=== PATIENT | female | born 1950 | race Caucasian/White ===

== ENCOUNTER 2021-11-06 11:48 | Outpatient (REF) | payer MEDICARE, MEDICAID, SELFPAY ==
[2021-11-06 13:41] LABS: MANUAL DIFF FLAG NO
[2021-11-06 13:53] LABS: Basophils Absolute Auto 0.1 X10*3/uL (0.0-0.2); Eosinophils Absolute Auto 0.3 X10*3/uL (0.0-0.4); Eosinophils Percent Auto 5.1 % (0-4); Hematocrit 31.1 % (37.0-47.0); Hemoglobin 8.6 g/dl (12.0-16.0); Imm Gran Abs Auto 0.02 X10*3/uL (0.00-0.03); Imm Gran Pct Auto 0.3 % (0.0-0.4); Lymphocytes Absolute Auto 1.3 X10*3/uL (1.2-4.9); Lymphocytes Percent Auto 22.7 % (20-40); Mean Corpuscular HGB Conc 27.7 g/dl (31.0-35.0); Mean Corpuscular Hemoglobin 20.9 pg (27.0-33.0); Mean Corpuscular Volume 75.5 fL (80.0-98.0); Mean Platelet Volume 9.8 fL (9.4-12.3); Monocytes Absolute Auto 0.4 X10*3/uL (0.1-1.2); Monocytes Percent Auto 6.8 % (2-11); Neutrophils Absolute Auto 3.7 x10*3/uL (2.0-8.3); Neutrophils Percent Auto 64.1 % (45-73); Platelet Count 238 X10*3/uL (160-400); Red Blood Count 4.12 X10*6/uL (4.20-5.50); Red Cell Distribution Width 21.4 % (11.0-16.0); White Blood Count 5.7 X10*3/uL (4.8-10.8)
[2021-11-06 14:14] LABS: Alanine Aminotransferase 10 U/L (0-31); Albumin Level 4.2 g/dL (3.5-5.0); Alkaline Phosphatase 81 U/L (39-117); Anion Gap 12 (12-20); Aspartate Amino Transferase 13 U/L (5-31); Bilirubin Total 0.3 mg/dL (0.0-1.0); Blood Urea Nitrogen 12 mg/dL (9-16); Carbon Dioxide 24 mmol/L (22-29); Chloride 103 mmol/L (96-108); Cholesterol 94 mg/dL; Estimated Glomerular Filt Rate 59; Glucose Fasting 103 mg/dL (60-99); HDL Cholesterol 43 mg/dL; LDL Cholesterol Calculated 35 mg/dl; Potassium 4.9 mmol/L (3.3-5.1); Sodium 134 mmol/L (135-145); Total Protein 6.6 g/dL (6.5-8.0); Triglycerides 84 mg/dL
[2021-11-06 14:23] LABS: Ferritin 30 ng/mL (10-250)
[2021-11-06 14:41] LABS: Vitamin B12 824 pg/mL (200-900)
[2021-11-12 13:02] LABS: Vitamin D 25-OH, D2 7 ng/mL; Vitamin D 25-OH, D3 64 ng/mL; Vitamin D 25-OH, Total 71 ng/mL (30-100)
== END 2021-11-06 11:49 | disposition home or self-care (01) ==
LOC: HO.HMGCLDS 11:48
PROVIDERS: Visit Provider Internal Medicine
DX: I10 Essential (primary) hypertension (principal); D50.9 Iron deficiency anemia, unspecified; J45.40 Moderate persistent asthma, uncomplicated; M81.0 Age-related osteoporosis without current pathological fracture; Z76.89 Persons encountering health services in other specified circumstances; Z79.01 Long term (current) use of anticoagulants; Z95.2 Presence of prosthetic heart valve
CPT/HCPCS: 36415; 80053; 80061; 82306; 82607; 82728; 85025

== ENCOUNTER → 2021-11-14 12:25 | Outpatient (BNV) | payer MEDICARE, MEDICAID, SELFPAY | PROVIDERS: PCP Internal Medicine; Referring Provider Internal Medicine; Visit Provider Internal Medicine | DX: D50.9 Iron deficiency anemia, unspecified (principal) | CPT/HCPCS: 99204; 99213; 99214 ==

== ENCOUNTER 2021-12-04 08:11 | Outpatient (REF) | payer MEDICARE, MEDICAID, SELFPAY | END 2021-12-04 08:12 | disposition home or self-care (01) | LOC: HO.MDS 08:11 | PROVIDERS: Visit Provider Internal Medicine | DX: D50.9 Iron deficiency anemia, unspecified (principal) | CPT/HCPCS: 96365; J1756 ==

== ENCOUNTER 2021-12-10 14:30 | Outpatient (REF) | payer MEDICARE, MEDICAID, SELFPAY | END 2021-12-10 14:31 | disposition home or self-care (01) | LOC: HO.MDS 14:30 | PROVIDERS: Visit Provider Internal Medicine | DX: D50.9 Iron deficiency anemia, unspecified (principal) | CPT/HCPCS: 96365; J1756 ==

== ENCOUNTER 2021-12-17 15:10 | Outpatient (REF) | payer MEDICARE, MEDICAID, SELFPAY | END 2021-12-17 15:11 | disposition home or self-care (01) | LOC: HO.MDS 15:10 | PROVIDERS: PCP Internal Medicine; Visit Provider Internal Medicine | DX: D50.9 Iron deficiency anemia, unspecified (principal) | CPT/HCPCS: 96365; J1756 ==

== ENCOUNTER 2022-01-15 12:55 | Outpatient (REF) | payer MEDICARE, MEDICAID, SELFPAY | END 2022-01-15 12:56 | disposition home or self-care (01) | LOC: HO.LAB 12:55 | PROVIDERS: PCP Internal Medicine; Visit Provider Internal Medicine Cardiovascular Disease | DX: Z13.89 Encounter for screening for other disorder (principal) ==

== ENCOUNTER 2022-03-17 13:31 | Inpatient (IN) | payer MEDICARE, MEDICAID, SELFPAY ==
--- NOTE | ~2022-03-17 | US_ITS ---
EXAMINATION: US VENOUS ULTRASOUND WITH DOPPLER LOWER EXTREMITY, BILATERAL CLINICAL INFORMATION: Lower extremity swelling, rule out DVT. COMPARISON: None TECHNIQUE: Ultrasound of the deep veins is performed from the hip to the calf with compression sonography and color and pulse Doppler assessment. Spectral analysis with color-flow imaging is performed. FINDINGS: RIGHT: There is normal venous compression and respiratory variation and augmented flow. The visualized common femoral vein, superficial femoral vein, profunda femoral vein, popliteal vein, and the trifurcation region shows no evidence of deep venous thrombosis. No right popliteal cyst. The subcutaneous soft tissues are unremarkable. LEFT: There is normal venous compression and respiratory variation and augmented flow. The visualized common femoral vein, superficial femoral vein, profunda femoral vein, popliteal vein, and the trifurcation region shows no evidence of deep venous thrombosis. No left popliteal cyst. The subcutaneous soft tissues are unremarkable. If the patient's symptoms persist, followup ultrasound in 5 days 7 days might be of value to exclude proximal propagation from a non-visualized calf vein. US/US venous duplex LE BI IMPRESSION: No evidence for deep venous thrombosis in the visualized veins of the bilateral lower extremities.
--- NOTE | ~2022-03-17 | XR_ITS ---
EXAMINATION: XR CHEST CLINICAL INFORMATION: Shortness of breath COMPARISON: 02/11/2020 TECHNIQUE: Frontal view of the chest was obtained. FINDINGS: Again seen are changes of median sternotomy. Heart size within normal limits. No CHF. Small right effusion/pleural thickening is present. Suture anchor present in the right humeral head. XR/XR chest 1V IMPRESSION: No acute intrathoracic disease.
[2022-03-17 14:20] VITALS: BP 146/52; PULSE 55; RESP 22; TEMP 36.9; O2SAT 93; BMI 40.0
--- NOTE | 2022-03-17 14:31 | ECG_ITS ---
Test Reason : LE EDEMA Blood Pressure : / mmHG Vent. Rate : 053 BPM Atrial Rate : 053 BPM P-R Int : 164 ms QRS Dur : 112 ms QT Int : 490 ms P-R-T Axes : 050 081 000 degrees QTc Int : [address] & T wave abnormality, consider anterior ischemia RSR' or QR pattern in V1 suggests right ventricular conduction delay Abnormal ECG When compared with ECG of 13-NOV-2017 13:41, Vent. rate has decreased BY 36 BPM Questionable change in QRS duration Referred By: Generic ED Physician Electronically Signed By:VICKY CANTU MD
[2022-03-17 15:25] LABS: MANUAL DIFF FLAG NO
[2022-03-17 15:28] LABS: Basophils Absolute Auto 0.1 X10*3/uL (0.0-0.2); Basophils Percent Auto 0.8 % (0-2); Eosinophils Absolute Auto 0.3 X10*3/uL (0.0-0.4); Eosinophils Percent Auto 3.4 % (0-4); Hematocrit 35.5 % (37.0-47.0); Hemoglobin 10.9 g/dl (12.0-16.0); Imm Gran Abs Auto 0.07 X10*3/uL (0.00-0.03); Imm Gran Pct Auto 0.7 % (0.0-0.4); Lymphocytes Absolute Auto 1.3 X10*3/uL (1.2-4.9); Lymphocytes Percent Auto 13.1 % (20-40); Mean Corpuscular HGB Conc 30.7 g/dl (31.0-35.0); Mean Corpuscular Hemoglobin 23.9 pg (27.0-33.0); Mean Corpuscular Volume 77.7 fL (80.0-98.0); Monocytes Absolute Auto 0.7 X10*3/uL (0.1-1.2); Neutrophils Absolute Auto 7.5 x10*3/uL (2.0-8.3); Platelet Count 249 X10*3/uL (160-400); Red Blood Count 4.57 X10*6/uL (4.20-5.50); Red Cell Distribution Width 23.3 % (11.0-16.0)
[2022-03-17 15:42] LABS: Anion Gap 13 (12-20); Blood Urea Nitrogen 15 mg/dL (9-16); Calcium 8.9 mg/dL (8.4-10.2); Carbon Dioxide 30 mmol/L (22-29); Chloride 93 mmol/L (96-108); Creatinine Clr Calc Pharmacy 57.9; Estimated Glomerular Filt Rate > 60; Glucose Random 94 mg/dL (60-115); Potassium 5.3 mmol/L (3.3-5.1); Sodium 131 mmol/L (135-145)
[2022-03-17 15:47] LABS: COVID-19 Test Negative (Negative); IDNOW Serial# 55D5AD1C
[2022-03-17 15:49] LABS: B Type Natriuretic Peptide 526 pg/mL (<100)
--- NOTE | 2022-03-17 16:34 | ED_ITS ---
HPI - SOB/Dyspnea General Chief Complaint: Weakness Stated Complaint: both legs swelling quest of clots Time Seen by Provider: 03/17/22 16:10 Source: patient and family Mode of arrival: ambulatory History of Present Illness HPI Narrative: 71-year-old female who is currently on anticoagulation and is under the care of Dr. Arriaga for persistent anemia that is suspected to be secondary to GI bleed due to anticoagulation. Patient is also on diuretics but states that she had a urinary tract infection last week with urinary frequency so she stopped taking her Lasix. Patient and the son at bedside states that she had 2 blood transfusions last week when on Thursday and the 2nd on Thursday and received Lasix at that time as well. Patient states that despite increasing her oral Lasix she states that her bilateral lower extremities have continue to stay edematous she has noted increased dyspnea on exertion with orthopnea. She also describes significant cramping within her bilateral lower extremities. Related Data Home Medications Medication Instructions Recorded Confirmed baclofen 10 mg tablet 10 mg PO DAILY 10/30/21 03/10/22 cephalexin 500 mg capsule 500 mg PO QID 10/30/21 03/10/22 escitalopram oxalate 20 mg tablet 20 mg PO DAILY 10/30/21 03/10/22 (Lexapro) furosemide 40 mg tablet (Lasix) 40 mg PO DAILY 10/30/21 03/10/22 gabapentin 100 mg capsule 200 mg PO TID 10/30/21 03/10/22 (Neurontin) losartan 25 mg tablet (Cozaar) 25 mg PO DAILY 10/30/21 03/10/22 metoprolol tartrate 100 mg tablet 100 mg PO BID 10/30/21 03/10/22 (Lopressor) potassium chloride 10 mEq 10 meq PO DAILY 10/30/21 03/10/22 tablet,extended release (K-Tab) tramadol 50 mg tablet (Ultram) 50 mg PO Q6H PRN Pain, Moderate 10/30/21 03/10/22 warfarin 1 mg tablet (Jantoven) 1 - 9 mg PO BEDTIME 10/30/21 03/10/22 zolpidem 10 mg tablet (Ambien) 10 mg PO BEDTIME PRN Insomnia 10/30/21 03/10/22 Acidophilus 5 mg PO DAILY 11/14/21 03/10/22 Vitamin D3 1,000 units PO DAILY 11/14/21 03/10/22 albuterol sulfate 90 mcg/actuation 2 puff PO Q6H 11/14/21 03/10/22 aerosol inhaler (Ventolin HFA) aspirin 325 mg PO DAILY 11/14/21 03/10/22 biotin 5,000 units PO DAILY 11/14/21 03/10/22 doxepin 25 mg capsule 1 cap PO BEDTIME 11/14/21 03/10/22 lorazepam 1 mg tablet 1 tab PO BID 11/14/21 03/10/22 magnesium 320 mg PO DAILY 11/14/21 03/10/22 vitamin B complex 1.3 mg PO DAILY 11/14/21 03/10/22 Previous Rx's Medication Instructions Recorded fluticasone furoate 100 1 ea inhalation DAILY 30 days #60 11/27/21 mcg-vilanterol 25 mcg/dose ea inhalation powder (Breo Ellipta) simvastatin 40 mg tablet (Zocor) 40 mg PO DAILY 90 days #90 tabs 01/09/22 ferrous sulfate 325 mg (65 mg 325 mg PO BID #60 tabs 03/10/22 iron) tablet (Feosol) ciprofloxacin HCl 250 mg tablet 250 mg PO BID #14 tabs 03/12/22 (Cipro) Allergies Allergy/AdvReac Type Severity Reaction Status Date / Time adhesive [ADHESIVE] Allergy Unknown LOCAL Verified 11/27/21 12:17 REACTION ENVIRONMENTAL Allergy Unknown UNK Uncoded 02/09/20 14:48 Review of Systems Review of Systems: Pertinent positives and negatives as stated in HPI 10 point review of systems otherwise negative. FOR[facility], [facility] Past Medical History Source: nursing notes reviewed Medical History Anemia Family History Family History Daughter Mental health disorder Substance use disorder Father Emphysema lung Mother Heart disease Stroke Pacemaker Arthritis Family/Other Colon cancer Sister Crohn's disease Social History Social History Household Members: Children Housing: Apartment Are you a primary career guidance counselor to a significant other at home: No Do you presently have visiting nurse or other home services: No Patient Tobacco Use Status: Never used Tobacco e-Cigarette/Vaping Use: Never Used Advance Directives: Yes Advance Directives Information Provided: No Advance Directives on File: No Advance Directives Date on File: 03/17/22 service: No Current occupational status: retired Cognitive needs: No Hearing needs: No Vision needs: Yes Physical Exam Vital Signs: Vital Signs: Last Vital Signs Temp 97.9 F 03/17/22 16:57 Pulse 60 03/17/22 16:57 Resp 20 03/17/22 16:57 BP 174/70 H 03/17/22 16:57 Pulse Ox 91 L 03/17/22 16:57 O2 Del Method 03/17/22 16:57 BMI result Body Mass Index 40.0 VITAL SIGNS: Reviewed. GENERAL: Well developed, well nourished, in no acute distress. HEAD: Normocephalic/atraumatic EYES: PERRLA, EOMI EARS: Ext canals without abnormality NOSE: Nares patent bilateral OROPHARYNX: no oral lesions noted, posterior pharynx clear LUNGS: Good inspiratory effort with bibasilar rales. No adventitious sounds or accessory muscle use. SpO2<93> CARDIOVASCULAR: Regular rate and rhythm without noted murmurs, no JVD but 2 to 3+ pitting edema to bilateral lower extremities ABDOMEN: Soft, non-tender, non-distended with bowel sounds. SHAD: Melena noted, good rectal tone MUSCULOSKELETAL: No tenderness, deformities, or effusions noted on gross inspection. EXTREMITIES: No cyanosis, clubbing or edema. SKIN: Inspection of the skin reveals no rashes NEUROLOGIC: Alert and oriented x 4. Strength and sensation to light touch were grossly intact x 4. Course Course Course Narrative: 71-year-old female with history and clinical presentation consistent with likely CHF exacerbation secondary to a combination of anemia as well as lapse in the use of her diuretics. On review of all investigations she is noted to have a hyperkalemia that may explain the reason for her current leg cramping. Will provide patient with D50/insulin/calcium gluconate for hyperkalemia. 1710: Will treat hyperkalemia with a combination of calcium gluconate, insulin, D50. Nursing reports that patient has had increased shortness of breath with SpO2 of 91% and was placed on supplemental oxygen. I discussed case with inpatient hospitalist who accepts admission. MDM - SOB/Dyspnea Lab Data Result diagrams: 03/17/22 15:18 03/17/22 15:18 Labs: Lab Results 03/17/22 03/17/22 03/17/22 Range/Units 15:18 15:18 15:18 WBC 10.0 (4.8-10.8) X10*3/uL RBC 4.57 D (4.20-5.50) X10*6/uL Hgb 10.9 L D (12.0-16.0) g/dl Hct 35.5 L D (37.0-47.0) % MCV 77.7 L (80.0-98.0) fL MCH 23.9 L (27.0-33.0) pg MCHC 30.7 L (31.0-35.0) g/dl RDW 23.3 H (11.0-16.0) % Plt Count 249 (160-400) X10*3/uL MPV 9.0 L (9.4-12.3) fL Immature Gran % (Auto) 0.7 H (0.0-0.4) % Neut % (Auto) 75.0 H (45-73) % Lymph % (Auto) 13.1 L (20-40) % [place] % (Auto) 7.0 (2-11) % Eos % (Auto) 3.4 (0-4) % Baso % (Auto) 0.8 (0-2) % Lymph # (Auto) 1.3 (1.2-4.9) X10*3/uL [place] # (Auto) 0.7 (0.1-1.2) X10*3/uL Eos # (Auto) 0.3 (0.0-0.4) X10*3/uL Baso # (Auto) 0.1 (0.0-0.2) X10*3/uL Abs Immat Gran (auto) 0.07 H (0.00-0.03) X10*3/uL Absolute Neuts (auto) 7.5 (2.0-8.3) x10*3/uL Absolute Nucleated RBC 0.000 (0.0-0.012) X10*3/uL Nucleated RBC % (auto) 0.0 (0.0-0.2) /100WBC PT (10.0-13.1) SEC INR (0.9-1.1) Sodium 131 L (135-145) mmol/L Potassium 5.3 H D (3.3-5.1) mmol/L Chloride 93 L (96-108) mmol/L Carbon Dioxide 30 H (22-29) mmol/L Anion Gap 13 (12-20) BUN 15 (9-16) mg/dL Creatinine 0.88 (0.5-1.4) mg/dL Estim Creat Clear Calc 57.9 Estimated GFR > 60 Random Glucose 94 (60-115) mg/dL Calcium 8.9 (8.4-10.2) mg/dL Magnesium 2.6 (1.6-2.6) mg/dL Total Bilirubin 0.4 (0.0-1.0) mg/dL Direct Bilirubin 0.2 (0.0-0.5) mg/dL AST 18 (5-31) U/L ALT 15 (0-31) U/L Alkaline Phosphatase 73 (39-117) U/L Troponin I High Sens 4.0 (<3.5-17.0) ng/L B-Natriuretic Peptide 526 H (<100) pg/mL Total Protein 6.0 L (6.5-8.0) g/dL Albumin 3.7 (3.5-5.0) g/dL Stool Occult Blood (NEGATIVE) COVID-19 ([facility]) (Negative) COVID-19 Clin Com 03/17/22 03/17/22 03/17/22 Range/Units 15:19 17:08 17:56 WBC (4.8-10.8) X10*3/uL RBC (4.20-5.50) X10*6/uL Hgb (12.0-16.0) g/dl Hct (37.0-47.0) % MCV (80.0-98.0) fL MCH (27.0-33.0) pg MCHC (31.0-35.0) g/dl RDW (11.0-16.0) % Plt Count (160-400) X10*3/uL MPV (9.4-12.3) fL Immature Gran % (Auto) (0.0-0.4) % Neut % (Auto) (45-73) % Lymph % (Auto) (20-40) % [place] % (Auto) (2-11) % Eos % (Auto) (0-4) % Baso % (Auto) (0-2) % Lymph # (Auto) (1.2-4.9) X10*3/uL [place] # (Auto) (0.1-1.2) X10*3/uL Eos # (Auto) (0.0-0.4) X10*3/uL Baso # (Auto) (0.0-0.2) X10*3/uL Abs Immat Gran (auto) (0.00-0.03) X10*3/uL Absolute Neuts (auto) (2.0-8.3) x10*3/uL Absolute Nucleated RBC (0.0-0.012) X10*3/uL Nucleated RBC % (auto) (0.0-0.2) /100WBC PT 28.9 H (10.0-13.1) SEC INR 2.4 H (0.9-1.1) Sodium (135-145) mmol/L Potassium (3.3-5.1) mmol/L Chloride (96-108) mmol/L Carbon Dioxide (22-29) mmol/L Anion Gap (12-20) BUN (9-16) mg/dL Creatinine (0.5-1.4) mg/dL Estim Creat Clear Calc Estimated GFR Random Glucose (60-115) mg/dL Calcium (8.4-10.2) mg/dL Magnesium (1.6-2.6) mg/dL Total Bilirubin (0.0-1.0) mg/dL Direct Bilirubin (0.0-0.5) mg/dL AST (5-31) U/L ALT (0-31) U/L Alkaline Phosphatase (39-117) U/L Troponin I High Sens (<3.5-17.0) ng/L B-Natriuretic Peptide (<100) pg/mL Total Protein (6.5-8.0) g/dL Albumin (3.5-5.0) g/dL Stool Occult Blood POSITIVE (NEGATIVE) COVID-19 ([facility]) Negative (Negative) COVID-19 Clin Com See Note Critical Care Time Critical Care Time Critical Care Time: Yes Total Critical Care Time: 30 Attestation: I personally attest to this time spent taking care of the patient. Discharge Plan Discharge Clinical Impression: CHF exacerbation, Chronic anticoagulation, Hypoxia, GI bleed, Hyperkalemia Patient Disposition: Admitted As Inpatient
[2022-03-17 16:57] VITALS: BP 174/70; PULSE 60; RESP 20; TEMP 36.6; O2SAT 91
[2022-03-17 17:17] LABS: OBS Int Ctl Valid YES; OBS1 POSITIVE (NEGATIVE)
[2022-03-17 17:18] LABS: Alanine Aminotransferase 15 U/L (0-31); Albumin Level 3.7 g/dL (3.5-5.0); Alkaline Phosphatase 73 U/L (39-117); Aspartate Amino Transferase 18 U/L (5-31); Bilirubin Direct 0.2 mg/dL (0.0-0.5); Bilirubin Total 0.4 mg/dL (0.0-1.0); Magnesium 2.6 mg/dL (1.6-2.6)
[2022-03-17] MEDS: Insulin Regular, Human 100 UNIT/ML 3 ML VIAL IVPUSH (18:05)
[2022-03-17 18:07] LABS: INTERNATIONAL NORM RATIO 2.4 (0.9-1.1); Prothrombin Time 28.9 SEC (10.0-13.1)
[2022-03-17] MEDS: Furosemide 100 MG/10 ML VIAL 60 MG IVPUSH (18:07)
[2022-03-17] MEDS: Dextrose 50 % 25 GM/50 ML SYRINGE IVPUSH (18:12)
[2022-03-17] MEDS: Calcium Gluconate/NaCl,Iso-Osm 2 GM/100 ML PLAST..BAG IV (18:27)
--- NOTE | 2022-03-17 18:33 | PM.IMHP ---
History of Present Illness Date of Service: 03/17/22 Chief Complaint: Dyspnea, LE edema A 71 years old lady with PMH of CHF, id a, asthma, PAF, showed ulcerative colitis, depression, post aortic and mitral valve replacement who presents to the hospital complaining of shortness of breath and increased lower extremity edema. The patient reports that she has been feeling more short of breath and tired for the last few days. Ten days ago she received blood transfusion for persistent anemia that she follow with Dr. Arriaga about believed to be secondary to chronic GI loss from being on warfarin but no bleeding noticed this time or even black stool by the patient. Reported that she is having crease lower extremities pain and edema with dyspnea on exertion. Denies any chest pain, palpitation, lightheadedness, nausea, vomiting, change in bowel habit or urinary symptoms. She states that despite of increasing her Lasix dosage she did not notice much improvement and decided to come to the hospital for further evaluation as she started to have cramps in her legs. In the emergency noted to have hyperkalemia, hyponatremia, elevated BNP with positive occult blood. Admitted for further evaluation and treatment. Review of Systems Review of Systems: No fever, chills but has generalized weakness No chest pain, palpitation , increased edema Dyspnea on exertion or coughing No abdominal pain, nausea or vomiting No urinary symptoms No any rash or wounds PMFSH Medical History Age related osteoporosis Anemia Anemia Anticoagulant long-term use Asthma, moderate persistent Chronic GERD Diastolic congestive heart failure Establishing care with new doctor, encounter for Generalized anxiety disorder with panic attacks History of ulcerative colitis Hypertension, essential Insomnia Interstitial cystitis Iron deficiency anemia Lipid disorder Major depression, recurrent Osteoarthritis, hip, bilateral Paroxysmal atrial fibrillation Post cardiotomy syndrome PTSD (post-traumatic stress disorder) Right carpal tunnel syndrome Urinary incontinence Wheezing Family History Daughter Mental health disorder Substance use disorder Father Emphysema lung Mother Heart disease Stroke Pacemaker Arthritis Family/Other Colon cancer Sister Crohn's disease Surgical History History of artificial heart valve History of kyphoplasty Status post aortic valve replacement Status post mitral valve replacement Social History Household Members: Children Housing: Apartment Are you a primary home visit field care manager to a significant other at home: No Do you presently have visiting nurse or other home services: No Patient Tobacco Use Status: Never used Tobacco e-Cigarette/Vaping Use: Never Used Advance Directives: Yes Advance Directives Information Provided: No Advance Directives on File: No Advance Directives Date on File: 03/17/22 service: No Current occupational status: retired Cognitive needs: No Hearing needs: No Vision needs: Yes Meds Allergies Allergy/AdvReac Type Severity Reaction Status Date / Time adhesive [ADHESIVE] Allergy Unknown LOCAL Verified 11/27/21 12:17 REACTION ENVIRONMENTAL Allergy Unknown UNK Uncoded 02/09/20 14:48 Active Medications: Current Medications Calcium Gluconate (Calcium Gluconate) 2 gm in 100 mls @ 50 mls/hr IV ONCE ONE Stop: 03/17/22 18:59 Last Admin: 03/17/22 18:27 Dose: 50 mls/hr Home Medications Medication Instructions Recorded Confirmed Last Taken Type baclofen 10 mg tablet 10 mg PO DAILY 10/30/21 03/10/22 Unknown History cephalexin 500 mg capsule 500 mg PO QID 10/30/21 03/10/22 Unknown History escitalopram oxalate 20 mg tablet 20 mg PO DAILY 10/30/21 03/10/22 Unknown History (Lexapro) furosemide 40 mg tablet (Lasix) 40 mg PO DAILY 10/30/21 03/10/22 Unknown History gabapentin 100 mg capsule 200 mg PO TID 10/30/21 03/10/22 Unknown History (Neurontin) losartan 25 mg tablet (Cozaar) 25 mg PO DAILY 10/30/21 03/10/22 Unknown History metoprolol tartrate 100 mg tablet 100 mg PO BID 10/30/21 03/10/22 Unknown History (Lopressor) potassium chloride 10 mEq 10 meq PO DAILY 10/30/21 03/10/22 Unknown History tablet,extended release (K-Tab) tramadol 50 mg tablet (Ultram) 50 mg PO Q6H PRN Pain, Moderate 10/30/21 03/10/22 Unknown History warfarin 1 mg tablet (Jantoven) 1 - 9 mg PO BEDTIME 10/30/21 03/10/22 Unknown History zolpidem 10 mg tablet (Ambien) 10 mg PO BEDTIME PRN Insomnia 10/30/21 03/10/22 Unknown History Acidophilus 5 mg PO DAILY 11/14/21 03/10/22 Unknown History Vitamin D3 1,000 units PO DAILY 11/14/21 03/10/22 Unknown History albuterol sulfate 90 mcg/actuation 2 puff PO Q6H 11/14/21 03/10/22 Unknown History aerosol inhaler (Ventolin HFA) aspirin 325 mg PO DAILY 11/14/21 03/10/22 Unknown History biotin 5,000 units PO DAILY 11/14/21 03/10/22 Unknown History doxepin 25 mg capsule 1 cap PO BEDTIME 11/14/21 03/10/22 Unknown History lorazepam 1 mg tablet 1 tab PO BID 11/14/21 03/10/22 Unknown History magnesium 320 mg PO DAILY 11/14/21 03/10/22 Unknown History vitamin B complex 1.3 mg PO DAILY 11/14/21 03/10/22 Unknown History Physical Exam Vital Signs and Narrative: Vital Signs: Last Vital Signs Temp 97.9 F 03/17/22 16:57 Pulse 60 03/17/22 16:57 Resp 20 03/17/22 16:57 BP 174/70 H 03/17/22 16:57 Pulse Ox 91 L 03/17/22 16:57 O2 Del Method 03/17/22 16:57 BMI result Body Mass Index 40.0 Const: Other: Constitutional : Alert, oriented, not in distress Neck : Normal inspection, Supple Cardiovascular : RRR, no JVP, systolic murmur, +1 bilateral lower extremity edema Respiratory : fair bilateral air entry, no crackles, wheezes or rhonchi Gastrointestinal: soft, lax, Normal bowel sounds, Non tender Skin : Warm, Dry, no rash or erythema noted in lower extremities Neurological : Alert & oriented x3, No focal deficit , CN 2-12 within normal, good sensation lower extremities Results Labs CBC and Chem 7: 03/17/22 15:18 03/17/22 15:18 Labs: Laboratory Results - last 24 hr 03/17/22 03/17/22 03/17/22 15:18 15:18 15:18 MCV 77.7 L MCH 23.9 L MCHC 30.7 L RDW 23.3 H Plt Count 249 MPV 9.0 L Immature Gran % (Auto) 0.7 H Neut % (Auto) 75.0 H Lymph % (Auto) 13.1 L [place] % (Auto) 7.0 Eos % (Auto) 3.4 Baso % (Auto) 0.8 Lymph # (Auto) 1.3 [place] # (Auto) 0.7 Eos # (Auto) 0.3 Baso # (Auto) 0.1 Abs Immat Gran (auto) 0.07 H Absolute Neuts (auto) 7.5 Absolute Nucleated RBC 0.000 Nucleated RBC % (auto) 0.0 PT INR Anion Gap 13 Estim Creat Clear Calc 57.9 Estimated GFR > 60 Random Glucose 94 Calcium 8.9 Magnesium 2.6 Total Bilirubin 0.4 Direct Bilirubin 0.2 AST 18 ALT 15 Alkaline Phosphatase 73 Troponin I High Sens 4.0 B-Natriuretic Peptide 526 H Total Protein 6.0 L Albumin 3.7 Stool Occult Blood COVID-19 ([facility]) [facility] 03/17/22 03/17/22 03/17/22 15:19 17:08 17:56 MCV MCH MCHC RDW Plt Count MPV Immature Gran % (Auto) Neut % (Auto) Lymph % (Auto) [place] % (Auto) Eos % (Auto) Baso % (Auto) Lymph # (Auto) [place] # (Auto) Eos # (Auto) Baso # (Auto) Abs Immat Gran (auto) Absolute Neuts (auto) Absolute Nucleated RBC Nucleated RBC % (auto) PT 28.9 H INR 2.4 H Anion Gap Estim Creat Clear Calc Estimated GFR Random Glucose Calcium Magnesium Total Bilirubin Direct Bilirubin AST ALT Alkaline Phosphatase Troponin I High Sens B-Natriuretic Peptide Total Protein Albumin Stool Occult Blood POSITIVE COVID-19 ([facility]) Negative COVID-19 [facility] See Note Imaging Radiologist's Impressions: Impressions Chest X-Ray 03/17/22 16:45 IMPRESSION: No acute intrathoracic disease. Assessment and Plan (1) CHF exacerbation: Status: Acute (2) Chronic anticoagulation: Status: Acute (3) Hyperkalemia: Status: Acute (4) Positive occult stool blood test: Status: Acute Plan A 71 years old lady with PMH of CHF, id a, asthma, PAF, showed ulcerative colitis, depression, post aortic and mitral valve replacement who presents to the hospital complaining of shortness of breath and increased lower extremity edema. Acute on chronic diastolic CHF exacerbation Elevated BNP and increased edema lower extremities Does not seem to be extreme, dyspnea could be explained by physical deconditioning Start IV diuresis with Lasix If no improvement in swelling will try [place] wrap Follow intake and output Hyperkalemia Received insulin, D5 and calcium for symptomatic hyperkalemia: cramps in the emergency Follow BMP Positive occult blood Hemoglobin higher than baseline, recent transfusion No overt bleeding Monitor H and H PAF Continue metoprolol and warfarin Post AVR, MVR Warfarin INR goal 2.5-3.5 Pending med reconciliation to start home medications DVT PPX Warfarin The patient will likely need 2. Overnight hospital stay for evaluation treatment of heart failure exacerbation to prevent possible decompensation into hypoxic respiratory failure Quality Stroke Does the patient have a stroke diagnosis?: No VTE Prior VTE?: No VTE Risk Level:: Medical - moderate - high VTE Device Contraindication: Treatment Not Indicated VTE Drug Contraindication: N/A - Med Ordered
[2022-03-17 19:11] VITALS: BP 162/69; PULSE 57; RESP 12; TEMP 36.6; O2SAT 92
--- NOTE | 2022-03-17 21:23 | MHC.CM.PN ---
IMM 03/17. CM met with admitted patient with bed assignment pending. HCP reviewed, completed, and signed. Copies given. Uploaded into [employer] and [facility] [employer]. HCP/son Mich Rodriguez ([phone]). Covid vax/boosted x1/[employer]. [facility]. 20 [employer] hours/wk. Son is [employer]. No DME. Pt furniture walks . PT is pending. Pt does not think she needs PT, but is willing to have assessment. Pt desires d/c home. No referrals made at this time. Son will transport home. CM to follow for d/c planning.
--- NOTE | 2022-03-17 22:12 | PHA.MEDREC ---
Pharmacy Consult ? Medication Reconciliation Pharmacy has completed the medication reconciliation. PT HAD A LIST AND ALSO SPOKE WITH PT
[2022-03-17] MEDS: LORazepam 1 MG TABLET PO (22:22)
[2022-03-17] MEDS: Acetaminophen 325 MG TABLET 650 MG PO (22:22)
[2022-03-17] MEDS: Ferrous Sulfate 324 MG TABLET.DR PO (22:22)
[2022-03-17] MEDS: Gabapentin 100 MG CAPSULE 200 MG PO (22:22)
[2022-03-17] MEDS: Atorvastatin Calcium 20 MG TABLET PO (22:22)
[2022-03-17] MEDS: Metoprolol Tartrate 100 MG TABLET PO (22:23)
[2022-03-17] MEDS: Warfarin Sodium 2 MG TABLET 4 MG PO (22:23)
[2022-03-17] MEDS: traMADoL HCL 50 MG TABLET PO (22:23)
[2022-03-17 23:01] VITALS: BP 130/50; PULSE 55; RESP 13; TEMP 36.6; O2SAT 95
[2022-03-18] VITALS (10 sets, daily range): BP systolic 113–155; BP diastolic 38–93; PULSE 54–83; RESP 11–20; TEMP 35.8–37.2; O2SAT 93–99
[2022-03-18] MEDS: 0.9 % Sodium Chloride Flush 3 ML SYRINGE IVFLUSH ×3 (00:28→17:52)
--- NOTE | 2022-03-18 00:31 | PC.NURSE ---
Staff came to perform ultrasound, but pt. pain too high. Pt. didn't feel as if she could tolerate the movement and squeezing of the ultrasound . Pt c/o cramping in her calves. Ultrasound will try and repeat tomorrow.
[2022-03-18] MEDS: levoFLOXacin 750 MG TABLET PO (01:14)
[2022-03-18] MEDS: Doxepin HCl 25 MG CAPSULE PO (01:14)
[2022-03-18 04:47] LABS: Hematocrit 35.7 % (37.0-47.0); Hemoglobin 11.2 g/dl (12.0-16.0); Mean Corpuscular HGB Conc 31.4 g/dl (31.0-35.0); Mean Corpuscular Hemoglobin 24.9 pg (27.0-33.0); Mean Corpuscular Volume 79.3 fL (80.0-98.0); Mean Platelet Volume 9.4 fL (9.4-12.3); Platelet Count 218 X10*3/uL (160-400); Red Cell Distribution Width 23.5 % (11.0-16.0); White Blood Count 8.4 X10*3/uL (4.8-10.8)
[2022-03-18 04:53] LABS: INTERNATIONAL NORM RATIO 2.4 (0.9-1.1); Prothrombin Time 28.4 SEC (10.0-13.1)
[2022-03-18 05:03] LABS: Anion Gap 16 (12-20); Blood Urea Nitrogen 16 mg/dL (9-16); Calcium 9.3 mg/dL (8.4-10.2); Carbon Dioxide 34 mmol/L (22-29); Chloride 88 mmol/L (96-108); Creatinine Clr Calc Pharmacy 53.1; Estimated Glomerular Filt Rate 57; Glucose Random 93 mg/dL (60-115); Potassium 4.6 mmol/L (3.3-5.1); Sodium 133 mmol/L (135-145)
[2022-03-18 05:09] LABS: B Type Natriuretic Peptide 349 pg/mL (<100)
--- NOTE | 2022-03-18 08:00 | PC.NURSE ---
pt is a/0 x 4 no sob/devin noted. lungs - diminshed. . heart souds - regular (rolando, 55). abd obese, soft and non-tender, bs + x 4quads. l lower ext 2+ pitting edema, r lower leg 1+ pitting edema. pt to have ultrasound of leg(s) today. denies any pain disc. pt aware of plan of care.
[2022-03-18] MEDS: Fluticasone/Vilanterol 100/25 BLST.W.DEV 1 PUFF INHALE (08:30)
[2022-03-18 09:38] LABS: INTERNATIONAL NORM RATIO 2.5 (0.9-1.1); Prothrombin Time 29.4 SEC (10.0-13.1)
[2022-03-18] MEDS: Omeprazole 40 MG CAPSULE.DR PO (09:44)
[2022-03-18] MEDS: Aspirin 81 MG TAB.CHEW PO (09:44)
[2022-03-18] MEDS: Escitalopram Oxalate 20 MG TABLET PO (09:44)
[2022-03-18] MEDS: Losartan Potassium 25 MG TABLET PO (09:44)
[2022-03-18] MEDS: Multivitamin TABLET 1 TAB PO (09:44)
[2022-03-18] MEDS: Magnesium Oxide 400 MG TABLET PO (09:45)
[2022-03-18] MEDS: Escitalopram Oxalate 5 MG TABLET PO (09:45)
[2022-03-18] MEDS: Furosemide 100 MG/10 ML VIAL 60 MG IVPUSH (09:45)
--- NOTE | 2022-03-18 10:04 | HO.PM.IMPN ---
Subjective Subjective Date of Service: 03/18/22 Interval History: Seen and evaluated this morning Reports that swelling has decreased in lower extremities Denies any shortness of breath Reports cramping in both canals No other overnight events Review of Systems No fever, chills but has generalized weakness No chest pain, palpitation , increased edema Dyspnea on exertion or coughing No abdominal pain, nausea or vomiting No urinary symptoms No any rash or wounds Physical Exam Vital Signs: Vital Signs: Last Vital Signs Temp 97.6 F 03/18/22 07:26 Pulse 55 03/18/22 09:40 Resp 12 03/18/22 09:40 BP 137/38 L 03/18/22 09:40 Pulse Ox 94 03/18/22 09:40 O2 Del Method 03/18/22 09:40 O2 Flow Rate 2 03/18/22 07:26 BMI result Body Mass Index 40.0 Const: Other: Constitutional : Alert, oriented, not in distress Neck : Normal inspection, Supple Cardiovascular : RRR, no JVP, systolic murmur, +1 bilateral lower extremity edema Respiratory : fair bilateral air entry, no crackles, wheezes or rhonchi Gastrointestinal: soft, lax, Normal bowel sounds, Non tender Skin : Warm, Dry, no rash or erythema noted in lower extremities Neurological : Alert & oriented x3, No focal deficit , CN 2-12 within normal, good sensation lower extremities Objective Data Active Medications Acetaminophen (Acetaminophen 325 Mg Tablet) 650 mg PO Q6H PRN PRN Reason: Pain, Mild (Pain Scale 1-3) Last Admin: 03/17/22 22:22 Dose: 650 mg Documented By: DOUG Albuterol Sulfate (Albuterol Sulfate (0.083%) 2.5 Mg/3 Ml Vial.Neb) 2.5 mg INHALE Q4H PRN PRN Reason: wheezing Aspirin (Aspirin 81 Mg Tab.Chew) 81 mg PO DAILY [facility] Last Admin: 03/18/22 09:44 Dose: 81 mg Documented By: MARIBELL Atorvastatin Calcium (Atorvastatin Calcium 20 Mg Tablet) 20 mg PO DAILY [facility] Last Admin: 03/17/22 22:22 Dose: 20 mg Documented By: DOUG Doxepin HCl (Doxepin Hcl 25 Mg Capsule) 25 mg PO BEDTIME [facility] Last Admin: 03/18/22 01:14 Dose: 25 mg Documented By: MAGI Ergocalciferol (Ergocalciferol (Vitamin D2) 1,250 Mcg Capsule) 1,250 mcg PO We@0900 [facility] Escitalopram Oxalate (Escitalopram Oxalate 5 Mg Tablet) 5 mg PO DAILY [facility] Last Admin: 03/18/22 09:45 Dose: 5 mg Documented By: MARIBELL Escitalopram Oxalate (Escitalopram Oxalate 20 Mg Tablet) 20 mg PO DAILY [facility] Last Admin: 03/18/22 09:44 Dose: 20 mg Documented By: MARIBELL Ferrous Sulfate (Ferrous Sulfate 324 Mg Tablet.Dr) 324 mg PO BID@0900,1700 [facility] Last Admin: 03/17/22 22:22 Dose: 324 mg Documented By: DOUG Fluticasone/Vilanterol (Fluticasone/Vilanterol 100/25 Blst.W.Dev) 1 puff INHALE RDAILY [facility] Last Admin: 03/18/22 08:30 Dose: 1 puff Documented By: LUIS CARLOS Furosemide (Furosemide 100 Mg/10 Ml Vial) 60 mg IVPUSH DAILY [facility]; Protocol Last Admin: 03/18/22 09:45 Dose: 60 mg Documented By: MARIBELL Gabapentin (Gabapentin 100 Mg Capsule) 200 mg PO TID [facility] Last Admin: 03/17/22 22:22 Dose: 200 mg Documented By: DOUG Lorazepam (Lorazepam 0.5 Mg Tablet) 0.5 mg PO DAILY PRN PRN Reason: Anxiety Lorazepam (Lorazepam 1 Mg Tablet) 1 mg PO BEDTIME PRN PRN Reason: Anxiety Last Admin: 03/17/22 22:22 Dose: 1 mg Documented By: DOUG Losartan Potassium (Losartan Potassium 25 Mg Tablet) 25 mg PO DAILY [facility]; Protocol Last Admin: 03/18/22 09:44 Dose: 25 mg Documented By: MARIBELL Magnesium Oxide (Magnesium Oxide 400 Mg Tablet) 400 mg PO DAILY [facility] Last Admin: 03/18/22 09:45 Dose: 400 mg Documented By: MARIBELL Metoprolol Tartrate (Metoprolol Tartrate 100 Mg Tablet) 100 mg PO BID [facility]; Protocol Last Admin: 03/17/22 22:23 Dose: 100 mg Documented By: DOUG Multivitamins/Vitamin C (Multivitamin Tablet) 1 tab PO DAILY [facility] Last Admin: 03/18/22 09:44 Dose: 1 tab Documented By: MARIBELL Non-Formulary Medication (Solifenacin) 1 tab PO DAILY [facility] Non-Formulary Medication (Ciprofloxacin) 250 mg PO BID [facility] Omeprazole (Omeprazole 40 Mg Capsule.Dr) 40 mg PO DAILY@0630 [facility] Last Admin: 03/18/22 09:44 Dose: 40 mg Documented By: MARIBELL Ondansetron HCl (Ondansetron Hcl 4 Mg/2 Ml Vial) 4 mg IVPUSH Q8H PRN PRN Reason: Nausea and Vomiting Pharmacy Consult (Consult Rx Perform Med Rec) 1 each MISCELLANE ONCE PRN PRN Reason: Consult order Sodium Chloride (0.9 % Sodium Chloride Flush 3 Ml Syringe) 3 ml IVFLUSH QSHIFT [facility] Last Admin: 03/18/22 09:46 Dose: 3 ml Documented By: MARIBELL Tramadol HCl (Tramadol Hcl 50 Mg Tablet) 50 mg PO Q6H PRN PRN Reason: Pain, Moderate (Pain Scale 4-6 Last Admin: 03/17/22 22:23 Dose: 50 mg Documented By: DOUG Warfarin Sodium (Warfarin Sodium 2 Mg Tablet) 4 mg PO DAILY@1800 [facility] Last Admin: 03/17/22 22:23 Dose: 4 mg Documented By: DOUG Labs CBC & Chem 7: 03/18/22 04:21 03/18/22 04:21 Labs: Laboratory Results - last 24 hr 03/17/22 03/17/22 03/17/22 15:18 15:18 15:18 MCV 77.7 L MCH 23.9 L MCHC 30.7 L RDW 23.3 H Plt Count 249 MPV 9.0 L Immature Gran % (Auto) 0.7 H Neut % (Auto) 75.0 H Lymph % (Auto) 13.1 L [place] % (Auto) 7.0 Eos % (Auto) 3.4 Baso % (Auto) 0.8 Lymph # (Auto) 1.3 [place] # (Auto) 0.7 Eos # (Auto) 0.3 Baso # (Auto) 0.1 Abs Immat Gran (auto) 0.07 H Absolute Neuts (auto) 7.5 Absolute Nucleated RBC 0.000 Nucleated RBC % (auto) 0.0 PT INR Anion Gap 13 Estim Creat Clear Calc 57.9 Estimated GFR > 60 Random Glucose 94 Calcium 8.9 Magnesium 2.6 Total Bilirubin 0.4 Direct Bilirubin 0.2 AST 18 ALT 15 Alkaline Phosphatase 73 Troponin I High Sens 4.0 B-Natriuretic Peptide 526 H Total Protein 6.0 L Albumin 3.7 Stool Occult Blood COVID-19 ([facility]ZEL) COVID-19 Clin Com 03/17/22 03/17/22 03/17/22 15:19 17:08 17:56 MCV MCH MCHC RDW Plt Count MPV Immature Gran % (Auto) Neut % (Auto) Lymph % (Auto) [place] % (Auto) Eos % (Auto) Baso % (Auto) Lymph # (Auto) [place] # (Auto) Eos # (Auto) Baso # (Auto) Abs Immat Gran (auto) Absolute Neuts (auto) Absolute Nucleated RBC Nucleated RBC % (auto) PT 28.9 H INR 2.4 H Anion Gap Estim Creat Clear Calc Estimated GFR Random Glucose Calcium Magnesium Total Bilirubin Direct Bilirubin AST ALT Alkaline Phosphatase Troponin I High Sens B-Natriuretic Peptide Total Protein Albumin Stool Occult Blood POSITIVE COVID-19 (HAZEL) Negative COVID-19 Clin Com See Note 03/18/22 03/18/22 03/18/22 04:21 04:21 04:21 MCV 79.3 L MCH 24.9 L MCHC 31.4 RDW 23.5 H Plt Count 218 MPV 9.4 Immature Gran % (Auto) Neut % (Auto) Lymph % (Auto) [place] % (Auto) Eos % (Auto) Baso % (Auto) Lymph # (Auto) [place] # (Auto) Eos # (Auto) Baso # (Auto) Abs Immat Gran (auto) Absolute Neuts (auto) Absolute Nucleated RBC 0.000 Nucleated RBC % (auto) 0.0 PT INR Anion Gap 16 Estim Creat Clear Calc 53.1 Estimated GFR 57 Random Glucose 93 Calcium 9.3 Magnesium Total Bilirubin Direct Bilirubin AST ALT Alkaline Phosphatase Troponin I High Sens B-Natriuretic Peptide 349 H Total Protein Albumin Stool Occult Blood COVID-19 (HAZEL) COVID-19 Clin Com 03/18/22 03/18/22 04:21 09:26 MCV MCH MCHC RDW Plt Count MPV Immature Gran % (Auto) Neut % (Auto) Lymph % (Auto) [place] % (Auto) Eos % (Auto) Baso % (Auto) Lymph # (Auto) [place] # (Auto) Eos # (Auto) Baso # (Auto) Abs Immat Gran (auto) Absolute Neuts (auto) Absolute Nucleated RBC Nucleated RBC % (auto) PT 28.4 H 29.4 H INR 2.4 H 2.5 H Anion Gap Estim Creat Clear Calc Estimated GFR Random Glucose Calcium Magnesium Total Bilirubin Direct Bilirubin AST ALT Alkaline Phosphatase Troponin I High Sens B-Natriuretic Peptide Total Protein Albumin Stool Occult Blood COVID-19 (HAZEL) COVID-19 Clin Com Assessment and Plan (1) CHF exacerbation: Status: Acute (2) Positive occult stool blood test: Status: Acute (3) Hyperkalemia: Status: Acute Plan A 71 years old lady with PMH of CHF, id a, asthma, PAF, showed ulcerative colitis, depression, post aortic and mitral valve replacement who presents to the hospital complaining of shortness of breath and increased lower extremity edema. Acute on chronic diastolic CHF exacerbation Elevated BNP and increased edema lower extremities Improving Does not seem to be extreme, dyspnea likely worse with physical deconditioning and decreased physical activity Continue IV diuresis with Lasix If no improvement in swelling will try [place] wrap Follow intake and output Leg cramps Pending Doppler ultrasound to rule out DVT, less likely while on warfarin Potassium corrected Could be related to mineral, vitamin deficiency To do physical therapy Pending vitamin-D, mg, B12, folate Hyperkalemia Resolved Follow BMP Positive occult blood Hemoglobin higher than baseline, recent transfusion No overt bleeding Monitor H and H PAF Continue metoprolol and warfarin Post AVR, MVR Warfarin INR goal 2.5-3.5 DVT PPX Warfarin The patient will likely need Overnight hospital stay for evaluation treatment of heart failure exacerbation to prevent possible decompensation into hypoxic respiratory failure Quality Stroke Does the patient have a stroke diagnosis?: No VTE Prior VTE?: No VTE Risk Level:: Medical - moderate - high VTE Device Contraindication: Treatment Not Indicated VTE Drug Contraindication: N/A - Med Ordered
--- NOTE | 2022-03-18 10:52 | PC.NURSE ---
pt's son leonel mcknight ([phone]) [place] [facility] [place] status.
[2022-03-18 11:01] LABS: Vitamin D 25-OH Total 70.4 ng/mL (>30)
[2022-03-18 11:19] LABS: Folate 18.2 ng/mL (> or = 4.0); Vitamin B12 507 pg/mL (200-900)
[2022-03-18] MEDS: levoFLOXacin 250 MG TABLET PO (12:56)
[2022-03-18] MEDS: Tolterodine Tartrate LA 4 MG CAP.ER.24H PO (12:57)
[2022-03-18] MEDS: Tolterodine Tartrate LA 4 MG CAP.ER.24H 1 MG PO (13:13)
[2022-03-18] MEDS: Ferrous Sulfate 324 MG TABLET.DR PO (17:51)
[2022-03-18] MEDS: Gabapentin 100 MG CAPSULE 200 MG PO ×2 (17:51→20:16)
[2022-03-18] MEDS: Warfarin Sodium 2 MG TABLET 4 MG PO (17:53)
[2022-03-18] MEDS: LORazepam 1 MG TABLET PO (17:54)
[2022-03-18] MEDS: traMADoL HCL 50 MG TABLET PO (20:15)
[2022-03-18] MEDS: Metoprolol Tartrate 100 MG TABLET PO (20:16)
[2022-03-19] MEDS: 0.9 % Sodium Chloride Flush 3 ML SYRINGE IVFLUSH ×4 (01:53→22:54)
[2022-03-19 03:16] VITALS: BP 121/60; PULSE 83; RESP 18; TEMP 36.3; O2SAT 99
[2022-03-19] MEDS: Omeprazole 40 MG CAPSULE.DR PO (05:52)
[2022-03-19 07:39] VITALS: BP 153/72; PULSE 60; RESP 17; TEMP 36.4; O2SAT 97
[2022-03-19 08:38] LABS: Anion Gap 16 (12-20); Blood Urea Nitrogen 17 mg/dL (9-16); Calcium 9.2 mg/dL (8.4-10.2); Carbon Dioxide 32 mmol/L (22-29); Chloride 88 mmol/L (96-108); Creatinine Clr Calc Pharmacy 54.2; Estimated Glomerular Filt Rate 58; Glucose Random 95 mg/dL (60-115); Potassium 4.7 mmol/L (3.3-5.1); Sodium 131 mmol/L (135-145)
[2022-03-19] MEDS: Fluticasone/Vilanterol 100/25 BLST.W.DEV 1 PUFF INHALE (10:25)
[2022-03-19] MEDS: Gabapentin 100 MG CAPSULE 200 MG PO ×3 (10:50→22:54)
[2022-03-19] MEDS: Magnesium Oxide 400 MG TABLET PO (10:50)
[2022-03-19] MEDS: Metoprolol Tartrate 100 MG TABLET PO ×2 (10:50→22:54)
[2022-03-19] MEDS: Atorvastatin Calcium 20 MG TABLET PO (10:50)
[2022-03-19] MEDS: Tolterodine Tartrate LA 4 MG CAP.ER.24H PO (10:50)
[2022-03-19] MEDS: Ferrous Sulfate 324 MG TABLET.DR PO ×2 (10:51→17:49)
[2022-03-19] MEDS: Escitalopram Oxalate 20 MG TABLET PO (10:51)
[2022-03-19] MEDS: Furosemide 100 MG/10 ML VIAL 60 MG IVPUSH (10:51)
[2022-03-19] MEDS: Losartan Potassium 25 MG TABLET PO (10:51)
[2022-03-19] MEDS: Escitalopram Oxalate 5 MG TABLET PO (10:52)
[2022-03-19] MEDS: Ergocalciferol (Vitamin D2) 1,250 MCG CAPSULE 1250 MCG PO (10:59)
[2022-03-19] MEDS: Multivitamin TABLET 1 TAB PO (11:02)
[2022-03-19 11:25] VITALS: BP 133/62; PULSE 65; RESP 18; TEMP 36.9; O2SAT 93
[2022-03-19] MEDS: levoFLOXacin 250 MG TABLET PO (12:45)
[2022-03-19 14:12] LABS: INTERNATIONAL NORM RATIO 2.5 (0.9-1.1)
--- NOTE | 2022-03-19 14:31 | P.PNIM_ITS ---
Subjective Subjective Date of Service: 03/19/22 Interval History: cc: LE edema interval history: Cardiovascular Cardiovascular: Reports no additional cardiovascular complaints Respiratory Respiratory: Reports no additional respiratory complaints Physical Exam Vital Signs: Vital Signs: Last Vital Signs Temp 98.4 F 03/19/22 11:25 Pulse 65 03/19/22 11:25 Resp 18 03/19/22 11:25 BP 133/62 03/19/22 11:25 Pulse Ox 93 03/19/22 11:25 O2 Del Method 03/19/22 11:25 O2 Flow Rate 2 03/19/22 07:39 BMI result Body Mass Index 40.0 General: AO X 3, no acute distress Resp: CTA bilateral, no accessory muscles used CVS: S1,S2,RRR GI: soft, non tender, non distended Neuro: motor grossly intact, alert Psych: appropriate affect, appropriate insight Objective Data Active Medications Acetaminophen (Acetaminophen 325 Mg Tablet) 650 mg PO Q6H PRN PRN Reason: Pain, Mild (Pain Scale 1-3) Last Admin: 03/17/22 22:22 Dose: 650 mg Documented By: DOUG Albuterol Sulfate (Albuterol Sulfate (0.083%) 2.5 Mg/3 Ml Vial.Neb) 2.5 mg INHALE Q4H PRN PRN Reason: wheezing Atorvastatin Calcium (Atorvastatin Calcium 20 Mg Tablet) 20 mg PO DAILY [facility] Last Admin: 03/19/22 10:50 Dose: 20 mg Documented By: DON Doxepin HCl (Doxepin Hcl 25 Mg Capsule) 25 mg PO BEDTIME [facility] Last Admin: 03/18/22 01:14 Dose: 25 mg Documented By: MAGI Ergocalciferol (Ergocalciferol (Vitamin D2) 1,250 Mcg Capsule) 1,250 mcg PO We@0900 [facility] Last Admin: 03/19/22 10:59 Dose: 1,250 mcg Documented By: DON Escitalopram Oxalate (Escitalopram Oxalate 5 Mg Tablet) 5 mg PO DAILY [facility] Last Admin: 03/19/22 10:52 Dose: 5 mg Documented By: DON Escitalopram Oxalate (Escitalopram Oxalate 20 Mg Tablet) 20 mg PO DAILY [facility] Last Admin: 03/19/22 10:51 Dose: 20 mg Documented By: DON Ferrous Sulfate (Ferrous Sulfate 324 Mg Tablet.) 324 mg PO BID@0900,1700 [facility] Last Admin: 03/19/22 10:51 Dose: 324 mg Documented By: DON Fluticasone/Vilanterol (Fluticasone/Vilanterol 100/25 Blst.W.Dev) 1 puff INHALE RDAILY [facility] Last Admin: 03/19/22 10:25 Dose: 1 puff Documented By: BHAVIK Furosemide (Furosemide 100 Mg/10 Ml Vial) 60 mg IVPUSH DAILY [facility]; Protocol Last Admin: 03/19/22 10:51 Dose: 60 mg Documented By: DON Gabapentin (Gabapentin 100 Mg Capsule) 200 mg PO TID [facility] Last Admin: 03/19/22 10:50 Dose: 200 mg Documented By: DON Levofloxacin (Levofloxacin 250 Mg Tablet) 250 mg PO Q24H [facility] Last Admin: 03/19/22 12:45 Dose: 250 mg Documented By: DON Lorazepam (Lorazepam 0.5 Mg Tablet) 0.5 mg PO DAILY PRN PRN Reason: Anxiety Lorazepam (Lorazepam 1 Mg Tablet) 1 mg PO BEDTIME PRN PRN Reason: Anxiety Last Admin: 03/18/22 17:54 Dose: 1 mg Documented By: HALEIGH Losartan Potassium (Losartan Potassium 25 Mg Tablet) 25 mg PO DAILY [facility]; Protocol Last Admin: 03/19/22 10:51 Dose: 25 mg Documented By: DON Magnesium Oxide (Magnesium Oxide 400 Mg Tablet) 400 mg PO DAILY [facility] Last Admin: 03/19/22 10:50 Dose: 400 mg Documented By: DON Metoprolol Tartrate (Metoprolol Tartrate 100 Mg Tablet) 100 mg PO BID [facility]; Protocol Last Admin: 03/19/22 10:50 Dose: 100 mg Documented By: DON Multivitamins/Vitamin C (Multivitamin Tablet) 1 tab PO DAILY [facility] Last Admin: 03/19/22 11:02 Dose: 1 tab Documented By: DON Omeprazole (Omeprazole 40 Mg Capsule.) 40 mg PO DAILY@0630 [facility] Last Admin: 03/19/22 05:52 Dose: 40 mg Documented By: SCOTTJ Ondansetron HCl (Ondansetron Hcl 4 Mg/2 Ml Vial) 4 mg IVPUSH Q8H PRN PRN Reason: Nausea and Vomiting Pharmacy Consult (Consult Rx Perform Med Rec) 1 each MISCELLANE ONCE PRN PRN Reason: Consult order Sodium Chloride (0.9 % Sodium Chloride Flush 3 Ml Syringe) 3 ml IVFLUSH QSHIFT [facility] Last Admin: 03/19/22 10:52 Dose: 3 ml Documented By: DON Tolterodine Tartrate (Tolterodine Tartrate [place] 4 Mg Cap.Er.24h) 4 mg PO DAILY [facility] Last Admin: 03/19/22 10:50 Dose: 4 mg Documented By: DON Tramadol HCl (Tramadol Hcl 50 Mg Tablet) 50 mg PO Q6H PRN PRN Reason: Pain, Moderate (Pain Scale 4-6 Last Admin: 03/18/22 20:15 Dose: 50 mg Documented By: AMIANH Warfarin Sodium (Warfarin Sodium 2 Mg Tablet) 4 mg PO DAILY@1800 [facility] Last Admin: 03/18/22 17:53 Dose: 4 mg Documented By: HALEIGH Labs CBC & Chem 7: 03/18/22 04:21 03/19/22 07:25 Labs: Laboratory Results - last 24 hr 03/19/22 03/19/22 07:25 13:57 PT 30.0 H INR 2.5 H Anion Gap 16 Estim Creat Clear Calc 54.2 Estimated GFR 58 Random Glucose 95 Calcium 9.2 Assessment and Plan (1) CHF exacerbation: Status: Acute (2) Positive occult stool blood test: Status: Acute (3) Hyperkalemia: Status: Acute Plan A 71 years old lady with PMH of CHF, id a, asthma, PAF, showed ulcerative colitis, depression, post aortic and mitral valve replacement who presents to the hospital complaining of shortness of breath and increased lower extremity edema. Acute on chronic diastolic CHF exacerbation Elevated BNP and increased edema lower extremities Improving Does not seem to be extreme, dyspnea likely worse with physical deconditioning and decreased physical activity Continue IV diuresis with Lasix Follow intake and output has recent echo outpatient Leg cramps Doppler ultrasound negative for DVT To do physical therapy Hyperkalemia Resolved Follow BMP chronic iron defeciency anemia dc asa has EGD and colonoscopy scheduled for outpatient in 2 weeks PAF Continue metoprolol and warfarin inr goal 2-3 Post AVR, MVR appears to be bioprosthetic DVT PPX Warfarin reason for continued hospitalization:need for ongoing iv diuresis Quality Stroke Does the patient have a stroke diagnosis?: No VTE Prior VTE?: No VTE Risk Level:: Medical - moderate - high VTE Device Contraindication: Treatment Not Indicated VTE Drug Contraindication: N/A - Med Ordered
[2022-03-19] MEDS: traMADoL HCL 50 MG TABLET PO (14:49)
[2022-03-19 15:16] VITALS: BP 117/50; PULSE 69; RESP 16; TEMP 37.5; O2SAT 96
--- NOTE | 2022-03-19 15:42 | MHC.CM.PN ---
per rounds pt may be ready for dc thurs plan remains home no servceis
[2022-03-19] MEDS: Warfarin Sodium 2 MG TABLET 4 MG PO (17:49)
[2022-03-19 18:58] VITALS: BP 120/58; PULSE 68; RESP 16; TEMP 37.2; O2SAT 96
[2022-03-19] MEDS: LORazepam 1 MG TABLET PO (22:54)
[2022-03-19] MEDS: Doxepin HCl 25 MG CAPSULE PO (22:54)
[2022-03-20] VITALS: BP 119/59; PULSE 63; RESP 18; TEMP 36.3; O2SAT 91
[2022-03-20 04:00] VITALS: BP 140/76; PULSE 57; RESP 18; TEMP 36.1; O2SAT 98
[2022-03-20 06:49] LABS: Hematocrit 37.6 % (37.0-47.0); Hemoglobin 11.6 g/dl (12.0-16.0); Mean Corpuscular HGB Conc 30.9 g/dl (31.0-35.0); Mean Corpuscular Hemoglobin 23.8 pg (27.0-33.0); Mean Corpuscular Volume 77.2 fL (80.0-98.0); Mean Platelet Volume 9.2 fL (9.4-12.3); Platelet Count 216 X10*3/uL (160-400); Red Blood Count 4.87 X10*6/uL (4.20-5.50)
[2022-03-20 06:52] LABS: INTERNATIONAL NORM RATIO 2.7 (0.9-1.1); Prothrombin Time 32.9 SEC (10.0-13.1)
[2022-03-20 07:16] LABS: Anion Gap 12 (12-20); Blood Urea Nitrogen 19 mg/dL (9-16); Calcium 8.8 mg/dL (8.4-10.2); Carbon Dioxide 36 mmol/L (22-29); Chloride 84 mmol/L (96-108); Creatinine Clr Calc Pharmacy 54.2; Estimated Glomerular Filt Rate 58; Glucose Fasting 91 mg/dL (60-99); Magnesium 2.2 mg/dL (1.6-2.6); Potassium 4.3 mmol/L (3.3-5.1); Sodium 128 mmol/L (135-145)
[2022-03-20 07:41] VITALS: BP 145/68; PULSE 60; RESP 18; TEMP 36.4; O2SAT 98
[2022-03-20] MEDS: Fluticasone/Vilanterol 100/25 BLST.W.DEV 1 PUFF INHALE (07:42)
[2022-03-20 07:45] VITALS: PULSE 60; RESP 18; O2SAT 99
--- NOTE | 2022-03-20 10:25 | PM.DS ---
DS: Providers Provider Date of Service: 03/20/22 Date of admission: 03/17/22 18:29 Primary care physician: Negrita Bains MD DS: Diagnosis Discharge Diagnosis (1) CHF exacerbation: Status: Acute (2) Positive occult stool blood test: Status: Acute (3) Hyperkalemia: Status: Acute DS: Summary Hospital Course Hospital Course: from initial hpi: Chief Complaint: Dyspnea, LE edema A 71 years old lady with PMH of CHF, id a, asthma, PAF, showed ulcerative colitis, depression, post aortic and mitral valve replacement who presents to the hospital complaining of shortness of breath and increased lower extremity edema.? The patient reports that she has been feeling more short of breath and tired for the last few days.? Ten days ago she received blood transfusion for persistent anemia that she follow with Dr. Arriaga about believed to be secondary to chronic GI loss from being on warfarin but no bleeding noticed this time or even black stool by the patient.? Reported that she is having crease lower extremities pain and edema with dyspnea on exertion.? Denies any chest pain, palpitation, lightheadedness, nausea, vomiting, change in bowel habit or urinary symptoms.? She states that despite of increasing her Lasix dosage she did not notice much improvement and decided to come to the hospital for further evaluation as she started to have cramps in her legs.? In the emergency noted to have hyperkalemia, hyponatremia, elevated BNP with positive occult blood.? Admitted for further evaluation and treatment. hospital course: Patient was admitted for acute on chronic diastolic CHF. She was treated with IV Lasix and lower extremity edema and dyspnea improved. She was also treated for hyperkalemia with insulin and potassium improved. Patient has known chronic iron deficiency anemia and is scheduled to have EGD and colonoscopy as outpatient. For her paroxysmal atrial fibrillation she will continue on metoprolol and Coumadin. her aspirin has been discontinued. Patient is noted to be post AVR and MVR, these appear to be bioprosthetic. For her KAMI and morbid obesity, weight loss and CPAP compliance is recommended. patient is feeling better will be discharged home. Time Spent with Patient Time attestation: Total time spent providing and/or coordinating discharge services: Discharge coordination time: Greater than 30 minutes Quality: Safe Use of Opioids Does Pt have an Active Cancer Diagnosis on the Problem List?: No Quality: Stroke Does the patient have a stroke diagnosis?: No Physical Exam Vital Signs: Vital Signs: Last Vital Signs Temp 97.5 F 03/20/22 07:41 Pulse 60 03/20/22 07:45 Resp 18 03/20/22 07:45 BP 145/68 H 03/20/22 07:41 Pulse Ox 98 03/20/22 07:41 O2 Del Method 03/20/22 07:41 O2 Flow Rate 2 03/20/22 07:41 BMI result Body Mass Index 40.0 General: AO X 3, no acute distress Resp: CTA bilateral, no accessory muscles used CVS: S1,S2,RRR GI: soft, non tender, non distended Neuro: motor grossly intact, alert Psych: appropriate affect, appropriate insight DS: Data Data Completed and Pending Labs on day of discharge: Laboratory Results - last 24 hr 03/19/22 03/20/22 03/20/22 13:57 06:22 06:22 WBC 9.0 RBC 4.87 Hgb 11.6 L Hct 37.6 MCV 77.2 L MCH 23.8 L MCHC 30.9 L RDW 23.0 H Plt Count 216 MPV 9.2 L Absolute Nucleated RBC 0.000 Nucleated RBC % (auto) 0.0 PT 30.0 H 32.9 H INR 2.5 H 2.7 H Sodium Potassium Chloride Carbon Dioxide Anion Gap BUN Creatinine Estim Creat Clear Calc Estimated GFR Fasting Glucose Calcium Magnesium 03/20/22 06:22 WBC RBC Hgb Hct MCV MCH MCHC RDW Plt Count MPV Absolute Nucleated RBC Nucleated RBC % (auto) PT INR Sodium 128 L Potassium 4.3 Chloride 84 L Carbon Dioxide 36 H Anion Gap 12 BUN 19 H Creatinine 0.94 Estim Creat Clear Calc 54.2 Estimated GFR 58 Fasting Glucose 91 Calcium 8.8 Magnesium 2.2 Discharge Plan Discharge Anticipated Discharge Date/Time: 03/20/22 10:15 Patient Disposition: Home Health Service Discharge Diagnosis: chf Referrals: Negrita Bains MD [Primary Care Provider] - 1 Week Discharge Medications: Continued simvastatin [Zocor] 40 mg tablet 40 mg PO DAILY 90 Days Qty: 90 0RF Acidophilus 5 mg PO DAILY doxepin 25 mg capsule 1 cap PO BEDTIME lorazepam 1 mg tablet 1 mg PO BEDTIME PRN (Reason: Anxiety) ferrous sulfate [Feosol] 325 mg (65 mg iron) Tablet 325 mg PO BID Qty: 60 3RF warfarin [Jantoven] 2 mg tablet 4 mg PO DAILY metoprolol tartrate 50 mg tablet 1 tab PO BID lorazepam 1 mg tablet 0.5 mg PO DAILY PRN (Reason: Anxiety) escitalopram oxalate 5 mg tablet 1 tab PO DAILY solifenacin 10 mg tablet 1 tab PO DAILY dexlansoprazole 60 mg capsule,biphase delayed releas 1 cap PO DAILY albuterol sulfate 2.5 mg /3 mL (0.083 %) solution for nebulization 1 vial inhalation Q4H PRN (Reason: wheezing) vitamin B complex Tablet 1 tab PO DAILY magnesium 250 mg Tablet 250 mg PO DAILY ergocalciferol (vitamin D2) 1,250 mcg (50,000 unit) Capsule 1,250 mcg PO QWEEK Label Comments: thursday biotin 2,500 mcg Capsule 2,500 mcg PO DAILY fluticasone furoate-vilanterol [Breo Ellipta] 100-25 mcg/dose blister with device 1 ea inhalation DAILY 30 Days Qty: 60 0RF losartan [Cozaar] 25 mg tablet 25 mg PO DAILY metoprolol tartrate [Lopressor] 100 mg tablet 100 mg PO BID gabapentin [Neurontin] 100 mg capsule 200 mg PO TID furosemide [Lasix] 40 mg tablet 40 mg PO DAILY escitalopram oxalate [Lexapro] 20 mg tablet 20 mg PO DAILY potassium chloride [K-Tab] 10 mEq tablet extended release 10 meq PO DAILY Discontinued ciprofloxacin HCl [Cipro] 250 mg Tablet 250 mg PO BID Qty: 14 0RF aspirin 81 mg Tablet,Chewable 81 mg PO DAILY Discharge Orders: Discharge Order (Routine); Ordered 03/20/22 Ordered By: Rosales Nino Diet: Advance to usual diet Activity on Discharge: As tolerated Stand Alone Forms: Patient Portal Discharge page Care Plan Goals: work up iron defeciency Health Concerns: chf, shayla Plan of Treatment: follow up with gi, cardio Assessment: see above
[2022-03-20] MEDS: Tolterodine Tartrate LA 4 MG CAP.ER.24H PO (10:35)
[2022-03-20] MEDS: Magnesium Oxide 400 MG TABLET PO (10:35)
[2022-03-20] MEDS: Escitalopram Oxalate 5 MG TABLET PO (10:35)
[2022-03-20] MEDS: Escitalopram Oxalate 20 MG TABLET PO (10:35)
[2022-03-20] MEDS: Losartan Potassium 25 MG TABLET PO (10:35)
[2022-03-20] MEDS: Metoprolol Tartrate 100 MG TABLET PO (10:35)
[2022-03-20] MEDS: Multivitamin TABLET 1 TAB PO (10:35)
[2022-03-20] MEDS: 0.9 % Sodium Chloride Flush 3 ML SYRINGE IVFLUSH (10:36)
[2022-03-20] MEDS: Gabapentin 100 MG CAPSULE 200 MG PO (10:36)
[2022-03-20] MEDS: Atorvastatin Calcium 20 MG TABLET PO (10:36)
[2022-03-20] MEDS: Ferrous Sulfate 324 MG TABLET.DR PO (10:36)
--- NOTE | 2022-03-20 11:14 | MHC.CM.PN ---
Patient has been medically cleared for dc to home today, with services, A referral was made to [facility]IRAN[facility], who has been made aware of today's dc. IMM addressed with Patient at bedside and original has been given to her and a copy has been placed on the chart.
--- NOTE | 2022-03-20 11:18 | W.MHC.F2F ---
Service Date Service Date: 03/20/22 Encounter Date of encounter: 03/20/22 Reasons for Services Signs and symptoms assessed: weakness Reason for group home: medication management, medication treatment and teach disease management Homebound: Leaving the home is medically contraindicated at this time without the asist of a device and/or another person due th the listed conditions above and below. Reason homebound: unsteady gait / fall risk and leg weakness Certification: Based on the above findings, I certify that this patient is confined to the home and needs intermittent group home care, physical therapy and/or speech therapy, or continues to need occupational therapy. The patient is under my care, and I have initiated the establishment of the plan of care. The patient will be followed by a physician who will periodically review the plan of care.
== END 2022-03-20 12:57 | disposition home health service (06) | DRG 291 ==
LOC: HO.ED 17:50 → HO.EDOVER 18:43 → HO.IMC 03-18 13:59
PROVIDERS: Student in an Organized Health Care Education/Training Program; Admitting Provider Student in an Organized Health Care Education/Training Program; Emergency Provider Student in an Organized Health Care Education/Training Program; PCP Internal Medicine; Visit Provider Internal Medicine
DX: I11.0 Hypertensive heart disease with heart failure (principal); I50.33 Acute on chronic diastolic (congestive) heart failure; Z68.41 Body mass index [BMI] 40.0-44.9, adult; I48.0 Paroxysmal atrial fibrillation; R19.5 Other fecal abnormalities; T50.1X6A Underdosing of loop [high-ceiling] diuretics, initial encounter; E66.01 Morbid (severe) obesity due to excess calories; G47.33 Obstructive sleep apnea (adult) (pediatric); R25.2 Cramp and spasm; F43.10 Post-traumatic stress disorder, unspecified; Z20.822 Contact with and (suspected) exposure to COVID-19; Z95.2 Presence of prosthetic heart valve; Z79.01 Long term (current) use of anticoagulants; Z79.51 Long term (current) use of inhaled steroids; Z79.899 Other long term (current) drug therapy
CPT/HCPCS: 36415; 71045; 80048; 80076; 82272; 82306; 82607; 82746; 83735; 83880; 84484; 85025; 85027; 85610; 87635; 93005; 93970; 94640; 97162; 99285; J0610; J1940

== ENCOUNTER 2022-04-02 06:46 | Inpatient (IN) | payer MEDICARE, MEDICAID, SELFPAY ==
--- NOTE | ~2022-04-02 | CT_ITS ---
EXAMINATION: CT angio head neck CLINICAL INFORMATION: Question carotid dissection. COMPARISON: CT head 02/11/2020. TECHNIQUE: Highballer images were obtained. A CT angiogram of the head and neck was performed in the arterial phase after the intravenous administration of 70 mL Omnipaque 350. Pre and delayed postcontrast images of the head were also obtained. MIP reconstructions were generated in multiple orientations at the acquisition workstation. Multiple three-dimensional surface rendered images and maximum intensity projection images were generated on a dedicated 3-D lab workstation. Arterial stenoses are measured in accordance with NASCET criteria or similar method if applicable. This CT examination was performed using dose optimization techniques as appropriate, including one or more of the following: Automated exposure control, iterative reconstruction, and adjustment of technique factors (mA and/or kVp) according to patient size (this includes techniques or standardized protocols for targeted exams where dose is matched to indication/reason for exam). Fleischner Society criteria for the followup of incidental pulmonary nodules was implemented if appropriate. Total exam dose-length product 3300 mGy-cm FINDINGS: Head: Postcontrast images reveal no abnormal intracranial mass or enhancement. There is no intracranial mass effect or midline shift. Lateral and third ventricles are normal. No hydrocephalus. There is a small chronic cortical infarct involving the left cerebellar hemisphere and a few scattered nonspecific foci of hypoattenuation within the periventricular white matter that most likely represent a chronic manifestation of small vessel ischemia. There chronic changes of a left canal wall down mastoidectomy. The calvarium and skull base are otherwise intact. No active paranasal sinus disease. CT angiogram neck: Scattered atheromatous caliber indication involve the aortic arch apex. Origins of major aortic branches are widely patent. Common carotid arteries are patent. Small amount of partially calcified atheromatous plaque involves both carotid bifurcations. No stenosis of the extracranial internal carotid arteries. There is however a subtle beaded contour of both extracranial internal carotid arteries that indicates the possibility of underlying fibromuscular dysplasia, best depicted on axial image 449 of 1099 series 12. The cervical segments of the vertebral arteries as well as their origins are patent. CT angiogram head: There are multiple intracranial aneurysms. The dominant aneurysm is an anteriorly projecting aneurysm of the right internal carotid artery at the origin of the posterior communicating artery measuring 10 mm from base to apex best depicted on MIP image 100 of 203 series 17. There are also much smaller saccular aneurysms involving both middle cerebral artery bifurcations. For instance there is a small inferiorly projecting saccular aneurysm at the right middle cerebral artery bifurcation measuring approximately 1.2 mm from base apex. There is also a shallow anteriorly projecting aneurysm involving the left middle cerebral artery bifurcation best visualized on axial image 282 of the same series measuring approximately 1.1 mm from base apex. The A1 segment of the left anterior cerebral artery is absent or hypoplastic and there is a leftward projecting contour abnormality that may represent a small aneurysm of the anterior communicating artery or a vascular infundibulum measuring 1.2 mm from base apex. There is also junctional prominence and possible aneurysm at the tip of the basilar artery. Other: Soft tissues of the neck including the thyroid gland are normal. Visualized lung apices are clear. No acute osseous finding. Specific no worrisome lytic or blastic osseous lesion. Grossly no pathologically enlarged cervical lymph nodes. CT/CT angio head neck IMPRESSION: There is no stenosis of the cervical carotid or vertebral arteries. No intracranial large vessel occlusion. There are however multiple intracranial aneurysms, the largest which is an inferiorly projecting saccular aneurysm of the right internal carotid artery at the origin of the posterior communicating artery measuring 10 mm from base to apex. There are also smaller aneurysms involving both middle cerebral artery bifurcation, the anterior communicating artery, and basilar tip. Possible fibromuscular dysplasia of the extracranial internal carotid arteries. Grossly no evidence of acute territorial infarct or hemorrhage. No abnormal intracranial mass or enhancement. Small chronic left cerebellar infarct and scattered chronic small vessel ischemic changes within the periventricular white matter.
--- NOTE | ~2022-04-02 | CT_ITS ---
EXAMINATION: CT ABDOMEN AND PELVIS WITH CONTRAST CLINICAL INFORMATION: Post colonoscopy. Rectal bleeding. Rule out perforation. COMPARISON: Previous CT of the abdomen and pelvis October 2017 TECHNIQUE: Multidetector volumetric images were obtained from the superior aspect of the liver through the pubic symphysis following administration 70 mL of Omnipaque 350 intravenous contrast. Sagittal and coronal reformatted images were obtained on the technologist's workstation. Oral contrast: Yes This CT examination was performed using dose optimization techniques as appropriate, variously including the following: *Automated exposure control *Adjustment of mA and/or kV according to patient size (this includes techniques or standardized protocols for targeted exams where dose is matched to indication/reason for exam; i.e. extremities or head) *Use of iterative reconstruction technique DLP: 958 mGy-cm FINDINGS: LUNG BASES: Linear scarring or subsegmental atelectasis at the right lung base. There is a 5 mm right lower lobe nodule axial image 7 series 19. This may be increased from 3 mm on October 2017 exam. There is question of a 7 mm lingular nodule axial image 1 series 19. Prosthetic aortic heart valve. LIVER, GALLBLADDER, AND BILIARY TREE: The liver is normal in size, shape, and attenuation. There is a 1 cm low-attenuation lesion in the left lobe of the liver that is stable and probably represents a cyst. No other focal hepatic lesion or biliary ductal dilatation is present. The gallbladder is unremarkable with no evidence of radiopaque gallstones, gallbladder wall thickening, or obvious pericholecystic inflammatory changes. PANCREAS: Unremarkable. SPLEEN: Unremarkable. ADRENAL GLANDS: Unremarkable. KIDNEYS AND URETERS: The kidneys are normal in size, shape, and attenuation. No hydronephrosis, hydroureter, or calculi seen. No perinephric stranding. BLADDER: Unremarkable. GASTROINTESTINAL TRACT: There is diverticulosis of the colon. No evidence of diverticulitis or colitis. No wall thickening, ascites or free air. The appendix is unremarkable. ABDOMINAL WALL: Small umbilical hernia containing fat. LYMPH NODES: Normal. VASCULAR: Atherosclerotic disease. No aneurysm. PELVIC VISCERA: Uterus appears to have been removed. No pelvic mass. OSSEOUS STRUCTURES: Severe osteopenia. L1-L5 compression fractures and post vertebroplasty change. Severe T11 vertebral body compression fracture. These findings are unchanged from 2018. Moderate T9 vertebral body compression fracture that is new in the interval from 2018.. Median sternotomy wires. Degenerative changes at the hip joints. CT/CT abdomen pelvis w IV con IMPRESSION: Diverticulosis of the colon. No evidence of diverticulitis. No perforation. Multiple compression fractures as detailed above. Bilateral pulmonary nodules. Right lower lobe nodule may be increased from previous abdominal pelvic CT October 2017 and follow-up elective chest CT should be considered. Fleischner guidelines were followed.
[2022-04-02 06:49] VITALS: BP 173/69; BP 190/70; PULSE 58; PULSE 60; RESP 16; TEMP 36.7; O2SAT 93; O2SAT 94; BMI 40.0
--- NOTE | 2022-04-02 08:58 | ED.GENADULT ---
HPI - General Adult General Chief complaint: GI Bleed Stated complaint: rectal bleed Time Seen by Provider: 04/02/22 08:17 Source: patient Mode of arrival: ambulatory Limitations: no limitations History of Present Illness HPI narrative: [age]-year-old female history of severe chronic anemia, multiple transfusion, CHF, multiple polyps presents to ED for status post rectal bleeding after having colonoscopy and endoscopic yesterday at [facility]. Patient states this morning she woke up to her pull up being wet and when she went to the bathrrom it was full of blood. patient states than she was on the toilet with just rectal bleeding profusely. patient having rectal bleeding in her pullups presently in the ED. patient's son states they removed 2 polyps yesterday each about 15 cm. Patient states also right anterior large bruise she states occurred from the procedure. Patient states he did not have bruised before the procedure when she woke up from the seizure herself on the son noticed a bruise on the right side of neck. Patient denies any neck pain. Patient denies any shortness of breath, drooling, or chest pain shortness of breath. Patient denies any pleurisy. Patient does not want to be transferred back to [facility] Related Data Home Medications Medication Instructions Recorded Confirmed escitalopram oxalate 20 mg tablet 20 mg PO DAILY 10/30/21 03/26/22 (Lexapro) furosemide 40 mg tablet (Lasix) 40 mg PO DAILY 10/30/21 03/26/22 gabapentin 100 mg capsule 200 mg PO TID 10/30/21 03/26/22 (Neurontin) losartan 25 mg tablet (Cozaar) 25 mg PO DAILY 10/30/21 03/26/22 metoprolol tartrate 100 mg tablet 100 mg PO BID 10/30/21 03/26/22 (Lopressor) potassium chloride 10 mEq 10 meq PO DAILY 10/30/21 03/26/22 tablet,extended release (K-Tab) Acidophilus 5 mg PO DAILY 11/14/21 03/26/22 doxepin 25 mg capsule 1 cap PO BEDTIME 11/14/21 03/26/22 lorazepam 1 mg tablet 1 mg PO BEDTIME PRN Anxiety 11/14/21 03/26/22 albuterol sulfate 2.5 mg/3 mL 1 vial inhalation Q4H PRN wheezing 03/17/22 03/26/22 (0.083 %) solution for nebulization biotin 2,500 mcg capsule 2,500 mcg PO DAILY 03/17/22 03/26/22 dexlansoprazole 60 mg 1 cap PO DAILY 03/17/22 03/26/22 capsule,biphase delayed release ergocalciferol (vitamin D2) 1,250 1,250 mcg PO QWEEK 03/17/22 03/26/22 mcg (50,000 unit) capsule escitalopram oxalate 5 mg tablet 1 tab PO DAILY 03/17/22 03/26/22 lorazepam 1 mg tablet 0.5 mg PO DAILY PRN Anxiety 03/17/22 03/26/22 magnesium 250 mg tablet 250 mg PO DAILY 03/17/22 03/26/22 metoprolol tartrate 50 mg tablet 1 tab PO BID 03/17/22 03/26/22 solifenacin 10 mg tablet 1 tab PO DAILY 03/17/22 03/26/22 vitamin B complex 1 tab PO DAILY 03/17/22 03/26/22 warfarin 2 mg tablet (Jantoven) 4 mg PO DAILY 03/17/22 03/26/22 Previous Rx's Medication Instructions Recorded fluticasone furoate 100 1 ea inhalation DAILY 30 days #60 11/27/21 mcg-vilanterol 25 mcg/dose ea inhalation powder (Breo Ellipta) simvastatin 40 mg tablet (Zocor) 40 mg PO DAILY 90 days #90 tabs 01/09/22 ferrous sulfate 325 mg (65 mg 325 mg PO BID #60 tabs 03/10/22 iron) tablet (Feosol) Allergies Allergy/AdvReac Type Severity Reaction Status Date / Time adhesive [ADHESIVE] Allergy Unknown LOCAL Verified 03/26/22 11:32 REACTION Review of Systems Review of Systems: painlessl rectal bleeding. [facility] Past Medical History Medical History Age related osteoporosis Anemia Anemia Anticoagulant long-term use Asthma, moderate persistent Chronic GERD Diastolic congestive heart failure Establishing care with new doctor, encounter for Generalized anxiety disorder with panic attacks History of ulcerative colitis Hypertension, essential Insomnia Interstitial cystitis Iron deficiency anemia Lipid disorder Major depression, recurrent Osteoarthritis, hip, bilateral Paroxysmal atrial fibrillation Post cardiotomy syndrome PTSD (post-traumatic stress disorder) Right carpal tunnel syndrome Urinary incontinence Wheezing Surgical History History of artificial heart valve History of kyphoplasty Status post aortic valve replacement Status post mitral valve replacement Family History Family History Daughter Mental health disorder Substance use disorder Father Emphysema lung Mother Heart disease Stroke Pacemaker Arthritis Family/Other Colon cancer Sister Crohn's disease Social History Social History Household Members: Children Housing: Apartment Are you a primary nursing care partner to a significant other at home: No Do you presently have visiting nurse or other home services: No Alcohol intake: never Patient Tobacco Use Status: Never used Tobacco Smoked in Last 30 Days: No e-Cigarette/Vaping Use: Never Used Use of substances other than those prescribed or required for medical reasons: No Substance Use Type: Marijuana Advance Directives: Yes Advance Directives on File: Yes Advance Directives Date on File: 03/17/22 service: No Current occupational status: retired Cognitive needs: No Hearing needs: No Vision needs: Yes Physical Exam ED Vital Signs: Vital Signs - 24 hr 04/02/22 06:49 04/02/22 09:20 04/02/22 11:53 Temperature 98.0 F 97.0 F Pulse Rate 60 65 71 Respiratory Rate 16 15 10 L Blood Pressure 173/69 H 178/60 H 178/76 H Pulse Oximetry 93 96 94 Oxygen Delivery Method Room Air Room Air Room Air 04/02/22 13:44 04/02/22 16:31 Temperature 96.8 F 98.2 F Pulse Rate 71 69 Respiratory Rate 18 17 Blood Pressure 187/85 H 195/71 H Pulse Oximetry 94 94 Oxygen Delivery Method Room Air Room Air BMI result Body Mass Index 40.0 Const General: cooperative, healthy appearing, comfortable, no acute distress, well developed, alert, awake and Physically active Orientation/consciousness: oriented to time and patient oriented x3 HENMT Head: Yes normal to inspection, Yes No palpable skull fracture present, Yes normocephalic, Yes atraumatic and No abrasion Head images: 1. Ecchymosis and tender on palpation Eyes General: appearance normal, both eyes and all related structures Neck Neck: Yes normal visual inspection, Yes full ROM, Yes no lymphadenopathy, Yes no meningeal signs, Yes trachea midline, Yes supple, No anterior neck swelling and No tender Chest Chest palpation & inspection: normal inspection of the chest and normal palpation of entire chest wall Resp Effort & Inspection: normal respiratory effort and able to speak in complete sentences Auscultation: clear to auscultation bilaterally Cardio Jugular venous distension: no JVD Heart sounds: S1 normal heart sound present and S2 normal heart sound present GI Other: REctal exam positive for dark red blood. Negative for black stool or melena. Negative for profuse hemorrhaging from rectum Inspection: Yes normal to inspection and No abdominal wall ecchymosis Palpation (GI): Soft to palpation, not firm, Tenderness to palpation present (GI) in the LLQ and in the RLQ, no guarding and not rigid General: No CVA tenderness and Yes no CVA tenderness Back/Spine/Pelvis Back: no CVA tenderness, No CVA tenderness and No back tenderness Skin General skin exam: no rashes or lesions noted and elasticity normal Neuro General: oriented to time, patient oriented x3, gait normal, no meningeal signs and CN's II-XI intact bilaterally Cranial nerves: Yes CN's II-XII intact bilaterally Extrem General: Yes normal to inspection and Yes full ROM Psych Appearance: grossly normal, well kempt and not disheveled Course Course Course Narrative: 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 Labs ordered. Fluids and Protonix ordered. Type and screen ordered. Likely patient may need imaging of abdomen probably neck also. Reevaluation(s) Reevaluation #1: UA shows UTI. Patient going for CT angio of the neck for head trauma to rule out any carotid dissection also be sent for abdominal CT scan. Plan is to call Gastroenterology after results. Patient vital signs so far stable Time: 10:54 Reevaluation #2: I spoke with Dr. Cortez of [facility] who performed the endoscopy and colonscpy yersterday. He was informed the patient's history, physical exam, and diagnostics. States 2 polyps 15 cm removed from the cecum and ascending colon. He states patient could be observed and admitted at [facility]. Patient refused to be transferred back to [facility] and he was made aware this. Case discussed with Dr. Cunningham of [facility] he recommends patient be admitted overnight and received bowel prep in case he has to take patient back to the operating room for colonoscopy. Patient repeat CBC improved. And CTA negative for signs of trauma to the neck. Shows Intracranial anuerysms that are stable and can be followed as outpatient. Patient denies any headache or visual changes. Aneurysms seems chronic. CT scan of abdomen negative for any perforation or bleeding Time: 16:48 Medications Administered Discontinued Medications Generic Name Dose Route Start Last Admin Trade Name Freq PRN Reason Stop Dose Admin Sodium Chloride 1,000 mls @ 999 mls/hr 04/02/22 08:22 04/02/22 10:31 Ns IV 04/02/22 09:22 Infused .Q1H1M STA Infusion Iohexol 100 ml 04/02/22 12:03 04/02/22 12:04 Iohexol 350 Mg/Ml 100 Ml Infus..Btl IV 04/02/22 12:04 70 ml ONCE ONE Administration Lorazepam 1 mg 04/02/22 12:14 04/02/22 12:33 Lorazepam 1 Mg Tablet PO 04/02/22 12:15 1 mg ONCE ONE Administration Pantoprazole Sodium 80 mg 04/02/22 08:42 04/02/22 09:08 Pantoprazole Sodium 40 Mg/10 Ml Vial IVPUSH 04/02/22 08:43 80 mg ONCE ONE Administration Medical Decision Making MDM Narrative Medical decision making narrative: Rectal bleeding after colonoscopy. Rule out GI bleed Lab Data Result diagrams: 04/02/22 15:31 04/02/22 09:00 Labs: Lab Results 04/02/22 04/02/22 04/02/22 Range/Units 09:00 09:00 09:00 WBC 6.2 (4.8-10.8) X10*3/uL RBC 3.95 L (4.20-5.50) X10*6/uL Hgb 9.8 L (12.0-16.0) g/dl Hct 31.5 L (37.0-47.0) % MCV 79.7 L (80.0-98.0) fL MCH 24.8 L (27.0-33.0) pg MCHC 31.1 (31.0-35.0) g/dl RDW 23.0 H (11.0-16.0) % Plt Count 260 (160-400) X10*3/uL MPV 9.0 L (9.4-12.3) fL Immature Gran % (Auto) 0.3 (0.0-0.4) % Neut % (Auto) 73.9 H (45-73) % Lymph % (Auto) 15.1 L (20-40) % [place] % (Auto) 6.7 (2-11) % Eos % (Auto) 3.4 (0-4) % Baso % (Auto) 0.6 (0-2) % Lymph # (Auto) 0.9 L (1.2-4.9) X10*3/uL [place] # (Auto) 0.4 (0.1-1.2) X10*3/uL Eos # (Auto) 0.2 (0.0-0.4) X10*3/uL Baso # (Auto) 0.0 (0.0-0.2) X10*3/uL Abs Immat Gran (auto) 0.02 (0.00-0.03) X10*3/uL Absolute Neuts (auto) 4.6 (2.0-8.3) x10*3/uL Absolute Nucleated RBC 0.000 (0.0-0.012) X10*3/uL Nucleated RBC % (auto) 0.0 (0.0-0.2) /100WBC PT 12.6 (10.0-13.1) SEC INR 1.1 (0.9-1.1) APTT 31.5 (26.0-36.4) SEC Sodium 135 (135-145) mmol/L Potassium 5.1 (3.3-5.1) mmol/L Chloride 100 (96-108) mmol/L Carbon Dioxide 23 (22-29) mmol/L Anion Gap 17 (12-20) BUN 11 (9-16) mg/dL Creatinine 0.77 (0.5-1.4) mg/dL Estim Creat Clear Calc 66.2 Estimated GFR > 60 Random Glucose 82 (60-115) mg/dL Calcium 8.9 (8.4-10.2) mg/dL Total Bilirubin 0.4 (0.0-1.0) mg/dL AST 34 H D (5-31) U/L ALT 17 (0-31) U/L Alkaline Phosphatase 59 (39-117) U/L B-Natriuretic Peptide (<100) pg/mL Total Protein 5.7 L (6.5-8.0) g/dL Albumin 3.4 L (3.5-5.0) g/dL Urine Color Urine Appearance Urine pH (5.0-9.0) Ur Specific [place] (1.005-1.025) Urine Protein (Neg-Trace) mg/dL Urine Glucose (UA) (Negative) mg/dL Urine Ketones (Negative) mg/dL Urine Blood (Negative) Urine Nitrite (Negative) Ur Leukocyte Esterase (Negative) Urine RBC (0-2) /HPF Urine WBC (0-5) /HPF Ur Squamous Epith Cells (0-2) /HPF Urine Bacteria (None Seen) Hyaline Casts (0-2) /LPF Stool Occult Blood (NEGATIVE) COVID-19 ([facility]) (Negative) COVID-19 Clin Com Blood Type Antibody Screen 04/02/22 04/02/22 04/02/22 Range/Units 09:00 09:00 09:17 WBC (4.8-10.8) X10*3/uL RBC (4.20-5.50) X10*6/uL Hgb (12.0-16.0) g/dl Hct (37.0-47.0) % MCV (80.0-98.0) fL MCH (27.0-33.0) pg MCHC (31.0-35.0) g/dl RDW (11.0-16.0) % Plt Count (160-400) X10*3/uL MPV (9.4-12.3) fL Immature Gran % (Auto) (0.0-0.4) % Neut % (Auto) (45-73) % Lymph % (Auto) (20-40) % [place] % (Auto) (2-11) % Eos % (Auto) (0-4) % Baso % (Auto) (0-2) % Lymph # (Auto) (1.2-4.9) X10*3/uL [place] # (Auto) (0.1-1.2) X10*3/uL Eos # (Auto) (0.0-0.4) X10*3/uL Baso # (Auto) (0.0-0.2) X10*3/uL Abs Immat Gran (auto) (0.00-0.03) X10*3/uL Absolute Neuts (auto) (2.0-8.3) x10*3/uL Absolute Nucleated RBC (0.0-0.012) X10*3/uL Nucleated RBC % (auto) (0.0-0.2) /100WBC PT (10.0-13.1) SEC INR (0.9-1.1) APTT (26.0-36.4) SEC Sodium (135-145) mmol/L Potassium (3.3-5.1) mmol/L Chloride (96-108) mmol/L Carbon Dioxide (22-29) mmol/L Anion Gap (12-20) BUN (9-16) mg/dL Creatinine (0.5-1.4) mg/dL Estim Creat Clear Calc Estimated GFR Random Glucose (60-115) mg/dL Calcium (8.4-10.2) mg/dL Total Bilirubin (0.0-1.0) mg/dL AST (5-31) U/L ALT (0-31) U/L Alkaline Phosphatase (39-117) U/L B-Natriuretic Peptide 508 H (<100) pg/mL Total Protein (6.5-8.0) g/dL Albumin (3.5-5.0) g/dL Urine Color Urine Appearance Urine pH (5.0-9.0) Ur Specific [place] (1.005-1.025) Urine Protein (Neg-Trace) mg/dL Urine Glucose (UA) (Negative) mg/dL Urine Ketones (Negative) mg/dL Urine Blood (Negative) Urine Nitrite (Negative) Ur Leukocyte Esterase (Negative) Urine RBC (0-2) /HPF Urine WBC (0-5) /HPF Ur Squamous Epith Cells (0-2) /HPF Urine Bacteria (None Seen) Hyaline Casts (0-2) /LPF Stool Occult Blood POSITIVE (NEGATIVE) COVID-19 ([facility]) (Negative) COVID-19 Clin Com Blood Type O Positive Antibody Screen NEGATIVE 04/02/22 04/02/22 04/02/22 Range/Units 09:29 15:31 16:13 WBC 6.1 (4.8-10.8) X10*3/uL RBC 3.94 L (4.20-5.50) X10*6/uL Hgb 10.0 L (12.0-16.0) g/dl Hct 31.6 L (37.0-47.0) % MCV 80.2 (80.0-98.0) fL MCH 25.4 L (27.0-33.0) pg MCHC 31.6 (31.0-35.0) g/dl RDW 23.4 H (11.0-16.0) % Plt Count 249 (160-400) X10*3/uL MPV 9.7 (9.4-12.3) fL Immature Gran % (Auto) 0.3 (0.0-0.4) % Neut % (Auto) 74.4 H (45-73) % Lymph % (Auto) 14.9 L (20-40) % [place] % (Auto) 6.6 (2-11) % Eos % (Auto) 3.0 (0-4) % Baso % (Auto) 0.8 (0-2) % Lymph # (Auto) 0.9 L (1.2-4.9) X10*3/uL [place] # (Auto) 0.4 (0.1-1.2) X10*3/uL Eos # (Auto) 0.2 (0.0-0.4) X10*3/uL Baso # (Auto) 0.1 (0.0-0.2) X10*3/uL Abs Immat Gran (auto) 0.02 (0.00-0.03) X10*3/uL Absolute Neuts (auto) 4.5 (2.0-8.3) x10*3/uL Absolute Nucleated RBC 0.000 (0.0-0.012) X10*3/uL Nucleated RBC % (auto) 0.0 (0.0-0.2) /100WBC PT (10.0-13.1) SEC INR (0.9-1.1) APTT (26.0-36.4) SEC Sodium (135-145) mmol/L Potassium (3.3-5.1) mmol/L Chloride (96-108) mmol/L Carbon Dioxide (22-29) mmol/L Anion Gap (12-20) BUN (9-16) mg/dL Creatinine (0.5-1.4) mg/dL Estim Creat Clear Calc Estimated GFR Random Glucose (60-115) mg/dL Calcium (8.4-10.2) mg/dL Total Bilirubin (0.0-1.0) mg/dL AST (5-31) U/L ALT (0-31) U/L Alkaline Phosphatase (39-117) U/L B-Natriuretic Peptide (<100) pg/mL Total Protein (6.5-8.0) g/dL Albumin (3.5-5.0) g/dL Urine Color Dark Yellow Urine Appearance Clear Urine pH 7.5 (5.0-9.0) Ur Specific [place] <= 1.005 (1.005-1.025) Urine Protein Negative (Neg-Trace) mg/dL Urine Glucose (UA) Negative (Negative) mg/dL Urine Ketones Negative (Negative) mg/dL Urine Blood Small (1+) H (Negative) Urine Nitrite Positive H (Negative) Ur Leukocyte Esterase Trace H (Negative) Urine RBC 0-2 (0-2) /HPF Urine WBC 0-5 (0-5) /HPF Ur Squamous Epith Cells 0-2 (0-2) /HPF Urine Bacteria None Seen (None Seen) Hyaline Casts 0-2 (0-2) /LPF Stool Occult Blood (NEGATIVE) COVID-19 ([facility]) Negative (Negative) COVID-19 Clin Com See Note Blood Type Antibody Screen Discharge Plan Discharge Clinical Impression: Rectal bleeding Patient Disposition: Admitted As Inpatient
[2022-04-02] MEDS: 0.9 % Sodium Chloride 1,000 ML 999 ML IV (09:01)
[2022-04-02 09:04] LABS: MANUAL DIFF FLAG NO
[2022-04-02 09:07] LABS: Basophils Percent Auto 0.6 % (0-2); Eosinophils Absolute Auto 0.2 X10*3/uL (0.0-0.4); Eosinophils Percent Auto 3.4 % (0-4); Hematocrit 31.5 % (37.0-47.0); Hemoglobin 9.8 g/dl (12.0-16.0); Imm Gran Abs Auto 0.02 X10*3/uL (0.00-0.03); Imm Gran Pct Auto 0.3 % (0.0-0.4); Lymphocytes Absolute Auto 0.9 X10*3/uL (1.2-4.9); Lymphocytes Percent Auto 15.1 % (20-40); Mean Corpuscular HGB Conc 31.1 g/dl (31.0-35.0); Mean Corpuscular Hemoglobin 24.8 pg (27.0-33.0); Mean Corpuscular Volume 79.7 fL (80.0-98.0); Monocytes Absolute Auto 0.4 X10*3/uL (0.1-1.2); Monocytes Percent Auto 6.7 % (2-11); Neutrophils Absolute Auto 4.6 x10*3/uL (2.0-8.3); Neutrophils Percent Auto 73.9 % (45-73); Platelet Count 260 X10*3/uL (160-400); Red Blood Count 3.95 X10*6/uL (4.20-5.50); White Blood Count 6.2 X10*3/uL (4.8-10.8)
[2022-04-02] MEDS: Pantoprazole Sodium 40 MG/10 ML VIAL 80 MG IVPUSH (09:08)
[2022-04-02 09:16] LABS: INTERNATIONAL NORM RATIO 1.1 (0.9-1.1); Prothrombin Time 12.6 SEC (10.0-13.1)
[2022-04-02 09:19] LABS: Partial Thromboplastin Time 31.5 SEC (26.0-36.4)
[2022-04-02 09:20] VITALS: BP 178/60; PULSE 65; RESP 15; O2SAT 96
[2022-04-02 09:27] LABS: Alanine Aminotransferase 17 U/L (0-31); Albumin Level 3.4 g/dL (3.5-5.0); Alkaline Phosphatase 59 U/L (39-117); Anion Gap 17 (12-20); Aspartate Amino Transferase 34 U/L (5-31); Bilirubin Total 0.4 mg/dL (0.0-1.0); Blood Urea Nitrogen 11 mg/dL (9-16); Calcium 8.9 mg/dL (8.4-10.2); Carbon Dioxide 23 mmol/L (22-29); Chloride 100 mmol/L (96-108); Creatinine Clr Calc Pharmacy 66.2; Estimated Glomerular Filt Rate > 60; Glucose Random 82 mg/dL (60-115); Potassium 5.1 mmol/L (3.3-5.1); Sodium 135 mmol/L (135-145); Total Protein 5.7 g/dL (6.5-8.0)
[2022-04-02 09:30] LABS: OBS Int Ctl Valid YES; OBS1 POSITIVE (NEGATIVE)
[2022-04-02 09:44] LABS: B Type Natriuretic Peptide 508 pg/mL (<100)
[2022-04-02 09:45] LABS: Appearance Urine Clear; Color Urine Dark Yellow; Glucose Urine UA Negative (Negative); Leukocyte Esterase Urine Trace (Negative); Nitrite Urine Positive (Negative); PH 7.5 (5.0-9.0); Specific Gravity - Urine <= 1.005 (1.005-1.025); UMIC TRIGGER UACC YES; Urine Blood Small (1+) (Negative); Urine Ketones Negative (Negative); Urine Protein Negative (Neg-Trace)
[2022-04-02 09:56] LABS: Bacteria Urine None Seen (None Seen); Hyaline Casts Urine 0-2 /LPF (0-2); RBC Urine 0-2 /HPF (0-2); Squamous Epithelial Cell Urine 0-2 /HPF (0-2); UACC Culture Trigger YES; WBC Urine 0-5 /HPF (0-5)
[2022-04-02 11:53] VITALS: BP 178/76; PULSE 71; RESP 10; TEMP 36.1; O2SAT 94
[2022-04-02] MEDS: iohexoL 350 MG/ML 100 ML INFUS..BTL IV (12:04)
[2022-04-02] MEDS: LORazepam 1 MG TABLET PO (12:33)
[2022-04-02 13:44] VITALS: BP 187/85; PULSE 71; RESP 18; TEMP 36; O2SAT 94
[2022-04-02 15:38] LABS: MANUAL DIFF FLAG NO
[2022-04-02 15:39] LABS: Basophils Absolute Auto 0.1 X10*3/uL (0.0-0.2); Basophils Percent Auto 0.8 % (0-2); Eosinophils Absolute Auto 0.2 X10*3/uL (0.0-0.4); Hematocrit 31.6 % (37.0-47.0); Imm Gran Abs Auto 0.02 X10*3/uL (0.00-0.03); Imm Gran Pct Auto 0.3 % (0.0-0.4); Lymphocytes Absolute Auto 0.9 X10*3/uL (1.2-4.9); Lymphocytes Percent Auto 14.9 % (20-40); Mean Corpuscular HGB Conc 31.6 g/dl (31.0-35.0); Mean Corpuscular Hemoglobin 25.4 pg (27.0-33.0); Mean Corpuscular Volume 80.2 fL (80.0-98.0); Mean Platelet Volume 9.7 fL (9.4-12.3); Monocytes Absolute Auto 0.4 X10*3/uL (0.1-1.2); Monocytes Percent Auto 6.6 % (2-11); Neutrophils Absolute Auto 4.5 x10*3/uL (2.0-8.3); Neutrophils Percent Auto 74.4 % (45-73); Platelet Count 249 X10*3/uL (160-400); Red Blood Count 3.94 X10*6/uL (4.20-5.50); Red Cell Distribution Width 23.4 % (11.0-16.0); White Blood Count 6.1 X10*3/uL (4.8-10.8)
[2022-04-02 16:31] VITALS: BP 195/71; PULSE 69; RESP 17; TEMP 36.8; O2SAT 94
[2022-04-02 16:35] LABS: COVID-19 Test Negative (Negative)
--- NOTE | 2022-04-02 17:07 | PM.EVENT ---
Event Note Date of Service: 04/02/22 Event Note: GI consult dictated Presentation is c/w post polypectomy bleeding. Rec: Keep npo golytely tonight in case colonoscopy needed (should bleeding continue) follow hct Discussed with patient and son
--- NOTE | 2022-04-02 17:22 | P.HPHOSP_ITS ---
History of Present Illness Date of Service: 04/02/22 Chief Complaint: brbpr 71 years old lady with PMH of diastolic CHF, shayla, asthma, PAF, ulcerative colitis, depression, bioprosthetic aortic and mitral valve replacement?presented with BRBPR. patient underwent elective EGD/colonoscopy as outpatient on day prior to presentation for work up for iron defeciency anemia. EGD was reported to be unremarkable. colonoscopy showed multiple polyps which were snared. no obvious source of bleed. patient's warfarin was held and she was receiving therapeutic lovenox. early AM next day (day of presentation) patient passed s everal clots in stool followed by large volumed bright red blood. came to ED, in ED had no further bleeding, hgb stable. she was reporting ongoing dysuria without fever or chills, ua with nitrite. Review of Systems Review of Systems: Constitutional: Denies fever, denies Chills Eyes: denies blurry vision ENT: denies sore throat CVS: denies chest pain Respiratory: Denies dyspnea GI: no abdominal pain : denies dysuria MSK: denies neck pain Skin: denies rash Neuro: denies specific motor weakness Psych: denies suicidal ideation Endocrine: denies heat/cold intolerance Hematologic: easy bruising Allergy: denies hives [facility] Medical History Age related osteoporosis Anemia Anemia Anticoagulant long-term use Asthma, moderate persistent Chronic GERD Diastolic congestive heart failure Establishing care with new doctor, encounter for Generalized anxiety disorder with panic attacks History of ulcerative colitis Hypertension, essential Insomnia Interstitial cystitis Iron deficiency anemia Lipid disorder Major depression, recurrent Osteoarthritis, hip, bilateral Paroxysmal atrial fibrillation Post cardiotomy syndrome PTSD (post-traumatic stress disorder) Right carpal tunnel syndrome Urinary incontinence Wheezing Family History Daughter Mental health disorder Substance use disorder Father Emphysema lung Mother Heart disease Stroke Pacemaker Arthritis Family/Other Colon cancer Sister Crohn's disease Surgical History History of artificial heart valve History of kyphoplasty Status post aortic valve replacement Status post mitral valve replacement Social History Household Members: Children Housing: Apartment Are you a primary menagerie caretaker to a significant other at home: No Do you presently have visiting nurse or other home services: No Alcohol intake: never Patient Tobacco Use Status: Never used Tobacco Smoked in Last 30 Days: No e-Cigarette/Vaping Use: Never Used Use of substances other than those prescribed or required for medical reasons: No Substance Use Type: Marijuana Advance Directives: Yes Advance Directives on File: Yes Advance Directives Date on File: 03/17/22 service: No Current occupational status: retired Cognitive needs: No Hearing needs: No Vision needs: Yes Meds Allergies Allergy/AdvReac Type Severity Reaction Status Date / Time adhesive [ADHESIVE] Allergy Unknown LOCAL Verified 03/26/22 11:32 REACTION Active Medications: Current Medications Ceftriaxone Sodium 1 gm/ (Sodium Chloride) 50 mls @ 100 mls/hr IV Q24H [facility] Pharmacy Consult (Consult Rx Perform Med Rec) 1 each MISCELLANE ONCE PRN PRN Reason: Consult order Sodium Chloride (0.9 % Sodium Chloride Flush 3 Ml Syringe) 3 ml IVFLUSH QSHIFT [facility] Home Medications Medication Instructions Recorded Confirmed Last Taken Type escitalopram oxalate 20 mg tablet 20 mg PO DAILY 10/30/21 03/26/22 Unknown History (Lexapro) furosemide 40 mg tablet (Lasix) 40 mg PO DAILY 10/30/21 03/26/22 Unknown History gabapentin 100 mg capsule 200 mg PO TID 10/30/21 03/26/22 Unknown History (Neurontin) losartan 25 mg tablet (Cozaar) 25 mg PO DAILY 10/30/21 03/26/22 Unknown History metoprolol tartrate 100 mg tablet 100 mg PO BID 10/30/21 03/26/22 Unknown History (Lopressor) potassium chloride 10 mEq 10 meq PO DAILY 10/30/21 03/26/22 Unknown History tablet,extended release (K-Tab) Acidophilus 5 mg PO DAILY 11/14/21 03/26/22 Unknown History doxepin 25 mg capsule 1 cap PO BEDTIME 11/14/21 03/26/22 Unknown History lorazepam 1 mg tablet 1 mg PO BEDTIME PRN Anxiety 11/14/21 03/26/22 Unknown History albuterol sulfate 2.5 mg/3 mL 1 vial inhalation Q4H PRN wheezing 03/17/22 03/26/22 Unknown History (0.083 %) solution for nebulization biotin 2,500 mcg capsule 2,500 mcg PO DAILY 03/17/22 03/26/22 Unknown History dexlansoprazole 60 mg 1 cap PO DAILY 03/17/22 03/26/22 Unknown History capsule,biphase delayed release ergocalciferol (vitamin D2) 1,250 1,250 mcg PO QWEEK 03/17/22 03/26/22 Unknown History mcg (50,000 unit) capsule escitalopram oxalate 5 mg tablet 1 tab PO DAILY 03/17/22 03/26/22 Unknown History lorazepam 1 mg tablet 0.5 mg PO DAILY PRN Anxiety 03/17/22 03/26/22 Unknown Hi story magnesium 250 mg tablet 250 mg PO DAILY 03/17/22 03/26/22 Unknown History metoprolol tartrate 50 mg tablet 1 tab PO BID 03/17/22 03/26/22 Unknown History solifenacin 10 mg tablet 1 tab PO DAILY 03/17/22 03/26/22 Unknown History vitamin B complex 1 tab PO DAILY 03/17/22 03/26/22 Unknown History warfarin 2 mg tablet (Jantoven) 4 mg PO DAILY 03/17/22 03/26/22 Unknown History Physical Exam Vital Signs and Narrative: Vital Signs: Last Vital Signs Temp 98.2 F 04/02/22 16:31 Pulse 69 04/02/22 16:31 Resp 17 04/02/22 16:31 BP 195/71 H 04/02/22 16:31 Pulse Ox 94 04/02/22 16:31 O2 Del Method 04/02/22 16:31 BMI result Body Mass Index 40.0 General: no acute distress HEENT: atraumatic, bruising over right side of neck Neck: normal to visual inspection CVS: S1, S2, RRR Resp: CTA bilateral Chest: non tender GI: soft, non tender, non distended : no CVA tenderness Skin: no rashes Extremities: edema Neuro: Oriented X3, grossly intact Psych: cooperative Results Labs CBC and Chem 7: 04/02/22 15:31 04/02/22 09:00 Labs: Laboratory Results - last 24 hr 04/02/22 04/02/22 04/02/22 09:00 09:00 09:00 MCV 79.7 L MCH 24.8 L MCHC 31.1 RDW 23.0 H Plt Count 260 MPV 9.0 L Immature Gran % (Auto) 0.3 Neut % (Auto) 73.9 H Lymph % (Auto) 15.1 L [place] % (Auto) 6.7 Eos % (Auto) 3.4 Baso % (Auto) 0.6 Lymph # (Auto) 0.9 L [place] # (Auto) 0.4 Eos # (Auto) 0.2 Baso # (Auto) 0.0 Abs Immat Gran (auto) 0.02 Absolute Neuts (auto) 4.6 Absolute Nucleated RBC 0.000 Nucleated RBC % (auto) 0.0 PT 12.6 INR 1.1 APTT 31.5 Anion Gap 17 Estim Creat Clear Calc 66.2 Estimated GFR > 60 Random Glucose 82 Calcium 8.9 Total Bilirubin 0.4 AST 34 H D ALT 17 Alkaline Phosphatase 59 B-Natriuretic Peptide Total Protein 5.7 L Albumin 3.4 L Urine Color Urine Appearance Urine pH Ur Specific Nathalie Urine Protein Urine Glucose (UA) Urine Ketones Urine Blood Urine Nitrite Ur Leukocyte Esterase Urine RBC Urine WBC Ur Squamous Epith Cells Urine Bacteria Hyaline Casts Stool Occult Blood COVID-19 (HAZEL) COVID-19 [employer] Com Blood Type Antibody Screen 04/02/22 04/02/22 04/02/22 09:00 09:00 09:17 MCV MCH MCHC RDW Plt Count MPV Immature Gran % (Auto) Neut % (Auto) Lymph % (Auto) [place] % (Auto) Eos % (Auto) Baso % (Auto) Lymph # (Auto) [place] # (Auto) Eos # (Auto) Baso # (Auto) Abs Immat Gran (auto) Absolute Neuts (auto) Absolute Nucleated RBC Nucleated RBC % (auto) PT INR APTT Anion Gap Estim Creat Clear Calc Estimated GFR Random Glucose Calcium Total Bilirubin AST ALT Alkaline Phosphatase B-Natriuretic Peptide 508 H Total Protein Albumin Urine Color Urine Appearance Urine pH Ur Specific Nathalie Urine Protein Urine Glucose (UA) Urine Ketones Urine Blood Urine Nitrite Ur Leukocyte Esterase Urine RBC Urine WBC Ur Squamous Epith Cells Urine Bacteria Hyaline Casts Stool Occult Blood POSITIVE COVID-19 (HAZEL) COVID-19 [employer] Com Blood Type O Positive Antibody Screen NEGATIVE 04/02/22 04/02/22 04/02/22 09:29 15:31 16:13 MCV 80.2 MCH 25.4 L MCHC 31.6 RDW 23.4 H Plt Count 249 MPV 9.7 Immature Gran % (Auto) 0.3 Neut % (Auto) 74.4 H Lymph % (Auto) 14.9 L [place] % (Auto) 6.6 Eos % (Auto) 3.0 Baso % (Auto) 0.8 Lymph # (Auto) 0.9 L [place] # (Auto) 0.4 Eos # (Auto) 0.2 Baso # (Auto) 0.1 Abs Immat Gran (auto) 0.02 Absolute Neuts (auto) 4.5 Absolute Nucleated RBC 0.000 Nucleated RBC % (auto) 0.0 PT INR APTT Anion Gap Estim Creat Clear Calc Estimated GFR Random Glucose Calcium Total Bilirubin AST ALT Alkaline Phosphatase B-Natriuretic Peptide Total Protein Albumin Urine Color Dark Yellow Urine Appearance Clear Urine pH 7.5 Ur Specific Nathalie <= 1.005 Urine Protein Negative Urine Glucose (UA) Negative Urine Ketones Negative Urine Blood Small (1+) H Urine Nitrite Positive H Ur Leukocyte Esterase Trace H Urine RBC 0-2 Urine WBC 0-5 Ur Squamous Epith Cells 0-2 Urine Bacteria None Seen Hyaline Casts 0-2 Stool Occult Blood COVID-19 (HAZEL) Negative COVID-19 Clin Com See Note Blood Type Antibody Screen Imaging Radiologist's Impressions: Impressions Abdomen/Pelvis CT 04/02/22 12:01 IMPRESSION: Diverticulosis of the colon. No evidence of diverticulitis. No perforation. Multiple compression fractures as detailed above. Bilateral pulmonary nodules. Right lower lobe nodule may be increased from previous abdominal pelvic CT October 2017 and follow-up elective chest CT should be considered. Fleischner guidelines were followed. Head/Neck CTA 04/02/22 12:01 IMPRESSION: There is no stenosis of the cervical carotid or vertebral arteries. No intracranial large vessel occlusion. There are however multiple intracranial aneurysms, the largest which is an inferiorly projecting saccular aneurysm of the right internal carotid artery at the origin of the posterior communicating artery measuring 10 mm from base to apex. There are also smaller aneurysms involving both middle cerebral artery bifurcation, the anterior communicating artery, and basilar tip. Possible fibromuscular dysplasia of the extracranial internal carotid arteries. Grossly no evidence of acute territorial infarct or hemorrhage. No abnormal intracranial mass or enhancement. Small chronic left cerebellar infarct and scattered chronic small vessel ischemic changes within the periventricular white matter. Assessment and Plan (1) Rectal bleeding: Status: Acute Plan 71 years old lady with PMH of diastolic CHF, shayla, asthma, PAF, ulcerative colitis, depression, bioprosthetic aortic and mitral valve replacement?presented with BRBPR BRBPR due to postpolypectomy bleed npo, golkendrally incase scope needed, monitor h and h, continue to hold AC dysuria possibel UTI empiric rocephin follow up urine culture chornic diastolic chf euvolemic, monitor morbid obesity weight loss htn metorpolol paroxysmal afib metoprolol, holding AC dvt prophlayxis -mechanical due to gi bleed full code patient with significant bleeding, high risk due to obesity, chf, afib, therefore, expected to require atleast 2 midnights inpatient in the hospital. Quality Stroke Does the patient have a stroke diagnosis?: No VTE Prior VTE?: No VTE Risk Level:: Medical - moderate - high VTE Device Contraindication: N/A - Device Ordered VTE Drug Contraindication: Treatment Not Tolerated
[2022-04-02] MEDS: cefTRIAXone sodium 1 GM in 0.9 % Sodium Chloride 50 ML IV (17:53)
--- NOTE | 2022-04-02 18:40 | PHA.MEDREC ---
Pharmacy Consult ? Medication Reconciliation Pharmacy has completed the medication reconciliation. Spoke to patient son about medication list
[2022-04-02 18:58] VITALS: BP 183/72; PULSE 72; RESP 16; O2SAT 93
[2022-04-02] MEDS: PEG 3350/Na Sulf,Bicarb,Cl/KCL 4,000 ML SOLN.RECON 4000 ML PO (18:59)
[2022-04-02 20:23] LABS: Hematocrit 35.1 % (37.0-47.0); Hemoglobin 11.2 g/dl (12.0-16.0)
[2022-04-02] MEDS: Gabapentin 100 MG CAPSULE 200 MG PO (22:11)
[2022-04-02] MEDS: Ergocalciferol (Vitamin D2) 1,250 MCG CAPSULE 1250 MCG PO (22:11)
[2022-04-02] MEDS: Metoprolol Tartrate 100 MG TABLET PO (22:12)
--- NOTE | 2022-04-02 22:16 | PC.NURSE ---
Patient receiving Golytely prep for colonoscopy tomorrow. Patient used bedside commode with large amount of dark brown/red BM noted in bedside commode. Dr. Boyle notified.
--- NOTE | 2022-04-02 22:30 | PC.NURSE ---
Nurse to nurse report given to overflow RN, patient to be transferred to overflow bed 8.
[2022-04-02 22:54] LABS: Hematocrit 37.1 % (37.0-47.0); Hemoglobin 11.6 g/dl (12.0-16.0)
[2022-04-02] MEDS: 0.9 % Sodium Chloride Flush 3 ML SYRINGE IVFLUSH (23:59)
[2022-04-03] VITALS (14 sets, daily range): BP systolic 123–192; BP diastolic 60–83; PULSE 62–74; RESP 16–20; TEMP 36.1–36.9; O2SAT 92–99
--- NOTE | 2022-04-03 00:11 | PC.NURSE ---
pt rang the call estevez it was answered from the desk , i could not understand the pt so i said ill be right there, i went to the room, the pt was yelling, anxious stating that she needs more drink poured into her cup because she has to drink, she stated dont you know whats going on , i said no i just got here, she then said where is pato, she knows me her shift is over i said, , you dont know about me, i said no, she said well then get me someone else since you dont know your job, she said you were here this morning you took care of me i said no i didnt , i wasnt here, she then said well yall all look alike so go get me someone else, i poured her drink and walk outa the room and told my nurse what was said, i didnt go back into the room
[2022-04-03] MEDS: LORazepam 1 MG TABLET PO (01:23)
--- NOTE | 2022-04-03 04:55 | CONS_ITS ---
DATE OF SERVICE: 04/02/2022 REFERRING PHYSICIAN: LAUREL Snyder REASON FOR CONSULTATION: Gastrointestinal bleeding. HISTORY OF PRESENT ILLNESS: Patient is a pleasant 71-year-old woman who was admitted to the hospital after presenting to the emergency room with bleeding after recent colonoscopy. She underwent upper endoscopy and colonoscopy for iron deficiency anemia yesterday. She had biopsies taken from the duodenum and multiple 2-3 mm colonic polyps, which were biopsied. She had 2 larger polyps, which were resected with a cold snare, one at the cecum measuring 15 mm and one in the transverse colon measuring 20 mm. This morning, she started having bright red blood per rectum and had approximately 3 episodes of significant bleeding at home by her report with a third one showing some clotted blood. There was no associated pain. She does have a history of atrial fibrillation and a heart valve replacement and is on Coumadin. She had been prescribed Lovenox over the weekend, which she took on Thursday and Thursday. Her last dose of warfarin was Thursday and she has not taken any since. Her INR on admission was normal and her hematocrit initially was 31.5 and on repeat approximately 6 hours later was 31.6. She has had no further bleeding since arrival in the emergency department. PAST MEDICAL HISTORY: 1. Ulcerative colitis, which she states is currently in remission and is not being treated with medications. 2. Anemia with history of iron infusions and transfusions, followed by Dr. Castillo. 3. Congestive heart failure. 4. Colon polyps and colonoscopy as above. 5. Osteoporosis. 6. Gastroesophageal reflux disease. 7. Congestive heart failure. 8. Hypertension. 9. Intestinal cystitis. 10. Depression. 11. Osteoarthritis. 12. Atrial fibrillation. 13. PTSD. CURRENT MEDICATIONS: Her current medication list is reviewed in the chart. ALLERGIES: THERE ARE NO REPORTED DRUG ALLERGIES. SHE DOES HAVE AN ALLERGY TO ADHESIVE. FAMILY HISTORY: This is reviewed with the patient and is noncontributory. SOCIAL HISTORY: There is no current tobacco, alcohol, or substance abuse. REVIEW OF SYSTEMS: SKIN: No pruritus. HEENT: Negative. CARDIOPULMONARY: No shortness of breath or chest pain. GASTROINTESTINAL: As above. GENITOURINARY: Negative. NEUROPSYCHIATRIC: Negative. PHYSICAL EXAMINATION: GENERAL: Shows a pleasant female, lying comfortably in bed. VITAL SIGNS: Reviewed in electronic medical record and are stable. SKIN: Anicteric. There is ecchymosis around her neck, which she believes is related to a strap used to secure a bite block during her endoscopy. HEENT: Otherwise unremarkable. NECK: Without lymphadenopathy. LUNGS: Clear. ABDOMEN: Soft and nontender. Bowel sounds are present. No organomegaly is noted. EXTREMITIES: Without edema. LABORATORY DATA: Including CT scanning of the abdomen and pelvis is reviewed. IMPRESSION: Rectal bleeding. This appears consistent with a post polypectomy bleed likely from one of the larger polyps that was removed at the time of colonoscopy. At this time, I would recommend holding anticoagulation and monitoring her hematocrit. She will undergo a GoLYTELY bowel prep in the event that she needs to have repeat colonoscopy with possible endoscopic therapy, which could include cauterization or clipping as well as epinephrine injection for recurrent bleeding. If her hematocrit remained stable, I would hold off on colonoscopy and hold off on anticoagulation for a week if possible from a cardiac standpoint. This was discussed with the patient and her son. Thank you for asking me to see her. I will follow her in the hospital with you. MD DANG Levy/ROBERTO / [id number]
[2022-04-03 06:02] LABS: Hematocrit 31.2 % (37.0-47.0); Mean Corpuscular HGB Conc 32.1 g/dl (31.0-35.0); Mean Corpuscular Hemoglobin 25.4 pg (27.0-33.0); Mean Corpuscular Volume 79.4 fL (80.0-98.0); Mean Platelet Volume 9.5 fL (9.4-12.3); Platelet Count 251 X10*3/uL (160-400); Red Blood Count 3.93 X10*6/uL (4.20-5.50); White Blood Count 7.4 X10*3/uL (4.8-10.8)
[2022-04-03 06:20] LABS: Anion Gap 15 (12-20); Blood Urea Nitrogen 8 mg/dL (9-16); Calcium 8.8 mg/dL (8.4-10.2); Carbon Dioxide 25 mmol/L (22-29); Chloride 104 mmol/L (96-108); Creatinine Clr Calc Pharmacy 64.5; Estimated Glomerular Filt Rate > 60; Glucose Fasting 78 mg/dL (60-99); Potassium 4.5 mmol/L (3.3-5.1); Sodium 139 mmol/L (135-145)
--- NOTE | 2022-04-03 07:56 | PM.EVENT ---
Event Note Date of Service: 04/03/22 Event Note: GI pt reports bloody diarrhea with bowel prep hct fluctuating, she hasn't required blood transfusion. colonoscopy planned for later today to reassess polypectomy sites as she will need to restart coumadin at some point. she is aware of risks and benefits and agrees to proceed.
--- NOTE | 2022-04-03 08:03 | MHC.SHP ---
Pre-Procedural Eval Section A Date of Service: 04/03/22 The patient is an INPATIENT: Yes Changes since office visit: No Cold of Flu in the past 2 weeks, No New Medical Problems, No Changes in Medication and No Patient answered all questions The History & Physical has been completed within 30 days and I have reviewed it.: Yes Section B Chief Complaint: GI Bleed Allergies: Allergies Allergy/AdvReac Type Severity Reaction Status Date / Time adhesive [ADHESIVE] Allergy Unknown LOCAL Verified 03/26/22 11:32 REACTION Plan I have reviewed the history and physical and performed a pertinent physical examination on my patient. No changes have occurred unless specified.
--- NOTE | 2022-04-03 08:50 | MHC.CM.PN ---
PT REPORTS SHE LIVES AT HOME WITH HER SON AND REQUIRES SOME ASSISTANCE WITH CARE SHE REPORTS SHE HAS 20 HOURS OF ADVISOR [employer] PER WEEK THROUGH [facility] SHE HAS A CANE AND A WALKER BUT FURNITURE WALKS AT HOME SHE HAS A HCP ON FILE PCP: MARYANNE VALENTIN + KILEY ESPINAL W/ ONE BOOSTER IMM DELIVERED, COPY SENT TO [facility] CURRENT DC PLAN IS HOME WITH RESUMPTION OF [employer] SON TO TRANSPORT
[2022-04-03] MEDS: Escitalopram Oxalate 20 MG TABLET PO (09:39)
[2022-04-03] MEDS: Losartan Potassium 25 MG TABLET PO (09:39)
[2022-04-03] MEDS: Escitalopram Oxalate 5 MG TABLET PO (09:40)
[2022-04-03] MEDS: Omeprazole 40 MG CAPSULE.DR PO (09:40)
[2022-04-03] MEDS: Gabapentin 100 MG CAPSULE 200 MG PO ×2 (09:40→20:43)
[2022-04-03] MEDS: 0.9 % Sodium Chloride Flush 3 ML SYRINGE IVFLUSH ×2 (09:47→20:47)
[2022-04-03] MEDS: Metoprolol Tartrate 100 MG TABLET PO ×2 (10:32→20:42)
--- NOTE | 2022-04-03 11:24 | PC.NURSE ---
Patient alert and oriented x3. VSS. Patient NPO since midnight in preparation for colonoscopy today. Per patient stool clear brown, liquid. Lung sounds clear, positive bowel sounds. Denies pain, SOB, chest pain. All needs met at this time.
--- NOTE | 2022-04-03 11:26 | P.PNIM_ITS ---
Subjective Subjective Date of Service: 04/03/22 Interval History: cc: brbpr interval history:had blood with prep Cardiovascular Cardiovascular: Reports no additional cardiovascular complaints Respiratory Respiratory: Reports no additional respiratory complaints Physical Exam Vital Signs: Vital Signs: Last Vital Signs Temp 98.5 F 04/03/22 08:36 Pulse 74 04/03/22 08:36 Resp 20 04/03/22 08:36 BP 172/63 H 04/03/22 08:36 Pulse Ox 94 04/03/22 08:36 O2 Del Method 04/03/22 08:36 BMI result Body Mass Index 40.0 General: AO X 3, no acute distress Resp: CTA bilateral, no accessory muscles used CVS: S1,S2,RRR GI: soft, non tender, non distended Neuro: motor grossly intact, alert Psych: appropriate affect, appropriate insight Objective Data Active Medications Atorvastatin Calcium (Atorvastatin Calcium 20 Mg Tablet) 20 mg PO DAILY [facility] Last Admin: 04/03/22 10:32 Dose: Not Given Documented By: CHANELLE Non-Admin Reason: Med Not Available Doxepin HCl (Doxepin Hcl 25 Mg Capsule) 25 mg PO BEDTIME [facility] Last Admin: 04/02/22 22:13 Dose: Not Given Documented By: LOGAN Non-Admin Reason: Med Not Available Ergocalciferol (Ergocalciferol (Vitamin D2) 1,250 Mcg Capsule) 1,250 mcg PO WE [facility] Last Admin: 04/02/22 22:11 Dose: 1,250 mcg Documented By: LOGAN Escitalopram Oxalate (Escitalopram Oxalate 5 Mg Tablet) 5 mg PO DAILY [facility] Last Admin: 04/03/22 09:40 Dose: 5 mg Documented By: CHANELLE Escitalopram Oxalate (Escitalopram Oxalate 20 Mg Tablet) 20 mg PO DAILY [facility] Last Admin: 04/03/22 09:39 Dose: 20 mg Documented By: CHANELLE Gabapentin (Gabapentin 100 Mg Capsule) 200 mg PO TID [facility] Last Admin: 04/03/22 09:40 Dose: 200 mg Documented By: CHANELLE Ceftriaxone Sodium 1 gm/ (Sodium Chloride) 50 mls @ 100 mls/hr IV Q24H [facility] Lorazepam (Lorazepam 1 Mg Tablet) 1 mg PO BID PRN PRN Reason: Anxiety Last Admin: 04/03/22 01:23 Dose: 1 mg Documented By: DIRK Losartan Potassium (Losartan Potassium 25 Mg Tablet) 25 mg PO DAILY [facility]; Protocol Last Admin: 04/03/22 09:39 Dose: 25 mg Documented By: CHANELLE Metoprolol Tartrate (Metoprolol Tartrate 100 Mg Tablet) 100 mg PO BID [facility]; Protocol Last Admin: 04/03/22 10:32 Dose: 100 mg Documented By: CHANELLE Omeprazole (Omeprazole 40 Mg Capsule.Dr) 40 mg PO DAILY@0630 [facility] Last Admin: 04/03/22 09:40 Dose: 40 mg Documented By: CHANELLE Pharmacy Consult (Consult Rx Perform Med Rec) 1 each MISCELLANE ONCE PRN PRN Reason: Consult order Sodium Chloride (0.9 % Sodium Chloride Flush 3 Ml Syringe) 3 ml IVFLUSH QSHIFT [facility] Last Admin: 04/03/22 09:47 Dose: 3 ml Documented By: CHANELLE Labs CBC & Chem 7: 04/03/22 05:40 04/03/22 05:40 Labs: Laboratory Results - last 24 hr 04/02/22 04/02/22 04/03/22 15:31 16:13 05:40 MCV 80.2 79.4 L MCH 25.4 L 25.4 L MCHC 31.6 32.1 RDW 23.4 H TNP Plt Count 249 251 MPV 9.7 9.5 Immature Gran % (Auto) 0.3 Neut % (Auto) 74.4 H Lymph % (Auto) 14.9 L [place] % (Auto) 6.6 Eos % (Auto) 3.0 Baso % (Auto) 0.8 Lymph # (Auto) 0.9 L [place] # (Auto) 0.4 Eos # (Auto) 0.2 Baso # (Auto) 0.1 Abs Immat Gran (auto) 0.02 Absolute Neuts (auto) 4.5 Absolute Nucleated RBC 0.000 0.000 Nucleated RBC % (auto) 0.0 0.0 Anion Gap Estim Creat Clear Calc Estimated GFR Fasting Glucose Calcium COVID-19 (HAZEL) Negative COVID-19 Clin Com See Note 04/03/22 05:40 MCV MCH MCHC RDW Plt Count MPV Immature Gran % (Auto) Neut % (Auto) Lymph % (Auto) [place] % (Auto) Eos % (Auto) Baso % (Auto) Lymph # (Auto) [place] # (Auto) Eos # (Auto) Baso # (Auto) Abs Immat Gran (auto) Absolute Neuts (auto) Absolute Nucleated RBC Nucleated RBC % (auto) Anion Gap 15 Estim Creat Clear Calc 64.5 Estimated GFR > 60 Fasting Glucose 78 Calcium 8.8 COVID-19 (HAZEL) COVID-19 Clin Com Assessment and Plan (1) Rectal bleeding: Status: Acute Plan 71 years old lady with PMH of diastolic CHF, shayla, asthma, PAF, ulcerative colitis, depression, bioprosthetic aortic and mitral valve replacement?presented with BRBPR BRBPR due to postpolypectomy bleed plan for colonoscopy today monitor h and h dysuria possible UTI empiric rocephin follow up urine culture chornic diastolic chf euvolemic, monitor morbid obesity weight loss htn metorpolol paroxysmal afib metoprolol, holding AC dvt prophlayxis -mechanical due to gi bleed full code reason for continued hospitalization:plan for scope today Quality Stroke Does the patient have a stroke diagnosis?: No VTE Prior VTE?: No VTE Risk Level:: Medical - moderate - high VTE Device Contraindication: N/A - Device Ordered VTE Drug Contraindication: Treatment Not Tolerated
--- NOTE | 2022-04-03 11:52 | HO.ANESPROP2 ---
HPI - Anesthesia Eval Consult details Narrative: 71 yo female patient for colonoscopy. S/p EGD, Colonoscopy 04/01/22 at [facility]. With rectal bleeding next day- large amounts. To ER yesterday. Reportedly woke up with large bruise anterior neck right PMFSH Active Problems Active Problems: All Active Problems (Updated 04/03/22 @ 11:48 by Mehreen Rees, RN) CHF exacerbation (Acute) Chronic anticoagulation (Acute) Hypoxia (Acute) GI bleed (Acute) Hyperkalemia (Acute) Positive occult stool blood test (Acute) Hospital discharge follow-up (Acute) Chronic hyponatremia (Acute) Nephropathy (Acute) Cardiomyopathy (Acute) Paroxysmal atrial fibrillation (Acute) Morbid obesity due to excess calories (Acute) Aortic valve replaced (Acute) History of mitral valve replacement (Acute) Rectal bleeding (Acute) Sleep study ? mild KAMI. No CPAP recommended. O2 at night recommended but not using because cannot tolerate device Past Medical History Medical History (Updated 04/03/22 @ 11:48 by Mehreen Rees RN) Age related osteoporosis Anemia Anticoagulant long-term use Asthma, moderate persistent Chronic GERD Diastolic congestive heart failure Establishing care with new doctor, encounter for Generalized anxiety disorder with panic attacks History of ulcerative colitis Hypertension, essential Insomnia Interstitial cystitis Iron deficiency anemia Lipid disorder Major depression, recurrent Osteoarthritis, hip, bilateral Paroxysmal atrial fibrillation Post cardiotomy syndrome PTSD (post-traumatic stress disorder) Right carpal tunnel syndrome Urinary incontinence Wheezing Family History Family History Daughter Mental health disorder Substance use disorder Father Emphysema lung Mother Heart disease Stroke Pacemaker Arthritis Family/Other Colon cancer Sister Crohn's disease Family history of problems with anesthesia: No Surgical History Surgical History (Updated 04/03/22 @ 11:48 by Mehreen Rees RN) History of arthroplasty of both knees History of artificial heart valve History of kyphoplasty Hx of hysterectomy Hx of rotator cuff surgery Status post aortic valve replacement Status post mitral valve replacement History of Problems with Anesthesia: Yes (Anesthesia 'blew out her artery' during knee replacement surgey- whole arm and side bruised for months) Social History Social History Household Members: Children Housing: Apartment Are you a primary primary care coordinator to a significant other at home: No Do you presently have visiting nurse or other home services: No Alcohol intake: never Patient Tobacco Use Status: Former Tobacco user Quit Date: 28 yrs ago Smoked in Last 30 Days: No e-Cigarette/Vaping Use: Never Used Use of substances other than those prescribed or required for medical reasons: Yes Substance Use Type: Marijuana Substance Use Frequency: Occasionally Are you DNR?: No Advance Directives: Yes Advance Directives on File: Yes Advance Directives Date on File: 03/17/22 service: No Current occupational status: retired Cognitive needs: No Hearing needs: No Vision needs: Yes Meds Allergies Allergy/AdvReac Type Severity Reaction Status Date / Time adhesive [ADHESIVE] Allergy Unknown LOCAL Verified 03/26/22 11:32 REACTION Active Medications: Current Medications Atorvastatin Calcium (Atorvastatin Calcium 20 Mg Tablet) 20 mg PO DAILY [facility] Last Admin: 04/03/22 10:32 Dose: Not Given Doxepin HCl (Doxepin Hcl 25 Mg Capsule) 25 mg PO BEDTIME [facility] Last Admin: 04/02/22 22:13 Dose: Not Given Ergocalciferol (Ergocalciferol (Vitamin D2) 1,250 Mcg Capsule) 1,250 mcg PO WE [facility] Last Admin: 04/02/22 22:11 Dose: 1,250 mcg Escitalopram Oxalate (Escitalopram Oxalate 5 Mg Tablet) 5 mg PO DAILY [facility] Last Admin: 04/03/22 09:40 Dose: 5 mg Escitalopram Oxalate (Escitalopram Oxalate 20 Mg Tablet) 20 mg PO DAILY [facility] Last Admin: 04/03/22 09:39 Dose: 20 mg Gabapentin (Gabapentin 100 Mg Capsule) 200 mg PO TID [facility] Last Admin: 04/03/22 09:40 Dose: 200 mg Ceftriaxone Sodium 1 gm/ (Sodium Chloride) 50 mls @ 100 mls/hr IV Q24H [facility] Lorazepam (Lorazepam 1 Mg Tablet) 1 mg PO BID PRN PRN Reason: Anxiety Last Admin: 04/03/22 01:23 Dose: 1 mg Losartan Potassium (Losartan Potassium 25 Mg Tablet) 25 mg PO DAILY [facility]; Protocol Last Admin: 04/03/22 09:39 Dose: 25 mg Metoprolol Tartrate (Metoprolol Tartrate 100 Mg Tablet) 100 mg PO BID [facility]; Protocol Last Admin: 04/03/22 10:32 Dose: 100 mg Omeprazole (Omeprazole 40 Mg Capsule.Dr) 40 mg PO DAILY@0630 [facility] Last Admin: 04/03/22 09:40 Dose: 40 mg Pharmacy Consult (Consult Rx Perform Med Rec) 1 each MISCELLANE ONCE PRN PRN Reason: Consult order Sodium Chloride (0.9 % Sodium Chloride Flush 3 Ml [facility]ringe) [facility] Admin: 04/03/22 09:47 Dose: 3 ml Home Medications Medication Instructions Recorded Confirmed Last Taken Type escitalopram oxalate 20 mg tablet 20 mg PO DAILY 10/30/21 04/02/22 Unknown History (Lexapro) furosemide 40 mg tablet (Lasix) 40 mg PO DAILY 10/30/21 04/02/22 Unknown History gabapentin 100 mg capsule 200 mg PO TID 10/30/21 04/02/22 Unknown History (Neurontin) losartan 25 mg tablet (Cozaar) 25 mg PO DAILY 10/30/21 04/02/22 Unknown History metoprolol tartrate 100 mg tablet 100 mg PO BID 10/30/21 04/02/22 Unknown History (Lopressor) potassium chloride 10 mEq 10 meq PO DAILY 10/30/21 04/02/22 Unknown History tablet,extended release (K-Tab) doxepin 25 mg capsule 1 cap PO BEDTIME 11/14/21 04/02/22 04/01/22 History lorazepam 1 mg tablet 1 mg PO BID PRN Anxiety 11/14/21 04/02/22 Unknown History albuterol sulfate 2.5 mg/3 mL 1 vial inhalation Q4H PRN wheezing 03/17/22 04/02/22 Unknown History (0.083 %) solution for nebulization biotin 2,500 mcg capsule 2,500 mcg PO DAILY 03/17/22 04/02/22 Unknown History dexlansoprazole 60 mg 1 cap PO DAILY 03/17/22 04/02/22 Unknown History capsule,biphase delayed release ergocalciferol (vitamin D2) 1,250 1,250 mcg PO WE 03/17/22 04/02/22 03/26/22 History mcg (50,000 unit) capsule escitalopram oxalate 5 mg tablet 1 tab PO DAILY 03/17/22 04/02/22 Unknown History magnesium 250 mg tablet 250 mg PO DAILY 03/17/22 04/02/22 Unknown History vitamin B complex 1 tab PO DAILY 03/17/22 04/02/22 Unknown History warfarin 2 mg tablet (Jantoven) 4 mg PO DAILY 03/17/22 04/02/22 03/30/22 History aspirin 81 mg tablet,delayed 81 mg PO DAILY 04/02/22 04/02/22 Unknown History release Exam Exam Date and Time: April 03, 2022 1152 Height,Weight and Vital Signs: Height 5 ft Weight 92.986 kg Last Vital Signs Temp 98.5 F 04/03/22 08:36 Pulse 74 04/03/22 08:36 Resp 20 04/03/22 08:36 BP 172/63 H 04/03/22 08:36 Pulse Ox 94 04/03/22 08:36 O2 Del Method 04/03/22 08:36 Pertinent Lab Results Pertinent Lab Results: Laboratory Tests 04/02/22 04/02/22 04/02/22 09:00 09:00 09:00 WBC 6.2 RBC 3.95 L Hgb 9.8 L Hct 31.5 L MCV 79.7 L MCH 24.8 L MCHC 31.1 RDW 23.0 H Plt Count 260 MPV 9.0 L Immature Gran % (Auto) 0.3 Neut % (Auto) 73.9 H Lymph % (Auto) 15.1 L [place] % (Auto) 6.7 Eos % (Auto) 3.4 Baso % (Auto) 0.6 Lymph # (Auto) 0.9 L [place] # (Auto) 0.4 Eos # (Auto) 0.2 Baso # (Auto) 0.0 Abs Immat Gran (auto) 0.02 Absolute Neuts (auto) 4.6 Absolute Nucleated RBC 0.000 Nucleated RBC % (auto) 0.0 PT 12.6 INR 1.1 APTT 31.5 Sodium 135 Potassium 5.1 Chloride 100 Carbon Dioxide 23 Anion Gap 17 BUN 11 Creatinine 0.77 Estim Creat Clear Calc 66.2 Estimated GFR > 60 Random Glucose 82 Fasting Glucose Calcium 8.9 Total Bilirubin 0.4 AST 34 H D ALT 17 Alkaline Phosphatase 59 B-Natriuretic Peptide Total Protein 5.7 L Albumin 3.4 L Urine Color Urine Appearance Urine pH Ur Specific [place] Urine Protein Urine Glucose (UA) Urine Ketones Urine Blood Urine Nitrite Ur Leukocyte Esterase Urine RBC Urine WBC Ur Squamous Epith Cells Urine Bacteria Hyaline Casts Stool Occult Blood COVID-19 (HAZEL) COVID-19 Clin Com Blood Type Antibody Screen 04/02/22 04/02/22 04/02/22 09:00 09:00 09:17 WBC RBC Hgb Hct MCV MCH MCHC RDW Plt Count MPV Immature Gran % (Auto) Neut % (Auto) Lymph % (Auto) [place] % (Auto) Eos % (Auto) Baso % (Auto) Lymph # (Auto) [place] # (Auto) Eos # (Auto) Baso # (Auto) Abs Immat Gran (auto) Absolute Neuts (auto) Absolute Nucleated RBC Nucleated RBC % (auto) PT INR APTT Sodium Potassium Chloride Carbon Dioxide Anion Gap BUN Creatinine Estim Creat Clear Calc Estimated GFR Random Glucose Fasting Glucose Calcium Total Bilirubin AST ALT Alkaline Phosphatase B-Natriuretic Peptide 508 H Total Protein Albumin Urine Color Urine Appearance Urine pH Ur Specific [place] Urine Protein Urine Glucose (UA) Urine Ketones Urine Blood Urine Nitrite Ur Leukocyte Esterase Urine RBC Urine WBC Ur Squamous Epith Cells Urine Bacteria Hyaline Casts Stool Occult Blood POSITIVE COVID-19 (HAZEL) COVID-19 Clin Com Blood Type O Positive Antibody Screen NEGATIVE 04/02/22 04/02/22 04/02/22 09:29 15:31 16:13 WBC 6.1 RBC 3.94 L Hgb 10.0 L Hct 31.6 L MCV 80.2 MCH 25.4 L MCHC 31.6 RDW 23.4 H Plt Count 249 MPV 9.7 Immature Gran % (Auto) 0.3 Neut % (Auto) 74.4 H Lymph % (Auto) 14.9 L [place] % (Auto) 6.6 Eos % (Auto) 3.0 Baso % (Auto) 0.8 Lymph # (Auto) 0.9 L [place] # (Auto) 0.4 Eos # (Auto) 0.2 Baso # (Auto) 0.1 Abs Immat Gran (auto) 0.02 Absolute Neuts (auto) 4.5 Absolute Nucleated RBC 0.000 Nucleated RBC % (auto) 0.0 PT INR APTT Sodium Potassium Chloride Carbon Dioxide Anion Gap BUN Creatinine Estim Creat Clear Calc Estimated GFR Random Glucose Fasting Glucose Calcium Total Bilirubin AST ALT Alkaline Phosphatase B-Natriuretic Peptide Total Protein Albumin Urine Color Dark Yellow Urine Appearance Clear Urine pH 7.5 Ur Specific [place] <= 1.005 Urine Protein Negative Urine Glucose (UA) Negative Urine Ketones Negative Urine Blood Small (1+) H Urine Nitrite Positive H Ur Leukocyte Esterase Trace H Urine RBC 0-2 Urine WBC 0-5 Ur Squamous Epith Cells 0-2 Urine Bacteria None Seen Hyaline Casts 0-2 Stool Occult Blood COVID-19 (HAZEL) Negative COVID-19 Clin Com See Note Blood Type Antibody Screen 04/02/22 04/02/22 04/03/22 20:09 22:46 05:40 WBC 7.4 RBC 3.93 L Hgb 11.2 L 11.6 L 10.0 L Hct 35.1 L 37.1 31.2 L MCV 79.4 L MCH 25.4 L MCHC 32.1 RDW TNP Plt Count 251 MPV 9.5 Immature Gran % (Auto) Neut % (Auto) Lymph % (Auto) [place] % (Auto) Eos % (Auto) Baso % (Auto) Lymph # (Auto) [place] # (Auto) Eos # (Auto) Baso # (Auto) Abs Immat Gran (auto) Absolute Neuts (auto) Absolute Nucleated RBC 0.000 Nucleated RBC % (auto) 0.0 PT INR APTT Sodium Potassium Chloride Carbon Dioxide Anion Gap BUN Creatinine Estim Creat Clear Calc Estimated GFR Random Glucose Fasting Glucose Calcium Total Bilirubin AST ALT Alkaline Phosphatase B-Natriuretic Peptide Total Protein Albumin Urine Color Urine Appearance Urine pH Ur Specific [place] Urine Protein Urine Glucose (UA) Urine Ketones Urine Blood Urine Nitrite Ur Leukocyte Esterase Urine RBC Urine WBC Ur Squamous Epith Cells Urine Bacteria Hyaline Casts Stool Occult Blood COVID-19 (HAZEL) COVID-19 Clin Com Blood Type Antibody Screen 04/03/22 05:40 WBC RBC Hgb Hct MCV MCH MCHC RDW Plt Count MPV Immature Gran % (Auto) Neut % (Auto) Lymph % (Auto) [place] % (Auto) Eos % (Auto) Baso % (Auto) Lymph # (Auto) [place] # (Auto) Eos # (Auto) Baso # (Auto) Abs Immat Gran (auto) Absolute Neuts (auto) Absolute Nucleated RBC Nucleated RBC % (auto) PT INR APTT Sodium 139 Potassium 4.5 Chloride 104 Carbon Dioxide 25 Anion Gap 15 BUN 8 L Creatinine 0.79 Estim Creat Clear Calc 64.5 Estimated GFR > 60 Random Glucose Fasting Glucose 78 Calcium 8.8 Total Bilirubin AST ALT Alkaline Phosphatase B-Natriuretic Peptide Total Protein Albumin Urine Color Urine Appearance Urine pH Ur Specific [place] Urine Protein Urine Glucose (UA) Urine Ketones Urine Blood Urine Nitrite Ur Leukocyte Esterase Urine RBC Urine WBC Ur Squamous Epith Cells Urine Bacteria Hyaline Casts Stool Occult Blood COVID-19 (HAZEL) COVID-19 Clin Com Blood Type Antibody Screen Narrative Narrative: Bruised all over Airway Mallampati Class: III (Small mouth opening) TM Dist: >3cm (No neck, bruise right neck anterior) Neck ROM: Full Partial: Upper Loose/Missing/Broken Teeth: Yes (Caps intact. Denies broken or loose teeth) Heart: RRR + systolic murmur Lungs: CTAB Assessment and Plan Assessment Anesthesia Assessment: Anesthesia Plan Discussed and Chart Reviewed Final Anesthetic Review Family History of Problems with Anesthesia: No History of Problems with Anesthesia: Yes (Anesthesia 'blew out her artery' during knee replacement surgey- whole arm and side bruised for months) NPO: Yes ASA Class: III and Emergency Final Preanesthetic Review: No Changes in Pt Med Stat, Meds/Allgs Chart Reviewed, Consent Obtained/Reviewed and Anes Risks/Benef Reviewed Patient Risk: High Procedure Risk: Low Assessment/Block/Sedation in SS: Assess/Block/Sedation-SS Anesthetic Plan Anesthetic Plan: GA Disposition: Standard PACU
--- NOTE | 2022-04-03 13:20 | P.BOP_ITS ---
Brief Operative Note Date of Service: 04/03/22 Pre-op diagnosis: gi bleed Post-op diagnosis: same Procedure: colonoscopy Surgeon: Ramses Cunningham Anesthesia: GLMA Was an Extension Service Supervisor used for this Procedure?: No Estimated blood loss (mL): 0 Pathology: none sent Condition: stable Disposition: PACU
--- NOTE | 2022-04-03 13:21 | PM.EVENT ---
Event Note Date of Service: 04/03/22 Event Note: GI cecal polypectomy site identified as source of bleeding treated with hemostatic therapy advance diet observe today no coumadin for 1 week.
--- NOTE | 2022-04-03 15:29 | PC.NURSE ---
bp 189/79, patient just arrived from PACU. Dr Nino made aware.
--- NOTE | 2022-04-03 16:23 | PC.NURSE ---
received a message via [employer] from coat hanger shaper machine operatorCRISTOPHER Rivera stating patients son took all patients belongings. She only has glasses left with her.
[2022-04-03] MEDS: cefTRIAXone sodium 1 GM in 0.9 % Sodium Chloride 50 ML IV (18:12)
[2022-04-03] MEDS: Doxepin HCl 25 MG CAPSULE PO (20:43)
[2022-04-04] VITALS: BP 142/78; PULSE 68; RESP 18; TEMP 36.2; O2SAT 96
--- NOTE | 2022-04-04 02:52 | OP_ITS ---
SURGEON: Ramses Cunningham MD INDICATIONS: GI bleeding. General via laryngeal mask airway. PREOPERATIVE DIAGNOSIS: POSTOPERATIVE DIAGNOSIS: PROCEDURE PERFORMED: Colonoscopy to the cecum with control of hemorrhage. ESTIMATED BLOOD LOSS: COMPLICATIONS: ANESTHESIA: ASSISTANTS: SPECIMENS: DESCRIPTION OF PROCEDURE: The procedure was performed on 04/03/2022. History and physical performed. The risks and benefits of the procedure were explained to the patient. Informed consent was obtained. The patient was placed in the left lateral decubitus position. A digital rectal exam was performed and was found to be normal. The Olympus pediatric video colonoscope was introduced into the rectum and advanced to the cecum without difficulty. The cecum was identified by transillumination, palpation, and identification of the ileocecal valve. Examination was performed. The scope was removed. She tolerated the procedure well and was taken to recovery room in stable condition. FINDINGS: The terminal ileum was not examined. There was no active bleeding. There was a polypectomy site in the cecum with adherent clot in 2 separate positions. This appeared to be the source for her bleeding. There was no active bleeding, but because of the recent bleeding and the patient's need to resume Coumadin, the site was treated. A total of 3 cc of epinephrine was injected in the vicinity of the polypectomy site with good mucosal blanching. Next, the gold probe was used to cauterize the area where the adherent clot was. Following this, 2 endoscopic clips were applied at the clot sites with good deployment. Hemostasis was excellent at the termination of the procedure. Multiple other polypectomy sites were seen most of which were small and less than 5 mm. In the mid transverse colon, was a larger polypectomy site consistent with the 20 mm polyp, which was snared. According to the previous operative note, this appeared to have a fairly clean base and no therapy was performed. There were multiple small less than 5 mm polyps seen in the colon, which had not been removed and were not removed during this procedure because of the patient's recent hemorrhage. The sigmoid was quite redundant. There was extensive sigmoid diverticulosis. Retroflexed examination showed some large internal hemorrhoids. IMPRESSION: 1. Gastrointestinal bleeding secondary to cecal polypectomy site. 2. Colon polyps. 3. Diverticulosis. RECOMMENDATION: 1. The patient's diet will be advanced. 2. I would recommend monitoring of her hematocrit for the next 24 hours. 3. I would recommend Coumadin not be restarted for 1 week. MD DANG Levy/ROBERTO / [id number] MTDD
[2022-04-04 04:27] VITALS: BP 144/64; PULSE 63; RESP 17; TEMP 36.1; O2SAT 95
--- NOTE | 2022-04-04 04:48 | PC.NURSE ---
PT refusing to be woken up in am for Omeprazole, MD Boyle notified.
[2022-04-04 06:13] LABS: Hematocrit 31.7 % (37.0-47.0); Hemoglobin 9.8 g/dl (12.0-16.0); Mean Corpuscular HGB Conc 30.9 g/dl (31.0-35.0); Mean Corpuscular Hemoglobin 25.3 pg (27.0-33.0); Mean Corpuscular Volume 81.7 fL (80.0-98.0); Mean Platelet Volume 9.8 fL (9.4-12.3); Platelet Count 265 X10*3/uL (160-400); Red Blood Count 3.88 X10*6/uL (4.20-5.50); White Blood Count 6.9 X10*3/uL (4.8-10.8)
[2022-04-04 06:29] LABS: Anion Gap 14 (12-20); Blood Urea Nitrogen 9 mg/dL (9-16); Calcium 8.9 mg/dL (8.4-10.2); Carbon Dioxide 26 mmol/L (22-29); Chloride 100 mmol/L (96-108); Creatinine Clr Calc Pharmacy 60.7; Estimated Glomerular Filt Rate > 60; Glucose Fasting 83 mg/dL (60-99); Potassium 4.2 mmol/L (3.3-5.1); Sodium 136 mmol/L (135-145)
[2022-04-04 07:33] VITALS: BP 134/60; PULSE 64; RESP 18; TEMP 36.1; O2SAT 97
[2022-04-04] MEDS: 0.9 % Sodium Chloride Flush 3 ML SYRINGE IVFLUSH (09:04)
[2022-04-04] MEDS: Metoprolol Tartrate 100 MG TABLET PO (09:04)
[2022-04-04] MEDS: Losartan Potassium 25 MG TABLET PO (09:04)
[2022-04-04] MEDS: Escitalopram Oxalate 5 MG TABLET PO (09:04)
[2022-04-04] MEDS: Atorvastatin Calcium 20 MG TABLET PO (09:04)
[2022-04-04] MEDS: Escitalopram Oxalate 20 MG TABLET PO (09:04)
[2022-04-04] MEDS: Gabapentin 100 MG CAPSULE 200 MG PO (09:04)
--- NOTE | 2022-04-04 09:07 | PM.DS ---
DS: Providers Provider Date of Service: 04/04/22 Date of admission: 04/02/22 17:18 Primary care physician: Negrita Bains MD Consults: 04/02/22 15:22 Consult to Gastroenterology Stat Consulting Provider: Ramses Cunningham Reason for consultation: patient states large amount of rectal bleeding after Colonscopy. Has provider been notified: Yes DS: Diagnosis Discharge Diagnosis (1) Rectal bleeding: Status: Acute DS: Summary Hospital Course Hospital Course: from initial hpi: Chief Complaint: brbpr 71 years old lady with PMH of diastolic CHF, shayla, asthma, PAF, ulcerative colitis, depression, bioprosthetic aortic and mitral valve replacement?presented with BRBPR. patient underwent elective EGD/colonoscopy as outpatient on day prior to presentation for work up for iron defeciency anemia. EGD was reported to be unremarkable. colonoscopy showed multiple polyps which were snared. no obvious source of bleed. patient's warfarin was held and she was receiving therapeutic lovenox. early AM next day (day of presentation) patient passed several clots in stool followed by large volumed bright red blood. came to ED, in ED had no further bleeding, hgb stable. she was reporting ongoing dysuria without fever or chills, ua with nitrite. hospital course: Patient was admitted for bright red blood per rectum due to post polypectomy bleed. Her hemoglobin remained stable around 10. , on colonoscopy she had signs of bleeding at this cecal polypectomy site. Epinephrine was injected and site was cauterized. Patient no further bleeding. Recommendations are to rechallenge with Coumadin in 1 week. patient also being complaining about dysuria and had positive UA, likely acute cystitis, improved with ceftriaxone and will be discharged on 3 more days of cefuroxime. For morbid obesity weight loss recommended. For chronic diastolic CHF she remained stable. For hypertension she was continued on metoprolol. For paroxysmal atrial fibrillation she was continue metoprolol and will restart Coumadin in 1 week. Patient is feeling better will be discharged home. Time Spent with Patient Time attestation: Total time spent providing and/or coordinating discharge services: Discharge coordination time: Greater than 30 minutes Quality: Safe Use of Opioids Does Pt have an Active Cancer Diagnosis on the Problem List?: No Quality: Stroke Does the patient have a stroke diagnosis?: No Physical Exam Vital Signs: Vital Signs: Last Vital Signs Temp 96.9 F 04/04/22 07:33 Pulse 64 04/04/22 07:33 Resp 18 04/04/22 07:33 BP 134/60 04/04/22 07:33 Pulse Ox 97 04/04/22 07:33 O2 Del Method 04/04/22 07:33 O2 Flow Rate 2.0 04/04/22 00:00 BMI result Body Mass Index 40.0 General: AO X 3, no acute distress Resp: CTA bilateral, no accessory muscles used CVS: S1,S2,RRR GI: soft, non tender, non distended Neuro: motor grossly intact, alert Psych: appropriate affect, appropriate insight DS: Data Data Completed and Pending Labs on day of discharge: Laboratory Results - last 24 hr 04/04/22 04/04/22 05:14 05:14 WBC 6.9 RBC 3.88 L Hgb 9.8 L Hct 31.7 L MCV 81.7 MCH 25.3 L MCHC 30.9 L RDW TNP Plt Count 265 MPV 9.8 Absolute Nucleated RBC 0.000 Nucleated RBC % (auto) 0.0 Sodium 136 Potassium 4.2 Chloride 100 Carbon Dioxide 26 Anion Gap 14 BUN 9 Creatinine 0.84 Estim Creat Clear Calc 60.7 Estimated GFR > 60 Fasting Glucose 83 Calcium 8.9 Preliminary micro results at discharge 04/02/22 Unknown Urine Culture - Preliminary Urine clean catch - Urine hodges top Enterococcus faecalis Discharge Plan Discharge Anticipated Discharge Date/Time: 04/04/22 09:01 Patient Disposition: Home, Self-Care Discharge Diagnosis: postpolypectomy bleed, cystitis Referrals: Negrita Bains MD [Primary Care Provider] - 1 Week Discharge Medications: New cefuroxime axetil 500 mg tablet 500 mg PO BID Qty: 6 0RF Continued simvastatin [Zocor] 40 mg tablet 40 mg PO DAILY 90 Days Qty: 90 0RF doxepin 25 mg capsule 1 cap PO BEDTIME lorazepam 1 mg tablet 1 mg PO BID PRN (Reason: Anxiety) ferrous sulfate [Feosol] 325 mg (65 mg iron) Tablet 325 mg PO BID Qty: 60 3RF escitalopram oxalate 5 mg tablet 1 tab PO DAILY dexlansoprazole 60 mg capsule,biphase delayed releas 1 cap PO DAILY albuterol sulfate 2.5 mg /3 mL (0.083 %) solution for nebulization 1 vial inhalation Q4H PRN (Reason: wheezing) vitamin B complex Tablet 1 tab PO DAILY magnesium 250 mg Tablet 250 mg PO DAILY ergocalciferol (vitamin D2) 1,250 mcg (50,000 unit) Capsule 1,250 mcg PO WE Label Comments: thursday biotin 2,500 mcg Capsule 2,500 mcg PO DAILY fluticasone furoate-vilanterol [Breo Ellipta] 100-25 mcg/dose blister with device 1 ea inhalation DAILY 30 Days Qty: 60 0RF losartan [Cozaar] 25 mg tablet 25 mg PO DAILY metoprolol tartrate [Lopressor] 100 mg tablet 100 mg PO BID gabapentin [Neurontin] 100 mg capsule 200 mg PO TID furosemide [Lasix] 40 mg tablet 40 mg PO DAILY escitalopram oxalate [Lexapro] 20 mg tablet 20 mg PO DAILY potassium chloride [K-Tab] 10 mEq tablet extended release 10 meq PO DAILY Held warfarin [Jantoven] 2 mg tablet 4 mg PO DAILY Hold Instructions: Resume on 04/10/22. Discontinued aspirin 81 mg Tablet,Delayed Release (Dr/Ec) 81 mg PO DAILY Discharge Orders: Discharge Order (Routine); Ordered 04/04/22 Ordered By: Rosales Nino Activity on Discharge: As tolerated Stand Alone Forms: Patient Portal Discharge page Care Plan Goals: recovery Health Concerns: postpolypectomy bleed, cystitis, iron defeciency anemia Plan of Treatment: 3 more days ceftin, restart coumadin in one week, follow up gi for further work up Assessment: see above Patient Instructions: Rectal Bleeding (ED)
--- NOTE | 2022-04-04 10:06 | MHC.CM.PN ---
PT MEDICALLY CLEARED FOR D/C HOME AND RESUMPTION OF FAMILY SUPPORT AND ARTIST AND [employer]NA[employer] HRS, FAMILY FOR TRANSPORT
[2022-04-04] MEDS: Acetaminophen 325 MG TABLET 650 MG PO (10:52)
--- NOTE | 2022-04-04 12:24 | HO.POSTANES ---
Post Anesthesia Evaluation Post Anesthesia Evaluation Vital Signs: Vital Signs Temp Pulse Resp BP Pulse Ox O2 Del Method 04/04/22 07:33 96.9 F 64 18 134/60 97 Room Air 04/04/22 04:27 96.9 F 63 17 144/64 H 95 Room Air Anesthesia: General Mental Status: Awake Pain Control: Satisfactory Nausea/Vomiting: None Hydration: Adequate Anesthesia-Related Issues: No Anes. Related Issues
== END 2022-04-04 13:01 | disposition home or self-care (01) | DRG 920 ==
LOC: HO.ED 16:50 → HO.EDOVER 17:32 → HO.S3 04-03 12:42
PROVIDERS: Internal Medicine Gastroenterology; Physician Assistant; Student in an Organized Health Care Education/Training Program; Admitting Provider Internal Medicine; Emergency Provider Emergency Medicine; PCP Internal Medicine; Visit Provider Internal Medicine
PROC: 0DJD8ZZ Inspection of Lower Intestinal Tract, Via Natural or Artificial Opening Endoscopic (ICD-10-PCS; CPT 45378; principal; 2022-04-03 12:10)
DX: K91.840 Postprocedural hemorrhage of a digestive system organ or structure following a digestive system procedure (principal); F33.9 Major depressive disorder, recurrent, unspecified; I50.32 Chronic diastolic (congestive) heart failure; Z68.41 Body mass index [BMI] 40.0-44.9, adult; N30.00 Acute cystitis without hematuria; Y84.8 Other medical procedures as the cause of abnormal reaction of the patient, or of later complication, without mention of misadventure at the time of the procedure; I48.0 Paroxysmal atrial fibrillation; E66.01 Morbid (severe) obesity due to excess calories; I11.0 Hypertensive heart disease with heart failure; F43.10 Post-traumatic stress disorder, unspecified; K57.30 Diverticulosis of large intestine without perforation or abscess without bleeding; K21.9 Gastro-esophageal reflux disease without esophagitis; Z95.2 Presence of prosthetic heart valve; Z86.010 Personal history of colon polyps; Z20.822 Contact with and (suspected) exposure to COVID-19; Z79.51 Long term (current) use of inhaled steroids; Z79.01 Long term (current) use of anticoagulants; Z79.899 Other long term (current) drug therapy
CPT/HCPCS: 36415; 70496; 70498; 74177; 80048; 80053; 81001; 82272; 83880; 85014; 85018; 85025; 85027; 85610; 85730; 86850; 86900; 86901; 87086; 87088; 87186; 87635; 99284; J0171; J0696; J2405; Q9967

== ENCOUNTER 2022-06-25 15:06 | Outpatient (REF) | payer MEDICARE, MEDICAID, SELFPAY ==
[2022-06-25 16:43] LABS: MANUAL DIFF FLAG NO
[2022-06-25 16:47] LABS: Basophils Percent Auto 0.5 % (0-2); Eosinophils Absolute Auto 0.2 X10*3/uL (0.0-0.4); Eosinophils Percent Auto 2.5 % (0-4); Hematocrit 37.7 % (37.0-47.0); Hemoglobin 12.1 g/dl (12.0-16.0); Imm Gran Abs Auto 0.02 X10*3/uL (0.00-0.03); Imm Gran Pct Auto 0.3 % (0.0-0.4); Lymphocytes Absolute Auto 1.2 X10*3/uL (1.2-4.9); Lymphocytes Percent Auto 19.2 % (20-40); Mean Corpuscular HGB Conc 32.1 g/dl (31.0-35.0); Mean Corpuscular Hemoglobin 28.2 pg (27.0-33.0); Mean Corpuscular Volume 87.9 fL (80.0-98.0); Mean Platelet Volume 10.2 fL (9.4-12.3); Monocytes Absolute Auto 0.5 X10*3/uL (0.1-1.2); Monocytes Percent Auto 7.9 % (2-11); Neutrophils Absolute Auto 4.2 x10*3/uL (2.0-8.3); Neutrophils Percent Auto 69.6 % (45-73); Platelet Count 242 X10*3/uL (160-400); Red Blood Count 4.29 X10*6/uL (4.20-5.50); Red Cell Distribution Width 12.7 % (11.0-16.0)
[2022-06-25 16:51] LABS: Appearance Urine Cloudy; Glucose Urine UA 250 mg/dL (Negative); Leukocyte Esterase Urine Large (3+) (Negative); Nitrite Urine Positive (Negative); PH 6.5 (5.0-9.0); Specific Gravity - Urine <= 1.005 (1.005-1.025); UMIC TRIGGER UACC YES; Urine Blood Moderate (2+) (Negative); Urine Ketones Trace mg/dL (Negative); Urine Protein 100 (2+) mg/dL (Neg-Trace)
[2022-06-25 17:07] LABS: Color Urine ORANGE
[2022-06-25 17:20] LABS: Anion Gap 13 (12-20); Blood Urea Nitrogen 13 mg/dL (9-16); Calcium 8.8 mg/dL (8.4-10.2); Carbon Dioxide 30 mmol/L (22-29); Chloride 92 mmol/L (96-108); Estimated Glomerular Filt Rate > 60; Glucose Random 125 mg/dL (60-115); Magnesium 1.8 mg/dL (1.6-2.6); Potassium 4.7 mmol/L (3.3-5.1); Sodium 130 mmol/L (135-145)
[2022-06-25 17:28] LABS: Bacteria Urine 2+ (None Seen); Hyaline Casts Urine 0-2 /LPF (0-2); Squamous Epithelial Cell Urine 0-2 /HPF (0-2); UACC Culture Trigger YES; WBC Urine >50 /HPF (0-5)
== END 2022-06-25 15:07 | disposition home or self-care (01) ==
LOC: HO.HMGCLDS 15:06
PROVIDERS: Absent Provider Nurse Practitioner Family; PCP Internal Medicine; Visit Provider Internal Medicine
DX: N39.0 Urinary tract infection, site not specified (principal); D64.9 Anemia, unspecified; I50.33 Acute on chronic diastolic (congestive) heart failure
CPT/HCPCS: 36415; 80048; 81001; 81003; 83735; 85025; 87086; 87088; 87186

== ENCOUNTER 2022-07-11 14:34 | Outpatient (REF) | payer MEDICARE, MEDICAID, SELFPAY ==
[2022-07-11 17:13] LABS: Anion Gap 13 (12-20); Blood Urea Nitrogen 11 mg/dL (9-16); Carbon Dioxide 31 mmol/L (22-29); Chloride 93 mmol/L (96-108); Estimated Glomerular Filt Rate > 60; Glucose Random 80 mg/dL (60-115); Potassium 4.8 mmol/L (3.3-5.1); Sodium 132 mmol/L (135-145)
== END 2022-07-11 14:35 | disposition home or self-care (01) ==
LOC: HO.HMGCLDS 14:34
PROVIDERS: PCP Internal Medicine; Visit Provider Nurse Practitioner Family
DX: I50.30 Unspecified diastolic (congestive) heart failure (principal)
CPT/HCPCS: 36415; 80048; 83735

== ENCOUNTER 2022-08-14 13:00 | Outpatient (REF) | payer MEDICARE, MEDICAID, SELFPAY | END 2022-08-14 13:01 | disposition home or self-care (01) | LOC: HO.LAB 13:00 | PROVIDERS: PCP Internal Medicine; Visit Provider Nurse Practitioner Family | DX: R32 Unspecified urinary incontinence (principal); N30.10 Interstitial cystitis (chronic) without hematuria | CPT/HCPCS: 51798; 87086; 87088; 87186; 99202 ==

== ENCOUNTER 2022-09-02 13:00 | Outpatient (REF) | payer MEDICARE, MEDICAID, SELFPAY ==
--- NOTE | ~2022-09-02 | US_ITS ---
EXAMINATION: US RETROPERITONEAL COMPLETE (RENAL) CLINICAL INFORMATION: Urinary tract infection, site not specified. COMPARISON: CT abdomen and pelvis with contrast 04/02/2022. TECHNIQUE: Real-time imaging of the kidneys and bladder. Technically suboptimal study secondary to body habitus. FINDINGS: RIGHT KIDNEY: 10.0 x 4.8 x 5.2 cm (SAG x AP x TRV). The kidney is normal in size, contour, and echogenicity. Renal cortical thickness is normal. No calculi or focal parenchymal lesions. No hydronephrosis. LEFT KIDNEY: 10.5 x 4.9 x 5.3 cm (SAG x AP x TRV). The kidney is normal in size, contour, and echogenicity. Renal cortical thickness is normal. No calculi or focal parenchymal lesions. No hydronephrosis. BLADDER: Partially distended. Bilateral ureteral jets are demonstrated. Prevoid bladder volume is 76.3 mL. There is no postvoid residual. US/US retroperitoneal comp IMPRESSION: No nephrolithiasis or hydronephrosis.
== END 2022-09-02 13:01 | disposition home or self-care (01) ==
LOC: HO.HMGCX 13:00
PROVIDERS: PCP Internal Medicine; Visit Provider Nurse Practitioner Family
DX: N39.0 Urinary tract infection, site not specified (principal); R32 Unspecified urinary incontinence
CPT/HCPCS: 76770

== ENCOUNTER → 2022-10-16 13:16 | Outpatient (BNVA) | payer MEDICARE, MEDICAID, SELFPAY | PROVIDERS: PCP Internal Medicine; Visit Provider Nurse Practitioner Family | DX: N30.10 Interstitial cystitis (chronic) without hematuria (principal); N39.0 Urinary tract infection, site not specified; R32 Unspecified urinary incontinence | CPT/HCPCS: 51798; 99212 ==

== ENCOUNTER 2022-12-24 13:45 | Emergency (ER) | payer MEDICARE, MEDICAID, SELFPAY ==
--- NOTE | ~2022-12-24 | XR_ITS ---
EXAMINATION: XR CHEST CLINICAL INFORMATION: Shortness of breath COMPARISON: 03/17/2022 TECHNIQUE: 2 views of the chest were obtained. FINDINGS: Lungs grossly clear. Slightly elevated right hemidiaphragm stable. Heart size borderline with normal caliber pulmonary vessels. Sternal wires present. Postsurgical change right shoulder. Post vertebroplasty changes again observed in the lumbar spine. XR/XR chest 2V IMPRESSION: Chronic changes noted. No active disease.
[2022-12-24 13:48] VITALS: BP 131/50; PULSE 45; RESP 20; TEMP 35.8; O2SAT 94; BMI 40.2
--- NOTE | 2022-12-24 13:50 | ED_ITS ---
HPI - General Adult General Chief complaint: General Medical Stated complaint: blood in urine, chronic diharea, anemic Time Seen by Provider: 12/24/22 18:25 Source: patient Mode of arrival: ambulatory Limitations: no limitations History of Present Illness HPI narrative: Patient with aortic and mitral valve replaced AFib ulcerative colitis CHF interstitial cystitis on Coumadin comes here for last 3 weeks of watery diarrhea and for last 2- 3 days of gross hematuria with cramping lower abdomen patient is on Coumadin last INR was 2.0 no fever no chills no history of C diff infection no recent antibiotic Related Data Home Medications Medication Instructions Recorded Confirmed escitalopram oxalate 20 mg tablet 20 mg PO DAILY 10/30/21 07/28/22 (Lexapro) furosemide 40 mg tablet (Lasix) 40 mg PO DAILY 10/30/21 07/28/22 gabapentin 100 mg capsule 200 mg PO TID 10/30/21 07/28/22 (Neurontin) losartan 25 mg tablet (Cozaar) 25 mg PO DAILY 10/30/21 07/28/22 metoprolol tartrate 100 mg tablet 100 mg PO BID 10/30/21 07/28/22 (Lopressor) potassium chloride 10 mEq 10 meq PO DAILY 10/30/21 07/28/22 tablet,extended release (K-Tab) doxepin 25 mg capsule 1 cap PO BEDTIME 11/14/21 07/28/22 lorazepam 1 mg tablet 1 mg PO BID PRN Anxiety 11/14/21 07/28/22 albuterol sulfate 2.5 mg/3 mL 1 vial inhalation Q4H PRN wheezing 03/17/22 07/28/22 (0.083 %) solution for nebulization biotin 2,500 mcg capsule 2,500 mcg PO DAILY 03/17/22 07/28/22 dexlansoprazole 60 mg 1 cap PO DAILY 03/17/22 07/28/22 capsule,biphase delayed release ergocalciferol (vitamin D2) 1,250 1,250 mcg PO WE 03/17/22 07/28/22 mcg (50,000 unit) capsule escitalopram oxalate 5 mg tablet 1 tab PO DAILY 03/17/22 07/28/22 magnesium 250 mg tablet 250 mg PO DAILY 03/17/22 07/28/22 vitamin B complex 1 tab PO DAILY 03/17/22 07/28/22 warfarin 2 mg tablet (Jantoven) 4 mg PO DAILY 03/17/22 07/28/22 torsemide 20 mg tablet 1 tab PO DAILY 07/28/22 07/28/22 albuterol sulfate 90 mcg/actuation 2 puff inhalation Q4H PRN wheezing 10/16/22 aerosol inhaler (Ventolin HFA) Previous Rx's Medication Instructions Recorded ferrous sulfate 325 mg (65 mg 325 mg PO BID #60 tabs 09/12/22 iron) tablet (Feosol) solifenacin 10 mg tablet (Vesicare) 10 mg PO DAILY 90 days #90 tabs 10/16/22 simvastatin 40 mg tablet (Zocor) 40 mg PO DAILY 90 days #90 tabs 10/29/22 fluticasone furoate 100 1 ea inhalation DAILY 30 days #60 11/04/22 mcg-vilanterol 25 mcg/dose ea inhalation powder (Breo Ellipta) dicyclomine 20 mg tablet 20 mg PO Q8-10H PRN abdominal 12/24/22 pain #20 tabs nitrofurantoin 100 mg PO BID #20 caps 12/24/22 monohydrate/macrocrystals 100 mg capsule (Macrobid) Allergies Allergy/AdvReac Type Severity Reaction Status Date / Time adhesive [ADHESIVE] Allergy Unknown LOCAL Verified 10/16/22 21:22 REACTION Review of Systems Review of Systems: Yes all other systems are reviewed and are negative [facility] Past Medical History Medical History Abnormal colonoscopy (~04/03/22) Age related osteoporosis Anemia Anticoagulant long-term use Asthma, moderate persistent Chronic GERD Diastolic congestive heart failure Establishing care with new doctor, encounter for Generalized anxiety disorder with panic attacks History of ulcerative colitis Hypertension, essential Insomnia Interstitial cystitis Iron deficiency anemia Lipid disorder Major depression, recurrent Osteoarthritis, hip, bilateral Paroxysmal atrial fibrillation Post cardiotomy syndrome PTSD (post-traumatic stress disorder) Right carpal tunnel syndrome Urinary incontinence Wheezing Surgical History History of arthroplasty of both knees History of artificial heart valve History of kyphoplasty Hx of hysterectomy Hx of rotator cuff surgery Status post aortic valve replacement Status post mitral valve replacement Family History Family History Daughter Mental health disorder Substance use disorder Father Emphysema lung Mother Heart disease Stroke Pacemaker Arthritis Family/Other Colon cancer Sister Crohn's disease Social History Social History Household Members: Other Household Members Other:: son Housing: Apartment Are you a primary day care attendant to a significant other at home: No Do you presently have visiting nurse or other home services: No (son is SOFTWARE PACKAGING ENGINEER) Alcohol intake: never Patient Tobacco Use Status: Former Tobacco user Quit Date: 28 yrs ago e-Cigarette/Vaping Use: Never Used Substance Use Type: Marijuana Advance Directives: Yes Advance Directives on File: Yes Advance Directives Date on File: 03/17/22 service: No Current occupational status: retired Cognitive needs: No Hearing needs: No Vision needs: Yes Physical Exam ED Vital Signs: Vital Signs - 24 hr 12/24/22 13:48 12/24/22 18:28 12/24/22 21:03 Temperature 96.5 F L 97.9 F 97.9 F Pulse Rate 45 L 59 60 Respiratory Rate 20 18 17 Blood Pressure 131/50 L 156/62 H 197/87 H Pulse Oximetry 94 95 95 Oxygen Delivery Method Room Air Room Air Room Air BMI result Body Mass Index 40.2 Appearance: Alert. Oriented X3. No acute distress. Eyes: PERRLA, No Nystagmus ENT: Pharynx normal. Oral Mucosa moist Neck: Normal inspection. Neck supple. CVS: Normal heart rate and rhythm. Pulses normal. Respiratory: No respiratory distress. Equal air entry bilateral, no wheezing/rales/rhonchi Abdomen: Soft and nontender. Bowel sounds are present, no mass palpable, no CVA tenderness mild suprapubic discomfort Skin: Skin warm and dry. Normal skin color. Normal skin turgor. Extremities: No lower extremity edema. No calf tenderness Neuro: Oriented X 3. No motor deficit. No sensory deficit.No cerebellar signs , cranial nerves II-XII intact Course Course Course Narrative: This is an RME: Additional HPI, ROS, PE not included below will be deferred to primary provider. This is a 71-year-old female, with a history of severe chronic anemia, multiple transfusion, CHF, recently diagnosed with A. Fib on warfarin, HTN, UC, asthma, interstitial cystitis, diverticulosis, thyroid nodules, ulcerative colitis, multiple polyps presents to ED with complaints of hematuria, shortness of breath, weakness, back pain since yesterday. Son describing as hemorrhaging . Endorsing some suprapubic pain and cramping. Also endorsing diarrhea x 2 weeks. Pt appears pale.VSS Plan:Labs, UA, CXR Medications Administered Discontinued Medications Generic Name Dose Route Start Last Admin Trade Name Freq PRN Reason Stop Dose Admin Sodium Chloride 1,000 mls @ 999 mls/hr 12/24/22 18:48 12/24/22 19:55 Ns IV 12/24/22 19:48 999 mls/hr .Q1H1M ONE Administration Loperamide HCl 2 mg 12/24/22 18:54 12/24/22 19:53 Loperamide Hcl 2 Mg Capsule PO 12/24/22 18:55 2 mg ONCE ONE Administration Nitrofurantoin Macrocrystals 100 mg 12/24/22 18:55 12/24/22 19:53 Nitrofurantoin Monohyd/M-Cryst 100 Mg Capsule PO 12/24/22 18:56 100 mg ONCE ONE Administration Medical Decision Making Medical Decision Making [facility] Narrative: Patient with chronic interstitial cystitis not been followed by urologist as she wants cystoscopy under sedation labs are stable whilst start patient on Macrobid and bentyl advised to follow-up with urology Lab Data MDM Lab Attestation statement: I reviewed the patient's lab results. 12/24/22 14:18 12/24/22 14:18 Labs: Lab Results 12/24/22 12/24/22 12/24/22 Range/Units 14:18 14:18 14:18 WBC 9.2 (4.8-10.8) X10*3/uL RBC 4.48 (4.20-5.50) X10*6/uL Hgb 12.9 (12.0-16.0) g/dl Hct 40.0 (37.0-47.0) % MCV 89.3 (80.0-98.0) fL MCH 28.8 (27.0-33.0) pg MCHC 32.3 (31.0-35.0) g/dl RDW 12.4 (11.0-16.0) % Plt Count 258 (160-400) X10*3/uL MPV 10.2 (9.4-12.3) fL Immature Gran % (Auto) 0.3 (0.0-0.4) % Neut % (Auto) 73.5 H (45-73) % Lymph % (Auto) 16.5 L (20-40) % [place] % (Auto) 6.7 (2-11) % Eos % (Auto) 2.5 (0-4) % Baso % (Auto) 0.5 (0-2) % Lymph # (Auto) 1.5 (1.2-4.9) X10*3/uL [place] # (Auto) 0.6 (0.1-1.2) X10*3/uL Eos # (Auto) 0.2 (0.0-0.4) X10*3/uL Baso # (Auto) 0.1 (0.0-0.2) X10*3/uL Abs Immat Gran (auto) 0.03 (0.00-0.03) X10*3/uL Absolute Neuts (auto) 6.8 (2.0-8.3) x10*3/uL Absolute Nucleated RBC 0.000 (0.0-0.012) X10*3/uL Nucleated RBC % (auto) 0.0 (0.0-0.2) /100WBC PT (11.1-13.3) SEC INR (0.9-1.1) APTT (26.0-36.4) SEC Sodium 133 L (135-145) mmol/L Potassium 4.5 (3.3-5.1) mmol/L Chloride 101 (96-108) mmol/L Carbon Dioxide 21 L (22-29) mmol/L Anion Gap 16 (12-20) BUN 10 (9-16) mg/dL Creatinine 0.83 (0.5-1.4) mg/dL Estim Creat Clear Calc 60.6 Estimated GFR > 60 Random Glucose 119 H (60-115) mg/dL Calcium 9.2 (8.4-10.2) mg/dL Magnesium 2.0 (1.6-2.6) mg/dL Iron 57 (30-160) mcg/dL TIBC 289 (228-428) mcg/dL % Saturation 20 (15-50) % Unsat Iron Binding 232 ug/dL Ferritin 48 (10-250) ng/mL Total Bilirubin 0.3 (0.0-1.0) mg/dL Direct Bilirubin 0.1 (0.0-0.5) mg/dL AST 14 (5-31) U/L ALT 13 (0-31) U/L Alkaline Phosphatase 83 (39-117) U/L Total Protein 6.5 (6.5-8.0) g/dL Albumin 3.9 (3.5-5.0) g/dL Urine Color DK YELLOW Urine Appearance Turbid Urine pH 6.5 (5.0-9.0) Ur Specific [place] 1.015 (1.005-1.025) Urine Protein 100 (2+) H (Neg-Trace) mg/dL Urine Glucose (UA) Negative (Negative) mg/dL Urine Ketones Negative (Negative) mg/dL Urine Blood Large (3+) H (Negative) Urine Nitrite Positive H (Negative) Ur Leukocyte Esterase Moderate (2+) H (Negative) Urine RBC >20 H (0-2) /HPF Urine WBC 11-20 (0-5) /HPF Ur Squamous Epith Cells 0-2 (0-2) /HPF Urine Bacteria 1+ (None Seen) Hyaline Casts 0-2 (0-2) /LPF Blood Type Antibody Screen 12/24/22 12/24/22 Range/Units 14:18 20:20 WBC (4.8-10.8) X10*3/uL RBC (4.20-5.50) X10*6/uL Hgb (12.0-16.0) g/dl Hct (37.0-47.0) % MCV (80.0-98.0) fL MCH (27.0-33.0) pg MCHC (31.0-35.0) g/dl RDW (11.0-16.0) % Plt Count (160-400) X10*3/uL MPV (9.4-12.3) fL Immature Gran % (Auto) (0.0-0.4) % Neut % (Auto) (45-73) % Lymph % (Auto) (20-40) % [place] % (Auto) (2-11) % Eos % (Auto) (0-4) % Baso % (Auto) (0-2) % Lymph # (Auto) (1.2-4.9) X10*3/uL [place] # (Auto) (0.1-1.2) X10*3/uL Eos # (Auto) (0.0-0.4) X10*3/uL Baso # (Auto) (0.0-0.2) X10*3/uL Abs Immat Gran (auto) (0.00-0.03) X10*3/uL Absolute Neuts (auto) (2.0-8.3) x10*3/uL Absolute Nucleated RBC (0.0-0.012) X10*3/uL Nucleated RBC % (auto) (0.0-0.2) /100WBC PT 36.9 H (11.1-13.3) SEC INR 3.0 H (0.9-1.1) APTT 48.3 H D (26.0-36.4) SEC Sodium (135-145) mmol/L Potassium (3.3-5.1) mmol/L Chloride (96-108) mmol/L Carbon Dioxide (22-29) mmol/L Anion Gap (12-20) BUN (9-16) mg/dL Creatinine (0.5-1.4) mg/dL Estim Creat Clear Calc Estimated GFR Random Glucose (60-115) mg/dL Calcium (8.4-10.2) mg/dL Magnesium (1.6-2.6) mg/dL Iron (30-160) mcg/dL TIBC (228-428) mcg/dL % Saturation (15-50) % Unsat Iron Binding ug/dL Ferritin (10-250) ng/mL Total Bilirubin (0.0-1.0) mg/dL Direct Bilirubin (0.0-0.5) mg/dL AST (5-31) U/L ALT (0-31) U/L Alkaline Phosphatase (39-117) U/L Total Protein (6.5-8.0) g/dL Albumin (3.5-5.0) g/dL Urine Color Urine Appearance Urine pH (5.0-9.0) Ur Specific [place] (1.005-1.025) Urine Protein (Neg-Trace) mg/dL Urine Glucose (UA) (Negative) mg/dL Urine Ketones (Negative) mg/dL Urine Blood (Negative) Urine Nitrite (Negative) Ur Leukocyte Esterase (Negative) Urine RBC (0-2) /HPF Urine WBC (0-5) /HPF Ur Squamous Epith Cells (0-2) /HPF Urine Bacteria (None Seen) Hyaline Casts (0-2) /LPF Blood Type O Positive Antibody Screen NEGATIVE Discharge Plan Discharge Clinical Impression: Interstitial cystitis, Chronic anticoagulation, Recurrent UTI Patient Disposition: Home, Self-Care Instructions: Blood Thinners (ED), Interstitial Cystitis (ED), Urinary Tract Infection in Older Adults (ED) Additional Instructions: Continue your medications and antibiotics for UTI Drink plenty of fluids Take Bentyl 1 tablet every 8 hours as needed for abdominal spasm/diarrhea Follow-up with urologist for further management Prescriptions: New dicyclomine 20 mg tablet 20 mg PO Q8-10H PRN (Reason: abdominal pain) Qty: 20 0RF nitrofurantoin monohyd/m-cryst [Macrobid] 100 mg capsule 100 mg PO BID Qty: 20 0RF Rx Instructions: must administer with a meal/food No Action simvastatin [Zocor] 40 mg tablet 40 mg PO DAILY 90 Days Qty: 90 0RF fluticasone furoate-vilanterol [Breo Ellipta] 100-25 mcg/dose blister with device 1 ea inhalation DAILY 30 Days Qty: 60 0RF doxepin 25 mg capsule 1 cap PO BEDTIME lorazepam 1 mg tablet 1 mg PO BID PRN (Reason: Anxiety) torsemide 20 mg tablet 1 tab PO DAILY ferrous sulfate [Feosol] 325 mg (65 mg iron) Tablet 325 mg PO BID Qty: 60 3RF warfarin [Jantoven] 2 mg tablet 4 mg PO DAILY Hold Instructions: Resume on 04/10/22. escitalopram oxalate 5 mg tablet 1 tab PO DAILY dexlansoprazole 60 mg capsule,biphase delayed releas 1 cap PO DAILY albuterol sulfate 2.5 mg /3 mL (0.083 %) solution for nebulization 1 vial inhalation Q4H PRN (Reason: wheezing) vitamin B complex Tablet 1 tab PO DAILY magnesium 250 mg Tablet 250 mg PO DAILY ergocalciferol (vitamin D2) 1,250 mcg (50,000 unit) Capsule 1,250 mcg PO WE Patient Comments: thursday biotin 2,500 mcg Capsule 2,500 mcg PO DAILY losartan [Cozaar] 25 mg tablet 25 mg PO DAILY metoprolol tartrate [Lopressor] 100 mg tablet 100 mg PO BID gabapentin [Neurontin] 100 mg capsule 200 mg PO TID furosemide [Lasix] 40 mg tablet 40 mg PO DAILY escitalopram oxalate [Lexapro] 20 mg tablet 20 mg PO DAILY potassium chloride [K-Tab] 10 mEq tablet extended release 10 meq PO DAILY albuterol sulfate [Ventolin HFA] 90 mcg/actuation HFA aerosol inhaler 2 puff inhalation Q4H PRN (Reason: wheezing) solifenacin [Vesicare] 10 mg tablet 10 mg PO DAILY 90 Days Qty: 90 4RF
[2022-12-24 14:22] LABS: MANUAL DIFF FLAG NO
[2022-12-24 14:26] LABS: Basophils Absolute Auto 0.1 X10*3/uL (0.0-0.2); Basophils Percent Auto 0.5 % (0-2); Eosinophils Absolute Auto 0.2 X10*3/uL (0.0-0.4); Eosinophils Percent Auto 2.5 % (0-4); Hemoglobin 12.9 g/dl (12.0-16.0); Imm Gran Abs Auto 0.03 X10*3/uL (0.00-0.03); Imm Gran Pct Auto 0.3 % (0.0-0.4); Lymphocytes Absolute Auto 1.5 X10*3/uL (1.2-4.9); Lymphocytes Percent Auto 16.5 % (20-40); Mean Corpuscular HGB Conc 32.3 g/dl (31.0-35.0); Mean Corpuscular Hemoglobin 28.8 pg (27.0-33.0); Mean Corpuscular Volume 89.3 fL (80.0-98.0); Mean Platelet Volume 10.2 fL (9.4-12.3); Monocytes Absolute Auto 0.6 X10*3/uL (0.1-1.2); Monocytes Percent Auto 6.7 % (2-11); Neutrophils Absolute Auto 6.8 x10*3/uL (2.0-8.3); Neutrophils Percent Auto 73.5 % (45-73); Platelet Count 258 X10*3/uL (160-400); Red Blood Count 4.48 X10*6/uL (4.20-5.50); Red Cell Distribution Width 12.4 % (11.0-16.0); White Blood Count 9.2 X10*3/uL (4.8-10.8)
[2022-12-24 14:35] LABS: Appearance Urine Turbid; Color Urine DK YELLOW; Glucose Urine UA Negative (Negative); Leukocyte Esterase Urine Moderate (2+) (Negative); Nitrite Urine Positive (Negative); PH 6.5 (5.0-9.0); UMIC TRIGGER UACC YES; Urine Blood Large (3+) (Negative); Urine Ketones Negative (Negative); Urine Protein 100 (2+) mg/dL (Neg-Trace)
[2022-12-24 14:36] LABS: Specific Gravity - Urine 1.015 (1.005-1.025)
[2022-12-24 14:47] LABS: Alanine Aminotransferase 13 U/L (0-31); Albumin Level 3.9 g/dL (3.5-5.0); Alkaline Phosphatase 83 U/L (39-117); Anion Gap 16 (12-20); Aspartate Amino Transferase 14 U/L (5-31); Bilirubin Direct 0.1 mg/dL (0.0-0.5); Bilirubin Total 0.3 mg/dL (0.0-1.0); Blood Urea Nitrogen 10 mg/dL (9-16); Calcium 9.2 mg/dL (8.4-10.2); Carbon Dioxide 21 mmol/L (22-29); Chloride 101 mmol/L (96-108); Creatinine Clr Calc Pharmacy 60.6; Estimated Glomerular Filt Rate > 60; Glucose Random 119 mg/dL (60-115); Iron 57 mcg/dL (30-160); Percent Iron Saturation 20 % (15-50); Potassium 4.5 mmol/L (3.3-5.1); Sodium 133 mmol/L (135-145); Total Iron Binding Capacity 289 mcg/dL (228-428); Total Protein 6.5 g/dL (6.5-8.0); Unsaturated Iron Binding 232 ug/dL
[2022-12-24 14:57] LABS: UACC Culture Trigger YES
[2022-12-24 14:58] LABS: Bacteria Urine 1+ (None Seen); Hyaline Casts Urine 0-2 /LPF (0-2); RBC Urine >20 /HPF (0-2); Squamous Epithelial Cell Urine 0-2 /HPF (0-2)
[2022-12-24 15:01] LABS: Ferritin 48 ng/mL (10-250)
[2022-12-24 18:28] VITALS: BP 156/62; PULSE 59; RESP 18; TEMP 36.6; O2SAT 95
--- NOTE | 2022-12-24 19:12 | MHC.EDTECH ---
LABS ARE DELAYED
[2022-12-24] MEDS: Loperamide HCl 2 MG CAPSULE PO (19:53)
[2022-12-24] MEDS: Nitrofurantoin Monohyd/M-Cryst 100 MG CAPSULE PO (19:53)
[2022-12-24] MEDS: 0.9 % Sodium Chloride 1,000 ML 999 ML IV (19:55)
[2022-12-24 20:47] LABS: Prothrombin Time 36.9 SEC (11.1-13.3)
[2022-12-24 20:50] LABS: Partial Thromboplastin Time 48.3 SEC (26.0-36.4)
[2022-12-24 21:03] VITALS: BP 197/87; PULSE 60; RESP 17; TEMP 36.6; O2SAT 95
== END 2022-12-24 22:26 | disposition home or self-care (01) ==
PROVIDERS: Physician Assistant Medical; Emergency Provider Internal Medicine; PCP Internal Medicine
DX: N30.11 Interstitial cystitis (chronic) with hematuria (principal); K51.90 Ulcerative colitis, unspecified, without complications; D68.318 Other hemorrhagic disorder due to intrinsic circulating anticoagulants, antibodies, or inhibitors; R10.2 Pelvic and perineal pain; Z87.891 Personal history of nicotine dependence; Z79.899 Other long term (current) drug therapy
CPT/HCPCS: 36415; 71046; 80048; 80076; 81001; 82728; 83540; 83735; 85025; 85610; 85730; 86850; 86900; 86901; 87086; 87088; 87186; 96360; 96361; 99283; 99284

== ENCOUNTER 2022-12-31 12:57 | Outpatient (AMB) | payer MEDICARE, MEDICAID, SELFPAY ==
[2022-12-31 13:00] VITALS: BP 122/80; PULSE 52; O2SAT 95; BMI 40.2
--- NOTE | 2022-12-31 13:00 | MHC.PC.OV ---
Vital Signs 12/31/22 13:00 Height 5 ft Weight 206 lb BMI 40.2 BP 122/80 Blood Pressure Location Lt brachial Position Sitting Pulse 52 Pulse Source Pulse Oximeter Pulse Oximetry (%) 95 Oxygen Delivery Method Room Air Intake Visit Reasons: 6 month follow up Intake Note: Pt is here today for 6 months follow up visit. Pt states that she went to [facility] on 12/24/22. Allergies adhesive [ADHESIVE] Allergy (Unknown, Verified 12/31/22 13:03) LOCAL REACTION Medication List - Last Reconciled 12/31/22 by Negrita Bains MD albuterol sulfate 1 vial inhalation Q4H PRN albuterol sulfate 90 mcg/actuation (Ventolin HFA) 2 puffs inhalation Q4H PRN biotin 2,500 mcg PO DAILY dexlansoprazole 1 cap PO DAILY dicyclomine 20 mg PO Q8-10H PRN doxepin 1 cap PO BEDTIME ergocalciferol (vitamin D2) 1,250 mcg PO WE escitalopram oxalate 1 tab PO DAILY escitalopram oxalate (Lexapro) 20 mg PO DAILY ferrous sulfate (Feosol) 325 mg PO BID fluticasone furoate-vilanterol 100-25 mcg/dose (Breo Ellipta) 1 ea inhalation DAILY 30 days furosemide (Lasix) 40 mg PO DAILY gabapentin (Neurontin) 200 mg PO TID lorazepam 1 mg PO BID PRN losartan (Cozaar) 25 mg PO DAILY magnesium 250 mg PO DAILY metoprolol tartrate (Lopressor) 100 mg PO BID nitrofurantoin monohyd/m-cryst 100 mg (Macrobid) 100 mg PO BID potassium chloride ER (K-Tab) 10 mEq PO DAILY simvastatin (Zocor) 40 mg PO DAILY 90 days solifenacin (Vesicare) 10 mg PO DAILY 90 days torsemide 1 tab PO DAILY vitamin B complex 1 tab PO DAILY warfarin (Jantoven) 4 mg PO DAILY Tobacco use date assessed: 12/31/22 Dental Screening Dental Screen Date: 12/31/22 Did you have a dental visit in the last 12 months?: Yes Did you have a dental problem in the last 6 months where you did not have access to dental care?: No Was dental information given to patient?: Patient has dentist HPI 6 month follow up HPI Details Patient is 72-year-old female came in today after emergency room visit Patient was found to have a urinary tract infection, she was treated with antibiotic and she is feeling better. Other providers patient is seeing are Dr. Mercado Cardiology, Patient have mitral valve and aortic valve replaced, atrial fibrillation and is on warfarin Dr. Arriaga [facility], recent H&H is within normal limit patient is on iron supplement once a day Urology [facility] patient have appointment coming for follow-up Dr. Ulices maldonado gastroenterology for ulcerative colitis Dr. Garcia posting specialist Dr. Queen neurosurgery, for chronic back problems [facility] Medical History Abnormal colonoscopy (~04/03/22) Age related osteoporosis Anemia Anticoagulant long-term use Asthma, moderate persistent Chronic GERD Diastolic congestive heart failure Establishing care with new doctor, encounter for Generalized anxiety disorder with panic attacks History of ulcerative colitis Hypertension, essential Insomnia Interstitial cystitis Iron deficiency anemia Lipid disorder Major depression, recurrent Osteoarthritis, hip, bilateral Paroxysmal atrial fibrillation Post cardiotomy syndrome PTSD (post-traumatic stress disorder) Right carpal tunnel syndrome Urinary incontinence Wheezing Surgical History History of arthroplasty of both knees History of artificial heart valve History of kyphoplasty Hx of hysterectomy Hx of rotator cuff surgery Status post aortic valve replacement Status post mitral valve replacement Family History Daughter Mental health disorder Substance use disorder Father Emphysema lung Mother Heart disease Stroke Pacemaker Arthritis Family/Other Colon cancer Sister Crohn's disease Social History Household Members: Other Household Members Other:: son Housing: Apartment Are you a primary day care provider to a significant other at home: No Do you presently have visiting nurse or other home services: No (son is MANAGER [employer]) Alcohol intake: never Patient Tobacco Use Status: Former Tobacco user Quit Date: 28 yrs ago e-Cigarette/Vaping Use: Never Used Substance Use Type: Marijuana Advance Directives Date on File: 03/17/22 service: No Current occupational status: retired Cognitive needs: No Hearing needs: No Vision needs: Yes Questionnaire Thrive Questionnaire Date Thrive assessed: 10/30/21 GUANACO-7 AMB Questionnaire GUANACO-7 Date GUANACO - 7 assessed: 10/30/21 Source: Developed by Drs. Marco Antonio Diaz, Janeth Streeter, Alec Gayle and colleagues, with an educational lizett from [employer]. Review of Systems Const All systems reviewed & are unremarkable except as noted in HPI and below Physical exam (Primary Care) Vital Signs: Last Vital Signs Pulse 52 12/31/22 13:00 BP 122/80 12/31/22 13:00 Pulse Ox 95 12/31/22 13:00 Oxygen Delivery Method Room Air 12/31/22 13:00 BMI result Body Mass Index 40.2 Tobacco/Smoking Status: Tobacco use Status Tobacco use date assessed 12/31/22 12/31/22 13:07 Patient Tobacco Use Status Former Tobacco user 12/31/22 13:07 e-Cigarette/Vaping Use Never Used 12/31/22 13:07 Thrive Assessment: Date of Thrive Assessment Date Thrive assessed 10/30/21 12/31/22 13:07 Const General: no acute distress Orientation/consciousness: patient oriented x3 Eyes General: appearance normal, both eyes and all related structures Resp Effort & Inspection: normal respiratory effort and able to speak in complete sentences Auscultation: clear to auscultation bilaterally Neuro Other: Patient is sitting in wheelchair comfortably General: patient oriented x3 Extrem Other: 1+ pitting edema both ankles Psych Mental Status: mental status grossly normal Assessment and Plan Assessment & Plan (1) Recurrent urinary tract infection: Code(s): N39.0 - Urinary tract infection, site not specified (2) Interstitial cystitis: Code(s): N30.10 - Interstitial cystitis (chronic) without hematuria (3) Ulcerative colitis: Code(s): K51.90 - Ulcerative colitis, unspecified, without complications (4) Chronic anticoagulation: Code(s): Z79.01 - skilled nursing (current) use of anticoagulants (5) Cardiomyopathy: Code(s): I42.9 - Cardiomyopathy, unspecified (6) Paroxysmal atrial fibrillation: Code(s): I48.0 - Paroxysmal atrial fibrillation (7) Aortic valve replaced: Code(s): Z95.2 - Presence of prosthetic heart valve (8) History of mitral valve replacement: Code(s): Z95.2 - Presence of prosthetic heart valve Plan Patient is 72-year-old female came in today after emergency room visit Patient was found to have a urinary tract infection, she was treated with antibiotic and she is feeling better. Other providers patient is seeing are Dr. Mercado Cardiology, Patient have mitral valve and aortic valve replaced, atrial fibrillation and is on warfarin Dr. Arriaga [facility], recent H&H is within normal limit patient is on iron supplement once a day U[facility] patient have appointment coming for follow-up Dr. Elena that gastroenterology for ulcerative colitis Dr. Garcia posting specialist Dr. Queen neurosurgery, for chronic back problems Medications: Changed From dicyclomine 20 mg PO Q8-10H PRN 20 tabs 0RF abdominal pain To dicyclomine 20 mg PO Q8-10H PRN Coding Level of Care Code Est Pt Level 3 (31513) Diagnoses Recurrent urinary tract infection N39.0 Interstitial cystitis N30.10 Ulcerative colitis K51.90 Chronic anticoagulation Z79.01 Cardiomyopathy I42.9 Paroxysmal atrial fibrillation I48.0 Aortic valve replaced Z95.2 History of mitral valve replacement Z95.2
== END 2022-12-31 14:09 | disposition home or self-care (01) ==
PROVIDERS: PCP Internal Medicine; Visit Provider Internal Medicine
DX: N30.10 Interstitial cystitis (chronic) without hematuria (principal); K51.90 Ulcerative colitis, unspecified, without complications; Z79.01 Long term (current) use of anticoagulants; I42.9 Cardiomyopathy, unspecified; I48.0 Paroxysmal atrial fibrillation; Z95.2 Presence of prosthetic heart valve
CPT/HCPCS: 99213

== ENCOUNTER 2023-01-22 14:52 | Outpatient (REF) | payer MEDICARE, MEDICAID, SELFPAY | END 2023-01-22 14:53 | disposition home or self-care (01) | LOC: HO.LNP 14:52 | PROVIDERS: Visit Provider Nurse Practitioner Family | DX: N39.0 Urinary tract infection, site not specified (principal); R32 Unspecified urinary incontinence | CPT/HCPCS: 51798; 81003; 87086; 99212 ==

== ENCOUNTER 2023-01-22 14:52 | Outpatient (AMB) | payer MEDICARE, MEDICAID, SELFPAY ==
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
== END 2023-01-22 16:00 | disposition home or self-care (01) ==
PROVIDERS: PCP Internal Medicine; Visit Provider Nurse Practitioner Family
DX: N30.10 Interstitial cystitis (chronic) without hematuria (principal); R32 Unspecified urinary incontinence
CPT/HCPCS: 99214

== ENCOUNTER 2023-02-22 02:46 | Inpatient (IN) | payer MEDICARE, MEDICAID, SELFPAY ==
[2023-02-22] VITALS (11 sets, daily range): BP systolic 140–199; BP diastolic 66–116; PULSE 50–75; RESP 12–18; TEMP 36.1–36.6; O2SAT 88–100; BMI 42.5
--- NOTE | ~2023-02-22 | CT_ITS ---
EXAMINATION: CT ABDOMEN AND PELVIS WITHOUT CONTRAST CLINICAL INFORMATION: Pain COMPARISON: 04/02/2022 TECHNIQUE: Multidetector volumetric imaging was performed from the superior aspect of the liver through the pubic symphysis. Sagittal and coronal reformatted images were obtained on the technologist's workstation. This CT examination was performed using dose optimization techniques as appropriate, variously including the following: *Automated exposure control *Adjustment of mA and/or kV according to patient size (this includes techniques or standardized protocols for targeted exams where dose is matched to indication/reason for exam; i.e. extremities or head) *Use of iterative reconstruction technique DLP: 913 mGy-cm FINDINGS: LUNG BASES: Suboptimally assessed due to motion artifact. Subsegmental atelectasis versus scarring in the right lower lobe. Coronary artery calcifications are present. LIVER, GALLBLADDER, AND BILIARY TREE: The liver is normal in size, shape, and attenuation. There is a redemonstrated approximately 1 cm hypodensity in the inferior left lobe, favoring a cyst. No biliary ductal dilatation is present. There is suggestion of cholelithiasis. No gallbladder wall thickening or surrounding inflammation. PANCREAS: Unremarkable. SPLEEN: Unremarkable. ADRENAL GLANDS: Unremarkable. KIDNEYS AND URETERS: No hydronephrosis or obstructing calculus bilaterally. BLADDER: Distended without wall thickening. Tiny focus of gas is present anteriorly. GASTROINTESTINAL TRACT: Colonic diverticulosis is noted. The small and large bowel are otherwise unremarkable without evidence of obstruction or pericolonic inflammatory change. The appendix is unremarkable. No free fluid or free air is seen. ABDOMINAL WALL: No significant hernia is appreciated. LYMPH NODES: Unremarkable VASCULAR: Moderately extensive atherosclerotic calcification. PELVIC VISCERA: Patient is status post hysterectomy. OSSEOUS STRUCTURES: Vertebral body cement is present throughout the lumbar spine. Severe compression deformity of T11 and moderate compression deformity of T9 are similar to prior. L1 vertebral body height is maintained. Partial compression deformities of L2, L3, and L5 appear similar to prior. Mild loss of height in L4 is also similar to prior. There is diffuse facet arthropathy of the lumbar spine. No new acute fracture is seen. CT/CT abdomen pelvis wo IV con IMPRESSION: 1. No new acute findings identified in the abdomen/pelvis. 2. Tiny focus of gas in the urinary bladder, which could be due to recent catheterization or potentially cystitis in the proper clinical setting. 3. Suggestion of cholelithiasis. If there is clinical concern for cholecystitis, this would be better assessed with ultrasound. 4. No acute fracture identified. Redemonstrated chronic changes including compression deformities of the thoracolumbar spine as described above.
--- NOTE | ~2023-02-22 | XR_ITS ---
EXAMINATION: XR CHEST CLINICAL INFORMATION: Reason for Exam r/o pulm edema COMPARISON: Chest radiograph 12/24/2022 TECHNIQUE: One view of the chest FINDINGS: Lines and tubes: EKG leads overlie the patient. Surgical anchor in the right humeral head. Median sternotomy wires. Cardiac valve prosthesis. Kyphoplasty material in the upper lumbar spine. Clear lungs. No pleural effusion. No pneumothorax. Unchanged cardiomediastinal silhouette. XR/XR chest 1V IMPRESSION: * Clear lungs.
--- NOTE | ~2023-02-22 | US_ITS ---
EXAMINATION: US VENOUS ULTRASOUND WITH DOPPLER LOWER EXTREMITY, LEFT CLINICAL INFORMATION: Pain COMPARISON: None available. TECHNIQUE: Ultrasound of the deep veins is performed from the hip to the calf with compression sonography and color and pulse Doppler assessment. Spectral analysis with color-flow imaging is performed. FINDINGS: There is normal venous compression and respiratory variation and augmented flow. The visualized common femoral vein, superficial femoral vein, profunda femoral vein, popliteal vein, and the trifurcation region shows no evidence of deep venous thrombosis. There is no significant popliteal fossa cyst. If the patient's symptoms persist, followup ultrasound in 5 days 7 days might be of value to exclude proximal propagation from a non-visualized calf vein. US/US venous duplex LE LT IMPRESSION: No DVT demonstrated in the left lower extremity.
--- NOTE | ~2023-02-22 | CT_ITS ---
EXAMINATION: NONCONTRAST HEAD CT NONCONTRAST CERVICAL SPINE CT INDICATION INFORMATION: Fall on blood thinners COMPARISON: 04/02/2022 TECHNIQUE: Separate noncontrast CT examinations of the head and cervical spine were performed. Coronal head CT images and coronal and sagittal cervical spine images were created at the technologist workstation. DLP: 128 mGy-cm DOSE LOWERING TECHNIQUES: This CT examination was performed using dose optimization techniques as appropriate, variously including the following: - Automated exposure control - Adjustment of mA and/or kV according to patient size (this includes techniques or standardized protocols for targeted exams were dose is matched to indication/reason for exam; i.e. extremities or head) - Use of iterative reconstruction technique FINDINGS: Head: There is no evidence of acute intracranial hemorrhage or territorial infarction. No abnormal mass-effect or midline shift is seen. Ravi to white matter differentiation is well preserved. No extra-axial fluid collections are identified. The ventricles are normal in size. There is mild periventricular white matter hypoattenuation consistent with chronic small vessel ischemic disease. Mild to moderate volume loss is noted. The osseous structures and soft tissues are normal. The mastoid air cells are well-aerated. Status post left mastoidectomy. Cervical spine: There is anatomic alignment of the vertebral bodies and posterior elements. Vertebral body heights are maintained. Moderate multilevel facet arthropathy. There is disc space narrowing and endplate osteophyte formation in the lower cervical spine. No evidence of acute fracture. No prevertebral soft tissue swelling. Visualized portions of the lung apices not well assessed due to motion artifact. The thyroid gland is grossly unremarkable. CT/CT cervical spine wo IV con IMPRESSION: HEAD: No acute intracranial findings. CERVICAL SPINE: No acute findings identified. Degenerative changes as noted above.
--- NOTE | 2023-02-22 02:51 | ECG_ITS ---
Test Reason : FALL Blood Pressure : / mmHG Vent. Rate : 051 BPM Atrial Rate : 051 BPM P-R Int : 192 ms QRS Dur : 154 ms QT Int : 544 ms P-R-T Axes : 043 -50 -14 degrees QTc Int : 501 ms Sinus bradycardia Right bundle branch block Left anterior fascicular block Bifascicular block Abnormal ECG When compared with ECG of 17-MAR-2022 15:07, (RBBB and left anterior fascicular block) is now Present Referred By: Chastity Kirby Electronically Signed By:SUZANNE CARRASCO
[2023-02-22 03:34] LABS: INTERNATIONAL NORM RATIO 2.5 (0.9-1.1); Prothrombin Time 30.2 SEC (11.1-13.3)
--- NOTE | 2023-02-22 03:59 | ED.FALL ---
HPI - Fall General Chief Complaint: Fall Stated Complaint: fall lower back pain Time Seen by Provider: 02/22/23 03:07 Source: patient Mode of arrival: EMS History of Present Illness HPI Narrative: 72-year-old female arrives via EMS after sustaining a mechanical fall and walks with a walker or cane at baseline. Patient states she was up getting a glass of water tripped and fell backwards onto her buttocks, she denies any loss of consciousness but is on blood thinners for proximal atrial fibrillation and has complaints of pain in the back of her head but denies any visual changes. Patient denies any urinary symptoms. Related Data Home Medications Medication Instructions Recorded Confirmed escitalopram oxalate 20 mg tablet 20 mg PO DAILY 10/30/21 02/03/23 (Lexapro) furosemide 40 mg tablet (Lasix) 40 mg PO DAILY 10/30/21 02/03/23 gabapentin 100 mg capsule 200 mg PO TID 10/30/21 02/03/23 (Neurontin) losartan 25 mg tablet (Cozaar) 25 mg PO DAILY 10/30/21 02/03/23 metoprolol tartrate 100 mg tablet 100 mg PO BID 10/30/21 02/03/23 (Lopressor) potassium chloride 10 mEq 10 meq PO DAILY 10/30/21 02/03/23 tablet,extended release (K-Tab) doxepin 25 mg capsule 1 cap PO BEDTIME 11/14/21 02/03/23 lorazepam 1 mg tablet 1 mg PO BID PRN Anxiety 11/14/21 02/03/23 albuterol sulfate 2.5 mg/3 mL 1 vial inhalation Q4H PRN wheezing 03/17/22 02/03/23 (0.083 %) solution for nebulization biotin 2,500 mcg capsule 2,500 mcg PO DAILY 03/17/22 02/03/23 dexlansoprazole 60 mg 1 cap PO DAILY 03/17/22 02/03/23 capsule,biphase delayed release ergocalciferol (vitamin D2) 1,250 1,250 mcg PO WE 03/17/22 02/03/23 mcg (50,000 unit) capsule escitalopram oxalate 5 mg tablet 1 tab PO DAILY 03/17/22 02/03/23 magnesium 250 mg tablet 250 mg PO DAILY 03/17/22 02/03/23 vitamin B complex 1 tab PO DAILY 03/17/22 02/03/23 warfarin 2 mg tablet (Jantoven) 4 mg PO DAILY 03/17/22 02/03/23 torsemide 20 mg tablet 1 tab PO DAILY 07/28/22 02/03/23 albuterol sulfate 90 mcg/actuation 2 puff inhalation Q4H PRN wheezing 10/16/22 02/03/23 aerosol inhaler (Ventolin HFA) dicyclomine 20 mg tablet 20 mg PO Q8-10H PRN abdominal pain 12/31/22 02/03/23 Previous Rx's Medication Instructions Recorded ferrous sulfate 325 mg (65 mg 325 mg PO BID #60 tabs 09/12/22 iron) tablet (Feosol) solifenacin 10 mg tablet (Vesicare) 10 mg PO DAILY 90 days #90 tabs 10/16/22 fluticasone furoate 100 1 ea inhalation DAILY 30 days #60 11/04/22 mcg-vilanterol 25 mcg/dose ea inhalation powder (Breo Ellipta) ascorbic acid (vitamin C) 1,000 mg 1 g PO DAILY 90 days #90 tabs 01/22/23 tablet methenamine hippurate 1 gram tablet 1 g PO DAILY #90 tabs 01/22/23 nitrofurantoin macrocrystal 100 mg 100 mg PO BID 14 days #28 caps 01/22/23 capsule simvastatin 40 mg tablet (Zocor) 40 mg PO DAILY 90 days #90 tabs 01/22/23 Allergies Allergy/AdvReac Type Severity Reaction Status Date / Time adhesive [ADHESIVE] Allergy Unknown LOCAL Verified 01/22/23 20:35 REACTION Review of Systems Review of Systems: Pertinent positives and negatives as stated in HPI [facility] Past Medical History Source: nursing notes reviewed Medical History Abnormal colonoscopy (~04/03/22) Wheezing Anemia Urinary incontinence Right carpal tunnel syndrome Post cardiotomy syndrome PTSD (post-traumatic stress disorder) Osteoarthritis, hip, bilateral Interstitial cystitis Lipid disorder Insomnia Generalized anxiety disorder with panic attacks Major depression, recurrent History of ulcerative colitis Chronic GERD Diastolic congestive heart failure Paroxysmal atrial fibrillation Age related osteoporosis Asthma, moderate persistent Anticoagulant long-term use Iron deficiency anemia Establishing care with new doctor, encounter for Hypertension, essential Surgical History Hx of rotator cuff surgery History of arthroplasty of both knees Hx of hysterectomy Status post mitral valve replacement Status post aortic valve replacement History of kyphoplasty History of artificial heart valve Family History Family History Daughter Mental health disorder Substance use disorder Father Emphysema lung Mother Heart disease Stroke Pacemaker Arthritis Family/Other Colon cancer Sister Crohn's disease Social History Social History Household Members: Other Household Members Other:: son Housing: Apartment Are you a primary primary care physician to a significant other at home: No Do you presently have visiting nurse or other home services: No (son is ASSISTANT SECR[employer]ARY) Alcohol intake: never Patient Tobacco Use Status: Former Tobacco user Quit Date: 28 yrs ago Smoked in Last 30 Days: No e-Cigarette/Vaping Use: Never Used Use of substances other than those prescribed or required for medical reasons: No Substance Use Type: Marijuana Advance Directives: Yes Advance Directives on File: Yes Advance Directives Date on File: 03/17/22 service: No Current occupational status: retired Cognitive needs: No Hearing needs: No Vision needs: Yes Physical Exam Vital Signs: Vital Signs: Last Vital Signs Temp 97.6 F 02/22/23 02:54 Pulse 52 02/22/23 02:54 Resp 16 02/22/23 02:54 BP 170/116 H 02/22/23 02:54 Pulse Ox 89 L 02/22/23 05:09 O2 Del Method Room Air 02/22/23 05:09 BMI result Body Mass Index 42.5 VITAL SIGNS: Reviewed. GENERAL: Well developed, well nourished, in no acute distress. HEAD: Normocephalic/atraumatic EYES: PERRLA, EOMI EARS: Ext canals without abnormality NOSE: Nares patent bilateral OROPHARYNX: no oral lesions noted, posterior pharynx clear, dry mucosa NECK: c-collar in place, no adenopathy LUNGS: Normal breath sounds. No adventitious sounds or accessory muscle use. SpO2<92> CARDIOVASCULAR: Regular rate and rhythm without noted murmurs, no JVD but b/l lower extremity edema L>R ABDOMEN: Soft, non-tender, non-distended with bowel sounds. No rigidity. No guarding. No palpable masses or hernias noted MUSCULOSKELETAL: No tenderness, deformities, or effusions noted on gross inspection. EXTREMITIES: No cyanosis, clubbing or edema. LLE: mild erythema and warmth noted to lower leg b/l feet warm with palable pulses SKIN: Inspection of the skin reveals no rashes NEUROLOGIC: Alert and oriented x 4. Strength and sensation to light touch were grossly intact x 4. Medications Administered Discontinued Medications Generic Name Dose Route Start Last Admin Trade Name Freq PRN Reason Stop Dose Admin Oxycodone HCl 5 mg 02/22/23 04:12 02/22/23 04:25 Oxycodone Hcl Immed Release 5 Mg Tablet PO 02/22/23 04:13 5 mg ONCE ONE Administration Medical Decision Making Medical Decision Making [facility] Narrative: 72F with history and clinical presentation, DDX: Mechanical fall and will rule out infection/anemia/electrolyte abnormality/arrhythmia. I reviewed all investigations and hematologic indices are negative for leukocytosis, there is of mild left shift unclear significance but otherwise no anemia or thrombocytopenia. Coagulation studies demonstrate a therapeutic INR of 2.5. Chemistry studies are negative for MEHDI or electrolyte/liver enzyme abnormalities. Urinalysis appears to be a contaminated specimen but otherwise patient has no urinary complaints. CT of the head negative for intracranial hemorrhage and cervical spine negative for fracture subluxation. On review of CT the abdomen pelvis there are no acute findings, no identify pelvic fractures and lumbar spine appears to be at baseline with chronic compression fractures but no apparent acute fractures. Patient has received 5 mg of oxycodone for pain, C-collar was cleared and she will be otherwise discharged home in stable condition. Patient is declining to ambulate citing pain and inability. Physical therapy and case management consultations were placed she is otherwise cleared for further evaluation. Patient placed in physician observation because the patient needed more time for evaluation by physical therapy and case management. At the time observation was started the patient's vital signs were stable, patient is alert and oriented, neuro: Nonfocal, CV RRR, lungs clear Differential Diagnosis Differential Diagnoses: The differential diagnosis associated with the presentation includes Please see the discussion above Admission/Observation Consideration of admission/observation: Escalation of care including admission/observation considered Please see the discussion above Lab Data [facility] Lab Attestation statement: I reviewed the patient's lab results. Please see the discussion above 02/22/23 04:44 02/22/23 04:44 Labs: Lab Results 02/22/23 02/22/23 Range/Units 03:24 04:44 WBC 9.8 (4.8-10.8) X10*3/uL RBC 4.20 (4.20-5.50) X10*6/uL Hgb 12.1 (12.0-16.0) g/dl Hct 36.9 L (37.0-47.0) % MCV 87.9 (80.0-98.0) fL MCH 28.8 (27.0-33.0) pg MCHC 32.8 (31.0-35.0) g/dl RDW 13.9 (11.0-16.0) % Plt Count 232 (160-400) X10*3/uL MPV 9.7 (9.4-12.3) fL Immature Gran % (Auto) 0.4 (0.0-0.4) % Neut % (Auto) 76.8 H (45-73) % Lymph % (Auto) 12.8 L (20-40) % [place] % (Auto) 7.4 (2-11) % Eos % (Auto) 2.1 (0-4) % Baso % (Auto) 0.5 (0-2) % Lymph # (Auto) 1.3 (1.2-4.9) X10*3/uL [place] # (Auto) 0.7 (0.1-1.2) X10*3/uL Eos # (Auto) 0.2 (0.0-0.4) X10*3/uL Baso # (Auto) 0.1 (0.0-0.2) X10*3/uL Abs Immat Gran (auto) 0.04 H (0.00-0.03) X10*3/uL Absolute Neuts (auto) 7.5 (2.0-8.3) x10*3/uL Absolute Nucleated RBC 0.000 (0.0-0.012) X10*3/uL Nucleated RBC % (auto) 0.0 (0.0-0.2) /100WBC PT 30.2 H (11.1-13.3) SEC INR 2.5 H (0.9-1.1) Sodium 133 L (135-145) mmol/L Potassium 4.8 (3.3-5.1) mmol/L Chloride 96 (96-108) mmol/L Carbon Dioxide 27 (22-29) mmol/L Anion Gap 15 (12-20) BUN 9 (9-16) mg/dL Creatinine 0.93 (0.5-1.4) mg/dL Estim Creat Clear Calc 62.8 Estimated GFR 59 Random Glucose 108 (60-115) mg/dL Calcium 9.4 (8.4-10.2) mg/dL Total Bilirubin 0.4 (0.0-1.0) mg/dL AST 14 (5-31) U/L ALT 10 (0-31) U/L Alkaline Phosphatase 91 (39-117) U/L Total Protein 6.9 (6.5-8.0) g/dL Albumin 4.3 (3.5-5.0) g/dL Urine Color Yellow Urine Appearance Clear Urine pH 7.0 (5.0-9.0) Ur Specific [place] 1.010 (1.005-1.025) Urine Protein Trace (Neg-Trace) mg/dL Urine Glucose (UA) Negative (Negative) mg/dL Urine Ketones Negative (Negative) mg/dL Urine Blood Moderate (2+) H (Negative) Urine Nitrite Negative (Negative) Ur Leukocyte Esterase Moderate (2+) H (Negative) Urine RBC 3-5 H (0-2) /HPF Urine WBC 11-20 H (0-5) /HPF Ur Squamous Epith Cells 6-10 (0-2) /HPF Urine Bacteria Trace (None Seen) Hyaline Casts 0-2 (0-2) /LPF Independent Interpretation I performed an independent interpretation of an: EKG Interpretation: SB, HR-51, no STEMI, RBBB at baseline, MS wnl, QRS-154, QTc-501 Radiology Impression Discussion of test interpretation with radiology: I have reviewed the radiologist's reading. Radiologist Impression: Please see the discussion above External Record Review External record reviewed: Outpatient record, Prior outpatient labs and Prior outpatient radiology Chronic Conditions Patient?s care impacted by: Hypertension and Other CAD Critical Care Time Critical Care Time Critical Care Time: Yes Total Critical Care Time: 30 Attestation: I personally attest to this time spent taking care of the patient. Discharge Plan Discharge Clinical Impression: Accident due to mechanical fall without injury, Chronic anticoagulation Patient Disposition: Still a Patient Prescriptions: No Action fluticasone furoate-vilanterol [Breo Ellipta] 100-25 mcg/dose blister with device 1 ea inhalation DAILY 30 Days Qty: 60 0RF simvastatin [Zocor] 40 mg tablet 40 mg PO DAILY 90 Days Qty: 90 0RF doxepin 25 mg capsule 1 cap PO BEDTIME lorazepam 1 mg tablet 1 mg PO BID PRN (Reason: Anxiety) torsemide 20 mg tablet 1 tab PO DAILY ferrous sulfate [Feosol] 325 mg (65 mg iron) Tablet 325 mg PO BID Qty: 60 3RF warfarin [Jantoven] 2 mg tablet 4 mg PO DAILY Hold Instructions: Resume on 04/10/22. escitalopram oxalate 5 mg tablet 1 tab PO DAILY dexlansoprazole 60 mg capsule,biphase delayed releas 1 cap PO DAILY albuterol sulfate 2.5 mg /3 mL (0.083 %) solution for nebulization 1 vial inhalation Q4H PRN (Reason: wheezing) vitamin B complex Tablet 1 tab PO DAILY magnesium 250 mg Tablet 250 mg PO DAILY ergocalciferol (vitamin D2) 1,250 mcg (50,000 unit) Capsule 1,250 mcg PO WE Patient Comments: thursday biotin 2,500 mcg Capsule 2,500 mcg PO DAILY dicyclomine 20 mg tablet 20 mg PO Q8-10H PRN (Reason: abdominal pain) losartan [Cozaar] 25 mg tablet 25 mg PO DAILY metoprolol tartrate [Lopressor] 100 mg tablet 100 mg PO BID gabapentin [Neurontin] 100 mg capsule 200 mg PO TID furosemide [Lasix] 40 mg tablet 40 mg PO DAILY escitalopram oxalate [Lexapro] 20 mg tablet 20 mg PO DAILY potassium chloride [K-Tab] 10 mEq tablet extended release 10 meq PO DAILY albuterol sulfate [Ventolin HFA] 90 mcg/actuation HFA aerosol inhaler 2 puff inhalation Q4H PRN (Reason: wheezing) solifenacin [Vesicare] 10 mg tablet 10 mg PO DAILY 90 Days Qty: 90 4RF methenamine hippurate 1 gram tablet 1 g PO DAILY Qty: 90 1RF ascorbic acid (vitamin C) 1,000 mg tablet 1 g PO DAILY 90 Days Qty: 90 1RF nitrofurantoin macrocrystal 100 mg capsule 100 mg PO BID 14 Days Qty: 28 0RF Rx Instructions: must administer with a meal/food
[2023-02-22] MEDS: oxyCODONE HCl Immed Release 5 MG TABLET PO ×3 (04:25→19:57)
--- NOTE | 2023-02-22 04:30 | PC.NURSE ---
pt medicated with oxycodone po for severe lower back pain
--- NOTE | 2023-02-22 04:49 | PC.NURSE ---
cervical collar removed per Dr. Kirby
[2023-02-22 04:51] LABS: Basophils Absolute Auto 0.1 X10*3/uL (0.0-0.2); Basophils Percent Auto 0.5 % (0-2); Eosinophils Absolute Auto 0.2 X10*3/uL (0.0-0.4); Eosinophils Percent Auto 2.1 % (0-4); Hematocrit 36.9 % (37.0-47.0); Hemoglobin 12.1 g/dl (12.0-16.0); Imm Gran Abs Auto 0.04 X10*3/uL (0.00-0.03); Imm Gran Pct Auto 0.4 % (0.0-0.4); Lymphocytes Absolute Auto 1.3 X10*3/uL (1.2-4.9); Lymphocytes Percent Auto 12.8 % (20-40); MANUAL DIFF FLAG NO; Mean Corpuscular HGB Conc 32.8 g/dl (31.0-35.0); Mean Corpuscular Hemoglobin 28.8 pg (27.0-33.0); Mean Corpuscular Volume 87.9 fL (80.0-98.0); Mean Platelet Volume 9.7 fL (9.4-12.3); Monocytes Absolute Auto 0.7 X10*3/uL (0.1-1.2); Monocytes Percent Auto 7.4 % (2-11); Neutrophils Absolute Auto 7.5 x10*3/uL (2.0-8.3); Neutrophils Percent Auto 76.8 % (45-73); Platelet Count 232 X10*3/uL (160-400); Red Cell Distribution Width 13.9 % (11.0-16.0); White Blood Count 9.8 X10*3/uL (4.8-10.8)
[2023-02-22 04:52] LABS: Appearance Urine Clear; Color Urine Yellow; Glucose Urine UA Negative (Negative); Leukocyte Esterase Urine Moderate (2+) (Negative); Nitrite Urine Negative (Negative); UMIC TRIGGER UACC YES; Urine Blood Moderate (2+) (Negative); Urine Ketones Negative (Negative); Urine Protein Trace mg/dL (Neg-Trace)
[2023-02-22 05:06] LABS: Alanine Aminotransferase 10 U/L (0-31); Albumin Level 4.3 g/dL (3.5-5.0); Alkaline Phosphatase 91 U/L (39-117); Anion Gap 15 (12-20); Aspartate Amino Transferase 14 U/L (5-31); Bilirubin Total 0.4 mg/dL (0.0-1.0); Blood Urea Nitrogen 9 mg/dL (9-16); Calcium 9.4 mg/dL (8.4-10.2); Carbon Dioxide 27 mmol/L (22-29); Chloride 96 mmol/L (96-108); Creatinine Clr Calc Pharmacy 62.8; Estimated Glomerular Filt Rate 59; Glucose Random 108 mg/dL (60-115); Potassium 4.8 mmol/L (3.3-5.1); Sodium 133 mmol/L (135-145); Total Protein 6.9 g/dL (6.5-8.0)
[2023-02-22 05:10] LABS: Bacteria Urine Trace (None Seen); Hyaline Casts Urine 0-2 /LPF (0-2); UACC Culture Trigger YES
--- NOTE | 2023-02-22 05:10 | PC.NURSE ---
pt 88-89 % on room air, HOB elevated on placed on 2 liters of oxygen NC
[2023-02-22 05:48] LABS: B Type Natriuretic Peptide 1077 pg/mL (<100)
--- NOTE | 2023-02-22 05:49 | PC.NURSE ---
pt reported she was unable to get oob aware
[2023-02-22] MEDS: Furosemide 100 MG/10 ML VIAL 60 MG IVPUSH (06:22)
--- NOTE | 2023-02-22 07:27 | PHA.MEDREC ---
Pharmacy Consult ? Medication Reconciliation Pharmacy has reviewed the medication reconciliation done by the RN.
--- NOTE | 2023-02-22 09:06 | MHC.EDTECH ---
Upon arrival to shift at 0700 purewick output 900ml in canister. Emptied canister with total of urine output at 1250ml at 0900.
--- NOTE | 2023-02-22 09:34 | PC.NURSE ---
pt severely lethargic, unable to stay awake. reporting pain but unable to say where her pain is located. cannot safely administer medications at this time. Sanaz BARRAGAN made aware of pt ? change in presentation, sanaz BARRAGAN assessing pt at bedside. BP elevated. PERRL. able to state that she is at [facility]. unable to answer when her birthday is d/t falling back asleep.
--- NOTE | 2023-02-22 09:49 | PC.NURSE ---
Addendum entered by Olesya Kasper RN 02/22/23 12:56: call placed to son to inform him of plan of care niko Original Note: spoke with pts son, [place] [phone] pt has fallen 3 times in three weeks. son prefers [facility] in [place]. Son is only family member who is a support for mom. Son currently in [place] for work, uses walker when out of home.
[2023-02-22] MEDS: Torsemide 20 MG TABLET PO (12:24)
[2023-02-22] MEDS: Metoprolol Tartrate 100 MG TABLET PO ×2 (12:25→20:01)
[2023-02-22] MEDS: Atorvastatin Calcium 20 MG TABLET PO (12:25)
[2023-02-22] MEDS: Losartan Potassium 25 MG TABLET PO (12:25)
[2023-02-22] MEDS: Escitalopram Oxalate 5 MG TABLET PO (12:25)
[2023-02-22] MEDS: Gabapentin 100 MG CAPSULE 200 MG PO ×2 (12:25→20:00)
[2023-02-22] MEDS: Furosemide 40 MG TABLET PO (12:25)
[2023-02-22] MEDS: Escitalopram Oxalate 20 MG TABLET PO (12:26)
--- NOTE | 2023-02-22 12:56 | PC.NURSE ---
pt more awake and alert, assist with bed change, incont large amount of urine. pt coughing. pt reports it is a dry cough, lungs sounds were wheezy in upper lobes, lower lowers slightly diminished. ambulation trail done, pt able to stand at bedside, O2 dropped to 88% on RA. assist btb. LAUREL Yo at bedside for trial, plans to admit pt. meds given per JUL, now that pt it awake/alert and able to answer questions.
--- NOTE | 2023-02-22 12:57 | P.HPHOSP_ITS ---
History of Present Illness Date of Service: 02/22/23 <LAUREL Joyner - Last Filed: 02/22/23 14:41> Attending physician on admission: Gavino Buchanan <LAUREL Joyner - Last Filed: 02/22/23 14:41> Chief Complaint: Fall at home, SOB <LAUREL Joyner - Last Filed: 02/22/23 14:41> Pt is a 72-year-old female with a PMH significant for?HFpEF, paroxysmal AFib on warfarin, moderate persistent asthma, ulcerative colitis, HLD, HTN, bioprosthetic aortic and mitral valve replacement, and chronic back pain w/ 5 kyphoplasties who presents to the ED for evaluation of mechanical fall at home. Patient lives by herself and ambulates with a cane and walker at baseline. Patient reports getting up to go to the kitchen to get a drink when she tripped and fell, landing on her backside. Patient denies LOC or head strike, but is on Coumadin for AFib. Imaging in ED of CXR, and CT of head, cervical spine, and abdomen and pelvis negative for acute fracture. Patient was initially placed in physician observation for further evaluation by Physical therapy and Case Management. While in observation pt was noted to be more lethargic, appearing SOB, tachypneic, had an elevated BNP, and found to be desatting into the low 80s on RA with minimal exertion. Pt was then referred for inpatient admission. Patient reports and she has been falling at home ?a lot?, at least 6 times. In the past 2 years and twice in the past month. States these are ?trip? falls and I due to imbalance or lightheadedness or dizziness. Patient continues to endorse sacral and lower back pain. Patient also has been experiencing increased shortness of breath and difficulty breathing the past week or so. Has also noticed increased lower leg edema. Patient admits she has not been taking her diuretics at home for at least the past 2 weeks said she has been in a lot of pain and has not wanted to get up and down from sitting in order to urinate. Patient also states she has been experiencing bladder pain for at least the past month and has had history of recurrent UTIs. Has established care with a new urologist and has scheduled an upcoming cystoscopy. In the ED patient was afebrile is, but hypertensive up to 199/111, satting as low at 88% on RA.. Labs were significant for BNP 1077 (above baseline), otherwise largely unremarkable. Stable H&H of 12.1/36.9. Electrolytes largely WNL. Renal, hepatic function WNL. CXR showed clear lungs without pleural effusions or pneumothorax. CT?of head showed no acute intracranial findings. CT of cervical spine found no acute findings though with some degenerative changes. CT of abdomen and pelvis found no new acute findings. Did find tiny focus of gas in the urinary bladder of could be due to recent catheterization or possible cystitis, suggestion of cholelithiasis, and no acute fracture. EKG demonstrated sinus bradycardia of 51 with right bundle branch block and nonspecific T-wave inversions similar to previous. Pt was treated with oxycodone, IV Lasix, and home meds. Pt will be admitted to the hospital for treatment further evaluation of acute hypoxic respiratory failure in the setting of HFpEF exacerbation likely secondary to medication noncompliance. <LAUREL Joyner - Last Filed: 02/22/23 14:41> Pt is a 72-year-old female with a PMH significant for?HFpEF, paroxysmal AFib on warfarin, moderate persistent asthma, ulcerative colitis, HLD, HTN, bioprosthetic aortic and mitral valve replacement, and chronic back pain w/ 5 kyphoplasties who presents to the ED for evaluation of mechanical fall at home. Patient lives by herself and ambulates with a cane and walker at baseline. Patient reports getting up to go to the kitchen to get a drink when she tripped and fell, landing on her backside. Patient denies LOC or head strike, but is on Coumadin for AFib. Imaging in ED of CXR, and CT of head, cervical spine, and abdomen and pelvis negative for acute fracture. Patient was initially placed in physician observation for further evaluation by Physical therapy and Case Management. While in observation pt was noted to be more lethargic, appearing SOB, tachypneic, had an elevated BNP, and found to be desatting into the low 80s on RA with minimal exertion. Pt was then referred for inpatient admission. Patient reports and she has been falling at home ?a lot?, at least 6 times. In the past 2 years and twice in the past month. States these are ?trip? falls and I due to imbalance or lightheadedness or dizziness. Patient continues to endorse sacral and lower back pain. Patient also has been experiencing increased shortness of breath and difficulty breathing the past week or so. Has also noticed increased lower leg edema. Patient admits she has not been taking her diuretics at home for at least the past 2 weeks said she has been in a lot of pain and has not wanted to get up and down from sitting in order to urinate. Patient also states she has been experiencing bladder pain for at least the past month and has had history of recurrent UTIs. Has established care with a new urologist and has scheduled an upcoming cystoscopy. In the ED patient was afebrile is, but hypertensive up to 199/111, satting as low at 88% on RA.. Labs were significant for BNP 1077 (above baseline), otherwise largely unremarkable. Stable H&H of 12.1/36.9. Electrolytes largely WNL. Renal, hepatic function WNL. CXR showed clear lungs without pleural effusions or pneumothorax. CT?of head showed no acute intracranial findings. CT of cervical spine found no acute findings though with some degenerative changes. CT of abdomen and pelvis found no new acute findings. Did find tiny focus of gas in the urinary bladder of could be due to recent catheterization or possible cystitis, suggestion of cholelithiasis, and no acute fracture. EKG demonstrated sinus bradycardia of 51 with right bundle branch block and nonspecific T-wave inversions similar to previous. Pt was treated with oxycodone, IV Lasix, and home meds. Pt will be admitted to the hospital for treatment further evaluation of acute hypoxic respiratory failure in the setting of HFpEF exacerbation likely secondary to medication noncompliance. <Gavino Buchanan MD - Last Filed: 02/23/23 11:27> Review of Systems 2 Review of Systems: Mechanical fall at home Sacral and lower back pain Increased shortness of breath, CHANDRA Increased lower leg edema Denies chest pain/pressure, palpitations No fever, chills, N/V, abdominal pain <LAUREL Joyner - Last Filed: 02/22/23 14:41> [facility] Medical History: Medical History Abnormal colonoscopy (~04/03/22) Wheezing Anemia Urinary incontinence Right carpal tunnel syndrome Post cardiotomy syndrome PTSD (post-traumatic stress disorder) Osteoarthritis, hip, bilateral Interstitial cystitis Lipid disorder Insomnia Generalized anxiety disorder with panic attacks Major depression, recurrent History of ulcerative colitis Chronic GERD Diastolic congestive heart failure Paroxysmal atrial fibrillation Age related osteoporosis Asthma, moderate persistent Anticoagulant long-term use Iron deficiency anemia Establishing care with new doctor, encounter for Hypertension, essential <LAUREL Joyner - Last Filed: 02/22/23 14:41> Family History: Family History Daughter Mental health disorder Substance use disorder Father Emphysema lung Mother Heart disease Stroke Pacemaker Arthritis Family/Other Colon cancer Sister Crohn's disease <LAUREL Joyner - Last Filed: 02/22/23 14:41> Surgical History: Surgical History Hx of rotator cuff surgery History of arthroplasty of both knees Hx of hysterectomy Status post mitral valve replacement Status post aortic valve replacement History of kyphoplasty History of artificial heart valve <LAUREL Joyner - Last Filed: 02/22/23 14:41> Social History: Social History Household Members: Children Household Members Other:: son Housing: Apartment Are you a primary wound care nurse to a significant other at home: No Do you presently have visiting nurse or other home services: No Alcohol intake: never Patient Tobacco Use Status: Former Tobacco user Quit Date: 28 yrs ago Smoked in Last 30 Days: No e-Cigarette/Vaping Use: Never Used Use of substances other than those prescribed or required for medical reasons: No Substance Use Type: Marijuana Currently Displaying Signs/Symptoms of Drug Intoxication Withdrawal: No Have you been hit, kicked, punched, or otherwise hurt by someone within the past year? If so, by whom?: No Do you feel safe in your current relationship?: No Is there a partner from a previous relationship who is making you feel unsafe now?: No Are you made to feel afraid or neglected: No Advance Directives: Yes Advance Directives on File: Yes Advance Directives Date on File: 03/17/22 Do you have thoughts of harming others: None Do you have a plan to hurt others: No Plan Recently lost weight without trying: No Nutrition Risks: No Nutritional Risk Patient : No : No service: No Current occupational status: retired Cognitive needs: No Hearing needs: No Vision needs: Yes <LAUREL Joyner - Last Filed: 02/22/23 14:41> Meds Allergies/Adverse reactions: Allergies Allergy/AdvReac Type Severity Reaction Status Date / Time adhesive [ADHESIVE] Allergy Unknown LOCAL Verified 01/22/23 20:35 REACTION <LAUREL Joyner - Last Filed: 02/22/23 14:41> Active Medications: Current Medications Albuterol Sulfate (Albuterol Sulfate (0.083%) 2.5 Mg/3 Ml Vial.Neb) 2.5 mg INHALE RQ4H PRN PRN Reason: wheezing Albuterol Sulfate (Albuterol Sulfate 90 Mcg 8 Gm Inhaler) 2 puff INHALE RQ4H PRN PRN Reason: wheezing Ascorbic Acid (Ascorbic Acid 500 Mg Tablet) 1,000 mg PO DAILY [facility] Last Admin: 02/22/23 09:36 Dose: Not Given Atorvastatin Calcium (Atorvastatin Calcium 20 Mg Tablet) 20 mg PO DAILY [facility] Last Admin: 02/22/23 12:25 Dose: 20 mg Cefuroxime Axetil (Cefuroxime Axetil 250 Mg Tablet) 250 mg PO Q12H JENNIFER Stop: 03/01/23 09:29 Last Admin: 02/22/23 12:25 Dose: 250 mg Dicyclomine HCl (Dicyclomine Hcl 10 Mg Capsule) 20 mg PO Q8H PRN PRN Reason: abdominal pain Doxepin HCl (Doxepin Hcl 25 Mg Capsule) 25 mg PO BEDTIME [facility] Ergocalciferol (Ergocalciferol (Vitamin D2) 1,250 Mcg Capsule) 1,250 mcg PO [facility] Escitalopram Oxalate (Escitalopram Oxalate 5 Mg Tablet) 5 mg PO DAILY [facility] Last Admin: 02/22/23 12:25 Dose: 5 mg Escitalopram Oxalate (Escitalopram Oxalate 20 Mg Tablet) 20 mg PO DAILY [facility] Last Admin: 02/22/23 12:26 Dose: 20 mg Ferrous Sulfate (Ferrous Sulfate 324 Mg Tablet.Dr) 324 mg PO BID [facility] Last Admin: 02/22/23 09:36 Dose: Not Given Fluticasone/Vilanterol (Fluticasone/Vilanterol 100/25 Blst.W.Dev) 1 puff INHALE DAILY [facility] Last Admin: 02/22/23 10:59 Dose: Not Given Furosemide (Furosemide 40 Mg Tablet) 40 mg PO DAILY [facility]; Protocol Last Admin: 02/22/23 12:25 Dose: 40 mg Gabapentin (Gabapentin 100 Mg Capsule) 200 mg PO TID [facility] Last Admin: 02/22/23 12:25 Dose: 200 mg Lorazepam (Lorazepam 1 Mg Tablet) 1 mg PO BID PRN PRN Reason: Anxiety Losartan Potassium (Losartan Potassium 25 Mg Tablet) 25 mg PO DAILY [facility]; Protocol Last Admin: 02/22/23 12:25 Dose: 25 mg Magnesium Oxide (Magnesium Oxide 400 Mg Tablet) 200 mg PO DAILY [facility] Last Admin: 02/22/23 09:36 Dose: Not Given Methenamine Hippurate (Methenamine Hippurate 1 Gm Tablet) 1 gm PO DAILY [facility] Last Admin: 02/22/23 09:37 Dose: Not Given Metoprolol Tartrate (Metoprolol Tartrate 100 Mg Tablet) 100 mg PO BID [facility]; Protocol Last Admin: 02/22/23 12:25 Dose: 100 mg Multivitamins/Vitamin C (Multivitamin Tablet) 1 tab PO DAILY [facility] Last Admin: 02/22/23 09:37 Dose: Not Given Omeprazole (Omeprazole 40 Mg Capsule.Dr) 40 mg PO DAILY@0630 [facility] Last Admin: 02/22/23 09:37 Dose: Not Given Potassium Chloride (Potassium Chloride Er 10 Meq Tablet.Er) 10 meq PO DAILY [facility] Last Admin: 02/22/23 09:37 Dose: Not Given Tolterodine Tartrate (Tolterodine Tartrate La 4 Mg Cap.Er.24h) 4 mg PO DAILY [facility] Last Admin: 02/22/23 09:37 Dose: Not Given Torsemide (Torsemide 20 Mg Tablet) 20 mg PO DAILY [facility]; Protocol Last Admin: 02/22/23 12:24 Dose: 20 mg Warfarin Sodium (Warfarin Sodium 4 Mg Tablet) 4 mg PO DAILY@1800 [facility] <LAUREL Joyner - Last Filed: 02/22/23 14:41> Home medications: Home Medications Medication Instructions Recorded Confirmed Last Taken Type escitalopram oxalate 20 mg tablet 20 mg PO DAILY 10/30/21 02/22/23 02/21/23 08:00 History (Lexapro) furosemide 40 mg tablet (Lasix) 40 mg PO DAILY 10/30/21 02/22/23 02/21/23 08:00 History gabapentin 100 mg capsule 200 mg PO TID 10/30/21 02/22/23 02/21/23 08:00 History (Neurontin) losartan 25 mg tablet (Cozaar) 25 mg PO DAILY 10/30/21 02/22/23 02/21/23 08:00 History metoprolol tartrate 100 mg tablet 100 mg PO BID 10/30/21 02/22/23 02/21/23 08:00 History (Lopressor) potassium chloride 10 mEq 10 meq PO DAILY 10/30/21 02/22/23 02/21/23 08:00 History tablet,extended release (K-Tab) doxepin 25 mg capsule 1 cap PO BEDTIME 11/14/21 02/22/23 02/21/23 22:00 History lorazepam 1 mg tablet 1 mg PO BID PRN Anxiety 11/14/21 02/22/23 Unknown History albuterol sulfate 2.5 mg/3 mL 1 vial inhalation Q4H PRN wheezing 03/17/22 02/22/23 02/21/23 08:00 History (0.083 %) solution for nebulization biotin 2,500 mcg capsule 2,500 mcg PO DAILY 03/17/22 02/22/23 02/21/23 08:00 History dexlansoprazole 60 mg 1 cap PO DAILY 03/17/22 02/22/23 02/21/23 08:00 History capsule,biphase delayed release ergocalciferol (vitamin D2) 1,250 1,250 mcg PO WE 03/17/22 02/22/23 02/21/23 08:00 History mcg (50,000 unit) capsule escitalopram oxalate 5 mg tablet 1 tab PO DAILY 03/17/22 02/22/23 02/21/23 08:00 History magnesium 250 mg tablet 250 mg PO DAILY 03/17/22 02/22/23 02/21/23 08:00 History vitamin B complex 1 tab PO DAILY 03/17/22 02/22/23 02/21/23 08:00 History warfarin 2 mg tablet (Jantoven) 4 mg PO DAILY 03/17/22 02/22/23 02/21/23 08:00 History torsemide 20 mg tablet 1 tab PO DAILY 07/28/22 02/22/23 02/21/23 08:00 History albuterol sulfate 90 mcg/actuation 2 puff inhalation Q4H PRN wheezing 10/16/22 02/22/23 02/21/23 08:00 History aerosol inhaler (Ventolin HFA) <LAUREL Joyner - Last Filed: 02/22/23 14:41> Physical Exam 2 Vital Signs and Narrative: Vital Signs: Last Vital Signs Temp 98 F 02/22/23 10:19 Pulse 54 02/22/23 10:19 Resp 17 02/22/23 10:19 BP 190/107 H 02/22/23 10:19 Pulse Ox 88 L 02/22/23 12:23 O2 Del Method Room Air 02/22/23 12:23 O2 Flow Rate 2 02/22/23 06:24 BMI result Body Mass Index 42.5 <LAUREL Joyner - Last Filed: 02/22/23 14:41> Constitutional: Alert, in no acute distress. Mental Status: Oriented to person, place and time. Eyes: Pupils are equal, round, and reactive to light. Ear, Nose, and Throat: Oropharynx clear, mucous membranes moist. Ears and nose without deformities. Trachea midline. Respiratory: Clear to auscultation bilaterally. No wheezing, rales, or rhonchi. Cardiovascular: S1, S2 regular. No murmurs, rubs, or gallops. Gastrointestinal: Abdomen soft, non-tender, non-distended. Normal bowel sounds. Neurologic: Cranial nerves II-XII are grossly intact bilaterally. No focal neurological deficits. Moves all extremities spontaneously. Global weakness though more noticeable in legs. Skin: No rashes or lesions noted. Musculoskeletal: No cyanosis or clubbing. Extremities: 1+ bilateral pitting edema. Psychiatric: Normal mood and affect. <LAUREL Joyner - Last Filed: 02/22/23 14:41> Results Labs CBC and Chem 7: 02/23/23 06:06 02/23/23 06:06 <LAUREL Joyner - Last Filed: 02/22/23 14:41> Labs: Laboratory Results - last 24 hr 02/22/23 02/22/23 03:24 04:44 MCV 87.9 MCH 28.8 MCHC 32.8 RDW 13.9 Plt Count 232 MPV 9.7 Immature Gran % (Auto) 0.4 Neut % (Auto) 76.8 H Lymph % (Auto) 12.8 L [place] % (Auto) 7.4 Eos % (Auto) 2.1 Baso % (Auto) 0.5 Lymph # (Auto) 1.3 [place] # (Auto) 0.7 Eos # (Auto) 0.2 Baso # (Auto) 0.1 Abs Immat Gran (auto) 0.04 H Absolute Neuts (auto) 7.5 Absolute Nucleated RBC 0.000 Nucleated RBC % (auto) 0.0 PT 30.2 H INR 2.5 H Anion Gap 15 Estim Creat Clear Calc 62.8 Estimated GFR 59 Random Glucose 108 Calcium 9.4 Total Bilirubin 0.4 AST 14 ALT 10 Alkaline Phosphatase 91 B-Natriuretic Peptide 1077 H Total Protein 6.9 Albumin 4.3 Urine Color Yellow Urine Appearance Clear Urine pH 7.0 Ur Specific [place] 1.010 Urine Protein Trace Urine Glucose (UA) Negative Urine Ketones Negative Urine Blood Moderate (2+) H Urine Nitrite Negative Ur Leukocyte Esterase Moderate (2+) H Urine RBC 3-5 H Urine WBC 11-20 H Ur Squamous Epith Cells 6-10 Urine Bacteria Trace Hyaline Casts 0-2 <LAUREL Joyner - Last Filed: 02/22/23 14:41> Imaging Radiologist's Impressions: Impressions Abdomen/Pelvis CT 02/22/23 04:00 IMPRESSION: 1. No new acute findings identified in the abdomen/pelvis. 2. Tiny focus of gas in the urinary bladder, which could be due to recent catheterization or potentially cystitis in the proper clinical setting. 3. Suggestion of cholelithiasis. If there is clinical concern for cholecystitis, this would be better assessed with ultrasound. 4. No acute fracture identified. Redemonstrated chronic changes including compression deformities of the thoracolumbar spine as described above. Cervical Spine CT 02/22/23 04:00 IMPRESSION: HEAD: No acute intracranial findings. CERVICAL SPINE: No acute findings identified. Degenerative changes as noted above. Head CT 02/22/23 04:00 IMPRESSION: HEAD: No acute intracranial findings. CERVICAL SPINE: No acute findings identified. Degenerative changes as noted above. Chest X-Ray 02/22/23 12:28 IMPRESSION: * Clear lungs. <LAUREL Joyner - Last Filed: 02/22/23 14:41> Assessment and Plan (1) Acute heart failure with preserved ejection fraction (HFpEF): Status: Acute <LAUREL Joyner - Last Filed: 02/22/23 14:41> Pt is a 72-year-old female with a PMH significant for?HFpEF, paroxysmal AFib on warfarin, moderate persistent asthma, ulcerative colitis, HLD, HTN, bioprosthetic aortic and mitral valve replacement, and chronic back pain w/ 5 kyphoplasties who presents to the ED for evaluation of mechanical fall at home. Pt will be admitted to the hospital for treatment further evaluation of acute hypoxic respiratory failure in the setting of HFpEF exacerbation likely secondary to medication noncompliance. Acute hypoxic respiratory failure in the setting of acute HFpEF exacerbation Likely secondary to medication noncompliance; patient states she has not been taking her diuretics for the past few weeks Pt desatting as low as 80% with minimal exertion Pt with elevated BNP, increased SOB, CHANDRA, pitting lower leg edema Furosemide 40 mg IV b.i.d. Follow lytes, MG, I/O Daily weights, low-salt diet Titrate supplemental O2>92, wean as tolerated Monitor on telemetry Hx of recent falls Pt reports multiple mechanical falls at home in past two years, two in past month Walks with cane and walker at baseline Imaging in ED negative for acute fracture or subluxation PT/OT evaluation Oxycodone 5 mg Q 4 p.r.n. Question of UTI UA questionable for UTI Started on cefuroxime in the ED, continue with end date of 03/01/2023 Follow cultures Bladder pain Pt established with urology, scheduled for outpatient cystoscopy F/U outpatient with urology Paroxysmal AFib Continue metoprolol, warfarin HLD Continue statin Moderate persistent asthma Not in acute exacerbation Continue home inhalers Obesity class III Weight loss encouraged DNR/DNI Attending:?Dr. Buchanan DVT Prophylaxis: On warfarin Pt will require a hospitalization of at least two nights for treatment of?acute hypoxic respiratory failure in the setting of HFpEF requiring IV diuretics, PT evaluation, and close monitoring. <LAUREL Joyner Last Filed: 02/22/23 14:41> Time Spent With Patient Time: Total time managing care of this patient today ____ minutes. <LAUREL Joyner Last Filed: 02/22/23 14:41> Quality Stroke Does the patient have a stroke diagnosis?: No <LAUREL Joyner Last Filed: 02/22/23 14:41> VTE Prior VTE?: No <LAUREL Joyner - Last Filed: 02/22/23 14:41> VTE Risk Level:: Medical - moderate - high <LAUREL Joyner - Last Filed: 02/22/23 14:41> VTE Device Contraindication: Treatment Not Indicated <LAUREL Joyner - Last Filed: 02/22/23 14:41> VTE Drug Contraindication: N/A - Med Ordered <LAUREL Joyner - Last Filed: 02/22/23 14:41>
[2023-02-22 13:12] LABS: VBG Base Excess 8.4 mmol/L; VBG HCO3 29 mmol/L (22-26); VBG pCO2 29 mmHg; VBG pO2 221 mmHg
[2023-02-22 13:13] LABS: Venous Blood Gas Refer to POC result
[2023-02-22 13:14] LABS: VBG pH 7.61 (7.32-7.43)
--- NOTE | 2023-02-22 15:06 | MHC.CM.PN ---
Met w/pt in ED to discuss d/c needs: initially pt was an ED consult, however, she is being admitted for HF exacerbation. Pt resides alone but has daily care provided by her son/HCP [place]. He assists w/transportation (although pt continues to drive) and any other need pt may have. He is currently out of state for work with an unknown return date. Pt has no services at present and has a walker but doesn't use it regularly. Pt may need STR and would benefit from a PT eval once medically stable and HF managed. Pt declines STR and VNA at this time but will likely require some post acute care. HCP on file: IMM completed: CM to follow.
[2023-02-22] MEDS: 0.9 % Sodium Chloride Flush 3 ML SYRINGE IVFLUSH ×2 (17:32→19:58)
--- NOTE | 2023-02-22 18:07 | PC.NURSE ---
pt remains lethargic this afternoon, starts to answer questions the falls asleep.
[2023-02-22] MEDS: Furosemide 40 MG/4 ML VIAL IVPUSH (19:37)
[2023-02-22] MEDS: Warfarin Sodium 4 MG TABLET PO (19:38)
[2023-02-22] MEDS: LORazepam 1 MG TABLET PO (19:57)
[2023-02-22] MEDS: Doxepin HCl 25 MG CAPSULE PO (20:00)
[2023-02-22] MEDS: Ferrous Sulfate 324 MG TABLET.DR PO (20:00)
[2023-02-23 03:23] VITALS: BP 144/67; PULSE 56; RESP 18; TEMP 36.1; O2SAT 95
[2023-02-23] MEDS: Omeprazole 40 MG CAPSULE.DR PO (06:01)
[2023-02-23 06:34] LABS: MANUAL DIFF FLAG NO
[2023-02-23 06:36] LABS: Basophils Absolute Auto 0.1 X10*3/uL (0.0-0.2); Basophils Percent Auto 0.5 % (0-2); Eosinophils Absolute Auto 0.3 X10*3/uL (0.0-0.4); Eosinophils Percent Auto 3.4 % (0-4); Hematocrit 37.9 % (37.0-47.0); Imm Gran Abs Auto 0.05 X10*3/uL (0.00-0.03); Imm Gran Pct Auto 0.5 % (0.0-0.4); Lymphocytes Absolute Auto 1.5 X10*3/uL (1.2-4.9); Lymphocytes Percent Auto 15.5 % (20-40); Mean Corpuscular HGB Conc 31.7 g/dl (31.0-35.0); Mean Corpuscular Hemoglobin 28.2 pg (27.0-33.0); Mean Corpuscular Volume 89.2 fL (80.0-98.0); Mean Platelet Volume 9.7 fL (9.4-12.3); Monocytes Absolute Auto 0.8 X10*3/uL (0.1-1.2); Monocytes Percent Auto 8.4 % (2-11); Neutrophils Absolute Auto 6.9 x10*3/uL (2.0-8.3); Neutrophils Percent Auto 71.7 % (45-73); Platelet Count 239 X10*3/uL (160-400); Red Blood Count 4.25 X10*6/uL (4.20-5.50); Red Cell Distribution Width 13.7 % (11.0-16.0); White Blood Count 9.6 X10*3/uL (4.8-10.8)
[2023-02-23 06:51] VITALS: BP 150/72; PULSE 55; RESP 19; TEMP 36.6; O2SAT 95
[2023-02-23 06:53] LABS: Anion Gap 15 (12-20); Blood Urea Nitrogen 12 mg/dL (9-16); Calcium 9.4 mg/dL (8.4-10.2); Carbon Dioxide 32 mmol/L (22-29); Chloride 92 mmol/L (96-108); Creatinine Clr Calc Pharmacy 44.5; Estimated Glomerular Filt Rate 40; Glucose Random 106 mg/dL (60-115); Sodium 135 mmol/L (135-145)
[2023-02-23] MEDS: Atorvastatin Calcium 20 MG TABLET PO (09:02)
[2023-02-23] MEDS: Gabapentin 100 MG CAPSULE 200 MG PO ×3 (09:02→20:33)
[2023-02-23] MEDS: Escitalopram Oxalate 20 MG TABLET PO (09:02)
[2023-02-23] MEDS: Escitalopram Oxalate 5 MG TABLET PO (09:02)
[2023-02-23] MEDS: Magnesium Oxide 400 MG TABLET 200 MG PO (09:02)
[2023-02-23] MEDS: Losartan Potassium 25 MG TABLET PO (09:02)
[2023-02-23] MEDS: Ascorbic Acid 500 MG TABLET 1000 MG PO (09:03)
[2023-02-23] MEDS: Ferrous Sulfate 324 MG TABLET.DR PO ×2 (09:03→20:33)
[2023-02-23] MEDS: Potassium Chloride ER 10 MEQ TABLET.ER PO (09:03)
[2023-02-23] MEDS: Tolterodine Tartrate LA 4 MG CAP.ER.24H PO (09:03)
[2023-02-23] MEDS: Metoprolol Tartrate 100 MG TABLET PO (09:03)
[2023-02-23] MEDS: Methenamine Hippurate 1 GM TABLET PO (09:03)
[2023-02-23] MEDS: Multivitamin TABLET 1 TAB PO (09:03)
[2023-02-23] MEDS: 0.9 % Sodium Chloride Flush 3 ML SYRINGE IVFLUSH ×3 (09:04→20:34)
[2023-02-23] MEDS: oxyCODONE HCl Immed Release 5 MG TABLET PO ×2 (09:10→17:16)
[2023-02-23 10:12] LABS: INTERNATIONAL NORM RATIO 2.8 (0.9-1.1); Prothrombin Time 33.6 SEC (11.1-13.3)
--- NOTE | 2023-02-23 11:27 | HO.PM.IMPN ---
Subjective Subjective Date of Service: 02/23/23 Interval History: f/u on fall, heart failure interval history: Feels better, concern about Cr rising Physical Exam Vital Signs: Vital Signs: Last Vital Signs Temp 98 F 02/23/23 06:51 Pulse 55 02/23/23 06:51 Resp 19 02/23/23 06:51 BP 150/72 H 02/23/23 06:51 Pulse Ox 95 02/23/23 06:51 O2 Del Method Nasal Cannula 02/23/23 06:51 O2 Flow Rate 1 02/23/23 06:51 BMI result Body Mass Index 42.5 Objective Data Active Medications Acetaminophen (Acetaminophen 325 Mg Tablet) 650 mg PO Q6H PRN PRN Reason: Pain, Mild (Pain Scale 1-3) Albuterol Sulfate (Albuterol Sulfate (0.083%) 2.5 Mg/3 Ml Vial.Neb) 2.5 mg INHALE RQ4H PRN PRN Reason: wheezing Albuterol Sulfate (Albuterol Sulfate 90 Mcg 8 Gm Inhaler) 2 puff INHALE RQ4H PRN PRN Reason: wheezing Ascorbic Acid (Ascorbic Acid 500 Mg Tablet) 1,000 mg PO DAILY [facility] Last Admin: 02/23/23 09:03 Dose: 1,000 mg Documented By: CHANELLE Atorvastatin Calcium (Atorvastatin Calcium 20 Mg Tablet) 20 mg PO DAILY [facility] Last Admin: 02/23/23 09:02 Dose: 20 mg Documented By: CHANELLE Cefuroxime Axetil (Cefuroxime Axetil 250 Mg Tablet) 250 mg PO Q12H [facility] Stop: 03/01/23 09:29 Last Admin: 02/23/23 09:02 Dose: 250 mg Documented By: CHANELLE Dicyclomine HCl (Dicyclomine Hcl 10 Mg Capsule) 20 mg PO Q8H PRN PRN Reason: abdominal pain Docusate Sodium (Docusate Sodium 100 Mg Capsule) 100 mg PO DAILY PRN PRN Reason: Constipation Doxepin HCl (Doxepin Hcl 25 Mg Capsule) 25 mg PO BEDTIME [facility] Last Admin: 02/22/23 20:00 Dose: 25 mg Documented By: BILL Ergocalciferol (Ergocalciferol (Vitamin D2) 1,250 Mcg Capsule) 1,250 mcg PO [facility] Escitalopram Oxalate (Escitalopram Oxalate 5 Mg Tablet) 5 mg PO DAILY [facility] Last Admin: 02/23/23 09:02 Dose: 5 mg Documented By: CHANELLE Escitalopram Oxalate (Escitalopram Oxalate 20 Mg Tablet) 20 mg PO DAILY [facility] Last Admin: 02/23/23 09:02 Dose: 20 mg Documented By: CHANELLE Ferrous Sulfate (Ferrous Sulfate 324 Mg Tablet.) 324 mg PO BID [facility] Last Admin: 02/23/23 09:03 Dose: 324 mg Documented By: CHANELLE Fluticasone/Vilanterol (Fluticasone/Vilanterol 100/25 Blst.W.Dev) 1 puff INHALE DAILY [facility] Last Admin: 02/23/23 07:48 Dose: Not Given Documented By: HOSEA Non-Admin Reason: Med Not Available Gabapentin (Gabapentin 100 Mg Capsule) 200 mg PO TID [facility] Last Admin: 02/23/23 09:02 Dose: 200 mg Documented By: CHANELLE Lorazepam (Lorazepam 1 Mg Tablet) 1 mg PO BID PRN PRN Reason: Anxiety Last Admin: 02/22/23 19:57 Dose: 1 mg Documented By: BILL Losartan Potassium (Losartan Potassium 25 Mg Tablet) 25 mg PO DAILY [facility]; Protocol Last Admin: 02/23/23 09:02 Dose: 25 mg Documented By: CHANELLE Magnesium Oxide (Magnesium Oxide 400 Mg Tablet) 200 mg PO DAILY [facility] Last Admin: 02/23/23 09:02 Dose: 200 mg Documented By: CHANELLE Methenamine Hippurate (Methenamine Hippurate 1 Gm Tablet) 1 gm PO DAILY [facility] Last Admin: 02/23/23 09:03 Dose: 1 gm Documented By: CHANELLE Metoprolol Tartrate (Metoprolol Tartrate 100 Mg Tablet) 100 mg PO BID [facility]; Protocol Last Admin: 02/23/23 09:03 Dose: 100 mg Documented By: CHANELLE Multivitamins/Vitamin C (Multivitamin Tablet) 1 tab PO DAILY [facility] Last Admin: 02/23/23 09:03 Dose: 1 tab Documented By: CHANELLE Omeprazole (Omeprazole 40 Mg Capsule.) 40 mg PO DAILY@0630 [facility] Last Admin: 02/23/23 06:01 Dose: 40 mg Documented By: PADMAJA Ondansetron HCl (Ondansetron Hcl 4 Mg/2 Ml Vial) 4 mg IVPUSH Q8H PRN PRN Reason: Nausea and Vomiting Oxycodone HCl (Oxycodone Hcl Immed Release 5 Mg Tablet) 5 mg PO Q4H PRN PRN Reason: Pain, Severe (Pain Scale 7-10) Last Admin: 02/23/23 09:10 Dose: 5 mg Documented By: CHANELLE Potassium Chloride (Potassium Chloride Er 10 Meq Tablet.Er) 10 meq PO DAILY [facility] Last Admin: 02/23/23 09:03 Dose: 10 meq Documented By: CHANELLE Sodium Chloride (0.9 % Sodium Chloride Flush 3 Ml Syringe) 3 ml IVFLUSH QSHIFT [facility] Last Admin: 02/23/23 09:04 Dose: 3 ml Documented By: CHANELLE Tolterodine Tartrate (Tolterodine Tartrate La 4 Mg Cap.Er.24h) 4 mg PO DAILY [facility] Last Admin: 02/23/23 09:03 Dose: 4 mg Documented By: CHANELLE Warfarin Sodium (Warfarin Sodium 4 Mg Tablet) 4 mg PO DAILY@1800 [facility] Last Admin: 02/22/23 19:38 Dose: 4 mg Documented By: BILL Labs 02/23/23 06:06 02/23/23 06:06 Labs: Laboratory Results - last 24 hr 02/22/23 02/23/23 02/23/23 13:03 06:06 09:11 MCV 89.2 MCH 28.2 MCHC 31.7 RDW 13.7 Plt Count 239 MPV 9.7 Immature Gran % (Auto) 0.5 H Neut % (Auto) 71.7 Lymph % (Auto) 15.5 L [place] % (Auto) 8.4 Eos % (Auto) 3.4 Baso % (Auto) 0.5 Lymph # (Auto) 1.5 [place] # (Auto) 0.8 Eos # (Auto) 0.3 Baso # (Auto) 0.1 Abs Immat Gran (auto) 0.05 H Absolute Neuts (auto) 6.9 Absolute Nucleated RBC 0.000 Nucleated RBC % (auto) 0.0 Hold Purple Top SEE NOTE PT 33.6 H INR 2.8 H VBG pH 7.61 H* VBG pCO2 29 VBG pO2 221 VBG HCO3 29 H VBG O2 Saturation 99.0 VBG Base Excess 8.4 Anion Gap 15 Estim Creat Clear Calc 44.5 Estimated GFR 40 Random Glucose 106 Calcium 9.4 Magnesium 2.0 Hold Green Top See Note Hold Yellow Top See Note Assessment and Plan (1) Acute heart failure with preserved ejection fraction (HFpEF): Status: Acute Plan Pt is a 72-year-old female with a PMH significant for?HFpEF, paroxysmal AFib on warfarin, moderate persistent asthma, ulcerative colitis, HLD, HTN, bioprosthetic aortic and mitral valve replacement, and chronic back pain w/ 5 kyphoplasties who presents to the ED for evaluation of mechanical fall at home. Pt will be admitted to the hospital for treatment further evaluation of acute hypoxic respiratory failure in the setting of HFpEF exacerbation likely secondary to medication noncompliance. Acute hypoxic respiratory failure in the setting of acute HFpEF exacerbation, hypoxia resolved. wean off O2 HFpEF exacerbatation, treated with IV Lasix but Cr going up so stop Lasix. , follow i/o, weight, low salt, and follow weight Hx of recent falls Pt reports multiple mechanical falls at home in past two years, two in past month Walks with cane and walker at baseline Imaging in ED negative for acute fracture or subluxation PT/OT evaluation Oxycodone 5 mg Q 4 p.r.n. for Grimaldo Question of UTI UA questionable for UTI Started on cefuroxime in the ED, continue with end date of 03/01/2023 Follow cultures Bladder pain Pt established with urology, scheduled for outpatient cystoscopy F/U outpatient with urology Paroxysmal AFib Continue metoprolol, warfarin, check INR daily HLD Continue statin Moderate persistent asthma Not in acute exacerbation Continue home inhalers Obesity class III Weight loss encouraged DNR/DNI DVT Prophylaxis: On warfarin Need for inpt: IV diuretics for HF and monitoring BMP Time Spent With Patient Time: Total time managing care of this patient today ____ minutes. Quality Stroke Does the patient have a stroke diagnosis?: No VTE Prior VTE?: No VTE Risk Level:: Medical - moderate - high VTE Device Contraindication: Treatment Not Indicated VTE Drug Contraindication: N/A - Med Ordered
[2023-02-23 12:00] VITALS: BP 146/63; PULSE 55; RESP 18; TEMP 36.7; O2SAT 94
--- NOTE | 2023-02-23 13:41 | MHC.CM.PN ---
PT is recommending STR; CM will follow.
[2023-02-23 15:11] VITALS: BP 119/59; PULSE 54; RESP 20; TEMP 35.9; O2SAT 95
[2023-02-23] MEDS: Warfarin Sodium 4 MG TABLET PO (17:16)
[2023-02-23 20:00] VITALS: BP 138/86; PULSE 56; RESP 18; TEMP 36.4; O2SAT 1
[2023-02-23] MEDS: Acetaminophen 325 MG TABLET 650 MG PO (20:33)
[2023-02-23] MEDS: Doxepin HCl 25 MG CAPSULE PO (20:34)
[2023-02-24] VITALS (9 sets, daily range): BP systolic 106–161; BP diastolic 53–82; PULSE 54–81; RESP 16–20; TEMP 36–36.6; O2SAT 92–97
[2023-02-24] MEDS: Omeprazole 40 MG CAPSULE.DR PO (05:53)
[2023-02-24 07:13] LABS: Basophils Percent Auto 0.6 % (0-2); Eosinophils Absolute Auto 0.4 X10*3/uL (0.0-0.4); Eosinophils Percent Auto 5.1 % (0-4); Hematocrit 39.7 % (37.0-47.0); Hemoglobin 12.4 g/dl (12.0-16.0); Imm Gran Abs Auto 0.03 X10*3/uL (0.00-0.03); Imm Gran Pct Auto 0.4 % (0.0-0.4); Lymphocytes Absolute Auto 1.5 X10*3/uL (1.2-4.9); Lymphocytes Percent Auto 22.4 % (20-40); MANUAL DIFF FLAG NO; Mean Corpuscular HGB Conc 31.2 g/dl (31.0-35.0); Mean Corpuscular Hemoglobin 28.1 pg (27.0-33.0); Mean Corpuscular Volume 89.8 fL (80.0-98.0); Mean Platelet Volume 9.8 fL (9.4-12.3); Monocytes Absolute Auto 0.6 X10*3/uL (0.1-1.2); Monocytes Percent Auto 8.7 % (2-11); Neutrophils Absolute Auto 4.3 x10*3/uL (2.0-8.3); Neutrophils Percent Auto 62.8 % (45-73); Platelet Count 265 X10*3/uL (160-400); Red Blood Count 4.42 X10*6/uL (4.20-5.50); Red Cell Distribution Width 13.3 % (11.0-16.0); White Blood Count 6.8 X10*3/uL (4.8-10.8)
[2023-02-24 07:27] LABS: INTERNATIONAL NORM RATIO 3.3 (0.9-1.1); Prothrombin Time 40.4 SEC (11.1-13.3)
[2023-02-24 07:30] LABS: Anion Gap 12 (12-20); Blood Urea Nitrogen 14 mg/dL (9-16); Calcium 9.6 mg/dL (8.4-10.2); Carbon Dioxide 34 mmol/L (22-29); Chloride 89 mmol/L (96-108); Creatinine Clr Calc Pharmacy 48.2; Estimated Glomerular Filt Rate 43; Glucose Random 96 mg/dL (60-115); Magnesium 2.3 mg/dL (1.6-2.6); Sodium 131 mmol/L (135-145)
[2023-02-24] MEDS: Fluticasone/Vilanterol 100/25 BLST.W.DEV 1 PUFF INHALE (08:19)
[2023-02-24] MEDS: Potassium Chloride ER 10 MEQ TABLET.ER PO (08:39)
[2023-02-24] MEDS: Gabapentin 100 MG CAPSULE 200 MG PO ×3 (08:39→20:00)
[2023-02-24] MEDS: 0.9 % Sodium Chloride Flush 3 ML SYRINGE IVFLUSH ×2 (08:39→20:01)
[2023-02-24] MEDS: Atorvastatin Calcium 20 MG TABLET PO (08:39)
[2023-02-24] MEDS: Metoprolol Tartrate 100 MG TABLET PO ×2 (08:40→20:00)
[2023-02-24] MEDS: Ascorbic Acid 500 MG TABLET 1000 MG PO (08:40)
[2023-02-24] MEDS: Methenamine Hippurate 1 GM TABLET PO (08:40)
[2023-02-24] MEDS: Ferrous Sulfate 324 MG TABLET.DR PO ×2 (08:40→20:00)
[2023-02-24] MEDS: Magnesium Oxide 400 MG TABLET 200 MG PO (08:41)
[2023-02-24] MEDS: Multivitamin TABLET 1 TAB PO (08:41)
[2023-02-24] MEDS: Escitalopram Oxalate 20 MG TABLET PO (08:41)
[2023-02-24] MEDS: Escitalopram Oxalate 5 MG TABLET PO (08:41)
[2023-02-24] MEDS: polyethylene glycoL 3350 17 GM POWD.PACK PO ×3 (10:18→20:01)
[2023-02-24] MEDS: Docusate Sodium 100 MG CAPSULE 200 MG PO (10:18)
[2023-02-24] MEDS: Tolterodine Tartrate LA 4 MG CAP.ER.24H PO (10:18)
--- NOTE | 2023-02-24 10:25 | MHC.CM.PN ---
CM met with Patient at bedside to discuss PT's recommendation for STR and SNF bed offers. Patient has 4 SNF bed offers but per her request, a referral has been made to [facility]. Patient has given CM permission to speak with her Son/[place] @ [phone]. CM will follow.
--- NOTE | 2023-02-24 13:04 | MHC.CM.PN ---
[facility] is able to accept Patient. CM met with Patient at bedside and spoke with Son/HCP/[place] @ [phone]; both are agreeable to [facility], who will have a bed for Patient tomorrow. RN is waiting for Patient to have a BM and RN & MD are aware of anticipated dc date to [facility] tomorrow. CM will follow.
[2023-02-24] MEDS: Milk of Magnesia 30 ML ORAL.SUSP PO (14:34)
--- NOTE | 2023-02-24 15:03 | P.PNIM_ITS ---
Subjective Subjective Date of Service: 02/24/23 Interval History: constipation Review of Systems no bm's for week as per patient no abd pain ,passing gases. Physical Exam 2 Vital Signs: Vital Signs: Last Vital Signs Temp 97.5 F 02/24/23 11:52 Pulse 54 02/24/23 11:52 Resp 18 02/24/23 11:52 BP 161/68 H 02/24/23 11:52 Pulse Ox 97 02/24/23 11:52 O2 Del Method Nasal Cannula 02/24/23 11:52 O2 Flow Rate 1 02/24/23 11:52 BMI result Body Mass Index 42.5 Appearance: Alert.? Oriented X3.? not in distress.? cvs: rrr, [id number] , no murmur res: clear to auscultation ,no rhonchii or wheezing abd: no rebound or guarding ,nt, bs present. ext pulses present , no cyanosis. neuro: axo3 , nonfocal. Objective Data Active Medications Acetaminophen (Acetaminophen 325 Mg Tablet) 650 mg PO Q6H PRN PRN Reason: Pain, Mild (Pain Scale 1-3) Last Admin: 02/23/23 20:33 Dose: 650 mg Documented By: JOSSELYN Albuterol Sulfate (Albuterol Sulfate (0.083%) 2.5 Mg/3 Ml Vial.Neb) 2.5 mg INHALE RQ4H PRN PRN Reason: wheezing Albuterol Sulfate (Albuterol Sulfate 90 Mcg 8 Gm Inhaler) 2 puff INHALE RQ4H PRN PRN Reason: wheezing Ascorbic Acid (Ascorbic Acid 500 Mg Tablet) 1,000 mg PO DAILY [facility] Last Admin: 02/24/23 08:40 Dose: 1,000 mg Documented By: JOVI Atorvastatin Calcium (Atorvastatin Calcium 20 Mg Tablet) 20 mg PO DAILY [facility] Last Admin: 02/24/23 08:39 Dose: 20 mg Documented By: JOVI Cefuroxime Axetil (Cefuroxime Axetil 250 Mg Tablet) 250 mg PO Q12H [facility] Stop: 03/01/23 09:29 Last Admin: 02/24/23 08:39 Dose: 250 mg Documented By: JOVI Dicyclomine HCl (Dicyclomine Hcl 10 Mg Capsule) 20 mg PO Q8H PRN PRN Reason: abdominal pain Docusate Sodium (Docusate Sodium 100 Mg Capsule) 100 mg PO DAILY PRN PRN Reason: Constipation Doxepin HCl (Doxepin Hcl 25 Mg Capsule) 25 mg PO BEDTIME [facility] Last Admin: 02/23/23 20:34 Dose: 25 mg Documented By: GISSELLORALJackson Ergocalciferol (Ergocalciferol (Vitamin D2) 1,250 Mcg Capsule) 1,250 mcg PO [facility] Escitalopram Oxalate (Escitalopram Oxalate 5 Mg Tablet) 5 mg PO DAILY [facility] Last Admin: 02/24/23 08:41 Dose: 5 mg Documented By: JOVI Escitalopram Oxalate (Escitalopram Oxalate 20 Mg Tablet) 20 mg PO DAILY [facility] Last Admin: 02/24/23 08:41 Dose: 20 mg Documented By: JOVI Ferrous Sulfate (Ferrous Sulfate 324 Mg Tablet.Dr) 324 mg PO BID [facility] Last Admin: 02/24/23 08:40 Dose: 324 mg Documented By: JOVI Fluticasone/Vilanterol (Fluticasone/Vilanterol 100/25 Blst.W.Dev) 1 puff INHALE DAILY [facility] Last Admin: 02/24/23 08:19 Dose: 1 puff Documented By: KRYSTLE Gabapentin (Gabapentin 100 Mg Capsule) 200 mg PO TID [facility] Last Admin: 02/24/23 14:34 Dose: 200 mg Documented By: JOVI Lorazepam (Lorazepam 1 Mg Tablet) 1 mg PO BID PRN PRN Reason: Anxiety Last Admin: 02/22/23 19:57 Dose: 1 mg Documented By: BILL Losartan Potassium (Losartan Potassium 25 Mg Tablet) 25 mg PO DAILY [facility]; Protocol Last Admin: 02/23/23 09:02 Dose: 25 mg Documented By: CHANELLE Magnesium Oxide (Magnesium Oxide 400 Mg Tablet) 200 mg PO DAILY [facility] Last Admin: 02/24/23 08:41 Dose: 200 mg Documented By: JOVI Methenamine Hippurate (Methenamine Hippurate 1 Gm Tablet) 1 gm PO DAILY [facility] Last Admin: 02/24/23 08:40 Dose: 1 gm Documented By: JOVI Metoprolol Tartrate (Metoprolol Tartrate 100 Mg Tablet) 100 mg PO BID [facility]; Protocol Last Admin: 02/24/23 08:40 Dose: 100 mg Documented By: JOVI Multivitamins/Vitamin C (Multivitamin Tablet) 1 tab PO DAILY [facility] Last Admin: 02/24/23 08:41 Dose: 1 tab Documented By: JOVI Omeprazole (Omeprazole 40 Mg Capsule.Dr) 40 mg PO DAILY@0630 [facility] Last Admin: 02/24/23 05:53 Dose: 40 mg Documented By: OZORALB Ondansetron HCl (Ondansetron Hcl 4 Mg/2 Ml Vial) 4 mg IVPUSH Q8H PRN PRN Reason: Nausea and Vomiting Oxycodone HCl (Oxycodone Hcl Immed Release 5 Mg Tablet) 5 mg PO Q4H PRN PRN Reason: Pain, Severe (Pain Scale 7-10) Last Admin: 02/23/23 17:16 Dose: 5 mg Documented By: ANGEL Polyethylene Glycol (Polyethylene Glycol 3350 17 Gm Powd.Pack) 17 gm PO DAILY [facility] Last Admin: 02/24/23 10:18 Dose: 17 gm Documented By: JOVI Potassium Chloride (Potassium Chloride Er 10 Meq Tablet.Er) 10 meq PO DAILY [facility] Last Admin: 02/24/23 08:39 Dose: 10 meq Documented By: JOVI Sodium Chloride (0.9 % Sodium Chloride Flush 3 Ml Syringe) 3 ml IVFLUSH QSHIFT [facility] Last Admin: 02/24/23 08:39 Dose: 3 ml Documented By: JOVI Tolterodine Tartrate (Tolterodine Tartrate La 4 Mg Cap.Er.24h) 4 mg PO DAILY [facility] Last Admin: 02/24/23 10:18 Dose: 4 mg Documented By: JOVI Warfarin Sodium (Warfarin Sodium 4 Mg Tablet) 4 mg PO DAILY@1800 [facility] Last Admin: 02/23/23 17:16 Dose: 4 mg Documented By: ANGEL Labs 02/24/23 06:07 02/24/23 06:07 Labs: Laboratory Results - last 24 hr 02/24/23 06:07 MCV 89.8 MCH 28.1 MCHC 31.2 RDW 13.3 Plt Count 265 MPV 9.8 Immature Gran % (Auto) 0.4 Neut % (Auto) 62.8 Lymph % (Auto) 22.4 [place] % (Auto) 8.7 Eos % (Auto) 5.1 H Baso % (Auto) 0.6 Lymph # (Auto) 1.5 [place] # (Auto) 0.6 Eos # (Auto) 0.4 Baso # (Auto) 0.0 Abs Immat Gran (auto) 0.03 Absolute Neuts (auto) 4.3 Absolute Nucleated RBC 0.000 Nucleated RBC % (auto) 0.0 PT 40.4 H D INR 3.3 H Anion Gap 12 Estim Creat Clear Calc 48.2 Estimated GFR 43 Random Glucose 96 Calcium 9.6 Magnesium 2.3 Microbiology Microbiology Results: Microbiology 02/22/23 Unknown Urine Culture - Final Urine clean catch - Urine hodges top Assessment and Plan (1) Acute heart failure with preserved ejection fraction (HFpEF): Status: Acute (2) Chronic anticoagulation: Status: Acute (3) Hyponatremia: Status: Acute Plan 72-year-old female with a PMH significant for?HFpEF, paroxysmal AFib on warfarin, moderate persistent asthma, ulcerative colitis, HLD, HTN, bioprosthetic aortic and mitral valve replacement, and chronic back pain w/ 5 kyphoplasties who presents to the ED for evaluation of mechanical fall at home. Pt will be admitted to the hospital for treatment further evaluation of acute hypoxic respiratory failure in the setting of HFpEF exacerbation likely secondary to medication noncompliance. Acute hypoxic respiratory failure in the setting of acute HFpEF exacerbation, hypoxia resolved. wean off O2 HFpEF exacerbatation, treated with IV Lasix but Cr going up so stop Lasix. , follow i/o, weight, low salt, and follow weight renal function seems slightly improving 1.2 hyponatremia :sodium 131 -possible related to diurtics use. off diuretics ,moniter renal function and electrolytes. Hx of recent falls Pt reports multiple mechanical falls at home in past two years, two in past month Walks with cane and walker at baseline Imaging in ED negative for acute fracture or subluxation PT/OT evaluation Oxycodone 5 mg Q 4 p.r.n. for Grimaldo Question of UTI UA questionable for UTI Started on cefuroxime in the ED, continue with end date of 03/01/2023 Follow cultures Bladder pain Pt established with urology, scheduled for outpatient cystoscopy F/U outpatient with urology Paroxysmal AFib Continue metoprolol, check INR 3.3,hold warfarin for today. HLD Continue statin Moderate persistent asthma Not in acute exacerbation Continue home inhalers Obesity class III Weight loss encouraged constipation: added colace,miralex,milk of magx1 dose. DNR/DNI DVT Prophylaxis: On warfarin Need for inpt: IV diuretics for HF and monitoring BMP,moniter inr.,moniter renal function and electrolytes,possible rehab placement in am. Time Spent With Patient Time: Total time managing care of this patient today ____ minutes. Quality Stroke Does the patient have a stroke diagnosis?: No VTE Prior VTE?: No VTE Risk Level:: Medical - moderate - high VTE Device Contraindication: Treatment Not Indicated VTE Drug Contraindication: N/A - Med Ordered
--- NOTE | 2023-02-24 17:01 | PC.NURSE ---
Pt IV access infiltrated. Dr. Ham said we can hold on IV access for now as plan for discharge tomorrow.
[2023-02-24] MEDS: LORazepam 1 MG TABLET PO (17:27)
[2023-02-24] MEDS: Doxepin HCl 25 MG CAPSULE PO (22:42)
[2023-02-25 03:39] VITALS: BP 169/65; PULSE 61; RESP 20; TEMP 36.2; O2SAT 94
[2023-02-25] MEDS: Ergocalciferol (Vitamin D2) 1,250 MCG CAPSULE 1250 MCG PO (06:09)
[2023-02-25] MEDS: Omeprazole 40 MG CAPSULE.DR PO (06:10)
[2023-02-25 06:18] LABS: MANUAL DIFF FLAG NO
[2023-02-25 06:36] LABS: INTERNATIONAL NORM RATIO 3.3 (0.9-1.1); Prothrombin Time 40.5 SEC (11.1-13.3)
[2023-02-25 06:40] LABS: Anion Gap 12 (12-20); Blood Urea Nitrogen 12 mg/dL (9-16); Calcium 9.3 mg/dL (8.4-10.2); Carbon Dioxide 32 mmol/L (22-29); Chloride 93 mmol/L (96-108); Creatinine Clr Calc Pharmacy 78.9; Estimated Glomerular Filt Rate > 60; Glucose Random 100 mg/dL (60-115); Magnesium 2.3 mg/dL (1.6-2.6); Potassium 4.2 mmol/L (3.3-5.1); Sodium 133 mmol/L (135-145)
[2023-02-25 06:56] LABS: Basophils Percent Auto 0.6 % (0-2); Eosinophils Absolute Auto 0.2 X10*3/uL (0.0-0.4); Eosinophils Percent Auto 3.8 % (0-4); Hematocrit 35.5 % (37.0-47.0); Hemoglobin 11.5 g/dl (12.0-16.0); Imm Gran Abs Auto 0.03 X10*3/uL (0.00-0.03); Imm Gran Pct Auto 0.5 % (0.0-0.4); Lymphocytes Absolute Auto 1.1 X10*3/uL (1.2-4.9); Lymphocytes Percent Auto 16.7 % (20-40); Mean Corpuscular HGB Conc 32.4 g/dl (31.0-35.0); Mean Corpuscular Hemoglobin 28.6 pg (27.0-33.0); Mean Corpuscular Volume 88.3 fL (80.0-98.0); Monocytes Absolute Auto 0.6 X10*3/uL (0.1-1.2); Monocytes Percent Auto 9.9 % (2-11); Neutrophils Absolute Auto 4.4 x10*3/uL (2.0-8.3); Neutrophils Percent Auto 68.5 % (45-73); Platelet Count 240 X10*3/uL (160-400); Red Blood Count 4.02 X10*6/uL (4.20-5.50); Red Cell Distribution Width 13.2 % (11.0-16.0); White Blood Count 6.4 X10*3/uL (4.8-10.8)
[2023-02-25] MEDS: Fluticasone/Vilanterol 100/25 BLST.W.DEV 1 PUFF INHALE (07:24)
[2023-02-25 07:25] VITALS: PULSE 78; RESP 18; O2SAT 94
[2023-02-25 07:37] VITALS: BP 144/70; PULSE 61; RESP 20; TEMP 36.4; O2SAT 97
[2023-02-25] MEDS: Gabapentin 100 MG CAPSULE 200 MG PO (08:46)
[2023-02-25] MEDS: Metoprolol Tartrate 100 MG TABLET PO (08:47)
[2023-02-25] MEDS: Escitalopram Oxalate 20 MG TABLET PO (08:47)
[2023-02-25] MEDS: Multivitamin TABLET 1 TAB PO (08:47)
[2023-02-25] MEDS: Tolterodine Tartrate LA 4 MG CAP.ER.24H PO (08:47)
[2023-02-25] MEDS: Potassium Chloride ER 10 MEQ TABLET.ER PO (08:47)
[2023-02-25] MEDS: Atorvastatin Calcium 20 MG TABLET PO (08:47)
[2023-02-25] MEDS: Escitalopram Oxalate 5 MG TABLET PO (08:47)
[2023-02-25] MEDS: Methenamine Hippurate 1 GM TABLET PO (08:47)
[2023-02-25] MEDS: Magnesium Oxide 400 MG TABLET 200 MG PO (08:47)
[2023-02-25] MEDS: Ascorbic Acid 500 MG TABLET 1000 MG PO (08:47)
[2023-02-25] MEDS: Ferrous Sulfate 324 MG TABLET.DR PO (08:47)
--- NOTE | 2023-02-25 10:48 | MHC.CM.PN ---
Patient has been medically cleared for dc to STR/SNF today. Patient will dc to [facility] today at 2 PM, via [facility]. Patient and her Son/[place] @ [phone] are aware of and in agreement with the dc plan. CM met with Patient at bedside and addressed IMM with her, providing Patient with the original and placing a copy on the chart.
--- NOTE | 2023-02-25 10:55 | PM.DS ---
DS: Providers Provider Date of Service: 02/25/23 Date of admission: 02/22/23 13:45 Date of discharge: 02/25/23 Primary care physician: Negrita Bains MD Attending physician on discharge: Luigi Ham Discharging clinician: Luigi Ham DS: Diagnosis Discharge Diagnosis (1) Acute heart failure with preserved ejection fraction (HFpEF): Status: Acute (2) Chronic anticoagulation: Status: Acute (3) Hyponatremia: Status: Acute DS: Summary Hospital Course Hospital Course: 72-year-old female with a PMH significant for?HFpEF, paroxysmal AFib on warfarin, moderate persistent asthma, ulcerative colitis, HLD, HTN, bioprosthetic aortic and mitral valve replacement, and chronic back pain w/ 5 kyphoplasties who presents to the ED for evaluation of mechanical fall at home. Pt will be admitted to the hospital for treatment further evaluation of acute hypoxic respiratory failure in the setting of HFpEF exacerbation likely secondary to medication noncompliance. Hospital course: Patient was admitted for acute hypoxemic respiratory failure secondary to CHF exacerbation -started on IV Lasix, diuresed-seems to be improved . Denies any shortness of breath currently. Patient creatinine was slightly bumping arm which is improving also now after holding Lasix for day. Facial start back to p.o. Lasix upon discharge monitor weight if gain weight 2 lbs or more . moniter renal function /electrolytes closely . mild uti -complete ceftin course until 03/01/23.hold methenamine until on ceftin. Bladder pain: improved . Pt established with urology, scheduled for outpatient cystoscopy F/U outpatient with urology afib : rate seems fine ,inr 3.3 ,hold warfarin today ,repeat inr in am and start warfarin accordingly. Constipation: Added laxatives, passing bowels. falls :Imaging in ED negative for acute fracture or subluxation seen by pt-recommended SNF . Patient with benefit from less than 30 days rehab stay. Plan: Start diuretics, the monitor renal function closely complete ceftin course until 03/01/23.hold methenamine until on ceftin. Assessment plan discussed the patient detail she understand and in agreement with above plan, time spent 50 minute. Time Spent with Patient Time attestation: Total time managing care of this patient today ____ minutes. Discharge coordination time: Greater than 30 minutes Quality: Safe Use of Opioids Does Pt have an Active Cancer Diagnosis on the Problem List?: No Quality: Stroke Does the patient have a stroke diagnosis?: No Physical Exam Vital Signs: Vital Signs: Last Vital Signs Temp 97.6 F 02/25/23 07:37 Pulse 61 02/25/23 07:37 Resp 20 02/25/23 07:37 BP 144/70 H 02/25/23 07:37 Pulse Ox 97 02/25/23 07:37 O2 Del Method Room Air 02/25/23 07:37 O2 Flow Rate 1 02/24/23 15:18 BMI result Body Mass Index 42.5 Appearance: Alert.? Oriented X3.? not in distress.? cvs: rrr, [id number] , no murmur res: clear to auscultation ,no rhonchii or wheezing abd: no rebound or guarding ,nt, bs present. ext pulses present , no cyanosis. neuro: axo3 , nonfocal. DS: Data Data Completed and Pending Completed studies during hospitalization [Text1]: Procedures Control Bleeding in Gastrointestinal Tract, Via Natural or Artificial Opening Endoscopic (04/02/22) Destruction of Cecum, Via Natural or Artificial Opening Endoscopic (04/02/22) Introduction of Other Therapeutic Substance into Lower GI, Via Natural or Artificial Opening Endoscopic (04/02/22) Labs on day of discharge: Laboratory Results - last 24 hr 02/25/23 06:05 WBC 6.4 RBC 4.02 L Hgb 11.5 L Hct 35.5 L MCV 88.3 MCH 28.6 MCHC 32.4 RDW 13.2 Plt Count 240 MPV 10.0 Immature Gran % (Auto) 0.5 H Neut % (Auto) 68.5 Lymph % (Auto) 16.7 L [place] % (Auto) 9.9 Eos % (Auto) 3.8 Baso % (Auto) 0.6 Lymph # (Auto) 1.1 L [place] # (Auto) 0.6 Eos # (Auto) 0.2 Baso # (Auto) 0.0 Abs Immat Gran (auto) 0.03 Absolute Neuts (auto) 4.4 Absolute Nucleated RBC 0.000 Nucleated RBC % (auto) 0.0 PT 40.5 H INR 3.3 H Sodium 133 L Potassium 4.2 Chloride 93 L Carbon Dioxide 32 H Anion Gap 12 BUN 12 Creatinine 0.74 Estim Creat Clear Calc 78.9 Estimated GFR > 60 Random Glucose 100 Calcium 9.3 Magnesium 2.3 Imaging Chest x-ray: Radiologist's impression: ITS Impressions Abdomen/Pelvis CT 02/22/23 04:00 IMPRESSION: 1. No new acute findings identified in the abdomen/pelvis. 2. Tiny focus of gas in the urinary bladder, which could be due to recent catheterization or potentially cystitis in the proper clinical setting. 3. Suggestion of cholelithiasis. If there is clinical concern for cholecystitis, this would be better assessed with ultrasound. 4. No acute fracture identified. Redemonstrated chronic changes including compression deformities of the thoracolumbar spine as described above. Cervical Spine CT 02/22/23 04:00 IMPRESSION: HEAD: No acute intracranial findings. CERVICAL SPINE: No acute findings identified. Degenerative changes as noted above. Head CT 02/22/23 04:00 IMPRESSION: HEAD: No acute intracranial findings. CERVICAL SPINE: No acute findings identified. Degenerative changes as noted above. Venous Duplex 02/22/23 09:20 IMPRESSION: No DVT demonstrated in the left lower extremity. Chest X-Ray 02/22/23 12:28 IMPRESSION: * Clear lungs. Discharge Plan Discharge Anticipated Discharge Date/Time: 02/25/23 10:23 Patient Disposition: Xfer SNF Discharge Diagnosis: HFpEF,falls ,uti,constipation Referrals: Naomi Baca [Outside] - 1 Week Negrita Bains MD [Primary Care Provider] - 1 Week Discharge Medications: New cefuroxime axetil 250 mg Tablet 250 mg PO Q12H Qty: 8 0RF polyethylene glycol 3350 17 gram Powder In Packet 17 g PO BID Qty: 14 0RF Continued fluticasone furoate-vilanterol [Breo Ellipta] 100-25 mcg/dose blister with device 1 ea inhalation DAILY 30 Days Qty: 60 0RF simvastatin [Zocor] 40 mg tablet 40 mg PO DAILY 90 Days Qty: 90 0RF doxepin 25 mg capsule 1 cap PO BEDTIME lorazepam 1 mg tablet 1 mg PO BID PRN (Reason: Anxiety) torsemide 20 mg tablet 1 tab PO DAILY ferrous sulfate [Feosol] 325 mg (65 mg iron) Tablet 325 mg PO BID Qty: 60 3RF escitalopram oxalate 5 mg tablet 1 tab PO DAILY dexlansoprazole 60 mg capsule,biphase delayed releas 1 cap PO DAILY albuterol sulfate 2.5 mg /3 mL (0.083 %) solution for nebulization 1 vial inhalation Q4H PRN (Reason: wheezing) vitamin B complex Tablet 1 tab PO DAILY magnesium 250 mg Tablet 250 mg PO DAILY ergocalciferol (vitamin D2) 1,250 mcg (50,000 unit) Capsule 1,250 mcg PO WE Patient Comments: thursday biotin 2,500 mcg Capsule 2,500 mcg PO DAILY losartan [Cozaar] 25 mg tablet 25 mg PO DAILY metoprolol tartrate [Lopressor] 100 mg tablet 100 mg PO BID gabapentin [Neurontin] 100 mg capsule 200 mg PO TID furosemide [Lasix] 40 mg tablet 40 mg PO DAILY escitalopram oxalate [Lexapro] 20 mg tablet 20 mg PO DAILY potassium chloride [K-Tab] 10 mEq tablet extended release 10 meq PO DAILY albuterol sulfate [Ventolin HFA] 90 mcg/actuation HFA aerosol inhaler 2 puff inhalation Q4H PRN (Reason: wheezing) solifenacin [Vesicare] 10 mg tablet 10 mg PO DAILY 90 Days Qty: 90 4RF ascorbic acid (vitamin C) 1,000 mg tablet 1 g PO DAILY 90 Days Qty: 90 1RF Held warfarin [Jantoven] 2 mg tablet 4 mg PO DAILY Hold Instructions: Resume on 02/26/23. methenamine hippurate 1 gram tablet 1 g PO DAILY Qty: 90 1RF Hold Instructions: Resume on 03/02/23. Discharge Orders: Discharge Order (Routine); Ordered 02/25/23 Ordered By: Luigi Ham Diet: Advance to usual diet Activity on Discharge: As tolerated Stand Alone Forms: Patient Portal Discharge page Care Plan Goals: Patient was admitted for acute hypoxemic respiratory failure secondary to CHF exacerbation -started on IV Lasix, diuresed-seems to be improved . Denies any shortness of breath currently. Patient creatinine was slightly bumping arm which is improving also now after holding Lasix for day. Facial start back to p.o. Lasix upon discharge monitor weight if gain weight 2 lbs or more . moniter renal function /electrolytes closely . mild uti -complete ceftin course until 03/01/23.hold methenamine until on ceftin. afib : rate seems fine ,inr 3.3 ,hold warfarin today ,repeat inr in am and start warfarin accordingly. Health Concerns: as above. Plan of Treatment: as above. Assessment: as above.
[2023-02-25 11:14] VITALS: BP 144/72; PULSE 63; RESP 20; TEMP 36.4; O2SAT 96
== END 2023-02-25 15:14 | disposition skilled nursing facility (03) | DRG 291 ==
LOC: HO.ED 05:16 → HO.EDOVER 13:56 → HO.IMC 17:36
PROVIDERS: Emergency Medicine; Internal Medicine; Admitting Provider Student in an Organized Health Care Education/Training Program; Emergency Provider Student in an Organized Health Care Education/Training Program; PCP Internal Medicine; Visit Provider Internal Medicine
DX: I11.0 Hypertensive heart disease with heart failure (principal); I50.33 Acute on chronic diastolic (congestive) heart failure; N39.0 Urinary tract infection, site not specified; Z68.41 Body mass index [BMI] 40.0-44.9, adult; E87.1 Hypo-osmolality and hyponatremia; J45.40 Moderate persistent asthma, uncomplicated; I48.0 Paroxysmal atrial fibrillation; Z66 Do not resuscitate; E66.01 Morbid (severe) obesity due to excess calories; Z79.01 Long term (current) use of anticoagulants; Z79.51 Long term (current) use of inhaled steroids; Z79.899 Other long term (current) drug therapy
CPT/HCPCS: 36415; 70450; 71045; 72125; 74176; 80048; 80053; 81001; 82803; 83735; 83880; 85025; 85610; 87086; 93005; 93971; 94640; 97162; 97530; 99285; J1940

== ENCOUNTER → 2023-02-22 13:45 | Outpatient (BNV) | payer MEDICARE, MEDICAID, SELFPAY | PROVIDERS: Admitting Provider Student in an Organized Health Care Education/Training Program; Emergency Provider Student in an Organized Health Care Education/Training Program; PCP Internal Medicine; Visit Provider Student in an Organized Health Care Education/Training Program | DX: I50.31 Acute diastolic (congestive) heart failure (principal); Z79.01 Long term (current) use of anticoagulants; E87.1 Hypo-osmolality and hyponatremia | CPT/HCPCS: 99223; 99231; 99232; 99239 ==

== ENCOUNTER 2023-03-09 15:34 | Outpatient (AMB) | payer MEDICARE, MEDICAID, SELFPAY ==
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
== END 2023-03-09 16:35 | disposition home or self-care (01) ==
PROVIDERS: PCP Internal Medicine; Visit Provider Nurse Practitioner Family
DX: N30.10 Interstitial cystitis (chronic) without hematuria (principal); N39.0 Urinary tract infection, site not specified; R31.0 Gross hematuria
CPT/HCPCS: 99214

== ENCOUNTER → 2023-03-09 15:34 | Outpatient (BNVA) | payer MEDICARE, MEDICAID, SELFPAY | PROVIDERS: PCP Internal Medicine; Visit Provider Nurse Practitioner Family | DX: N30.10 Interstitial cystitis (chronic) without hematuria (principal); N39.0 Urinary tract infection, site not specified; R31.0 Gross hematuria | CPT/HCPCS: 51798; 99212 ==

== ENCOUNTER → 2023-03-17 23:59 | Outpatient (BNV) | payer MEDICARE, MEDICAID, SELFPAY | PROVIDERS: PCP Internal Medicine; Visit Provider Internal Medicine | DX: I11.0 Hypertensive heart disease with heart failure (principal); I50.33 Acute on chronic diastolic (congestive) heart failure; I48.0 Paroxysmal atrial fibrillation; N39.0 Urinary tract infection, site not specified | CPT/HCPCS: G0180 ==

== ENCOUNTER 2023-04-13 13:00 | Day surgery (SDC) | payer MEDICARE, MEDICAID, SELFPAY ==
--- NOTE | 2023-03-27 09:17 | P.CONAN_ITS ---
HPI - Anesthesia Eval Consult details Narrative: Pt cx'd self d/t new onset URI 72yo F for Cystoscopy Conditionally cleared by cardiology if pt consistent with taking albuterol and diuretics as rx'd and breathing improved, but no preop cardiac testing required. Unable to reach patient by phone in regards to volume/respiratory status. s/p AVR and MVR 01/2018 Coumadin for afib. No lovenox bridge needed per cardiology [facility] Active Problems Active Problems: All Active Problems (Updated 03/09/23 @ 21:53 by ADAMARIS Pedroza) Gross hematuria (Acute) Hyponatremia (Acute) Acute heart failure with preserved ejection fraction (HFpEF) (Acute) Chronic anticoagulation (Acute) Accident due to mechanical fall without injury (Acute) Recurrent urinary tract infection (Acute) Interstitial cystitis (Acute) Anemia (Acute) Recurrent UTI (Acute) Ulcerative colitis (Acute) Urine incontinence (Acute) CHF exacerbation (Acute) Chronic anticoagulation (Acute) Hypoxia (Acute) GI bleed (Acute) Hyperkalemia (Acute) Positive occult stool blood test (Acute) Hospital discharge follow-up (Acute) Chronic hyponatremia (Acute) Nephropathy (Acute) Cardiomyopathy (Acute) Paroxysmal atrial fibrillation (Acute) Morbid obesity due to excess calories (Acute) Aortic valve replaced (Acute) History of mitral valve replacement (Acute) Rectal bleeding (Acute) Past Medical History Medical History Abnormal colonoscopy (~04/03/22) Wheezing Anemia Urinary incontinence Right carpal tunnel syndrome Post cardiotomy syndrome PTSD (post-traumatic stress disorder) Osteoarthritis, hip, bilateral Interstitial cystitis Lipid disorder Insomnia Generalized anxiety disorder with panic attacks Major depression, recurrent History of ulcerative colitis Chronic GERD Diastolic congestive heart failure Paroxysmal atrial fibrillation Age related osteoporosis Asthma, moderate persistent Anticoagulant long-term use Iron deficiency anemia Establishing care with new doctor, encounter for Hypertension, essential Family History Family History Daughter Mental health disorder Substance use disorder Father Emphysema lung Mother Heart disease Stroke Pacemaker Arthritis Family/Other Colon cancer Sister Crohn's disease Family history of problems with anesthesia: No Surgical History Surgical History Hx of rotator cuff surgery History of arthroplasty of both knees Hx of hysterectomy Status post mitral valve replacement Status post aortic valve replacement History of kyphoplasty History of artificial heart valve History of Problems with Anesthesia: Yes (Anesthesia 'blew out her artery' during knee replacement surgey- whole arm and side bruised for months) Social History Social History Household Members: Children Household Members Other:: son Housing: Apartment Are you a primary lawn caretaker to a significant other at home: No Do you presently have visiting nurse or other home services: No Alcohol intake: never Patient Tobacco Use Status: Former Tobacco user Quit Date: 28 yrs ago e-Cigarette/Vaping Use: Never Used Substance Use Type: Marijuana Advance Directives Date on File: 03/17/22 service: No Current occupational status: retired Cognitive needs: No Hearing needs: No Vision needs: Yes Meds Allergies Allergy/AdvReac Type Severity Reaction Status Date / Time adhesive [ADHESIVE] Allergy Unknown LOCAL Verified 03/09/23 21:12 REACTION Home Medications Medication Instructions Recorded Confirmed Last Taken Type escitalopram oxalate 20 mg tablet 20 mg PO DAILY 10/30/21 02/22/23 02/21/23 08:00 History (Lexapro) furosemide 40 mg tablet (Lasix) 40 mg PO DAILY 10/30/21 02/22/23 02/21/23 08:00 History gabapentin 100 mg capsule 200 mg PO TID 10/30/21 02/22/23 02/21/23 08:00 History (Neurontin) losartan 25 mg tablet (Cozaar) 25 mg PO DAILY 10/30/21 02/22/23 02/21/23 08:00 History metoprolol tartrate 100 mg tablet 100 mg PO BID 10/30/21 02/22/23 02/21/23 08:00 History (Lopressor) potassium chloride 10 mEq 10 meq PO DAILY 10/30/21 02/22/23 02/21/23 08:00 History tablet,extended release (K-Tab) doxepin 25 mg capsule 1 cap PO BEDTIME 11/14/21 02/22/23 02/21/23 22:00 History lorazepam 1 mg tablet 1 mg PO BID PRN Anxiety 11/14/21 02/22/23 Unknown History albuterol sulfate 2.5 mg/3 mL 1 vial inhalation Q4H PRN wheezing 03/17/22 02/22/23 02/21/23 08:00 History (0.083 %) solution for nebulization biotin 2,500 mcg capsule 2,500 mcg PO DAILY 03/17/22 02/22/23 02/21/23 08:00 History dexlansoprazole 60 mg 1 cap PO DAILY 03/17/22 02/22/23 02/21/23 08:00 History capsule,biphase delayed release ergocalciferol (vitamin D2) 1,250 1,250 mcg PO WE 03/17/22 02/22/23 02/21/23 08:00 History mcg (50,000 unit) capsule escitalopram oxalate 5 mg tablet 1 tab PO DAILY 03/17/22 02/22/23 02/21/23 08:00 History magnesium 250 mg tablet 250 mg PO DAILY 03/17/22 02/22/23 02/21/23 08:00 History vitamin B complex 1 tab PO DAILY 03/17/22 02/22/23 02/21/23 08:00 History warfarin 2 mg tablet (Jantoven) 4 mg PO DAILY 03/17/22 02/22/23 02/21/23 08:00 History torsemide 20 mg tablet 1 tab PO DAILY 07/28/22 02/22/23 02/21/23 08:00 History albuterol sulfate 90 mcg/actuation 2 puff inhalation Q4H PRN wheezing 10/16/22 02/22/23 02/21/23 08:00 History aerosol inhaler (Ventolin HFA) Exam Exam Date and Time: March 27, 2023 0917 Pertinent Lab Results Pertinent Lab Results: Laboratory Tests 02/25/23 06:05 WBC 6.4 Hgb 11.5 L Hct 35.5 L Plt Count 240 Sodium 133 L Potassium 4.2 Chloride 93 L Carbon Dioxide 32 H BUN 12 Creatinine 0.74 Narrative Narrative: EKG 02/2023 Vent. Rate : 051 BPM Atrial Rate : 051 BPM P-R Int : 192 ms QRS Dur : 154 ms QT Int : 544 ms P-R-T Axes : 043 -50 -14 degrees QTc Int : 501 ms Sinus bradycardia Right bundle branch block Left anterior fascicular block Bifascicular block Abnormal ECG When compared with ECG of 17-MAR-2022 15:07, (RBBB and left anterior fascicular block) is now Present EKG done at cardiology office 03/16/23 is same [place] [facility] [place] Mod dilated LA Mild to moderate conc LVH Nml LVEF 60-65% Indeterminate diastolic function 2/2 mitral valve replacement Poorly visualized RV Bioprosthetic aortic valve well seated and functioning nmly with mild stenosis of prosthesis Bioprosthetic mitral valve well seated and functioning nmly with a mean gradient of 5 to 6mmHg Trace tricuspid regurg with moderate to severe pulm with PASP of 64mmHg Mildly dilated ascending aorta of 4.1cm Assessment and Plan Assessment Anesthesia Assessment: Chart Reviewed Final Anesthetic Review Family History of Problems with Anesthesia: No History of Problems with Anesthesia: Yes (Anesthesia 'blew out her artery' during knee replacement surgey- whole arm and side bruised for months)
--- NOTE | 2023-04-10 11:36 | HO.ANESPROP2 ---
Documented by User: Francie Grey NP 04/10/23 14:23 HPI - Anesthesia Eval Consult details Narrative: 72yo F for Cystoscopy Conditionally cleared by cardiology if pt consistent with taking albuterol and diuretics as rx'd and breathing improved, but no preop cardiac testing required. Unable to reach patient by phone in regards to volume/respiratory status. s/p AVR and MVR 01/2018 Coumadin for afib. No lovenox bridge needed per cardiology Preop call by RN to son 04/10/23, son states pt still with URI symptoms and wheezing. This provider spoke to patient. Denies SOB or wheezing. Rare cough. Taking Lasix 40mg and albuterol as rx'd. OK for eval DOS. [facility] Active Problems Active Problems: All Active Problems (Updated 03/09/23 @ 21:53 by NELI Pedroza-DANG) Gross hematuria (Acute) Hyponatremia (Acute) Acute heart failure with preserved ejection fraction (HFpEF) (Acute) Chronic anticoagulation (Acute) Accident due to mechanical fall without injury (Acute) Recurrent urinary tract infection (Acute) Interstitial cystitis (Acute) Anemia (Acute) Recurrent UTI (Acute) Ulcerative colitis (Acute) Urine incontinence (Acute) CHF exacerbation (Acute) Chronic anticoagulation (Acute) Hypoxia (Acute) GI bleed (Acute) Hyperkalemia (Acute) Positive occult stool blood test (Acute) Hospital discharge follow-up (Acute) Chronic hyponatremia (Acute) Nephropathy (Acute) Cardiomyopathy (Acute) Paroxysmal atrial fibrillation (Acute) Morbid obesity due to excess calories (Acute) Aortic valve replaced (Acute) History of mitral valve replacement (Acute) Rectal bleeding (Acute) Past Medical History Medical History Abnormal colonoscopy (~04/03/22) Wheezing Anemia Urinary incontinence Right carpal tunnel syndrome Post cardiotomy syndrome PTSD (post-traumatic stress disorder) Osteoarthritis, hip, bilateral Interstitial cystitis Lipid disorder Insomnia Generalized anxiety disorder with panic attacks Major depression, recurrent History of ulcerative colitis Chronic GERD Diastolic congestive heart failure Paroxysmal atrial fibrillation Age related osteoporosis Asthma, moderate persistent Anticoagulant long-term use Iron deficiency anemia Establishing care with new doctor, encounter for Hypertension, essential Family History Family History Daughter Mental health disorder Substance use disorder Father Emphysema lung Mother Heart disease Stroke Pacemaker Arthritis Family/Other Colon cancer Sister Crohn's disease Family history of problems with anesthesia: No Surgical History Surgical History Hx of rotator cuff surgery History of arthroplasty of both knees Hx of hysterectomy Status post mitral valve replacement Status post aortic valve replacement History of kyphoplasty History of artificial heart valve History of Problems with Anesthesia: Yes (Anesthesia 'blew out her artery' during knee replacement surgey- whole arm and side bruised for months) Social History Social History Household Members: Children Household Members Other:: son Housing: Apartment Are you a primary hospice care transitions coordinator to a significant other at home: No Do you presently have visiting nurse or other home services: No Alcohol intake: never Patient Tobacco Use Status: Former Tobacco user Quit Date: 28 yrs ago e-Cigarette/Vaping Use: Never Used Substance Use Type: Marijuana Substance Use Frequency: Occasionally Are you DNR?: No Advance Directives: No Advance Directives Information Provided: Yes Advance Directives Date on File: 03/17/22 Nutrition Risks: No Nutritional Risk service: No Current occupational status: retired Cognitive needs: No Hearing needs: No Vision needs: Yes Meds Allergies Allergy/AdvReac Type Severity Reaction Status Date / Time adhesive [ADHESIVE] Allergy Unknown LOCAL Verified 04/13/23 13:55 REACTION Home Medications Medication Instructions Recorded Confirmed Last Taken Type escitalopram oxalate 20 mg tablet 20 mg PO DAILY 10/30/21 02/22/23 02/21/23 08:00 History (Lexapro) furosemide 40 mg tablet (Lasix) 40 mg PO DAILY 10/30/21 02/22/23 02/21/23 08:00 History gabapentin 100 mg capsule 200 mg PO TID 10/30/21 02/22/23 02/21/23 08:00 History (Neurontin) losartan 25 mg tablet (Cozaar) 25 mg PO DAILY 10/30/21 02/22/23 02/21/23 08:00 History metoprolol tartrate 100 mg tablet 100 mg PO BID 10/30/21 02/22/23 02/21/23 08:00 History (Lopressor) potassium chloride 10 mEq 10 meq PO DAILY 10/30/21 02/22/23 02/21/23 08:00 History tablet,extended release (K-Tab) doxepin 25 mg capsule 1 cap PO BEDTIME 11/14/21 02/22/23 02/21/23 22:00 History lorazepam 1 mg tablet 1 mg PO BID PRN Anxiety 11/14/21 02/22/23 Unknown History albuterol sulfate 2.5 mg/3 mL 1 vial inhalation Q4H PRN wheezing 03/17/22 02/22/23 02/21/23 08:00 History (0.083 %) solution for nebulization biotin 2,500 mcg capsule 2,500 mcg PO DAILY 03/17/22 02/22/23 02/21/23 08:00 History dexlansoprazole 60 mg 1 cap PO DAILY 03/17/22 02/22/23 02/21/23 08:00 History capsule,biphase delayed release ergocalciferol (vitamin D2) 1,250 1,250 mcg PO WE 03/17/22 02/22/23 02/21/23 08:00 History mcg (50,000 unit) capsule escitalopram oxalate 5 mg tablet 1 tab PO DAILY 03/17/22 02/22/23 02/21/23 08:00 History magnesium 250 mg tablet 250 mg PO DAILY 03/17/22 02/22/23 02/21/23 08:00 History vitamin B complex 1 tab PO DAILY 03/17/22 02/22/23 02/21/23 08:00 History warfarin 2 mg tablet (Jantoven) 4 mg PO DAILY 03/17/22 04/13/23 04/07/23 History torsemide 20 mg tablet 1 tab PO DAILY 07/28/22 02/22/23 02/21/23 08:00 History albuterol sulfate 90 mcg/actuation 2 puff inhalation Q4H PRN wheezing 10/16/22 02/22/23 02/21/23 08:00 History aerosol inhaler (Ventolin HFA) Exam Exam Date and Time: March 27, 2023916 Pertinent Lab Results Pertinent Lab Results: Laboratory Tests 02/25/23 06:05 WBC 6.4 Hgb 11.5 L Hct 35.5 L Plt Count 240 Sodium 133 L Potassium 4.2 Chloride 93 L Carbon Dioxide 32 H BUN 12 Creatinine 0.74 Narrative Narrative: EKG 02/2023 Vent. Rate : 051 BPM Atrial Rate : 051 BPM P-R Int : 192 ms QRS Dur : 154 ms QT Int : 544 ms P-R-T Axes : 043 -50 -14 degrees QTc Int : 501 ms Sinus bradycardia Right bundle branch block Left anterior fascicular block Bifascicular block Abnormal ECG When compared with ECG of 17-MAR-2022 15:07, (RBBB and left anterior fascicular block) is now Present EKG done at cardiology office 03/16/23 [place] [facility] [place] Mod dilated LA Mild to moderate conc LVH Nml LVEF 60-65% Indeterminate diastolic function 2/2 mitral valve replacement Poorly visualized RV Bioprosthetic aortic valve well seated and functioning nmly with mild stenosis of prosthesis Bioprosthetic mitral valve well seated and functioning nmly with a mean gradient of 5 to 6mmHg Trace tricuspid regurg with moderate to severe pulm with PASP of 64mmHg Mildly dilated ascending aorta of 4.1cm Assessment and Plan Assessment Anesthesia Assessment: Chart Reviewed Final Anesthetic Review Family History of Problems with Anesthesia: No History of Problems with Anesthesia: Yes (Anesthesia 'blew out her artery' during knee replacement surgey- whole arm and side bruised for months) Documented by User: Zackary Metzger MD 04/13/23 16:21 [facility] Past Medical History Medical History Abnormal colonoscopy (~04/03/22) Wheezing Anemia Urinary incontinence Right carpal tunnel syndrome Post cardiotomy syndrome PTSD (post-traumatic stress disorder) Osteoarthritis, hip, bilateral Interstitial cystitis Lipid disorder Insomnia Generalized anxiety disorder with panic attacks Major depression, recurrent History of ulcerative colitis Chronic GERD Diastolic congestive heart failure Paroxysmal atrial fibrillation Age related osteoporosis Asthma, moderate persistent Anticoagulant long-term use Iron deficiency anemia Establishing care with new doctor, encounter for Hypertension, essential Family History Family History Daughter Mental health disorder Substance use disorder Father Emphysema lung Mother Heart disease Stroke Pacemaker Arthritis Family/Other Colon cancer Sister Crohn's disease Surgical History Surgical History Hx of rotator cuff surgery History of arthroplasty of both knees Hx of hysterectomy Status post mitral valve replacement Status post aortic valve replacement History of kyphoplasty History of artificial heart valve Social History Social History Household Members: Children Household Members Other:: son Housing: Apartment Are you a primary hospice care transitions coordinator to a significant other at home: No Do you presently have visiting nurse or other home services: No Alcohol intake: never Patient Tobacco Use Status: Former Tobacco user Quit Date: 28 yrs ago e-Cigarette/Vaping Use: Never Used Substance Use Type: Marijuana Substance Use Frequency: Occasionally Are you DNR?: No Advance Directives: No Advance Directives Information Provided: Yes Advance Directives Date on File: 03/17/22 Nutrition Risks: No Nutritional Risk service: No Current occupational status: retired Cognitive needs: No Hearing needs: No Vision needs: Yes Meds Allergies Allergy/AdvReac Type Severity Reaction Status Date / Time adhesive [ADHESIVE] Allergy Unknown LOCAL Verified 04/13/23 13:55 REACTION Home Medications Medication Instructions Recorded Confirmed Last Taken Type escitalopram oxalate 20 mg tablet 20 mg PO DAILY 10/30/21 02/22/23 02/21/23 08:00 History (Lexapro) furosemide 40 mg tablet (Lasix) 40 mg PO DAILY 10/30/21 02/22/23 02/21/23 08:00 History gabapentin 100 mg capsule 200 mg PO TID 10/30/21 02/22/23 02/21/23 08:00 History (Neurontin) losartan 25 mg tablet (Cozaar) 25 mg PO DAILY 10/30/21 02/22/23 02/21/23 08:00 History metoprolol tartrate 100 mg tablet 100 mg PO BID 10/30/21 02/22/23 02/21/23 08:00 History (Lopressor) potassium chloride 10 mEq 10 meq PO DAILY 10/30/21 02/22/23 02/21/23 08:00 History tablet,extended release (K-Tab) doxepin 25 mg capsule 1 cap PO BEDTIME 11/14/21 02/22/23 02/21/23 22:00 History lorazepam 1 mg tablet 1 mg PO BID PRN Anxiety 11/14/21 02/22/23 Unknown History albuterol sulfate 2.5 mg/3 mL 1 vial inhalation Q4H PRN wheezing 03/17/22 02/22/23 02/21/23 08:00 History (0.083 %) solution for nebulization biotin 2,500 mcg capsule 2,500 mcg PO DAILY 03/17/22 02/22/23 02/21/23 08:00 History dexlansoprazole 60 mg 1 cap PO DAILY 03/17/22 02/22/23 02/21/23 08:00 History capsule,biphase delayed release ergocalciferol (vitamin D2) 1,250 1,250 mcg PO WE 03/17/22 02/22/23 02/21/23 08:00 History mcg (50,000 unit) capsule escitalopram oxalate 5 mg tablet 1 tab PO DAILY 03/17/22 02/22/23 02/21/23 08:00 History magnesium 250 mg tablet 250 mg PO DAILY 03/17/22 02/22/23 02/21/23 08:00 History vitamin B complex 1 tab PO DAILY 03/17/22 02/22/23 02/21/23 08:00 History warfarin 2 mg tablet (Jantoven) 4 mg PO DAILY 03/17/22 04/13/23 04/07/23 History torsemide 20 mg tablet 1 tab PO DAILY 07/28/22 02/22/23 02/21/23 08:00 History albuterol sulfate 90 mcg/actuation 2 puff inhalation Q4H PRN wheezing 10/16/22 02/22/23 02/21/23 08:00 History aerosol inhaler (Ventolin HFA) Exam Airway Mallampati Class: II TM Dist: >3cm Neck ROM: Full Heart: RRR Lungs: CTA Assessment and Plan Assessment Anesthesia Assessment: Anesthesia Plan Discussed and Chart Reviewed Final Anesthetic Review NPO: Yes ASA Class: III Final Preanesthetic Review: No Changes in Pt Med Stat, Meds/Allgs Chart Reviewed, Consent Obtained/Reviewed and Anes Risks/Benef Reviewed Patient Risk: High Procedure Risk: Low Anesthetic Plan Anesthetic Plan: MAC: Disposition: Standard PACU
[2023-04-13] MEDS: Lactated Ringers 1,000 ML 50 ML IVCONT (14:13)
[2023-04-13 14:24] VITALS: BMI 38.4
[2023-04-13 14:25] VITALS: BP 137/60; PULSE 56; RESP 18; TEMP 36.6; O2SAT 95
--- NOTE | 2023-04-13 14:54 | PC.NURSE ---
report given to rama vargas rn at this time.
--- NOTE | 2023-04-13 16:20 | MHC.SHP ---
Pre-Procedural Eval Section A Date of Service: 04/13/23 The patient is an INPATIENT: No Changes since office visit: No Cold of Flu in the past 2 weeks, No New Medical Problems, No Changes in Medication and No Patient answered all questions The History & Physical has been completed within 30 days and I have reviewed it.: Yes Section B Chief Complaint: Interstitial cystitis (chronic) without hematuria Allergies: Allergies Allergy/AdvReac Type Severity Reaction Status Date / Time adhesive [ADHESIVE] Allergy Unknown LOCAL Verified 04/13/23 13:55 REACTION Plan Diagnosis/Plan: Unchanged (gross hematuria - cystoscopy) I have reviewed the history and physical and performed a pertinent physical examination on my patient. No changes have occurred unless specified. Time Spent With Patient Time: Total time managing care of this patient today ____ minutes.
--- NOTE | 2023-04-13 16:21 | HO.ANESPROP2 ---
[facility] Active Problems All Active Problems Gross hematuria (Acute) Hyponatremia (Acute) Acute heart failure with preserved ejection fraction (HFpEF) (Acute) Chronic anticoagulation (Acute) Accident due to mechanical fall without injury (Acute) Recurrent urinary tract infection (Acute) Interstitial cystitis (Acute) Anemia (Acute) Recurrent UTI (Acute) Ulcerative colitis (Acute) Urine incontinence (Acute) CHF exacerbation (Acute) Chronic anticoagulation (Acute) Hypoxia (Acute) GI bleed (Acute) Hyperkalemia (Acute) Positive occult stool blood test (Acute) Hospital discharge follow-up (Acute) Chronic hyponatremia (Acute) Nephropathy (Acute) Cardiomyopathy (Acute) Paroxysmal atrial fibrillation (Acute) Morbid obesity due to excess calories (Acute) Aortic valve replaced (Acute) History of mitral valve replacement (Acute) Rectal bleeding (Acute) Past Medical History Medical History Abnormal colonoscopy (~04/03/22) Wheezing Anemia Urinary incontinence Right carpal tunnel syndrome Post cardiotomy syndrome PTSD (post-traumatic stress disorder) Osteoarthritis, hip, bilateral Interstitial cystitis Lipid disorder Insomnia Generalized anxiety disorder with panic attacks Major depression, recurrent History of ulcerative colitis Chronic GERD Diastolic congestive heart failure Paroxysmal atrial fibrillation Age related osteoporosis Asthma, moderate persistent Anticoagulant long-term use Iron deficiency anemia Establishing care with new doctor, encounter for Hypertension, essential Family History Family History Daughter Mental health disorder Substance use disorder Father Emphysema lung Mother Heart disease Stroke Pacemaker Arthritis Family/Other Colon cancer Sister Crohn's disease Family history of problems with anesthesia: No Surgical History Surgical History Hx of rotator cuff surgery History of arthroplasty of both knees Hx of hysterectomy Status post mitral valve replacement Status post aortic valve replacement History of kyphoplasty History of artificial heart valve History of Problems with Anesthesia: Yes (Anesthesia 'blew out her artery' during knee replacement surgey- whole arm and side bruised for months) Social History Social History Household Members: Children Household Members Other:: son Housing: Apartment Are you a primary care coordination manager to a significant other at home: No Do you presently have visiting nurse or other home services: No Alcohol intake: never Patient Tobacco Use Status: Former Tobacco user Quit Date: 28 yrs ago e-Cigarette/Vaping Use: Never Used Substance Use Type: Marijuana Substance Use Frequency: Occasionally Are you DNR?: No Advance Directives: No Advance Directives Information Provided: Yes Advance Directives Date on File: 03/17/22 Nutrition Risks: No Nutritional Risk service: No Current occupational status: retired Cognitive needs: No Hearing needs: No Vision needs: Yes Meds Allergies Allergy/AdvReac Type Severity Reaction Status Date / Time adhesive [ADHESIVE] Allergy Unknown LOCAL Verified 04/13/23 13:55 REACTION Active Medications: Current Medications Lactated Ringer's (Lr) 1,000 mls @ 50 mls/hr IVCONT .Q20H JENNIFER Last Admin: 04/13/23 14:13 Dose: 50 mls/hr Levofloxacin (Levofloxacin 500 Mg Tablet) 500 mg PO ONCE ONE Stop: 04/13/23 16:20 Home Medications Medication Instructions Recorded Confirmed Last Taken Type escitalopram oxalate 20 mg tablet 20 mg PO DAILY 10/30/21 02/22/23 02/21/23 08:00 History (Lexapro) furosemide 40 mg tablet (Lasix) 40 mg PO DAILY 10/30/21 02/22/23 02/21/23 08:00 History gabapentin 100 mg capsule 200 mg PO TID 10/30/21 02/22/23 02/21/23 08:00 History (Neurontin) losartan 25 mg tablet (Cozaar) 25 mg PO DAILY 10/30/21 02/22/23 02/21/23 08:00 History metoprolol tartrate 100 mg tablet 100 mg PO BID 10/30/21 02/22/23 02/21/23 08:00 History (Lopressor) potassium chloride 10 mEq 10 meq PO DAILY 10/30/21 02/22/23 02/21/23 08:00 History tablet,extended release (K-Tab) doxepin 25 mg capsule 1 cap PO BEDTIME 11/14/21 02/22/23 02/21/23 22:00 History lorazepam 1 mg tablet 1 mg PO BID PRN Anxiety 11/14/21 02/22/23 Unknown History albuterol sulfate 2.5 mg/3 mL 1 vial inhalation Q4H PRN wheezing 03/17/22 02/22/23 02/21/23 08:00 History (0.083 %) solution for nebulization biotin 2,500 mcg capsule 2,500 mcg PO DAILY 03/17/22 02/22/23 02/21/23 08:00 History dexlansoprazole 60 mg 1 cap PO DAILY 03/17/22 02/22/23 02/21/23 08:00 History capsule,biphase delayed release ergocalciferol (vitamin D2) 1,250 1,250 mcg PO WE 03/17/22 02/22/23 02/21/23 08:00 History mcg (50,000 unit) capsule escitalopram oxalate 5 mg tablet 1 tab PO DAILY 03/17/22 02/22/23 02/21/23 08:00 History magnesium 250 mg tablet 250 mg PO DAILY 03/17/22 02/22/23 02/21/23 08:00 History vitamin B complex 1 tab PO DAILY 03/17/22 02/22/23 02/21/23 08:00 History warfarin 2 mg tablet (Jantoven) 4 mg PO DAILY 03/17/22 04/13/23 04/07/23 History torsemide 20 mg tablet 1 tab PO DAILY 07/28/22 02/22/23 02/21/23 08:00 History albuterol sulfate 90 mcg/actuation 2 puff inhalation Q4H PRN wheezing 10/16/22 02/22/23 02/21/23 08:00 History aerosol inhaler (Ventolin HFA) Exam Height,Weight and Vital Signs: Height 5 ft Weight 89.176 kg Last Vital Signs Temp 97.8 F 04/13/23 14:25 Pulse 56 04/13/23 14:25 Resp 18 04/13/23 14:25 BP 137/60 04/13/23 14:25 Pulse Ox 95 04/13/23 14:25 O2 Del Method Room Air 04/13/23 14:25 Pertinent Lab Results Pertinent Lab Results: Laboratory Tests 04/13/23 14:28 PT 12.0 D INR 1.0 D Airway Mallampati Class: II TM Dist: >3cm Neck ROM: Full Loose/Missing/Broken Teeth: No Heart: rrr Lungs: cta Assessment and Plan Assessment Anesthesia Assessment: Anesthesia Plan Discussed and Chart Reviewed Final Anesthetic Review Family History of Problems with Anesthesia: No History of Problems with Anesthesia: Yes (Anesthesia 'blew out her artery' during knee replacement surgey- whole arm and side bruised for months) NPO: Yes ASA Class: III Final Preanesthetic Review: No Changes in Pt Med Stat, Meds/Allgs Chart Reviewed, Consent Obtained/Reviewed and Anes Risks/Benef Reviewed Patient Risk: High Procedure Risk: Low Anesthetic Plan Anesthetic Plan: MAC: Disposition: Standard PACU
--- NOTE | 2023-04-13 17:11 | W.PM.OPN ---
Operative Note Operative Note Date of Service: 04/13/23 Narrative: PreOperative Diagnosis: Gross hematuria Post Operative Diagnosis: Chronic cystitis Procedure: Cystoscopy Surgeon: Dr Zackary Arreguin Anesthesia: Sedation Indications for procedure: Gross hematuria with recurrent UTIs Procedure: After informed consent was verified the patient was brought to the operating room and placed in a supine position. Anesthesia was administered per protocol. The patient was prepped and draped in a sterile fashion. Safety pause time-out was performed. Antibiotics being given. Meatus normal position Urethra normal Bladder examination with retroflexion of cystoscope Bladder Orifices normal shape and position Trigone inflamed Bladder Capacity medium Trabeculations grade 1 Cellule Formation yes Diverticulum Formation - Mucosal Erythema diffuse mucosal erythema consistent with chronic cystitis Bladder Tumor - Pathology: Drains: Plan for trimethoprim 90 days, estradiol Vagifem tablet 2 times per week
[2023-04-13 17:20] VITALS: BP 184/72; PULSE 99; RESP 10; TEMP 36.8; O2SAT 98
[2023-04-13 17:35] VITALS: BP 161/84; PULSE 77; RESP 16; O2SAT 95
[2023-04-13] MEDS: Acetaminophen 325 MG TABLET 975 MG PO (17:39)
[2023-04-13 17:50] VITALS: BP 158/85; PULSE 71; RESP 18; TEMP 37.4; O2SAT 95
== END 2023-04-13 18:07 | disposition home or self-care (01) ==
PROVIDERS: Nurse Practitioner; PCP Internal Medicine; Visit Provider Urology
PROC: 0TJB8ZZ Inspection of Bladder, Via Natural or Artificial Opening Endoscopic (ICD-10-PCS; CPT 52000; principal; 2023-04-13 14:50)
DX: N30.10 Interstitial cystitis (chronic) without hematuria (principal); R31.0 Gross hematuria; R32 Unspecified urinary incontinence; I11.0 Hypertensive heart disease with heart failure; I50.31 Acute diastolic (congestive) heart failure; I48.0 Paroxysmal atrial fibrillation; D50.9 Iron deficiency anemia, unspecified; E78.5 Hyperlipidemia, unspecified; J45.40 Moderate persistent asthma, uncomplicated; F43.10 Post-traumatic stress disorder, unspecified; Z87.440 Personal history of urinary (tract) infections; Z95.2 Presence of prosthetic heart valve; Z79.899 Other long term (current) drug therapy; Z79.01 Long term (current) use of anticoagulants
CPT/HCPCS: 52000; 36415; 85610; J1956; J2310; J2704; J3010

== ENCOUNTER → 2023-04-13 13:00 | Outpatient (BNV) | payer MEDICARE, MEDICAID, SELFPAY | PROVIDERS: PCP Internal Medicine; Visit Provider Urology | DX: N30.10 Interstitial cystitis (chronic) without hematuria (principal); R31.0 Gross hematuria | CPT/HCPCS: 52000 ==

== ENCOUNTER 2023-05-27 13:35 | Outpatient (REF) | payer MEDICARE, MEDICAID, SELFPAY | END 2023-05-27 13:36 | disposition home or self-care (01) | LOC: HO.HMGCLDS 13:35 | PROVIDERS: PCP Internal Medicine; Visit Provider Nurse Practitioner Family | DX: Z13.89 Encounter for screening for other disorder (principal) ==

== ENCOUNTER 2023-05-28 06:30 | Outpatient (REF) | payer MEDICARE, MEDICAID, SELFPAY | END 2023-05-28 06:31 | disposition home or self-care (01) | LOC: HO.HMGCLNP 06:30 | PROVIDERS: Visit Provider Nurse Practitioner Family | DX: N39.0 Urinary tract infection, site not specified (principal) | CPT/HCPCS: 81001; 87086 ==

== ENCOUNTER 2023-05-29 13:29 | Outpatient (AMB) | payer MEDICARE, MEDICAID, SELFPAY ==
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
== END 2023-05-29 14:37 | disposition home or self-care (01) ==
PROVIDERS: PCP Internal Medicine; Visit Provider Nurse Practitioner Family
DX: N30.10 Interstitial cystitis (chronic) without hematuria (principal); N39.0 Urinary tract infection, site not specified; R31.0 Gross hematuria
CPT/HCPCS: 99214

== ENCOUNTER → 2023-05-29 13:29 | Outpatient (BNVA) | payer MEDICARE, MEDICAID, SELFPAY | PROVIDERS: PCP Internal Medicine; Visit Provider Nurse Practitioner Family | DX: N30.10 Interstitial cystitis (chronic) without hematuria (principal); N39.0 Urinary tract infection, site not specified; R31.0 Gross hematuria | CPT/HCPCS: 51798; 99212 ==

== ENCOUNTER 2023-06-02 11:44 | Outpatient (AMB) | payer MEDICARE, MEDICAID, SELFPAY ==
[2023-06-02 11:50] VITALS: BP 148/74; PULSE 50; O2SAT 94; BMI 40.4
--- NOTE | 2023-06-02 11:50 | A.OFFPC_ITS ---
Vital Signs 06/02/23 11:50 Height 5 ft Weight 207 lb 2 oz BMI 40.4 BP 148/74 H Blood Pressure Location Rt brachial Position Sitting Pulse 50 Pulse Source Pulse Oximeter Pulse Oximetry (%) 94 Oxygen Delivery Method Room Air Intake Visit Reasons: checkup Allergies adhesive [ADHESIVE] Allergy (Unknown, Verified 06/02/23 11:51) LOCAL REACTION Medication List - Last Reconciled 06/02/23 by Negrita Bains MD albuterol sulfate 1 vial inhalation Q4H PRN albuterol sulfate 90 mcg/actuation (Ventolin HFA) 2 puffs inhalation Q4H PRN ascorbic acid (vitamin C) 1 g PO DAILY 90 days biotin 2,500 mcg PO DAILY dexlansoprazole 1 cap PO DAILY dexlansoprazole 30 mg PO DAILY doxepin 1 cap PO BEDTIME ergocalciferol (vitamin D2) 1,250 mcg PO WE escitalopram oxalate 1 tab PO DAILY escitalopram oxalate (Lexapro) 20 mg PO DAILY estradiol (Yuvafem) 10 mcg vaginal 2XW 28 days ferrous sulfate (Feosol) 325 mg PO BID fluticasone furoate-vilanterol 100-25 mcg/dose (Breo Ellipta) 1 ea inhalation DAILY 30 days furosemide (Lasix) 40 mg PO DAILY gabapentin (Neurontin) 200 mg PO TID gabapentin 300 mg PO TID lorazepam 1 mg PO BID PRN losartan (Cozaar) 25 mg PO DAILY magnesium 250 mg PO DAILY methenamine hippurate 1 g PO DAILY metoprolol tartrate (Lopressor) 100 mg PO BID mirabegron ER (Myrbetriq) 25 mg PO DAILY 90 days nitrofurantoin macrocrystal 100 mg PO BID 14 days polyethylene glycol 3350 17 grams PO BID potassium chloride ER (K-Tab) 10 mEq PO DAILY simvastatin (Zocor) 40 mg PO DAILY 90 days solifenacin (Vesicare) 10 mg PO DAILY 90 days torsemide 1 tab PO DAILY trimethoprim 100 mg PO BEDTIME 90 days vitamin B complex 1 tab PO DAILY warfarin (Jantoven) 4 mg PO DAILY Tobacco use date assessed: 06/02/23 Fall risk assessment: 2 + Falls in past year (3) Last assessed Fall Risk: 06/02/23 Dental Screening Dental Screen Date: 06/02/23 Did you have a dental visit in the last 12 months?: No Did you have a dental problem in the last 6 months where you did not have access to dental care?: No Was dental information given to patient?: No HPI checkup HPI Details Patient is a 72-year-old morbidly obese female came in today to be evaluated for gross hematuria. Also complaining of frequency of urination, patient is seeing Urology [facility] Her last visit was last week on Thursday, patient has cystoscopy done which showed erythema around the bladder lining consistent with interstitial cystitis. Ultrasound of kidney did not show any hydronephrosis or stones. Currently she is on antibiotic prescribed by the Urology. Patient has developed tremor and son is concerned that she is having difficulty with memory. Patient would like to see a neurologist however son will call me with the name of neurologist patient would like to see and then I can place a referral for her. Her tremor is resting as well as when she is actively using hands Patient have a history of hyponatremia, mitral valve replacement, aortic valve replacement , chronic edema, paroxysmal atrial fibrillation, cardiomyopathy, on chronic anticoagulation, ulcerative colitis, Other providers patient is seeing are Dr. Mercado Cardiology, Patient have mitral valve and aortic valve replaced, atrial fibrillation and is on warfarin, her son tells me Dr. Mercado has retired so she is in a process of getting established with a new vacuum cleaner repair person Dr. Arriaga Hematology [facility], recent H&H is within normal limit patient is on iron supplement once a day Urology [facility] patient have appointment coming for follow-up Dr. Cunningham that gastroenterology for ulcerative colitis Dr. Garcia instructional technology specialist Dr. Queen neurosurgery, for chronic back problems [facility] Medical History Abnormal colonoscopy (~04/03/22) Wheezing Anemia Urinary incontinence Right carpal tunnel syndrome Post cardiotomy syndrome PTSD (post-traumatic stress disorder) Osteoarthritis, hip, bilateral Interstitial cystitis Lipid disorder Insomnia Generalized anxiety disorder with panic attacks Major depression, recurrent History of ulcerative colitis Chronic GERD Diastolic congestive heart failure Paroxysmal atrial fibrillation Age related osteoporosis Asthma, moderate persistent Anticoagulant long-term use Iron deficiency anemia Establishing care with new doctor, encounter for Hypertension, essential Surgical History Hx of rotator cuff surgery History of arthroplasty of both knees Hx of hysterectomy Status post mitral valve replacement Status post aortic valve replacement History of kyphoplasty History of artificial heart valve Family History Daughter Mental health disorder Substance use disorder Father Emphysema lung Mother Heart disease Stroke Pacemaker Arthritis Family/Other Colon cancer Sister Crohn's disease Social History Household Members: Children Household Members Other:: son Housing: Apartment Are you a primary veterinarian laboratory animal care to a significant other at home: No Do you presently have visiting nurse or other home services: No Alcohol intake: never Patient Tobacco Use Status: Former Tobacco user Quit Date: 28 yrs ago e-Cigarette/Vaping Use: Never Used Substance Use Type: Marijuana Advance Directives Date on File: 03/17/22 service: No Current occupational status: retired Cognitive needs: No Hearing needs: No Vision needs: Yes Questionnaire Thrive Questionnaire Date Thrive assessed: 02/22/23 GUANACO-7 AMB Questionnaire GUANACO-7 Date GUANACO - 7 assessed: 10/30/21 Source: Developed by Drs. Marco Antonio Diaz, Janeth Streeter, Alec Gayle and colleagues, with an educational lizett from [employer]. Review of Systems Const Denies chills and Denies fever(s) ENT Denies epistaxis and Denies nasal discharge Card Denies chest pain Resp Denies chest congestion, Denies cough and Denies hemoptysis GI Denies diarrhea and Denies nausea Skin/Breast Denies rash Neuro Reports no additional complaints Psych Reports no additional complaints Endo Reports no additional complaints Physical exam (Primary Care) Vital Signs: Last Vital Signs Pulse 50 06/02/23 11:50 BP 148/74 H 06/02/23 11:50 Pulse Ox 94 06/02/23 11:50 Oxygen Delivery Method Room Air 06/02/23 11:50 BMI result Body Mass Index 40.4 Tobacco/Smoking Status: Tobacco use Status Tobacco use date assessed 06/02/23 06/02/23 11:54 Patient Tobacco Use Status Former Tobacco user 06/02/23 11:54 e-Cigarette/Vaping Use Never Used 06/02/23 11:54 Thrive Assessment: Date of Thrive Assessment Date Thrive assessed 02/22/23 06/02/23 11:54 Const General: cooperative, comfortable and no acute distress Orientation/consciousness: patient oriented x3 HENMT Head: Yes normocephalic Eyes General: appearance normal, both eyes and all related structures Neck Neck: Yes supple Resp Effort & Inspection: normal respiratory effort, no cough and no stridor Cardio Heart sounds: S1 normal heart sound present and S2 normal heart sound present Skin General skin exam: turgor normal Neuro General: patient oriented x3, tone normal and moves all extremities Assessment and Plan Assessment & Plan (1) Gross hematuria: Code(s): R31.0 - Gross hematuria (2) Recurrent urinary tract infection: Code(s): N39.0 - Urinary tract infection, site not specified (3) Interstitial cystitis: Code(s): N30.10 - Interstitial cystitis (chronic) without hematuria (4) Frequency of urination: Code(s): R35.0 - Frequency of micturition (5) Ulcerative colitis: Code(s): K51.90 - Ulcerative colitis, unspecified, without complications Qualifiers: Ulcerative colitis location: unspecified ulcerative colitis location Digestive disease complication type: unspecified complication Qualified Code(s): K51.919 - Ulcerative colitis, unspecified with unspecified complications (6) Chronic anticoagulation: Code(s): Z79.01 - MCC (current) use of anticoagulants (7) Cardiomyopathy: Code(s): I42.9 - Cardiomyopathy, unspecified Qualifiers: Cardiomyopathy type: unspecified Qualified Code(s): I42.9 - Cardiomyopathy, unspecified (8) Paroxysmal atrial fibrillation: Code(s): I48.0 - Paroxysmal atrial fibrillation (9) Aortic valve replaced: Code(s): Z95.2 - Presence of prosthetic heart valve (10) History of mitral valve replacement: Code(s): Z95.2 - Presence of prosthetic heart valve (11) Hyponatremia: Code(s): E87.1 - Hypo-osmolality and hyponatremia Plan Patient is a 72-year-old morbidly obese female came in today to be evaluated for gross hematuria. Also complaining of frequency of urination, patient is seeing Urology [facility] Her last visit was last week on Thursday, patient has cystoscopy done which showed erythema around the bladder lining consistent with interstitial cystitis. Ultrasound of kidney did not show any hydronephrosis or stones. Currently she is on antibiotic prescribed by the Urology. Patient has developed tremor and son is concerned that she is having difficulty with memory. Patient would like to see a neurologist however son will call me with the name of neurologist patient would like to see and then I can place a referral for her. Her tremor is resting as well as when she is actively using hands Patient have a history of hyponatremia, mitral valve replacement, aortic valve replacement , chronic edema, paroxysmal atrial fibrillation, cardiomyopathy, on chronic anticoagulation, ulcerative colitis, Other providers patient is seeing are Dr. Mercado Cardiology, Patient have mitral valve and aortic valve replaced, atrial fibrillation and is on warfarin, her son tells me Dr. Mercado has retired so she is in a process of getting established with a new vacuum cleaner repair person Dr. Arriaga Hematology [facility], recent H&H is within normal limit patient is on iron supplement once a day Urology [facility] patient have appointment coming for follow-up Dr. Cunningham that gastroenterology for ulcerative colitis Dr. Garcia instructional technology specialist Dr. Queen neurosurgery, for chronic back problems Orders: Orders Complete Blood Count Auto Diff Today E87.1 - Hypo-osmolality and hyponatremia, R31.0 - Gross hematuria Comprehensive Met. Panel Today E87.1 - Hypo-osmolality and hyponatremia, R31.0 - Gross hematuria Ferritin Today E87.1 - Hypo-osmolality and hyponatremia, R31.0 - Gross hematuria Hemoglobin A1c Today R35.0 - Frequency of micturition Coding Level of Care Code Est Pt Level 4 (16038) Diagnoses Gross hematuria R31.0 Recurrent urinary tract infection N39.0 Interstitial cystitis N30.10 Frequency of urination R35.0 Ulcerative colitis with complication, unspecified location K51.919 Ulcerative colitis location: unspecified ulcerative colitis location Digestive disease complication type: unspecified complication Chronic anticoagulation Z79.01 Cardiomyopathy, unspecified type I42.9 Cardiomyopathy type: unspecified Paroxysmal atrial fibrillation I48.0 Aortic valve replaced Z95.2 History of mitral valve replacement Z95.2 Hyponatremia E87.1
== END 2023-06-02 12:57 | disposition home or self-care (01) ==
PROVIDERS: PCP Internal Medicine; Visit Provider Internal Medicine
DX: R31.0 Gross hematuria (principal); K51.919 Ulcerative colitis, unspecified with unspecified complications; I42.9 Cardiomyopathy, unspecified; I48.0 Paroxysmal atrial fibrillation; N39.0 Urinary tract infection, site not specified; N30.10 Interstitial cystitis (chronic) without hematuria; R35.0 Frequency of micturition; Z79.01 Long term (current) use of anticoagulants; Z95.2 Presence of prosthetic heart valve; E87.1 Hypo-osmolality and hyponatremia
CPT/HCPCS: 99214

== ENCOUNTER 2023-06-02 12:18 | Outpatient (REF) | payer MEDICARE, MEDICAID, SELFPAY ==
[2023-06-02 16:44] LABS: MANUAL DIFF FLAG NO
[2023-06-02 17:27] LABS: Basophils Absolute Auto 0.1 X10*3/uL (0.0-0.2); Basophils Percent Auto 0.6 % (0-2); Eosinophils Absolute Auto 0.2 X10*3/uL (0.0-0.4); Eosinophils Percent Auto 2.7 % (0-4); Hematocrit 36.2 % (37.0-47.0); Hemoglobin 11.6 g/dl (12.0-16.0); Imm Gran Abs Auto 0.03 X10*3/uL (0.00-0.03); Imm Gran Pct Auto 0.4 % (0.0-0.4); Lymphocytes Absolute Auto 1.4 X10*3/uL (1.2-4.9); Mean Corpuscular Hemoglobin 28.7 pg (27.0-33.0); Mean Corpuscular Volume 89.6 fL (80.0-98.0); Mean Platelet Volume 10.6 fL (9.4-12.3); Monocytes Absolute Auto 0.5 X10*3/uL (0.1-1.2); Monocytes Percent Auto 6.6 % (2-11); Neutrophils Absolute Auto 5.9 x10*3/uL (2.0-8.3); Neutrophils Percent Auto 72.7 % (45-73); Platelet Count 283 X10*3/uL (160-400); Red Blood Count 4.04 X10*6/uL (4.20-5.50); White Blood Count 8.1 X10*3/uL (4.8-10.8)
[2023-06-02 17:39] LABS: Estimated Average Glucose 97 mg/dL
[2023-06-02 17:44] LABS: Alanine Aminotransferase 11 U/L (0-31); Albumin Level 4.1 g/dL (3.5-5.0); Alkaline Phosphatase 86 U/L (39-117); Anion Gap 18 (12-20); Aspartate Amino Transferase 18 U/L (5-31); Bilirubin Total 0.3 mg/dL (0.0-1.0); Blood Urea Nitrogen 22 mg/dL (9-16); Calcium 9.3 mg/dL (8.4-10.2); Carbon Dioxide 25 mmol/L (22-29); Chloride 92 mmol/L (96-108); Estimated Glomerular Filt Rate 45; Glucose Random 110 mg/dL (60-115); Potassium 4.8 mmol/L (3.3-5.1); Sodium 130 mmol/L (135-145); Total Protein 6.9 g/dL (6.5-8.0)
[2023-06-02 17:53] LABS: Ferritin 61 ng/mL (10-250)
== END 2023-06-02 12:19 | disposition home or self-care (01) ==
LOC: HO.HMGCLDS 12:18
PROVIDERS: PCP Internal Medicine; Visit Provider Internal Medicine
DX: R35.0 Frequency of micturition (principal); R31.0 Gross hematuria; E87.1 Hypo-osmolality and hyponatremia
CPT/HCPCS: 36415; 80053; 82728; 83036; 85025

== ENCOUNTER → 2023-07-21 11:27 | Outpatient (BNVA) | payer MEDICARE, MEDICAID, SELFPAY | PROVIDERS: PCP Internal Medicine; Visit Provider Nurse Practitioner Family ==

== ENCOUNTER → 2023-07-30 13:03 | Outpatient (BNVA) | payer MEDICARE, MEDICAID, SELFPAY | PROVIDERS: PCP Internal Medicine; Visit Provider Nurse Practitioner Family ==

== ENCOUNTER 2023-08-25 11:36 | Outpatient (AMB) | payer MEDICARE, MEDICAID, SELFPAY ==
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
== END 2023-08-25 12:43 | disposition home or self-care (01) ==
PROVIDERS: PCP Internal Medicine; Visit Provider Nurse Practitioner Family
DX: N39.0 Urinary tract infection, site not specified (principal); R35.0 Frequency of micturition; R31.0 Gross hematuria; N30.10 Interstitial cystitis (chronic) without hematuria; R32 Unspecified urinary incontinence
CPT/HCPCS: 99214

== ENCOUNTER 2023-08-25 13:11 | Inpatient (IN) | payer MEDICARE, OTHER, SELFPAY ==
--- NOTE | ~2023-08-25 | CT_ITS ---
EXAMINATION: CT HEAD WITHOUT CONTRAST CLINICAL INFORMATION: Diffuse COMPARISON: CT head from 02/22/2023 TECHNIQUE: Contiguous axial imaging was performed from the skull base to vertex without intravenous administration of contrast. This CT examination was performed using dose optimization techniques as appropriate, variously including the following: *Automated exposure control *Adjustment of mA and/or kV according to patient size (this includes techniques or standardized protocols for targeted exams where dose is matched to indication/reason for exam; i.e. extremities or head) *Use of iterative reconstruction technique DLP: 561 mGy-cm FINDINGS: There is no evidence of acute intracranial hemorrhage or territorial infarction. Chronic white matter small vessel ischemic changes. Cerebral atrophy. Chronic lacunar infarcts of the left basal ganglia. No abnormal mass effect or midline shift is seen. Ravi to white matter differentiation is well preserved. No extra-axial fluid collections are identified. The ventricles are normal in size. There is no abnormal attenuation within the brain parenchyma. The osseous structures and soft tissues are normal. Status post left mastoidectomy. The right mastoid air cells and visualized portions of the paranasal sinuses are well aerated. CT/CT head/brain wo IV con IMPRESSION: 1. No acute intracranial pathology. 2. Chronic white matter small vessel ischemic changes.
--- NOTE | ~2023-08-25 | US_ITS ---
EXAMINATION: US VENOUS ULTRASOUND WITH DOPPLER LOWER EXTREMITY, LEFT CLINICAL INFORMATION: Left lower calf pain COMPARISON: None available. TECHNIQUE: Ultrasound of the deep veins is performed from the hip to the calf with compression sonography and color and pulse Doppler assessment. Spectral analysis with color-flow imaging is performed. FINDINGS: There is normal venous compression and respiratory variation. The visualized common femoral vein, superficial femoral vein, profunda femoral vein, popliteal vein, and the posterior tibial and peroneal veins show no evidence of deep venous thrombosis. The contralateral common femoral vein demonstrates normal respiratory variation and vascular flow. US/US venous duplex LE LT IMPRESSION: No DVT demonstrated in the left lower extremity.
--- NOTE | ~2023-08-25 | XR_ITS ---
EXAMINATION: XR CHEST CLINICAL INFORMATION: Shortness of breath COMPARISON: Previous chest x-ray February 2023 TECHNIQUE: Frontal view of the chest was obtained. FINDINGS: The cardiac silhouette is slightly enlarged but stable. Prosthetic heart valve and median sternotomy wires. Lung volumes are low. There is question of pulmonary venous redistribution The lungs are otherwise clear. No significant pleural effusion. No pneumothorax. Degenerative changes of the spine and right shoulder. The right shoulder. XR/XR chest 1V IMPRESSION: Stable enlargement of the cardiac silhouette and question pulmonary venous redistribution.
[2023-08-25 13:45] VITALS: BP 152/54; PULSE 50; RESP 16; TEMP 37.1; O2SAT 93; BMI 40.4
--- NOTE | 2023-08-25 13:47 | ECG_ITS ---
Test Reason : weakness Blood Pressure : / mmHG Vent. Rate : 056 BPM Atrial Rate : 000 BPM P-R Int : 000 ms QRS Dur : 172 ms QT Int : 538 ms P-R-T Axes : 000 -78 -23 degrees QTc Int : 519 ms Normal sinus rhythm with Premature atrial complexes Right bundle branch block Left anterior fascicular block Bifascicular block Abnormal ECG When compared with ECG of 22-FEB-2023 03:01, Premature atrial complexes are now Present Referred By: Mya Duran Electronically Signed By:CHANELLE KABA MD
--- NOTE | 2023-08-25 13:48 | ED.GENADULT ---
HPI - General Adult General Chief complaint: Altered Mental Status Stated complaint: Delirium Blood in Urine Time Seen by Provider: 08/25/23 16:01 Related Data Home Medications Medication Instructions Recorded Confirmed escitalopram oxalate 20 mg tablet 20 mg PO DAILY 10/30/21 08/25/23 (Lexapro) losartan 25 mg tablet (Cozaar) 25 mg PO DAILY 10/30/21 08/25/23 metoprolol tartrate 100 mg tablet 100 mg PO BID 10/30/21 08/25/23 (Lopressor) potassium chloride 10 mEq 10 meq PO DAILY 10/30/21 08/25/23 tablet,extended release (K-Tab) doxepin 25 mg capsule 1 cap PO BEDTIME 11/14/21 08/25/23 lorazepam 1 mg tablet 1 mg PO DAILY@1800 Anxiety 11/14/21 08/25/23 albuterol sulfate 2.5 mg/3 mL 1 vial inhalation Q4H PRN wheezing 03/17/22 08/25/23 (0.083 %) solution for nebulization biotin 2,500 mcg capsule 2,500 mcg PO DAILY 03/17/22 08/25/23 ergocalciferol (vitamin D2) 1,250 1,250 mcg PO WE 03/17/22 08/25/23 mcg (50,000 unit) capsule escitalopram oxalate 5 mg tablet 1 tab PO DAILY 03/17/22 08/25/23 magnesium 250 mg tablet 250 mg PO DAILY 03/17/22 08/25/23 vitamin B complex 1 tab PO DAILY 03/17/22 08/25/23 warfarin 2 mg tablet (Jantoven) 2 - 4 mg PO DAILY@1800 03/17/22 08/25/23 torsemide 20 mg tablet 2 tab PO DAILY 07/28/22 08/25/23 albuterol sulfate 90 mcg/actuation 2 puff inhalation Q4H PRN wheezing 10/16/22 08/25/23 aerosol inhaler (Ventolin HFA) dexlansoprazole 30 mg 30 mg PO DAILY@1900 05/29/23 08/25/23 capsule,biphase delayed release gabapentin 300 mg capsule 300 mg PO BID 05/29/23 08/25/23 Lactobacillus acidophilus 1 cap PO BID 08/25/23 08/25/23 (Acidophilus capsule) dextran 70-hypromellose (PF) 0.1 1 drp ophthalmic (eye) Q4H PRN Dry 08/25/23 08/25/23 %-0.3 % eye drops in a dropperette Eye(S) (Artificial Tears (PF)) ferrous sulfate 325 mg (65 mg 325 mg PO BEDTIME 08/25/23 08/25/23 iron) tablet (Feosol) fluticasone furoate 100 1 ea inhalation DAILY PRN Wheezing 08/25/23 08/25/23 mcg-vilanterol 25 mcg/dose inhalation powder (Breo Ellipta) polyethylene glycol 3350 17 gram 17 g PO BID PRN Constipation 08/25/23 08/25/23 oral powder packet simvastatin 40 mg tablet (Zocor) 40 mg PO BEDTIME 08/25/23 08/25/23 Previous Rx's Medication Instructions Recorded solifenacin 10 mg tablet (Vesicare) 10 mg PO DAILY 90 days #90 tabs 10/16/22 ascorbic acid (vitamin C) 1,000 mg 1 g PO DAILY 90 days #90 tabs 01/22/23 tablet vibegron 75 mg tablet (Gemtesa) 75 mg PO DAILY 90 days #90 tabs 07/30/23 methenamine hippurate 1 gram tablet 1 g PO DAILY #90 tabs 08/24/23 estradiol 10 mcg vaginal tablet 10 mcg vaginal 2XW 28 days #8 tabs 08/25/23 (Yuvafem) Allergies Allergy/AdvReac Type Severity Reaction Status Date / Time adhesive [ADHESIVE] Allergy Unknown LOCAL Verified 08/25/23 20:32 REACTION melatonin Allergy PYSCHOSIS Verified 08/25/23 20:45 blue dye AdvReac Diarrhea Verified 08/25/23 20:46 [facility] Past Medical History Medical History Abnormal colonoscopy (~04/03/22) Wheezing Anemia Urinary incontinence Right carpal tunnel syndrome Post cardiotomy syndrome PTSD (post-traumatic stress disorder) Osteoarthritis, hip, bilateral Interstitial cystitis Lipid disorder Insomnia Generalized anxiety disorder with panic attacks Major depression, recurrent History of ulcerative colitis Chronic GERD Diastolic congestive heart failure Paroxysmal atrial fibrillation Age related osteoporosis Asthma, moderate persistent Anticoagulant long-term use Iron deficiency anemia Establishing care with new doctor, encounter for Hypertension, essential Surgical History Hx of rotator cuff surgery History of arthroplasty of both knees Hx of hysterectomy Status post mitral valve replacement Status post aortic valve replacement History of kyphoplasty History of artificial heart valve Family History Family History Daughter Mental health disorder Substance use disorder Father Emphysema lung Mother Heart disease Stroke Pacemaker Arthritis Family/Other Colon cancer Sister Crohn's disease Social History Social History Household Members: Children Household Members Other:: son Housing: Apartment Are you a primary cardiac care unit nurse to a significant other at home: No Do you presently have visiting nurse or other home services: No Alcohol intake: never Patient Tobacco Use Status: Former Tobacco user Quit Date: 28 yrs ago Smoked in Last 30 Days: No e-Cigarette/Vaping Use: Never Used Use of substances other than those prescribed or required for medical reasons: No Substance Use Type: Marijuana Advance Directives: Yes Advance Directives on File: Yes Advance Directives Date on File: 03/17/22 Nutrition Risks: No Nutritional Risk service: No Current occupational status: retired Cognitive needs: No Hearing needs: No Vision needs: Yes Physical Exam ED Vital Signs: Vital Signs - 24 hr 08/25/23 13:45 08/25/23 15:43 08/25/23 19:10 Temperature 98.7 F 97.4 F Pulse Rate 50 64 54 Respiratory Rate 16 16 16 Blood Pressure 152/54 H 151/53 H 157/60 H Pulse Oximetry 93 97 94 Oxygen Delivery Method Room Air Room Air Room Air BMI result Body Mass Index 40.4 Course Course Course Narrative: This is a Rapid Medical Examination (RME) in triage, full HPI, ROS, assessment and plan per primary provider in the Main ED. 72 yo female with multiple medical problems including HFpEF, MV/AV replacement on Coumadin, afib, anemia requiring transfusion in the past, neuropathy, who presents to the ER from her Urology office for evaluation of weakness, confusion and longstanding blood in her urine. Son is concerned about worsening anemia. She has been incontinent and having episodes of eyes rolling back. INR was almost 5 last week, was off of it for a few days and now 1.8. She has pitting LE edema now, not taking the water pill due to weakness. Plan: needs to be brought to treatment room - labs, CT head, EKG, UA. Medications Administered Generic Name Dose Route Start Last Admin Trade Name Freq PRN Reason Stop Dose Admin Acetaminophen 650 mg 08/25/23 20:53 08/25/23 21:43 Acetaminophen 325 Mg Tablet PO 650 mg Q6H PRN Administration Pain, Mild (Pain Scale 1-3) Atorvastatin Calcium 20 mg 08/25/23 21:15 08/25/23 21:42 Atorvastatin Calcium 20 Mg Tablet PO 20 mg BEDTIME JENNIFER Administration Doxepin HCl 25 mg 08/25/23 21:15 08/25/23 21:42 Doxepin Hcl 25 Mg Capsule PO 25 mg BEDTIME JENNIFER Administration Piperacillin Sod/Tazobactam 50 mls @ 100 mls/hr 08/25/23 21:00 08/25/23 22:13 Sod 3.375 gm/ Sodium Chloride IV Infused Q6H JENNIFER Infusion Lactated Ringer's 1,000 mls @ 80 mls/hr 08/25/23 21:00 08/25/23 21:05 Lr IVCONT 80 mls/hr .[id number] JENNIFER Administration Discontinued Medications Generic Name Dose Route Start Last Admin Trade Name Freq PRN Reason Stop Dose Admin Furosemide 40 mg 08/25/23 19:18 08/25/23 20:05 Furosemide 40 Mg/4 Ml Vial IVPUSH 08/25/23 19:19 40 mg ONCE ONE Administration Protocol Ceftriaxone Sodium 1 gm/ 50 mls @ 100 mls/hr 08/25/23 16:34 08/25/23 19:11 Sodium Chloride IV 08/25/23 17:03 Infused ONCE ONE Infusion Lorazepam 1 mg 08/25/23 20:52 08/25/23 21:04 Lorazepam 1 Mg Tablet PO 08/25/23 20:53 1 mg ONCE ONE Administration Pantoprazole Sodium 40 mg 08/25/23 19:47 08/25/23 20:02 Pantoprazole Sodium 40 Mg/10 Ml Vial IVPUSH 08/25/23 19:48 40 mg ONCE ONE Administration Medical Decision Making Lab Data 08/25/23 20:02 08/25/23 14:10 Labs: Lab Results 08/25/23 08/25/23 08/25/23 Range/Units 14:10 15:27 17:18 WBC 6.0 (4.8-10.8) X10*3/uL RBC 3.65 L (4.20-5.50) X10*6/uL Hgb 10.2 L (12.0-16.0) g/dl Hct 32.1 L (37.0-47.0) % MCV 87.9 (80.0-98.0) fL MCH 27.9 (27.0-33.0) pg MCHC 31.8 (31.0-35.0) g/dl RDW 12.9 (11.0-16.0) % Plt Count 231 (160-400) X10*3/uL MPV 9.7 (9.4-12.3) fL Immature Gran % (Auto) 0.5 H (0.0-0.4) % Neut % (Auto) 71.6 (45-73) % Lymph % (Auto) 17.1 L (20-40) % [place] % (Auto) 8.5 (2-11) % Eos % (Auto) 1.8 (0-4) % Baso % (Auto) 0.5 (0-2) % Lymph # (Auto) 1.0 L (1.2-4.9) X10*3/uL [place] # (Auto) 0.5 (0.1-1.2) X10*3/uL Eos # (Auto) 0.1 (0.0-0.4) X10*3/uL Baso # (Auto) 0.0 (0.0-0.2) X10*3/uL Abs Immat Gran (auto) 0.03 (0.00-0.03) X10*3/uL Absolute Neuts (auto) 4.3 (2.0-8.3) x10*3/uL Absolute Nucleated RBC 0.000 (0.0-0.012) X10*3/uL Nucleated RBC % (auto) 0.0 (0.0-0.2) /100WBC Hold Purple Top PT 22.8 H D (11.1-13.3) SEC INR 1.9 H (0.9-1.1) APTT 41.6 H (26.0-36.8) SEC Sodium 134 L (135-145) mmol/L Potassium 5.2 H (3.3-5.1) mmol/L Chloride 102 (96-108) mmol/L Carbon Dioxide 28 (22-29) mmol/L Anion Gap 9 L (12-20) BUN 9 (9-16) mg/dL Creatinine 0.91 (0.5-1.4) mg/dL Estim Creat Clear Calc 53.2 Estimated GFR > 60 Random Glucose 91 (60-115) mg/dL Lactic Acid 0.6 (0.5-2.0) mmol/L Calcium 8.9 (8.4-10.2) mg/dL Magnesium 2.1 (1.6-2.6) mg/dL Total Bilirubin 0.2 (0.0-1.0) mg/dL Direct Bilirubin < 0.2 (0.0-0.5) mg/dL AST 15 (5-31) U/L ALT 10 (0-31) U/L Alkaline Phosphatase 79 (39-117) U/L Troponin I High Sens < 2.7 (<3.5-17.0) ng/L B-Natriuretic Peptide 1214 H (<100) pg/mL Total Protein 6.1 L (6.5-8.0) g/dL Albumin 3.6 (3.5-5.0) g/dL TSH 1.02 (0.32-4.0) uIU/mL Urine Color Dark Yellow Urine Appearance Turbid Urine pH 7.0 (5.0-9.0) Ur Specific [place] 1.010 (1.005-1.025) Urine Protein Negative (Neg-Trace) mg/dL Urine Glucose (UA) Negative (Negative) mg/dL Urine Ketones Negative (Negative) mg/dL Urine Blood Small (1+) H (Negative) Urine Nitrite Positive H (Negative) Ur Leukocyte Esterase Large (3+) H (Negative) Urine RBC 0-2 (0-2) /HPF Urine WBC >50 H (0-5) /HPF Ur Squamous Epith Cells 0-2 (0-2) /HPF Urine Bacteria 4+ (None Seen) Hyaline Casts 0-2 (0-2) /LPF Stool Occult Blood (NEGATIVE) Urine Opiates Screen Not Detected (Not Detect) Urine Fentanyl Screen Not Detected (Not Detect) Ur Barbiturates Screen Not Detected (Not Detect) Ur Phencyclidine Scrn Not Detected (Not Detect) Ur Amphetamines Screen Not Detected (Not Detect) U Benzodiazepines Scrn Not Detected (Not Detect) Urine Cocaine Screen Not Detected (Not Detect) U Marijuana (THC) Screen Not Detected (Not Detect) Blood Type Antibody Screen 08/25/23 08/25/23 08/25/23 Range/Units 19:46 20:02 20:30 WBC 5.6 (4.8-10.8) X10*3/uL RBC 3.78 L (4.20-5.50) X10*6/uL Hgb 10.6 L (12.0-16.0) g/dl Hct 36.1 L (37.0-47.0) % MCV 95.5 D (80.0-98.0) fL MCH 28.0 (27.0-33.0) pg MCHC 29.4 L (31.0-35.0) g/dl RDW 13.0 (11.0-16.0) % Plt Count 169 D (160-400) X10*3/uL MPV 10.5 (9.4-12.3) fL Immature Gran % (Auto) 0.4 (0.0-0.4) % Neut % (Auto) 67.7 (45-73) % Lymph % (Auto) 21.5 (20-40) % [place] % (Auto) 7.9 (2-11) % Eos % (Auto) 2.0 (0-4) % Baso % (Auto) 0.5 (0-2) % Lymph # (Auto) 1.2 (1.2-4.9) X10*3/uL [place] # (Auto) 0.4 (0.1-1.2) X10*3/uL Eos # (Auto) 0.1 (0.0-0.4) X10*3/uL Baso # (Auto) 0.0 (0.0-0.2) X10*3/uL Abs Immat Gran (auto) 0.02 (0.00-0.03) X10*3/uL Absolute Neuts (auto) 3.8 (2.0-8.3) x10*3/uL Absolute Nucleated RBC 0.000 (0.0-0.012) X10*3/uL Nucleated RBC % (auto) 0.0 (0.0-0.2) /100WBC Hold Purple Top SEE NOTE PT (11.1-13.3) SEC INR (0.9-1.1) APTT (26.0-36.8) SEC Sodium (135-145) mmol/L Potassium (3.3-5.1) mmol/L Chloride (96-108) mmol/L Carbon Dioxide (22-29) mmol/L Anion Gap (12-20) BUN (9-16) mg/dL Creatinine (0.5-1.4) mg/dL Estim Creat Clear Calc Estimated GFR Random Glucose (60-115) mg/dL Lactic Acid (0.5-2.0) mmol/L Calcium (8.4-10.2) mg/dL Magnesium (1.6-2.6) mg/dL Total Bilirubin (0.0-1.0) mg/dL Direct Bilirubin (0.0-0.5) mg/dL AST (5-31) U/L ALT (0-31) U/L Alkaline Phosphatase (39-117) U/L Troponin I High Sens (<3.5-17.0) ng/L B-Natriuretic Peptide (<100) pg/mL Total Protein (6.5-8.0) g/dL Albumin (3.5-5.0) g/dL TSH (0.32-4.0) uIU/mL Urine Color Urine Appearance Urine pH (5.0-9.0) Ur Specific [place] (1.005-1.025) Urine Protein (Neg-Trace) mg/dL Urine Glucose (UA) (Negative) mg/dL Urine Ketones (Negative) mg/dL Urine Blood (Negative) Urine Nitrite (Negative) Ur Leukocyte Esterase (Negative) Urine RBC (0-2) /HPF Urine WBC (0-5) /HPF Ur Squamous Epith Cells (0-2) /HPF Urine Bacteria (None Seen) Hyaline Casts (0-2) /LPF Stool Occult Blood POSITIVE (NEGATIVE) Urine Opiates Screen (Not Detect) Urine Fentanyl Screen (Not Detect) Ur Barbiturates Screen (Not Detect) Ur Phencyclidine Scrn (Not Detect) Ur Amphetamines Screen (Not Detect) U Benzodiazepines Scrn (Not Detect) Urine Cocaine Screen (Not Detect) U Marijuana (THC) Screen (Not Detect) Blood Type O Positive Antibody Screen NEGATIVE Discharge Plan Discharge Clinical Impression: Interstitial cystitis, CHF exacerbation, Anemia Patient Disposition: Admitted As Inpatient
[2023-08-25 14:15] LABS: MANUAL DIFF FLAG NO
[2023-08-25 14:19] LABS: Basophils Percent Auto 0.5 % (0-2); Eosinophils Absolute Auto 0.1 X10*3/uL (0.0-0.4); Eosinophils Percent Auto 1.8 % (0-4); Hematocrit 32.1 % (37.0-47.0); Hemoglobin 10.2 g/dl (12.0-16.0); Imm Gran Abs Auto 0.03 X10*3/uL (0.00-0.03); Imm Gran Pct Auto 0.5 % (0.0-0.4); Lymphocytes Percent Auto 17.1 % (20-40); Mean Corpuscular HGB Conc 31.8 g/dl (31.0-35.0); Mean Corpuscular Hemoglobin 27.9 pg (27.0-33.0); Mean Corpuscular Volume 87.9 fL (80.0-98.0); Mean Platelet Volume 9.7 fL (9.4-12.3); Monocytes Absolute Auto 0.5 X10*3/uL (0.1-1.2); Monocytes Percent Auto 8.5 % (2-11); Neutrophils Absolute Auto 4.3 x10*3/uL (2.0-8.3); Neutrophils Percent Auto 71.6 % (45-73); Platelet Count 231 X10*3/uL (160-400); Red Blood Count 3.65 X10*6/uL (4.20-5.50); Red Cell Distribution Width 12.9 % (11.0-16.0)
[2023-08-25 14:40] LABS: Alanine Aminotransferase 10 U/L (0-31); Albumin Level 3.6 g/dL (3.5-5.0); Alkaline Phosphatase 79 U/L (39-117); Anion Gap 9 (12-20); Aspartate Amino Transferase 15 U/L (5-31); B Type Natriuretic Peptide 1214 pg/mL (<100); Bilirubin Direct < 0.2 mg/dL (0.0-0.5); Bilirubin Total 0.2 mg/dL (0.0-1.0); Blood Urea Nitrogen 9 mg/dL (9-16); Calcium 8.9 mg/dL (8.4-10.2); Carbon Dioxide 28 mmol/L (22-29); Chloride 102 mmol/L (96-108); Creatinine Clr Calc Pharmacy 53.2; Estimated Glomerular Filt Rate > 60; Glucose Random 91 mg/dL (60-115); Magnesium 2.1 mg/dL (1.6-2.6); Potassium 5.2 mmol/L (3.3-5.1); Sodium 134 mmol/L (135-145); Total Protein 6.1 g/dL (6.5-8.0)
[2023-08-25 14:41] LABS: INTERNATIONAL NORM RATIO 1.9 (0.9-1.1); Prothrombin Time 22.8 SEC (11.1-13.3)
[2023-08-25 14:44] LABS: Partial Thromboplastin Time 41.6 SEC (26.0-36.8)
[2023-08-25 14:47] LABS: Troponin-I High Sensitivity < 2.7 ng/L (<3.5-17.0)
[2023-08-25 14:55] LABS: TSH reflex Free T4 1.02 uIU/mL (0.32-4.0)
--- NOTE | 2023-08-25 15:13 | PC.NURSE ---
Addendum entered by Mehreen Roman RN 08/25/23 15:18: symptoms include: hematuria, weakness, swollen ankles, bloody stools, all symptoms have persisted x 1 year, bloody stools worsening in the last few weeks per son at bedside. Original Note: Spoke to patient and son extensively about patient's current and past symptoms, asked patient to change into hospital gown, informed that we are awaiting test results at this time. Resting comfortably in wheelchair at this time
[2023-08-25 15:39] LABS: Appearance Urine Turbid; Color Urine Dark Yellow; Glucose Urine UA Negative (Negative); Leukocyte Esterase Urine Large (3+) (Negative); Nitrite Urine Positive (Negative); UMIC TRIGGER UACC YES; Urine Blood Small (1+) (Negative); Urine Ketones Negative (Negative); Urine Protein Negative (Neg-Trace)
[2023-08-25 15:43] VITALS: BP 151/53; PULSE 64; RESP 16; TEMP 36.3; O2SAT 97
[2023-08-25 15:45] LABS: Amphetamine Screen Urine Not Detected (Not Detect); Barbiturates, Urine Not Detected (Not Detect); Benzodiazepines Screen Urine Not Detected (Not Detect); Cannabinoid Screen Urine Not Detected (Not Detect); Cocaine Screen Urine Not Detected (Not Detect); Fentanyl, urine Not Detected (Not Detect); Opiate Screen Urine Not Detected (Not Detect); Phencyclidine Screen Urine Not Detected (Not Detect)
[2023-08-25 16:07] LABS: Bacteria Urine 4+ (None Seen); Hyaline Casts Urine 0-2 /LPF (0-2); RBC Urine 0-2 /HPF (0-2); Squamous Epithelial Cell Urine 0-2 /HPF (0-2); UACC Culture Trigger YES; WBC Urine >50 /HPF (0-5)
--- NOTE | 2023-08-25 16:30 | ED_ITS ---
HPI - Altered Mental Status General Chief Complaint: Altered Mental Status Stated Complaint: Delirium Blood in Urine Time Seen by Provider: 08/25/23 16:01 History of Present Illness HPI narrative: Patient is a 72-year-old female with a history anemia in the past with multiple transfusions in the past history of atrial fibrillation currently on warfarin history of aortic valve replacement. History of interstitial cystitis. History of congestive heart failure with preserved EF. Patient claims that because she was having diarrhea she elected to stop her water pill for 3 days. Noticing increasing swelling to the ankle. Noticing generalized malaise weakness. There is no fever no chills. While patient was in triage she also had an episode of headache. Patient had an episode of question TIA on Thursday her eyes rolled back patient is started being confused. There was no coughing or congestion or upper respiratory symptoms. Positive generalized malaise. Currently not on antibiotics. Related Data Home Medications Medication Instructions Recorded Confirmed escitalopram oxalate 20 mg tablet 20 mg PO DAILY 10/30/21 06/02/23 (Lexapro) furosemide 40 mg tablet (Lasix) 40 mg PO DAILY 10/30/21 06/02/23 gabapentin 100 mg capsule 200 mg PO TID 10/30/21 06/02/23 (Neurontin) losartan 25 mg tablet (Cozaar) 25 mg PO DAILY 10/30/21 06/02/23 metoprolol tartrate 100 mg tablet 100 mg PO BID 10/30/21 06/02/23 (Lopressor) potassium chloride 10 mEq 10 meq PO DAILY 10/30/21 06/02/23 tablet,extended release (K-Tab) doxepin 25 mg capsule 1 cap PO BEDTIME 11/14/21 06/02/23 lorazepam 1 mg tablet 1 mg PO BID PRN Anxiety 11/14/21 06/02/23 albuterol sulfate 2.5 mg/3 mL 1 vial inhalation Q4H PRN wheezing 03/17/22 06/02/23 (0.083 %) solution for nebulization biotin 2,500 mcg capsule 2,500 mcg PO DAILY 03/17/22 06/02/23 dexlansoprazole 60 mg 1 cap PO DAILY 03/17/22 06/02/23 capsule,biphase delayed release ergocalciferol (vitamin D2) 1,250 1,250 mcg PO WE 03/17/22 06/02/23 mcg (50,000 unit) capsule escitalopram oxalate 5 mg tablet 1 tab PO DAILY 03/17/22 06/02/23 magnesium 250 mg tablet 250 mg PO DAILY 03/17/22 06/02/23 vitamin B complex 1 tab PO DAILY 03/17/22 06/02/23 warfarin 2 mg tablet (Jantoven) 4 mg PO DAILY 03/17/22 06/02/23 torsemide 20 mg tablet 1 tab PO DAILY 07/28/22 06/02/23 albuterol sulfate 90 mcg/actuation 2 puff inhalation Q4H PRN wheezing 10/16/22 06/02/23 aerosol inhaler (Ventolin HFA) dexlansoprazole 30 mg 30 mg PO DAILY 05/29/23 06/02/23 capsule,biphase delayed release gabapentin 300 mg capsule 300 mg PO TID 05/29/23 06/02/23 Previous Rx's Medication Instructions Recorded ferrous sulfate 325 mg (65 mg 325 mg PO BID #60 tabs 09/12/22 iron) tablet (Feosol) solifenacin 10 mg tablet (Vesicare) 10 mg PO DAILY 90 days #90 tabs 10/16/22 fluticasone furoate 100 1 ea inhalation DAILY 30 days #60 11/04/22 mcg-vilanterol 25 mcg/dose ea inhalation powder (Breo Ellipta) ascorbic acid (vitamin C) 1,000 mg 1 g PO DAILY 90 days #90 tabs 01/22/23 tablet polyethylene glycol 3350 17 gram 17 g PO BID #14 ea 02/25/23 oral powder packet estradiol 10 mcg vaginal tablet 10 mcg vaginal 2XW 28 days #8 tabs 04/13/23 (Yuvafem) trimethoprim 100 mg tablet 100 mg PO BEDTIME 90 days #90 tabs 04/13/23 nitrofurantoin macrocrystal 100 mg 100 mg PO BID 14 days #28 caps 05/31/23 capsule vibegron 75 mg tablet (Gemtesa) 75 mg PO DAILY 90 days #90 tabs 07/30/23 amoxicillin 875 mg-potassium 1 tab PO BID UTI 7 days #14 tabs 08/05/23 clavulanate 125 mg tablet fluconazole 150 mg tablet 150 mg PO Q2D yeast 2 doses #2 08/05/23 tabs methenamine hippurate 1 gram tablet 1 g PO DAILY #90 tabs 08/24/23 simvastatin 40 mg tablet (Zocor) 40 mg PO DAILY 90 days #90 tabs 08/24/23 Allergies Allergy/AdvReac Type Severity Reaction Status Date / Time adhesive [ADHESIVE] Allergy Unknown LOCAL Verified 08/25/23 12:07 REACTION Review of Systems 2 Review of Systems: Positive generalized malaise Positive leg swelling Positive headache Positive shortness of breath Positive history of urinary tract infection History of diarrhea Yes all other systems are reviewed and are negative PMFSH Past Medical History Attestation statement: The following information was validated with the patient. Medical History Abnormal colonoscopy (~04/03/22) Wheezing Anemia Urinary incontinence Right carpal tunnel syndrome Post cardiotomy syndrome PTSD (post-traumatic stress disorder) Osteoarthritis, hip, bilateral Interstitial cystitis Lipid disorder Insomnia Generalized anxiety disorder with panic attacks Major depression, recurrent History of ulcerative colitis Chronic GERD Diastolic congestive heart failure Paroxysmal atrial fibrillation Age related osteoporosis Asthma, moderate persistent Anticoagulant long-term use Iron deficiency anemia Establishing care with new doctor, encounter for Hypertension, essential Surgical History Hx of rotator cuff surgery History of arthroplasty of both knees Hx of hysterectomy Status post mitral valve replacement Status post aortic valve replacement History of kyphoplasty History of artificial heart valve Family History Family History Daughter Mental health disorder Substance use disorder Father Emphysema lung Mother Heart disease Stroke Pacemaker Arthritis Family/Other Colon cancer Sister Crohn's disease Social History Social History Household Members: Children Household Members Other:: son Housing: Apartment Are you a primary respiratory care program director to a significant other at home: No Do you presently have visiting nurse or other home services: No Alcohol intake: never Patient Tobacco Use Status: Former Tobacco user Quit Date: 28 yrs ago Smoked in Last 30 Days: No e-Cigarette/Vaping Use: Never Used Use of substances other than those prescribed or required for medical reasons: No Substance Use Type: Marijuana Advance Directives: Yes Advance Directives on File: Yes Advance Directives Date on File: 03/17/22 service: No Current occupational status: retired Cognitive needs: No Hearing needs: No Vision needs: Yes Physical Exam ED Vital Signs: Vital Signs - 24 hr 08/25/23 13:45 08/25/23 15:43 08/25/23 19:10 Temperature 98.7 F 97.4 F Pulse Rate 50 64 54 Respiratory Rate 16 16 16 Blood Pressure 152/54 H 151/53 H 157/60 H Pulse Oximetry 93 97 94 Oxygen Delivery Method Room Air Room Air Room Air BMI result Body Mass Index 40.4 Appearance: Alert. Oriented X3. No acute distress. Eyes: Pupils equal, round and reactive to light. ENT: Pharynx normal. Neck: Normal inspection. Neck supple. No lymph nodes noted. No crepitus CVS: Irregularly irregular Respiratory: Diminished breath sounds bilaterally Abdomen: Soft and nontender. No rigidity. No distention. good BS x4 Skin: Skin warm and dry. Normal skin color. Normal skin turgor. Extremities: 2+ lower extremity edema. Neurovascular intact to all extremities. No Lacerations. No Rash Neuro: Oriented X 3. No motor deficit. No sensory deficit. Moving all extermities. No slurred speech Medications Administered Discontinued Medications Generic Name Dose Route Start Last Admin Trade Name Freq PRN Reason Stop Dose Admin Ceftriaxone Sodium 1 gm/ 50 mls @ 100 mls/hr 08/25/23 16:34 08/25/23 19:11 Sodium Chloride IV 08/25/23 17:03 Infused ONCE ONE Infusion Medical Decision Making Medical Decision Making [facility] Narrative: Patient has a history of anemia. Presented today with having generalized malaise weakness. Feeling tired. Patient also had diarrhea for few days and elected not to take her water pill. Has a history of being on Coumadin. Question headache earlier. Patient's CT scan of the head was grossly negative for any acute evidence of bleeding. No evidence for fracture on the CT scan. Urine was grossly infected. Previous culture results was reviewed. Started patient on Rocephin. Patient's lactate was normal there has no evidence for severe sepsis. Patient's chest x-ray showed mild CHF patient's showed an leads not short of breath. Satting normal. BNP elevated consistent with having congestive heart failure. Patient's BNP is 1200. Patient's hemoglobin came back at approximately 10. This is about the same as baseline of 11. Her INR is 1.9 close to being therapeutic. Will admit patient for further evaluation treatment of UTI as the heart failure TSH was normal. At 07:50 were able to finally do a rectal exam on the patient. There was melanotic stool noted. Patient is on Coumadin INR is 1.95. Will start patient on Protonix. Will monitor carefully. Type and screen was sent. Differential Diagnosis Differential Diagnoses: The differential diagnosis associated with the presentation includes Congestive heart failure, anemia, Admission/Observation Consideration of admission/observation: Escalation of care including admission/observation considered Consult Healthcare Provider Management of the patient was discussed with: Hospitalist Lab Data [facility] Lab Attestation statement: I reviewed the patient's lab results. 08/25/23 14:10 08/25/23 14:10 Labs: Lab Results 08/25/23 08/25/23 08/25/23 Range/Units 14:10 15:27 17:18 WBC 6.0 (4.8-10.8) X10*3/uL RBC 3.65 L (4.20-5.50) X10*6/uL Hgb 10.2 L (12.0-16.0) g/dl Hct 32.1 L (37.0-47.0) % MCV 87.9 (80.0-98.0) fL MCH 27.9 (27.0-33.0) pg MCHC 31.8 (31.0-35.0) g/dl RDW 12.9 (11.0-16.0) % Plt Count 231 (160-400) X10*3/uL MPV 9.7 (9.4-12.3) fL Immature Gran % (Auto) 0.5 H (0.0-0.4) % Neut % (Auto) 71.6 (45-73) % Lymph % (Auto) 17.1 L (20-40) % Adams % (Auto) 8.5 (2-11) % Eos % (Auto) 1.8 (0-4) % Baso % (Auto) 0.5 (0-2) % Lymph # (Auto) 1.0 L (1.2-4.9) X10*3/uL Adams # (Auto) 0.5 (0.1-1.2) X10*3/uL Eos # (Auto) 0.1 (0.0-0.4) X10*3/uL Baso # (Auto) 0.0 (0.0-0.2) X10*3/uL Abs Immat Gran (auto) 0.03 (0.00-0.03) X10*3/uL Absolute Neuts (auto) 4.3 (2.0-8.3) x10*3/uL Absolute Nucleated RBC 0.000 (0.0-0.012) X10*3/uL Nucleated RBC % (auto) 0.0 (0.0-0.2) /100WBC PT 22.8 H D (11.1-13.3) SEC INR 1.9 H (0.9-1.1) APTT 41.6 H (26.0-36.8) SEC Sodium 134 L (135-145) mmol/L Potassium 5.2 H (3.3-5.1) mmol/L Chloride 102 (96-108) mmol/L Carbon Dioxide 28 (22-29) mmol/L Anion Gap 9 L (12-20) BUN 9 (9-16) mg/dL Creatinine 0.91 (0.5-1.4) mg/dL Estim Creat Clear Calc 53.2 Estimated GFR > 60 Random Glucose 91 (60-115) mg/dL Lactic Acid 0.6 (0.5-2.0) mmol/L Calcium 8.9 (8.4-10.2) mg/dL Magnesium 2.1 (1.6-2.6) mg/dL Total Bilirubin 0.2 (0.0-1.0) mg/dL Direct Bilirubin < 0.2 (0.0-0.5) mg/dL AST 15 (5-31) U/L ALT 10 (0-31) U/L Alkaline Phosphatase 79 (39-117) U/L Troponin I High Sens < 2.7 (<3.5-17.0) ng/L B-Natriuretic Peptide 1214 H (<100) pg/mL Total Protein 6.1 L (6.5-8.0) g/dL Albumin 3.6 (3.5-5.0) g/dL TSH 1.02 (0.32-4.0) uIU/mL Urine Color Dark Yellow Urine Appearance Turbid Urine pH 7.0 (5.0-9.0) Ur Specific [place] 1.010 (1.005-1.025) Urine Protein Negative (Neg-Trace) mg/dL Urine Glucose (UA) Negative (Negative) mg/dL Urine Ketones Negative (Negative) mg/dL Urine Blood Small (1+) H (Negative) Urine Nitrite Positive H (Negative) Ur Leukocyte Esterase Large (3+) H (Negative) Urine RBC 0-2 (0-2) /HPF Urine WBC >50 H (0-5) /HPF Ur Squamous Epith Cells 0-2 (0-2) /HPF Urine Bacteria 4+ (None Seen) Hyaline Casts 0-2 (0-2) /LPF Urine Opiates Screen Not Detected (Not Detect) Urine Fentanyl Screen Not Detected (Not Detect) Ur Barbiturates Screen Not Detected (Not Detect) Ur Phencyclidine Scrn Not Detected (Not Detect) Ur Amphetamines Screen Not Detected (Not Detect) U Benzodiazepines Scrn Not Detected (Not Detect) Urine Cocaine Screen Not Detected (Not Detect) U Marijuana (THC) Screen Not Detected (Not Detect) Independent Interpretation I performed an independent interpretation of an: EKG (Sinus with a right bundle branch block heart rate is proximally 60), Plain X-Ray and CT Scan (No evidence of intracranial bleed no fracture) Interpretation: Question mild congestion Radiology Impression Discussion of test interpretation with radiology: I have reviewed the radiologist's reading. External Record Review External record reviewed: Inpatient record Chronic Conditions Patient?s care impacted by: Hypertension History of heart valve replacement. History of being on warfarin. History of UTI. Critical Care Time Critical Care Time Critical Care Time: Yes Total Critical Care Time: 40 Attestation: I have personally provided 40 minutes of critical care time exclusive of time spent on separately billable procedures. ?Time includes review of lab data, radiology results, discussion with consultants, and monitoring for potential decompensation. ?Interventions were performed as documented above Discharge Plan Discharge Clinical Impression: Interstitial cystitis, CHF exacerbation, Anemia Patient Disposition: Admitted As Inpatient
[2023-08-25 17:45] LABS: Lactic Acid 0.6 mmol/L (0.5-2.0)
[2023-08-25] MEDS: cefTRIAXone sodium 1 GM in 0.9 % Sodium Chloride 50 ML IV (18:21)
[2023-08-25 19:10] VITALS: BP 157/60; PULSE 54; RESP 16; O2SAT 94
--- NOTE | 2023-08-25 19:18 | PC.NURSE ---
Updated patient and son about current plan of care, both with multiple questions, all questions answered, patient wants to eat, will follow up with provider regarding food.
[2023-08-25 20:02] LABS: OBS Int Ctl Valid YES; OBS1 POSITIVE (NEGATIVE)
[2023-08-25] MEDS: Pantoprazole Sodium 40 MG/10 ML VIAL IVPUSH (20:02)
[2023-08-25 20:05] LABS: MANUAL DIFF FLAG NO
[2023-08-25] MEDS: Furosemide 40 MG/4 ML VIAL IVPUSH (20:05)
--- NOTE | 2023-08-25 20:11 | MHC.EDTECH ---
TYPE AND SCREEN AND CBC DRAWN AND SENT TO LAB ,PATIENT WAS ASSISTED TO CHANGE INTO HOSPITAL GOWN ,PATIENT WAS HOOKED UP TO [facility]IST[facility] ,PURE WICK IN PLACE ,PATIENT SON IS TAKING ALL BELONGING HOME EXCEPT FOR GLASSES .
[2023-08-25 20:20] LABS: Basophils Percent Auto 0.5 % (0-2); Eosinophils Absolute Auto 0.1 X10*3/uL (0.0-0.4); Hematocrit 36.1 % (37.0-47.0); Hemoglobin 10.6 g/dl (12.0-16.0); Imm Gran Abs Auto 0.02 X10*3/uL (0.00-0.03); Imm Gran Pct Auto 0.4 % (0.0-0.4); Lymphocytes Absolute Auto 1.2 X10*3/uL (1.2-4.9); Lymphocytes Percent Auto 21.5 % (20-40); Mean Corpuscular HGB Conc 29.4 g/dl (31.0-35.0); Mean Corpuscular Volume 95.5 fL (80.0-98.0); Mean Platelet Volume 10.5 fL (9.4-12.3); Monocytes Absolute Auto 0.4 X10*3/uL (0.1-1.2); Monocytes Percent Auto 7.9 % (2-11); Neutrophils Absolute Auto 3.8 x10*3/uL (2.0-8.3); Neutrophils Percent Auto 67.7 % (45-73); Platelet Count 169 X10*3/uL (160-400); Red Blood Count 3.78 X10*6/uL (4.20-5.50); White Blood Count 5.6 X10*3/uL (4.8-10.8)
--- NOTE | 2023-08-25 20:47 | PHA.MEDREC ---
Pharmacy Consult ? Medication Reconciliation Pharmacy has completed the medication reconciliation. Patient son reported medications. Reported Ferrous sulfate was decrease to to once at bedtime, patient had a reaction to the ferrous sulfate that was blue but is fine with the red tablet. He reported patient takes Gabapentin 300 mg BID instead of TID. When asked about the warfarin, report either 1 or 2 tablets because it depnd on her INR and it changes often. Patient took 1 tablet yesterday and is suppose to take 2 tablets today. Recently had a high INR. Son reported that patient had pychosis with melatonin, therefore does not want patient to have. He also stated that he does not want patient to have ambien either. Patient has not start Yuva[employer]em therefore left unconfirmed. Coco Gutierrez, PharmD
[2023-08-25] MEDS: Piperacillin Sodium/Tazobactam 3.375 GM in 0.9 % Sodium Chloride 50 ML IV (21:04)
[2023-08-25] MEDS: LORazepam 1 MG TABLET PO (21:04)
[2023-08-25] MEDS: Lactated Ringers 1,000 ML 80 ML IVCONT (21:05)
[2023-08-25] MEDS: Doxepin HCl 25 MG CAPSULE PO (21:42)
[2023-08-25] MEDS: Atorvastatin Calcium 20 MG TABLET PO (21:42)
[2023-08-25] MEDS: Acetaminophen 325 MG TABLET 650 MG PO (21:43)
[2023-08-25 22:00] VITALS: BP 150/71; PULSE 50; RESP 15; TEMP 36.6; O2SAT 100
--- NOTE | 2023-08-26 00:03 | P.HPHOSP_ITS ---
History of Present Illness Date of Service: 08/25/23 Attending physician on admission: Dary Tyler Chief Complaint: Hematuria Yaneth Rodriguez is a 72 years old woman with past medical history significant for interstitial cystitis (recurrent UTIs), HFpEF, atrial fibrillation on warfarin, ulcerative colitis, asthma, s/p mitral and aortic valve replacement (both prosthetic and complicated with RV rupture s/p repair)morbid obesity, essential hypertension, GERD, anxiety + depression and hyperlipidemia presents to the emergency department complaining of generalized weakness and confusion. She also reports dyspnea on exertion but denied chest pain. Has occasional cough. HPI was mostly provided by patient's son who was at bedside. Son mentioned that patient has been having intermittent episodes intermittent gross hematuria, incontinence and abdominal discomfort. She is nausea but denied episodes of vomiting or diarrhea. She has not been taking her diuretics over the last couple of days and noted her legs are swollen. Some things that the patient had a TIA on Thursday because her eyes rolled back. Patient took a course of amoxicillin on August 04. She was seen today by Urology as an outpatient. There is no history of tobacco smoking, alcohol abuse or illicit drug use. Chart review: Multiple urine cultures: E coli (pansensitive), Klebsiella pneumoniae (resistant to ampicillin), Enterococcus faecalis (resistant to levofloxacin, vancomycin and tetracycline) and Raoultella planticola In the ED, she was found to have stable vital signs. There is a mild degree of bradycardia. There is no reported fever and O2 sats are normal on room air. Blood workup showed initial hemoglobin of 10.2. There is mild hyponatremia and mild hyperkalemia. There are no other electrolyte imbalances. BUN creatinine are normal. LFTs are normal. BNP is 1214. TSH is 1.02. Head CT scan showed no acute intracranial abnormality. CXR showed stable enlargement of the cardiac silhouette and question pulmonary venous redistribution. ECG showed sinus bradycardia with PACs and bifascicular block. ED tx: Ceftriaxone 1 g IV, Lasix 40 mg IV, pantoprazole 40 mg IV, Ativan 1 mg PO. Review of Systems 2 Review of Systems: All 12 systems were reviewed and normal except as noted in HPI. [facility] Medical History Abnormal colonoscopy (~04/03/22) Wheezing Anemia Urinary incontinence Right carpal tunnel syndrome Post cardiotomy syndrome PTSD (post-traumatic stress disorder) Osteoarthritis, hip, bilateral Interstitial cystitis Lipid disorder Insomnia Generalized anxiety disorder with panic attacks Major depression, recurrent History of ulcerative colitis Chronic GERD Diastolic congestive heart failure Paroxysmal atrial fibrillation Age related osteoporosis Asthma, moderate persistent Anticoagulant long-term use Iron deficiency anemia Establishing care with new doctor, encounter for Hypertension, essential Family History Daughter Mental health disorder Substance use disorder Father Emphysema lung Mother Heart disease Stroke Pacemaker Arthritis Family/Other Colon cancer Sister Crohn's disease Surgical History Hx of rotator cuff surgery History of arthroplasty of both knees Hx of hysterectomy Status post mitral valve replacement Status post aortic valve replacement History of kyphoplasty History of artificial heart valve Social History Household Members: Children Household Members Other:: son Housing: Apartment Are you a primary day care assistant to a significant other at home: No Do you presently have visiting nurse or other home services: No Alcohol intake: never Patient Tobacco Use Status: Former Tobacco user Quit Date: 28 yrs ago Smoked in Last 30 Days: No e-Cigarette/Vaping Use: Never Used Use of substances other than those prescribed or required for medical reasons: No Substance Use Type: Marijuana Advance Directives: Yes Advance Directives on File: Yes Advance Directives Date on File: 03/17/22 Nutrition Risks: No Nutritional Risk service: No Current occupational status: retired Cognitive needs: No Hearing needs: No Vision needs: Yes Meds Allergies Allergy/AdvReac Type Severity Reaction Status Date / Time adhesive [ADHESIVE] Allergy Unknown LOCAL Verified 08/25/23 20:32 REACTION melatonin Allergy PYSCHOSIS Verified 08/25/23 20:45 blue dye AdvReac Diarrhea Verified 08/25/23 20:46 Active Medications: Current Medications Acetaminophen (Acetaminophen 325 Mg Tablet) 650 mg PO Q6H PRN PRN Reason: Pain, Mild (Pain Scale 1-3) Last Admin: 08/25/23 21:43 Dose: 650 mg Albuterol Sulfate (Albuterol Sulfate (0.083%) 2.5 Mg/3 Ml Vial.Neb) 2.5 mg INHALE Q4H PRN PRN Reason: wheezing Artificial Tears (Artificial Tears 15 Ml Drops) 1 drop EYE-BOTH Q4H PRN PRN Reason: Dry Eye(S) Atorvastatin Calcium (Atorvastatin Calcium 20 Mg Tablet) 20 mg PO BEDTIME [facility] Last Admin: 08/25/23 21:42 Dose: 20 mg Doxepin HCl (Doxepin Hcl 25 Mg Capsule) 25 mg PO BEDTIME JENNIFER Last Admin: 08/25/23 21:42 Dose: 25 mg Escitalopram Oxalate (Escitalopram Oxalate 5 Mg Tablet) 5 mg PO DAILY [facility] Escitalopram Oxalate (Escitalopram Oxalate 20 Mg Tablet) 20 mg PO DAILY [facility] Fluticasone/Vilanterol (Fluticasone/Vilanterol 100/25 Blst.W.Dev) 1 puff INHALE RDAILY PRN PRN Reason: Wheezing Piperacillin Sod/Tazobactam (Sod 3.375 gm/ Sodium Chloride) 50 mls @ 100 mls/hr IV Q6H [facility] Last Infusion: 08/25/23 22:13 Dose: Infused Lactated Ringer's (Lr) 1,000 mls @ 80 mls/hr IVCONT .[id number] [facility] Last Admin: 08/25/23 21:05 Dose: 80 mls/hr Lorazepam (Lorazepam 1 Mg Tablet) 1 mg PO BEDTIME PRN PRN Reason: anxiety Losartan Potassium (Losartan Potassium 25 Mg Tablet) 25 mg PO DAILY [facility]; Protocol Magnesium Oxide (Magnesium Oxide 400 Mg Tablet) 200 mg PO DAILY [facility] Metoprolol Tartrate (Metoprolol Tartrate 100 Mg Tablet) 100 mg PO BID JENNIFER; Protocol Multivitamins/Vitamin C (Multivitamin Tablet) 1 tab PO DAILY [facility] Pantoprazole Sodium (Pantoprazole Sodium 40 Mg/10 Ml Vial) 40 mg IVPUSH Q12H [facility] Sodium Chloride (0.9 % Sodium Chloride Flush 3 Ml Syringe) 3 ml IVFLUSH QSHIFT [facility] Tolterodine Tartrate (Tolterodine Tartrate La 4 Mg Cap.Er.24h) 4 mg PO DAILY [facility] Torsemide (Torsemide 20 Mg Tablet) 40 mg PO DAILY [facility]; Protocol Home Medications Medication Instructions Recorded Confirmed Last Taken Type escitalopram oxalate 20 mg tablet 20 mg PO DAILY 10/30/21 08/25/23 08/25/23 History (Lexapro) losartan 25 mg tablet (Cozaar) 25 mg PO DAILY 10/30/21 08/25/23 08/25/23 History metoprolol tartrate 100 mg tablet 100 mg PO BID 10/30/21 08/25/23 08/25/23 History (Lopressor) potassium chloride 10 mEq 10 meq PO DAILY 10/30/21 08/25/23 08/25/23 History tablet,extended release (K-Tab) doxepin 25 mg capsule 1 cap PO BEDTIME 11/14/21 08/25/23 08/24/23 History lorazepam 1 mg tablet 1 mg PO DAILY@1800 Anxiety 11/14/21 08/25/23 08/24/23 History albuterol sulfate 2.5 mg/3 mL 1 vial inhalation Q4H PRN wheezing 03/17/22 08/25/23 02/21/23 08:00 History (0.083 %) solution for nebulization biotin 2,500 mcg capsule 2,500 mcg PO DAILY 03/17/22 08/25/23 08/25/23 History ergocalciferol (vitamin D2) 1,250 1,250 mcg PO WE 03/17/22 08/25/23 08/19/23 History mcg (50,000 unit) capsule escitalopram oxalate 5 mg tablet 1 tab PO DAILY 03/17/22 08/25/23 08/25/23 History magnesium 250 mg tablet 250 mg PO DAILY 03/17/22 08/25/23 08/25/23 History vitamin B complex 1 tab PO DAILY 03/17/22 08/25/23 08/25/23 History warfarin 2 mg tablet (Jantoven) 2 - 4 mg PO DAILY@1800 03/17/22 08/25/23 08/25/23 History torsemide 20 mg tablet 2 tab PO DAILY 07/28/22 08/25/23 08/25/23 History albuterol sulfate 90 mcg/actuation 2 puff inhalation Q4H PRN wheezing 10/16/22 08/25/23 02/21/23 08:00 History aerosol inhaler (Ventolin HFA) dexlansoprazole 30 mg 30 mg PO DAILY@1900 05/29/23 08/25/23 08/24/23 History capsule,biphase delayed release gabapentin 300 mg capsule 300 mg PO BID 05/29/23 08/25/23 08/25/23 History Lactobacillus acidophilus 1 cap PO BID 08/25/23 08/25/23 08/25/23 History (Acidophilus capsule) dextran 70-hypromellose (PF) 0.1 1 drp ophthalmic (eye) Q4H PRN Dry 08/25/23 08/25/23 Unknown History %-0.3 % eye drops in a dropperette Eye(S) (Artificial Tears (PF)) ferrous sulfate 325 mg (65 mg 325 mg PO BEDTIME 08/25/23 08/25/23 08/24/23 History iron) tablet (Feosol) fluticasone furoate 100 1 ea inhalation DAILY PRN Wheezing 08/25/23 08/25/23 Unknown History mcg-vilanterol 25 mcg/dose inhalation powder (Breo Ellipta) polyethylene glycol 3350 17 gram 17 g PO BID PRN Constipation 08/25/23 08/25/23 Unknown History oral powder packet simvastatin 40 mg tablet (Zocor) 40 mg PO BEDTIME 08/25/23 08/25/23 08/24/23 History Physical Exam 2 Vital Signs and Narrative: Vital Signs: Last Vital Signs Temp 97.8 F 08/25/23 22:00 Pulse 50 08/25/23 22:00 Resp 15 08/25/23 22:00 BP 150/71 H 08/25/23 22:00 Pulse Ox 100 08/25/23 22:00 O2 Del Method Room Air 08/25/23 22:00 BMI result Body Mass Index 40.4 Constitutional - Awake and Alert, No apparent distress. Chronically ill. Obese HEENT - Pupils equally round. Normal sclerae Dry oral mucosa. Heart - Bradycardia. Irregular. (+) murmur. Lungs- Normal lung expansion, Normal respiratory effort, No respiratory distress, decreased breath sound at bases. Abdomen - Not distended. Increased bowel sounds Generalized discomfort to palpation.. No guarding. No rebound Extremities - Lower extremity swelling. No redness. No tenderness. Musculoskeletal - Normal inspection, normal ROM Skin - Warm/Dry Neurological - Alert & oriented x3. No focal weakness grossly noted. Normal speech. Psychological - Depressed affect Results Labs 08/26/23 01:37 08/25/23 14:10 Labs: Laboratory Results - last 24 hr 08/25/23 08/25/23 08/25/23 14:10 15:27 17:18 MCV 87.9 MCH 27.9 MCHC 31.8 RDW 12.9 Plt Count 231 MPV 9.7 Immature Gran % (Auto) 0.5 H Neut % (Auto) 71.6 Lymph % (Auto) 17.1 L [place] % (Auto) 8.5 Eos % (Auto) 1.8 Baso % (Auto) 0.5 Lymph # (Auto) 1.0 L [place] # (Auto) 0.5 Eos # (Auto) 0.1 Baso # (Auto) 0.0 Abs Immat Gran (auto) 0.03 Absolute Neuts (auto) 4.3 Absolute Nucleated RBC 0.000 Nucleated RBC % (auto) 0.0 Hold Purple Top PT 22.8 H D INR 1.9 H APTT 41.6 H Anion Gap 9 L Estim Creat Clear Calc 53.2 Estimated GFR > 60 Random Glucose 91 Lactic Acid 0.6 Calcium 8.9 Magnesium 2.1 Total Bilirubin 0.2 Direct Bilirubin < 0.2 AST 15 ALT 10 Alkaline Phosphatase 79 Troponin I High Sens < 2.7 B-Natriuretic Peptide 1214 H Total Protein 6.1 L Albumin 3.6 TSH 1.02 Urine Color Dark Yellow Urine Appearance Turbid Urine pH 7.0 Ur Specific [place] 1.010 Urine Protein Negative Urine Glucose (UA) Negative Urine Ketones Negative Urine Blood Small (1+) H Urine Nitrite Positive H Ur Leukocyte Esterase Large (3+) H Urine RBC 0-2 Urine WBC >50 H Ur Squamous Epith Cells 0-2 Urine Bacteria 4+ Hyaline Casts 0-2 Stool Occult Blood Urine Opiates Screen Not Detected Urine Fentanyl Screen Not Detected Ur Barbiturates Screen Not Detected Ur Phencyclidine Scrn Not Detected Ur Amphetamines Screen Not Detected U Benzodiazepines Scrn Not Detected Urine Cocaine Screen Not Detected U Marijuana (THC) Screen Not Detected Blood Type Antibody Screen 08/25/23 08/25/23 08/25/23 19:46 20:02 20:30 MCV 95.5 D MCH 28.0 MCHC 29.4 L RDW 13.0 Plt Count 169 D MPV 10.5 Immature Gran % (Auto) 0.4 Neut % (Auto) 67.7 Lymph % (Auto) 21.5 [place] % (Auto) 7.9 Eos % (Auto) 2.0 Baso % (Auto) 0.5 Lymph # (Auto) 1.2 [place] # (Auto) 0.4 Eos # (Auto) 0.1 Baso # (Auto) 0.0 Abs Immat Gran (auto) 0.02 Absolute Neuts (auto) 3.8 Absolute Nucleated RBC 0.000 Nucleated RBC % (auto) 0.0 Hold Purple Top SEE NOTE PT INR APTT Anion Gap Estim Creat Clear Calc Estimated GFR Random Glucose Lactic Acid Calcium Magnesium Total Bilirubin Direct Bilirubin AST ALT Alkaline Phosphatase Troponin I High Sens B-Natriuretic Peptide Total Protein Albumin TSH Urine Color Urine Appearance Urine pH Ur Specific [place] Urine Protein Urine Glucose (UA) Urine Ketones Urine Blood Urine Nitrite Ur Leukocyte Esterase Urine RBC Urine WBC Ur Squamous Epith Cells Urine Bacteria Hyaline Casts Stool Occult Blood POSITIVE Urine Opiates Screen Urine Fentanyl Screen Ur Barbiturates Screen Ur Phencyclidine Scrn Ur Amphetamines Screen U Benzodiazepines Scrn Urine Cocaine Screen U Marijuana (THC) Screen Blood Type O Positive Antibody Screen NEGATIVE Imaging Radiologist's Impressions: Impressions Head CT 08/25/23 14:45 IMPRESSION: 1. No acute intracranial pathology. 2. Chronic white matter small vessel ischemic changes. Chest X-Ray 08/25/23 18:04 IMPRESSION: Stable enlargement of the cardiac silhouette and question pulmonary venous redistribution. Assessment and Plan (1) Hyponatremia: Status: Acute (2) Acute heart failure with preserved ejection fraction (HFpEF): Status: Acute (3) Gross hematuria: Status: Acute (4) Anemia: Qualifiers: Anemia type: iron deficiency Iron deficiency anemia type: unspecified iron deficiency Qualified Code(s): D50.9 - Iron deficiency anemia, unspecified Status: Acute (5) Positive occult stool blood test: Status: Acute (6) Morbid obesity due to excess calories: Status: Acute (7) Paroxysmal atrial fibrillation: Status: Acute Plan Yaneth Rodriguez is a 72 years old woman with past medical history significant for interstitial cystitis (recurrent UTIs), ulcerative colitis and s/p mitral + aortic valve replacement (both prosthetic and complicated with RV rupture s/p repair) admitted with: * Gross hematuria likely secondary to UTI. Admit to hospitalist service. Start antibiotic therapy with Zosyn and gentle IVFs. Urine culture obtained -will follow results. Hold warfarin. Urology consult. * Occult blood test positive. No overt bleeding. Continue to monitor H&H (so far stable). Check CRP. Continue Protonix 40 mg IV twice daily. Hold warfarin. NPO. GI consult. * Iron deficiency anemia. F/U by Dr. Arriaga. H&H stable. Continue to monitor. * Mild hyperkalemia likely secondary to PO KCl. Hold potassium pills. Patient received Lasix IV. Continue to monitor K levels. * HFpEF. Patient complains of dyspnea on exertion. Normal O2 sat on room air. BNP is elevated and CXR showed ?pulmonary edema. Continue torsemide. * Lower extremity edema, bilateral secondary to above. Continue torsemide. * Paroxysmal atrial fibrillation. Continue metoprolol. Warfarin on hold due to hematuria. * Depression, anxiety + PTSD. Continue doxepin, Lexapro and Ativan. * Asthma. Not in acute exacerbation. Normal oxygen saturation on room air. Albuterol as needed. * Hyperlipidemia. Continue statin. * Morbid obesity. BMI 40.4 kg/m2. Weight loss. * Urinary incontinence. Continue Tolterodine. DVT prophylaxis: SCDs Code status: Full Patient will need hospitalization for at least 2 midnights for gross hematuria treatment and evaluation. Patient will need empiric IV antibiotic therapy and frequent monitoring of vital signs and labs evaluation by subspecialty. Quality Stroke Does the patient have a stroke diagnosis?: No VTE Prior VTE?: No VTE Risk Level:: Medical - moderate - high VTE Device Contraindication: Treatment Not Indicated VTE Drug Contraindication: N/A - Med Ordered
--- NOTE | 2023-08-26 00:19 | PC.NURSE ---
Took report from off-going RN at 2300 hours. Pt is a 72 y/o female who presents for rectal bleeding and UTI. Pt is pending a bed assignment [place] [facility] Has 22G left forearm with LR running at 80 mL/hr, and a pure wick in place. Will continue to monitor for changes.
[2023-08-26 00:29] VITALS: BP 132/75; PULSE 52; RESP 15; TEMP 36.4; O2SAT 95
--- NOTE | 2023-08-26 00:31 | MHC.EDTECH ---
0000 rounding done ,vitals taken ,patient resting quietly in bed .
[2023-08-26] MEDS: 0.9 % Sodium Chloride Flush 3 ML SYRINGE IVFLUSH ×2 (01:45→22:11)
[2023-08-26 02:09] LABS: Hemoglobin 10.1 g/dl (12.0-16.0)
[2023-08-26 02:42] VITALS: BP 148/65; PULSE 50; RESP 15; TEMP 36.5; O2SAT 94
--- NOTE | 2023-08-26 02:43 | MHC.EDTECH ---
0200 ROUNDING DONE ,PT ASLEEP ,VITALS TAKEN ,PATIENT WAS REPOSITION IN BED ,CALL WOOD WITHIN PATIENT REACH .
[2023-08-26] MEDS: Piperacillin Sodium/Tazobactam 3.375 GM in 0.9 % Sodium Chloride 50 ML IV ×4 (03:42→22:10)
[2023-08-26 05:21] LABS: MANUAL DIFF FLAG NO
[2023-08-26 05:23] LABS: Basophils Absolute Auto 0.1 X10*3/uL (0.0-0.2); Eosinophils Absolute Auto 0.2 X10*3/uL (0.0-0.4); Eosinophils Percent Auto 3.2 % (0-4); Hematocrit 31.6 % (37.0-47.0); Hemoglobin 10.1 g/dl (12.0-16.0); Imm Gran Abs Auto 0.03 X10*3/uL (0.00-0.03); Imm Gran Pct Auto 0.5 % (0.0-0.4); Lymphocytes Absolute Auto 1.1 X10*3/uL (1.2-4.9); Mean Corpuscular Hemoglobin 27.9 pg (27.0-33.0); Mean Corpuscular Volume 87.3 fL (80.0-98.0); Mean Platelet Volume 9.9 fL (9.4-12.3); Monocytes Absolute Auto 0.5 X10*3/uL (0.1-1.2); Monocytes Percent Auto 7.7 % (2-11); Neutrophils Absolute Auto 4.1 x10*3/uL (2.0-8.3); Neutrophils Percent Auto 68.6 % (45-73); Platelet Count 229 X10*3/uL (160-400); Red Blood Count 3.62 X10*6/uL (4.20-5.50); Red Cell Distribution Width 12.8 % (11.0-16.0)
[2023-08-26 05:41] LABS: Alanine Aminotransferase 9 U/L (0-31); Albumin Level 3.4 g/dL (3.5-5.0); Alkaline Phosphatase 71 U/L (39-117); Anion Gap 12 (12-20); Aspartate Amino Transferase 14 U/L (5-31); Bilirubin Total 0.3 mg/dL (0.0-1.0); Blood Urea Nitrogen 9 mg/dL (9-16); C Reactive Protein 1.02 mg/dL (< or = 0.50); Calcium 8.8 mg/dL (8.4-10.2); Carbon Dioxide 28 mmol/L (22-29); Chloride 101 mmol/L (96-108); Estimated Glomerular Filt Rate 58; Glucose Random 81 mg/dL (60-115); Potassium 4.1 mmol/L (3.3-5.1); Sodium 137 mmol/L (135-145); Total Protein 5.9 g/dL (6.5-8.0)
[2023-08-26 06:25] VITALS: BP 177/83; PULSE 50; RESP 16; O2SAT 95
--- NOTE | 2023-08-26 08:58 | MHC.CM.PN ---
PT REPORTS SHE WAS LIVING ALONE BUT HER SON/[employer] SUPERVISOR IS NOW LIVING WITH HER SHE REPORTS HE DOES TAKE GOOD CARE OF HER, BUT HE IS ALSO DEALING WITH MAJOR HEALTH CONDITIONS PT REPORTS SHE HAS A TRANSFER CHAIR, TWO WALKERS, ONE BY THE BED AND ONE IN THE CAR, AND A CANE SHE HAS A HCP ON FILE PCP: MARYANNE VALENTIN IMM DELIVERED DCP: PTS GOAL IS TO RETURN HOME WITH RESUMPTION OF [employer]PER[employer] SERVICES HER SON WILL TRANSPORT
--- NOTE | 2023-08-26 09:18 | PM.GICN ---
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 Currently admitted for management of possible heart failure exacerbation and hematuria. Gastroenterology has been consulted for positive stool occult test. [facility] Past Medical History Medical History Abnormal colonoscopy (~04/03/22) Wheezing Anemia Urinary incontinence Right carpal tunnel syndrome Post cardiotomy syndrome PTSD (post-traumatic stress disorder) Osteoarthritis, hip, bilateral Interstitial cystitis Lipid disorder Insomnia Generalized anxiety disorder with panic attacks Major depression, recurrent History of ulcerative colitis Chronic GERD Diastolic congestive heart failure Paroxysmal atrial fibrillation Age related osteoporosis Asthma, moderate persistent Anticoagulant long-term use Iron deficiency anemia Establishing care with new doctor, encounter for Hypertension, essential Family History Family History Daughter Mental health disorder Substance use disorder Father Emphysema lung Mother Heart disease Stroke Pacemaker Arthritis Family/Other Colon cancer Sister Crohn's disease Surgical History Surgical History Hx of rotator cuff surgery History of arthroplasty of both knees Hx of hysterectomy Status post mitral valve replacement Status post aortic valve replacement History of kyphoplasty History of artificial heart valve Social History Social History Household Members: Children Household Members Other:: son Housing: Apartment Are you a primary lawn care worker to a significant other at home: No Do you presently have visiting nurse or other home services: No Alcohol intake: never Patient Tobacco Use Status: Former Tobacco user Quit Date: 28 yrs ago Smoked in Last 30 Days: No e-Cigarette/Vaping Use: Never Used Use of substances other than those prescribed or required for medical reasons: No Substance Use Type: Marijuana Advance Directives: Yes Advance Directives on File: Yes Advance Directives Date on File: 03/17/22 Nutrition Risks: No Nutritional Risk service: No Current occupational status: retired Cognitive needs: No Hearing needs: No Vision needs: Yes Meds Allergies Allergy/AdvReac Type Severity Reaction Status Date / Time adhesive [ADHESIVE] Allergy Unknown LOCAL Verified 08/25/23 20:32 REACTION melatonin Allergy PYSCHOSIS Verified 08/25/23 20:45 blue dye AdvReac Diarrhea Verified 08/25/23 20:46 Active Medications: Current Medications Acetaminophen (Acetaminophen 325 Mg Tablet) 650 mg PO Q6H PRN PRN Reason: Pain, Mild (Pain Scale 1-3) Last Admin: 08/25/23 21:43 Dose: 650 mg Albuterol Sulfate (Albuterol Sulfate (0.083%) 2.5 Mg/3 Ml Vial.Neb) 2.5 mg INHALE Q4H PRN PRN Reason: wheezing Artificial Tears (Artificial Tears 15 Ml Drops) 1 drop EYE-BOTH Q4H PRN PRN Reason: Dry Eye(S) Atorvastatin Calcium (Atorvastatin Calcium 20 Mg Tablet) 20 mg PO BEDTIME JENNIFER Last Admin: 08/25/23 21:42 Dose: 20 mg Doxepin HCl (Doxepin Hcl 25 Mg Capsule) 25 mg PO BEDTIME JENNIFER Last Admin: 08/25/23 21:42 Dose: 25 mg Escitalopram Oxalate (Escitalopram Oxalate 5 Mg Tablet) 5 mg PO DAILY JENNIFER Escitalopram Oxalate (Escitalopram Oxalate 20 Mg Tablet) 20 mg PO DAILY JENNIFER Fluticasone/Vilanterol (Fluticasone/Vilanterol 100/25 Blst.W.Dev) 1 puff INHALE RDAILY PRN PRN Reason: Wheezing Piperacillin Sod/Tazobactam (Sod 3.375 gm/ Sodium Chloride) 50 mls @ 100 mls/hr IV Q6H [facility] Last Infusion: 08/26/23 05:47 Dose: Infused Lorazepam (Lorazepam 1 Mg Tablet) 1 mg PO BEDTIME PRN PRN Reason: anxiety Losartan Potassium (Losartan Potassium 25 Mg Tablet) 25 mg PO DAILY JENNIFER; Protocol Magnesium Oxide (Magnesium Oxide 400 Mg Tablet) 200 mg PO DAILY JENNIFER Metoprolol Tartrate (Metoprolol Tartrate 100 Mg Tablet) 100 mg PO BID JENNIFER; Protocol Multivitamins/Vitamin C (Multivitamin Tablet) 1 tab PO DAILY JENNIFER Pantoprazole Sodium (Pantoprazole Sodium 40 Mg/10 Ml Vial) 40 mg IVPUSH Q12H [facility] Sodium Chloride (0.9 % Sodium Chloride Flush 3 Ml Syringe) 3 ml IVFLUSH QSHIFT [facility] Last Admin: 08/26/23 06:59 Dose: Not Given Tolterodine Tartrate (Tolterodine Tartrate La 4 Mg Cap.Er.24h) 4 mg PO DAILY JENNIFER Torsemide (Torsemide 20 Mg Tablet) 40 mg PO DAILY JENNIFER; Protocol Home Medications Medication Instructions Recorded Confirmed Last Taken Type escitalopram oxalate 20 mg tablet 20 mg PO DAILY 10/30/21 08/25/23 08/25/23 History (Lexapro) losartan 25 mg tablet (Cozaar) 25 mg PO DAILY 10/30/21 08/25/23 08/25/23 History metoprolol tartrate 100 mg tablet 100 mg PO BID 10/30/21 08/25/23 08/25/23 History (Lopressor) potassium chloride 10 mEq 10 meq PO DAILY 10/30/21 08/25/23 08/25/23 History tablet,extended release (K-Tab) doxepin 25 mg capsule 1 cap PO BEDTIME 11/14/21 08/25/23 08/24/23 History lorazepam 1 mg tablet 1 mg PO DAILY@1800 Anxiety 11/14/21 08/25/23 08/24/23 History albuterol sulfate 2.5 mg/3 mL 1 vial inhalation Q4H PRN wheezing 03/17/22 08/25/23 02/21/23 08:00 History (0.083 %) solution for nebulization biotin 2,500 mcg capsule 2,500 mcg PO DAILY 03/17/22 08/25/23 08/25/23 History ergocalciferol (vitamin D2) 1,250 1,250 mcg PO WE 03/17/22 08/25/23 08/19/23 History mcg (50,000 unit) capsule escitalopram oxalate 5 mg tablet 1 tab PO DAILY 03/17/22 08/25/23 08/25/23 History magnesium 250 mg tablet 250 mg PO DAILY 03/17/22 08/25/23 08/25/23 History vitamin B complex 1 tab PO DAILY 03/17/22 08/25/23 08/25/23 History warfarin 2 mg tablet (Jantoven) 2 - 4 mg PO DAILY@1800 03/17/22 08/25/23 08/25/23 History torsemide 20 mg tablet 2 tab PO DAILY 07/28/22 08/25/23 08/25/23 History albuterol sulfate 90 mcg/actuation 2 puff inhalation Q4H PRN wheezing 10/16/22 08/25/23 02/21/23 08:00 History aerosol inhaler (Ventolin HFA) dexlansoprazole 30 mg 30 mg PO DAILY@1900 05/29/23 08/25/23 08/24/23 History capsule,biphase delayed release gabapentin 300 mg capsule 300 mg PO BID 05/29/23 08/25/23 08/25/23 History Lactobacillus acidophilus 1 cap PO BID 08/25/23 08/25/23 08/25/23 History (Acidophilus capsule) dextran 70-hypromellose (PF) 0.1 1 drp ophthalmic (eye) Q4H PRN Dry 08/25/23 08/25/23 Unknown History %-0.3 % eye drops in a dropperette Eye(S) (Artificial Tears (PF)) ferrous sulfate 325 mg (65 mg 325 mg PO BEDTIME 08/25/23 08/25/23 08/24/23 History iron) tablet (Feosol) fluticasone furoate 100 1 ea inhalation DAILY PRN Wheezing 08/25/23 08/25/23 Unknown History mcg-vilanterol 25 mcg/dose inhalation powder (Breo Ellipta) polyethylene glycol 3350 17 gram 17 g PO BID PRN Constipation 08/25/23 08/25/23 Unknown History oral powder packet simvastatin 40 mg tablet (Zocor) 40 mg PO BEDTIME 08/25/23 08/25/23 08/24/23 History Physical Exam Vital Signs: Vital Signs: Last Vital Signs Temp 97.7 F 08/26/23 02:42 Pulse 50 08/26/23 06:25 Resp 16 08/26/23 06:25 BP 177/83 H 08/26/23 06:25 Pulse Ox 95 08/26/23 06:25 O2 Del Method Room Air 08/26/23 06:25 BMI result Body Mass Index 40.4 Results Labs 08/26/23 04:45 08/26/23 04:45 Labs: Short CBC 08/25/23 08/25/23 08/26/23 Range/Units 14:10 20:02 01:37 WBC 6.0 5.6 (4.8-10.8) X10*3/uL Hgb 10.2 L 10.6 L 10.1 L (12.0-16.0) g/dl Hct 32.1 L 36.1 L 31.0 L (37.0-47.0) % Plt Count 231 169 D (160-400) X10*3/uL 08/26/23 Range/Units 04:45 WBC 6.0 (4.8-10.8) X10*3/uL Hgb 10.1 L (12.0-16.0) g/dl Hct 31.6 L (37.0-47.0) % Plt Count 229 D (160-400) X10*3/uL BMP 08/25/23 08/26/23 14:10 04:45 Sodium 134 L 137 Potassium 5.2 H 4.1 D Chloride 102 101 Carbon Dioxide 28 28 BUN 9 9 Creatinine 0.91 0.95 Calcium 8.9 8.8 Cardiac Enzymes 08/26/23 Range/Units 04:45 Total Creatine Kinase 33 (26-140) U/L Liver Function 08/25/23 08/26/23 Range/Units 14:10 04:45 Total Bilirubin 0.2 0.3 (0.0-1.0) mg/dL Direct Bilirubin < 0.2 (0.0-0.5) mg/dL AST 15 14 (5-31) U/L ALT 10 9 (0-31) U/L Alkaline Phosphatase 79 71 (39-117) U/L Albumin 3.6 3.4 L (3.5-5.0) g/dL Urine 08/25/23 Range/Units 15:27 Urine Color Dark Yellow Urine Appearance Turbid Urine pH 7.0 (5.0-9.0) Ur Specific [place] 1.010 (1.005-1.025) Urine Protein Negative (Neg-Trace) mg/dL Urine Glucose (UA) Negative (Negative) mg/dL Microbiology Microbiology Results: Microbiology 08/25/23 18:02 Urine clean catch - Urine hodges top Urine Culture - Preliminary Gram negative lucila Procedures Date of Service Date of Service: 08/26/23
[2023-08-26] MEDS: Pantoprazole Sodium 40 MG/10 ML VIAL IVPUSH ×2 (09:28→22:10)
[2023-08-26] MEDS: Magnesium Oxide 400 MG TABLET 200 MG PO (10:25)
[2023-08-26] MEDS: Losartan Potassium 25 MG TABLET PO (10:25)
[2023-08-26] MEDS: Torsemide 20 MG TABLET 40 MG PO (10:26)
[2023-08-26] MEDS: Multivitamin TABLET 1 TAB PO (10:26)
[2023-08-26] MEDS: Escitalopram Oxalate 5 MG TABLET PO (10:26)
[2023-08-26] MEDS: Escitalopram Oxalate 20 MG TABLET PO (10:26)
[2023-08-26] MEDS: Acetaminophen 325 MG TABLET 975 MG PO (11:55)
[2023-08-26] MEDS: Tolterodine Tartrate LA 4 MG CAP.ER.24H PO (11:55)
--- NOTE | 2023-08-26 15:18 | P.PNIM_ITS ---
Subjective Subjective Date of Service: 08/26/23 Interval History: uti ,anemia Review of Systems Patient has dysuria Denies any chest pain or shortness of breath Physical Exam 2 Vital Signs: Vital Signs: Last Vital Signs Temp 97.7 F 08/26/23 02:42 Pulse 50 08/26/23 06:25 Resp 16 08/26/23 06:25 BP 177/83 H 08/26/23 06:25 Pulse Ox 95 08/26/23 06:25 O2 Del Method Room Air 08/26/23 06:25 BMI result Body Mass Index 40.4 Appearance: Alert.? Oriented X3.? cvs: rrr, [id number] , no murmur res: clear to auscultation ,no rhonchii or wheezing abd: no rebound or guarding ,nt, bs present. ext pulses present , no cyanosis. neuro: axo3 , nonfocal. Objective Data Active Medications Acetaminophen (Acetaminophen 325 Mg Tablet) 975 mg PO Q6H PRN PRN Reason: Pain, Mild (Pain Scale 1-3) Last Admin: 08/26/23 11:55 Dose: 975 mg Documented By: JUSTIN Albuterol Sulfate (Albuterol Sulfate (0.083%) 2.5 Mg/3 Ml Vial.Neb) 2.5 mg INHALE Q4H PRN PRN Reason: wheezing Artificial Tears (Artificial Tears 15 Ml Drops) 1 drop EYE-BOTH Q4H PRN PRN Reason: Dry Eye(S) Atorvastatin Calcium (Atorvastatin Calcium 20 Mg Tablet) 20 mg PO BEDTIME [facility] Last Admin: 08/25/23 21:42 Dose: 20 mg Documented By: RAHAT Doxepin HCl (Doxepin Hcl 25 Mg Capsule) 25 mg PO BEDTIME [facility] Last Admin: 08/25/23 21:42 Dose: 25 mg Documented By: RAHAT Escitalopram Oxalate (Escitalopram Oxalate 5 Mg Tablet) 5 mg PO DAILY [facility] Last Admin: 08/26/23 10:26 Dose: 5 mg Documented By: JUSTIN Escitalopram Oxalate (Escitalopram Oxalate 20 Mg Tablet) 20 mg PO DAILY [facility] Last Admin: 08/26/23 10:26 Dose: 20 mg Documented By: JUSTIN Fluticasone/Vilanterol (Fluticasone/Vilanterol 100/25 Blst.W.Dev) 1 puff INHALE RDAILY PRN PRN Reason: Wheezing Piperacillin Sod/Tazobactam (Sod 3.375 gm/ Sodium Chloride) 50 mls @ 100 mls/hr IV Q6H [facility] Last Infusion: 08/26/23 10:20 Dose: Infused Documented By: JUSTIN Lorazepam (Lorazepam 1 Mg Tablet) 1 mg PO BEDTIME PRN PRN Reason: anxiety Losartan Potassium (Losartan Potassium 25 Mg Tablet) 25 mg PO DAILY [facility]; Protocol Last Admin: 08/26/23 10:25 Dose: 25 mg Documented By: JUSTIN Magnesium Oxide (Magnesium Oxide 400 Mg Tablet) 200 mg PO DAILY [facility] Last Admin: 08/26/23 10:25 Dose: 200 mg Documented By: JUSTIN Metoprolol Tartrate (Metoprolol Tartrate 100 Mg Tablet) 100 mg PO BID [facility]; Protocol Last Admin: 08/26/23 10:26 Dose: Not Given Documented By: JUSTIN Non-Admin Reason: Decreased Heart Rate Multivitamins/Vitamin C (Multivitamin Tablet) 1 tab PO DAILY [facility] Last Admin: 08/26/23 10:26 Dose: 1 tab Documented By: JUSTIN Pantoprazole Sodium (Pantoprazole Sodium 40 Mg/10 Ml Vial) 40 mg IVPUSH Q12H [facility] Last Admin: 08/26/23 09:28 Dose: 40 mg Documented By: JUSTIN Sodium Chloride (0.9 % Sodium Chloride Flush 3 Ml Syringe) 3 ml IVFLUSH QSHIFT [facility] Last Admin: 08/26/23 06:59 Dose: Not Given Documented By: JUSTIN Non-Admin Reason: Med Not Available Tolterodine Tartrate (Tolterodine Tartrate La 4 Mg Cap.Er.24h) 4 mg PO DAILY [facility] Last Admin: 08/26/23 11:55 Dose: 4 mg Documented By: JUSTIN Torsemide (Torsemide 20 Mg Tablet) 40 mg PO DAILY [facility]; Protocol Last Admin: 08/26/23 10:26 Dose: 40 mg Documented By: JUSTIN Labs 08/26/23 04:45 08/26/23 04:45 Labs: Laboratory Results - last 24 hr 08/25/23 08/25/23 08/25/23 15:27 17:18 19:46 MCV MCH MCHC RDW Plt Count MPV Immature Gran % (Auto) Neut % (Auto) Lymph % (Auto) [place] % (Auto) Eos % (Auto) Baso % (Auto) Lymph # (Auto) [place] # (Auto) Eos # (Auto) Baso # (Auto) Abs Immat Gran (auto) Absolute Neuts (auto) Absolute Nucleated RBC Nucleated RBC % (auto) Hold Purple Top Anion Gap Estim Creat Clear Calc Estimated GFR Random Glucose Lactic Acid 0.6 Calcium Total Bilirubin AST ALT Alkaline Phosphatase Total Creatine Kinase C-Reactive Protein Total Protein Albumin Urine Color Dark Yellow Urine Appearance Turbid Urine pH 7.0 Ur Specific [place] 1.010 Urine Protein Negative Urine Glucose (UA) Negative Urine Ketones Negative Urine Blood Small (1+) H Urine Nitrite Positive H Ur Leukocyte Esterase Large (3+) H Urine RBC 0-2 Urine WBC >50 H Ur Squamous Epith Cells 0-2 Urine Bacteria 4+ Hyaline Casts 0-2 Stool Occult Blood POSITIVE Urine Opiates Screen Not Detected Urine Fentanyl Screen Not Detected Ur Barbiturates Screen Not Detected Ur Phencyclidine Scrn Not Detected Ur Amphetamines Screen Not Detected U Benzodiazepines Scrn Not Detected Urine Cocaine Screen Not Detected U Marijuana (THC) Screen Not Detected Blood Type Antibody Screen 08/25/23 08/25/23 08/26/23 20:02 20:30 04:45 MCV 95.5 D 87.3 D MCH 28.0 27.9 MCHC 29.4 L 32.0 RDW 13.0 12.8 Plt Count 169 D 229 D MPV 10.5 9.9 Immature Gran % (Auto) 0.4 0.5 H Neut % (Auto) 67.7 68.6 Lymph % (Auto) 21.5 19.0 L [place] % (Auto) 7.9 7.7 Eos % (Auto) 2.0 3.2 Baso % (Auto) 0.5 1.0 Lymph # (Auto) 1.2 1.1 L [place] # (Auto) 0.4 0.5 Eos # (Auto) 0.1 0.2 Baso # (Auto) 0.0 0.1 Abs Immat Gran (auto) 0.02 0.03 Absolute Neuts (auto) 3.8 4.1 Absolute Nucleated RBC 0.000 0.000 Nucleated RBC % (auto) 0.0 0.0 Hold Purple Top SEE NOTE Anion Gap 12 Estim Creat Clear Calc 51.0 Estimated GFR 58 Random Glucose 81 Lactic Acid Calcium 8.8 Total Bilirubin 0.3 AST 14 ALT 9 Alkaline Phosphatase 71 Total Creatine Kinase 33 C-Reactive Protein 1.02 H Total Protein 5.9 L Albumin 3.4 L Urine Color Urine Appearance Urine pH Ur Specific [place] Urine Protein Urine Glucose (UA) Urine Ketones Urine Blood Urine Nitrite Ur Leukocyte Esterase Urine RBC Urine WBC Ur Squamous Epith Cells Urine Bacteria Hyaline Casts Stool Occult Blood Urine Opiates Screen Urine Fentanyl Screen Ur Barbiturates Screen Ur Phencyclidine Scrn Ur Amphetamines Screen U Benzodiazepines Scrn Urine Cocaine Screen U Marijuana (THC) Screen Blood Type O Positive Antibody Screen NEGATIVE Microbiology Microbiology Results: Microbiology 08/25/23 18:02 Urine Culture - Preliminary Urine clean catch - Urine hodges top Gram negative lucila Assessment and Plan (1) Urinary tract infection: Status: Acute Assessment and Plan: 72 years old woman with past medical history significant for interstitial cystitis (recurrent UTIs), ulcerative colitis and s/p mitral + aortic valve replacement (both prosthetic and complicated with RV rupture s/p repair) admitted with: possible UTI: UA -has pyuria/bacteruria ,only 2 prbc continue antibiotic therapy with Zosyn , Urine culture -grma negative lucila, Urology consult. Anemia normocytic : Occult blood test positive. No overt bleeding. Continue to monitor H&H (so far stable) around 10.1. Continue Protonix 40 mg IV twice daily. Hold warfarin. d/w Gi- recomended for moniter h/h ,switch warfarin to lovenox until egd - possible on 08/28/23. Iron deficiency anemia. F/U by Dr. Arriaga. H&H stable. Continue to monitor. Mild hyperkalemia likely secondary to PO KCl. resolved with Hold potassium pills. HFpEF. Patient complains of dyspnea on exertion. Normal O2 sat on room air. BNP is elevated and CXR showed ?pulmonary edema. Continue torsemide. Lower extremity edema, bilateral secondary to above. Continue torsemide. Paroxysmal atrial fibrillation. Continue metoprolol. Warfarin on hold due to anemia. Depression, anxiety + PTSD. Continue doxepin, Lexapro and Ativan. Asthma. Not in acute exacerbation. Normal oxygen saturation on room air. Albuterol as needed. Hyperlipidemia. Continue statin. Morbid obesity. BMI 40.4 kg/m2. Encouraged for Weight loss and cutdown calories. Urinary incontinence. Continue Tolterodine. DVT prophylaxis: SCDs Ongoing need hospitalization for 48-72 hrs : UTI, anemia workup- Patient will need empiric IV antibiotic therapy and frequent monitoring of vital signs and labs H&H and renal function and electrolyte monitoring, evaluation by subspecialty. Quality Stroke Does the patient have a stroke diagnosis?: No VTE Prior VTE?: No VTE Risk Level:: Medical - moderate - high VTE Device Contraindication: Treatment Not Indicated VTE Drug Contraindication: N/A - Med Ordered
--- NOTE | 2023-08-26 16:08 | PM.UROCN ---
History of Present Illness Consult details Consult date: 08/26/23 <Riddhi Love MD - Last Filed: 08/26/23 16:17> Narrative: Hematuria, followed by [facility] for recurrent UTI's, interstitial cystitis, was seen by [employer] SUPERVISOR in the office yesterday on 08/25/23, unable to provide urine specimen with bladder scan PVR 0 mL at time of visit, presented to ED, being treated with Lasix for fluid overload, urine c/s gram negative rods. <Riddhi Love MD - Last Filed: 08/26/23 16:17> [facility] Past Medical History Medical History: Medical History (Updated 08/28/23 @ 10:28 by Mehreen Rees, RN) History of stroke Abnormal colonoscopy (~04/03/22) Wheezing Anemia Urinary incontinence Right carpal tunnel syndrome Post cardiotomy syndrome PTSD (post-traumatic stress disorder) Osteoarthritis, hip, bilateral Interstitial cystitis Lipid disorder Insomnia Generalized anxiety disorder with panic attacks Major depression, recurrent History of ulcerative colitis Chronic GERD Diastolic congestive heart failure Paroxysmal atrial fibrillation Age related osteoporosis Asthma, moderate persistent Anticoagulant long-term use Iron deficiency anemia Establishing care with new doctor, encounter for Hypertension, essential <Riddhi Love MD - Last Filed: 08/26/23 16:17> Family History Family History: Family History Daughter Mental health disorder Substance use disorder Father Emphysema lung Mother Heart disease Stroke Pacemaker Arthritis Family/Other Colon cancer Sister Crohn's disease <Riddhi Love MD - Last Filed: 08/26/23 16:17> Surgical History Surgical History: Surgical History (Updated 08/28/23 @ 10:29 by Mehreen Rees, RN) Hx of tonsillectomy Hx of colonoscopy Hx of rotator cuff surgery History of arthroplasty of both knees Hx of hysterectomy Status post mitral valve replacement Status post aortic valve replacement History of kyphoplasty History of artificial heart valve <Riddhi Love MD - Last Filed: 08/26/23 16:17> Social History Social History: Social History Household Members: Children Household Members Other:: son Housing: Apartment Are you a primary caregivers homecare to a significant other at home: No Do you presently have visiting nurse or other home services: No Alcohol intake: never Patient Tobacco Use Status: Former Tobacco user Quit Date: 30 yrs ago e-Cigarette/Vaping Use: Never Used Substance Use Type: Marijuana Advance Directives Date on File: 03/17/22 service: No Current occupational status: retired Cognitive needs: No Hearing needs: No Vision needs: Yes <Riddhi Love MD - Last Filed: 08/26/23 16:17> Meds Allergies/Adverse reactions: Allergies Allergy/AdvReac Type Severity Reaction Status Date / Time adhesive [ADHESIVE] Allergy Unknown LOCAL Verified 08/25/23 20:32 REACTION melatonin Allergy PYSCHOSIS Verified 08/25/23 20:45 blue dye AdvReac Diarrhea Verified 08/25/23 20:46 <Riddhi Love MD - Last Filed: 08/26/23 16:17> Active Medications: Current Medications Acetaminophen (Acetaminophen 325 Mg Tablet) 975 mg PO Q6H PRN PRN Reason: Pain, Mild (Pain Scale 1-3) Last Admin: 08/26/23 11:55 Dose: 975 mg Albuterol Sulfate (Albuterol Sulfate (0.083%) 2.5 Mg/3 Ml Vial.Neb) 2.5 mg INHALE Q4H PRN PRN Reason: wheezing Artificial Tears (Artificial Tears 15 Ml Drops) 1 drop EYE-BOTH Q4H PRN PRN Reason: Dry Eye(S) Atorvastatin Calcium (Atorvastatin Calcium 20 Mg Tablet) 20 mg PO BEDTIME COUNT INCLUDES THE [facility] Last Admin: 08/25/23 21:42 Dose: 20 mg Doxepin HCl (Doxepin Hcl 25 Mg Capsule) 25 mg PO BEDTIME COUNT INCLUDES THE [facility] Last Admin: 08/25/23 21:42 Dose: 25 mg Enoxaparin Sodium (Enoxaparin Sodium 100 Mg/Ml Syringe) 90 mg SUBCUT Q12H COUNT INCLUDES THE [facility] Escitalopram Oxalate (Escitalopram Oxalate 5 Mg Tablet) 5 mg PO DAILY COUNT INCLUDES THE [facility] Last Admin: 08/26/23 10:26 Dose: 5 mg Escitalopram Oxalate (Escitalopram Oxalate 20 Mg Tablet) 20 mg PO DAILY COUNT INCLUDES THE [facility] Last Admin: 08/26/23 10:26 Dose: 20 mg Fluticasone/Vilanterol (Fluticasone/Vilanterol 100/25 Blst.W.Dev) 1 puff INHALE RDAILY PRN PRN Reason: Wheezing Piperacillin Sod/Tazobactam (Sod 3.375 gm/ Sodium Chloride) 50 mls @ 100 mls/hr IV Q6H JENNIFER Last Infusion: 08/26/23 10:20 Dose: Infused Lorazepam (Lorazepam 1 Mg Tablet) 1 mg PO BEDTIME PRN PRN Reason: anxiety Losartan Potassium (Losartan Potassium 25 Mg Tablet) 25 mg PO DAILY COUNT INCLUDES THE [facility]; Protocol Last Admin: 08/26/23 10:25 Dose: 25 mg Magnesium Oxide (Magnesium Oxide 400 Mg Tablet) 200 mg PO DAILY JENNIFER Last Admin: 08/26/23 10:25 Dose: 200 mg Metoprolol Tartrate (Metoprolol Tartrate 100 Mg Tablet) 100 mg PO BID COUNT INCLUDES THE [facility]; Protocol Last Admin: 08/26/23 10:26 Dose: Not Given Multivitamins/Vitamin C (Multivitamin Tablet) 1 tab PO DAILY COUNT INCLUDES THE [facility] Last Admin: 08/26/23 10:26 Dose: 1 tab Pantoprazole Sodium (Pantoprazole Sodium 40 Mg/10 Ml Vial) 40 mg IVPUSH Q12H JENNIFER Last Admin: 08/26/23 09:28 Dose: 40 mg Sodium Chloride (0.9 % Sodium Chloride Flush 3 Ml Syringe) 3 ml IVFLUSH QSHIFT COUNT INCLUDES THE [facility] Last Admin: 08/26/23 15:22 Dose: Not Given Tolterodine Tartrate (Tolterodine Tartrate La 4 Mg Cap.Er.24h) 4 mg PO DAILY COUNT INCLUDES THE [facility] Last Admin: 08/26/23 11:55 Dose: 4 mg Torsemide (Torsemide 20 Mg Tablet) 40 mg PO DAILY COUNT INCLUDES THE [facility]; Protocol Last Admin: 08/26/23 10:26 Dose: 40 mg <Riddhi Love MD - Last Filed: 08/26/23 16:17> Home medications: Home Medications ?Medication ?Instructions ?Recorded ?Confirmed ?Last Taken ?Type escitalopram oxalate 20 mg tablet 20 mg PO DAILY 10/30/21 08/25/23 08/25/23 History (Lexapro) losartan 25 mg tablet (Cozaar) 25 mg PO DAILY 10/30/21 08/25/23 08/25/23 History metoprolol tartrate 100 mg tablet 100 mg PO BID 10/30/21 08/25/23 08/25/23 History (Lopressor) potassium chloride 10 mEq 10 meq PO DAILY 10/30/21 08/25/23 08/25/23 History tablet,extended release (K-Tab) doxepin 25 mg capsule 1 cap PO BEDTIME 11/14/21 08/25/23 08/24/23 History lorazepam 1 mg tablet 1 mg PO DAILY@1800 Anxiety 11/14/21 08/25/23 08/24/23 History albuterol sulfate 2.5 mg/3 mL 1 vial inhalation Q4H PRN wheezing 03/17/22 08/25/23 02/21/23 08:00 History (0.083 %) solution for nebulization biotin 2,500 mcg capsule 2,500 mcg PO DAILY 03/17/22 08/25/23 08/25/23 History ergocalciferol (vitamin D2) 1,250 1,250 mcg PO WE 03/17/22 08/25/23 08/19/23 History mcg (50,000 unit) capsule escitalopram oxalate 5 mg tablet 1 tab PO DAILY 03/17/22 08/25/23 08/25/23 History magnesium 250 mg tablet 250 mg PO DAILY 03/17/22 08/25/23 08/25/23 History vitamin B complex 1 tab PO DAILY 03/17/22 08/25/23 08/25/23 History warfarin 2 mg tablet (Jantoven) 2 - 4 mg PO DAILY@1800 03/17/22 08/25/23 08/25/23 History torsemide 20 mg tablet 2 tab PO DAILY 07/28/22 08/25/23 08/25/23 History albuterol sulfate 90 mcg/actuation 2 puff inhalation Q4H PRN wheezing 10/16/22 08/25/23 02/21/23 08:00 History aerosol inhaler (Ventolin HFA) dexlansoprazole 30 mg 30 mg PO DAILY@1900 05/29/23 08/25/23 08/24/23 History capsule,biphase delayed release gabapentin 300 mg capsule 300 mg PO BID 05/29/23 08/25/23 08/25/23 History Lactobacillus acidophilus 1 cap PO BID 08/25/23 08/25/23 08/25/23 History (Acidophilus capsule) dextran 70-hypromellose (PF) 0.1 1 drp ophthalmic (eye) Q4H PRN Dry 08/25/23 08/25/23 Unknown History %-0.3 % eye drops in a dropperette Eye(S) (Artificial Tears (PF)) ferrous sulfate 325 mg (65 mg 325 mg PO BEDTIME 08/25/23 08/25/23 08/24/23 History iron) tablet (Feosol) fluticasone furoate 100 1 ea inhalation DAILY PRN Wheezing 08/25/23 08/25/23 Unknown History mcg-vilanterol 25 mcg/dose inhalation powder (Breo Ellipta) polyethylene glycol 3350 17 gram 17 g PO BID PRN Constipation 08/25/23 08/25/23 Unknown History oral powder packet simvastatin 40 mg tablet (Zocor) 40 mg PO BEDTIME 08/25/23 08/25/23 08/24/23 History <Riddhi Love MD - Last Filed: 08/26/23 16:17> Physical Exam Vital Signs: Vital Signs: Last Vital Signs Temp 97.7 F 08/26/23 02:42 Pulse 50 08/26/23 06:25 Resp 16 08/26/23 06:25 BP 177/83 H 08/26/23 06:25 Pulse Ox 95 08/26/23 06:25 O2 Del Method Room Air 08/26/23 06:25 BMI result Body Mass Index 40.4 <Riddhi Love MD - Last Filed: 08/26/23 16:17> Results Labs Result diagrams: 08/28/23 07:12 08/26/23 04:45 <Riddhi Love MD - Last Filed: 08/26/23 16:17> Labs: Abnormal lab results 08/25/23 08/25/23 08/26/23 Range/Units 15:27 20:02 01:37 RBC 3.78 L (4.20-5.50) X10*6/uL Hgb 10.6 L 10.1 L (12.0-16.0) g/dl Hct 36.1 L 31.0 L (37.0-47.0) % MCHC 29.4 L (31.0-35.0) g/dl Immature Gran % (Auto) (0.0-0.4) % Lymph % (Auto) (20-40) % Lymph # (Auto) (1.2-4.9) X10*3/uL C-Reactive Protein (< or = 0.50) mg/dL Total Protein (6.5-8.0) g/dL Albumin (3.5-5.0) g/dL Urine Blood Small (1+) H (Negative) Urine Nitrite Positive H (Negative) Ur Leukocyte Esterase Large (3+) H (Negative) Urine WBC >50 H (0-5) /HPF 08/26/23 Range/Units 04:45 RBC 3.62 L (4.20-5.50) X10*6/uL Hgb 10.1 L (12.0-16.0) g/dl Hct 31.6 L (37.0-47.0) % MCHC (31.0-35.0) g/dl Immature Gran % (Auto) 0.5 H (0.0-0.4) % Lymph % (Auto) 19.0 L (20-40) % Lymph # (Auto) 1.1 L (1.2-4.9) X10*3/uL C-Reactive Protein 1.02 H (< or = 0.50) mg/dL Total Protein 5.9 L (6.5-8.0) g/dL Albumin 3.4 L (3.5-5.0) g/dL Urine Blood (Negative) Urine Nitrite (Negative) Ur Leukocyte Esterase (Negative) Urine WBC (0-5) /HPF Short CBC 08/25/23 08/26/23 08/26/23 Range/Units 20:02 01:37 04:45 WBC 5.6 6.0 (4.8-10.8) X10*3/uL Hgb 10.6 L 10.1 L 10.1 L (12.0-16.0) g/dl Hct 36.1 L 31.0 L 31.6 L (37.0-47.0) % Plt Count 169 D 229 D (160-400) X10*3/uL BMP 08/26/23 04:45 Sodium 137 Potassium 4.1 D Chloride 101 Carbon Dioxide 28 BUN 9 Creatinine 0.95 Calcium 8.8 Cardiac Enzymes 08/26/23 Range/Units 04:45 Total Creatine Kinase 33 (26-140) U/L Liver Function 08/26/23 Range/Units 04:45 Total Bilirubin 0.3 (0.0-1.0) mg/dL AST 14 (5-31) U/L ALT 9 (0-31) U/L Alkaline Phosphatase 71 (39-117) U/L Albumin 3.4 L (3.5-5.0) g/dL Urine 08/25/23 Range/Units 15:27 Urine Color Dark Yellow Urine Appearance Turbid Urine pH 7.0 (5.0-9.0) Ur Specific [place] 1.010 (1.005-1.025) Urine Protein Negative (Neg-Trace) mg/dL Urine Glucose (UA) Negative (Negative) mg/dL All other labs normal. <Riddhi Love MD - Last Filed: 08/26/23 16:17> Imaging Additional studies: Date of Service: 08/25/23 EXAMINATION: XR CHEST CLINICAL INFORMATION: Shortness of breath COMPARISON: Previous chest x-ray February 2023 TECHNIQUE: Frontal view of the chest was obtained. FINDINGS: The cardiac silhouette is slightly enlarged but stable. Prosthetic heart valve and median sternotomy wires. Lung volumes are low. There is question of pulmonary venous redistribution The lungs are otherwise clear. No significant pleural effusion. No pneumothorax. Degenerative changes of the spine and right shoulder. The right shoulder. IMPRESSION: Stable enlargement of the cardiac silhouette and question pulmonary venous redistribution. Date of Service: 02/22/23 CT ABDOMEN AND PELVIS WITHOUT CONTRAST CLINICAL INFORMATION: Pain COMPARISON: 04/02/2022 DLP: 913 mGy-cm FINDINGS: LUNG BASES: Suboptimally assessed due to motion artifact. Subsegmental atelectasis versus scarring in the right lower lobe. Coronary artery calcifications are present. LIVER, GALLBLADDER, AND BILIARY TREE: The liver is normal in size, shape, and attenuation. There is a redemonstrated approximately 1 cm hypodensity in the inferior left lobe, favoring a cyst. No biliary ductal dilatation is present. There is suggestion of cholelithiasis. No gallbladder wall thickening or surrounding inflammation. PANCREAS: Unremarkable. SPLEEN: Unremarkable. ADRENAL GLANDS: Unremarkable. KIDNEYS AND URETERS: No hydronephrosis or obstructing calculus bilaterally. BLADDER: Distended without wall thickening. Tiny focus of gas is present anteriorly. GASTROINTESTINAL TRACT: Colonic diverticulosis is noted. The small and large bowel are otherwise unremarkable without evidence of obstruction or pericolonic inflammatory change. The appendix is unremarkable. No free fluid or free air is seen. ABDOMINAL WALL: No significant hernia is appreciated. LYMPH NODES: Unremarkable VASCULAR: Moderately extensive atherosclerotic calcification. PELVIC VISCERA: Patient is status post hysterectomy. OSSEOUS STRUCTURES: Vertebral body cement is present throughout the lumbar spine. Severe compression deformity of T11 and moderate compression deformity of T9 are similar to prior. L1 vertebral body height is maintained. Partial compression deformities of L2, L3, and L5 appear similar to prior. Mild loss of height in L4 is also similar to prior. There is diffuse facet arthropathy of the lumbar spine. No new acute fracture is seen. IMPRESSION: 1. No new acute findings identified in the abdomen/pelvis. 2. Tiny focus of gas in the urinary bladder, which could be due to recent catheterization or potentially cystitis in the proper clinical setting. 3. Suggestion of cholelithiasis. If there is clinical concern for cholecystitis, this would be better assessed with ultrasound. 4. No acute fracture identified. Redemonstrated chronic changes including compression deformities of the thoracolumbar spine as described above. <Riddhi Love MD - Last Filed: 08/26/23 16:17> Assessment and Plan (1) Urinary tract infection: Status: Acute <Riddhi Love MD - Last Filed: 08/26/23 16:17> (2) Interstitial cystitis: Status: Acute <Riddhi Love MD - Last Filed: 08/26/23 16:17> Urine c/s gram neg rods, final sensitivities pending, on IV pipercillin No surgical intervention indicated <Riddhi Love MD - Last Filed: 08/26/23 16:17> Procedures Date of Service Date of Service: 08/26/23 <Riddhi Love MD - Last Filed: 08/26/23 16:17> 08/28/23 <Deonte Astudillo MD - Last Filed: 08/28/23 10:40>
[2023-08-26] MEDS: Enoxaparin Sodium 100 MG/ML SYRINGE 90 MG SUBCUT (16:50)
[2023-08-26 17:09] VITALS: BP 167/69; PULSE 60; RESP 16; TEMP 36.6; O2SAT 100
--- NOTE | 2023-08-26 17:52 | PC.NURSE ---
pt reporting L calf pain and is concerned for blood clot. Dr. Ham notified and aware.
[2023-08-26] MEDS: LORazepam 1 MG TABLET PO (17:57)
[2023-08-26 19:32] VITALS: BP 174/60; PULSE 64; RESP 16; TEMP 36.7; O2SAT 99
--- NOTE | 2023-08-26 19:47 | MHC.EDTECH ---
PATIENT HAD A LARGE LOOSE BOWEL MOVEMENT ,CARE GIVEN .
[2023-08-26 20:00] VITALS: BP 185/78; PULSE 63; RESP 16; TEMP 36.3; O2SAT 97
--- NOTE | 2023-08-26 21:03 | PM.EVENT ---
Event Note Date of Service: 08/26/23 Event Note: GI consult dictated EGD planned for 08/27 after diuresis and decrease in INR. Hold anticoagulation Continue ppi Clear liquid diet today, advance in am folllow hct. Discussed with pt, nursing, and Dr Ham Time Spent With Patient Time: Total time managing care of this patient today ____ minutes.
--- NOTE | 2023-08-26 21:12 | MHC.SHP ---
Pre-Procedural Eval Section A - 24 Hr Update-Section A only Date of Service: 08/26/23 The patient is an INPATIENT: Yes Changes since office visit: No Cold of Flu in the past 2 weeks, No New Medical Problems, No Changes in Medication and No Patient answered all questions The patient has been examined within 24 hours of the surgical procedure. The History & Physical has been completed within 30 days and I have reviewed it.: Yes Section B - Complete if H&P > 30 days Chief Complaint: GI Bleed, UTI Allergies: Allergies Allergy/AdvReac Type Severity Reaction Status Date / Time adhesive [ADHESIVE] Allergy Unknown LOCAL Verified 08/25/23 20:32 REACTION melatonin Allergy PYSCHOSIS Verified 08/25/23 20:45 blue dye AdvReac Diarrhea Verified 08/25/23 20:46 Plan I have reviewed the history and physical and performed a pertinent physical examination on my patient. No changes have occurred unless specified. Time Spent With Patient Time: Total time managing care of this patient today ____ minutes.
[2023-08-26] MEDS: Metoprolol Tartrate 100 MG TABLET PO (22:11)
[2023-08-26] MEDS: Atorvastatin Calcium 20 MG TABLET PO (22:11)
[2023-08-26] MEDS: Doxepin HCl 25 MG CAPSULE PO (22:11)
[2023-08-27] VITALS (8 sets, daily range): BP systolic 148–185; BP diastolic 61–83; PULSE 54–64; RESP 16–20; TEMP 36.2–36.6; O2SAT 92–94
--- NOTE | 2023-08-27 01:13 | CONS_ITS ---
DATE OF SERVICE: 08/26/2023 REFERRING PHYSICIAN: Dary Tyler MD REASON FOR CONSULTATION: Anemia and black stool. HISTORY OF PRESENT ILLNESS: The patient is a pleasant 72-year-old woman, who was admitted to the hospital after presenting to the emergency room yesterday with complaints of generalized weakness and some shortness of breath. In the emergency department she was noted to be anemic and a digital rectal exam was performed which reportedly showed melena. The patient describes her last bowel movement yesterday as formed and dark brown. She has had some dark black diarrhea at home, but is on iron. She does take chronic proton pump inhibitor therapy for upper GI symptoms and last underwent upper endoscopy approximately 2 years ago in [place]. In the emergency department, evaluation showed a hematocrit of 32.2, which has remained stable since admission. There has been no reported rectal bleeding. Colonoscopy was last done for post polypectomy bleeding and showed no mass lesions. She had a cecal polyp site that was treated. She is on chronic warfarin for atrial fibrillation. PAST MEDICAL HISTORY: 1. Heart failure with preserved ejection fraction. 2. Hematuria. 3. Anemia, iron deficiency. 4. Colon polyps. 5. Elevated body mass index. 6. Paroxysmal atrial fibrillation. 7. Mitral and aortic valve replacements with bioprosthetic valves. 8. Gastroesophageal reflux disease. 9. History of ulcerative colitis, not active at time of last colonoscopy. 10. Depression/anxiety. CURRENT MEDICATIONS: Her current medication list is reviewed in the chart. ALLERGIES: MULTIPLE MEDICATIONS AND ENVIRONMENTAL ALLERGIES ARE REVIEWED. FAMILY HISTORY: This is reviewed with the patient and is noncontributory. SOCIAL HISTORY: There is no current tobacco, alcohol, or substance abuse. REVIEW OF SYSTEMS: SKIN: No pruritus. HEENT: Negative. CARDIOPULMONARY: She denies shortness of breath or chest pain currently. GASTROINTESTINAL: As above. GENITOURINARY: Negative. NEUROPSYCHIATRIC: Negative. PHYSICAL EXAMINATION: GENERAL: Shows a pleasant female, lying comfortably in bed. VITAL SIGNS: Reviewed in the electronic medical record and are stable. SKIN: Anicteric. HEENT: Shows no scleral icterus. NECK: Without lymphadenopathy or thyromegaly. LUNGS: Clear. HEART: Shows a regular rate and rhythm. S1, S2. No murmur. ABDOMEN: Soft without focal masses or tenderness. Bowel sounds are present. No organomegaly is noted. EXTREMITIES: Without edema. LABORATORY DATA AND IMAGING STUDIES: Reviewed. IMPRESSION: Anemia with history of black stools. She does not appear to be actively GI bleeding at this time and her hematocrit has been stable. I agree with treating her with a proton pump inhibitor. I would recommend upper endoscopy when her INR has improve. Her warfarin is being held. She can have clear liquids tonight and if her hematocrit is stable, solid food tomorrow and we will plan endoscopy on 08/26. She is aware risks and benefits and agrees to proceed. Thanks for asking me to see her. I will follow her in the hospital with you. MD DANG Levy/ROBERTO / [id number]
[2023-08-27] MEDS: Piperacillin Sodium/Tazobactam 3.375 GM in 0.9 % Sodium Chloride 50 ML IV ×3 (05:00→14:30)
[2023-08-27] MEDS: Enoxaparin Sodium 100 MG/ML SYRINGE 90 MG SUBCUT (06:25)
[2023-08-27 06:59] LABS: Hematocrit 32.7 % (37.0-47.0); Hemoglobin 10.7 g/dl (12.0-16.0)
[2023-08-27 07:19] LABS: INTERNATIONAL NORM RATIO 2.3 (0.9-1.1); Prothrombin Time 27.5 SEC (11.1-13.3)
[2023-08-27] MEDS: Escitalopram Oxalate 5 MG TABLET PO (08:48)
[2023-08-27] MEDS: Gabapentin 300 MG CAPSULE PO ×2 (08:48→21:00)
[2023-08-27] MEDS: Pantoprazole Sodium 40 MG/10 ML VIAL IVPUSH ×2 (08:48→20:51)
[2023-08-27] MEDS: Multivitamin TABLET 1 TAB PO (08:49)
[2023-08-27] MEDS: Magnesium Oxide 400 MG TABLET 200 MG PO (08:49)
[2023-08-27] MEDS: 0.9 % Sodium Chloride Flush 3 ML SYRINGE IVFLUSH ×3 (08:49→20:51)
[2023-08-27] MEDS: Losartan Potassium 25 MG TABLET PO (08:49)
[2023-08-27] MEDS: Tolterodine Tartrate LA 4 MG CAP.ER.24H PO (08:49)
[2023-08-27] MEDS: Escitalopram Oxalate 20 MG TABLET PO (08:49)
[2023-08-27] MEDS: Metoprolol Tartrate 100 MG TABLET PO ×2 (08:49→20:50)
[2023-08-27] MEDS: Torsemide 20 MG TABLET 40 MG PO (08:49)
[2023-08-27] MEDS: Phytonadione (Vit K1) 10 MG in 0.9 % Sodium Chloride 50 ML 51 MG IV (13:11)
--- NOTE | 2023-08-27 15:23 | P.PNIM_ITS ---
Subjective Subjective Date of Service: 08/27/23 Interval History: uti ,anemia Review of Systems Patient has dysuria Denies any chest pain or shortness of breath Physical Exam 2 Vital Signs: Vital Signs: Last Vital Signs Temp 97.5 F 08/27/23 11:02 Pulse 58 08/27/23 13:43 Resp 18 08/27/23 11:02 BP 148/62 H 08/27/23 11:02 Pulse Ox 93 08/27/23 13:43 O2 Del Method Nasal Cannula 08/27/23 11:02 O2 Flow Rate 2 08/27/23 11:02 BMI result Body Mass Index 40.4 Appearance: Alert.? Oriented X3.? cvs: rrr, [id number] , no murmur res: clear to auscultation ,no rhonchii or wheezing abd: no rebound or guarding ,nt, bs present. ext pulses present , no cyanosis. neuro: axo3 , nonfocal. Objective Data Active Medications Acetaminophen (Acetaminophen 325 Mg Tablet) 975 mg PO Q6H PRN PRN Reason: Pain, Mild (Pain Scale 1-3) Last Admin: 08/26/23 11:55 Dose: 975 mg Documented By: JUSTIN Albuterol Sulfate (Albuterol Sulfate (0.083%) 2.5 Mg/3 Ml Vial.Neb) 2.5 mg INHALE Q4H PRN PRN Reason: wheezing Artificial Tears (Artificial Tears 15 Ml Drops) 1 drop EYE-BOTH Q4H PRN PRN Reason: Dry Eye(S) Atorvastatin Calcium (Atorvastatin Calcium 20 Mg Tablet) 20 mg PO BEDTIME [facility] Last Admin: 08/26/23 22:11 Dose: 20 mg Documented By: JORDON Doxepin HCl (Doxepin Hcl 25 Mg Capsule) 25 mg PO BEDTIME [facility] Last Admin: 08/26/23 22:11 Dose: 25 mg Documented By: JORDON Enoxaparin Sodium (Enoxaparin Sodium 100 Mg/Ml Syringe) 90 mg SUBCUT Q12H [facility] Last Admin: 08/27/23 06:25 Dose: 90 mg Documented By: JORDON Escitalopram Oxalate (Escitalopram Oxalate 5 Mg Tablet) 5 mg PO DAILY [facility] Last Admin: 08/27/23 08:48 Dose: 5 mg Documented By: JODI Escitalopram Oxalate (Escitalopram Oxalate 20 Mg Tablet) 20 mg PO DAILY [facility] Last Admin: 08/27/23 08:49 Dose: 20 mg Documented By: JODI Fluticasone/Vilanterol (Fluticasone/Vilanterol 100/25 Blst.W.Dev) 1 puff INHALE RDAILY PRN PRN Reason: Wheezing Gabapentin (Gabapentin 300 Mg Capsule) 300 mg PO BID [facility] Last Admin: 08/27/23 08:48 Dose: 300 mg Documented By: JODI Piperacillin Sod/Tazobactam (Sod 3.375 gm/ Sodium Chloride) 50 mls @ 100 mls/hr IV Q6H [facility] Last Admin: 08/27/23 14:30 Dose: 100 mls/hr Documented By: JODI Lorazepam (Lorazepam 1 Mg Tablet) 1 mg PO BEDTIME PRN PRN Reason: anxiety Last Admin: 08/26/23 17:57 Dose: 1 mg Documented By: JUSTIN Losartan Potassium (Losartan Potassium 25 Mg Tablet) 25 mg PO DAILY [facility]; Protocol Last Admin: 08/27/23 08:49 Dose: 25 mg Documented By: JODI Magnesium Oxide (Magnesium Oxide 400 Mg Tablet) 200 mg PO DAILY [facility] Last Admin: 08/27/23 08:49 Dose: 200 mg Documented By: JODI Metoprolol Tartrate (Metoprolol Tartrate 100 Mg Tablet) 100 mg PO BID [facility]; Protocol Last Admin: 08/27/23 08:49 Dose: 100 mg Documented By: JODI Multivitamins/Vitamin C (Multivitamin Tablet) 1 tab PO DAILY [facility] Last Admin: 08/27/23 08:49 Dose: 1 tab Documented By: JODI Pantoprazole Sodium (Pantoprazole Sodium 40 Mg/10 Ml Vial) 40 mg IVPUSH Q12H [facility] Last Admin: 08/27/23 08:48 Dose: 40 mg Documented By: JODI Sodium Chloride (0.9 % Sodium Chloride Flush 3 Ml Syringe) 3 ml IVFLUSH QSHIFT [facility] Last Admin: 08/27/23 14:30 Dose: 3 ml Documented By: JODI Tolterodine Tartrate (Tolterodine Tartrate La 4 Mg Cap.Er.24h) 4 mg PO DAILY [facility] Last Admin: 08/27/23 08:49 Dose: 4 mg Documented By: JODI Torsemide (Torsemide 20 Mg Tablet) 40 mg PO DAILY [facility]; Protocol Last Admin: 08/27/23 08:49 Dose: 40 mg Documented By: JODI Labs 08/27/23 06:31 08/26/23 04:45 Labs: Laboratory Results - last 24 hr 08/27/23 06:31 PT 27.5 H D INR 2.3 H Hold Yellow Top See Note Microbiology Microbiology Results: Microbiology 08/25/23 18:02 Urine Culture - Preliminary Urine clean catch - Urine hodges top Escherichia coli 08/25/23 17:18 Blood Culture - Preliminary Blood - Venous No growth after 24 hours. 08/25/23 17:20 Blood Culture - Preliminary Blood - Venous No growth after 24 hours. 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 Urology consult eval-no acute intervention,continue iv antibiotics.wait for senstivities. Anemia normocytic : Occult blood test positive. No overt bleeding. Continue to monitor H&H (so far stable) around 10.1. Continue Protonix 40 mg IV twice daily. Hold warfarin. inr today 2.3 d/w Gi- recomended for moniter h/h ,switch warfarin to lovenox until egd - possible on 08/28/23. Iron deficiency anemia. F/U by Dr. Arriaga. H&H stable. Continue to monitor. Mild hyperkalemia likely secondary to PO KCl. resolved with Hold potassium pills. Ch.HFpEF. Patient complains of dyspnea on exertion. Normal O2 sat on room air. BNP is elevated and CXR showed ?pulmonary edema. Continue torsemide. Lower extremity edema, bilateral secondary to above. Continue torsemide. Paroxysmal atrial fibrillation. Continue metoprolol. Warfarin on hold due to anemia. Depression, anxiety + PTSD. Continue doxepin, Lexapro and Ativan. Asthma. Not in acute exacerbation. Normal oxygen saturation on room air. Albuterol as needed. Hyperlipidemia. Continue statin. Morbid obesity. BMI 40.4 kg/m2. Encouraged for Weight loss and cutdown calories. Urinary incontinence. Continue Tolterodine. DVT prophylaxis: SCDs Ongoing need hospitalization for 48-72 hrs : UTI, anemia workup- Patient will need empiric IV antibiotic therapy and frequent monitoring of vital signs and labs H&H and renal function and electrolyte monitoring, evaluation by subspecialty. Quality Stroke Does the patient have a stroke diagnosis?: No VTE Prior VTE?: No VTE Risk Level:: Medical - moderate - high VTE Device Contraindication: Treatment Not Indicated VTE Drug Contraindication: N/A - Med Ordered
--- NOTE | 2023-08-27 15:47 | P.CDIM_ITS ---
PROVIDER RESPONSE TEXT: To clarify, the appropriate diagnosis supported by the clinical indicators: HFpEF: ch QUERY TEXT: PHYSICIAN'S DOCUMENTATION REQUEST Date of Query: 08/27/2023 09:47 AM EDT Patient Name: Yaneth Rodriguez Admit Date: 08/26/2023 Dear Luigi Ham, A review of the medical record indicates additional documentation may be needed. Please review below and update the documentation accordingly. Clinical Indicators: PMH: HFpEF, patient complains of CHANDRA, BNP elevated 1214 H CXR showed ? pulmonary edema. Continue Torsemide Please provide further specificity regarding the most likely acuity of CHF you are evaluating, treati ng, or monitoring. HFpEF Please specify if Acute, Chronic, or Acute on chronic, or Unable to determine Other (explain) Clinically unable to determine (explain) Thank you, Corrine Lerma, CCS, CDIS Use of terms such as suspected, likely, concern for, or probable (associated with a specific diagnosi s that is being evaluated, monitored, or treated as if it exists) are acceptable and can be coded in the inpatient se tting, when documented at the time of discharge. Please use your independent medical judgment in providing your response. THIS QUERY IS PART OF THE PERMANENT MEDICAL RECORD
[2023-08-27] MEDS: LORazepam 1 MG TABLET PO ×2 (18:07→23:49)
--- NOTE | 2023-08-27 18:22 | P.PNGI_ITS ---
Subjective Subjective Date of Service: 08/27/23 Interval History: no reported bleeding Critical Care Time (minutes): 0 Physical Exam 2 Vital Signs: Vital Signs: Last Vital Signs Temp 97.8 F 08/27/23 15:23 Pulse 60 08/27/23 15:23 Resp 18 08/27/23 15:23 BP 165/71 H 08/27/23 15:23 Pulse Ox 94 08/27/23 15:23 O2 Del Method Room Air 08/27/23 15:23 O2 Flow Rate 2 08/27/23 11:02 BMI result Body Mass Index 40.4 GI: Other: abdomen is soft and nontender Objective Data Labs 08/27/23 06:31 08/26/23 04:45 Labs: Laboratory Results - last 24 hr 08/27/23 06:31 Hgb 10.7 L Hct 32.7 L PT 27.5 H D INR 2.3 H Hold Yellow Top See Note Microbiology Microbiology Results: Microbiology 08/25/23 18:02 Urine clean catch - Urine hodges top Urine Culture - Preliminary Escherichia coli 08/25/23 17:18 Blood - Venous Blood Culture - Preliminary No growth after 24 hours. 08/25/23 17:20 Blood - Venous Blood Culture - Preliminary No growth after 24 hours. Procedures Date of Service Date of Service: 08/27/23 Progress Note: A&P Assessment and plan (1) Anemia: Status: Acute Assessment and Plan: anemia and black stools lovenox on hold and vitamin k to allow egd to be done safely 4/5 for further evaluation, and to allow restarting warfarin. discussed with patient and nursing Time Spent With Patient Time: Total time managing care of this patient today ____ minutes. Quality Stroke Does the patient have a stroke diagnosis?: No VTE Prior VTE?: No VTE Risk Level:: Medical - moderate - high VTE Device Contraindication: Treatment Not Indicated VTE Drug Contraindication: N/A - Med Ordered
[2023-08-27] MEDS: Atorvastatin Calcium 20 MG TABLET PO (20:50)
[2023-08-27] MEDS: Doxepin HCl 25 MG CAPSULE PO (20:50)
[2023-08-28] VITALS (11 sets, daily range): BP systolic 115–177; BP diastolic 48–79; PULSE 51–63; RESP 12–20; TEMP 36.1–36.9; O2SAT 92–100
[2023-08-28] MEDS: Dextrose 5 % and 0.9 % NaCl 1,000 ML 50 ML IVCONT (00:24)
[2023-08-28 07:49] LABS: Hematocrit 32.9 % (37.0-47.0); Hemoglobin 10.4 g/dl (12.0-16.0); Mean Corpuscular HGB Conc 31.6 g/dl (31.0-35.0); Mean Corpuscular Hemoglobin 27.2 pg (27.0-33.0); Mean Corpuscular Volume 86.1 fL (80.0-98.0); Mean Platelet Volume 9.4 fL (9.4-12.3); Platelet Count 222 X10*3/uL (160-400); Red Blood Count 3.82 X10*6/uL (4.20-5.50); Red Cell Distribution Width 12.8 % (11.0-16.0); White Blood Count 6.7 X10*3/uL (4.8-10.8)
[2023-08-28 07:53] LABS: INTERNATIONAL NORM RATIO 1.2 (0.9-1.1); Prothrombin Time 14.1 SEC (11.1-13.3)
[2023-08-28] MEDS: 0.9 % Sodium Chloride Flush 3 ML SYRINGE IVFLUSH ×3 (08:28→23:54)
[2023-08-28] MEDS: Pantoprazole Sodium 40 MG/10 ML VIAL IVPUSH ×2 (08:28→22:04)
[2023-08-28] MEDS: Escitalopram Oxalate 5 MG TABLET PO (08:29)
[2023-08-28] MEDS: Tolterodine Tartrate LA 4 MG CAP.ER.24H PO (08:29)
[2023-08-28] MEDS: Magnesium Oxide 400 MG TABLET 200 MG PO (08:29)
[2023-08-28] MEDS: Gabapentin 300 MG CAPSULE PO ×2 (08:29→22:03)
[2023-08-28] MEDS: Metoprolol Tartrate 100 MG TABLET PO ×2 (08:29→22:04)
[2023-08-28] MEDS: Escitalopram Oxalate 20 MG TABLET PO (08:29)
[2023-08-28] MEDS: Multivitamin TABLET 1 TAB PO (08:29)
--- NOTE | 2023-08-28 10:51 | HO.ANESPROP2 ---
PENDING SALE TO [facility] Active Problems Active Problems: All Active Problems Tremor (Acute) Incontinence (Acute) Urinary tract infection (Acute) Frequency of urination (Acute) Gross hematuria (Acute) Hyponatremia (Acute) Acute heart failure with preserved ejection fraction (HFpEF) (Acute) Chronic anticoagulation (Acute) Accident due to mechanical fall without injury (Acute) Recurrent urinary tract infection (Acute) Anemia (Acute) Recurrent UTI (Acute) Ulcerative colitis (Acute) Urine incontinence (Acute) Rectal bleeding (Acute) History of mitral valve replacement (Acute) Aortic valve replaced (Acute) Morbid obesity due to excess calories (Acute) Paroxysmal atrial fibrillation (Acute) Cardiomyopathy (Acute) Nephropathy (Acute) Chronic hyponatremia (Acute) Hospital discharge follow-up (Acute) Positive occult stool blood test (Acute) Hyperkalemia (Acute) GI bleed (Acute) Hypoxia (Acute) Chronic anticoagulation (Acute) CHF exacerbation (Acute) Interstitial cystitis (Acute) Past Medical History Medical History (Updated 08/28/23 @ 10:28 by Mehreen Rees, RN) History of stroke Abnormal colonoscopy (~04/03/22) Wheezing Anemia Urinary incontinence Right carpal tunnel syndrome Post cardiotomy syndrome PTSD (post-traumatic stress disorder) Osteoarthritis, hip, bilateral Interstitial cystitis Lipid disorder Insomnia Generalized anxiety disorder with panic attacks Major depression, recurrent History of ulcerative colitis Chronic GERD Diastolic congestive heart failure Paroxysmal atrial fibrillation Age related osteoporosis Asthma, moderate persistent Anticoagulant long-term use Iron deficiency anemia Establishing care with new doctor, encounter for Hypertension, essential Family History Family History Daughter Mental health disorder Substance use disorder Father Emphysema lung Mother Heart disease Stroke Pacemaker Arthritis Family/Other Colon cancer Sister Crohn's disease Family history of problems with anesthesia: No Surgical History Surgical History (Updated 08/28/23 @ 10:29 by Mehreen Rees, RN) Hx of tonsillectomy Hx of colonoscopy Hx of rotator cuff surgery History of arthroplasty of both knees Hx of hysterectomy Status post mitral valve replacement Status post aortic valve replacement History of kyphoplasty History of artificial heart valve History of Problems with Anesthesia: No Social History Social History Household Members: Children Household Members Other:: son Housing: Apartment Are you a primary health care facility administrator to a significant other at home: No Do you presently have visiting nurse or other home services: No Alcohol intake: never Patient Tobacco Use Status: Former Tobacco user Quit Date: 30 yrs ago e-Cigarette/Vaping Use: Never Used Substance Use Type: Marijuana Advance Directives Date on File: 03/17/22 service: No Current occupational status: retired Cognitive needs: No Hearing needs: No Vision needs: Yes Meds Allergies Allergy/AdvReac Type Severity Reaction Status Date / Time adhesive [ADHESIVE] Allergy Unknown LOCAL Verified 08/25/23 20:32 REACTION melatonin Allergy PYSCHOSIS Verified 08/25/23 20:45 blue dye AdvReac Diarrhea Verified 08/25/23 20:46 Active Medications: Current Medications Acetaminophen (Acetaminophen 325 Mg Tablet) 975 mg PO Q6H PRN PRN Reason: Pain, Mild (Pain Scale 1-3) Last Admin: 08/26/23 11:55 Dose: 975 mg Albuterol Sulfate (Albuterol Sulfate (0.083%) 2.5 Mg/3 Ml Vial.Neb) 2.5 mg INHALE Q4H PRN PRN Reason: wheezing Artificial Tears (Artificial Tears 15 Ml Drops) 1 drop EYE-BOTH Q4H PRN PRN Reason: Dry Eye(S) Atorvastatin Calcium (Atorvastatin Calcium 20 Mg Tablet) 20 mg PO BEDTIME [facility] Last Admin: 08/27/23 20:50 Dose: 20 mg Doxepin HCl (Doxepin Hcl 25 Mg Capsule) 25 mg PO BEDTIME [facility] Last Admin: 08/27/23 20:50 Dose: 25 mg Enoxaparin Sodium (Enoxaparin Sodium 100 Mg/Ml Syringe) 90 mg SUBCUT Q12H [facility] Last Admin: 08/27/23 06:25 Dose: 90 mg Escitalopram Oxalate (Escitalopram Oxalate 5 Mg Tablet) 5 mg PO DAILY [facility] Last Admin: 08/28/23 08:29 Dose: 5 mg Escitalopram Oxalate (Escitalopram Oxalate 20 Mg Tablet) 20 mg PO DAILY [facility] Last Admin: 08/28/23 08:29 Dose: 20 mg Fluticasone/Vilanterol (Fluticasone/Vilanterol 100/25 Blst.W.Dev) 1 puff INHALE RDAILY PRN PRN Reason: Wheezing Gabapentin (Gabapentin 300 Mg Capsule) 300 mg PO BID [facility] Last Admin: 08/28/23 08:29 Dose: 300 mg Meropenem 1 gm/ Sodium (Chloride) 100 mls @ 200 mls/hr IV Q8H [facility] Last Infusion: 08/28/23 08:58 Dose: Infused Dextrose/Sodium Chloride (D5ns) 1,000 mls @ 50 mls/hr IVCONT .Q20H [facility] Last Admin: 08/28/23 00:24 Dose: 50 mls/hr Lorazepam (Lorazepam 1 Mg Tablet) 1 mg PO BEDTIME PRN PRN Reason: anxiety Last Admin: 08/27/23 18:07 Dose: 1 mg Magnesium Oxide (Magnesium Oxide 400 Mg Tablet) 200 mg PO DAILY [facility] Last Admin: 08/28/23 08:29 Dose: 200 mg Metoprolol Tartrate (Metoprolol Tartrate 100 Mg Tablet) 100 mg PO BID [facility]; Protocol Last Admin: 08/28/23 08:29 Dose: 100 mg Multivitamins/Vitamin C (Multivitamin Tablet) 1 tab PO DAILY [facility] Last Admin: 08/28/23 08:29 Dose: 1 tab Pantoprazole Sodium (Pantoprazole Sodium 40 Mg/10 Ml Vial) 40 mg IVPUSH Q12H [facility] Last Admin: 08/28/23 08:28 Dose: 40 mg Sodium Chloride (0.9 % Sodium Chloride Flush 3 Ml Syringe) 3 ml IVFLUSH QSHIFT [facility] Last Admin: 08/28/23 08:28 Dose: 3 ml Tolterodine Tartrate (Tolterodine Tartrate La 4 Mg Cap.Er.24h) 4 mg PO DAILY [facility] Last Admin: 08/28/23 08:29 Dose: 4 mg Home Medications ?Medication ?Instructions ?Recorded ?Confirmed ?Last Taken ?Type escitalopram oxalate 20 mg tablet 20 mg PO DAILY 10/30/21 08/25/23 08/25/23 History (Lexapro) losartan 25 mg tablet (Cozaar) 25 mg PO DAILY 10/30/21 08/25/23 08/25/23 History metoprolol tartrate 100 mg tablet 100 mg PO BID 10/30/21 08/25/23 08/25/23 History (Lopressor) potassium chloride 10 mEq 10 meq PO DAILY 10/30/21 08/25/23 08/25/23 History tablet,extended release (K-Tab) doxepin 25 mg capsule 1 cap PO BEDTIME 11/14/21 08/25/23 08/24/23 History lorazepam 1 mg tablet 1 mg PO DAILY@1800 Anxiety 11/14/21 08/25/23 08/24/23 History albuterol sulfate 2.5 mg/3 mL 1 vial inhalation Q4H PRN wheezing 03/17/22 08/25/23 02/21/23 08:00 History (0.083 %) solution for nebulization biotin 2,500 mcg capsule 2,500 mcg PO DAILY 03/17/22 08/25/23 08/25/23 History ergocalciferol (vitamin D2) 1,250 1,250 mcg PO WE 03/17/22 08/25/23 08/19/23 History mcg (50,000 unit) capsule escitalopram oxalate 5 mg tablet 1 tab PO DAILY 03/17/22 08/25/23 08/25/23 History magnesium 250 mg tablet 250 mg PO DAILY 03/17/22 08/25/23 08/25/23 History vitamin B complex 1 tab PO DAILY 03/17/22 08/25/23 08/25/23 History warfarin 2 mg tablet (Jantoven) 2 - 4 mg PO DAILY@1800 03/17/22 08/25/23 08/25/23 History torsemide 20 mg tablet 2 tab PO DAILY 07/28/22 08/25/23 08/25/23 History albuterol sulfate 90 mcg/actuation 2 puff inhalation Q4H PRN wheezing 10/16/22 08/25/23 02/21/23 08:00 History aerosol inhaler (Ventolin HFA) dexlansoprazole 30 mg 30 mg PO DAILY@1900 05/29/23 08/25/23 08/24/23 History capsule,biphase delayed release gabapentin 300 mg capsule 300 mg PO BID 05/29/23 08/25/23 08/25/23 History Lactobacillus acidophilus 1 cap PO BID 08/25/23 08/25/23 08/25/23 History (Acidophilus capsule) dextran 70-hypromellose (PF) 0.1 1 drp ophthalmic (eye) Q4H PRN Dry 08/25/23 08/25/23 Unknown History %-0.3 % eye drops in a dropperette Eye(S) (Artificial Tears (PF)) ferrous sulfate 325 mg (65 mg 325 mg PO BEDTIME 08/25/23 08/25/23 08/24/23 History iron) tablet (Feosol) fluticasone furoate 100 1 ea inhalation DAILY PRN Wheezing 08/25/23 08/25/23 Unknown History mcg-vilanterol 25 mcg/dose inhalation powder (Breo Ellipta) polyethylene glycol 3350 17 gram 17 g PO BID PRN Constipation 08/25/23 08/25/23 Unknown History oral powder packet simvastatin 40 mg tablet (Zocor) 40 mg PO BEDTIME 08/25/23 08/25/23 08/24/23 History Exam Height,Weight and Vital Signs: Height 4 ft 11 in Weight 90.718 kg Last Vital Signs Temp 97.4 F 08/28/23 10:30 Pulse 53 08/28/23 10:30 Resp 17 08/28/23 10:30 BP 146/62 H 08/28/23 10:30 Pulse Ox 94 08/28/23 10:30 O2 Del Method Room Air 08/28/23 10:30 O2 Flow Rate 2 08/28/23 07:52 Pertinent Lab Results Pertinent Lab Results: Laboratory Tests 08/25/23 08/25/23 08/25/23 14:10 15:27 17:18 WBC 6.0 RBC 3.65 L Hgb 10.2 L Hct 32.1 L MCV 87.9 MCH 27.9 MCHC 31.8 RDW 12.9 Plt Count 231 MPV 9.7 Immature Gran % (Auto) 0.5 H Neut % (Auto) 71.6 Lymph % (Auto) 17.1 L [place] % (Auto) 8.5 Eos % (Auto) 1.8 Baso % (Auto) 0.5 Lymph # (Auto) 1.0 L [place] # (Auto) 0.5 Eos # (Auto) 0.1 Baso # (Auto) 0.0 Abs Immat Gran (auto) 0.03 Absolute Neuts (auto) 4.3 Absolute Nucleated RBC 0.000 Nucleated RBC % (auto) 0.0 Hold Purple Top PT 22.8 H D INR 1.9 H APTT 41.6 H Sodium 134 L Potassium 5.2 H Chloride 102 Carbon Dioxide 28 Anion Gap 9 L BUN 9 Creatinine 0.91 Estim Creat Clear Calc 53.2 Estimated GFR > 60 Random Glucose 91 Lactic Acid 0.6 Calcium 8.9 Magnesium 2.1 Total Bilirubin 0.2 Direct Bilirubin < 0.2 AST 15 ALT 10 Alkaline Phosphatase 79 Total Creatine Kinase Troponin I High Sens < 2.7 C-Reactive Protein B-Natriuretic Peptide 1214 H Total Protein 6.1 L Albumin 3.6 TSH 1.02 Hold Yellow Top Urine Color Dark Yellow Urine Appearance Turbid Urine pH 7.0 Ur Specific [place] 1.010 Urine Protein Negative Urine Glucose (UA) Negative Urine Ketones Negative Urine Blood Small (1+) H Urine Nitrite Positive H Ur Leukocyte Esterase Large (3+) H Urine RBC 0-2 Urine WBC >50 H Ur Squamous Epith Cells 0-2 Urine Bacteria 4+ Hyaline Casts 0-2 Stool Occult Blood Urine Opiates Screen Not Detected Urine Fentanyl Screen Not Detected Ur Barbiturates Screen Not Detected Ur Phencyclidine Scrn Not Detected Ur Amphetamines Screen Not Detected U Benzodiazepines Scrn Not Detected Urine Cocaine Screen Not Detected U Marijuana (THC) Screen Not Detected Blood Type Antibody Screen 08/25/23 08/25/23 08/25/23 19:46 20:02 20:30 WBC 5.6 RBC 3.78 L Hgb 10.6 L Hct 36.1 L MCV 95.5 D MCH 28.0 MCHC 29.4 L RDW 13.0 Plt Count 169 D MPV 10.5 Immature Gran % (Auto) 0.4 Neut % (Auto) 67.7 Lymph % (Auto) 21.5 [place] % (Auto) 7.9 Eos % (Auto) 2.0 Baso % (Auto) 0.5 Lymph # (Auto) 1.2 [place] # (Auto) 0.4 Eos # (Auto) 0.1 Baso # (Auto) 0.0 Abs Immat Gran (auto) 0.02 Absolute Neuts (auto) 3.8 Absolute Nucleated RBC 0.000 Nucleated RBC % (auto) 0.0 Hold Purple Top SEE NOTE PT INR APTT Sodium Potassium Chloride Carbon Dioxide Anion Gap BUN Creatinine Estim Creat Clear Calc Estimated GFR Random Glucose Lactic Acid Calcium Magnesium Total Bilirubin Direct Bilirubin AST ALT Alkaline Phosphatase Total Creatine Kinase Troponin I High Sens C-Reactive Protein B-Natriuretic Peptide Total Protein Albumin TSH Hold Yellow Top Urine Color Urine Appearance Urine pH Ur Specific [place] Urine Protein Urine Glucose (UA) Urine Ketones Urine Blood Urine Nitrite Ur Leukocyte Esterase Urine RBC Urine WBC Ur Squamous Epith Cells Urine Bacteria Hyaline Casts Stool Occult Blood POSITIVE Urine Opiates Screen Urine Fentanyl Screen Ur Barbiturates Screen Ur Phencyclidine Scrn Ur Amphetamines Screen U Benzodiazepines Scrn Urine Cocaine Screen U Marijuana (THC) Screen Blood Type O Positive Antibody Screen NEGATIVE 08/26/23 08/26/23 08/27/23 01:37 04:45 06:31 WBC 6.0 RBC 3.62 L Hgb 10.1 L 10.1 L 10.7 L Hct 31.0 L 31.6 L 32.7 L MCV 87.3 D MCH 27.9 MCHC 32.0 RDW 12.8 Plt Count 229 D MPV 9.9 Immature Gran % (Auto) 0.5 H Neut % (Auto) 68.6 Lymph % (Auto) 19.0 L [place] % (Auto) 7.7 Eos % (Auto) 3.2 Baso % (Auto) 1.0 Lymph # (Auto) 1.1 L [place] # (Auto) 0.5 Eos # (Auto) 0.2 Baso # (Auto) 0.1 Abs Immat Gran (auto) 0.03 Absolute Neuts (auto) 4.1 Absolute Nucleated RBC 0.000 Nucleated RBC % (auto) 0.0 Hold Purple Top PT 27.5 H D INR 2.3 H APTT Sodium 137 Potassium 4.1 D Chloride 101 Carbon Dioxide 28 Anion Gap 12 BUN 9 Creatinine 0.95 Estim Creat Clear Calc 51.0 Estimated GFR 58 Random Glucose 81 Lactic Acid Calcium 8.8 Magnesium Total Bilirubin 0.3 Direct Bilirubin AST 14 ALT 9 Alkaline Phosphatase 71 Total Creatine Kinase 33 Troponin I High Sens C-Reactive Protein 1.02 H B-Natriuretic Peptide Total Protein 5.9 L Albumin 3.4 L TSH Hold Yellow Top See Note Urine Color Urine Appearance Urine pH Ur Specific [place] Urine Protein Urine Glucose (UA) Urine Ketones Urine Blood Urine Nitrite Ur Leukocyte Esterase Urine RBC Urine WBC Ur Squamous Epith Cells Urine Bacteria Hyaline Casts Stool Occult Blood Urine Opiates Screen Urine Fentanyl Screen Ur Barbiturates Screen Ur Phencyclidine Scrn Ur Amphetamines Screen U Benzodiazepines Scrn Urine Cocaine Screen U Marijuana (THC) Screen Blood Type Antibody Screen 08/28/23 08/28/23 08/28/23 07:12 07:12 07:12 WBC 6.7 RBC 3.82 L Hgb 10.4 L Hct 32.9 L MCV 86.1 MCH 27.2 MCHC 31.6 RDW 12.8 Plt Count 222 MPV 9.4 Immature Gran % (Auto) Neut % (Auto) Lymph % (Auto) [place] % (Auto) Eos % (Auto) Baso % (Auto) Lymph # (Auto) [place] # (Auto) Eos # (Auto) Baso # (Auto) Abs Immat Gran (auto) Absolute Neuts (auto) Absolute Nucleated RBC 0.000 Nucleated RBC % (auto) 0.0 Hold Purple Top PT Cancelled 14.1 H D INR Cancelled 1.2 H APTT Sodium Potassium Chloride Carbon Dioxide Anion Gap BUN Creatinine Estim Creat Clear Calc Estimated GFR Random Glucose Lactic Acid Calcium Magnesium Total Bilirubin Direct Bilirubin AST ALT Alkaline Phosphatase Total Creatine Kinase Troponin I High Sens C-Reactive Protein B-Natriuretic Peptide Total Protein Albumin TSH Hold Yellow Top Urine Color Urine Appearance Urine pH Ur Specific [place] Urine Protein Urine Glucose (UA) Urine Ketones Urine Blood Urine Nitrite Ur Leukocyte Esterase Urine RBC Urine WBC Ur Squamous Epith Cells Urine Bacteria Hyaline Casts Stool Occult Blood Urine Opiates Screen Urine Fentanyl Screen Ur Barbiturates Screen Ur Phencyclidine Scrn Ur Amphetamines Screen U Benzodiazepines Scrn Urine Cocaine Screen U Marijuana (THC) Screen Blood Type Antibody Screen Airway Mallampati Class: IV TM Dist: <=3cm Neck ROM: Limited Denture: Upper and Lower Loose/Missing/Broken Teeth: No Heart: rrr Lungs: cta Assessment and Plan Final Anesthetic Review Family History of Problems with Anesthesia: No History of Problems with Anesthesia: No NPO: Yes ASA Class: IV Final Preanesthetic Review: No Changes in Pt Med Stat, Meds/Allgs Chart Reviewed, Consent Obtained/Reviewed and Anes Risks/Benef Reviewed Patient Risk: High Procedure Risk: High Anesthetic Plan Anesthetic Plan: MAC: Disposition: Standard PACU
--- NOTE | 2023-08-28 11:33 | PM.EVENT ---
Event Note Date of Service: 08/28/23 Event Note: EGD no bleeding no ulcer exam is basically normal antral biopsies obtained rec: ok to restart anticoagulation continue ppi f/u bx results. Time Spent With Patient Time: Total time managing care of this patient today ____ minutes.
--- NOTE | 2023-08-28 11:52 | MHC.CM.PN ---
Gastric biopsy performed today. Per MD rounds AC therapy resumes today. DP resume PATHOLOGY SECRETARY services. Patients son will provide transport home.
--- NOTE | 2023-08-28 14:12 | HO.PM.IMPN ---
Subjective Subjective Date of Service: 08/28/23 Interval History: afib,anemia Review of Systems Denies any complaint of chest pain or shortness a breath or abdominal pain Denies any gross bleeding Physical Exam Vital Signs: Vital Signs: Last Vital Signs Temp 98.1 F 08/28/23 12:24 Pulse 52 08/28/23 12:24 Resp 18 08/28/23 12:24 BP 150/70 H 08/28/23 12:24 Pulse Ox 92 08/28/23 12:24 O2 Del Method Room Air 08/28/23 12:24 O2 Flow Rate 6 08/28/23 11:30 BMI result Body Mass Index 40.4 Appearance: Alert.? Oriented X3.? cvs: rrr, [id number] , no murmur res: clear to auscultation ,no rhonchii or wheezing abd: no rebound or guarding ,nt, bs present. ext pulses present , no cyanosis. neuro: axo3 , nonfocal. Objective Data Active Medications Acetaminophen (Acetaminophen 325 Mg Tablet) 975 mg PO Q6H PRN PRN Reason: Pain, Mild (Pain Scale 1-3) Last Admin: 08/26/23 11:55 Dose: 975 mg Documented By: JUSTIN Albuterol Sulfate (Albuterol Sulfate (0.083%) 2.5 Mg/3 Ml Vial.Neb) 2.5 mg INHALE Q4H PRN PRN Reason: wheezing Artificial Tears (Artificial Tears 15 Ml Drops) 1 drop EYE-BOTH Q4H PRN PRN Reason: Dry Eye(S) Atorvastatin Calcium (Atorvastatin Calcium 20 Mg Tablet) 20 mg PO BEDTIME [facility] Last Admin: 08/27/23 20:50 Dose: 20 mg Documented By: ALTHEA Doxepin HCl (Doxepin Hcl 25 Mg Capsule) 25 mg PO BEDTIME [facility] Last Admin: 08/27/23 20:50 Dose: 25 mg Documented By: ALTHEA Enoxaparin Sodium (Enoxaparin Sodium 100 Mg/Ml Syringe) 90 mg SUBCUT Q12H [facility] Last Admin: 08/27/23 06:25 Dose: 90 mg Documented By: JORDON Escitalopram Oxalate (Escitalopram Oxalate 5 Mg Tablet) 5 mg PO DAILY [facility] Last Admin: 08/28/23 08:29 Dose: 5 mg Documented By: JODI Escitalopram Oxalate (Escitalopram Oxalate 20 Mg Tablet) 20 mg PO DAILY [facility] Last Admin: 08/28/23 08:29 Dose: 20 mg Documented By: JODI Fluticasone/Vilanterol (Fluticasone/Vilanterol 100/25 Blst.W.Dev) 1 puff INHALE RDAILY PRN PRN Reason: Wheezing Gabapentin (Gabapentin 300 Mg Capsule) 300 mg PO BID [facility] Last Admin: 08/28/23 08:29 Dose: 300 mg Documented By: JODI Meropenem 1 gm/ Sodium (Chloride) 100 mls @ 200 mls/hr IV Q8H [facility] Last Infusion: 08/28/23 08:58 Dose: Infused Documented By: JODI Dextrose/Sodium Chloride (D5ns) 1,000 mls @ 50 mls/hr IVCONT .Q20H [facility] Last Admin: 08/28/23 00:24 Dose: 50 mls/hr Documented By: ALTHEA Lorazepam (Lorazepam 1 Mg Tablet) 1 mg PO BEDTIME PRN PRN Reason: anxiety Last Admin: 08/27/23 18:07 Dose: 1 mg Documented By: JODI Magnesium Oxide (Magnesium Oxide 400 Mg Tablet) 200 mg PO DAILY [facility] Last Admin: 08/28/23 08:29 Dose: 200 mg Documented By: JODI Metoprolol Tartrate (Metoprolol Tartrate 100 Mg Tablet) 100 mg PO BID [facility]; Protocol Last Admin: 08/28/23 08:29 Dose: 100 mg Documented By: JODI Multivitamins/Vitamin C (Multivitamin Tablet) 1 tab PO DAILY [facility] Last Admin: 08/28/23 08:29 Dose: 1 tab Documented By: JODI Pantoprazole Sodium (Pantoprazole Sodium 40 Mg/10 Ml Vial) 40 mg IVPUSH Q12H [facility] Last Admin: 08/28/23 08:28 Dose: 40 mg Documented By: JODI Sodium Chloride (0.9 % Sodium Chloride Flush 3 Ml Syringe) 3 ml IVFLUSH QSHIFT [facility] Last Admin: 08/28/23 08:28 Dose: 3 ml Documented By: JODI Tolterodine Tartrate (Tolterodine Tartrate La 4 Mg Cap.Er.24h) 4 mg PO DAILY [facility] Last Admin: 08/28/23 08:29 Dose: 4 mg Documented By: JODI Labs 08/28/23 07:12 08/26/23 04:45 Labs: Laboratory Results - last 24 hr 08/28/23 08/28/23 08/28/23 07:12 07:12 07:12 MCV 86.1 MCH 27.2 MCHC 31.6 RDW 12.8 Plt Count 222 MPV 9.4 Absolute Nucleated RBC 0.000 Nucleated RBC % (auto) 0.0 PT Cancelled 14.1 H D INR Cancelled 1.2 H Microbiology Microbiology Results: Microbiology 08/25/23 18:02 Urine Culture - Final Urine clean catch - Urine hod[place] top Escherichia coli 08/25/23 17:18 Blood Culture - Preliminary Blood - Venous No growth after 48 hours. 08/25/23 17:20 Blood Culture - Preliminary Blood - Venous No growth after 48 hours. 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 Urology consult eval-no acute intervention,continue iv antibiotics.wait for senstivities. Anemia normocytic : Occult blood test positive. No overt bleeding. Continue to monitor H&H (so far stable) around 10.1. Continue Protonix 40 mg IV twice daily. Hold warfarin. inr today 1.2 s/p 10 mg vitamin k(08/27/23). d/w Gi- recomended for moniter h/h ,switch warfarin to lovenox npo , gentle hydration , going for egd today Iron deficiency anemia. F/U by Dr. Arriaga. H&H stable. Continue to monitor. Mild hyperkalemia likely secondary to PO KCl. resolved with Hold potassium pills. Ch.HFpEF. Patient complains of dyspnea on exertion. Normal O2 sat on room air. BNP is elevated and CXR showed ?pulmonary edema. Continue torsemide. Lower extremity edema, bilateral secondary to above. Continue torsemide. Paroxysmal atrial fibrillation. Continue metoprolol. Warfarin on hold due to anemia. Depression, anxiety + PTSD. Continue doxepin, Lexapro and Ativan. Asthma. Not in acute exacerbation. Normal oxygen saturation on room air. Albuterol as needed. Hyperlipidemia. Continue statin. Morbid obesity. BMI 40.4 kg/m2. Encouraged for Weight loss and cutdown calories. Urinary incontinence. Continue Tolterodine. DVT prophylaxis: SCDs Ongoing need hospitalization for : UTI, anemia workup- Patient will need empiric IV antibiotic therapy and frequent monitoring of vital signs and labs H&H and renal function and electrolyte monitoring, evaluation by subspecialty. Quality Stroke Does the patient have a stroke diagnosis?: No VTE Prior VTE?: No VTE Risk Level:: Medical - moderate - high VTE Device Contraindication: Treatment Not Indicated VTE Drug Contraindication: N/A - Med Ordered
[2023-08-28] MEDS: Enoxaparin Sodium 100 MG/ML SYRINGE 90 MG SUBCUT (15:11)
--- NOTE | 2023-08-28 16:07 | OP_ITS ---
DATE OF SERVICE: 08/28/2023 SURGEON: Ramses Cunningham MD INDICATIONS: Anemia and black stools. PREOPERATIVE DIAGNOSIS: POSTOPERATIVE DIAGNOSIS: PROCEDURE PERFORMED: Upper endoscopy with biopsy. ESTIMATED BLOOD LOSS: COMPLICATIONS: ANESTHESIA: Monitored anesthesia care. ASSISTANTS: SPECIMENS: DESCRIPTION OF PROCEDURE: A history and physical was performed. The risks and benefits of the procedure were explained to the patient. Informed consent was obtained. The patient was placed in the left lateral decubitus position. The Olympus video gastroscope was introduced into the esophagus, stomach, and duodenum. Examination was performed. The scope was removed. She tolerated the procedure well and was returned to the recovery area in stable condition. FINDINGS: Esophagus: The esophagus was normal. There was no esophagitis. Stomach: The stomach showed no evidence of masses or ulcers. There were several benign, small, less than 5 mm appearing gastric polyps in the body and fundus consistent with fundic gland polyps. Antral biopsies were obtained. Duodenum: The bulb and second portion were basically normal. No bleeding site was identified. IMPRESSION: Normal upper endoscopy. RECOMMENDATION: 1. Follow up the biopsy results. 2. Continue proton pump inhibitor. MD DANG Levy/MODL / [id number]
[2023-08-28] MEDS: LORazepam 1 MG TABLET PO (19:44)
[2023-08-28] MEDS: Doxepin HCl 25 MG CAPSULE PO (22:03)
[2023-08-28] MEDS: Atorvastatin Calcium 20 MG TABLET PO (22:03)
[2023-08-29 03:50] VITALS: BP 175/76; PULSE 61; RESP 20; TEMP 36.5; O2SAT 91
[2023-08-29] MEDS: Enoxaparin Sodium 100 MG/ML SYRINGE 90 MG SUBCUT ×2 (05:00→15:04)
[2023-08-29 07:11] LABS: INTERNATIONAL NORM RATIO 1.1 (0.9-1.1); Prothrombin Time 13.7 SEC (11.1-13.3)
[2023-08-29 08:00] VITALS: BP 188/86; PULSE 62; RESP 20; TEMP 36.3; O2SAT 93
[2023-08-29 08:11] LABS: Hematocrit 35.5 % (37.0-47.0); Hemoglobin 11.4 g/dl (12.0-16.0)
[2023-08-29] MEDS: 0.9 % Sodium Chloride Flush 3 ML SYRINGE IVFLUSH ×2 (09:30→15:05)
[2023-08-29] MEDS: Bumetanide 1 MG/4 ML VIAL IVPUSH (09:30)
[2023-08-29] MEDS: Gabapentin 300 MG CAPSULE PO (09:31)
[2023-08-29] MEDS: Multivitamin TABLET 1 TAB PO (09:31)
[2023-08-29] MEDS: Escitalopram Oxalate 20 MG TABLET PO (09:31)
[2023-08-29] MEDS: Escitalopram Oxalate 5 MG TABLET PO (09:31)
[2023-08-29] MEDS: Magnesium Oxide 400 MG TABLET 200 MG PO (09:31)
[2023-08-29] MEDS: Metoprolol Tartrate 100 MG TABLET PO (09:31)
[2023-08-29] MEDS: Tolterodine Tartrate LA 4 MG CAP.ER.24H PO (09:31)
[2023-08-29 11:06] VITALS: BP 149/69; PULSE 55; RESP 20; TEMP 36.1; O2SAT 94
--- NOTE | 2023-08-29 13:00 | MHC.CM.PN ---
Addendum entered by Evette Allen 08/29/23 16:00: DCS AND FACE TO FACE SENT TO [facility] Original Note: CM MET WITH PT TO DISCUSS DC PLANNING PT WILL DC HOME TODAY SHE IS UNSURE IF SHE WANTS VNA SHE IS AWARE A VNA REFERRAL WILL BE PLACED TO [facility] FOR PT/SN, AND SHE CAN DECLINE WHEN THEY CALL IF SHE DOES NOT FEELS HE NEEDS THEM. PT SAYS SHE HAS HAD LOVENOX IN THE PAST, SO SHE FEELS COMFORTABLE ADMINISTERING IT. PT CONFIRMS HER SON WILL TRANSPORT, SHE SAYS SHE HAS 34 STAIRS TO GET TO HER APARTMENT BUT THERE ARE CHAIRS [place] FOR [place] TO REST. SHE REPORTS FEELING SHE WILL BE FINE TO GET TO HER APARTMENT.
--- NOTE | 2023-08-29 13:40 | PM.DS ---
DS: Providers Provider Date of Service: 08/29/23 Date of admission: 08/25/23 20:53 Date of discharge: 08/29/23 Primary care physician: Negrita Bains MD Consults: 08/25/23 20:55 Consult to Gastroenterology Routine Consulting Provider: Ramses Cunningham Reason for consultation: GI bleeding Has provider been notified: No 08/26/23 05:15 Consult to Urology Routine Consulting Provider: Zackary Arreguin Reason for consultation: Gross hematuria Has provider been notified: No Attending physician on discharge: Luigi Ham Discharging clinician: Luigi Ham DS: Diagnosis Discharge Diagnosis (1) Anemia: Status: Acute (2) Urinary tract infection: Status: Acute DS: Summary Hospital Course Hospital Course: 72 years old woman with past medical history significant for interstitial cystitis (recurrent UTIs), HFpEF, atrial fibrillation on warfarin, ulcerative colitis, asthma, s/p mitral and aortic valve replacement (both prosthetic and complicated with RV rupture s/p repair)morbid obesity, essential hypertension, GERD, anxiety + depression and hyperlipidemia presents to the emergency department complaining of generalized weakness and confusion. She also reports dyspnea on exertion but denied chest pain. Has occasional cough. HPI was mostly provided by patient's son who was at bedside. Son mentioned that patient has been having intermittent episodes intermittent gross hematuria, incontinence and abdominal discomfort. She is nausea but denied episodes of vomiting or diarrhea. She has not been taking her diuretics over the last couple of days and noted her legs are swollen. Some things that the patient had a TIA on Thursday because her eyes rolled back. Patient took a course of amoxicillin on August 04. She was seen today by Urology as an outpatient. There is no history of tobacco smoking, alcohol abuse or illicit drug use. Chart review: Multiple urine cultures: E coli (pansensitive), Klebsiella pneumoniae (resistant to ampicillin), Enterococcus faecalis (resistant to levofloxacin, vancomycin and tetracycline) and Raoultella planticola In the ED, she was found to have stable vital signs. There is a mild degree of bradycardia. There is no reported fever and O2 sats are normal on room air. Blood workup showed initial hemoglobin of 10.2. There is mild hyponatremia and mild hyperkalemia. There are no other electrolyte imbalances. BUN creatinine are normal. LFTs are normal. BNP is 1214. TSH is 1.02. Head CT scan showed no acute intracranial abnormality. CXR showed stable enlargement of the cardiac silhouette and question pulmonary venous redistribution. ECG showed sinus bradycardia with PACs and bifascicular block. ED tx: Ceftriaxone 1 g IV, Lasix 40 mg IV, pantoprazole 40 mg IV, Ativan 1 mg PO. Hospital course: Patient came to the hospital for anemia found to have occult blood positive, has history of AFib on warfarin, also has UTI,? of hemturia : Patient was started on PPIs, warfarin placed on hold and Lovenox initiated, H&H monitor stable in range of 10, seen by GI: Status post EGD-Normal upper endoscopy-recommended:Follow up the biopsy results and continue proton pump inhibitor.patient received vitamin K because elevated inr before EGd ,her inr still supratherapeutic-will send patient home with warfarin/Lovenox bridging, monitor INR in 3- 4 days out patiently. moniter cbc outpatient,follow up with GI. Ua -pyuria/bacteruria ,only 2 rbc . Urine culture E coli-sensitive to ceftriaxone,complete ceftin 500 mg po bid for 6more days. No hematuria over the hospital stay, follow-up with Urology outpatient. mild hyperkalemia -seems to be improved by holding potassium supplements. check bmp in 3-4 days ,if needed start potassium supplements. ch HFpEF: cxr seems similar-? mild congestion intially ,but patient is asymptomatic.no hypoxia contiue home torcemide . please follow up bmp,inr ,cbc 3-4 days . patient needs to follow up with pcp ,Gi for Egd biopsy reports. plan: complete ceftin 500 mg po bid for 6more days. mild hyperkalemia -seems to be improved by holding potassium supplements. check bmp in 3-4 days ,if needed start potassium supplements. please follow up bmp,inr ,cbc 3-4 days . patient needs to follow up with pcp ,Gi ( Dr Cunningham's office) for Egd biopsy reports. Patient seen by PT recommended home with PT, patient will be going home with VNA and PT. Above management discussed with the patient and her son in detail length -both understand and in agreement with the above plan, time spent 45 minute. Time Attestation Total time managing care of this patient today: 45 mintues. Discharge Coordination Time (in mins): 45 min Quality: Safe Use of Opioids Does Pt have an Active Cancer Diagnosis on the Problem List?: No Quality: Stroke Does the patient have a stroke diagnosis?: No Physical Exam Vital Signs: Vital Signs: Last Vital Signs Temp 97.0 F 08/29/23 11:06 Pulse 55 08/29/23 11:06 Resp 20 08/29/23 11:06 BP 149/69 H 08/29/23 11:06 Pulse Ox 94 08/29/23 11:06 O2 Del Method Room Air 08/29/23 11:06 O2 Flow Rate 6 08/28/23 11:30 BMI result Body Mass Index 40.4 Appearance: Alert.? Oriented X3.? cvs: rrr, [id number] . res: clear to auscultation ,no rhonchii or wheezing abd: no rebound or guarding ,nt, bs present. ext pulses present , no cyanosis,no edema. neuro: axo3 , nonfocal. DS: Data Data Completed and Pending Completed studies during hospitalization [Text1]: Procedures Control Bleeding in Gastrointestinal Tract, Via Natural or Artificial Opening Endoscopic (04/02/22) Destruction of Cecum, Via Natural or Artificial Opening Endoscopic (04/02/22) Introduction of Other Therapeutic Substance into Lower GI, Via Natural or Artificial Opening Endoscopic (04/02/22) Pending studies at discharge: Pending at discharge 08/28/23 11:22 Surgical [PTH] Routine Labs on day of discharge: Laboratory Results - last 24 hr 08/29/23 06:24 Hgb 11.4 L Hct 35.5 L Hold Purple Top SEE NOTE PT 13.7 H INR 1.1 Preliminary micro results at discharge 08/25/23 17:18 Blood Culture - Preliminary Blood - Venous No growth after 48 hours. 08/25/23 17:20 Blood Culture - Preliminary Blood - Venous No growth after 48 hours. Imaging Chest x-ray: Radiologist's impression: ITS Impressions Head CT 08/25/23 14:45 IMPRESSION: 1. No acute intracranial pathology. 2. Chronic white matter small vessel ischemic changes. Chest X-Ray 08/25/23 18:04 IMPRESSION: Stable enlargement of the cardiac silhouette and question pulmonary venous redistribution. Venous Duplex 08/26/23 19:20 IMPRESSION: No DVT demonstrated in the left lower extremity. Discharge Plan Discharge Anticipated Discharge Date/Time: 08/29/23 12:44 Patient Disposition: Home Health Service Discharge Diagnosis: UTI, anemia with occult blood positive,mild hyperkalemia and ch. chf execerebation. Referrals: [facility] [Outside] - 1 Day (visiting nurse will contact you directly to arrange first visit, you will have nursing home and physical therapy services. ) Negrita Bains MD [Primary Care Provider] - 1 Week Discharge Medications: New cefuroxime axetil 500 mg tablet 500 mg PO BID Qty: 12 0RF enoxaparin 100 mg/mL Syringe 90 mg subcut Q12H Qty: 6 0RF Rx Instructions: patient need lovenox 90 mg q12 hourly until 09/01/23 Continued methenamine hippurate 1 gram tablet 1 g PO DAILY Qty: 90 1RF Hold Instructions: Resume on 03/02/23. doxepin 25 mg capsule 1 cap PO BEDTIME lorazepam 1 mg tablet 1 mg PO DAILY@1800 torsemide 20 mg tablet 2 tab PO DAILY warfarin [Jantoven] 2 mg tablet 2 - 4 mg PO DAILY@1800 Hold Instructions: Resume on 02/26/23. escitalopram oxalate 5 mg tablet 1 tab PO DAILY albuterol sulfate 2.5 mg /3 mL (0.083 %) solution for nebulization 1 vial inhalation Q4H PRN (Reason: wheezing) vitamin B complex Tablet 1 tab PO DAILY magnesium 250 mg Tablet 250 mg PO DAILY ergocalciferol (vitamin D2) 1,250 mcg (50,000 unit) Capsule 1,250 mcg PO WE Patient Comments: thursday biotin 2,500 mcg Capsule 2,500 mcg PO DAILY Acidophilus Capsule 1 cap PO BID Artificial Tears (PF) 0.1-0.3 % Dropperette 1 drp OPHTHALMIC (EYE) Q4H PRN (Reason: Dry Eye(S)) polyethylene glycol 3350 17 gram powder in packet 17 g PO BID PRN (Reason: Constipation) simvastatin [Zocor] 40 mg tablet 40 mg PO BEDTIME ferrous sulfate [Feosol] 325 mg (65 mg iron) tablet 325 mg PO BEDTIME Rx Instructions: do not give ferrous sulfate that is blue fluticasone furoate-vilanterol [Breo Ellipta] 100-25 mcg/dose blister with device 1 ea inhalation DAILY PRN (Reason: Wheezing) metoprolol tartrate [Lopressor] 100 mg tablet 100 mg PO BID escitalopram oxalate [Lexapro] 20 mg tablet 20 mg PO DAILY estradiol [Yuvafem] 10 mcg tablet 10 mcg vaginal 2XW 28 Days Qty: 8 5RF Rx Instructions: Insert vaginal tablet 2 times per week Gemtesa 75 mg tablet 75 mg PO DAILY 90 Days Qty: 90 1RF albuterol sulfate [Ventolin HFA] 90 mcg/actuation HFA aerosol inhaler 2 puff inhalation Q4H PRN (Reason: wheezing) solifenacin [Vesicare] 10 mg tablet 10 mg PO DAILY 90 Days Qty: 90 4RF ascorbic acid (vitamin C) 1,000 mg tablet 1 g PO DAILY 90 Days Qty: 90 1RF gabapentin 300 mg capsule 300 mg PO BID dexlansoprazole 30 mg capsule,biphase delayed releas 30 mg PO DAILY@1900 Held losartan [Cozaar] 25 mg tablet 25 mg PO DAILY Hold Instructions: Resume on 09/01/23. potassium chloride [K-Tab] 10 mEq tablet extended release 10 meq PO DAILY Hold Instructions: Resume on 08/30/23. Discharge Orders: Discharge Order (Routine); Ordered 08/29/23 Ordered By: Luigi Ham Diet: Advance to usual diet Activity on Discharge: As tolerated Stand Alone Forms: Patient Portal Discharge page Print Language: Kazakh Other Ambulatory Orders: Basic Metabolic Panel (Routine) Timeframe: 3 Days Facility: [facility] - Location: Laboratory Ordered By: Luigi Ham Complete Blood Count no Diff (Routine) Timeframe: 3 Days Facility: [facility] - Location: Laboratory Ordered By: Luigi Ham Prothrombin Time INR (Routine) Timeframe: 3 Days Facility: [facility] - Location: Laboratory Ordered By: Luigi Ham Care Plan Goals: Patient came to the hospital for anemia found to have occult blood positive, has history of AFib on warfarin, also has UTI,? of hemturia : Patient was started on PPIs, warfarin placed on hold and Lovenox initiated, H&H monitor stable in range of 10, seen by GI: Status post EGD-Normal upper endoscopy-recommended:Follow up the biopsy results and continue proton pump inhibitor.patient received vitamin K because elevated inr before EGd ,her inr still supratherapeutic-will send patient home with warfarin/Lovenox bridging, monitor INR in 3- 4 days out patiently. moniter cbc outpatient,follow up with GI. mild hyperkalemia -seems to be improved by holding potassium supplements. check bmp in 3-4 days ,if needed start potassium supplements. complete ceftin 500 mg po bid for 6more days. please follow up bmp,inr ,cbc 3-4 days . patient needs to follow up with pcp ,Gi for Egd biopsy reports. Patient seen by PT recommended home with PT, patient will be going home with [facility] and PT. Health Concerns: as above. Plan of Treatment: as above. Assessment: as above.
--- NOTE | 2023-08-29 13:52 | P.F2F_ITS ---
Service Date Service Date: 08/29/23 Encounter Date of encounter: 08/29/23 Encounter: Anemia with occult blood positive, UTI Reasons for Services Signs and symptoms assessed: Abdominal pain or fever or any bleeding Reason for [facility]: CV/CP assess and/or care (chf education ,moniter weight), monitoring of PT/INR, medication management, medication treatment and teach disease management Reason for physical therapy: home safety and mobility, therapeutic exercises, restore joint function, gait/transfer training, assess need for DME, ADL training, energy conservation and other MD Overseeing Care: Negrita Bains Homebound: Leaving the home is medically contraindicated at this time without the asist of a device and/or another person due th the listed conditions above and below. Reason homebound: weakness related to hospital stay Homebound supporting statement: Patient is generalized weak with multiple comorbidities including AFib with subtherapeutic INR, anemia, UTI, generalized weak post hospitalization stay: Need help with lab draws, PT, appointments. Certification: Based on the above findings, I certify that this patient is confined to the home and needs intermittent [facility] care, physical therapy and/or speech therapy, or continues to need occupational therapy. The patient is under my care, and I have initiated the establishment of the plan of care. The patient will be followed by a physician who will periodically review the plan of care. Time Spent With Patient Time: Total time managing care of this patient today ____ minutes.
[2023-08-29 14:53] VITALS: BP 164/72; PULSE 55; RESP 20; TEMP 36.1; O2SAT 95
[2023-08-29] MEDS: cefuroxime axetiL 500 MG TABLET PO (15:04)
--- NOTE | 2023-08-29 16:49 | HO.POSTANES ---
Post Anesthesia Evaluation Post Anesthesia Evaluation Date of Service: 08/29/23 Vital Signs: Vital Signs Temp Pulse Resp BP Pulse Ox O2 Del Method 08/29/23 14:53 97.0 F 55 20 164/72 H 95 Room Air 08/29/23 11:06 97.0 F 55 20 149/69 H 94 Room Air 08/29/23 08:00 97.3 F 62 20 188/86 H 93 Room Air Anesthesia: Monitored Mental Status: Awake Pain Control: Satisfactory Nausea/Vomiting: None Hydration: Adequate Anesthesia-Related Issues: No Anes. Related Issues
== END 2023-08-29 16:56 | disposition home health service (06) | DRG 690 ==
LOC: HO.ED 19:13 → HO.EDOVER 21:02 → HO.IMC 08-26 17:41
PROVIDERS: Internal Medicine Gastroenterology; Physician Assistant; Admitting Provider Internal Medicine; Emergency Provider Emergency Medicine Emergency Medical Services; PCP Internal Medicine; Visit Provider Internal Medicine
PROC: 0DB78ZX Excision of Stomach, Pylorus, Via Natural or Artificial Opening Endoscopic, Diagnostic (ICD-10-PCS; principal; 2023-08-28 15:20)
DX: N39.0 Urinary tract infection, site not specified (principal); E87.1 Hypo-osmolality and hyponatremia; I50.32 Chronic diastolic (congestive) heart failure; Z68.41 Body mass index [BMI] 40.0-44.9, adult; Z16.11 Resistance to penicillins; Z16.23 Resistance to quinolones and fluoroquinolones; R19.5 Other fecal abnormalities; J45.40 Moderate persistent asthma, uncomplicated; B96.20 Unspecified Escherichia coli [E. coli] as the cause of diseases classified elsewhere; F41.9 Anxiety disorder, unspecified; F32.9 Major depressive disorder, single episode, unspecified; E78.5 Hyperlipidemia, unspecified; R31.0 Gross hematuria; R32 Unspecified urinary incontinence; D50.9 Iron deficiency anemia, unspecified; E66.01 Morbid (severe) obesity due to excess calories; Z95.2 Presence of prosthetic heart valve; Z87.440 Personal history of urinary (tract) infections; Z79.01 Long term (current) use of anticoagulants; Z79.899 Other long term (current) drug therapy
CPT/HCPCS: 36415; 51798; 70450; 71045; 80048; 80053; 80076; 80307; 81001; 81003; 82272; 82550; 83605; 83735; 83880; 84443; 84484; 85014; 85018; 85025; 85027; 85610; 85730; 86140; 86850; 86900; 86901; 87040; 87086; 87088; 87186; 88305; 88342; 93005; 93971; 97162; 99212; 99285; C9113; J0696; J1596; J1650; J1939; J1940; J2185; J2543; J2704; J3430; J7120

== ENCOUNTER → 2023-08-25 13:47 | Outpatient (BNV) | payer MEDICARE, MEDICAID, SELFPAY | PROVIDERS: Emergency Provider Emergency Medicine Emergency Medical Services; PCP Internal Medicine; Visit Provider Internal Medicine Cardiovascular Disease | DX: R53.1 Weakness (principal) | CPT/HCPCS: 93010 ==

== ENCOUNTER → 2023-08-25 20:53 | Outpatient (BNV) | payer MEDICARE, MEDICAID, SELFPAY | PROVIDERS: Admitting Provider Internal Medicine; Emergency Provider Emergency Medicine Emergency Medical Services; PCP Internal Medicine; Visit Provider Internal Medicine | DX: D50.9 Iron deficiency anemia, unspecified (principal); N39.0 Urinary tract infection, site not specified | CPT/HCPCS: 99223; 99231; 99232; 99239; 99499; G0180 ==

== ENCOUNTER 2023-09-01 15:52 | Outpatient (REF) | payer MEDICARE, OTHER, SELFPAY ==
[2023-09-01 17:06] LABS: Hematocrit 34.4 % (37.0-47.0); Hemoglobin 11.2 g/dl (12.0-16.0); Mean Corpuscular HGB Conc 32.6 g/dl (31.0-35.0); Mean Corpuscular Hemoglobin 27.5 pg (27.0-33.0); Mean Corpuscular Volume 84.3 fL (80.0-98.0); Mean Platelet Volume 10.3 fL (9.4-12.3); Platelet Count 226 X10*3/uL (160-400); Red Blood Count 4.08 X10*6/uL (4.20-5.50); Red Cell Distribution Width 12.6 % (11.0-16.0); White Blood Count 8.1 X10*3/uL (4.8-10.8)
[2023-09-01 17:12] LABS: INTERNATIONAL NORM RATIO 1.1 (0.9-1.1); Prothrombin Time 13.2 SEC (11.1-13.3)
[2023-09-01 17:41] LABS: Anion Gap 13 (12-20); Blood Urea Nitrogen 12 mg/dL (9-16); Calcium 8.9 mg/dL (8.4-10.2); Carbon Dioxide 29 mmol/L (22-29); Chloride 94 mmol/L (96-108); Estimated Glomerular Filt Rate > 60; Glucose Random 80 mg/dL (60-115); Potassium 3.4 mmol/L (3.3-5.1); Sodium 133 mmol/L (135-145)
== END 2023-09-01 15:53 | disposition home or self-care (01) ==
LOC: HO.LAB 15:52
PROVIDERS: PCP Internal Medicine; Visit Provider Internal Medicine
DX: E87.5 Hyperkalemia (principal); D64.9 Anemia, unspecified; Z51.81 Encounter for therapeutic drug level monitoring; Z79.01 Long term (current) use of anticoagulants
CPT/HCPCS: 36415; 80048; 85027; 85610

== ENCOUNTER 2023-09-08 14:04 | Outpatient (AMB) | payer MEDICARE, MEDICAID, SELFPAY ==
--- NOTE | 2023-09-08 14:06 | A.OFFPC_ITS ---
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 Accompanied by: Son ([place]) Allergies adhesive [ADHESIVE] Allergy (Unknown, Verified 09/08/23 14:06) LOCAL REACTION melatonin Allergy (Verified 09/08/23 14:06) PYSCHOSIS blue dye Adverse Reaction (Verified 09/08/23 14:06) Diarrhea Medication List - Last Reconciled 09/08/23 by Negrita Bains MD albuterol sulfate 1 vial inhalation Q4H PRN albuterol sulfate 90 mcg/actuation (Ventolin HFA) 2 puffs inhalation Q4H PRN ascorbic acid (vitamin C) 1 g PO DAILY 90 days biotin 2,500 mcg PO DAILY dexlansoprazole 30 mg PO DAILY@1900 dextran 70-hypromellose (PF) 0.1-0.3 % (Artificial Tears (PF)) 1 drp ophthalmic (eye) Q4H PRN doxepin 1 cap PO BEDTIME ergocalciferol (vitamin D2) 1,250 mcg PO WE escitalopram oxalate 1 tab PO DAILY escitalopram oxalate (Lexapro) 20 mg PO DAILY estradiol (Yuvafem) 10 mcg vaginal 2XW 28 days ferrous sulfate (Feosol) 325 mg PO BEDTIME fluticasone furoate-vilanterol 100-25 mcg/dose (Breo Ellipta) 1 ea inhalation DAILY PRN gabapentin 300 mg PO BID Lactobacillus acidophilus (Acidophilus capsule) 1 cap PO BID lorazepam 1 mg PO DAILY@1800 losartan (Cozaar) 25 mg PO DAILY magnesium 250 mg PO DAILY methenamine hippurate 1 g PO DAILY metoprolol tartrate (Lopressor) 100 mg PO BID omega 7-yaa-dab-fish oil 100-160-1,000 mg (Fish Oil) caps PO polyethylene glycol 3350 17 grams PO BID PRN potassium chloride ER (K-Tab) 10 mEq PO DAILY simvastatin (Zocor) 40 mg PO BEDTIME solifenacin (Vesicare) 10 mg PO DAILY 90 days torsemide 2 tabs PO DAILY vibegron (Gemtesa) 75 mg PO DAILY 90 days vit C,Y-Ax-gxuqi-lutein-zeaxan 250-90-40-1 mg (PreserVision AREDS-2) 1 tab PO BID vitamin B complex 1 tab PO DAILY warfarin (Jantoven) 2 - 4 mg PO DAILY@1800 Tobacco use date assessed: 09/08/23 Fall risk assessment: 1 Fall in past year Last assessed Fall Risk: 09/08/23 Dental Screening Dental Screen Date: 09/08/23 Did you have a dental visit in the last 12 months?: Yes Did you have a dental problem in the last 6 months where you did not have access to dental care?: No Was dental information given to patient?: Patient has dentist HPI HDF HPI Details Patient is 72-year-old female came in today for hospital discharge follow-up dated 08/25/2023 [facility] , date of discharge 08/29/2023 Patient have a history of anemia with multiple transfusions in the past, history of atrial fibrillation currently on warfarin, history of aortic valve replacement, interstitial cystitis, congestive heart failure with preserved ejection fraction, PTSD, osteoarthritis multiple joints, lipid disorder, generalized anxiety disorder with panic attacks, depression, chronic GERD, osteoporosis, asthma, hypertension. She presented with increasing edema as she stopped her diuretic because she was having diarrhea. There was a question of TIA as history also revealed some confusion and episode of eyes rolled back. CT scan of head was grossly negative for any acute evidence of bleeding. Her urine was abnormal she was started on Rocephin Chest x-ray showed mild Congestive heart failure BNP elevated consistent with congestive heart failure 12,000 Hemoglobin came back at 10 INR 1.9 TSH was normal GFR 53.2 with normal creatinine and electrolytes except potassium of 5.2 Magnesium was normal Liver enzymes normal Urine drug screen negative Patient was admitted for treatment EKG showed sinus bradycardia with PACs and bifascicular block Had EGD in hospital showed normal upper endoscopy protein pump inhibitors were continued Urine cultures showed E coli sensitive to ceftriaxone Patient was discharged on Ceftin 500 mg b.i.d. for 6 more days Potassium improved while in the hospital BMP need to be followed Dr. Cunningham performed the EGD Home PT was ordered by [facility] Biopsy report showed Stomach, antrum, biopsy: Antral-type mucosa with moderate chronic inactive inflammation and intestinal metaplasia; negative for dysplasia; no Helicobacter organisms seen She has already discussed that with Dr. Cunningham She has appointment coming up with [facility] September 28 And is in process of transferring her cardiology care to [facility] and has appointment with them on October 19 She has not started physical therapy, as her son says the bill from previous physical therapies were too high for them to address. She will be going in for eye surgery in September and for that reason she will return 21 of September for preop visit Meanwhile she is to repeat BNP and electrolytes today [facility] Medical History CHF exacerbation History of stroke Abnormal colonoscopy (~04/03/22) Wheezing Anemia Urinary incontinence Right carpal tunnel syndrome Post cardiotomy syndrome PTSD (post-traumatic stress disorder) Osteoarthritis, hip, bilateral Interstitial cystitis Lipid disorder Insomnia Generalized anxiety disorder with panic attacks Major depression, recurrent History of ulcerative colitis Chronic GERD Diastolic congestive heart failure Paroxysmal atrial fibrillation Age related osteoporosis Asthma, moderate persistent Anticoagulant long-term use Iron deficiency anemia Establishing care with new doctor, encounter for Hypertension, essential Surgical History Hx of tonsillectomy Hx of colonoscopy Hx of rotator cuff surgery History of arthroplasty of both knees Hx of hysterectomy Status post mitral valve replacement Status post aortic valve replacement History of kyphoplasty History of artificial heart valve Family History Daughter Mental health disorder Substance use disorder Father Emphysema lung Mother Heart disease Stroke Pacemaker Arthritis Family/Other Colon cancer Sister Crohn's disease Social History Household Members: Children Household Members Other:: son Housing: Apartment Are you a primary customer care specialist to a significant other at home: No Do you presently have visiting nurse or other home services: No Alcohol intake: never Patient Tobacco Use Status: Former Tobacco user Quit Date: 30 yrs ago e-Cigarette/Vaping Use: Never Used Substance Use Type: Marijuana Advance Directives Date on File: 03/17/22 service: No Current occupational status: retired Cognitive needs: No Hearing needs: No Vision needs: Yes Questionnaire Thrive Questionnaire Date Thrive assessed: 08/26/23 GUANACO-7 AMB Questionnaire GUANACO-7 Date GUANACO - 7 assessed: 10/30/21 Source: Developed by Drs. Marco Antonio Diaz, Janeth Alec Cole and colleagues, with an educational lizett from [id number]. Review of Systems Const Denies chills and Denies fever(s) ENT Denies epistaxis and Denies nasal discharge Card Denies chest pain Resp Denies chest congestion, Denies cough and Denies hemoptysis GI Denies nausea Skin/Breast Denies rash Neuro Reports no additional complaints Psych Reports no additional complaints Endo Reports no additional complaints Physical exam (Primary Care) Vital Signs: Last Vital Signs Pulse 58 09/08/23 14:09 BP 124/70 09/08/23 14:09 Pulse Ox 94 09/08/23 14:09 Oxygen Delivery Method Room Air 09/08/23 14:09 BMI result Body Mass Index 39.6 Tobacco/Smoking Status: Tobacco use Status Tobacco use date assessed 09/08/23 09/08/23 14:08 Patient Tobacco Use Status Former Tobacco user 09/08/23 14:08 e-Cigarette/Vaping Use Never Used 09/08/23 14:08 Thrive Assessment: Date of Thrive Assessment Date Thrive assessed 08/26/23 09/08/23 14:08 Const Other: Sitting in wheelchair along with her son General: cooperative, comfortable and no acute distress Orientation/consciousness: patient oriented x3 HENMT Head: Yes normocephalic Eyes General: appearance normal, both eyes and all related structures Neck Neck: Yes supple Resp Effort & Inspection: normal respiratory effort, no cough and no stridor Cardio Rhythm: regular rhythm Heart sounds: S1 normal heart sound present and S2 normal heart sound present Skin General skin exam: turgor normal Neuro General: patient oriented x3, tone normal and moves all extremities Assessment and Plan Assessment & Plan (1) Hospital discharge follow-up: Code(s): Z09 - Encounter for follow-up examination after completed treatment for conditions other than malignant neoplasm (2) Acute heart failure with preserved ejection fraction (HFpEF): Code(s): I50.31 - Acute diastolic (congestive) heart failure (3) Elevated brain natriuretic peptide (BNP) level: Code(s): R79.89 - Other specified abnormal findings of blood chemistry (4) Chronic anticoagulation: Code(s): 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 (5) Anemia: Code(s): D64.9 - Anemia, unspecified Qualifiers: Anemia type: iron deficiency Iron deficiency anemia type: unspecified iron deficiency Qualified Code(s): D50.9 - Iron deficiency anemia, unspecified (6) Ulcerative colitis: Code(s): K51.90 - Ulcerative colitis, unspecified, without complications Qualifiers: Ulcerative colitis location: unspecified ulcerative colitis location Digestive disease complication type: unspecified complication Qualified Code(s): K51.919 - Ulcerative colitis, unspecified with unspecified complications (7) Paroxysmal atrial fibrillation: Code(s): I48.0 - Paroxysmal atrial fibrillation (8) Morbid obesity due to excess calories: Code(s): E66.01 - Morbid (severe) obesity due to excess calories (9) Nephropathy: Code(s): N28.9 - Disorder of kidney and ureter, unspecified (10) Interstitial cystitis: Code(s): N30.10 - Interstitial cystitis (chronic) without hematuria Plan Patient is 72-year-old female came in today for hospital discharge follow-up dated 08/25/2023 [facility] , date of discharge 08/29/2023 Patient have a history of anemia with multiple transfusions in the past, history of atrial fibrillation currently on warfarin, history of aortic valve repl acement, interstitial cystitis, congestive heart failure with preserved ejection fraction, PTSD, osteoarthritis multiple joints, lipid disorder, generalized anxiety disorder with panic attacks, depression, chronic GERD, osteoporosis, asthma, hypertension. She presented with increasing edema as she stopped her diuretic because she was having diarrhea. There was a question of TIA as history also revealed some confusion and episode of eyes rolled back. CT scan of head was grossly negative for any acute evidence of bleeding. Her urine was abnormal she was started on Rocephin Chest x-ray showed mild Congestive heart failure BNP elevated consistent with congestive heart failure 12,000 Hemoglobin came back at 10 INR 1.9 TSH was normal GFR 53.2 with normal creatinine and electrolytes except potassium of 5.2 Magnesium was normal Liver enzymes normal Urine drug screen negative Patient was admitted for treatment EKG showed sinus bradycardia with PACs and bifascicular block Had EGD in hospital showed normal upper endoscopy protein pump inhibitors were continued Urine cultures showed E coli sensitive to ceftriaxone Patient was discharged on Ceftin 500 mg b.i.d. for 6 more days Potassium improved while in the hospital BMP need to be followed Dr. Cunningham performed the EGD Home PT was ordered by [facility] Biopsy report showed Stomach, antrum, biopsy: Antral-type mucosa with moderate chronic inactive inflammation and intestinal metaplasia; negative for dysplasia; no Helicobacter organisms seen She has already discussed that with Dr. Cunningham She has appointment coming up with [facility] September 28 And is in process of transferring her cardiology care to [facility] and has appointment with them on October 19 She has not started physical therapy, as her son says the bill from previous physical therapies were too high for them to address. She will be going in for eye surgery in September and for that reason she will return 21 of September for preop visit Meanwhile she is to repeat BNP and electrolytes today Orders: Orders Basic Metabolic Panel Today I50.31 - Acute diastolic (congestive) heart failure, R79.89 - Other specified abnormal findings of blood chemistry B Type Natriuretic Peptide Today I50.31 - Acute diastolic (congestive) heart failure, R79.89 - Other specified abnormal findings of blood chemistry Coding Level of Care Code Est Pt Level 5 (73586) Diagnoses Hospital discharge follow-up Z09 Acute heart failure with preserved ejection fraction (HFpEF) I50.31 Elevated brain natriuretic peptide (BNP) level R79.89 Chronic anticoagulation Z79.01 Iron deficiency anemia, unspecified iron deficiency anemia type D50.9 Anemia type: iron deficiency Iron deficiency anemia type: unspecified iron deficiency Ulcerative colitis with complication, unspecified location K51.919 Ulcerative colitis location: unspecified ulcerative colitis location Digestive disease complication type: unspecified complication Paroxysmal atrial fibrillation I48.0 Morbid obesity due to excess calories E66.01 Nephropathy N28.9 Interstitial cystitis N30.10 Time Spent (min) 45 Comment [id number] patient and her son reviewing ER notes hospital discharge notes, charting
[2023-09-08 14:09] VITALS: BP 124/70; PULSE 58; O2SAT 94; BMI 39.6
== END 2023-09-08 15:28 | disposition home or self-care (01) ==
PROVIDERS: PCP Internal Medicine; Visit Provider Internal Medicine
DX: Z09 Encounter for follow-up examination after completed treatment for conditions other than malignant neoplasm (principal); I50.31 Acute diastolic (congestive) heart failure; R79.89 Other specified abnormal findings of blood chemistry; Z79.01 Long term (current) use of anticoagulants; D50.9 Iron deficiency anemia, unspecified; K51.919 Ulcerative colitis, unspecified with unspecified complications; I48.0 Paroxysmal atrial fibrillation; E66.01 Morbid (severe) obesity due to excess calories; N28.9 Disorder of kidney and ureter, unspecified; N30.10 Interstitial cystitis (chronic) without hematuria
CPT/HCPCS: 99215

== ENCOUNTER 2023-09-08 14:40 | Outpatient (REF) | payer MEDICARE, OTHER, SELFPAY ==
[2023-09-08 16:52] LABS: Anion Gap 13 (12-20); Blood Urea Nitrogen 21 mg/dL (9-16); Calcium 9.2 mg/dL (8.4-10.2); Carbon Dioxide 27 mmol/L (22-29); Chloride 99 mmol/L (96-108); Estimated Glomerular Filt Rate > 60; Glucose Random 105 mg/dL (60-115); Potassium 4.6 mmol/L (3.3-5.1); Sodium 134 mmol/L (135-145)
[2023-09-08 17:05] LABS: B Type Natriuretic Peptide 417 pg/mL (<100)
== END 2023-09-08 14:41 | disposition home or self-care (01) ==
LOC: HO.HMGCLDS 14:40
PROVIDERS: PCP Internal Medicine; Visit Provider Internal Medicine
DX: I11.0 Hypertensive heart disease with heart failure (principal); I50.31 Acute diastolic (congestive) heart failure; R79.89 Other specified abnormal findings of blood chemistry
CPT/HCPCS: 36415; 80048; 83880

== ENCOUNTER 2023-09-22 09:12 | Outpatient (REF) | payer MEDICARE, OTHER, SELFPAY ==
[2023-09-22 09:37] LABS: Bacteria Urine None Seen (None Seen); Hyaline Casts Urine 0-2 /LPF (0-2); RBC Urine >20 /HPF (0-2); Squamous Epithelial Cell Urine 0-2 /HPF (0-2)
[2023-09-22 09:43] LABS: Appearance Urine Cloudy; Color Urine Orange; Glucose Urine UA Negative (Negative); Leukocyte Esterase Urine Moderate (2+) (Negative); Nitrite Urine Negative (Negative); UMIC TRIGGER UA YES; Urine Blood Large (3+) (Negative); Urine Ketones Negative (Negative); Urine Protein 30 (1+) mg/dL (Neg-Trace)
== END 2023-09-22 09:13 | disposition home or self-care (01) ==
LOC: HO.LNP 09:12
PROVIDERS: Visit Provider Nurse Practitioner Family
DX: N39.0 Urinary tract infection, site not specified (principal); R35.0 Frequency of micturition; R31.0 Gross hematuria
CPT/HCPCS: 81001; 87086

== ENCOUNTER 2023-09-22 12:42 | Outpatient (AMB) | payer MEDICARE, MEDICAID, SELFPAY ==
[2023-09-22 12:44] VITALS: BP 126/74; PULSE 60; O2SAT 95; BMI 39.4
--- NOTE | 2023-09-22 12:44 | MHC.PC.OV ---
Vital Signs 09/22/23 12:44 Height 5 ft Weight 202 lb BMI 39.4 BP 126/74 Blood Pressure Location Rt brachial Position Sitting Pulse 60 Pulse Source Pulse Oximeter Pulse Oximetry (%) 95 Oxygen Delivery Method Room Air Intake Visit Reasons: Pre op Receiving Associate: Present Accompanied by: Son ([place]) Allergies adhesive [ADHESIVE] Allergy (Unknown, Verified 09/22/23 12:44) LOCAL REACTION melatonin Allergy (Verified 09/22/23 12:44) PYSCHOSIS blue dye Adverse Reaction (Verified 09/22/23 12:44) Diarrhea Medication List - Last Reconciled 09/22/23 by Negrita Bains MD albuterol sulfate 1 vial inhalation Q4H PRN albuterol sulfate 90 mcg/actuation (Ventolin HFA) 2 puffs inhalation Q4H PRN apixaban (Eliquis) 5 mg PO BID ascorbic acid (vitamin C) 1 g PO DAILY 90 days biotin 2,500 mcg PO DAILY dexlansoprazole 30 mg PO DAILY@1900 dextran 70-hypromellose (PF) 0.1-0.3 % (Artificial Tears (PF)) 1 drp ophthalmic (eye) Q4H PRN doxepin 1 cap PO BEDTIME ergocalciferol (vitamin D2) 1,250 mcg PO WE escitalopram oxalate 1 tab PO DAILY escitalopram oxalate (Lexapro) 20 mg PO DAILY estradiol (Yuvafem) 10 mcg vaginal 2XW 28 days ferrous sulfate (Feosol) 325 mg PO BEDTIME fluticasone furoate-vilanterol 100-25 mcg/dose (Breo Ellipta) 1 ea inhalation DAILY PRN gabapentin 300 mg PO BID Lactobacillus acidophilus (Acidophilus capsule) 1 cap PO BID lorazepam 1 mg PO DAILY@1800 losartan (Cozaar) 25 mg PO DAILY magnesium 250 mg PO DAILY methenamine hippurate 1 g PO DAILY metoprolol tartrate (Lopressor) 100 mg PO BID omega 3-ucy-aso-fish oil 100-160-1,000 mg (Fish Oil) caps PO polyethylene glycol 3350 17 grams PO BID PRN potassium chloride ER (K-Tab) 10 mEq PO DAILY simvastatin (Zocor) 40 mg PO BEDTIME solifenacin (Vesicare) 10 mg PO DAILY 90 days torsemide 2 tabs PO DAILY vibegron (Gemtesa) 75 mg PO DAILY 90 days vit C,K-Pw-jbgzi-lutein-zeaxan 250-90-40-1 mg (PreserVision AREDS-2) 1 tab PO BID vitamin B complex 1 tab PO DAILY Tobacco use date assessed: 09/08/23 Fall risk assessment: 1 Fall in past year Last assessed Fall Risk: 09/08/23 Dental Screening Dental Screen Date: 09/08/23 Did you have a dental visit in the last 12 months?: Yes Did you have a dental problem in the last 6 months where you did not have access to dental care?: No Was dental information given to patient?: Patient has dentist HPI Pre op HPI Details Preop cataract surgery visit [facility] Left eye on 10/07/2023, and right eye 11/02/2023 Patient is in her usual state of health, labs done recently reviewed Her hemoglobin has improved 10.4-11.2 Sodium has improved to 134 And BNP has improved from 1214-417 She is supposed to be taking diuretic but she has not taken it for past 2 days She tells me that she was going out to eat and she did not wanted to go to bathroom. We talked about the importance of diuretic for her cardiac health. 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 EKG done today shows no new changes compared to EKG done early this month when she was in emergency room and was evaluated by director of recruiting then Patient have left axis deviation with right bundle branch block Patient is stable for cataract surgery [facility] Medical History CHF exacerbation History of stroke Abnormal colonoscopy (~04/03/22) Wheezing Anemia Urinary incontinence Right carpal tunnel syndrome Post cardiotomy syndrome PTSD (post-traumatic stress disorder) Osteoarthritis, hip, bilateral Interstitial cystitis Lipid disorder Insomnia Generalized anxiety disorder with panic attacks Major depression, recurrent History of ulcerative colitis Chronic GERD Diastolic congestive heart failure Paroxysmal atrial fibrillation Age related osteoporosis Asthma, moderate persistent Anticoagulant long-term use Iron deficiency anemia Establishing care with new doctor, encounter for Hypertension, essential Surgical History Hx of tonsillectomy Hx of colonoscopy Hx of rotator cuff surgery History of arthroplasty of both knees Hx of hysterectomy Status post mitral valve replacement Status post aortic valve replacement History of kyphoplasty History of artificial heart valve Family History Daughter Mental health disorder Substance use disorder Father Emphysema lung Mother Heart disease Stroke Pacemaker Arthritis Family/Other Colon cancer Sister Crohn's disease Social History Household Members: Children Household Members Other:: son Housing: Apartment Are you a primary acute care physical therapist to a significant other at home: No Do you presently have visiting nurse or other home services: No Alcohol intake: never Patient Tobacco Use Status: Former Tobacco user Quit Date: 30 yrs ago e-Cigarette/Vaping Use: Never Used Substance Use Type: Marijuana Advance Directives Date on File: 03/17/22 service: No Current occupational status: retired Cognitive needs: No Hearing needs: No Vision needs: Yes Questionnaire Thrive Questionnaire Date Thrive assessed: 08/26/23 GUANACO-7 AMB Questionnaire GUANACO-7 Date GUANACO - 7 assessed: 10/30/21 Source: Developed by Drs. Marco Antonio Diaz, Janeth Streeter, Alec Gayle and colleagues, with an educational lizett from [employer]. Review of Systems Const Denies chills and Denies fever(s) ENT Denies epistaxis and Denies nasal discharge Card Denies chest pain Resp Denies chest congestion, Denies cough and Denies hemoptysis GI Denies nausea Skin/Breast Denies rash Neuro Reports no additional complaints Psych Reports no additional complaints Endo Reports no additional complaints Physical exam (Primary Care) Vital Signs: Last Vital Signs Pulse 60 09/22/23 12:44 BP 126/74 09/22/23 12:44 Pulse Ox 95 09/22/23 12:44 Oxygen Delivery Method Room Air 09/22/23 12:44 BMI result Body Mass Index 39.4 Tobacco/Smoking Status: Tobacco use Status Tobacco use date assessed 09/08/23 09/22/23 12:45 Patient Tobacco Use Status Former Tobacco user 09/22/23 12:45 e-Cigarette/Vaping Use Never Used 09/22/23 12:45 Thrive Assessment: Date of Thrive Assessment Date Thrive assessed 08/26/23 09/22/23 12:45 Const Other: Sitting in wheelchair along with her son General: cooperative, comfortable and no acute distress Orientation/consciousness: patient oriented x3 HENMT Head: Yes normocephalic Eyes General: appearance normal, both eyes and all related structures Neck Neck: Yes supple Resp Effort & Inspection: normal respiratory effort, no cough and no stridor Cardio Other: Rhythm: regular rhythm Heart sounds: S1 normal heart sound present and S2 normal heart sound present Skin General skin exam: turgor normal Neuro General: patient oriented x3, tone normal and moves all extremities Assessment and Plan Assessment & Plan (1) Pre-op evaluation: Code(s): Z01.818 - Encounter for other preprocedural examination (2) Cataract, bilateral: Code(s): H26.9 - Unspecified cataract Qualifiers: Age-related cataract type: other Cataract type: age-related Qualified Code(s): H25.89 - Other age-related cataract (3) Recurrent UTI: Code(s): N39.0 - Urinary tract infection, site not specified (4) Interstitial cystitis: Code(s): N30.10 - Interstitial cystitis (chronic) without hematuria (5) Paroxysmal atrial fibrillation: Code(s): I48.0 - Paroxysmal atrial fibrillation (6) Cardiomyopathy: Code(s): I42.9 - Cardiomyopathy, unspecified Qualifiers: Cardiomyopathy type: unspecified Qualified Code(s): I42.9 - Cardiomyopathy, unspecified (7) Chronic hyponatremia: Code(s): E87.1 - Hypo-osmolality and hyponatremia Plan Preop cataract surgery visit [facility] Left eye on 10/07/2023, and right eye 11/02/2023 Patient is in her usual state of health, labs done recently reviewed Her hemoglobin has improved 10.4-11.2 Sodium has improved to 134 And BNP has improved from 1214-417 She is supposed to be taking diuretic but she has not taken it for past 2 days She tells me that she was going out to eat and she did not wanted to go to bathroom. We talked about the importance of diuretic for her cardiac health. 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 EKG done today shows no new changes compared to EKG done early this month when she was in emergency room and was evaluated by director of recruiting then Patient have left axis deviation with right bundle branch block Urine test done recently shows signs of infection it was ordered through her urologist I have sent antibiotic for that Patient is stable for cataract surgery 41 minute spent in care of this patient Discussing dyoc-yz-jaio with her son, patients concerns Performing EKG and reviewing, charting, coordination of care Medications: New nitrofurantoin monohyd/m-cryst 100 mg (Macrobid) must administer with a meal/food 100 mg PO Q12H 14 caps 0RF 7 days Coding Level of Care Code Est Pt Level 5 (85119) Diagnoses Pre-op evaluation Z01.818 Other age-related cataract of both eyes H25.89 Age-related cataract type: other Cataract type: age-related Recurrent UTI N39.0 Interstitial cystitis N30.10 Paroxysmal atrial fibrillation I48.0 Cardiomyopathy, unspecified type I42.9 Cardiomyopathy type: unspecified Chronic hyponatremia E87.1
== END 2023-09-22 13:31 | disposition home or self-care (01) ==
PROVIDERS: PCP Internal Medicine; Visit Provider Internal Medicine
DX: I48.0 Paroxysmal atrial fibrillation (principal); I42.9 Cardiomyopathy, unspecified; Z01.818 Encounter for other preprocedural examination; H25.89 Other age-related cataract; N39.0 Urinary tract infection, site not specified; N30.10 Interstitial cystitis (chronic) without hematuria; E87.1 Hypo-osmolality and hyponatremia
CPT/HCPCS: 93000; 99215

== ENCOUNTER 2023-10-06 15:31 | Outpatient (REF) | payer MEDICARE, OTHER, SELFPAY ==
[2023-10-06 16:05] LABS: Hematocrit 25.5 % (37.0-47.0); Hemoglobin 7.9 g/dl (12.0-16.0); Mean Corpuscular Hemoglobin 28.3 pg (27.0-33.0); Mean Corpuscular Volume 91.4 fL (80.0-98.0); Mean Platelet Volume 9.3 fL (9.4-12.3); Platelet Count 208 X10*3/uL (160-400); Red Blood Count 2.79 X10*6/uL (4.20-5.50); Red Cell Distribution Width 16.6 % (11.0-16.0)
[2023-10-06 16:46] LABS: Ferritin 54 ng/mL (10-250)
== END 2023-10-06 15:32 | disposition home or self-care (01) ==
LOC: HO.LAB 15:31
PROVIDERS: PCP Internal Medicine; Visit Provider Internal Medicine
DX: D64.9 Anemia, unspecified (principal)
CPT/HCPCS: 36415; 82728; 85027

== ENCOUNTER 2023-10-12 13:59 | Outpatient (AMB) | payer MEDICARE, SELFPAY ==
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
== END 2023-10-12 14:51 | disposition home or self-care (01) ==
LOC: HO.HUSH 13:59
PROVIDERS: PCP Internal Medicine; Visit Provider Nurse Practitioner Family
DX: R32 Unspecified urinary incontinence (principal); N39.0 Urinary tract infection, site not specified; R35.0 Frequency of micturition; R31.0 Gross hematuria; N30.10 Interstitial cystitis (chronic) without hematuria
CPT/HCPCS: 99214; G2211

== ENCOUNTER → 2023-10-12 13:59 | Outpatient (BNVA) | payer MEDICARE, OTHER, SELFPAY | PROVIDERS: PCP Internal Medicine; Visit Provider Nurse Practitioner Family ==

== ENCOUNTER 2023-11-18 12:41 | Outpatient (REF) | payer MEDICARE, MEDICAID, SELFPAY ==
--- NOTE | ~2023-11-18 | MM_ITS ---
EXAMINATION: MM SCREENING DIGITAL BREAST TOMOSYNTHESIS, BILATERAL CLINICAL INFORMATION: Screening. Asymptomatic. COMPARISON: Mammography: There are no prior mammograms for comparison. TECHNIQUE: Digital breast tomosynthesis is performed in both the craniocaudal and mediolateral oblique views along with computer-aided detection (CAD). Synthesized 2D images are generated from the tomosynthesis. FINDINGS: There are scattered areas of fibroglandular density (ACR BI-RADS breast composition Category b). There are no significant masses, abnormal calcifications, or other abnormalities. MM/MM tomosynthesis screening BI IMPRESSION: No mammographic evidence of malignancy. ASSESSMENT: BI-RADS BI-RADS 1 - Negative RECOMMENDATION: Routine annual mammography screening. 1 year F/U This examination should not preclude the clinical evaluation of a suspicious palpable abnormality. This patient's information was entered into a reminder system with a target due date for their next mammogram.
== END 2023-11-18 12:42 | disposition home or self-care (01) ==
LOC: HO.MAMMO 12:41
PROVIDERS: PCP Internal Medicine; Visit Provider Internal Medicine
DX: Z12.31 Encounter for screening mammogram for malignant neoplasm of breast (principal)
CPT/HCPCS: 77063; 77067

== ENCOUNTER → 2023-11-18 12:45 | Outpatient (BNV) | payer MEDICARE, MEDICAID, SELFPAY | PROVIDERS: PCP Internal Medicine; Visit Provider Radiology Diagnostic Radiology | DX: Z12.31 Encounter for screening mammogram for malignant neoplasm of breast (principal) | CPT/HCPCS: 77063; 77067 ==

== ENCOUNTER 2023-12-11 12:31 | Outpatient (REF) | payer MEDICARE, MEDICAID, SELFPAY ==
[2023-12-11 12:50] LABS: Appearance Urine Clear; Color Urine Yellow; Glucose Urine UA Negative (Negative); Leukocyte Esterase Urine Trace (Negative); Nitrite Urine Negative (Negative); UMIC TRIGGER UA YES; Urine Blood Negative (Negative); Urine Ketones Negative (Negative); Urine Protein Negative (Neg-Trace)
[2023-12-11 12:52] LABS: Bacteria Urine None Seen (None Seen); Hyaline Casts Urine 0-2 /LPF (0-2); RBC Urine 0-2 /HPF (0-2)
== END 2023-12-11 12:32 | disposition home or self-care (01) ==
LOC: HO.LNP 12:31
PROVIDERS: Visit Provider Nurse Practitioner Family
DX: R35.0 Frequency of micturition (principal); R31.0 Gross hematuria; N39.0 Urinary tract infection, site not specified; R32 Unspecified urinary incontinence
CPT/HCPCS: 81001; 87086

== ENCOUNTER 2023-12-14 16:23 | Emergency (ER) | payer MEDICARE, MEDICAID, SELFPAY ==
[2023-12-14] VITALS (9 sets, daily range): BP systolic 141–217; BP diastolic 52–74; PULSE 51–61; RESP 12–22; TEMP 36.2–36.9; O2SAT 85–96; BMI 37.5
--- NOTE | ~2023-12-14 | CT_ITS ---
EXAMINATION: CT ANGIOGRAM HEAD CT ANGIOGRAM NECK CLINICAL INFORMATION: Speech difficulties. COMPARISON: CT head from 12/14/2023. CTA Head and Neck from 04/02/2022. TECHNIQUE: Initial noncontrast drawer in stitch bonding machine imaging of the head and neck was performed. Comparison is made with noncontrast head CT from earlier today. Test bolus sequences followed by intravenous administration 70 mL of Omnipaque 350. Helical imaging was performed in the axial plane from the aortic arch to the skull vertex. Delayed postcontrast imaging of the head was also performed. The data was processed at the orthopaedic technologist's workstation for generation of MIP sequences. Angled MIPs and volume rendered reformatted images were also generated at an offline 3D workstation. Stenoses are assessed in accordance with NASCET criteria unless otherwise indicated. This CT examination was performed using dose optimization techniques as appropriate, variously including the following: *Automated exposure control. *Adjustment of mA and/or kV according to patient size (this includes techniques or standardized protocols for targeted exams where dose is matched to indication/reason for exam; i.e. extremities or head). *Use of iterative reconstruction technique. DLP: 1422 mGy-cm FINDINGS: CT Head: There is no evidence of acute intracranial hemorrhage or edematous territorial infarction. Ravi-white matter differentiation is preserved. Scattered and partially confluent hypoattenuation in the periventricular and deep white matter are consistent with moderate microangiopathy. Proportional prominence of the ventricles and sulcal spaces without evidence of obstructive hydrocephalus. No abnormal mass effect or midline shift. No extra-axial fluid collections. No pathologic intra-axial enhancement or regional oligemia. No acute soft tissue or osseous abnormalities. Mild mucosal thickening of the paranasal sinuses. Changes of prior left-sided canal wall down mastoidectomy. The right-sided mastoid air cells are clear. Bilateral lens extractions. CT Neck: The thyroid gland and remaining cervical soft tissues are within normal limits. Mild degenerative interlobular cc of C4 on C5 and C7 on T1. Facet and uncovertebral joint arthropathy leads to osseous encroachment on the neural foramina from C2-T1. CT Upper Chest: Changes of prior median sternotomy. The visualized lung apices and upper mediastinum are within normal limits. Neck CTA: Aortic Arch: Normal contour and caliber with moderate calcific atherosclerotic disease. Classic 3 vessel branching pattern of the aortic arch. Great Vessel Origins: No significant stenosis of the branch origins. Right Common Carotid Artery: No focal stenosis or occlusion. Cervical Right Internal Carotid Artery: Calcific atherosclerotic disease of the carotid bulb and proximal internal carotid artery causing less than 50% stenosis. Left Common Carotid Artery: No focal stenosis or occlusion. Cervical Left Internal Carotid Artery: Mild calcific atherosclerotic disease of the carotid bulb and proximal internal carotid artery without flow-limiting stenosis. Cervical Right Vertebral Artery: Mildly dominant. No focal stenosis or occlusion. Cervical Left Vertebral Artery: No focal stenosis or occlusion. Brain CTA: Intracranial Internal Carotid Arteries: Calcific atherosclerotic disease of the intracranial internal carotid arteries without occlusion or flow-limiting stenosis. Stable appearance of a 1.1 cm irregular saccular aneurysm projecting inferiorly from the right carotid terminus. The right posterior communicating artery arises from this aneurysm. Right Anterior Cerebral Artery: Normal A1 segment. Normal opacification of the distal MAXIMILIAN segments. Left Anterior Cerebral Artery: The A1 segment is diminutive. Normal opacification of the distal MAXIMILIAN segments. Anterior Communicating Artery: Azygous continuation. Stable appearance of a 0.1 cm excrescence projecting inferiorly into the left of the anterior communicating artery. Right Middle Cerebral Artery: Normal M1 segment of the MCA without focal stenosis or occlusion. Stable appearance of a posteriorly-inferiorly projecting 0.2 cm aneurysm at the M1-M2 junction. Normal arborization of the distal segments. Left Middle Cerebral Artery: Normal M1 segment of the MCA without focal stenosis or occlusion. Normal arborization of the distal segments. Right Vertebral Artery: Normal V4 segment. Normal opacification of the proximal segments of the posterior inferior cerebellar artery. Left Vertebral Artery: Normal V4 segment. Normal opacification of the proximal segments of the posterior inferior cerebellar artery. Basilar Artery: Normal without focal stenosis or occlusion. Normal appearance of the proximal superior cerebellar arteries. Stable 0.1 cm excrescence projecting superiorly from the basilar tip. Right Posterior Cerebral Artery: Normal P1 segment. Normal posterior communicating artery. Normal opacification of the distal [address] STENOGRAPHER segments. Left Posterior Cerebral Artery: The P1 segment is diminutive. origin of the [address] STENOGRAPHER with robust opacification of the posterior communicating artery. Normal opacification of the distal [address] STENOGRAPHER segments. Normal opacification of the superior sagittal, straight, transverse, and sigmoid sinuses. CT/CT angio head neck stroke IMPRESSION: 1. No evidence of acute intracranial hemorrhage or edematous territorial infarction. Moderate underlying microangiopathy and generalized cerebral volume loss. 2. CTA of the head and neck without proximal occlusion or flow-limiting stenosis. 3. 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 The right posterior communicating artery arises from this aneurysm. 4. Stable appearance of a 0.2 cm aneurysm projecting superiorly from the M1-M2 junction of the right MCA. 5. Similar appearance of 0.1 cm excrescences projecting superiorly from the basilar tip and inferiorly from the anterior communicating artery potentially representing additional tiny aneurysms versus infundibuli. This critical result was discussed with Dr. Simpson at 17:50 on 12/14/2023 and it was ascertained that the content and urgency of the report was understood at the time of direct communication.
--- NOTE | ~2023-12-14 | XR_ITS ---
EXAMINATION: XR CHEST CLINICAL INFORMATION: Low O2 saturation. COMPARISON: Chest x-ray August 25, 2023 TECHNIQUE: Frontal portable view of the chest was obtained. 0 hours FINDINGS: Status post median sternotomy for cardiac valve repair. No acute abnormality. No pulmonary vascular congestion. Lungs are normally aerated. No significant pleural effusion. Chronic slight blunting of the right costophrenic angle unchanged since prior studies. Orthopedic anchor in the right humeral head. XR/XR chest 1V IMPRESSION: No acute abnormality of chest.
--- NOTE | ~2023-12-14 | CT_ITS ---
EXAMINATION: CT HEAD WITHOUT CONTRAST (STROKE PROTOCOL) CLINICAL INFORMATION: Stroke protocol. COMPARISON: CT head August 25, 2023 TECHNIQUE: Contiguous axial imaging was performed from the skull base to vertex without intravenous administration of contrast. Coronal and sagittal reformatted images are performed at the CT scanner. [This CT examination was performed using dose optimization techniques as appropriate, variously including the following: *Automated exposure control *Adjustment of mA and/or kV according to patient size (this includes techniques or standardized protocols for targeted exams where dose is matched to indication/reason for exam; i.e. extremities or head) *Use of iterative reconstruction technique] DLP: 669 mGy-cm. FINDINGS: There is no evidence of acute intracranial hemorrhage or territorial infarction. No abnormal mass-effect or midline shift is seen. Ravi to white matter differentiation is well preserved. No extra-axial fluid collections are identified. There is generalized global volume loss. There is moderate prominence of the ventricles and the sulci . There is mild to moderate hypodensity of the periventricular white matter due to chronic small vessel ischemic disease. There are vascular calcifications of the internal carotid arteries bilaterally. Status post left mastoidectomy. No acute osseous abnormality. CT/CT head for stroke IMPRESSION: 1. No acute intracranial pathology. 2. There is mild to moderate hypodensity of the periventricular white matter due to chronic small vessel ischemic disease. This critical result was discussed with Dr. Simpson on 12/14/2023, 4:56 PM and it was ascertained that the content and urgency of the report was understood at the time of direct communication.
--- NOTE | 2023-12-14 16:33 | PC.NURSE ---
Unable to obtained BP in triage.
--- NOTE | 2023-12-14 16:37 | ECG_ITS ---
Test Reason : STROKE Blood Pressure : / mmHG Vent. Rate : 052 BPM Atrial Rate : 052 BPM P-R Int : 168 ms QRS Dur : 160 ms QT Int : 534 ms P-R-T Axes : 069 -61 -20 degrees QTc Int : 496 ms Sinus bradycardia Right bundle branch block Left anterior fascicular block Bifascicular block Abnormal ECG When compared with ECG of 25-AUG-2023 14:03, Premature atrial complexes are no longer Present Referred By: Maurilio Pendleton Electronically Signed By:LEEANNE LIU
[2023-12-14 16:39] LABS: Prothrombin Time Whole Bld POC 10.8 sec (11.1-13.5); ~PT, ~INR - Anti Coag Clinic 0.9 (0.9-1.1)
[2023-12-14 16:40] LABS: Glucose, Whole Blood 96 mg/dL (60-115)
[2023-12-14 16:45] LABS: MANUAL DIFF FLAG NO
[2023-12-14 16:52] LABS: Basophils Absolute Auto 0.1 X10*3/uL (0.0-0.2); Basophils Percent Auto 0.8 % (0-2); Eosinophils Absolute Auto 0.2 X10*3/uL (0.0-0.4); Eosinophils Percent Auto 2.8 % (0-4); Hematocrit 40.6 % (37.0-47.0); Hemoglobin 13.3 g/dl (12.0-16.0); Imm Gran Abs Auto 0.02 X10*3/uL (0.00-0.03); Imm Gran Pct Auto 0.2 % (0.0-0.4); Lymphocytes Absolute Auto 1.8 X10*3/uL (1.2-4.9); Lymphocytes Percent Auto 21.1 % (20-40); Mean Corpuscular HGB Conc 32.8 g/dl (31.0-35.0); Mean Corpuscular Hemoglobin 27.7 pg (27.0-33.0); Mean Corpuscular Volume 84.4 fL (80.0-98.0); Mean Platelet Volume 10.4 fL (9.4-12.3); Monocytes Absolute Auto 0.6 X10*3/uL (0.1-1.2); Monocytes Percent Auto 6.5 % (2-11); Neutrophils Absolute Auto 5.9 x10*3/uL (2.0-8.3); Neutrophils Percent Auto 68.6 % (45-73); Platelet Count 255 X10*3/uL (160-400); Red Blood Count 4.81 X10*6/uL (4.20-5.50); Red Cell Distribution Width 12.7 % (11.0-16.0); White Blood Count 8.6 X10*3/uL (4.8-10.8)
[2023-12-14 17:00] LABS: Prothrombin Time 12.3 SEC (11.1-13.3)
[2023-12-14] MEDS: iohexoL 350 MG/ML 100 ML INFUS..BTL 70 ML IV (17:01)
[2023-12-14 17:03] LABS: Partial Thromboplastin Time 33.2 SEC (26.0-36.8)
--- NOTE | 2023-12-14 17:07 | ED_ITS ---
HPI - Neuro Symptoms/Deficit General Chief Complaint: Stroke Stated Complaint: stroke ? Time Seen by Provider: 12/14/23 16:36 Source: family Mode of arrival: EMS Limitations: no limitations History of Present Illness ED Provider: cory HERNANDEZ Narrative: Patient is 72 years old with history of endocarditis secondary to dental work status post bio prosthetic aortic and mitral valve replacement in 02/09 followed by a right ventricular rupture anticoagulated with history of paroxysmal AFib, hypertension, hyperlipidemia ulcerative colitis asthma and depression not on Coumadin for last few weeks secondary to hematuria been having headache for last few days got worse in last 2 hours and an hour prior to arrival at 15:30 son noticed that patient has difficulty in comprehension with slow speech on arrival patient been speaking normally noticed fear comprehension no difficulty in finding words no focal deficits patient has had similar episode 1 week ago but did not go to the hospital lasted fall for few hours absence she come down her blood pressure was elevated also that time Related Data Home Medications ?Medication ?Instructions ?Recorded ?Confirmed escitalopram oxalate 20 mg tablet 20 mg PO DAILY 10/30/21 10/13/23 (Lexapro) losartan 25 mg tablet (Cozaar) 25 mg PO DAILY 10/30/21 10/13/23 metoprolol tartrate 100 mg tablet 100 mg PO BID 10/30/21 10/13/23 (Lopressor) potassium chloride 10 mEq 10 meq PO DAILY 10/30/21 10/13/23 tablet,extended release (K-Tab) doxepin 25 mg capsule 1 cap PO BEDTIME 11/14/21 10/13/23 lorazepam 1 mg tablet 1 mg PO DAILY@1800 Anxiety 11/14/21 10/13/23 albuterol sulfate 2.5 mg/3 mL 1 vial inhalation Q4H PRN wheezing 03/17/22 10/13/23 (0.083 %) solution for nebulization biotin 2,500 mcg capsule 2,500 mcg PO DAILY 03/17/22 10/13/23 ergocalciferol (vitamin D2) 1,250 1,250 mcg PO WE 03/17/22 10/13/23 mcg (50,000 unit) capsule magnesium 250 mg tablet 250 mg PO DAILY 03/17/22 10/13/23 vitamin B complex 1 tab PO DAILY 03/17/22 10/13/23 torsemide 20 mg tablet 2 tab PO DAILY 07/28/22 10/13/23 albuterol sulfate 90 mcg/actuation 2 puff inhalation Q4H PRN wheezing 10/16/22 10/13/23 aerosol inhaler (Ventolin HFA) dexlansoprazole 30 mg 30 mg PO DAILY@1900 05/29/23 10/13/23 capsule,biphase delayed release gabapentin 300 mg capsule 300 mg PO BID 05/29/23 10/13/23 Lactobacillus acidophilus 1 cap PO BID 08/25/23 10/13/23 (Acidophilus capsule) dextran 70-hypromellose (PF) 0.1 1 drp ophthalmic (eye) Q4H PRN Dry 08/25/23 10/13/23 %-0.3 % eye drops in a dropperette Eye(S) (Artificial Tears (PF)) ferrous sulfate 325 mg (65 mg 325 mg PO BEDTIME 08/25/23 10/13/23 iron) tablet (Feosol) fluticasone furoate 100 1 ea inhalation DAILY PRN Wheezing 08/25/23 10/13/23 mcg-vilanterol 25 mcg/dose inhalation powder (Breo Ellipta) polyethylene glycol 3350 17 gram 17 g PO BID PRN Constipation 08/25/23 10/13/23 oral powder packet omega [id number] oil 100 100 cap PO DAILY 09/08/23 10/13/23 mg-160 mg-1,000 mg capsule (Fish Oil) vit C 250 mg-vit E 90 mg-zinc 40 1 tab PO BID 09/08/23 10/13/23 mg-copper 1 [id number] capsule (PreserVision AREDS-2) Previous Rx's ?Medication ?Instructions ?Recorded vibegron 75 mg tablet (Gemtesa) 75 mg PO DAILY 90 days #90 tabs 07/30/23 methenamine hippurate 1 gram tablet 1 g PO DAILY #90 tabs 08/24/23 estradiol 10 mcg vaginal tablet 10 mcg vaginal 2XW 28 days #8 tabs 08/25/23 (Yuvafem) amoxicillin 500 mg-potassium 1 tab PO Q8H 10 days #30 tabs 10/12/23 clavulanate 125 mg tablet (Augmentin) doxycycline hyclate 100 mg tablet 100 mg PO BID 14 days #28 tabs 10/12/23 fluconazole 150 mg tablet 150 mg PO Q3D 2 doses #2 tabs 10/12/23 solifenacin 10 mg tablet (Vesicare) 10 mg PO DAILY 90 days #90 tabs 11/18/23 ascorbic acid (vitamin C) 1,000 mg 1 g PO DAILY 90 days #90 tabs 12/02/23 tablet simvastatin 40 mg tablet (Zocor) 40 mg PO BEDTIME #90 tabs 12/02/23 Allergies Allergy/AdvReac Type Severity Reaction Status Date / Time adhesive [ADHESIVE] Allergy Unknown LOCAL Verified 12/14/23 16:32 REACTION melatonin Allergy PYSCHOSIS Verified 12/14/23 16:32 blue dye AdvReac Diarrhea Verified 12/14/23 16:32 Review of Systems 2 Review of Systems: Yes all other systems are reviewed and are negative [facility] Past Medical History Medical History CHF exacerbation History of stroke Abnormal colonoscopy (~04/03/22) Wheezing Anemia Urinary incontinence Right carpal tunnel syndrome Post cardiotomy syndrome PTSD (post-traumatic stress disorder) Osteoarthritis, hip, bilateral Interstitial cystitis Lipid disorder Insomnia Generalized anxiety disorder with panic attacks Major depression, recurrent History of ulcerative colitis Chronic GERD Diastolic congestive heart failure Paroxysmal atrial fibrillation Age related osteoporosis Asthma, moderate persistent Anticoagulant long-term use Iron deficiency anemia Establishing care with new doctor, encounter for Hypertension, essential Surgical History Hx of tonsillectomy Hx of colonoscopy Hx of rotator cuff surgery History of arthroplasty of both knees Hx of hysterectomy Status post mitral valve replacement Status post aortic valve replacement History of kyphoplasty History of artificial heart valve Family History Family History Daughter Mental health disorder Substance use disorder Father Emphysema lung Mother Heart disease Stroke Pacemaker Arthritis Family/Other Colon cancer Sister Crohn's disease Social History Social History Household Members: Children Household Members Other:: son Housing: Apartment Are you a primary skin care therapist to a significant other at home: No Do you presently have visiting nurse or other home services: No Alcohol intake: never Patient Tobacco Use Status: Former Tobacco user Smoked in Last 30 Days: No e-Cigarette/Vaping Use: Never Used Use of substances other than those prescribed or required for medical reasons: No Substance Use Type: Marijuana Advance Directives: Yes Advance Directives on File: Yes Advance Directives Date on File: 03/18/22 Do you have a plan to hurt others: No Plan service: No Current occupational status: retired Cognitive needs: No Hearing needs: No Vision needs: Yes Physical Exam 2 Vital Signs: Vital Signs: Last Vital Signs Temp 98.5 F 12/14/23 22:53 Pulse 60 12/14/23 22:53 Resp 18 12/14/23 22:53 BP 141/52 H 12/14/23 22:53 Pulse Ox 96 12/14/23 22:53 O2 Del Method Nasal Cannula 12/14/23 22:53 O2 Flow Rate 2 12/14/23 22:53 BMI result Body Mass Index 37.5 Appearance: Alert. Oriented X3. No acute distress. Eyes: PERRLA, No Nystagmus ENT: Pharynx normal. Oral Mucosa moist Neck: Normal inspection. Neck supple. CVS: Normal heart rate and rhythm. Pulses normal. Respiratory: No respiratory distress. Equal air entry bilateral, no wheezing/rales/rhonchi Abdomen: Soft and nontender. Bowel sounds are present, no mass palpable, no CVA tenderness Skin: Skin warm and dry. Normal skin color. Normal skin turgor. Extremities: No lower extremity edema. No calf tenderness Neuro: Oriented X 3. No motor deficit. No sensory deficit.No cerebellar signs , cranial nerves II-XII intact Medications Administered Discontinued Medications Generic Name Dose Route Start Last Admin Trade Name Freq PRN Reason Stop Dose Admin Furosemide 40 mg 12/14/23 21:41 12/14/23 21:54 Furosemide 40 Mg/4 Ml Vial IVPUSH 12/14/23 21:42 20 mg ONCE ONE Administration Protocol Hydralazine HCl 10 mg 12/14/23 18:31 12/14/23 19:02 Hydralazine Hcl 20 Mg/Ml Vial IVPUSH 12/14/23 18:32 10 mg ONCE ONE Administration Protocol Iohexol 70 ml 12/14/23 17:00 12/14/23 17:01 Iohexol 350 Mg/Ml 100 Ml Infus..Btl IV 12/14/23 17:01 70 ml ONCE ONE Administration Labetalol HCl 10 mg 12/14/23 16:38 12/14/23 17:23 Labetalol Hcl 100 Mg/20 Ml Vial IVPUSH 12/14/23 16:39 10 mg ONCE ONE Administration Labetalol HCl 10 mg 12/14/23 17:33 12/14/23 17:40 Labetalol Hcl 100 Mg/20 Ml Vial IVPUSH 12/14/23 17:34 10 mg ONCE ONE Administration Lorazepam 1 mg 12/14/23 18:31 12/14/23 19:04 Lorazepam 2 Mg/Ml Vial IVPUSH 12/14/23 18:32 1 mg ONCE ONE Administration Morphine Sulfate 4 mg 12/14/23 17:33 12/14/23 17:39 Morphine Sulfate 4 Mg/Ml Cartridge IVPUSH 12/14/23 17:34 4 mg ONCE ONE Administration Protocol Ondansetron HCl 4 mg 12/14/23 17:33 12/14/23 17:39 Ondansetron Hcl 4 Mg/2 Ml Vial IVPUSH 12/14/23 17:34 4 mg ONCE ONE Administration Medical Decision Making Medical Decision Making [facility] Narrative: Patient's accelerated hypertension with slow speech and headache questionable comprehensive aphasia CTA and CT head negative for acute patient has improved during stay in the ER after giving Ativan and blood pressure control after multiple medications not clear whether patient had TIAs/anxiety patient does not baby aspirin advised to continue her medication take torsemide as prescribed for CHF patient noted to be saturating 84% on ambulation without oxygen patient does have oxygen at home advised to use oxygen when ambulating chest x-ray negative for acute Differential Diagnosis Differential Diagnoses: The differential diagnosis associated with the presentation includes CVA/TIA/anxiety/accelerated hypertension Admission/Observation Consideration of admission/observation: Escalation of care including admission/observation considered Lab Data [facility] Lab Attestation statement: I reviewed the patient's lab results. 12/14/23 16:39 12/14/23 16:40 Labs: Lab Results 12/14/23 12/14/23 12/14/23 Range/Units 16:35 16:37 16:39 WBC 8.6 (4.8-10.8) X10*3/uL RBC 4.81 D (4.20-5.50) X10*6/uL Hgb 13.3 D (12.0-16.0) g/dl Hct 40.6 D (37.0-47.0) % MCV 84.4 (80.0-98.0) fL MCH 27.7 (27.0-33.0) pg MCHC 32.8 (31.0-35.0) g/dl RDW 12.7 (11.0-16.0) % Plt Count 255 (160-400) X10*3/uL MPV 10.4 (9.4-12.3) fL Immature Gran % (Auto) 0.2 (0.0-0.4) % Neut % (Auto) 68.6 (45-73) % Lymph % (Auto) 21.1 (20-40) % [place] % (Auto) 6.5 (2-11) % Eos % (Auto) 2.8 (0-4) % Baso % (Auto) 0.8 (0-2) % Lymph # (Auto) 1.8 (1.2-4.9) X10*3/uL [place] # (Auto) 0.6 (0.1-1.2) X10*3/uL Eos # (Auto) 0.2 (0.0-0.4) X10*3/uL Baso # (Auto) 0.1 (0.0-0.2) X10*3/uL Abs Immat Gran (auto) 0.02 (0.00-0.03) X10*3/uL Absolute Neuts (auto) 5.9 (2.0-8.3) x10*3/uL Absolute Nucleated RBC 0.000 (0.0-0.012) X10*3/uL Nucleated RBC % (auto) 0.0 (0.0-0.2) /100WBC PT 12.3 (11.1-13.3) SEC Whole Blood PT 10.8 L (11.1-13.5) sec INR 1.0 (0.9-1.1) Whole Blood INR 0.9 (0.9-1.1) APTT 33.2 D (26.0-36.8) SEC Sodium (135-145) mmol/L Potassium (3.3-5.1) mmol/L Chloride (96-108) mmol/L Carbon Dioxide (22-29) mmol/L Anion Gap (12-20) BUN (9-16) mg/dL Creatinine (0.5-1.4) mg/dL Estim Creat Clear Calc Estimated GFR POC Glucose 96 (60-115) mg/dL Random Glucose (60-115) mg/dL Calcium (8.4-10.2) mg/dL Troponin I High Sens (<3.5-17.0) ng/L Triglycerides (<150) mg/dL Cholesterol (<200) mg/dL LDL Cholesterol, Calc (<100) mg/dL HDL Cholesterol (>40) mg/dL 12/14/23 Range/Units 16:40 WBC (4.8-10.8) X10*3/uL RBC (4.20-5.50) X10*6/uL Hgb (12.0-16.0) g/dl Hct (37.0-47.0) % MCV (80.0-98.0) fL MCH (27.0-33.0) pg MCHC (31.0-35.0) g/dl RDW (11.0-16.0) % Plt Count (160-400) X10*3/uL MPV (9.4-12.3) fL Immature Gran % (Auto) (0.0-0.4) % Neut % (Auto) (45-73) % Lymph % (Auto) (20-40) % [place] % (Auto) (2-11) % Eos % (Auto) (0-4) % Baso % (Auto) (0-2) % Lymph # (Auto) (1.2-4.9) X10*3/uL [place] # (Auto) (0.1-1.2) X10*3/uL Eos # (Auto) (0.0-0.4) X10*3/uL Baso # (Auto) (0.0-0.2) X10*3/uL Abs Immat Gran (auto) (0.00-0.03) X10*3/uL Absolute Neuts (auto) (2.0-8.3) x10*3/uL Absolute Nucleated RBC (0.0-0.012) X10*3/uL Nucleated RBC % (auto) (0.0-0.2) /100WBC PT (11.1-13.3) SEC Whole Blood PT (11.1-13.5) sec INR (0.9-1.1) Whole Blood INR (0.9-1.1) APTT (26.0-36.8) SEC Sodium 133 L (135-145) mmol/L Potassium 5.1 (3.3-5.1) mmol/L Chloride 99 (96-108) mmol/L Carbon Dioxide 26 (22-29) mmol/L Anion Gap 13 (12-20) BUN 8 L (9-16) mg/dL Creatinine 0.85 (0.5-1.4) mg/dL Estim Creat Clear Calc 57.0 Estimated GFR > 60 POC Glucose (60-115) mg/dL Random Glucose 99 (60-115) mg/dL Calcium 9.6 (8.4-10.2) mg/dL Troponin I High Sens 3.8 (<3.5-17.0) ng/L Triglycerides 113 (<150) mg/dL Cholesterol 99 (<200) mg/dL LDL Cholesterol, Calc 37 (<100) mg/dL HDL Cholesterol 40 L (>40) mg/dL Independent Interpretation I performed an independent interpretation of an: EKG, Plain X-Ray and CT Scan Interpretation: Sinus bradycardia heart rate 52 beats per minute right bundle-branch block left anterior fascicular block no acute ST-T changes no acute ischemia Radiology Impression Discussion of test interpretation with radiology: I have reviewed the radiologist's reading. Critical Care Time Critical Care Time Critical Care Time: Yes Total Critical Care Time: 60 Attestation: The patient was critically ill with a high probability of imminent or life threatening deterioration. I spent greater than ?65??minutes of discontinuous time evaluating the patient,delivering critical care at the bedside, discussing and evaluating pertinent data with consultants. Critical care time does not include time spent performing separately billable procedures or teaching. Total time spent performing critical care was ?60??minutes. Discharge Plan Discharge Clinical Impression: Transient cerebral ischemia, Hypertension, uncontrolled Patient Disposition: Home, Self-Care Instructions: Transient Ischemic Attack (ED), Chronic Hypertension (ED) Additional Instructions: Your symptoms were likely from elevated blood pressure Take your torsemide daily as prescribed Continue rest of other medications Follow up with your PCP Continue baby aspirin daily Prescriptions: No Action methenamine hippurate 1 gram tablet 1 g PO DAILY Qty: 90 1RF Hold Instructions: Resume on 03/02/23. solifenacin [Vesicare] 10 mg tablet 10 mg PO DAILY 90 Days Qty: 90 4RF ascorbic acid (vitamin C) 1,000 mg tablet 1 g PO DAILY 90 Days Qty: 90 1RF simvastatin [Zocor] 40 mg tablet 40 mg PO BEDTIME Qty: 90 3RF doxepin 25 mg capsule 1 cap PO BEDTIME lorazepam 1 mg tablet 1 mg PO DAILY@1800 torsemide 20 mg tablet 2 tab PO DAILY albuterol sulfate 2.5 mg /3 mL (0.083 %) solution for nebulization 1 vial inhalation Q4H PRN (Reason: wheezing) vitamin B complex Tablet 1 tab PO DAILY magnesium 250 mg Tablet 250 mg PO DAILY ergocalciferol (vitamin D2) 1,250 mcg (50,000 unit) Capsule 1,250 mcg PO WE Patient Comments: thursday biotin 2,500 mcg Capsule 2,500 mcg PO DAILY Acidophilus Capsule 1 cap PO BID Artificial Tears (PF) 0.1-0.3 % Dropperette 1 drp OPHTHALMIC (EYE) Q4H PRN (Reason: Dry Eye(S)) polyethylene glycol 3350 17 gram powder in packet 17 g PO BID PRN (Reason: Constipation) ferrous sulfate [Feosol] 325 mg (65 mg iron) tablet 325 mg PO BEDTIME Rx Instructions: do not give ferrous sulfate that is blue fluticasone furoate-vilanterol [Breo Ellipta] 100-25 mcg/dose blister with device 1 ea inhalation DAILY PRN (Reason: Wheezing) PreserVision AREDS-2 250-90-40-1 mg capsule 1 tab PO BID Fish Oil 100-160-1,000 mg capsule 100 cap PO DAILY losartan [Cozaar] 25 mg tablet 25 mg PO DAILY Hold Instructions: Resume on 09/01/23. metoprolol tartrate [Lopressor] 100 mg tablet 100 mg PO BID escitalopram oxalate [Lexapro] 20 mg tablet 20 mg PO DAILY potassium chloride [K-Tab] 10 mEq tablet extended release 10 meq PO DAILY Hold Instructions: Resume on 08/30/23. estradiol [Yuvafem] 10 mcg tablet 10 mcg vaginal 2XW 28 Days Qty: 8 5RF Rx Instructions: Insert vaginal tablet 2 times per week Gemtesa 75 mg tablet 75 mg PO DAILY 90 Days Qty: 90 1RF fluconazole 150 mg tablet 150 mg PO Q3D Qty: 2 0RF amoxicillin-pot clavulanate [Augmentin] 500-125 mg tablet 1 tab PO Q8H 10 Days Qty: 30 0RF doxycycline hyclate 100 mg tablet 100 mg PO BID 14 Days Qty: 28 0RF albuterol sulfate [Ventolin HFA] 90 mcg/actuation HFA aerosol inhaler 2 puff inhalation Q4H PRN (Reason: wheezing) gabapentin 300 mg capsule 300 mg PO BID dexlansoprazole 30 mg capsule,biphase delayed releas 30 mg PO DAILY@1900 Interventions: ED Discharge Assessment Last Done: 12/14/23 22:53 Discharge Date/Time: 12/14/23 22:54 Print Language: Greenlandic
[2023-12-14 17:10] LABS: Troponin-I High Sensitivity 3.8 ng/L (<3.5-17.0)
[2023-12-14 17:16] LABS: Anion Gap 13 (12-20); Blood Urea Nitrogen 8 mg/dL (9-16); Calcium 9.6 mg/dL (8.4-10.2); Carbon Dioxide 26 mmol/L (22-29); Chloride 99 mmol/L (96-108); Cholesterol 99 mg/dL (<200); Estimated Glomerular Filt Rate > 60; Glucose Random 99 mg/dL (60-115); HDL Cholesterol 40 mg/dL (>40); LDL Cholesterol Calculated 37 mg/dL (<100); Potassium 5.1 mmol/L (3.3-5.1); Sodium 133 mmol/L (135-145); Triglycerides 113 mg/dL (<150)
[2023-12-14] MEDS: Labetalol HCL 100 MG/20 ML VIAL 10 MG IVPUSH ×2 (17:23→17:40)
[2023-12-14] MEDS: ondansetron HCL 4 MG/2 ML VIAL IVPUSH (17:39)
[2023-12-14] MEDS: Morphine Sulfate 4 MG/ML CARTRIDGE IVPUSH (17:39)
[2023-12-14 17:56] LABS: Stroke Lab Use COMPLETE
[2023-12-14] MEDS: hydrALAZINE HCl 20 MG/ML VIAL 10 MG IVPUSH (19:02)
[2023-12-14] MEDS: LORazepam 2 MG/ML VIAL 1 MG IVPUSH (19:04)
--- NOTE | 2023-12-14 21:48 | PC.NURSE ---
desat during ambulation trial. 96% on 2L O2 via NC. 92% on RA. while ambulating from room to the bathroom desat to 82%. pt states she feels very tired and shaky. has tremors at baseline. pt states this is worse than usual. notified. CXR ordered.
[2023-12-14] MEDS: Furosemide 40 MG/4 ML VIAL IVPUSH (21:54)
== END 2023-12-14 22:54 | disposition home or self-care (01) ==
PROVIDERS: Emergency Provider Internal Medicine; PCP Internal Medicine
DX: G45.9 Transient cerebral ischemic attack, unspecified (principal); I10 Essential (primary) hypertension; R00.1 Bradycardia, unspecified; I45.10 Unspecified right bundle-branch block; I48.91 Unspecified atrial fibrillation; Z79.01 Long term (current) use of anticoagulants; Z79.899 Other long term (current) drug therapy; Z87.891 Personal history of nicotine dependence
CPT/HCPCS: 36415; 70450; 70496; 70498; 71045; 80048; 80061; 82947; 84484; 85025; 85610; 85730; 93005; 96374; 96375; 96376; 99284; 99285; J0360; J1920; J1940; J2060; J2270; J2405; Q9967

== ENCOUNTER → 2023-12-14 16:37 | Outpatient (BNV) | payer MEDICARE, MEDICAID, SELFPAY | PROVIDERS: Emergency Provider Internal Medicine; PCP Internal Medicine; Visit Provider Internal Medicine | DX: R94.31 Abnormal electrocardiogram [ECG] [EKG] (principal) | CPT/HCPCS: 93010 ==

== ENCOUNTER 2024-01-14 14:26 | Outpatient (AMB) | payer MEDICARE, MEDICAID, SELFPAY ==
--- NOTE | 2024-01-14 14:27 | MHC.OFFWIV ---
Intake Vital Signs 01/14/24 14:29 Height 5 ft BMI Reason not done Patient refused/unable BP 128/84 Blood Pressure Location Lt brachial Position Sitting Pulse 54 Pulse Source Pulse Oximeter Temp 99.0 F Temp Source Oral Pulse Oximetry (%) 95 Oxygen Delivery Method Room Air Intake Visit Reasons: EP ?shingles Intake Note: pt c/o very itchy rash RT foot and RT side abdomen. ? Shingles Patient Tobacco Use Status: Former Tobacco user Allergies adhesive [ADHESIVE] Allergy (Unknown, Verified 01/14/24 14:27) LOCAL REACTION melatonin Allergy (Verified 01/14/24 14:27) PYSCHOSIS blue dye Adverse Reaction (Verified 01/14/24 14:27) Diarrhea Do you need a note to return to daycare/school/sports/work: No HPI HPI Comments History of Present Illness Details 73 y/o female patient who presents to the walk in clinic with c/o Itchy red rash on her right Groin. Pt worried she might have Shingles. She is accompanied by her Son who is her patient financial counselor. Son had Shingles back in October. [facility] Medical History CHF exacerbation History of stroke Abnormal colonoscopy (~04/03/22) Wheezing Anemia Urinary incontinence Right carpal tunnel syndrome Post cardiotomy syndrome PTSD (post-traumatic stress disorder) Osteoarthritis, hip, bilateral Interstitial cystitis Lipid disorder Insomnia Generalized anxiety disorder with panic attacks Major depression, recurrent History of ulcerative colitis Chronic GERD Diastolic congestive heart failure Paroxysmal atrial fibrillation Age related osteoporosis Asthma, moderate persistent Anticoagulant long-term use Iron deficiency anemia Establishing care with new doctor, encounter for Hypertension, essential Surgical History Hx of tonsillectomy Hx of colonoscopy Hx of rotator cuff surgery History of arthroplasty of both knees Hx of hysterectomy Status post mitral valve replacement Status post aortic valve replacement History of kyphoplasty History of artificial heart valve Family History Daughter Mental health disorder Substance use disorder Father Emphysema lung Mother Heart disease Stroke Pacemaker Arthritis Family/Other Colon cancer Sister Crohn's disease Social History Household Members: Children Household Members Other:: son Housing: Apartment Are you a primary acute care certified nursing assistant to a significant other at home: No Do you presently have visiting nurse or other home services: No Alcohol intake: never Patient Tobacco Use Status: Former Tobacco user e-Cigarette/Vaping Use: Never Used Substance Use Type: Marijuana Advance Directives Date on File: 03/18/22 service: No Current occupational status: retired Cognitive needs: No Hearing needs: No Vision needs: Yes Review of Systems Const All systems reviewed & are unremarkable except as noted in HPI and below Physical Exam Vital Signs: Last Vital Signs Temp 99.0 F 01/14/24 14:29 Pulse 54 01/14/24 14:29 BP 128/84 01/14/24 14:29 Pulse Ox 95 01/14/24 14:29 Oxygen Delivery Method Room Air 01/14/24 14:29 Const General: cooperative and no acute distress Nutritional Appearance: obese Orientation/consciousness: patient oriented x3 Limitations: wheelchair Skin General skin exam: crusts, dry skin and erythema Full body images: 1. Small area of vesicular Rash, red and crusting. Neuro General: patient oriented x3, gait normal (Prefers to use wheelchair, due to lower extremities weakness. ) and moves all extremities Psych Speech and movement: Normal speech and movement present Assessment & Plan Assessment & Plan (1) Rash and nonspecific skin eruption: Code(s): R21 - Rash and other nonspecific skin eruption Plan: DDx's: ?Shingles vs Dermatitis Low dose Steroid cream BID Claritin BID Benadryl at Bedtime Keep area clean and dry. Medications: New triamcinolone acetonide 0.1% 1 appl topical BID 15 grams 0RF R21 - Rash and other nonspecific skin eruption cetirizine (Zyrtec) 10 mg PO DAILY PRN 30 tabs 0RF allergy symptoms R21 - Rash and other nonspecific skin eruption Coding Level of Care Code Est Pt Level 3 (95853) Diagnoses Rash and nonspecific skin eruption R21 Time Spent (min) 15
[2024-01-14 14:29] VITALS: BP 128/84; PULSE 54; TEMP 37.2; O2SAT 95
== END 2024-01-14 14:57 | disposition home or self-care (01) ==
PROVIDERS: PCP Internal Medicine; Visit Provider Nurse Practitioner Family
DX: R21 Rash and other nonspecific skin eruption (principal)
CPT/HCPCS: 99213

== ENCOUNTER 2024-01-20 11:14 | Outpatient (AMB) | payer MEDICARE, MEDICAID, SELFPAY ==
--- NOTE | 2024-01-20 11:14 | A.OFFVIS_ITS ---
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 Required: No Accompanied by: Self / Same As Patient Allergies adhesive [ADHESIVE] Allergy (Unknown, Verified 01/20/24 11:20) LOCAL REACTION melatonin Allergy (Verified 01/20/24 11:20) PYSCHOSIS blue dye Adverse Reaction (Verified 01/20/24 11:20) Diarrhea Medication List - Last Reconciled 01/20/24 by NELI Pedroza-DANG albuterol sulfate 1 vial inhalation Q4H PRN albuterol sulfate 90 mcg/actuation (Ventolin HFA) 2 puffs inhalation Q4H PRN ascorbic acid (vitamin C) 1 g PO DAILY 90 days biotin 2,500 mcg PO DAILY cetirizine (Zyrtec) 10 mg PO DAILY PRN dexlansoprazole 30 mg PO DAILY@1900 dextran 70-hypromellose (PF) 0.1-0.3 % (Artificial Tears (PF)) 1 drp ophthalmic (eye) Q4H PRN doxepin 1 cap PO BEDTIME ergocalciferol (vitamin D2) 1,250 mcg PO WE escitalopram oxalate (Lexapro) 20 mg PO DAILY escitalopram oxalate 5 mg PO DAILY estradiol (Yuvafem) 10 mcg vaginal 2XW 28 days ferrous sulfate (Feosol) 325 mg PO BEDTIME fluticasone furoate-vilanterol 100-25 mcg/dose (Breo Ellipta) 1 ea inhalation DAILY PRN gabapentin 300 mg PO BID ketorolac 0.5% drps ophthalmic (eye) Lactobacillus acidophilus (Acidophilus capsule) 1 cap PO BID lorazepam 1 mg PO DAILY@1800 losartan (Cozaar) 25 mg PO DAILY magnesium 250 mg PO DAILY methenamine hippurate 1 g PO DAILY metoprolol tartrate (Lopressor) 100 mg PO BID omega 1-wko-trv-fish oil 100-160-1,000 mg (Fish Oil) 100 caps PO DAILY polyethylene glycol 3350 17 grams PO BID PRN potassium chloride ER (K-Tab) 10 mEq PO DAILY simvastatin (Zocor) 40 mg PO BEDTIME solifenacin (Vesicare) 10 mg PO DAILY 90 days torsemide 2 tabs PO DAILY triamcinolone acetonide 0.1% 1 appl topical BID vibegron (Gemtesa) 75 mg PO DAILY 90 days vit C,F-So-qiior-lutein-zeaxan 250-90-40-1 mg (PreserVision AREDS-2) 1 tab PO BID vitamin B complex 1 tab PO DAILY HPI Comments Details: Yaneth is a pleasant 73-year-old female patient of Dr. Bians. She has a past medical history of?diastolic CHF, iron deficiency anemia, asthma, PAF, ulcerative colitis, depression, macular degeneration, bioprosthetic aortic and mitral valve replacement on anticoagulation. She is being followed up on today via telehealth for her ongoing lower urinary tract symptoms, interstitial cystitis, mixed urinary incontinence, and hematuria. In discussion with the patient today she reports urologically she has been doing and feeling well. She reports since her last follow-up approximately 3 months ago she has had no bothersome urinary issues or concerns. She reports noting one episode of spotting of hematuria however relates this to increase in consumption of tomatoes that aggravated her bladder in the setting of interstitial cystitis. She currently denies any bothersome urinary issues or concerns. She reports compliance with urological medications as prescribed however has been finding it more difficult to insert Vagifem tablets as prescribed. She discusses her recent ER visit for question of TIA verses uncontrolled hypertension. Previous workup has included a microgen 10/15 noting Streptococcus anginosus, finegoldia magna, propionimcrobium lymphophilum, actinotignum schaalii, escherichia coli, anaerococcus prevotii, Enterococcus faecalis, Citrobacter freundii, intestinibacter bartlettii, peptoniphilus lacrimalis, gleimia europaea, corynebacterium sp, prevotella bivia, and Leaan glabrata. Previous workup has also included a cystoscopy under sedation with Dr. Arreguin 04/16 noting diffuse mucosal erythema consistent with chronic cystitis. She otherwise denies flank pain, fever, and or chills. [facility] Medical History CHF exacerbation History of stroke Abnormal colonoscopy (~04/03/22) Wheezing Anemia Urinary incontinence Right carpal tunnel syndrome Post cardiotomy syndrome PTSD (post-traumatic stress disorder) Osteoarthritis, hip, bilateral Interstitial cystitis Lipid disorder Insomnia Generalized anxiety disorder with panic attacks Major depression, recurrent History of ulcerative colitis Chronic GERD Diastolic congestive heart failure Paroxysmal atrial fibrillation Age related osteoporosis Asthma, moderate persistent Anticoagulant long-term use Iron deficiency anemia Establishing care with new doctor, encounter for Hypertension, essential Surgical History Hx of tonsillectomy Hx of colonoscopy Hx of rotator cuff surgery History of arthroplasty of both knees Hx of hysterectomy Status post mitral valve replacement Status post aortic valve replacement History of kyphoplasty History of artificial heart valve Family History Daughter Mental health disorder Substance use disorder Father Emphysema lung Mother Heart disease Stroke Pacemaker Arthritis Family/Other Colon cancer Sister Crohn's disease Social History Household Members: Children Household Members Other:: son Housing: Apartment Are you a primary child care attendant to a significant other at home: No Do you presently have visiting nurse or other home services: No Alcohol intake: never Patient Tobacco Use Status: Former Tobacco user e-Cigarette/Vaping Use: Never Used Substance Use Type: Marijuana Advance Directives Date on File: 03/18/22 service: No Current occupational status: retired Cognitive needs: No Hearing needs: No Vision needs: Yes Review of Systems Const Reports as per HPI Eyes Reports as per HPI ENT Details: Patient reports she is hard of hearing/deaf Card Reports as per HPI Resp Reports no additional complaints GI Reports as per HPI Reports as per HPI Musc Reports muscle weakness Neuro Details: forgetful Reports as per HPI Psych Reports anxiety and Reports depression Endo Reports no additional complaints Blayne/Lymph Reports as per HPI Physical Exam Const General: cooperative Orientation/consciousness: patient oriented x3 Resp Effort & Inspection: able to speak in complete sentences Neuro General: patient oriented x3 Psych Speech and movement: Clear speech present Attitude: cooperative Thought process: Normal thought process present Thought content: Normal thought content present Insight: Fair insight present (Psych) Judgement: Fair judgement present (Psych) Telehealth Telehealth Telehealth Platform: Telephone Location of provider rendering services: practice address Location of patient: address on file Patient Identification confirmed using: Name, : Yes Telehealth method: voice only Patient verbally consented to treatment: Yes Patient verbally consented to billing insurance company: Yes Patient informed of any privacy concerns related to visit: Yes Minutes spent on Phone/Video with Pt.: 40 Assessment & Plan Assessment & Plan (1) Incontinence: Code(s): R32 - Unspecified urinary incontinence Category: Medical (2) Urinary tract infection: Code(s): N39.0 - Urinary tract infection, site not specified Category: Medical (3) Frequency of urination: Code(s): R35.0 - Frequency of micturition Category: Medical (4) Gross hematuria: Code(s): R31.0 - Gross hematuria Category: Medical (5) Recurrent UTI: Code(s): N39.0 - Urinary tract infection, site not specified Category: Medical (6) Urine incontinence: Code(s): R32 - Unspecified urinary incontinence Category: Medical (7) Interstitial cystitis: Code(s): N30.10 - Interstitial cystitis (chronic) without hematuria Category: Medical Plan Patient currently denies any bothersome urinary issues or concerns. She reports to be doing well with Gemtesa, VESIcare, methenamine, and vitamin-C. Discussed trialing Estrace cream verses Vagifem as patient has been having difficulty with administration with vaginal tablets. Start Estrace cream as discussed and prescribed. We discussed at length bladder triggers and irritants. Discussed importance of timed/scheduled voiding given decreased mobility to avoid incontinent episodes. She currently denies any UTI like symptoms. She reports be happy with current voiding parameters. Follow-up in 3 months; or sooner with any issues, concerns, and or questions. Medications: New estradiol 0.01%(0.1mg/gram) pea sized amount to urethra 3 times a week 42.5 grams 3RF 90 days Discontinued estradiol (Yuvafem) Insert vaginal tablet 2 times per week Discontinued Reason: Doctor's Order 10 mcg vaginal 2XW 28 days 8 tabs 5RF Patient Instructions: The patient had an opportunity to ask questions regarding the treatment plan. All questions were answered. Physical exam, labs, and imaging were discussed and reviewed in detail. As well as risks, benefits, and discussion of treatment choices. No major barriers to understanding were identified. The patient expressed understanding and agreement with the above treatment plan. The patient was made aware they should contact our office by phone for worsening of their current condition, the appearance of new symptoms, or with any questions or concerns. Compliance is encouraged with any medications and follow up testing that is ordered. It is a privilege to be allowed the opportunity to participate in? your urological care.? Again, if you have any questions or concerns If you have any questions or concerns please do not hesitate to contact me. The office is [phone]. This note is constructed using voice recognition software. While every effort has been made to ensure accuracy drain tiler errors may have been included. Yours sincerely, ROSEMARIE Pedroza Coding Level of Care Code Tele Est Pt Level 4 (69107) Diagnoses Incontinence R32 Urinary tract infection N39.0 Frequency of urination R35.0 Gross hematuria R31.0 Recurrent UTI N39.0 Urine incontinence R32 Interstitial cystitis N30.10 Time Spent (min) 40
== END 2024-01-20 12:06 | disposition home or self-care (01) ==
LOC: HO.HUSH 11:14
PROVIDERS: PCP Internal Medicine; Visit Provider Nurse Practitioner Family
DX: R32 Unspecified urinary incontinence (principal); N39.0 Urinary tract infection, site not specified; R35.0 Frequency of micturition; R31.0 Gross hematuria; N30.10 Interstitial cystitis (chronic) without hematuria
CPT/HCPCS: 99443

== ENCOUNTER → 2024-01-20 11:14 | Outpatient (BNVA) | payer MEDICARE, MEDICAID, SELFPAY | PROVIDERS: PCP Internal Medicine; Visit Provider Nurse Practitioner Family ==

== ENCOUNTER 2024-04-12 15:48 | Outpatient (AMB) | payer MEDICARE, MEDICAID, SELFPAY ==
--- NOTE | 2024-04-12 15:51 | AM.OFFWIN_ITS ---
Intake Vital Signs 04/12/24 16:05 BP 126/78 Blood Pressure Location Lt brachial Position Sitting Pulse 55 Pulse Source Pulse Oximeter Pulse Oximetry (%) 98 Oxygen Delivery Method Room Air Intake Visit Reasons: EP Rt knee pain Patient Tobacco Use Status: Former Tobacco user Allergies adhesive [ADHESIVE] Allergy (Unknown, Verified 04/12/24 16:05) LOCAL REACTION melatonin Allergy (Verified 04/12/24 16:05) PYSCHOSIS blue dye Adverse Reaction (Verified 04/12/24 16:05) Diarrhea Do you need a note to return to daycare/school/sports/work: No HPI HPI Comments History of Present Illness Details This is a 73-year-old female with a past medical history of bilateral total knee replacements, coronary artery disease, aortic and mitral valve replacement, hyperlipidemia and hypertension presenting for evaluation of right knee pain that she has had for the past 1 week. Patient denies any injury or trauma preceding the onset of her right anterior knee pain. Patient has taken her previously prescribed gabapentin only for relief of her discomfort. Patient denies having any fevers, chills, right calf pain or right hip pain. [facility] Medical History CHF exacerbation History of stroke Abnormal colonoscopy (~04/03/22) Wheezing Anemia Urinary incontinence Right carpal tunnel syndrome Post cardiotomy syndrome PTSD (post-traumatic stress disorder) Osteoarthritis, hip, bilateral Interstitial cystitis Lipid disorder Insomnia Generalized anxiety disorder with panic attacks Major depression, recurrent History of ulcerative colitis Chronic GERD Diastolic congestive heart failure Paroxysmal atrial fibrillation Age related osteoporosis Asthma, moderate persistent Anticoagulant long-term use Iron deficiency anemia Establishing care with new doctor, encounter for Hypertension, essential Surgical History Hx of tonsillectomy Hx of colonoscopy Hx of rotator cuff surgery History of arthroplasty of both knees Hx of hysterectomy Status post mitral valve replacement Status post aortic valve replacement History of kyphoplasty History of artificial heart valve Family History Daughter Mental health disorder Substance use disorder Father Emphysema lung Mother Heart disease Stroke Pacemaker Arthritis Family/Other Colon cancer Sister Crohn's disease Social History Household Members: Children Household Members Other:: son Housing: Apartment Are you a primary intensive care nurse to a significant other at home: No Do you presently have visiting nurse or other home services: No Alcohol intake: never Patient Tobacco Use Status: Former Tobacco user e-Cigarette/Vaping Use: Never Used Substance Use Type: Marijuana Advance Directives Date on File: 03/18/22 service: No Current occupational status: retired Cognitive needs: No Hearing needs: No Vision needs: Yes Review of Systems Const All systems reviewed & are unremarkable except as noted in HPI and below Denies chills, Denies fatigue and Denies fever(s) Eyes Reports no additional complaints ENT Reports no additional complaints Card Reports no additional complaints GI Reports no additional complaints Reports no additional complaints Musc Reports arthralgias (right knee), Denies muscle cramps, Denies numbness and Denies tingling Skin/Breast Reports system reviewed and no additional complaints, except as documented Neuro Reports no additional complaints, Denies numbness and Denies tingling Psych Reports no additional complaints Endo Denies fatigue Aller/Immun Reports no additional complaints Physical Exam Const General: cooperative, no acute distress and anxious Nutritional Appearance: obese Orientation/consciousness: patient oriented x3 Limitations: wheelchair Skin General skin exam: no rashes or lesions noted Lesions: no lesions Rashes: no rashes Wounds: no wounds Neuro General: patient oriented x3 Extrem Right lower extremity: full ROM (passive ROM right knee intact), no joint enlargement and knee Details: tenderness Location: of the medial joint line; not of the popliteal fossa, not of the lateral joint line, not of the pre-patellar area and not of the distal upper leg and warmth (mild warmth to touch anterior R. knee, no erythema, no effusion); ROM normal, no abrasions, no lacerations and no ecchymosis; no edema Psych Appearance: grossly normal Mental Status: mental status grossly normal Insight: Good insight present (Psych) Judgement: Good judgement present (Psych) Results Reviewed Results Reviewed: X-ray right knee is reviewed; no acute findings. Assessment & Plan Assessment & Plan (1) Right anterior knee pain: Code(s): M25.561 - Pain in right knee Plan: Patient will follow up with her surgeon at [facility] for ongoing management of her right knee pain. Plan Naprosyn 500mg every 12 hours x 10 days; follow-up with [facility] for ongoing management. Patient will call tomorrow to schedule this outpatient follow-up. Medications: New naproxen (Naprosyn) 500 mg PO BID 20 tabs 0RF Coding Level of Care Code Est Pt Level 3 (42802) Diagnoses Right anterior knee pain M25.561 Time Spent (min) 30
[2024-04-12 16:05] VITALS: BP 126/78; PULSE 55; O2SAT 98
== END 2024-04-12 16:54 | disposition home or self-care (01) ==
PROVIDERS: PCP Internal Medicine; Visit Provider Physician Assistant
DX: M25.561 Pain in right knee (principal)

== ENCOUNTER 2024-04-12 15:48 | Outpatient (REF) | payer MEDICARE, MEDICAID, SELFPAY ==
--- NOTE | ~2024-04-12 | XR_ITS ---
EXAMINATION: XR KNEE, RIGHT CLINICAL INFORMATION: M25.561 - Pain in right knee COMPARISON: February 11, 2020 TECHNIQUE: Four views of the right knee. FINDINGS: Patient is status post right knee arthroplasty. There is no joint effusion. Patient is status post patellar resurfacing. Resolved joint effusion, fractures. XR/XR knee RT 4V IMPRESSION: Status post right knee arthroplasty. Electronically signed by: Josue Sethi MD 04/12/2024 07:40 PM TERE
== END 2024-04-12 15:49 | disposition home or self-care (01) ==
LOC: HO.HMGCX 15:48
PROVIDERS: PCP Internal Medicine; Visit Provider Physician Assistant
DX: M25.561 Pain in right knee (principal); Z98.890 Other specified postprocedural states
CPT/HCPCS: 73564; 99212

== ENCOUNTER 2024-04-13 12:54 | Outpatient (AMB) | payer MEDICARE, SELFPAY ==
--- NOTE | 2024-04-13 13:13 | MHC.OFFVIS ---
Vital Signs 04/13/24 13:13 Height 5 ft Intake Visit Reasons: INP-Tremors Intake Note: Patient presents fpor tremors Allergies adhesive [ADHESIVE] Allergy (Unknown, Verified 04/13/24 13:15) LOCAL REACTION melatonin Allergy (Verified 04/13/24 13:15) PYSCHOSIS blue dye Adverse Reaction (Verified 04/13/24 13:15) Diarrhea Medication List - Last Reconciled 04/13/24 by Noemy Knight MD albuterol sulfate 1 vial inhalation Q4H PRN albuterol sulfate 90 mcg/actuation (Ventolin HFA) 2 puffs inhalation Q4H PRN ascorbic acid (vitamin C) 1 g PO DAILY 90 days biotin 2,500 mcg PO DAILY cetirizine (Zyrtec) 10 mg PO DAILY PRN dexlansoprazole 30 mg PO DAILY@1900 dextran 70-hypromellose (PF) 0.1-0.3 % (Artificial Tears (PF)) 1 drp ophthalmic (eye) Q4H PRN doxepin 1 cap PO BEDTIME ergocalciferol (vitamin D2) 1,250 mcg PO WE escitalopram oxalate (Lexapro) 20 mg PO DAILY escitalopram oxalate 5 mg PO DAILY estradiol 0.01%(0.1mg/gram) pea sized amount to urethra 3 times a week 90 days ferrous sulfate (Feosol) 325 mg PO BEDTIME fluticasone furoate-vilanterol 100-25 mcg/dose (Breo Ellipta) 1 ea inhalation DAILY PRN gabapentin 300 mg PO BID ketorolac 0.5% drps ophthalmic (eye) Lactobacillus acidophilus (Acidophilus capsule) 1 cap PO BID lorazepam 1 mg PO DAILY@1800 losartan (Cozaar) 25 mg PO DAILY magnesium 250 mg PO DAILY methenamine hippurate 1 g PO DAILY metoprolol tartrate (Lopressor) 100 mg PO BID naproxen (Naprosyn) 500 mg PO BID omega 1-mlz-rwn-fish oil 100-160-1,000 mg (Fish Oil) 100 caps PO DAILY polyethylene glycol 3350 17 grams PO BID PRN potassium chloride ER (K-Tab) 10 mEq PO DAILY simvastatin (Zocor) 40 mg PO BEDTIME solifenacin (Vesicare) 10 mg PO DAILY 90 days torsemide 2 tabs PO DAILY triamcinolone acetonide 0.1% 1 appl topical BID vibegron (Gemtesa) 75 mg PO DAILY 90 days vit C,T-Ra-wajdh-lutein-zeaxan 250-90-40-1 mg (PreserVision AREDS-2) 1 tab PO BID vitamin B complex 1 tab PO DAILY HPI Comments Details: 73y/o Right handed female with complex medical issues comes for evaluation of tremors.She is accompanied by her son Mich who helps with history . She started noticing tremors in her hands about 2 years ago. It was mild and intermittent and she thought it was related to stress but in the past year it has worsened . The tremors are usually with rest and action. she stopped sending [employer] cards 2 years ago as she is unable to write. The tremors may affect her activities of daily living. she has several episodes a week.The episodes can last 20-30 minutes.she is unable to recall any triggers for her tremors. She also reports muscle twitches in leg and forearms - 2-3 times a week. she is unable to provide more history.she had a home sleep test 1 year ago and was told it was normal. SHe has gait issues due to bryant knee arthritis. she also has short term memory issues which her son thinks that her hearing impairment is contributing. She has trouble falling asleep and staying asleep. [facility], [facility] Medical History (Updated 04/13/24 @ 14:29 by Noemy Knight MD) Memory loss, short term Carpal tunnel syndrome on both sides Cataract CHF exacerbation History of stroke Abnormal colonoscopy (~04/03/22) Wheezing Anemia Urinary incontinence Right carpal tunnel syndrome Post cardiotomy syndrome PTSD (post-traumatic stress disorder) Osteoarthritis, hip, bilateral Interstitial cystitis Lipid disorder Insomnia Generalized anxiety disorder with panic attacks Major depression, recurrent History of ulcerative colitis Chronic GERD Diastolic congestive heart failure Paroxysmal atrial fibrillation Age related osteoporosis Asthma, moderate persistent Anticoagulant long-term use Iron deficiency anemia Establishing care with new doctor, encounter for Hypertension, essential Surgical History Hx of tonsillectomy Hx of colonoscopy Hx of rotator cuff surgery History of arthroplasty of both knees Hx of hysterectomy Status post mitral valve replacement Status post aortic valve replacement History of kyphoplasty History of artificial heart valve Family History Daughter Mental health disorder Substance use disorder Father Emphysema lung Mother Heart disease Stroke Pacemaker Arthritis Family/Other Colon cancer Sister Crohn's disease Social History Household Members: Children Household Members Other:: son Housing: Apartment Are you a primary senior resident care director to a significant other at home: No Do you presently have visiting nurse or other home services: No Alcohol intake: never Patient Tobacco Use Status: Former Tobacco user e-Cigarette/Vaping Use: Never Used Substance Use Type: Marijuana Advance Directives Date on File: 03/18/22 service: No Current occupational status: retired Cognitive needs: No Hearing needs: No Vision needs: Yes Physical Exam Const General: cooperative and in distress Nutritional Appearance: obese Orientation/consciousness: patient oriented x3 Eyes Pupils: Equal, round and reactive pupils present Neuro Other: bryant intremittent postural and cation tremors No cog wheel rigidity gait- good posture, antalgic and slow General: patient oriented x3, tone normal, moves all extremities and no focal motor deficits Cranial nerves: Yes Facial sensation intact/muscles of mastication intact, Yes Equal, round and reactive pupils present, Yes Bilaterally intact EOM present, Yes Nystagmus not present, Yes Normal facial strength present, Yes Symmetric palate elevation present, Yes Ability to bilaterally rotate head present and Yes Ability to bilaterally elevate shoulders present Cognition (Neuro): normal cognition Gait exam (Neuro): Antalgic gait present Motor exam (neuro): 5/5 motor strength present throughout and Normal motor muscle tone present throughout Deep tendon reflexes (DTR's): Right triceps reflex intensity grade: 1+, Left triceps reflex intensity grade: 1+, Rt Biceps (C5, C6): 1+, Left biceps reflex intensity grade: 1+, Right patellar reflex intensity grade: 1+ and Left patellar reflex intensity grade: 1+ Coordination: [id number] test normal Orientation What is the (year) (season) (date) (day) (month)?: year (2023), season (fall), date (03/2024), day (thursday) and month Where are we (state) ([facility]) (town or city) (hospital) (floor)?[place] state [place]), town or city ([place]), hospital/clinic (clinic) and floor (1st) Registration Name of 3 unrelated objects clearly and slowly, then ask patient to repeat all 3 of them. (1st repeat determines score. Make sure they can repeat all three): object 1 (watch), object 2 and object 3 Attention & Calculation (CHOOSE ONE) Spell WORLD backwards (DLROW): 5 letters (yes) Recall Ask patient to repeat the 3 items from question #3.: object 1, object 2 and object 3 Language Show patient a wristwatch & ask what it is. Repeat for pencil.: watch and pencil Ask the patient to repeat the phrase 'No ifs, ands, or buts' after you.: correct Ask the patient to 'take a piece of paper with their right hand' 'fold paper in half' 'place paper on floor': take paper in right hand (yes), fold paper in half and place paper on floor Print the sentence 'CLOSE YOUR EYES' on a piece. If patient actually closes eyes then score.: followed written direction Give patient a blank piece of paper & ask to write a sentence. Score if it contains a noun & verb.: sentence contains subject and verb Ask patient to copy figure of intersecting pentagons exactly. Score if all 10 angles & 2 intersects are included.: all 10 angles present & 2 are intersected Score Score: 29 Assessment & Plan Assessment & Plan (1) Coarse tremor: Code(s): G25.2 - Other specified forms of tremor (2) Memory loss, short term: Code(s): R41.3 - Other amnesia Category: Medical Plan Her tremors are likely exaggerated physiological tremors I suggested f/u with Dr. JASSO for her carpal tunnel and OT for hand strengthening No evidence of Parkinsons SHe tested well on MMSE - I suggested to fix her hearing aides as hearing impairment is a risk factor for dementia. Orders: Orders OT Evaluation and Treatment Today G25.2 - Other specified forms of tremor, G56.03 - Carpal tunnel syndrome, bilateral upper limbs Coding Level of Care Code New Pt Level 4 (34791) Complex EM visit Add On G2211 Diagnoses Coarse tremor G25.2 Memory loss, short term R41.3
== END 2024-04-13 14:09 | disposition home or self-care (01) ==
PROVIDERS: PCP Internal Medicine; Visit Provider Psychiatry & Neurology Neurology
DX: G25.2 Other specified forms of tremor (principal); R41.3 Other amnesia
CPT/HCPCS: 99204; G2211

== ENCOUNTER → 2024-04-13 12:54 | Outpatient (BNVA) | payer MEDICARE, OTHER, SELFPAY | PROVIDERS: PCP Internal Medicine; Visit Provider Psychiatry & Neurology Neurology | DX: G25.2 Other specified forms of tremor (principal); R41.3 Other amnesia | CPT/HCPCS: 99202 ==

== ENCOUNTER 2024-04-19 11:32 | Outpatient (AMB) | payer MEDICARE, MEDICAID, SELFPAY ==
--- NOTE | 2024-04-19 11:34 | A.OFFVIS_ITS ---
Intake Visit Reasons: 3M f/u Intake Note: Patient presents today for follow up on: interstitial cystitis, incontinence, recurrent uti Urology Medications: Vitamin C, Methenamine, Vesicare, Gemtesa Blood Thinner: Warfarin Allergies to Antibiotic: No Known Allergies PVR: 17ml's Database Tester Required: No Accompanied by: Self / Same As Patient Allergies adhesive [ADHESIVE] Allergy (Unknown, Verified 04/19/24 12:36) LOCAL REACTION melatonin Allergy (Verified 04/19/24 12:36) PYSCHOSIS blue dye Adverse Reaction (Verified 04/19/24 12:36) Diarrhea Medication List - Last Reconciled 04/19/24 by NELI Pedroza- albuterol sulfate 1 vial inhalation Q4H PRN albuterol sulfate 90 mcg/actuation (Ventolin HFA) 2 puffs inhalation Q4H PRN ascorbic acid (vitamin C) 1 g PO DAILY 90 days biotin 2,500 mcg PO DAILY cetirizine (Zyrtec) 10 mg PO DAILY PRN dexlansoprazole 30 mg PO DAILY@1900 dextran 70-hypromellose (PF) 0.1-0.3 % (Artificial Tears (PF)) 1 drp ophthalmic (eye) Q4H PRN doxepin 1 cap PO BEDTIME ergocalciferol (vitamin D2) 1,250 mcg PO WE escitalopram oxalate (Lexapro) 20 mg PO DAILY escitalopram oxalate 5 mg PO DAILY estradiol 0.01%(0.1mg/gram) pea sized amount to urethra 3 times a week 90 days ferrous sulfate (Feosol) 325 mg PO BEDTIME fluticasone furoate-vilanterol 100-25 mcg/dose (Breo Ellipta) 1 ea inhalation DAILY PRN gabapentin 300 mg PO BID ketorolac 0.5% drps ophthalmic (eye) Lactobacillus acidophilus (Acidophilus capsule) 1 cap PO BID lorazepam 1 mg PO DAILY@1800 losartan (Cozaar) 25 mg PO DAILY magnesium 250 mg PO DAILY methenamine hippurate 1 g PO DAILY metoprolol tartrate (Lopressor) 100 mg PO BID naproxen (Naprosyn) 500 mg PO BID omega 4-yon-zee-fish oil 100-160-1,000 mg (Fish Oil) 100 caps PO DAILY polyethylene glycol 3350 17 grams PO BID PRN potassium chloride ER (K-Tab) 10 mEq PO DAILY simvastatin (Zocor) 40 mg PO BEDTIME solifenacin (Vesicare) 10 mg PO DAILY 90 days torsemide 2 tabs PO DAILY triamcinolone acetonide 0.1% 1 appl topical BID vibegron (Gemtesa) 75 mg PO DAILY 90 days vit C,M-Fp-svvpq-lutein-zeaxan 250-90-40-1 mg (PreserVision AREDS-2) 1 tab PO BID vitamin B complex 1 tab PO DAILY HPI Comments Details: Yaneth is a pleasant 73-year-old female patient of Dr. Bains who was accompanied by her son Mich at today's office visit. She has a past medical history of?diastolic CHF, iron deficiency anemia, asthma, PAF, ulcerative colitis, depression, macular degeneration, bioprosthetic aortic and mitral valve replacement on anticoagulation. She presents to the office today for follow-up of her ongoing lower urinary tract symptoms, interstitial cystitis, mixed urinary incontinence, and hematuria. 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 She reports the symptoms are intermittent however feels they are exacerbated by stress. In office urinalysis results reviewed with the patient today. 3+ leukocytes negative nitrates PVR 17 mL. She reports compliance with Gemtesa, VESIcare, methenamine, and vitamin-C as prescribed. We discussed importance of compliance with Estrace cream verses Vagifem. She will restart. We discussed further treatment options of interstitial cystitis to include rescue solutions verses low-dose Cialis for bladder stability. She will continue with current regimen at this time. She otherwise denies flank pain, fever, and or chills. She discusses having followed up with Neurology here at [facility]. Previous workup has included a microgen 10/15 noting Streptococcus anginosus, finegoldia magna, propionimcrobium lymphophilum, actinotignum schaalii, escherichia coli, anaerococcus prevotii, Enterococcus faecalis, Citrobacter freundii, intestinibacter bartlettii, peptoniphilus lacrimalis, gleimia europaea, corynebacterium sp, prevotella bivia, and Leana glabrata. Also a cystoscopy under sedation with Dr. Arreguin 04/16 noting diffuse mucosal erythema consistent with chronic cystitis. FORMERLY [facility] Medical History Memory loss, short term Carpal tunnel syndrome on both sides Cataract CHF exacerbation History of stroke Abnormal colonoscopy (~04/03/22) Wheezing Anemia Urinary incontinence Right carpal tunnel syndrome Post cardiotomy syndrome PTSD (post-traumatic stress disorder) Osteoarthritis, hip, bilateral Interstitial cystitis Lipid disorder Insomnia Generalized anxiety disorder with panic attacks Major depression, recurrent History of ulcerative colitis Chronic GERD Diastolic congestive heart failure Paroxysmal atrial fibrillation Age related osteoporosis Asthma, moderate persistent Anticoagulant long-term use Iron deficiency anemia Establishing care with new doctor, encounter for Hypertension, essential Surgical History Hx of tonsillectomy Hx of colonoscopy Hx of rotator cuff surgery History of arthroplasty of both knees Hx of hysterectomy Status post mitral valve replacement Status post aortic valve replacement History of kyphoplasty History of artificial heart valve Family History Daughter Mental health disorder Substance use disorder Father Emphysema lung Mother Heart disease Stroke Pacemaker Arthritis Family/Other Colon cancer Sister Crohn's disease Social History Household Members: Children Household Members Other:: son Housing: Apartment Are you a primary patient care nursing assistant to a significant other at home: No Do you presently have visiting nurse or other home services: No Alcohol intake: never Patient Tobacco Use Status: Former Tobacco user e-Cigarette/Vaping Use: Never Used Substance Use Type: Marijuana Advance Directives Date on File: 03/18/22 service: No Current occupational status: retired Cognitive needs: No Hearing needs: No Vision needs: Yes Review of Systems Const Reports as per HPI Eyes Reports as per HPI ENT Details: Patient reports she is hard of hearing/deaf Card Reports as per HPI Resp Reports no additional complaints GI Reports as per HPI Reports as per HPI Musc Reports muscle weakness Neuro Details: forgetful Reports as per HPI Psych Reports anxiety and Reports depression Endo Reports no additional complaints Blayne/Lymph Reports as per HPI Physical Exam Const General: cooperative, healthy appearing, no acute distress, well developed, alert, awake and ill appearing Nutritional Appearance: overweight Orientation/consciousness: oriented to person Limitations: wheelchair HEENT Head: Yes normal to inspection, Yes normocephalic and Yes atraumatic Eyes General: appearance normal, both eyes and all related structures Neck Neck: Yes normal visual inspection Chest Chest palpation & inspection: normal inspection of the chest Resp Effort & Inspection: normal respiratory effort and able to speak in complete sentences Cardio Rate: regular rate GI Inspection: Yes normal to inspection and Yes Abdominal panniculus present General: Yes no CVA tenderness Back/Spine/Pelvis Back: no CVA tenderness Skin General skin exam: no rashes or lesions noted Neuro General: oriented to person Extrem General: Yes normal to inspection Psych Appearance: grossly normal and well kempt Speech and movement: Normal speech and movement present and Clear speech present Affect: normal affect Attitude: cooperative Insight: Fair insight present (Psych) Judgement: Fair judgement present (Psych) Office Procedures Post Void Residual Post Residual Void Post Void Residual (PVR): 17 [id number] Void Residual by ultrasound Results AMB Urinalysis, Automated UA Leukoctes 500 Aleisha/uL Last Edit by Reilly Main on 04/19/24 12:10 UA Nitrite Last Edit by [email or web address] Sanna on 04/19/24 12:10 UA Urobilinogen 0.2 mg/dL Last Edit by EloyBBC Easyyessi Isidro on 04/19/24 12:10 UA Protein 15 mg/dL Last Edit by [employer] on 04/19/24 12:10 UA pH 6.0 Last Edit by [employer] on 04/19/24 12:10 UA Blood 80 Negrito/uL Last Edit by DUHEM Sanna on 04/19/24 12:10 UA Specific [place] 1.015 Last Edit by [employer] on 04/19/24 12:10 UA Ketone Negative Last Edit by DUHEM Etelvina on 04/19/24 12:10 UA Bilirubin 0 mg/dL Last Edit by [employer] on 04/19/24 12:10 UA Glucose 0 mg/dL Last Edit by Reilly Isidro on 04/19/24 12:10 Results Reviewed Results Reviewed: Laboratory Last Values Urine pH (Auto) 6.0 04/19/24 12:02 Specific [place] (Auto) 1.015 04/19/24 12:02 Urine Protein (Auto) 15 mg/dL 04/19/24 12:02 Glucose (UA)(Auto) 0 mg/dL 04/19/24 12:02 Urine Ketones (Auto) Negative 04/19/24 12:02 Urine Blood (Auto) 80 Negrito/uL 04/19/24 12:02 Urine Bilirubin (Auto) 0 mg/dL 04/19/24 12:02 Urine Urobilinogen (Auto) 0.2 mg/dL 04/19/24 12:02 Leukocyte Esterase (Auto) 500 Aleisha/uL 04/19/24 12:02 Assessment & Plan Assessment & Plan (1) Incontinence: Code(s): R32 - Unspecified urinary incontinence Category: Medical (2) Urinary tract infection: Code(s): N39.0 - Urinary tract infection, site not specified Category: Medical (3) Frequency of urination: Code(s): R35.0 - Frequency of micturition Category: Medical (4) Recurrent UTI: Code(s): N39.0 - Urinary tract infection, site not specified Category: Medical (5) Urine incontinence: Code(s): R32 - Unspecified urinary incontinence Category: Medical (6) Interstitial cystitis: Code(s): N30.10 - Interstitial cystitis (chronic) without hematuria Category: Medical Plan In office urinalysis results reviewed with the patient today; as noted above; will send for urine culture; will await urine culture results for potential treatment PVR 17mls Continue Gemtesa, VESIcare, methenamine, and vitamin-C. Discussed trialing Estrace cream verses Vagifem as patient has been having difficulty with administration with vaginal tablets. Re start Estrace cream as discussed and prescribed. We discussed at length bladder triggers and irritants. Discussed importance of timed/scheduled voiding given decreased mobility to avoid incontinent episodes. Discussed UTI prevention with D mannose supplement, vitamin-C, increasing fluid intake, behavioral therapy with timed voiding, perineal hygiene and postcoital voiding, and management of constipation with stool softeners and increased fiber intake. Follow-up in 3 months; or sooner with any issues, concerns, and or questions. Orders: Orders AMB Urinalysis Automated Today Z13.9 - Encounter for screening, unspecified AMB Post Void Residual by ultrasound Today R32 - Unspecified urinary incontinence Patient Instructions: The patient had an opportunity to ask questions regarding the treatment plan. All questions were answered. Physical exam, labs, and imaging were discussed and reviewed in detail. As well as risks, benefits, and discussion of treatment choices. No major barriers to understanding were identified. The patient expressed understanding and agreement with the above treatment plan. The patient was made aware they should contact our office by phone for worsening of their current condition, the appearance of new symptoms, or with any questions or concerns. Compliance is encouraged with any medications and follow up testing that is ordered. It is a privilege to be allowed the opportunity to participate in? your urological care.? Again, if you have any questions or concerns If you have any questions or concerns please do not hesitate to contact me. The office is [phone]. This note is constructed using voice recognition software. 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 Yours sincerely, ROSEMARIE Pedroza Coding Level of Care Code Est Pt Level 4 (86570) Complex EM visit Add On G2211 Diagnoses Incontinence R32 Urinary tract infection N39.0 Frequency of urination R35.0 Recurrent UTI N39.0 Urine incontinence R32 Interstitial cystitis N30.10 CPT Codes Post Residual Void - PVR CPT Code: 36011-Ijzx Void Residual by ultrasound ([id number])
== END 2024-04-19 12:38 | disposition home or self-care (01) ==
PROVIDERS: PCP Internal Medicine; Visit Provider Nurse Practitioner Family
DX: R32 Unspecified urinary incontinence (principal); N39.0 Urinary tract infection, site not specified; R35.0 Frequency of micturition; N30.10 Interstitial cystitis (chronic) without hematuria; Z13.9 Encounter for screening, unspecified
CPT/HCPCS: 99214; G2211

== ENCOUNTER 2024-04-19 11:32 | Outpatient (REF) | payer MEDICARE, MEDICAID, SELFPAY | END 2024-04-19 11:33 | disposition home or self-care (01) | LOC: HO.LNP 11:32 | PROVIDERS: PCP Internal Medicine; Visit Provider Nurse Practitioner Family | DX: R32 Unspecified urinary incontinence (principal); R35.0 Frequency of micturition; N30.10 Interstitial cystitis (chronic) without hematuria | CPT/HCPCS: 51798; 81003; 87086; 87088; 87186; 99212 ==

== ENCOUNTER 2024-04-20 13:02 | Outpatient (AMB) | payer MEDICARE, MEDICAID, SELFPAY ==
[2024-04-20 13:04] VITALS: BP 124/72; PULSE 54; O2SAT 94; BMI 39.3
--- NOTE | 2024-04-20 13:04 | A.OFFPC_ITS ---
Vital Signs 3 04/20/24 13:04 Height 5 ft Weight 201 lb 6 oz BMI 39.3 BP 124/72 Blood Pressure Location Lt brachial Position Sitting Pulse 54 Pulse Source Pulse Oximeter Pulse Oximetry (%) 94 Oxygen Delivery Method Room Air Intake Visit Reasons: Anemia follow up Allergies adhesive [ADHESIVE] Allergy (Unknown, Verified 04/20/24 13:04) LOCAL REACTION melatonin Allergy (Verified 04/20/24 13:04) PYSCHOSIS blue dye Adverse Reaction (Verified 04/20/24 13:04) Diarrhea Medication List - Last Reconciled 04/20/24 by Negrita Bains MD albuterol sulfate 1 vial inhalation Q4H PRN albuterol sulfate 90 mcg/actuation (Ventolin HFA) 2 puffs inhalation Q4H PRN ascorbic acid (vitamin C) 1 g PO DAILY 90 days biotin 2,500 mcg PO DAILY cetirizine (Zyrtec) 10 mg PO DAILY PRN dexlansoprazole 30 mg PO DAILY@1900 dextran 70-hypromellose (PF) 0.1-0.3 % (Artificial Tears (PF)) 1 drp ophthalmic (eye) Q4H PRN doxepin 1 cap PO BEDTIME ergocalciferol (vitamin D2) 1,250 mcg PO WE escitalopram oxalate (Lexapro) 20 mg PO DAILY estradiol 0.01%(0.1mg/gram) pea sized amount to urethra 3 times a week 90 days ferrous sulfate (Feosol) 325 mg PO BEDTIME fluticasone furoate-vilanterol 100-25 mcg/dose (Breo Ellipta) 1 ea inhalation DAILY PRN gabapentin 300 mg PO BID ketorolac 0.5% drps ophthalmic (eye) Lactobacillus acidophilus (Acidophilus capsule) 1 cap PO BID lorazepam 1 mg PO DAILY@1800 losartan (Cozaar) 25 mg PO DAILY magnesium 250 mg PO DAILY methenamine hippurate 1 g PO DAILY metoprolol tartrate (Lopressor) 100 mg PO BID naproxen (Naprosyn) 500 mg PO BID omega 6-sbz-tew-fish oil 100-160-1,000 mg (Fish Oil) 100 caps PO DAILY polyethylene glycol 3350 17 grams PO BID PRN simvastatin (Zocor) 40 mg PO BEDTIME solifenacin (Vesicare) 10 mg PO DAILY 90 days torsemide 2 tabs PO DAILY triamcinolone acetonide 0.1% 1 appl topical BID vibegron (Gemtesa) 75 mg PO DAILY 90 days vit C,D-Jc-wsezz-lutein-zeaxan 250-90-40-1 mg (PreserVision AREDS-2) 1 tab PO BID vitamin B complex 1 tab PO DAILY Tobacco use date assessed: 04/20/24 Fall risk assessment: No Falls in past year Last assessed Fall Risk: 04/20/24 Dental Screening Dental Screen Date: 04/20/24 HPI Anemia follow up 2 HPI0 Details Chief Complaint New skin lesion evaluation Assessment and Plan 73-year-old female with a history of , e ssential hypertension, insomnia, and past transient ischemic attacks presenting with exacerbation of bladder pain and a new dermatological concern. The patient also reports recent knee-related discomfort following a past knee replacement with associated nerve damage. She expresses concerns about her recent episode of high blood pressure correlated with her TIA and past anemic status. The patient has a new finding of a dark skin lesion requiring further dermatological evaluation. 1. Past Anemia Patient previously anemic, now resolved. Will obtain hemoglobin levels to ensure stability. 2. Dermatological Concern Black Spot Noted 2 cm x 1 cm dark spot identified. Patient will contact [facility] for evaluation and follow-up as previously established patient. 3. Bladder Pain Patient reported recent exacerbation of bladder pain. She has had consultation with her urologist and is currently implementing suggested modifications. Reinforce adherence to prescribed management and lifestyle adjustments. 4. Insomnia Patient experiencing sleep disturbances; currently taking Doxepine with a transition from Ambien. Reassess sleep regimen and discuss with psychiatrist during upcoming session. 5. Transient Ischemic Attack Tia Previous TIA correlated with acute hypertension. Consider discussing anticoagulation strategy with the can inspector to determine further management. 6. Essential Hypertension The patient experienced an episode of severely elevated blood pressure requiring hospital treatment. Blood pressure management to be closely monitored; continue current medications. 7. Status Post-Knee Replacement With Ner ve Damage Patient experiencing chronic knee pain managed with Naproxen after being cleared from anticoagulants. Reinforce continued use of alleviating medications while monitoring for gastrointestinal tolerance. Problem List - Bladder Pain managed by Urology - Essential Hypertension - Status Post-Knee Replacement with Nerv e Damage - Insomnia patient is seeing a psych med prescriber and therapist - Transient Ischemic Attack (TIA) - Past Anemia resolved, labs to be done today - Dermatological Concern (Black Spot) re vandana placed for [facility] evaluation - History of Atrial Fibrillation managed by Cardiology Patient Instructions - Continue with eye appointments and pre scribed ocular medications. - Follow recommendations from the urolog ist to manage bladder pain; avoid irritants. - Monitor blood pressure regularly, adhe re to antihypertensive medications. - Discuss sleep concerns during upcoming psychiatric session and consider modifications. - Arrange dermatological evaluation for the newly noted skin lesion. - Pursue scheduled hemoglobin check to c onfirm stability in blood health. - Contact can inspector for anticoagulati on management discussion. [facility] Medical History Memory loss, short term Carpal tunnel syndrome on both sides Cataract CHF exacerbation History of stroke Abnormal colonoscopy (~04/03/22) Wheezing Anemia Urinary incontinence Right carpal tunnel syndrome Post cardiotomy syndrome PTSD (post-traumatic stress disorder) Osteoarthritis, hip, bilateral Interstitial cystitis Lipid disorder Insomnia Generalized anxiety disorder with panic attacks Major depression, recurrent History of ulcerative colitis Chronic GERD Diastolic congestive heart failure Paroxysmal atrial fibrillation Age related osteoporosis Asthma, moderate persistent Anticoagulant long-term use Iron deficiency anemia Establishing care with new doctor, encounter for Hypertension, essential Surgical History Hx of tonsillectomy Hx of colonoscopy Hx of rotator cuff surgery History of arthroplasty of both knees Hx of hysterectomy Status post mitral valve replacement Status post aortic valve replacement History of kyphoplasty History of artificial heart valve Family History Daughter Mental health disorder Substance use disorder Father Emphysema lung Mother Heart disease Stroke Pacemaker Arthritis Family/Other Colon cancer Sister Crohn's disease Social History Household Members: Children Household Members Other:: son Housing: Apartment Are you a primary resident care supervisor to a significant other at home: No Do you presently have visiting nurse or other home services: No Alcohol intake: never Patient Tobacco Use Status: Former Tobacco user e-Cigarette/Vaping Use: Never Used Substance Use Type: Marijuana Advance Directives Date on File: 03/18/22 service: No Current occupational status: retired Cognitive needs: No Hearing needs: No Vision needs: Yes Questionnaire PHQ-9 Over the last 2 weeks, how often have you been bothered by any of the following problems? 1. Little interest or pleasure in doing things: several days 2. Feeling down, depressed, or hopeless: several days 3. Trouble falling or staying asleep, or sleeping too much: nearly every day 4. Feeling tired or having little energy: more than half the days 5. Poor appetite or overeating: not at all 6. Feeling bad about yourself - or that you are a failure or have let yourself or your family down: not at all 7. Trouble concentrating on things, such as reading the newspaper or watching television: not at all 8. Moving or speaking so slowly that other people could have noticed. Or the opposite - being so fidgety or restless that you have been moving around a lot more than usual: several days 9. Thoughts that you would be better off or of hurting yourself in some way: not at all Total score: 5 Depression Screening Interpretation: Negative Depression Screening Done: Yes 21901 - PHQ-9 Billing: Yes Source: Developed by Drs. Marco Antonio Diaz, Janeth Streeter, Alec Gayle and colleagues, with an educational lizett from [employer]. Thrive Questionnaire Date Thrive assessed: 08/26/23 I am a: Parent/Caregiver What is your living situation today?: I have a steady place to live Within the past 12 months, did the food you bought not last and you didn't have the money to get more?: I choose not to answer this question Within the past 12 months, did you worry whether your food would run out before you got money to buy more?: I choose not to answer this question Do you have trouble paying for medicines?: I choose not to answer this question Do you have trouble getting transportation to medical appointments?: I choose not to answer this question Do you have trouble paying your heating and electricity bill?: I choose not to answer this question Do you have trouble taking care of your child, family member or friend?: I choose not to answer this question Do you have trouble with day-to-day activities such as bathing, preparing meals, shopping, managing finances, etc.?: I choose not to answer this question Are you currently unemployed and looking for a job?: I choose not to answer this question Are you interested in more education?: I choose not to answer this question Please select the resources that you would like help with: None Currently or been in a relationship where the following occur: I choose not to answer THRIVE Score: 0 AUDIT C Alcohol Use Questionnaire (AUDIT-C) 1. How often do you have a drink containing alcohol?: Never Total Score: 0 GUANACO-7 AMB Questionnaire GUANACO-7 Date GUANACO - 7 assessed: 10/30/21 Feeling nervous, anxious, or on edge: 2 = More than half the days Not being able to stop or control worryin = Not at all Worrying too much about different things: 1 = Several days Trouble relaxin = Several days Being so restless that it is hard to sit still: 0 = Not at all Becoming easily annoyed or irritable: 1 = Several days Feeling afraid as if something awful might happen: 0 = Not at all Total GUANACO-7 score (0-4 normal; 5-9 mild; 10-14 moderate; 15-21 severe): 5 Source: Developed by Drs. Marco Antonio Diaz, Janeth Streeter, Alec Gayle and colleagues, with an educational lizett from [employer]. Review of Systems Const Denies chills and Denies fever(s) ENT Denies epistaxis and Denies nasal discharge Card Denies chest pain Resp Denies chest congestion, Denies cough and Denies hemoptysis GI Denies diarrhea and Denies nausea Skin/Breast Denies rash Neuro Reports no additional complaints Psych Reports no additional complaints Endo Reports no additional complaints Physical exam (Primary Care) Vital Signs: Last Vital Signs Pulse 54 04/20/24 13:04 BP 124/72 04/20/24 13:04 Pulse Ox 94 04/20/24 13:04 Oxygen Delivery Method Room Air 04/20/24 13:04 BMI result Body Mass Index 39.3 Tobacco/Smoking Status: Tobacco use Status Tobacco use date assessed 04/20/24 04/20/24 13:10 Patient Tobacco Use Status Former Tobacco user 04/20/24 13:10 e-Cigarette/Vaping Use Never Used 04/20/24 13:10 Depression Screening Interpretation: Negative Thrive Assessment: Date of Thrive Assessment Date Thrive assessed 08/26/23 04/20/24 13:10 Currently or been in a relationship where the following occur: I choose not to answer Const Other: Elderly female sitting in a wheelchair with her son General: cooperative, comfortable and no acute distress Orientation/consciousness: patient oriented x3 HENMT Head: Yes normocephalic Eyes General: appearance normal, both eyes and all related structures Neck Neck: Yes supple Resp Effort & Inspection: normal respiratory effort, no cough and no stridor Cardio Heart sounds: S1 normal heart sound present and S2 normal heart sound present Skin General skin exam: turgor normal Full body images: 2 1. 1 cm x 2 cm of long black mole Neuro General: patient oriented x3, tone normal and moves all extremities Coding Level of Care Code Est Pt Level 5 (58411) Diagnoses Change in nevus D22.9 Chronic hyponatremia E87.1 Nephropathy N28.9 Cardiomyopathy, unspecified type I42.9 Cardiomyopathy type: unspecified Paroxysmal atrial fibrillation I48.0 Morbid obesity due to excess calories E66.01 Ulcerative colitis with complication, unspecified location K51.787 Digestive disease complication type: unspecified complication Ulcerative colitis location: unspecified ulcerative colitis location Chronic anticoagulation Z79.01 Iron deficiency anemia, unspecified iron deficiency anemia type D50.9 Anemia type: iron deficiency Iron deficiency anemia type: unspecified iron deficiency Acute heart failure with preserved ejection fraction (HFpEF) I50.31 Additional Codes PHQ-9 - 31057 - PHQ-9 Billing: Yes ([id number]) Assessment & Plan Assessment & Plan (1) Change in nevus: Code(s): D22.9 - Melanocytic nevi, unspecified Category: Medical (2) Chronic hyponatremia: Code(s): E87.1 - Hypo-osmolality and hyponatremia Category: Medical (3) Nephropathy: Code(s): N28.9 - Disorder of kidney and ureter, unspecified Category: Medical (4) Cardiomyopathy: Code(s): I42.9 - Cardiomyopathy, unspecified Category: Medical Qualifiers: Cardiomyopathy type: unspecified Qualified Code(s): I42.9 - Cardiomyopathy, unspecified (5) Paroxysmal atrial fibrillation: Code(s): I48.0 - Paroxysmal atrial fibrillation Category: Medical (6) Morbid obesity due to excess calories: Code(s): E66.01 - Morbid (severe) obesity due to excess calories Category: Medical (7) Ulcerative colitis: Code(s): K51.90 - Ulcerative colitis, unspecified, without complications Category: Medical Qualifiers: Digestive disease complication type: unspecified complication U lcerative colitis location: unspecified ulcerative colitis location Qualified Code(s): K51.919 - Ulcerative colitis, unspecified with unspecified complications (8) Chronic anticoagulation: Code(s): 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.01 - 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 Category: Medical (9) Anemia: Code(s): D64.9 - Anemia, unspecified Category: Medical Qualifiers: Anemia type: iron deficiency Iron deficiency anemia type: unspecified iron deficiency Qualified Code(s): D50.9 - Iron deficiency anemia, unspecified (10) Acute heart failure with preserved ejection fraction (HFpEF): Code(s): I50.31 - Acute diastolic (congestive) heart failure Category: Medical Plan Chief Complaint New skin lesion evaluation Assessment and Plan 73-year-old female with a history of , essential hypertension, insomnia, and past transient ischemic attacks presenting with exacerbation of bladder pain and a new dermatological concern. The patient also reports recent knee-related discomfort following a past knee replacement with associated nerve damage. She expresses concerns about her recent episode of high blood pressure correlated with her TIA and past anemic status. The patient has a new finding of a dark skin lesion requiring further dermatological evaluation. 1. Past Anemia Patient previously anemic, now resolved. Will obtain hemoglobin levels to ensure stability. 2. Dermatological Concern Black Spot Noted 2 cm x 1 cm dark spot identified. Patient will contact [facility] for evaluation and follow-up as previously established patient. 3. Bladder Pain Patient reported recent exacerbation of bladder pain. She has had consultation with her urologist and is currently implementing suggested modifications. Reinforce adherence to prescribed management and lifestyle adjustments. 4. Insomnia Patient experiencing sleep disturbances; currently taking Doxepine with a transition from Ambien. Reassess sleep regimen and discuss with psychiatrist during upcoming session. 5. Transient Ischemic Attack Tia Previous TIA correlated with acute hypertension. Consider discussing anticoagulation strategy with the can inspector to determine further management. 6. Essential Hypertension The patient experienced an episode of severely elevated blood pressure requiring hospital treatment. Blood pressure management to be closely monitored; continue current medications. 7. Status Post-Knee Replacement With Nerve Damage Patient experiencing chronic knee pain managed with Naproxen after being cleared from anticoagulants. Reinforce continued use of alleviating medications while monitoring for gastrointestinal tolerance. Problem List - Bladder Pain managed by Urology - Essential Hypertension - Status Post-Knee Replacement with Nerve Damage - Insomnia patient is seeing a psych med prescriber and therapist - Transient Ischemic Attack (TIA) - Past Anemia resolved, labs to be done today - Dermatological Concern (Black Spot) referral placed for [facility] evaluation - History of Atrial Fibrillation managed by Cardiology Patient Instructions - Continue with eye appointments and prescribed ocular medications. - Follow recommendations from the urologist to manage bladder pain; avoid irritants. - Monitor blood pressure regularly, adhere to antihypertensive medications. - Discuss sleep concerns during upcoming psychiatric session and consider modifications. - Arrange dermatological evaluation for the newly noted skin lesion. - Pursue scheduled hemoglobin check to confirm stability in blood health. - Contact can inspector for anticoagulation management discussion. 45 minute appointment mostly [id number] with the patient and her son, as she wanted to discuss her numerous medical problems and give me the updated history Orders: Orders 2 Comprehensive Met. 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 Complete Blood Count Auto Diff Today E66.01 - Morbid (severe) obesity due to excess calories, E87.1 - Hypo-osmolality and hyponatremia, I42.9 - Cardiomyopathy, unspecified, I48.0 - Paroxysmal atrial fibrillation, K51.919 - Ulcerative colitis, unspecified with unspecified complications, N28.9 - Disorder of kidney and ureter, unspecified, Z79.01 - 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
== END 2024-04-20 14:21 | disposition home or self-care (01) ==
PROVIDERS: PCP Internal Medicine; Visit Provider Internal Medicine
DX: I50.31 Acute diastolic (congestive) heart failure (principal); I42.9 Cardiomyopathy, unspecified; I48.0 Paroxysmal atrial fibrillation; K51.919 Ulcerative colitis, unspecified with unspecified complications; E66.01 Morbid (severe) obesity due to excess calories; D22.9 Melanocytic nevi, unspecified; E87.1 Hypo-osmolality and hyponatremia; N28.9 Disorder of kidney and ureter, unspecified; Z79.01 Long term (current) use of anticoagulants; D50.9 Iron deficiency anemia, unspecified; Z68.39 Body mass index [BMI] 39.0-39.9, adult

== ENCOUNTER 2024-04-20 13:02 | Outpatient (REF) | payer MEDICARE, MEDICAID, SELFPAY ==
[2024-04-20 16:15] LABS: MANUAL DIFF FLAG NO
[2024-04-20 16:22] LABS: Basophils Absolute Auto 0.1 X10*3/uL (0.0-0.2); Basophils Percent Auto 0.6 % (0-2); Eosinophils Absolute Auto 0.3 X10*3/uL (0.0-0.4); Eosinophils Percent Auto 3.2 % (0-4); Hematocrit 39.1 % (37.0-47.0); Hemoglobin 12.9 g/dl (12.0-16.0); Imm Gran Abs Auto 0.03 X10*3/uL (0.00-0.03); Imm Gran Pct Auto 0.3 % (0.0-0.4); Lymphocytes Absolute Auto 1.1 X10*3/uL (1.2-4.9); Lymphocytes Percent Auto 11.5 % (20-40); Mean Corpuscular Hemoglobin 28.8 pg (27.0-33.0); Mean Corpuscular Volume 87.3 fL (80.0-98.0); Mean Platelet Volume 11.2 fL (9.4-12.3); Monocytes Absolute Auto 0.6 X10*3/uL (0.1-1.2); Monocytes Percent Auto 5.9 % (2-11); Neutrophils Absolute Auto 7.8 x10*3/uL (2.0-8.3); Neutrophils Percent Auto 78.5 % (45-73); Platelet Count 208 X10*3/uL (160-400); Red Blood Count 4.48 X10*6/uL (4.20-5.50); Red Cell Distribution Width 12.8 % (11.0-16.0); White Blood Count 9.9 X10*3/uL (4.8-10.8)
[2024-04-20 16:40] LABS: Alanine Aminotransferase 15 U/L (0-31); Albumin Level 3.9 g/dL (3.5-5.0); Alkaline Phosphatase 89 U/L (39-117); Anion Gap 15 (12-20); Aspartate Amino Transferase 18 U/L (5-31); Bilirubin Total 0.4 mg/dL (0.0-1.0); Blood Urea Nitrogen 15 mg/dL (9-16); Carbon Dioxide 26 mmol/L (22-29); Chloride 100 mmol/L (96-108); Estimated Glomerular Filt Rate > 60; Glucose Random 143 mg/dL (60-115); Potassium 4.6 mmol/L (3.3-5.1); Sodium 136 mmol/L (135-145); Total Protein 6.4 g/dL (6.5-8.0)
[2024-04-20 16:57] LABS: Ferritin 99 ng/mL (10-250)
[2024-04-22 15:33] LABS: LDL Cholesterol Direct 43 mg/dL (<100)
== END 2024-04-20 13:03 | disposition home or self-care (01) ==
LOC: HO.HMGCLDS 13:02
PROVIDERS: PCP Internal Medicine; Visit Provider Internal Medicine
DX: D22.9 Melanocytic nevi, unspecified (principal); E87.1 Hypo-osmolality and hyponatremia; N28.9 Disorder of kidney and ureter, unspecified; I42.9 Cardiomyopathy, unspecified; I48.0 Paroxysmal atrial fibrillation; E66.01 Morbid (severe) obesity due to excess calories; K51.919 Ulcerative colitis, unspecified with unspecified complications; D50.9 Iron deficiency anemia, unspecified; I11.0 Hypertensive heart disease with heart failure; I50.31 Acute diastolic (congestive) heart failure; R39.89 Other symptoms and signs involving the genitourinary system; G47.00 Insomnia, unspecified; Z86.73 Personal history of transient ischemic attack (TIA), and cerebral infarction without residual deficits; Z79.01 Long term (current) use of anticoagulants; Z96.659 Presence of unspecified artificial knee joint
CPT/HCPCS: 36415; 80053; 82728; 83721; 85025; 96127; 99212

== ENCOUNTER 2024-05-20 15:58 | Outpatient (REF) | payer MEDICARE, MEDICAID, SELFPAY ==
--- OUTSIDE RECORDS SUMMARY | 2024-05-20 16:00 | XMS_ITS ---
Author Organization [facility] Address [address] [place] [address] Care Team Providers Care Preventive Medicine Specialist Name Role Phone Herson ALANIS, [facility] Primary [facility] Provider Mona Cunningham Jr, Ramses Emmanuel [phone] REASON FOR VISIT ulcerative colitis Encounters Encounter Location Date Provider Diagnosis [facility] [address] [place] [address] 04/14/2024 Ramses Cunningham Jr PLAN OF TREATMENT Next Appt Details Provider Name:Ramses schmidt Jr, 03/30/2025 03:35:00 PM, [address] [place] [address], [address], [place], [address],
--- OUTSIDE RECORDS SUMMARY | 2024-05-20 16:00 | XMS_ITS ---
Author Organization [facility] Address [address] [place] [address] Care Team Providers Care Telegraph Office Telephone Clerk Name Role Phone Herson ALANIS, [facility] Primary [facility] Provider Mona Cunningham Jr, Ramses Emmanuel [phone] REASON FOR VISIT Patient presents today for gerd, ulcerative pancolitis Encounters Encounter Location Date Provider Diagnosis [facility] [address] [place] [address] 01/21/2024 Ramses Cunningham Jr PLAN OF TREATMENT Next Appt Details Provider Name:Ramses schmidt Jr, 03/30/2025 03:35:00 PM, [address] [place] [address], [address], [place], [address],
--- OUTSIDE RECORDS SUMMARY | 2024-05-20 16:00 | XMS_ITS ---
Author Organization [facility] Address [address] [place] [address] Care Team Providers Care Noise Tester Name Role Phone Herson ALANIS, [facility] Primary Care Provider Ramses Navarro Jr Unavailable ALLERGIES Allergen (clinical drug ingredient) Drug/Non Drug Allergy documented on EMR Reaction Allergy Type Onset Date Status niacin Niacin Unknown Drug Allergy Active Adhesive Unknown Allergy Active REASON FOR VISIT Patient presents today for gerd, ulcerative MEDICATIONS Medication SIG (Take, Route, Frequency, Duration) Notes Start Date End Date Status Gemtesa 75 MG TAKE ONE TABLET BY MOUTH EVERY DAY Oral for 90 Active Solifenacin Succinate 10 MG TAKE ONE TAB LET BY MOUTH EVERY DAY Oral for 90 Active FeroSul 325 (65 Fe) MG TAKE ONE TABLET B Y MOUTH TWICE A DAY Oral for 90 Active LORazepam 1 MG TAKE ONE AND ONE-ANDERSON F TABLETS BY MOUTH ONCE A DAY NEEDED. AVOID ALCOHOL,DRIVING OR NARCOTICS WHEN TAKING THIS MEDICATION. Oral for 30 Active Trimethoprim 100 MG Oral for 90 Active Vitamin D 50 MCG (2000 UT) 1 tablet Oral ly Once a day for 30 day(s) Active Escitalopram Oxalate 5 MG Oral for 90 Active Simvastatin 40 MG TAKE ONE TABLET BY MOUTH DAILY AT BEDTIME Oral for 90 Active Vitamin C 1000 MG TAKE ONE TABLET BY MOUTH EVERY DAY Oral for 90 Active Metoprolol Tartrate 100 MG 1 tablet with food Orally Twice a day for 30 day(s) Active zocor 1 tab Oral for 14 days Active VESIcare 10 MG 1 tablet Orally Once a day Active Losartan Potassium 25 MG 1 tablet Orally Once a day for 30 day(s) Active Lexapro 20 MG 1 tablet Orally Once a day for 30 day(s) Active Vitamin B Complex - as directed Orally Active Potassium Chloride 10 MEQ as directed Or ally Once a day Active Magnesium 250 MG 1 tablet with a meal Orally Once a day for 30 day(s) Active Gabapentin 400 MG 1 tablet Orally Once a day Active Acidophilus - as directed Orally Active Ativan 1 MG 1 tablet at bedtime as needed Orally Once a day Active Iron (Ferrous Sulfate) 325 (65 Fe) MG 1 tablet Orally Three times a Week for 30 day(s) Active Doxepin HCl 25 MG 1 capsule at bedtime Orally Once a day for 30 day(s) Active Biotin 2.5 MG 1 tablet Orally Once a day for 30 day(s) Active Myrbetriq Active Dexlansoprazole 30 MG take one capsule b y mouth every day for 90 days Active Nebulizer Active Breo Ellipta Active Methenamine Hippurate Active Torsemide 40 MG 1 tablet Orally Once a day Active IMMUNIZATIONS Vaccine Route Administration Date Status Comme nts Influenza Unknown 03/28/2024 Refused SOCIAL HISTORY Tobacco Use: Social History Observation Description Date Details (start date - stop date) Former Smoker NA - NA Sex Assigned At : Social History Observation Description Sex Assigned At Unknown Tobacco Use/Smoking Question Answer Notes Patient is a former smoker How long has it been since you last smoked? > 10 years Alcohol Screen Question Answer Notes Did you have a drink containing alcohol in the p ast year? No Points 0 Interpretation Negative VITAL SIGNS BMI 39.06 kg/m2 03/28/2024 Blood pressure systolic 000 mm Hg 03/28/20 24 Blood pressure diastolic 00 mm Hg 024 Height 60 in 03/28/2024 Temperature 97.7 degrees Fahrenheit 03/28/20 24 Weight 200 lbs 03/28/2024 Encounters Encounter Location Date Provider Diagnosis [facility] [address] [place] [phone] 03/28/2024 Ramses Cunningham Jr Gastroesophageal reflux disease without esophagitis K21.9 and Ulcerative pancolitis without complication K51.00 ASSESSMENTS Encounter Date Diagnosis Assessment Notes Treatment Notes Treatment Clinical Notes 03/28/2024 Gastroesophageal reflux disease without esophagitis (ICD-10 - K21.9) Gastroesophageal reflux disease material was printed 03/28/2024 Ulcerative pancoliti s without complication (ICD-10 - K51.00) PLAN OF TREATMENT Medication Medication Name Sig Start Date Stop Date Notes Dexlansoprazole 30 MG take one capsule b y mouth every day for 90 days Treatment Notes Assessment Notes Gastroesophageal reflux dise ase without esophagitis Gastroesophageal reflux disease material was printed Next Appt Details Follow Up: 1 Year, Reason: Provider Name:Ramses schmidt Jr, 03/30/2025 03:35:00 PM, [address] [place] [address], [address], [place], [address],
--- OUTSIDE RECORDS SUMMARY | 2024-05-20 16:00 | XMS_ITS | Patient Health Record ---
Author Organization [facility] Address [address] [place] [address] Care Team Providers Care Ship Mate Name Role Phone Herson ALANIS, [facility] Primary [facility] Provider Ramses Navarro Jr Unavailable [phone] ALLERGIES Allergen (clinical drug ingredient) Drug/Non Drug Allergy documented on EMR Reaction Allergy Type Onset Date Status niacin Niacin Unknown Drug Allergy Active Adhesive Unknown Allergy Active RESULTS Component Value Reference Range Notes Complete Blood Count no Diff Reviewed date:08/28/2023 04:39:30 PM Interpretation: Performing Lab:[facility], [address] [place] [phone] Notes/Report: Vein blew easily BEECHEC White Blood Count 6.7 4.8-10.8 X10*3/uL Red Blood Count 3.82 4.20-5.50 X10*6/uL Hemoglobin 10.4 12.0-16.0 g/dl Hematocrit 32.9 37.0-47.0 % Mean Corpuscular Volume 86.1 80.0-98.0 fL Mean Corpuscular Hemoglobin 27.2 27.0-33.0 pg Mean Corpuscular HGB Conc 31.6 31.0-35.0 g/dl Red Cell Distribution Width 12.8 11.0-16.0 % Platelet Count 222 160-400 X10*3/uL Mean Platelet Volume 9.4 9.4-12.3 fL NRBC Pct Auto 0.0 0.0-0.2 /100WBC NRBC Abs Auto 0.000 0.0-0.012 X10*3/uL Prothrombin Time INR Reviewed date:08/28/2023 04:39:15 PM Interpretation: Performing Lab:[facility], [address] [place] [phone] Notes/Report: Vein blew easily BEECHEC Prothrombin Time 14.1 11.1-13.3 SEC INTERNATIONAL NORM RATIO 1.2 0.9-1.1 INTERNATIONAL NORMALIZED RATIO (INR) REFERENCE RANGES Reference Range For patients not on anticoagulant therapy: 0.9 - 1.1 INR ranges for oral anticoagulant therapy: For prevention and treatment of venous thrombosis and pulmonary embolism: 2.0 - 3.0 For acute myocardial infarction with aspirin therapy: 2.0 - 3.0 For acute myocardial infarction without aspirin therapy: 3.0 - 4.0 For patients with mechanical prosthetic heart valves: 2.5 - 3.5 Pathology Reviewed date:09/03/2023 09:48:12 AM Interpretation: Performing Lab:[facility], [address] [place] [phone] Notes/Report: Hold Green Gel Reviewed date:08/28/2023 04:39:23 PM Interpretation: Performing Lab:[facility], [address] [place] [phone] Notes/Report: Hold Green Gel See Note Specimen held untested for 24 hours; Call to request Chemistry testing. Hold Lav - Possible Hematolo gy Reviewed date:09/03/2023 09:36:57 AM Interpretation: Performing Lab:[facility], [address] [place] [phone] Notes/Report: Hold Lav - Possible Hematology SEE NOTE Specimen will be held untested for 8 hours. Call Hematology if testing is desired. Prothrombin Time INR Reviewed date:09/03/2023 09:36:51 AM Interpretation: Performing Lab:[facility], [address] [place] [phone] Notes/Report: Prothrombin Time 13.7 11.1-13.3 SEC INTERNATIONAL NORM RATIO 1.1 0.9-1.1 INTERNATIONAL NORMALIZED RATIO (INR) REFERENCE RANGES Reference Range For patients not on anticoagulant therapy: 0.9 - 1.1 INR ranges for oral anticoagulant therapy: For prevention and treatment of venous thrombosis and pulmonary embolism: 2.0 - 3.0 For acute myocardial infarction with aspirin therapy: 2.0 - 3.0 For acute myocardial infarction without aspirin therapy: 3.0 - 4.0 For patients with mechanical prosthetic heart valves: 2.5 - 3.5 Hold Green Gel Reviewed date:09/03/2023 09:37:02 AM Interpretation: Performing Lab:[facility], [address] [place] [phone] Notes/Report: Hold Green Gel See Note Specimen held untested for 24 hours; Call to request Chemistry testing. Complete Blood Count no Diff Reviewed date:09/03/2023 09:41:18 AM Interpretation: Performing Lab:[facility], [address] [place] [phone] Notes/Report: White Blood Count 8.1 4.8-10.8 X10*3/uL Red Blood Count 4.08 4.20-5.50 X10*6/uL Hemoglobin 11.2 12.0-16.0 g/dl Hematocrit 34.4 37.0-47.0 % Mean Corpuscular Volume 84.3 80.0-98.0 fL Mean Corpuscular Hemoglobin 27.5 27.0-33.0 pg Mean Corpuscular HGB Conc 32.6 31.0-35.0 g/dl Red Cell Distribution Width 12.6 11.0-16.0 % Platelet Count 226 160-400 X10*3/uL Mean Platelet Volume 10.3 9.4-12.3 fL NRBC Pct Auto 0.0 0.0-0.2 /100WBC NRBC Abs Auto 0.000 0.0-0.012 X10*3/uL Prothrombin Time INR Reviewed date:09/03/2023 09:39:51 AM Interpretation: Performing Lab:[facility], [address] [place] [phone] Notes/Report: Prothrombin Time 13.2 11.1-13.3 SEC INTERNATIONAL NORM RATIO 1.1 0.9-1.1 INTERNATIONAL NORMALIZED RATIO (INR) REFERENCE RANGES Reference Range For patients not on anticoagulant therapy: 0.9 - 1.1 INR ranges for oral anticoagulant therapy: For prevention and treatment of venous thrombosis and pulmonary embolism: 2.0 - 3.0 For acute myocardial infarction with aspirin therapy: 2.0 - 3.0 For acute myocardial infarction without aspirin therapy: 3.0 - 4.0 For patients with mechanical prosthetic heart valves: 2.5 - 3.5 Basic Metabolic Panel Reviewed date:09/03/2023 09:39:22 AM Interpretation: Performing Lab:[facility], [address] [place] [phone] Notes/Report: Sodium 133 135-145 mmol/L Potassium 3.4 3.3-5.1 mmol/L Chloride 94 96-108 mmol/L Carbon Dioxide 29 22-29 mmol/L Anion Gap 13 12-20 Blood Urea Nitrogen 12 9-16 mg/dL Creatinine 0.79 0.5-1.4 mg/dL Estimated Glomerular Filt Rate > 60 NOTE: For -Belgian individuals, multiply the result by 1.210. Chronic Kidney Disease: Estimated GFR < 60 mL/min/1.73m2 Severe Kidney Disease: Estimated GFR < 15 mL/min/1.73m2 Glucose Random 80 60-115 mg/dL Calcium 8.9 8.4-10.2 mg/dL REASON FOR REFERRAL No Information MEDICATIONS Medication SIG (Take, Route, Frequency, Duration) Notes Start Date End Date Status Vitamin B Complex - as directed Orally Active Biotin 2.5 MG 1 tablet Orally Once a day for 30 day(s) Active Potassium Chloride 10 MEQ as directed Or ally Once a day Active Magnesium 250 MG 1 tablet with a meal Orally Once a day for 30 day(s) Active Gabapentin 400 MG 1 tablet Orally Once a day Active Acidophilus - as directed Orally Active Losartan Potassium 25 MG 1 tablet Orally Once a day for 30 day(s) Active Lexapro 20 MG 1 tablet Orally Once a day for 30 day(s) Active Dexlansoprazole 30 MG take one capsule b y mouth every day for 90 days Active Metoprolol Tartrate 100 MG 1 tablet with food Orally Twice a day for 30 day(s) Active zocor 1 tab Oral for 14 days Active VESIcare 10 MG 1 tablet Orally Once a day Active Ativan 1 MG 1 tablet at bedtime as needed Orally Once a day Active Trimethoprim 100 MG Oral for 90 Active Vitamin D 50 MCG (1999 UT) 1 tablet Oral ly Once a day for 30 day(s) Active Nebulizer Active Escitalopram Oxalate 5 MG Oral for 90 Active Breo Ellipta Active Simvastatin 40 MG TAKE ONE TABLET BY MOUTH DAILY AT BEDTIME Oral for 90 Active Methenamine Hippurate Active Vitamin C 1000 MG TAKE ONE TABLET BY MOUTH EVERY DAY Oral for 90 Active Myrbetriq Active Torsemide 40 MG 1 tablet Orally Once a day Active LORazepam 1 MG TAKE ONE AND ONE-ANDERSON F TABLETS BY MOUTH ONCE A DAY NEEDED. AVOID ALCOHOL,DRIVING OR NARCOTICS WHEN TAKING THIS MEDICATION. Oral for 30 Active Gemtesa 75 MG TAKE ONE TABLET BY MOUTH EVERY DAY Oral for 90 Active Solifenacin Succinate 10 MG TAKE ONE TAB LET BY MOUTH EVERY DAY Oral for 90 Active Iron (Ferrous Sulfate) 325 (65 Fe) MG 1 tablet Orally Three times a Week for 30 day(s) Active Doxepin HCl 25 MG 1 capsule at bedtime Orally Once a day for 30 day(s) Active FeroSul 325 (65 Fe) MG TAKE ONE TABLET B Y MOUTH TWICE A DAY Oral for 90 Active IMMUNIZATIONS Vaccine Route Administration Date Status [...] ast year? No Points 0 Interpretation Negative PROBLEMS Problem Type ICD Code Onset Dates Problem Status W/U Status Risk SNOMED Code Notes Problem Other abnormal and inconclusive findings on diagnostic imaging of breast (R92.8) Active confirmed Abnormal findings on diagnostic imaging of breast (876617983) Problem Ulcerative pancolitis with abscess (K51.014) Active confirmed [id number] Problem Colon cancer screening (Z12.11) Active confirmed 662267398 Problem Ulcerative pancolitis without complication (K51.00) Active confirmed 094567619 Problem Gastroesophageal reflux disease without esophagitis (K21.9) Active confirmed [id number] Problem Gastric polyp (K31.7) Active confirmed Gastric polyp (80129912) VITAL SIGNS Temperature 97.7 degrees Fahrenheit 03/28/2024 Blood pressure diastolic 00 mm Hg 03/28/2024 Height 60 in 03/28/2024 Blood pressure systolic 000 mm Hg 03/28/2024 Weight 200 lbs 03/28/2024 BMI 39.06 kg/m2 03/28/2024 Encounters Encounter Location Date Provider Diagnosis [facility] [address] [place] [phone] 08/28/2023 Ramses Cunningham Jr [facility] [address] [place] [phone] 04/14/2024 Ramses Cunningham Jr [facility] [address] [place] [phone] 01/14/2024 Ramses Cunningham Jr [facility] [address] [place] [phone] 01/21/2024 Ramses Cunningham Jr [facility] [address] [place] [phone] 03/28/2024 Ramses Cunningham Jr Gastroesophageal reflux disease without esophagitis K21.9 and Ulcerative pancolitis without complication K51.00 [facility] [address] [place] [phone] 08/28/2023 Ramses Cunningham Jr [facility] [address] [place] [phone] 09/03/2023 Ramses Cunningham Jr [facility] [address] [place] [phone] 09/03/2023 Ramses Cunningham Jr ASSESSMENTS Encounter Date Diagnosis Assessment Notes Treatment Notes Treatment Clinical Notes 03/28/2024 Gastroesophageal reflux disease without esophagitis (ICD-10 - K21.9) Gastroesophageal reflux disease material was printed 03/28/2024 Ulcerative pancoliti s without complication (ICD-10 - K51.00) PLAN OF TREATMENT Next Appt Details Provider Name:Ramses schmidt Jr, 03/30/2025 03:35:00 PM, [address] [place] [address], Suite [facility], [place], [address], Insurance Providers Payer Name Payer Address Payer Phone Subscriber Number Group Number Insured Name Patient Relationship to Insured Coverage Start Date Coverage End Date [place]ARE OF [place] [address] [place] [id number] [phone] [id number] RU PEREZ Self - patient is the insured MEDICAID OF [facility] [address] [place] [address] [id number] [employer] Self - patient is the insured MEDICAL (GENERAL) HISTORY Medical History History ICD Code Anemia CHF Ulcerative colitis Interstitial cystitis Compression fractures Depression/anxiety/PTSD Hypertension Hyperlipidemia Interstitial cystitis Osteoporosis/osteoarthritis Bone spurs Achilles tendinitis Bursitis GERD with erosive esophagitis and hiatal hernia Diastases recti Diverticulosis Thyroid nodules Sinus problems Hearing-impaired EGD in 04/15, normal duodenal biopsies Colonoscopy 04/15 colon poly ps, post polypectomy bleed, hemostatic therapy with epinephrine/gold probe/clip placement TIA macular degeneration asthma L sinus defect intraoral fistula caused by tooth extraction Surgical History Surgery Date(Month/Year) Hysterectomy Mastoidectomy x2 , 01/26 Rotator cuff repair right shoulder 10/30 Bilateral knee replacements 12/31 Left eye surgery , 01/04 Basal cell carcinoma nose 06/07 Kyphoplasty 04/09 Bioprosthetic aortic and mitral valve re placement 02/18/18 Thoracostomy/pleural effusion 03/11/18 cataracts in both eyes
[2024-05-20 16:08] LABS: Appearance Urine Clear; Glucose Urine UA 100 mg/dL (Negative); Leukocyte Esterase Urine Large (3+) (Negative); Nitrite Urine Positive (Negative); UMIC TRIGGER UA YES; Urine Blood Trace (Negative); Urine Ketones Negative (Negative); Urine Protein 30 (1+) mg/dL (Neg-Trace)
[2024-05-20 16:22] LABS: Color Urine Dark Yellow; WBC Urine 21-50 /HPF (0-5)
[2024-05-20 16:23] LABS: Bacteria Urine 1+ (None Seen); Hyaline Casts Urine 0-2 /LPF (0-2); RBC Urine 0-2 /HPF (0-2); Squamous Epithelial Cell Urine 0-2 /HPF (0-2)
== END 2024-05-20 15:59 | disposition home or self-care (01) ==
LOC: HO.LNP 15:58
PROVIDERS: Visit Provider Nurse Practitioner Family
DX: N39.0 Urinary tract infection, site not specified (principal)
CPT/HCPCS: 81001; 87086

== ENCOUNTER 2024-07-05 15:28 | Outpatient (REF) | payer MEDICARE, MEDICAID, SELFPAY ==
[2024-07-05 15:35] LABS: Appearance Urine Cloudy; Color Urine Dark Yellow; Glucose Urine UA Negative (Negative); Leukocyte Esterase Urine Large (3+) (Negative); Nitrite Urine Negative (Negative); Specific Gravity - Urine 1.015 (1.005-1.025); UMIC TRIGGER UA YES; Urine Blood Negative (Negative); Urine Ketones Negative (Negative); Urine Protein Trace mg/dL (Neg-Trace)
[2024-07-05 15:46] LABS: Bacteria Urine 2+ (None Seen); Hyaline Casts Urine 0-2 /LPF (0-2); RBC Urine 0-2 /HPF (0-2); WBC Urine >50 /HPF (0-5)
--- OUTSIDE RECORDS SUMMARY | 2024-07-05 16:06 | XMS_ITS ---
Author Organization [facility] Address Unknown Allergies, Adverse Reactions, Alerts Substance Reaction Status Noted Date Resolved Date Lactose Intolerant active 01/30/2021 Adhesive Tape active 01/24/2021 Problems Problem Status Start Date End Date UNILATERAL PRIMARY OSTEOARTH RITIS, LEFT KNEE (Primary) (M17.12 - ICD-10-CM) ACTIVE 01/24/2021 CONTUSION OF RIGHT KNEE, SEQUELA (S80.01XS - ICD-10-CM ) ACTIVE 01/24/2021 UNSPECIFIED FALL, SEQUELA (W19.XXXS - ICD-10-CM) ACTIV E 01/24/2021 WEDGE COMPRESSION FRACTURE O F T11-T12 VERTEBRA, SUBSEQUENT ENCOUNTER FOR FRACTURE WITH ROUTINE HEALING (S22.080D - ICD-10-CM) ACTIVE 01/24/2021 POST-TRAUMATIC STRESS DISORD ER, UNSPECIFIED (F43.10 - ICD-10-CM) ACTIVE 01/24/2021 UNSPECIFIED DIASTOLIC (CONGE STIVE) HEART FAILURE (I50.30 - ICD-10-CM) ACTIVE 01/24/2021 ULCERATIVE COLITIS, UNSPECIF IED, WITHOUT COMPLICATIONS (K51.90 - ICD-10-CM) ACTIVE 01/24/2021 MORBID (SEVERE) OBESITY DUE TO EXCESS CALORIES (E66.01 - ICD-10-CM) ACTIVE 01/24/2021 WEAKNESS (R53.1 - ICD-10-CM) ACTIVE 01/24/2021 DIFFICULTY IN WALKING, NOT E LSEWHERE CLASSIFIED (R26.2 - ICD-10-CM) ACTIVE 01/24/2021 ACUTE AND SUBACUTE INFECTIVE ENDOCARDITIS (I33.0 - ICD-10-CM) ACTIVE 01/24/2021 ESSENTIAL (PRIMARY) HYPERTENSION (I10 - ICD-10-CM) ACT BRAULIO 01/24/2021 ANXIETY DISORDER, UNSPECIFIED (F41.9 - ICD-10-CM) ACTI VE 01/24/2021 MAJOR DEPRESSIVE DISORDER, S NGOC EPISODE, UNSPECIFIED (F32.9 - ICD-10-CM) ACTIVE 01/24/2021 HEART FAILURE, UNSPECIFIED (I50.9 - ICD-10-CM) ACTIVE 01/24/2021 GASTRO-ESOPHAGEAL REFLUX DIS EASE WITHOUT ESOPHAGITIS (K21.9 - ICD-10-CM) ACTIVE 01/24/2021 INSOMNIA, UNSPECIFIED (G47.00 - ICD-10-CM) ACTIVE 01/24/2021 PAROXYSMAL ATRIAL FIBRILLATION (I48.0 - ICD-10-CM) ACT BRAULIO 01/24/2021 OTHER ASTHMA (J45.998 - ICD-10-CM) ACTIVE 2020 HYPERLIPIDEMIA, UNSPECIFIED (E78.5 - ICD-10-CM) ACTIVE 01/24/2021 Encounters Encounter Performer Performer Role Encounter Diagnoses Location Date Discharge - Discharged to home or self care - Private home/apt. with home health services [facility] 01/24/2021 09:54 pm EDT - 01/31/2021 02:00 pm EDT Immunizations Vaccine Date SARS-COV-2 (COVID-19) 09/24/2020 12:00 a m EDT SARS-COV-2 (COVID-19) 08/27/2020 12:00 a m EDT Social History
--- OUTSIDE RECORDS SUMMARY | 2024-07-05 16:06 | XMS_ITS ---
Author Organization [facility] Address [address] [place] [address] Care Team Providers Care Medicinal Plant Picker Name Role Phone Herson ALANIS, [facility] Primary Care Provider Ramses Navarro Jr Unavailable [phone] ALLERGIES Allergen (clinical drug ingredient) Drug/Non Drug [...] 03/28/2024 Encounters Encounter Location Date Provider Diagnosis [facility] [address] [place] [phone] 03/28/2024 Ramses Cunningham Jr Gastroesophageal reflux disease [...] Provider Name:Ramses schmidt Jr, 03/30/2025 03:35:00 PM, [address] [place] [address], [address], [place], [address],
--- OUTSIDE RECORDS SUMMARY | 2024-07-05 16:06 | XMS_ITS | Patient Health Record ---
Author Organization [facility] Address [address] [place] [address] Care Team Providers Care Painter Drum Name Role Phone Herson ALANIS, [facility] Primary Care Provider Ramses Navarro Jr Unavailable ALLERGIES Allergen (clinical drug ingredient) Drug/Non Drug Allergy documented on EMR Reaction Allergy Type Onset Date Status niacin Niacin Unknown Drug Allergy Active Adhesive Unknown Allergy Active RESULTS Component Value Reference Range Notes Complete Blood Count no Diff Reviewed date:08/28/2023 04:39:30 PM Interpretation: Performing Lab:[facility], [address] [place] [phone] Notes/Report: Vein blew easily BEECHEC White Blood [...] INR Reviewed date:08/28/2023 04:39:15 PM Interpretation: Performing Lab:[facility], [address] [place] [phone] Notes/Report: Vein blew easily BEECHEC Prothrombin Time [...] Pathology Reviewed date:09/03/2023 09:48:12 AM Interpretation: Performing Lab:[facility], [address] [place] [phone] Notes/Report: Hold Green Gel Reviewed date:08/28/2023 04:39:23 PM Interpretation: Performing Lab:[facility], [address] [place] [phone] Notes/Report: Hold Green Gel See Note Specimen held untested for 24 hours; Call to request Chemistry testing. Hold Lav - Possible Hematolo gy Reviewed date:09/03/2023 09:36:57 AM Interpretation: Performing Lab:[facility], [address] [place] [phone] Notes/Report: Hold Lav - Possible Hematology SEE NOTE Specimen will be held untested for 8 hours. Call Hematology if testing is desired. Prothrombin Time INR Reviewed date:09/03/2023 09:36:51 AM Interpretation: Performing Lab:[facility], [address] [place] [phone] Notes/Report: Prothrombin Time 13.7 11.1-13.3 SEC INTERNATIONAL [...] Gel Reviewed date:09/03/2023 09:37:02 AM Interpretation: Performing Lab:[facility], [address] [place] [phone] Notes/Report: Hold Green Gel See Note Specimen held untested for 24 hours; Call to request Chemistry testing. Complete Blood Count no Diff Reviewed date:09/03/2023 09:41:18 AM Interpretation: Performing Lab:[facility], [address] [place] [phone] Notes/Report: White Blood Count 8.1 4.8-10.8 X10*3/uL [...] INR Reviewed date:09/03/2023 09:39:51 AM Interpretation: Performing Lab:[facility], [address] [place] [phone] Notes/Report: Prothrombin Time 13.2 11.1-13.3 SEC INTERNATIONAL [...] Panel Reviewed date:09/03/2023 09:39:22 AM Interpretation: Performing Lab:[facility], [address] [place] [phone] Notes/Report: Sodium 133 135-145 mmol/L Potassium 3.4 3.3-5.1 mmol/L Chloride 94 96-108 mmol/L Carbon Dioxide 29 22-29 mmol/L Anion Gap 13 12-20 Blood Urea Nitrogen 12 9-16 mg/dL Creatinine 0.79 0.5-1.4 mg/dL Estimated Glomerular Filt Rate > 60 NOTE: For -Naur[place] individuals, multiply the result by 1.210. Chronic [...] Abnormal findings on diagnostic imaging of breast (178685278) Problem Ulcerative pancolitis with abscess (K51.014) Active confirmed 555637180 Problem Colon cancer screening (Z12.11) Active confirmed 538979566 Problem Ulcerative pancolitis without complication (K51.00) Active confirmed 243193851 Problem Gastroesophageal reflux disease without esophagitis (K21.9) Active confirmed 590988884 Problem Gastric polyp (K31.7) Active confirmed Gastric polyp (91379101) VITAL SIGNS Temperature 97.7 degrees Fahrenheit 03/28/2024 Blood pressure diastolic 00 mm Hg 03/28/2024 Height 60 in 03/28/2024 Blood pressure systolic 000 mm Hg 03/28/2024 Weight 200 lbs 03/28/2024 BMI 39.06 kg/m2 03/28/2024 Encounters Encounter Location Date Provider Diagnosis [facility] Inpatient [address] [place], [place] [phone] 08/28/[address] [facility] [address] [place] [phone] 04/14/[address] [facility] [address] [place] [phone] 01/14/[address] [facility] [address] [place] [phone] 01/21/[address] [facility] [address] [place] [phone] 03/28/2024 Ramses Cunningham Jr Gastroesophageal reflux disease without esophagitis K21.9 and Ulcerative pancolitis without complication K51.00 [facility] [address] [place] [phone] 08/28/[address] [facility] [address] [place] [phone] 09/03/[address] [facility] [address] [place] [phone] 09/03/2023 Ramses Cunningham Jr ASSESSMENTS Encounter Date Diagnosis Assessment Notes Treatment Notes Treatment Clinical Notes 03/28/2024 Gastroesophageal reflux disease without esophagitis (ICD-10 - K21.9) Gastroesophageal reflux disease material was printed 03/28/2024 Ulcerative pancoliti s without complication (ICD-10 - K51.00) PLAN OF TREATMENT Next Appt Details Provider Name:Ramses schmidt Jr, 03/30/2025 03:35:00 PM, [address] [place] [address], Suite [facility], [place], [address], Insurance Providers Payer Name Payer Address Payer Phone Subscriber Number Group Number Insured Name Patient Relationship to Insured Coverage Start Date Coverage End Date MEDICARE OF [place] [address] [place] [id number] [id number] RU PEREZ Self - patient is the insured MEDICAID OF [facility] [address] [place] [address] [id number] [place] Self - patient is the [...]
--- OUTSIDE RECORDS SUMMARY | 2024-07-05 16:06 | XMS_ITS ---
Author Organization [facility] Address Unknown Allergies, Adverse Reactions, Alerts Substance Reaction Status Noted Date Resolved Date Adhesive Bandages active 03/02/2018 Problems Problem Status Start Date End Date DYSPNEA, UNSPECIFIED (Primary) (R06.00 - ICD-10-CM) AC TIVE 04/12/2018 ACUTE ON CHRONIC DIASTOLIC ( CONGESTIVE) HEART FAILURE (I50.33 - ICD-10-CM) ACTIVE 04/12/2018 OTHER ABNORMALITIES OF GAIT AND MOBILITY (R26.89 - ICD-10-CM) ACTIVE 04/12/2018 WEAKNESS (R53.1 - ICD-10-CM) ACTIVE 04/12/2018 MUSCLE WEAKNESS (GENERALIZED) (M62.81 - ICD-10-CM) ACT BRAULIO 03/02/2018 UNSPECIFIED LACK OF COORDINATION (R27.9 - ICD-10-CM) A CTIVE 03/02/2018 HEART FAILURE, UNSPECIFIED (I50.9 - ICD-10-CM) ACTIVE 03/02/2018 ACUTE AND SUBACUTE ENDOCARDI TIS, UNSPECIFIED (I33.9 - ICD-10-CM) ACTIVE 03/02/2018 GENERALIZED ANXIETY DISORDER (F41.1 - ICD-10-CM) ACTIV E 04/12/2018 BACTEREMIA (R78.81 - ICD-10-CM) RESOLVED 8 04/12/2018 UNSPECIFIED ATRIAL FIBRILLATION (I48.91 - ICD-10-CM) A CTIVE 03/02/2018 IRON DEFICIENCY ANEMIA SECON [place] TO BLOOD LOSS (CHRONIC) (D50.0 - ICD-10-CM) ACTIVE 04/12/2018 UNILATERAL PRIMARY OSTEOARTH RITIS, LEFT KNEE (M17.12 - ICD-10-CM) ACTIVE 04/12/2018 GASTRO-ESOPHAGEAL REFLUX DIS EASE WITHOUT ESOPHAGITIS (K21.9 - ICD-10-CM) ACTIVE 04/12/2018 OTHER INSOMNIA (G47.09 - ICD-10-CM) ACTIVE 04/12 POST-TRAUMATIC STRESS DISORD ER, UNSPECIFIED (F43.10 - ICD-10-CM) ACTIVE 04/12/2018 ULCERATIVE COLITIS, UNSPECIF IED, WITHOUT COMPLICATIONS (K51.90 - ICD-10-CM) ACTIVE 03/02/2018 AGE-RELATED OSTEOPOROSIS WIT HOUT CURRENT PATHOLOGICAL FRACTURE (M81.0 - ICD-10-CM) ACTIVE 03/02/2018 MAJOR DEPRESSIVE DISORDER, R ECURRENT, UNSPECIFIED (F33.9 - ICD-10-CM) ACTIVE 03/02/2018 UNSPECIFIED ASTHMA, UNCOMPLI CATED (J45.909 - ICD-10-CM) ACTIVE 03/02/2018 HYPERLIPIDEMIA, UNSPECIFIED (E78.5 - ICD-10-CM) ACTIVE 03/02/2018 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 with home health services [facility] 04/12/2018 04:30 pm EST - 05/10/2018 02:00 pm EST Immunizations Vaccine Date Influenza 03/04/2018 05:00 pm EDT TB 2 Step [facility] Skin Test 04/20/2018 0 8:00 pm EST TB 2 Step [place] Skin Test 04/13/2018 0 2:00 pm EST TB 2 Step [place] Skin Test 03/03/2018 0 4:25 pm EDT Social History
--- OUTSIDE RECORDS SUMMARY | 2024-07-05 16:06 | XMS_ITS ---
Author Organization [facility] Address [address] [place] [address] Care Team Providers Care Regional Guide Name Role Phone Herson ALANIS, [facility] Primary [facility] Provider Mona Cunningham Jr, Ramses Emmanuel REASON FOR VISIT ulcerative colitis Encounters Encounter Location Date Provider Diagnosis [facility] [address] [place] [address] 04/14/2024 Ramses Cunningham Jr PLAN OF TREATMENT Next Appt Details Provider Name:Ramses schmidt Jr, 03/30/2025 03:35:00 PM, [address] [place] [address], [address], [place], [phone],
--- OUTSIDE RECORDS SUMMARY | 2024-07-05 16:06 | XMS_ITS | Clinical Summary ---
Author Organization [facility] Address [address] [place] [phone] Phone Care Team Providers Care Molder Floor Name Role Phone Rosa M Ellsworth MD Primary Care Provider Allergies Active Allergy Reactions Criticality Noted Date Comments Adhesive 08/16/2020 Other reaction(s): Unknown Niacin 11/15/2020 Nsaids (Non-Steroidal Anti-Inflammatory Drug) 10/08/2018 Medications doxepin HCl (DOXEPIN ORAL) Take 25 mg by mouth at bedtime. Active ferrous sulfate 325 mg (65 mg elemental iron) tablet Take by mouth at bedtime. Taken one tablet Twice daily if she experiences more bleeding then take 3 Active magnesium 250 mg tablet 1 Tab daily. Active multivitamin (MULTIPLE VITAMINS ORAL) Take by mouth 2 times daily. Active Lactobacillus acidophilus (PROBIOTIC ORAL) 2 times daily. Activ e solifenacin succinate (SOLIFENACIN ORAL) Take 10 mg by mouth daily. Active vitamin B complex vit C no.4 (SUPER B COMPLEX + C ORAL) Take by mouth. Activ e calcium carb/vit D3/minerals (CALCIUM-VITAMI N D ORAL) Take 50,000 Units by mouth once a week. Active acetaminophen (TYLENOL) 500 mg tablet as needed. Active albuterol 2.5 mg /3 mL (0.083 %) nebulizer solution Take 1 Vial by nebulization every 4 hours as needed for Wheezing for up to 30 days. 2 Active albuterol HFA (PROAIR HFA ; PROVENTIL HFA ; VENTOLIN HFA) 90 mcg/actuation inhaler Inhale 2 Puffs into the lungs every 4 hours as needed for Wheezing for up to 30 days. 2 Active vitamin C tablet Take 1 tablet (100 mg total) by mouth 1 (one) time each day. 3 Active biotin 5 mg tablet Take by mouth daily. Active dexlansoprazole (DEXILANT) [address] capsule Take 1 capsule (30 mg total) by mouth 1 (one) time each day. Active escitalopram (LEXAPRO) 20 mg tablet 1 Tab daily. Active escitalopram (LEXAPRO) 5 mg tablet Take 1 Tablet by mouth daily. Taken with 20 mg to equal 25 mg qd 3 Active fluticasone furoate-vilante roL (BREO ELLIPTA) 200-25 mcg/dose inhaler Inhale into the lungs daily. Active gabapentin (NEURONTIN) 100 mg capsule Take 2 Capsules by mouth 2 times daily. Active LORazepam (ATIVAN) 1 mg tablet 1 Tab as needed. 1-2 tabs daily as needed Active losartan (COZAAR) 25 mg tablet Take 1 tablet (25 mg total) by mouth 1 (one) time each day. 3 Active methenamine hippurate (HIPREX) 1 gram tablet Take 1 tablet (1 g total) by mouth 1 (one) time each day. 3 Active potassium chloride (KLOR-CON) 10 mEq CR tablet Take 1 tablet (10 mEq total) by mouth 1 (one) time each day. 4 Active simvastatin (ZOCOR) 40 mg tablet Take 1 tablet (40 mg total) by mouth 1 (one) time each day. 1 Active solifenacin (VESICARE) 10 mg tablet Take 1 tablet (10 mg total) by mouth 1 (one) time each day. Active torsemide (DEMADEX) 20 mg tablet Take 2 tablets (40 mg total) by mouth 1 (one) time each day. 4 Active vibegron (Gemtesa) 75 mg tablet tablet Take by mouth. A ctive metoprolol tartrate (LOPRESSOR) 100 mg tablet Take 1 tablet (100 mg total) by mouth 2 (two) times a day. 180 tablet 2 5 Active Active Problems Problem Noted Date Diagnosed Date Asthma 10/14/2022 Back pain 10/14/2022 Chronic diastolic heart failure 10/14/2022 Chronic interstitial cystitis 10/14/2022 Osteoporosis 10/14/2022 Pleural effusion, right 10/14/2022 Post-pericardiotomy syndrome 10/14/2022 Posttraumatic stress disorder 10/14/2022 Sacroiliitis 10/14/2022 Overview (04/12/2024): Last Assessment & Plan: Ms. Rodriguez was seen in follow-up. She had an injection in her right SI joint a couple of years ago and had great relief. Unfortunately over the past several months, she has had increasing right SI joint pain. This was reproduced with palpation of the SI joint. She would like to go for another injection and I think this is reasonable. We talked about physical therapy but given that she lives on the third floor and it is like a marathon to get her in and out of the house, her son is really trying to avoid increasing the number of office visits. We will arrange for an SI joint injection. Severe obesity 10/14/2022 Ulcerative colitis 10/14/2022 (HFpEF) heart failure with preserved ejection fr action 06/17/2022 Overview (04/12/2024): Last Assessment & Plan: The patient reports symptoms suggestive of volume overload. In clinic, she is not overtly fluid up today and she is in no acute distress. She is able to speak in complete sentences. Would recommend 60 mg of torsemide daily for 3 days and then an attempt to be more consistent taking her 40 mg of torsemide and minimize the 20 mg days and certainly minimize to the best of their ability skipping doses. Continue otherwise for now her beta-bryan and ARB. Atrial fibrillation 11/19/2020 Overview (04/12/2024): Last Assessment & Plan: The patient is clinically in sinus rhythm today. She has been in sinus rhythm on all the EKGs available to me in our electronic medical record system. It is unclear when or how frequently she has atrial fibrillation. However, her anticoagulation at this time is interrupted due to significant hematuria from her interstitial cystitis as well as occult blood in her stool and anemia. The patient, her son and I discussed atrial fibrillation. Her [id number] score is at least 5. However, her bleeding issues prohibit anticoagulation at this time. This is a difficult situation. The patient is a high [id number] score, but at this time relative contrary very easily induced bleeding hematuria. I discussed the case with Dr. Rubio. We offered to the patient 30 Day Loop monitor versus implantable loop monitor (with a battery life of multiple years) versus Watchman procedure. The patient explicitly declines any further testing or procedures. I did strongly encourage an ILR as if the patient is not actually having episodes of atrial fibrillation, it would be reasonable for a prolonged interruption of her anticoagulation. However, if she is having more frequent episodes of atrial fibrillation as noted by an ILR, we would recommend either resumption of her anticoagulation versus consideration of a Watchman procedure at that time. The understanding would be though that if she were to undergo Watchman procedure, she would need to be on full anticoagulation leading up to the procedure and for a period of time thereafter and then be able to be maintained on DAPT for 6 months following the watchman. I worry that this is not feasible at this time. In the end, the patient declines anticoagulation at this time and she declines any of the monitors that we suggested. She understands that she is at increased stroke risk as we do not have her atrial fibrillation burden well quantified. I suggested that if she has any symptoms possibly suggestive of palpitations or tachycardia to seek emergency medical attention and obtain an EKG. If she is back in atrial fibrillation, anticoagulation would need to be revisited in a multidisciplinary team meeting. The patient and her son understand this and agree. They will notify us of any change in her current condition Hyperlipidemia 11/19/2020 Overview (04/12/2024): Last Assessment & Plan: I do not have a recent lipid profile. Continue statin at current dose for now. If her most recent lipid profile can be sent from her PCPs office, we would greatly appreciated. Hypersomnia 11/19/2020 Overview (04/12/2024): Last Assessment & Plan: She likely has obstructive sleep apnea and is willing to undergo a sleep study. We will order this at first available. Congestive heart failure 11/15/2020 Overview (04/12/2024): Congestive heart failure Last Assessment & Plan: Her volume status appears acceptable at this time. I will not make any changes to her diuretic therapy. She will call the office for weight gain of more than 3 pounds in 1 day or 5 pounds in 1 week. She does not seem overly compliant with a low-salt diet and I recommend this. Endocarditis 11/15/2020 Overview (04/12/2024): Endocarditis Fatigue 08/16/2020 Overview (04/12/2024): Last Assessment & Plan: The patient does feel very fatigued I think this could be related to the high dose of metoprolol that she is taking. I do think at some point after we do get her other testing back we could consider transitioning her to something else for her blood pressure. H/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 0 08/16/2020 Overview (04/12/2024): Last Assessment & Plan: The patient's bioprosthetic mitral valve replacement is normally functioning on most recent echocardiogram. Continue periodic surveillance and SBE prophylaxis. Hx of aortic valve replacement 08/16/2020 Overview (04/12/2024): Last Assessment & Plan: The patient's bioprosthetic aortic valve replacement is normally functioning on most recent echocardiogram. Continue periodic surveillance and SBE prophylaxis Hypertension 08/16/2020 Overview (04/12/2024): Last Assessment & Plan: Patient's blood pressure is well-controlled in office today. Continue diuretic, beta-bryan and ARB Shortness of breath on exertion 08/16/2020 Overview (04/12/2024): Last Assessment & Plan: Patient is having shortness of breath with exertion I do think some of this is due to the fact that she is volume overloaded. She is only taking her Lasix once a day. I am going to check some blood work and after reviewing this we will increase her dose to 60 mg daily. By exam the aortic and mitral valve functioning normally however given the fact that she does appear to be in some heart failure I am going to repeat her echocardiogram. Fracture of thoracic spine 05/26/2018 Encounters Date Type Department Care Team Description 06/03/2024 Telephone [facility] - [address] [place] [address] Gemma Hurd MA Med Refill (Incoming fax S&S Lopressor ) from Last 3 Months Immunizations Name Administration Dates Next Due Influenza Quadravalent, 0.5m l (Fluad) 65yo and older 03/05/2022 Influenza Quadravalent, 0.5m l (Fluzone High-dose) 65yo and older 04/12/2018 Influenza trivalent, with preservative (Fluzone; Afluria) 6mo and older 03/06/2021,03/10/2020,03/08/2019,2017,03/04/2017 Moderna SARS-CoV-2 COVID-19, mRNA, LNP-S, preservative free 08/27/2020 Family History Medical History Relation Name Comments Stroke Father Other: pacemaker Mother Stroke Mother Relation Name Status Comments Father Mother Social History Tobacco Use Types Packs/Day Years Used Date Smoking Tobacco: Former Smokeless Tobacco: Never Alcohol Use Standard Drinks/Week Comments No 0 (1 standard drink = 0.6 oz pur e alcohol) Comments Unknown Sex and Gender Information Value Date Recorded Sex Assigned at Not on file Legal Sex Female 7:28 PM EST Gender Identity Not on file Sexual Orientation Not on file Obstetrics History Last Filed Vital Signs Vital Sign Reading Time Taken Comments Blood Pressure 130/66 10/30/2023 1:52 PM EDT Sitting L Arm Pulse 52 10/30/2023 1:52 PM EDT Temperature - - Respiratory Rate - - Oxygen Saturation - - Inhaled Oxygen Concentration - - Weight 89.5 kg (197 lb 6.4 oz) 10/30/2023 1:52 PM EDT Height 152.4 cm (5') 10/30/2023 1:52 PM EDT Body Mass Index 38.55 10/30/2023 1:52 PM EDT Plan of Treatment Upcoming Encounters Date Type Department Care Team (Late st Contact Info) Description 08/03/2024 1:00 PM EDT Office Visit [facility] [address] [facility] [address] [place] [phone] Madeline Espinosa MD [address] [place] [address] 08/26/2024 2:00 PM EDT Office Visit Pulmonolgy - [place] [address] [facility] [address] [place] [phone] Rosa M Ellsworth MD [address] [facility] [address] [place] [address] Health Maintenance Due Date Last Done Comments Pneumococcal Vaccine: 50+ Years (1 of 2 - PCV) 1956 DTaP,Tdap,and Td Vaccines (1 - Tdap) 12/23/1967 Zoster Vaccines (1 of 2) 1998 Colorectal Cancer Screening: Colonoscopy 05/03/2022 Depression Screening 05/03/2022 Falls Risk Assessment 05/03/2022 Hepatitis C Screening 05/03/2022 Medicare Annual Wellness Visit 05/03/2022 Osteoporosis Screening (Bone Density Screening) 05/03/2022 Social Influencers of Health Screening 05/03/2022 RSV Immunization Patients 60+ Years Old (1 - 1-dose 75+ series) 12/23/2023 COVID-19 Vaccine ( season) 2024 03/28/2021, 09/24/2020, 08/27/2020 Influenza Vaccine (#1) 2024 2, 03/06/2021, 03/10/2020, Additional history exists Hypertension/CHF/CAD Annual BMP Blood Test 02/27/2024 02/26/2023 Cholesterol Screening (Lipid Panel) 06/26/2026 06/26/2021 HIB Vaccines Aged Out No longer eligi ble based on patient's age to complete this topic HPV Vaccines Aged Out No longer eligi ble based on patient's age to complete this topic Hepatitis A Vaccines Aged Out No long er eligible based on patient's age to complete this topic Hepatitis B Vaccines Aged Out No long er eligible based on patient's age to complete this topic IPV Vaccines Aged Out No longer eligi ble based on patient's age to complete this topic MMR Vaccines Aged Out No longer eligi ble based on patient's age to complete this topic Meningococcal ACWY Vaccine Aged Out N o longer eligible based on patient's age to complete this topic RSV Immunization Patients Under 20 months Aged Out No longer eligible based on patient's age to complete this topic Varicella Vaccines Aged Out No longer eligible based on patient's age to complete this topic Procedures Procedure Name Priority Date/Time Associated Diagnosis Comments ANNUAL BMP BLOOD TEST Routine 02/26/2023 LIPID PANEL Routine 06/26/2021 from Last 3 Months or Most Recently Relevant to Health Maintenance Results * Annual BMP Blood Test (02/26/2023) Annual BMP Blood Test abstracted Historical Provider HEALTH MAINTENANCE Final Result * Lipid panel (06/26/2021) LDL/HDL Ratio 2 0 - 4 Triglycerides 146 0 - 150 mg/dL Cholesterol 123 0 - 200 mg/dL HDL 53 >=40 mg/dL LDL Cholesterol 41 0 - 100 mg/dL Blood Venous blood specimen / Unknown Historical Provider LAB BLOOD ORDERABLES Alba l Result from Last 3 Months or Most Recently Relevant to Health Maintenance Insurance [place] MEDICARE Advance Directives Documents on File Type Date Recorded Patient Stone Belt Sander Expl anation Health Care Decision (hx) 02/12/2023 AD HINA DIRECTIVE Care Teams Molder Floor Relationship Specialty Start Date End Date Rosa M Ellsworth MD [address] [place] [id number] PCP - General Pulmonology 05/26/24
--- OUTSIDE RECORDS SUMMARY | 2024-07-05 16:07 | XMS_ITS ---
Author Organization [facility] Address [address] [place] [address] Care Team Providers Care Lubrication Worker Name Role Phone Herson ALANIS, [facility] Primary Care Provider Mona Cunningham Jr, Ramses Emmanuel REASON FOR VISIT Patient presents today for gerd, ulcerative pancolitis Encounters Encounter Location Date Provider Diagnosis [facility] [address] [place] [address] 01/21/2024 Ramses Cunningham Jr PLAN OF TREATMENT Next Appt Details Provider Name:Ramses schmidt Jr, 03/30/2025 03:35:00 PM, [address] [place] [address], [address], [place], [address],
== END 2024-07-05 15:29 | disposition home or self-care (01) ==
LOC: HO.LNP 15:28
PROVIDERS: Visit Provider Nurse Practitioner Family
DX: N30.10 Interstitial cystitis (chronic) without hematuria (principal); R32 Unspecified urinary incontinence; R35.0 Frequency of micturition
CPT/HCPCS: 81001; 87086

== ENCOUNTER 2024-08-18 13:02 | Outpatient (REF) | payer MEDICARE, MEDICAID, SELFPAY | END 2024-08-18 13:03 | disposition home or self-care (01) | LOC: HO.LAB 13:02 | PROVIDERS: PCP Internal Medicine | DX: N30.00 Acute cystitis without hematuria (principal); N39.0 Urinary tract infection, site not specified | CPT/HCPCS: 87086; 99212 ==

== ENCOUNTER 2024-08-18 13:02 | Outpatient (AMB) | payer MEDICARE, MEDICAID, SELFPAY ==
--- NOTE | 2024-08-18 13:04 | AM.OFFWIN_ITS ---
Intake Vital Signs 08/18/24 13:19 BP 114/76 Blood Pressure Location Rt brachial Position Sitting Pulse 53 Pulse Source Pulse Oximeter Pulse Oximetry (%) 97 Oxygen Delivery Method Room Air Intake Visit Reasons: EP ? UTI Intake Note: Patient here for lower back pain, frequent urination that has been present for about 3 weeks. Patient Tobacco Use Status: Former Tobacco user Allergies adhesive [ADHESIVE] Allergy (Unknown, Verified 08/18/24 13:17) LOCAL REACTION melatonin Allergy (Verified 08/18/24 13:17) PYSCHOSIS blue dye Adverse Reaction (Verified 08/18/24 13:17) Diarrhea Do you need a note to return to daycare/school/sports/work: No HPI HPI Comments History of Present Illness Details History of Present Illness - The patient is a 73-year-old female pr esenting with her son Mich with urinary tract infection symptoms. - Onset of current symptoms was in Febru allison, with temporary relief noted after self-medication with leftover Keflex. - Symptoms include pain with urination a nd increased urinary frequency. The patient denies fever, blood in her urine, or abdominal pain. - The patient reports significant low ba ck pain but is not certain about its relation to the urinary symptoms. - No history of kidney stones. - The patient has been taking antacids, which may interfere with antibiotic efficacy. Physical Exam General: Cooperative, healthy appearing, comfortable, no acute distress and well developed Orientation: Patient oriented x3 Limitations: in wheelchair Head: Normal to inspection Ears: Hearing grossly normal bilaterally Nose: Normal External nose present Face and sinus: Normal facial exam Eyes: Appearance normal, both eyes and all related structures Neck: Normal visual inspection and Yes full ROM Respiratory: Normal respiratory effort and able to speak in complete sentences. Skin: No rashes or lesions noted Neuro: Patient oriented x3 Extremities: Normal to inspection [facility] Medical History Memory loss, short term Carpal tunnel syndrome on both sides Cataract CHF exacerbation History of stroke Abnormal colonoscopy (~04/03/22) Wheezing Anemia Urinary incontinence Right carpal tunnel syndrome Post cardiotomy syndrome PTSD (post-traumatic stress disorder) Osteoarthritis, hip, bilateral Interstitial cystitis Lipid disorder Insomnia Generalized anxiety disorder with panic attacks Major depression, recurrent History of ulcerative colitis Chronic GERD Diastolic congestive heart failure Paroxysmal atrial fibrillation Age related osteoporosis Asthma, moderate persistent Anticoagulant long-term use Iron deficiency anemia Establishing care with new doctor, encounter for Hypertension, essential Surgical History Hx of tonsillectomy Hx of colonoscopy Hx of rotator cuff surgery History of arthroplasty of both knees Hx of hysterectomy Status post mitral valve replacement Status post aortic valve replacement History of kyphoplasty History of artificial heart valve Family History Daughter Mental health disorder Substance use disorder Father Emphysema lung Mother Heart disease Stroke Pacemaker Arthritis Family/Other Colon cancer Sister Crohn's disease Social History Household Members: Children Household Members Other:: son Housing: Apartment Are you a primary animal care giver to a significant other at home: No Do you presently have visiting nurse or other home services: No Alcohol intake: never Patient Tobacco Use Status: Former Tobacco user e-Cigarette/Vaping Use: Never Used Substance Use Type: Marijuana Advance Directives Date on File: 03/18/22 service: No Current occupational status: retired Cognitive needs: No Hearing needs: No Vision needs: Yes Review of Systems Const All systems reviewed & are unremarkable except as noted in HPI and below Assessment & Plan Assessment & Plan (1) Urinary tract infection: Code(s): N39.0 - Urinary tract infection, site not specified Qualifiers: Urinary tract infection type: acute cystitis Hematuria presence: without hematuria Qualified Code(s): N30.00 - Acute cystitis without hematuria Plan: UA + leuks, neg nitrites and neg blood. The patient's symptoms indicative of a urinary tract infection will be managed with a prescribed antibiotic, Cefuroxime, to be taken every 12 hours for five days, ensuring comprehensive danielito atment completion. The patient expresses willingness to stop antacid periodically to improve antibiotic absorption. Given the relief previously noted with Keflex, Cefuroxime was selected for its similar effectiveness. Urine culture will be sent. Additionally, Aleve is recommended for managing her notable low back pain, as the patient is no longer on blood thinners, which allows for its safe usage. Patient was informed and verbally consented to the use of an ambient scribe for clinic note documentation during this visit. Orders: Orders Urine Culture Today N39.0 - Urinary tract infection, site not specified Medications: New cefuroxime axetil 500 mg PO Q12H 10 tabs 0RF Coding Level of Care Code Est Pt Level 3 (53993) Diagnoses Acute cystitis without hematuria N30.00 Urinary tract infection type: acute cystitis Hematuria presence: without hematuria
[2024-08-18 13:19] VITALS: BP 114/76; PULSE 53; O2SAT 97
--- OUTSIDE RECORDS SUMMARY | 2024-08-18 16:03 | XMS_ITS ---
Author Organization [facility] Address [address] [place] [address] Care Team Providers Care Forest Nursery Supervisor Name Role Phone Herson ALANIS, Negrita Primary Care Provider Mona Cunningham Jr, Ramses Emmanuel REASON FOR VISIT Patient presents today for gerd, ulcerative pancolitis Encounters Encounter Location Date Provider Diagnosis [facility] [address] [place] [address] 01/21/2024 Ramses Cunningham Jr Plan Of Treatment Next Appt Details Provider Name:Ramses schmidt Jr, 03/30/2025 03:35:00 PM, [address], [address], [place], [address], Progress Notes * RU MIRANDA MDOB:[birth year] (73 yo F)Acc No.[id number]:01/21/2024 Progress Notes Patient:?RU MIRANDA Provider:?Ramses Cunningham MD :1950???Age:73 Y???Sex:Female D ate:01/21/2024 Address:[address] [place] [address], [id number] Pcp:Negrita Bains MD Subjective: * Chief Complaints: * ???1. Patient presents today for gerd, ulcerative pancolitis. * Medical History:? Objective: * Vitals:? Assessment: Plan: * Treatment: * * The named appointment provid er may or may not be the originator of this progress note, and it is not deemed complete until electronically signed by the appointment provider. Sign off status: Pending * Provider:?Ramses Cunningham MD Date:?0 01/21/2024 Generated for Cherrie kelly/Kristyn/Toan on:?08/18/2024 04:03 PM EDT
--- OUTSIDE RECORDS SUMMARY | 2024-08-18 16:03 | XMS_ITS ---
Author Organization [facility] Address [address] [place] [address] Care Team Providers Care Lacquer Maker Name Role Phone Herson ALANIS, Negrita Primary Care Provider Mona Cunningham Jr, Ramses Emmanuel REASON FOR VISIT ulcerative colitis Encounters Encounter Location Date Provider Diagnosis [facility] [address] [place] [address] 04/14/2024 Ramses Cunningham Jr Plan Of Treatment Next Appt Details Provider Name:Ramses schmidt Jr, 03/30/2025 03:35:00 PM, [address], [address], [place], [address], Progress Notes * RU MIRANDA MDOB:[birth year] (73 yo F)Acc No.[id number]:04/14/2024 Progress Notes Patient:?RU MIRANDA Provider:?Ramses Cunningham MD :1950???Age:73 Y???Sex:Female D ate:04/14/2024 Address:[address] [place] [address], [id number] Pcp:Negrita Bains MD Subjective: * Chief Complaints: * ???1. Ulcerative colitis. * Medical History:? Objective: * Vitals:? Assessment: Plan: * Treatment: * * The named appointment provid er may or may not be the originator of this progress note, and it is not deemed complete until electronically signed by the appointment provider. Sign off status: Pending * Provider:?Ramses Cunningham MD Date:?1 06/14/2023 Generated for Cherrie kelly/Kristyn/Toan on:?08/18/2024 04:03 PM EDT
--- OUTSIDE RECORDS SUMMARY | 2024-08-18 16:03 | XMS_ITS | Encounter Summary ---
Author Organization [facility] [place] [address] Care Team Providers Care Chef Name Role Phone Negrita Bains MD Primary Care Provider [phone] Reason for Visit * Reason Onset Date Comments Medical Records 08/04/2024 Encounter Details Date Type Department Care Team (Late st Contact Info) Description 08/04/2024 Telephone [facility]iology [facility] [address] [place] [address] Negrita Bains MD [address] [place] [address] Medical Records Social History Tobacco Use Types Packs/Day Years Used Date Smoking Tobacco: Former Smokeless Tobacco: Never Alcohol Use Standard Drinks/Week Comments No 0 (1 standard drink = 0.6 oz pur e alcohol) Comments Unknown Sex and Gender Information Value Date Recorded Sex Assigned at Not on file Legal Sex Female 7:28 PM EST Gender Identity Not on file Sexual Orientation Not on file documented as of this encounter Progress Notes * Mariela Darnell - 08/04/2024 9:25 AM EDT Faxed signed DANE to Primary Care for records. documented in this encounter Plan of Treatment Upcoming Encounters Date Type Department Care Team (Late st Contact Info) Description 08/26/2024 2:00 PM EDT Office Visit Pul[facility] - [place] [address] [place] [address] Rosa M Ellsworth MD [address] [place] [address] documented as of this encounter Visit Diagnoses Not on filedocumented in this encounter Care Teams Chef Relationship Specialty Start Date End Date Negrita Bains MD [address] [place] [address] PCP - General Internal Medicine 08/01/24 documented as of this encounter
--- OUTSIDE RECORDS SUMMARY | 2024-08-18 16:03 | XMS_ITS | Encounter Summary ---
Author Organization [facility] Address [address] [place] [address] Care Team Providers Care Senior Care Assistant Name Role Phone Negrita Bains MD Primary Care Provider [phone] Reason for Visit * Reason Comments Establish Care Encounter Details Date Type Department Care Team (Late st Contact Info) Description 08/03/2024 1:00 PM EDT Office Visit [facility] [address] [place] [phone] Madeline Machuca MD [address] [place], [place] [phone] Atrial fibrillation, unspecified type (CMS/HCC) (Primary Dx) Social History Tobacco Use Types Packs/Day Years [...] on file documented as of this encounter Last Filed Vital Signs Vital Sign Reading Time Taken Comments Blood Pressure 142/70 08/03/2024 1:16 PM EDT Pulse 55 08/03/2024 1:16 PM EDT Temperature - - Respiratory Rate - - Oxygen Saturation 95% 08/03/2024 1:16 PM EDT Inhaled Oxygen Concentration - - Weight 87.5 kg (192 lb 12.8 oz) 08/03/2024 1:16 PM EDT Height - - Body Mass Index 37.65 10/30/2023 1:52 PM EDT documented in this encounter Progress Notes * Madeline Machuca MD - 08/03/2024 1:00 PM EDTAssociated Problem(s): Atrial fibrillation (CMS/HCC) Orders: ECG 12 lead documented in this encounter Plan of Treatment Upcoming Encounters Date Type Department Care Team (Late st Contact Info) Description 08/26/2024 2:00 PM EDT Office Visit Pulmonolgy - [place] [address] [place] [address] Rosa M Ellsworth MD [address] [place] [address] documented as of this encounter Procedures Procedure Name Priority Date/Time Associated Diagnosis Comments ECG 12-LEAD Routine 08/03/2024 1:06 PM EDT Atrial fibrillation, unspecified type (CMS/HCC) documented in this encounter Results * ECG 12 lead (08/03/2024 1:06 PM EDT) Ventricular Rate ECG 55 BPM GEMUSE Atrial Rate 55 BPM GEMUSE P-R Interval 156 ms GEMUSE QRS Duration 164 ms GEMUSE Q-T Interval 504 ms GEMUSE QTc 482 ms GEMUSE P Wave [place] 79 degrees GEMUSE R [place] -56 degrees GEMUSE T [place] -34 degrees GEMUSE ECG Interpretation Sinus bradycardia Right bundle branch block Left anterior fascicular block Bifascicular block Abnormal ECG When compared with ECG of 10-FEB-2023 16:26, Premature atrial complexes are no longer Present T wave inversion more evident in Inferior leads Confirmed by MADELINE MACHUCA ([id number]) on 08/05/2024 5:24:37 PM GEMUSE 08/03/2024 1:06 PM EDT 08/05/2024 5:24 PM EDT us Madeline Machuca MD ECG ORDERABLES Final Result GEMUSE documented in this encounter Visit Diagnoses Diagnosis Atrial fibrillation, unspecified type (CMS/HCC)- Primary documented in this encounter Discontinued Medications Medication Sig Discontinue Reason Start Date End Da te solifenacin succinate (SOLIFENACIN ORAL) Take 10 mg by mouth daily. Duplicate order 08/03/2024 documented as of this encounter Historical Medications * This list may reflect changes made after this encounter. ARIPiprazole (Abilify) 2 mg tablet Take 1 tablet (2 mg total) by mouth 1 (one) time each day. added in this encounter Care Teams Senior Care Assistant Relationship Specialty Start Date End Date Negrita Bains MD [address] [place] [address] PCP - General Internal Medicine 08/01/24 documented as of this encounter
--- OUTSIDE RECORDS SUMMARY | 2024-08-18 16:03 | XMS_ITS | Clinical Summary ---
Author Organization [facility] Address [address] [place] [phone] Phone Care Team Providers Care City Driver Name Role Phone Negrita Bains MD Primary Care Provider Allergies Active Allergy Reactions Criticality Noted Date Comments Adhesive 08/16/2020 Other reaction(s): Unknown Niacin 11/15/2020 Medications doxepin HCl (DOXEPIN ORAL) Take 25 mg by mouth at bedtime. Active ferrous sulfate 325 mg (65 mg elemental iron) tablet Take by mouth at bedtime. Taken one tablet Twice daily if she experiences more bleeding then take 06/10/19 23 Active magnesium 250 mg tablet 1 Tab daily. Active multivitamin (MULTIPLE VITAMINS ORAL) Take by mouth 2 times daily. Active Lactobacillus acidophilus (PROBIOTIC ORAL) 2 times daily. Activ e vitamin B complex vit C no.4 (SUPER [...] for Wheezing for up to 30 days. 11/13/19 22 Active albuterol HFA (PROAIR HFA ; PROVENTIL HFA ; VENTOLIN HFA) 90 mcg/actuation inhaler Inhale 2 Puffs into the lungs every 4 hours as needed for Wheezing for up to 30 days. 11/14/19 Active vitamin C tablet Take 1 tablet (100 mg total) by mouth 1 (one) time each day. 05/21/20 Active biotin 5 mg tablet Take by mouth daily. Active dexlansoprazole (DEXILANT) [address] capsule Take 1 capsule (30 mg total) by mouth 1 (one) time each day. Active escitalopram (LEXAPRO) 20 mg tablet 1 Tab daily. Active escitalopram (LEXAPRO) 5 mg tablet Take 1 Tablet by mouth daily. Taken with 20 mg to equal 25 mg qd 06/10/19 Active fluticasone furoate-vilante roL (BREO ELLIPTA) 200-25 mcg/dose inhaler Inhale into the lungs daily. Active gabapentin (NEURONTIN) 100 mg capsule Take 2 Capsules by mouth 2 times daily. Active LORazepam (ATIVAN) 1 mg tablet 1 Tab as needed. 1-2 tabs daily as needed Active methenamine hippurate (HIPREX) 1 gram tablet Take 1 tablet (1 g total) by mouth 1 (one) time each day. 05/21/20 Active potassium chloride (KLOR-CON) 10 mEq CR tablet Take 1 tablet (10 mEq total) by mouth 1 (one) time each day. 01/06/20 24 Active simvastatin (ZOCOR) 40 mg tablet Take 1 tablet (40 mg total) by mouth 1 (one) time each day. 11/20/19 Active solifenacin (VESICARE) 10 mg tablet Take 1 tablet (10 mg total) by mouth 1 (one) time each day. Active torsemide (DEMADEX) 20 mg tablet Take 2 tablets (40 mg total) by mouth 1 (one) time each day. 07/17/19 24 Active vibegron (Gemtesa) 75 mg tablet tablet Take by mouth. A ctive metoprolol tartrate (LOPRESSOR) 100 mg tablet Take 1 tablet (100 mg total) by mouth 2 (two) times a day. 180 tablet 2 06/03/19 25 Active losartan (COZAAR) 25 mg tablet Take 1 tablet (25 mg total) by mouth 1 (one) time each day. 90 tablet 1 07/19/19 25 Active ARIPiprazole (Abilify) 2 mg tablet Take 1 tablet (2 mg total) by mouth 1 (one) time each day. Active solifenacin succinate (SOLIFENACIN ORAL) Take 10 mg by mouth daily. 025 Discontin ued(Dupli rhiannon order) Active Problems Problem Noted Date Diagnosed Date [...] son and I discussed atrial fibrillation. Her AMH1QU0-TTBb score is at least 5. However, her bleeding issues prohibit anticoagulation at this time. This is a difficult situation. The patient is a high XDY5GC3-RBPv score, but at this time relative contrary [...] of any change in her current condition Assessment & Plan (08/03/2024 2:27 PM EDT): Orders: ECG 12 lead Hyperlipidemia 11/19/2020 Overview (04/12/2024): Last Assessment & [...] Encounters Date Type Department Care Team Description 08/04/2024 Telephone [facility] Card[facility] [address] [place] [address] Negrita Bains MD Medical Records 08/03/2024 1:00 PM EDT Office Visit [facility] Cardiology [facility] [address] [place] [phone] Madeline Machuca MD Atrial fibrillation, unspecified type (CMS/HCC) (Primary Dx) 07/19/2024 Telephone [facility] Cardiology [facility] - [address] [place] [phone] Ivone Coyle NP Med Refill (Losartan) 06/03/2024 Telephone [facility] Cardiology [facility] [address] [place] [address] Gemma Hurd MA Med Refill (Incoming fax [...] 12.8 oz) 08/03/2024 1:16 PM EDT Height 152.4 cm (5') 10/30/2023 1:52 PM EDT Body Mass Index 37.65 10/30/2023 1:52 PM EDT Plan of Treatment Upcoming Encounters Date Type Department Care Team (Late st Contact Info) Description 08/26/2024 2:00 PM EDT Office Visit Pulmonolgy - [place] [address] [place] [phone] Rosa M Ellsworth MD [address] [facility] [address] [place] [address] Health Maintenance Due Date Last Done Comments DTaP,Tdap,and Td Vaccines (1 - Tdap) 12/23/1967 Pneumococcal Vaccine: 50+ Years (1 of 2 - PCV) 12/23/1967 Zoster Vaccines (1 of 2) 1998 Colorectal Cancer Screening: Colonoscopy 05/03/2022 Depression Screening 05/03/2022 Falls Risk Assessment 05/03/2022 Hepatitis C Screening 05/03/2022 Medicare Annual Wellness Visit 05/03/2022 Osteoporosis Screening (Bone Density Screening) 05/03/2022 Social Influencers of Health Screening 05/03/2022 RSV Immunization Patients 60+ Years Old (1 - 1-dose 75+ series) 12/23/2023 COVID-19 Vaccine (4 - 2023- season) 2024 03/28/2021, 09/24/2020, 08/27/2020 Influenza Vaccine (#1) 2024 4, 03/05/2022, 03/06/2021, Additional history exists Hypertension/CHF/CAD Annual BMP Blood Test 02/27/2024 02/26/2023, 02/26/2023 Cholesterol Screening (Lipid Panel) 06/26/2026 06/26/2021 [...] patient's age to complete this topic Meningococcal B Vacine Aged Out No lo nger eligible based on patient's age to complete this topic RSV Immunization Patients Under 20 months Aged Out No longer eligible based on patient's age to complete this topic Varicella Vaccines Aged Out No longer eligible based on patient's age to complete this topic Procedures Procedure Name Priority Date/Time Associated Diagnosis Comments ECG 12-LEAD Routine 08/03/2024 1:06 PM EDT Atrial fibrillation, unspecified type (CMS/HCC) ANNUAL BMP BLOOD TEST Routine 02/26/2023 LIPID PANEL Routine 06/26/2021 from Last 3 Months or Most Recently Relevant to Health Maintenance Results * ECG 12 lead (08/03/2024 1:06 PM EDT) [facility] Ventricular Rate ECG 55 BPM GEMUSE Atrial Rate 55 BPM GEMUSE P-R Interval 156 ms GEMUSE QRS Duration 164 ms GEMUSE Q-T Interval 504 ms GEMUSE QTc 482 ms GEMUSE P Wave [place] 79 degrees GEMUSE R [place] -56 degrees GEMUSE T [place] -34 degrees GEMUSE ECG Interpretation Sinus bradycardia Right bundle branch block Left anterior fascicular block Bifascicular block Abnormal ECG When compared with ECG of 10-FEB-2023 16:26, Premature atrial complexes are no longer Present T wave inversion more evident in Inferior leads Confirmed by MADELINE MACHUCA ([id number]) on 08/05/2024 5:24:37 PM GEMUSE 08/03/2024 1:06 PM EDT 08/05/2024 5:24 PM EDT Madeline Machuca MD ECG ORDERABLES Final Result GEMUSE * Annual BMP Blood Test (02/26/2023) [facility] Annual BMP Blood Test abstracted Historical Provider HEALTH MAINTENANCE Final Result * Lipid panel (06/26/2021) [facility] LDL/HDL Ratio 2 0 - 4 Triglycerides 146 0 - 150 mg/dL Cholesterol 123 0 - 200 mg/dL HDL 53 >=40 mg/dL LDL Cholesterol 41 0 - 100 mg/dL Blood Venous blood specimen / Unknown Historical Provider LAB BLOOD ORDERABLES Alba l Result from Last 3 Months or Most Recently Relevant to Health Maintenance Insurance MEDICAID - [place] MEDICARE Advance Directives Documents on File Type Date Recorded 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
--- OUTSIDE RECORDS SUMMARY | 2024-08-18 16:03 | XMS_ITS ---
Author Organization [facility] Care Team Providers Care Supply Aide Name Role Phone Tianna Riojas Unavailable Unavailable Wilfrido Deng Unavailable Unavailable Bessy Florez Unavailable Unavailable Allergies and adverse reactions Code CodeSystem Substance Reaction Severity StartDate Concern Status Lactose Intolerant Unknown 01/30/2021 ac tive Adhesive Tape Unknown 01/24/2021 active Care Team Name Role Address Phone Organization Dates Wilfrido Deng PCP [address] [facility] [address], [place], [address], [facility] (Office): [facility] 01/25/2021 - 01/31/2021 Tianna Riojas Attending Physician [address] [place] [address], [address], [facility] (Office): [facility] 01/25/2021 - 01/31/2021 Bessy Florez Attending Physician [address], [address], [facility] (Office): [facility] 01/25/2021 - 01/31/2021 Immunizations Immunization Status Vaccine Details Vaccine Code CodeSystem James e Notes SARS-COV-2 (COVID-19) completed SARS-COV-2 (COVID-19) vaccine, mRNA, spike protein, LNP, preservative free, 100 mcg/0.5mL dose or 50 mcg/0.25mL dose Step 2 of Multi-step with next step required 207 CVX created date: 01/25/2021 administered date: 09/24/2020 SARS-COV-2 (COVID-19) completed SARS-COV-2 (COVID-19) vaccine, mRNA, spike protein, LNP, preservative free, 100 mcg/0.5mL dose or 50 mcg/0.25mL dose Mfg: Maderna Step 1 of Multi-step with next step required 207 CVX created date: 01/25/2021 administered date: 08/27/2020 Mental Status Section Date Assessment Total Score Description 01/31/2021 CAM 0 No delirium ind icated 01/30/2021 BIMS 15 cognitively int act CAM 0 No delirium ind icated PHQ-9 03 minimal depress ion Problems Problem # Description Date of onset Resolved Date Code CodeSystem Concern Status 1 ACUTE AND SUBACUTE INFECTIVE ENDOCARDITIS 01/24/[address] active 2 ANXIETY DISORDER, UNSPECIFIED 01/24/[address] active 3 CONTUSION OF RIGHT KNEE, SEQUELA 01/24/[address] active 4 DIFFICULTY IN WALKING, NOT ELSEWHERE CLASSIFIED 01/24/[address] active 5 ESSENTIAL (PRIMARY) HYPERTENSION 01/24/[address] active 6 GASTRO-ESOPHAGEAL REFLUX DISEASE WITHOUT ESOPHAGITIS 01/24/[address] active 7 HEART FAILURE, UNSPECIFIED 01/24/[address] active 8 HYPERLIPIDEMIA, UNSPECIFIED 01/24/[address] active 9 INSOMNIA, UNSPECIFIED 01/24/[address] active 10 MAJOR DEPRESSIVE DISORDER, SINGLE EPISODE, UNSPECIFIED 01/24/[address] active 11 MORBID (SEVERE) OBESITY DUE TO EXCESS CALORIES 01/24/[address] active 12 OTHER ASTHMA 01/24/[address] acti ve 13 PAROXYSMAL ATRIAL FIBRILLATION 01/24/[address] active 14 POST-TRAUMATIC STRESS DISORDER, UNSPECIFIED 01/24/[address] active 15 ULCERATIVE COLITIS, UNSPECIFIED, WITHOUT COMPLICATIONS 01/24/[address] active 16 UNILATERAL PRIMARY OSTEOARTHRITIS, LEFT KNEE 01/24/[address] active 17 UNSPECIFIED DIASTOLIC (CONGESTIVE) HEART FAILURE 01/24/[address] active 18 UNSPECIFIED FALL, SEQUELA 01/24/[address] active 19 WEAKNESS 01/24/[address] active 20 WEDGE COMPRESSION FRACTURE OF T11-T12 VERTEBRA, SUBSEQUENT ENCOUNTER FOR FRACTURE WITH ROUTINE HEALING 01/24/[address] active Reason for Referral No Reasons for Referral Entered Social History Social History Observation Description Start Date End Date Code Code System Current Smoking Status Tobacco smoking consumption unknown 578232515 SNOMED CT Sex Assigned At Female 1950 76339-3 [facility] Vital Signs Code Code System Vitals Name Values and Units Timing Information 8462-4 [facility] Blood Pressure-Diastolic Value=66 Un its=mmHg 01/31/2021 8480-6 [facility] Blood Pressure-Systolic Iazfz=143 Un its=mmHg 01/31/2021 8310-5 [facility] Body Temperature Value=97.3 Units=?? F 01/31/2021 8867-4 [facility] Heart rate Value=70.0 Units=/min 01/2021 88617-1 [facility] Weight Zlzwz=136.2 Units=Lbs 01/2021 9279-1 [facility] Respiratory Rate Value=18.0 Units=/m in 01/31/2021 45808-0 [facility] O2 % BldC Oximetry Value=98.0 Units= % 01/31/2021 73825-0 [facility] Pain Level Value=0.0 01/31/2021 8302-2 [facility] Height Value=60.0 Units=Inches 01/25/2021
--- OUTSIDE RECORDS SUMMARY | 2024-08-18 16:03 | XMS_ITS ---
Author Organization [facility] Address [address] [place] [address] Care Team Providers Care Materials Supervisor Name Role Phone Herson ALANIS, [facility] Primary [facility] Provider Ramses Navarro Jr Unavailable Allergies Allergen (clinical drug ingredient) Drug/Non Drug Allergy documented on EMR Reaction Allergy Type Onset Date Status niacin Niacin Unknown Drug Allergy Active Adhesive Unknown Allergy Active REASON FOR VISIT Patient presents today for gerd, ulcerative Medications Medication SIG (Take, Route, Frequency, Duration) Notes [...] 1 tablet Orally Once a day Active Immunizations Vaccine Route Administration Date Status Comme nts Influenza Unknown 03/28/2024 Refused Social History Tobacco Use: Social History Observation Description Date Details (start date - stop date) Former Smoker NA - NA Tobacco Use/Smoking Question Answer Notes Patient is a former smoker How long has it been since you last smoked? > 10 years Alcohol Screen Question Answer Notes Did you have a drink containing alcohol in the p ast year? No Points 0 Interpretation Negative Vital Signs Temperature 97.7 degrees Fahrenheit 03/28/20 24 Blood pressure systolic 000 mm Hg 03/28/20 24 Blood pressure diastolic 00 mm Hg 024 Height 60 in 03/28/2024 Weight 200 lbs 03/28/2024 BMI 39.06 kg/m2 03/28/2024 Encounters Encounter Location Date Provider Diagnosis [facility] [address] [place] [address] 03/28/2024 Ramses Cunningham Jr Gastroesophageal reflux disease without esophagitis K21.9 and Ulcerative pancolitis without complication K51.00 Assessments Encounter Date Diagnosis (ICD Code) Assessment Notes Treatment Notes Treatment Clinical Notes Section Notes 03/28/2024 Gastroesophageal reflux disease without esophagitis (ICD-10 - K21.9) Gastroesophageal reflux disease material was printed Currently, she is doing well. We discussed gastroesophageal reflux disease today. We discussed diet, lifestyle modifications, and weight management regarding the treatment of reflux. She will continue Dexilant. Colitis remains stable off medications. Followup in 12 months. Today's visit was 30 minutes. 03/28/2024 Ulcerative pancolitis without complication (ICD-10 - K51.00) Currently, she is doing well. We discussed gastroesophageal reflux disease today. We discussed diet, lifestyle modifications, and weight management regarding the treatment of reflux. She will continue Dexilant. Colitis remains stable off medications. Followup in 12 months. Today's visit was 30 minutes. Plan Of Treatment Medication Medication Name Sig Start Date Stop Date Notes Dexlansoprazole 30 MG take one capsule b y mouth every day for 90 days Treatment Notes Assessment Notes Gastroesophageal reflux dise ase without esophagitis Gastroesophageal reflux disease material was printed Next Appt Details Follow Up: 1 Year, Reason: Provider Name:Ramses schmidt , 03/30/2025 03:35:00 PM, [address] [place] [address], [facility] [address], [place], [address], Progress Notes * YANETH MIRANDA MDOB:[birth year] (73 yo F)Acc No.[id number]:03/28/2024 Progress Notes Patient:?YANETH MIRANDA Provider:?Ramses Cunningham MD :1950???Age:73 Y???Sex:Female D ate:03/28/2024 Address:[address] [place], [place] [id number] Pcp:Negrita Bains MD Subjective: * Chief Complaints: * ???1. Patient presents today for gerd, ulcerative. * HPI: ???New symptom(s):? Yaneth is a 73-year-old woman seen today in followup of gastroesophageal reflux disease and ulcerative colitis. Since we saw her last, she's had some issues with vision and was diagnosed with macular degeneration. She did get new glasses which helped. ?Reflux symptoms are under good control on Dexilant 30 mg daily. She has no dysphagia, hematemesis, or melena. ?She did have some symptoms of diarrhea earlier this year and has had problems with dairy. She had some bleeding while on warfarin and Eliquis and has since stopped this. She is transferring her hematological care to [facility]. ?She remains off therapy for ulcerative colitis. Bowel movements are generally 1-2 times per day. There is no rectal bleeding. 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 * Surgical History:?Hysterecto my , Mastoidectomy x2 , 01/26, Rotator cuff repair right shoulder 10/30, Bilateral knee replacements 12/31, Left eye surgery , 01/04, Basal cell carcinoma nose 06/07, Kyphoplasty 04/09, Bioprosthetic aortic and mitral valve replacement 02/18/18, Thoracostomy/pleural effusion 03/11/18, cataracts in both eyes . * Family History:?Father: dece ased.?Mother: .? no known hx of colon ca,polyps or liver ds sister crohns living brother colon cancer . * Social History:?Tobacco Use:?Tobacco Use/Smoking?Patient is a?former smoker,?How long has it been since you last smoked??> 10 years.?Drugs/Alcohol:?Alcohol Screen?Did you have a drink containing alcohol in the past year??No,?Points?0,?Interpretation?Negative.?Miscellaneous:?Marital status: single. Occupation: retired. * Medications:?Taking Nebulize r , Taking Methenamine Hippurate , Taking Breo Ellipta , Taking Torsemide 40 MG Tablet 1 tablet Orally Once a day, Taking Myrbetriq , Taking Ativan 1 MG Tablet 1 tablet at bedtime as needed Orally Once a day, Taking Doxepin HCl 25 MG Capsule 1 capsule at bedtime Orally Once a day, Taking Iron (Ferrous Sulfate) 325 (65 Fe) MG Tablet 1 tablet Orally Three times a Week, Taking Biotin 2.5 MG Tablet 1 tablet Orally Once a day, Taking Vitamin B Complex - Capsule as directed Orally , Taking Magnesium 250 MG Tablet 1 tablet with a meal Orally Once a day, Taking Potassium Chloride 10 MEQ Packet as directed Orally Once a day, Taking Acidophilus - Capsule as directed Orally , Taking Gabapentin 400 MG Capsule 1 tablet Orally Once a day, Taking Lexapro 20 MG Tablet 1 tablet Orally Once a day, Taking Losartan Potassium 25 MG Tablet 1 tablet Orally Once a day, Taking Metoprolol Tartrate 100 MG Tablet 1 tablet with food Orally Twice a day, Taking VESIcare 10 MG Tablet 1 tablet Orally Once a day, Taking zocor 1 tab Oral , Taking Vitamin D 50 MCG (2000 UT) Tablet 1 tablet Orally Once a day, Taking Trimethoprim 100 MG Tablet Oral , Taking Dexlansoprazole 30 MG Capsule Delayed Release TAKE ONE CAPSULE BY MOUTH EVERY DAY , Taking Escitalopram Oxalate 5 MG Tablet Oral , Taking Vitamin C 1000 MG Tablet TAKE ONE TABLET BY MOUTH EVERY DAY Oral , Taking Simvastatin 40 MG Tablet TAKE ONE TABLET BY MOUTH DAILY AT BEDTIME Oral , Taking LORazepam 1 MG Tablet TAKE ONE AND ONE-HALF TABLETS BY MOUTH ONCE A DAY NEEDED. AVOID ALCOHOL,DRIVING OR NARCOTICS WHEN TAKING THIS MEDICATION. Oral , Taking Solifenacin Succinate 10 MG Tablet TAKE ONE TABLET BY MOUTH EVERY DAY Oral , Taking Gemtesa 75 MG Tablet TAKE ONE TABLET BY MOUTH EVERY DAY Oral , Taking FeroSul 325 (65 Fe) MG Tablet TAKE ONE TABLET BY MOUTH TWICE A DAY Oral , Discontinued Warfarin Sodium 10 MG Tablet 1 tablet Orally Once a day, Medication List reviewed and reconciled with the patient * Allergies:?Niacin, Adhesive. Objective: * Vitals:?Wt: 200 lbs, Ht: 60 in, BMI:39.06 Index, BP: 000/00 mm Hg, Temp: 97.7. * Examination: ???General Examination: ???On examination today, she appears well. Skin is anicteric. Lungs are clear. Heart shows regular rate and rhythm. Abdomen is soft without focal mass or tenderness. Extremities are without edema. Assessment: * Assessment: 1.?Gastroesophageal reflux d isease without esophagitis - K21.9 (Primary)?2.?Ulcerative pancolitis without complication - K51.00? Currently, she is doing well . We discussed gastroesophageal reflux disease today. We discussed diet, lifestyle modifications, and weight management regarding the treatment of reflux. She will continue Dexilant. Colitis remains stable off medications. Followup in 12 months. Today's visit was 30 minutes. Plan: * Treatment: * Immunizations:? Influenza (Not administered - Refused: Patient decision) * Procedure Codes:?3017F COLOR ECTAL CA SCREEN DOC REV, G9903 Pt scrn tbco id as non user, G9744 PATIENT NOT ELIG D/T ACTIVE DX HTN * Preventive Medicine:? ??Counseling:?Care goal follow-up plan:?Above Normal BMI Follow-up?Giving encouragement to exercise,?BMI management provided?Yes.? ??Urinary Incontinence:?Urinary Incontinence?Assessment:?Present,?Plan of care documented:?Yes,?Type of plan of care:?Lifestyle interventions.? ??Screenings:?Fall Risk Screening?Fall Risk Assessment:?No falls in the past year,?Screening:?No falls in the past year,?Assessment:?Not performed, no reason specified,?Plan of Care:?Not documented, no reason specified.? * Follow Up:?1 Year * * Sign off status: Completed true * Provider:?Ramses Cunningham MD Date:?1 05/28/2023 Generated for Cherrie kelly/Kristyn/Gaboitting on:?08/18/2024 04:02 PM EDT History and Physical Notes * HPI (History of Present Illness) Category Sub-Category Detail Notes Category Not es New symptom(s) Yaneth is a 73-year-old woman seen today in followup of gastroesophageal reflux disease and ulcerative colitis. Since we saw her last, she's had some issues with vision and was diagnosed with macular degeneration. She did get new glasses which helped. Reflux symptoms are under good control on Dexilant 30 mg daily. She has no dysphagia, hematemesis, or melena. She did have some symptoms of diarrhea earlier this year and has had problems with dairy. She had some bleeding while on warfarin and Eliquis and has since stopped this. She is transferring her hematological care to [facility]. She remains off therapy for ulcerative colitis. Bowel movements are generally 1-2 times per day. There is no rectal bleeding. Examination Category Sub-Category Detail Notes Category Not es General Examination On exami nation today, she appears well. Skin is anicteric. Lungs are clear. Heart shows regular rate and rhythm. Abdomen is soft without focal mass or tenderness. Extremities are without edema.
--- OUTSIDE RECORDS SUMMARY | 2024-08-18 16:03 | XMS_ITS ---
Author Organization [facility] Care Team Providers Care Cable Operator Name Role Phone Newton Pierce Unavailable Unavailable Allergies and adverse reactions Code CodeSystem Substance Reaction Severity StartDate Concern Status Adhesive Bandages Unknown 03/02/2018 act marycruz Care Team Name Role Address Phone Organization Dates Newton Pierce PCP [address], [place], [address], [place] (Office): : [facility] 04/12/2018 - 05/10/2018 Immunizations Immunization Status Vaccine Details Vaccine Code CodeSystem Date Notes Influenza completed Influenza, split virus, trivalent, injectable, contains preservative lotNumber: [id number] expiry: 10/16/2018 Mfg: seqirus Given 0.5 ml intramuscularly 141 CVX created date: 03/03/2018 consent date: 03/05/2018 administer ed date: 03/04/2018 TB 2 Step Mantoux Skin Test completed tuberculin skin test; unspecified formulation Given 0.1 ml Left Forearm intradermally Step 1 of Multi-step with next step required 98 CVX created date: 04/21/2018 consent date: 04/20/2018 administer ed date: 04/21/2018 TB 2 Step Mantoux Skin Test completed tuberculin skin test; unspecified formulation lotNumber: [id number] expiry: 11/22/2019 Mfg: PAR [employer] cc Given 0.1 ml Left Forearm intradermally Step 1 of Multi-step with next step required 98 CVX created date: 04/13/2018 consent date: 04/13/2018 administer ed date: 04/13/2018 TB 2 Step Mantoux Skin Test completed tuberculin skin test; unspecified formulation lotNumber: [id number] expiry: 05/24/2018 Mfg: PAR pharmaceutical Given 0.1 ml Right Forearm intradermally Step 1 of Multi-step with next step required 98 CVX created date: 03/03/2018 consent date: 03/03/2018 administer ed date: 03/03/2018 Educated by laila roberson on 03/03/2018 Mental Status Section Date Assessment Total Score Description 05/10/2018 BIMS 14 cognitively int act CAM 0 No delirium ind icated PHQ-9 01 minimal depress ion 05/06/2018 BIMS 13 cognitively int act PHQ-9 00 Problems Problem # Description Date of onset Resolved Date Code CodeSystem Concern Status 1 ACUTE ON CHRONIC DIASTOLIC (CONGESTIVE) HEART FAILURE 04/12/[address] active 2 DYSPNEA, UNSPECIFIED 04/12/[address] active 3 GASTRO-ESOPHAGEAL REFLUX DISEASE WITHOUT ESOPHAGITIS 04/12/[address] active 4 GENERALIZED ANXIETY DISORDER 04/12/[address] active 5 IRON DEFICIENCY ANEMIA SECONDARY TO BLOOD LOSS (CHRONIC) 04/12/[address] active 6 OTHER ABNORMALITIES OF GAIT AND MOBILITY 04/12/[address] active 7 OTHER INSOMNIA 04/12/[address] active 8 POST-TRAUMATIC STRESS DISORDER, UNSPECIFIED 04/12/[address] active 9 UNILATERAL PRIMARY OSTEOARTHRITIS, LEFT KNEE 04/12/[address] active 10 WEAKNESS 04/12/[address] active 11 ACUTE AND SUBACUTE ENDOCARDITIS, UNSPECIFIED 03/02/[address] active 12 AGE-RELATED OSTEOPOROSIS WITHOUT CURRENT PATHOLOGICAL FRACTURE 03/02/[address] active 13 ATHEROSCLEROTIC HEART DISEASE OF [place] CORONARY ARTERY WITHOUT ANGINA PECTORIS 03/02/[address] active 14 BACTEREMIA 03/02/20 18 04/12/[address] completed 15 ESSENTIAL (PRIMARY) HYPERTENSION 03/02/[address] active 16 HEART FAILURE, UNSPECIFIED 03/02/[address] active 17 HYPERLIPIDEMIA, UNSPECIFIED 03/02/[address] active 18 MAJOR DEPRESSIVE DISORDER, RECURRENT, UNSPECIFIED 03/02/[address] active 19 MUSCLE WEAKNESS (GENERALIZED) 03/02/[address] active 20 ULCERATIVE COLITIS, UNSPECIFIED, WITHOUT COMPLICATIONS 03/02/[address] active 21 UNSPECIFIED ABNORMALITIES OF GAIT AND MOBILITY 03/02/20 18 04/13/[address] completed 22 UNSPECIFIED ASTHMA, UNCOMPLICATED 03/02/[address] active 23 UNSPECIFIED ATRIAL FIBRILLATION 03/02/[address] active 24 UNSPECIFIED LACK OF COORDINATION 03/02/[address] active Reason for Referral No Reasons for Referral Entered Social History Social History Observation Description Start Date End Date Code Code System Current Smoking Status Tobacco smoking consumption unknown 136782287 SNOMED CT Sex Assigned At Female 1950 55593-2 [facility] Vital Signs Code Code System Vitals Name Values and Units Timing Information 07740-6 [facility] Pain Level Value=0.0 05/10/2018 84711-2 [facility] Weight Thsjm=925.3 Units=Lbs 9279-1 [facility] Respiratory Rate Value=16.0 Units=/m in 05/09/2018 8462-4 [facility] Blood Pressure-Diastolic Value=54 Un its=mmHg 05/09/2018 8480-6 [facility] Blood Pressure-Systolic Tfmts=665 Un its=mmHg 05/09/2018 8867-4 [facility] Heart rate Value=72.0 Units=/min 57413-1 [facility] O2 % BldC Oximetry Value=96.0 Units= % 05/09/2018 8310-5 [facility] Body Temperature Value=97.0 Units=?? F 04/28/2018 8302-2 [facility] Height Value=59.5 Units=Inches 04/12/2018
--- OUTSIDE RECORDS SUMMARY | 2024-08-18 16:04 | XMS_ITS | Encounter Summary ---
Author Organization [facility] Address [address] [place] [address] Care Team Providers Care Vat Overhauler Name Role Phone Negrita Bains MD Primary Care Provider [phone] Reason for Visit * Reason Onset Date Comments Med Refill 07/19/2024 Losartan Encounter Details Date Type Department Care Team (Late st Contact Info) Description 07/19/2024 Telephone [facility] [address] [facility] [address] [place] [address] Ivone Coyle, ABIGAIL [address] [facility] [address] [place], [place] [id number] Med Refill (Losartan) Social History Tobacco Use Types Packs/Day Years [...] on file documented as of this encounter Ordered Prescriptions Prescription Sig Dispense Quantity Refills Last Filled Start Date End Date losartan (COZAAR) 25 mg tablet Take 1 tablet (25 mg total) by mouth 1 (one) time each day. 90 tablet 1 07/19/2024 documented in this encounter Progress Notes * Marissa Nils - 07/20/2024 3:19 PM EST Spoke with patient over the phone. Yaneth expressed frustration with the wait time she experiences yesterday afternoon. I explained to her that we did convert to a new EHR back in March. The lack of information that came from the old system to the new is lacking, therefore, staff is having to function in 2 systems at a time. This causes that inflation in wait times. I also went on to explain that we are working to create a better patient experience over the phone with a new and updated phonetree which will allow quicker access for the issue the patient is calling in for. Yaneth already has my direct line and I told her to feel free to call me with any concerns. Additionally, I spoke with Tessie to let her know her know that Yaneth is coming in to see Dr. Espinosa on 08/03 - I go on a 6 week leave on this day. Tessie states Yaneth also has her direct line, and will reiterate on 08/03 to reach out to her with any issues while I am away. * Janna Camacho RN - 07/19/2024 4:09 PM EST Pt called back. She wanted to speak with the energy project manager of our practice stating the pharmacy requestedLosartan a week ago. Yaneth appeared upset stating she was waiting on hold for a long time and rama has been a loyal pt here. I informed pt I sent in Losartan refills today as Olesya from [facility] called today requesting the refills. I asked her to update a BMP to check on her K+ while taking Losartan. She is agreeable.Order placed to [facility] and she will have drawn next month when she comes in a for her visit. * Janna Camacho RN - 07/19/2024 3:40 PM EST Losartan refills sent Left a message on pt's machine for call back * Mich Montiel NP - 07/19/2024 3:37 PM EST yes * Janna Camacho RN - 07/19/2024 3:31 PM EST [facility] 10/30/23, next 08/03/24 w/ Dr. Espinosa Labs 12/14/23 revealed borderline elevated Potassium of 5.1 May I refill Losartan and order a BMP to be updated? * Kita Tyler - 07/19/2024 3:21 PM EST Olesya from [facility] called requesting a refill for Losartan 25 mg, 1 tablet daily, 90 day supply, pharmacy confirmed. documented in this encounter Plan of Treatment Upcoming Encounters Date Type Department Care Team (Late st Contact Info) Description 08/26/2024 2:00 PM EDT Office Visit Pulmonolgy - [place] [address] [facility] [address] [place] [id number] Rosa M Ellsworth MD [address] [facility] [address] [place] [address] Scheduled Orders Name Type Priority Associated Diagnoses Orde r Schedule Basic metabolic panel Lab Routine Hypertension, unspecified type Expected: 07/19/2024, Expires: 07/19/2025 documented as of this encounter Visit Diagnoses Diagnosis Hypertension, unspecified type- Primary documented in this encounter Discontinued Medications Medication Sig Discontinue Reason Start Date End Da te losartan (COZAAR) 25 mg tablet Take 1 tablet (25 mg total) by mouth 1 (one) time each day. Reorder 04/21/2023 07/19/2024 documented as of this encounter Care Teams Vat Overhauler Relationship Specialty Start Date End Date Negrita Bains MD [address] [place] [address] PCP - General Internal Medicine 08/01/24 documented as of this encounter
== END 2024-08-18 13:42 | disposition home or self-care (01) ==
PROVIDERS: PCP Internal Medicine; Visit Provider Physician Assistant
DX: N30.00 Acute cystitis without hematuria (principal)

== ENCOUNTER 2024-09-14 17:11 | Emergency (ER) | payer MEDICARE, MEDICAID, SELFPAY ==
[2024-09-14] VITALS (7 sets, daily range): BP systolic 131–210; BP diastolic 64–108; PULSE 51–65; RESP 14–20; TEMP 36.1–36.7; O2SAT 93–95; BMI 37.4
--- NOTE | ~2024-09-14 | CT_ITS ---
CLINICAL HISTORY: weakness, headaches, high bp CT Brain without contrast Comparison: None FINDINGS: Cortical sulci: There is diffuse prominence of the cortical sulci compatible with age-related atrophy. Ventricles: Normal for age Brain parenchyma: There is patchy lucency throughout the deep white matter indicating chronic microvascular leukomalacia. Lacunar infarct of the left basal ganglia. Extra axial spaces: Normal Posterior Fossa: Normal Extracranial soft tissues: Normal Additional abnormality: Evaluation of the posterior cranial fossa is limited by the artifact from the denture. IMPRESSION: Age-related atrophy with chronic microvascular leukomalacia. Lacunar infarct of the left basal ganglia. No hemorrhage, mass effect, or acute findings identified. This document has been electronically signed by: Preston Pierce MD on 09/14/2024 20:44:36
--- NOTE | ~2024-09-14 | XR_ITS ---
CLINICAL HISTORY: cough, dyspnea 1 view chest x-ray Comparison: None Findings: No consolidation. There is blunting of the right costophrenic angle. Enlargement of the cardiopericardial silhouette. Calcification of the aortic arch. No acute fracture. Sternotomy wires. IMPRESSION: Small right pleural effusion. This document has been electronically signed by: Preston Pierce MD on 09/14/2024 19:33:25
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
--- NOTE | 2024-09-14 17:49 | PC.NURSE ---
Patient presents from home via EMS after son noted elebated blood pressure with assoc FRY, weakness and poor appetite. Patient with an extensive medical history. Please see list. Son at the bedside. monitor and storage bin tender applied and NSR with a BBB. Lungs with right base crackles and a generalized exp wheeze. Abdomen large soft, non-tender with positive bowel sounds. Positive pedal pulses with no edema noted. Pending provider eval.
--- NOTE | 2024-09-14 17:59 | ECG_ITS ---
Test Reason : WEAKNESS Blood Pressure : */* mmHG Vent. Rate : 62 BPM Atrial Rate : 62 BPM P-R Int : 164 ms QRS Dur : 164 ms QT Int : 518 ms P-R-T Axes : 37 263 -23 degrees QTcB Int : 525 ms Artifact in tracing Normal sinus rhythm Right bundle branch block T wave abnormality, consider lateral ischemia Abnormal ECG When compared with ECG of 14-Dec-2023 17:14, No significant change was found Referred By: Liz Snow Electronically Signed By: LEEANNE LIU
[2024-09-14 18:21] LABS: MANUAL DIFF FLAG NO
[2024-09-14 18:22] LABS: Basophils Absolute Auto 0.1 X10*3/uL (0.0-0.2); Eosinophils Absolute Auto 0.3 X10*3/uL (0.0-0.4); Eosinophils Percent Auto 3.5 % (0-4); Hematocrit 39.5 % (37.0-47.0); Hemoglobin 13.5 g/dl (12.0-16.0); Imm Gran Abs Auto 0.02 X10*3/uL (0.00-0.03); Imm Gran Pct Auto 0.2 % (0.0-0.4); Lymphocytes Absolute Auto 1.1 X10*3/uL (1.2-4.9); Lymphocytes Percent Auto 13.2 % (20-40); Mean Corpuscular HGB Conc 34.2 g/dl (31.0-35.0); Mean Corpuscular Hemoglobin 28.9 pg (27.0-33.0); Mean Corpuscular Volume 84.6 fL (80.0-98.0); Mean Platelet Volume 9.9 fL (9.4-12.3); Monocytes Absolute Auto 0.4 X10*3/uL (0.1-1.2); Monocytes Percent Auto 5.2 % (2-11); Neutrophils Absolute Auto 6.4 x10*3/uL (2.0-8.3); Neutrophils Percent Auto 76.9 % (45-73); Platelet Count 206 X10*3/uL (160-400); Red Blood Count 4.67 X10*6/uL (4.20-5.50); Red Cell Distribution Width 12.9 % (11.0-16.0); White Blood Count 8.3 X10*3/uL (4.8-10.8)
[2024-09-14 18:34] LABS: INTERNATIONAL NORM RATIO 1.1 (0.9-1.1); Prothrombin Time 12.6 SEC (10.9-12.4)
[2024-09-14 18:41] LABS: Lactic Acid 0.6 mmol/L (0.5-2.0)
[2024-09-14 18:42] LABS: Alanine Aminotransferase 18 U/L (0-31); Alkaline Phosphatase 67 U/L (39-117); Anion Gap 14 (12-20); Aspartate Amino Transferase 34 U/L (5-31); Bilirubin Total 0.6 mg/dL (0.0-1.0); Blood Urea Nitrogen 12 mg/dL (9-16); Calcium 9.5 mg/dL (8.4-10.2); Carbon Dioxide 26 mmol/L (22-29); Chloride 97 mmol/L (96-108); Creatinine Clr Calc Pharmacy 67.1; Estimated Glomerular Filt Rate > 60; Glucose Random 82 mg/dL (60-115); Magnesium 2.1 mg/dL (1.6-2.6); Potassium 4.9 mmol/L (3.3-5.1); Sodium 132 mmol/L (135-145); Total Protein 6.8 g/dL (6.5-8.0)
[2024-09-14 18:46] LABS: B Type Natriuretic Peptide 1076 pg/mL (<100)
[2024-09-14 18:47] LABS: Troponin-I High Sensitivity 4.2 ng/L (<3.5-17.0)
--- OUTSIDE RECORDS SUMMARY | 2024-09-14 18:49 | XMS_ITS | Data Portability ---
Author Organization [place] - [facility], Allergy Address [address] [place] [address] Care Team Providers Care Breaker Unit Assembler Name Role Phone MARYANNE VALENTIN Primary Care Provider [phone] Assessment Encounter Date Assessment Date Assessment LastModified by Organization Details LastModified Time 09/06/2024 09/06/2024 Audiometric testing today continues to show bilateral hearing loss which should be amenable to amplification. I have given her a copy of her audiogram, medical clearance for amplification and the names of a couple of local audiologists who can program [employer] devices. [email or web address] Not available 09/06/2024 15:10:47 Plan of Treatment Reminders Order Date Submit Date Provider Last Modified By Organization Details Last Modified Time Details Appointments None record ed. Lab None record ed. Referral None record ed. Procedures None record ed. Surgeries None record ed. Imaging None record ed. Medication Orders None record ed. Patient TargetsNo targets recorded. Patient InstructionsNo instructions recorded. Reason for Referral None Reported. Results Created Date Observation Date Name Description Value Unit Range Abnormal Flag Note LastModifiedBy Organization Detail LastModifiedTime 09/08/19 25 audio gram No observ ation record ed. BARCODE Not Available 2024 11:12:34 Result Notes None recorded. Problems Name Problem SNOMED Code Status Onset Date Resolution Date Notes Provider Name and Address Organization Details Recorded Time Postmasto idectomy complicat ion 58565685 Active 2023 Other disorders following mastoidec ioana, left ear; Note: Date Diagnosed : 06/10/2023 1:36 PM (H95.192) Not Available [facility] 02:30:20 Impacted cerumen of bilateral ears [id number] 65797 Active 2021 Impacted cerumen, bilateral ; Note: Changed from H61.22 to H61.23 ( 4 1:42 PM) , Date Diagnosed : 11/05/2021 3:17 PM (H61.22) Not Available [facility] 4 02:30:29 Mixed conductiv e and sensorine ural hearing loss of left ear 94738794195 107 Active 2018 Mixed conductiv e and sensorine ural hearing loss, unilatera l, left ear with restricte d hearing on the contralat eral side; Note: Date Diagnosed : 12/08/2018 2:17 PM (H90.A32) Not Available [facility] 4 02:30:22 Sensorine ural hearing loss in right ear 98634382165 100 Active 2018 Sensorine ural hearing loss, unilatera l, right ear, with restricte d hearing on the contralat eral side; Note: Date Diagnosed : 12/08/2018 2:17 PM (H90.A21) Not Available [facility] 4 02:30:18 Severe obesity 24626422241 104 Active 2023 Morbid (severe) obesity due to excess calories; Note: Date Diagnosed : 08/03/2023 2:28 PM (E66.01) Not Available [facility] 4 02:30:13 Asthma 772940222 Active 2023 Other asthma; Note: Date Diagnosed : 08/03/2023 2:25 PM (J45.998) Not Available [facility] 4 02:30:20 Dysphonia 32590802 Active 2023 Hoarsenes s; Note: Date Diagnosed : 08/03/2023 2:25 PM (R49.0) Not Available [facility] 4 02:30:25 Dysphagia 58411418 Active 2023 Dysphagia , pharyngoe sophageal phase; Note: Date Diagnosed : 08/03/2023 2:25 PM (R13.14) Not Available [facility] 4 02:30:29 Problem Notes None recorded. Procedures Surgical History Date Name Laterality Status Provider Name and Address Organization Details Recorded Time Air & Speech Audio with Tymps (43812, 38083 & 09832) completed CARSON ALCALA [address] [facility],[place] [address], [place], [address], [facility] 09/06/2024 15:23:19 Debridement of Mastoid Cavity left completed ALBERTO FAJARDO MD [address] [facility],[address], [address], [facility] 09/06/2024 15:08:30 Imaging Results Imaging Date Name Status LastModified by [facility] Details LastModified Time 09/07/2024 audiogram completed BARCODE Information no t available 09/07/2024 11:12:34 Procedure Notes None recorded. Medical Equipment None Reported. Allergies Allergen ID Allergen Name Allergen Category Reaction Reaction Severity Criticality Documentation Date Start Date Code Code System Note Provider Name and Address Organization Details Recorded Time 281218 adhesive tape environme nt,medica tion Not available Not available Not available 09/06/2024 68130 UNK Cris omses [facility] 14:49:32 Medications Name Sig Start Date Stop Date Status Note LastModified by Organization Details LastModified Time furosemid e 40 mg tablet 06/10 completed Medicati on ID: [id number] B rand Name: furosemi de Send Method: E-Prescr ibed Sub s Allowed: subs OK Medic ationGen ericName : furosemi de Not Available Not Available Not Available torsemide 20 mg tablet active Medicati on ID: [id number] B rand Name: torsemid e Send Method: E-Prescr ibed Sub s Allowed: subs OK Speci al Instruct ion: TAKE ONE TABLET BY MOUTH EVERY DAY Medi cationGe nericNam e: torsemid e Not Available Not Available Not Available tizanidin e 2 mg tablet 06/10 completed Medicati on ID: [id number] B rand Name: tizanidi ne Send Method: E-Prescr ibed Sub s Allowed: subs OK Medic ationGen ericName : tizanidi ne Not Available Not Available Not Available cetirizin e 10 mg tablet TAKE ONE TABLET BY MOUTH EVERY DAY NEEDED FOR ALLERGY SYMPTOMS 04/15 /2025 completed Not Available Not Available Not Available metoprolo l tartrate 100 mg tablet TAKE ONE TABLET BY MOUTH TWICE A DAY active Not Available Not Available No t Available fluconazo le 150 mg tablet TAKE 1 TABLET BY MOUTH EVERY 3 DAYS FOR 2 DOSES 09/06 completed Not Available Not Available Not Available doxepin 25 mg capsule TAKE ONE CAPSULE BY MOUTH EVERY EVENING FOR INSOMNIA , ANXIETY 09/06 completed Not Available Not Available Not Available quetiapin e 200 mg tablet 06/10 completed Medicati on ID: [id number] B rand Name: quetiapi ne Send Method: E-Prescr ibed Sub s Allowed: subs OK Medic ationGen ericName : quetiapi ne Not Available Not Available Not Available potassium chloride ER 10 mEq tablet,ex tended release TAKE ONE TABLET BY MOUTH EVERY DAY active Not Available Not Available No t Available trimethop rim 100 mg tablet 06/10 completed Medicati on ID: [id number] B rand Name: trimetho prim Sen d Method: E-Prescr ibed Sub s Allowed: subs OK Speci al Instruct ion: TAKE 1 TABLET BY MOUTH EVERYDAY AT BEDTIME Medicati onGeneri cName: trimetho prim Not Available Not Available Not Available doxepin 10 mg capsule TAKE ONE CAPSULE BY MOUTH DAILY AT BEDTIME FOR INSOMNIA 09/06 completed Not Available Not Available Not Available Ciloxan 0.3 % eye drops 09/06 completed Medicati on ID: [id number] D uration Value: 14 Prescri bed By Name: Santy Woodard MD Brand Name: Ciloxan Send Method: E-Prescr ibed Sub s Allowed: subs OK Speci al Instruct ion: 4 drops into affected ear BID X 14 days Med icationG enericNa me: Ciloxan Not Available Not Available Not Available sulfameth oxazole 800 mg-trimet hoprim 160 mg tablet TAKE ONE TABLET BY MOUTH TWICE A DAY FOR 5 DAYS 09/06 completed Not Available Not Available Not Available tramadol 50 mg tablet 06/10 completed Medicati on ID: [id number] B rand Name: tramadol Send Method: E-Prescr ibed Sub s Allowed: subs OK Medic ationGen ericName : tramadol Not Available Not Available Not Available triamcino lone acetonide 0.1 % topical cream APPLY TO AFFECTED AREA S) TWO TIMES DAILY 09/06 completed Not Available Not Available Not Available simvastat in 40 mg tablet TAKE ONE TABLET BY MOUTH DAILY AT BEDTIME active Not Available Not Available No t Available PreviDent 0.2 % dental solution 09/06 completed Medicati on ID: [id number] B rand Name: PreviDen t Send Method: E-Prescr ibed Sub s Allowed: subs OK Speci al Instruct ion: RINSE DAILY EVERY EVENING AND SPIT OUT DIRECTED . DO NOT RINSE WITH WATER AFTERWAR DS Medic ationGen ericName : PreviDen t Not Available Not Available Not Available ketorolac 0.5 % eye drops INSTILL 1 DROP INTO THE AFFECTED EYE S) THREE TIMES DAILY. START 2 DAYS PRIOR TO SURGERY AND CONTINUE DIRECTED 09/06 completed Not Available Not Available Not Available methenami ne hippurate 1 gram tablet TAKE ONE TABLET BY MOUTH EVERY DAY active Not Available Not Available No t Available Vitamin C 1,000 mg tablet TAKE ONE TABLET BY MOUTH EVERY DAY active Not Available Not Available No t Available nitrofura ntoin macrocrys denisse 100 mg capsule 06/10 completed Medicati on ID: [id number] B rand Name: nitrofur antoin macrocry stal Sen d Method: E-Prescr ibed Sub s Allowed: subs OK Medic ationGen ericName : nitrofur antoin macrocry stal Not Available Not Available Not Available losartan 25 mg tablet TAKE ONE TABLET BY MOUTH EVERY DAY active Not Available Not Available No t Available gabapenti n 300 mg capsule TAKE ONE CAPSULE BY MOUTH THREE TIMES A DAY active Not Available Not Available No t Available mirtazapi ne 15 mg tablet 06/10 completed Medicati on ID: [id number] B rand Name: mirtazap ine Send Method: E-Prescr ibed Sub s Allowed: subs OK Medic ationGen ericName : mirtazap ine Not Available Not Available Not Available lorazepam 1 mg tablet TAKE ONE TABLET BY MOUTH EVERY EVENING DIRECTED AND 1/2 TABLET ONCE DAILY NEEDED FOR ANXIETY 2024 active Not Available Not Available Not Avai lable cefuroxim e axetil 500 mg tablet TAKE ONE TABLET BY MOUTH EVERY 12 HOURS 09/06 completed Not Available Not Available Not Available estradiol 0.01% (0.1 mg/gram) vaginal cream APPLY PEA-SIZE D AMOUNT TO URETHRA THREE TIMES A WEEK DIRECTED 09/06 completed Not Available Not Available Not Available zolpidem 10 mg tablet 06/10 completed Medicati on ID: [id number] B rand Name: zolpidem Send Method: E-Prescr ibed Sub s Allowed: subs OK Medic ationGen ericName : zolpidem Not Available Not Available Not Available Vitamin D2 1,250 mcg (50,000 unit) capsule 2018 active Medicati on ID: [id number] B rand Name: Vitamin D2 Send Method: E-Prescr ibed Sub s Allowed: subs OK Speci al Instruct ion: TAKE ONE CAPSULE BY MOUTH ONCE WEEKLY M wilda Arshaddre Name: Vitamin D2 Not Available Not Available Not Available fluticaso ne propionat e 50 mcg/actua tion nasal spray,izzy pension ADMINIST ER 1 SPRAY INTO EACH NOSTRIL 1 TIME EACH DAY.HEIDI E GENTLY.P RIME BEFORE FIRST USE.NERY N TIP AND REPLACE CAP AFTER USE. 09/06 completed Not Available Not Available Not Available doxycycli ne hyclate 100 mg tablet TAKE ONE TABLET BY MOUTH TWICE A DAY FOR 14 DAYS 09/06 completed Not Available Not Available Not Available naproxen 500 mg tablet TAKE ONE TABLET BY MOUTH TWICE A DAY 09/06 completed Not Available Not Available Not Available amoxicill in 500 mg-potass ium clavulana te 125 mg tablet TAKE ONE TABLET BY MOUTH EVERY 8 HOURS FOR 10 DAYS 09/06 completed Not Available Not Available Not Available ciclopiro x 0.77 % topical cream APPLY ONCE DAILY UNDER BREASTS, GROIN AND ABDOMINA L FOLDS. 09/06 completed Not Available Not Available Not Available escitalop karthikeyan 20 mg tablet TAKE ONE TABLET BY MOUTH EVERY DAY TAKE WITH 5MG TABLET) active Not Available Not Available No t Available Jantoven 2 mg tablet 06/10 completed Medicati on ID: [id number] B rand Name: Jantoven Send Method: E-Prescr ibed Sub s Allowed: subs OK Speci al Instruct ion: TAKE 1-2 TABLETS BY MOUTH DAILY DIRECTED BY [facility] icaalden Delroy me: Jantoven Not Available Not Available Not Available escitalop karthikeyan 5 mg tablet TAKE ONE TABLET BY MOUTH EVERY DAY FOR DEPRESSI ON/ANXIE TY WITH 20MG TAB) active Not Available Not Available No t Available nitrofura ntoin monohydra te/macroc rystals 100 mg capsule TAKE ONE CAPSULE BY MOUTH EVERY 12 HOURS WITH FOOD FOR 7 DAYS 09/06 completed Not Available Not Available Not Available solifenac in 10 mg tablet TAKE ONE TABLET BY MOUTH EVERY DAY active Not Available Not Available No t Available aripipraz ole 2 mg tablet TAKE ONE TABLET BY MOUTH EVERY DAY FOR MOOD AUGEMENT ATION 09/06 completed Not Available Not Available Not Available FeroSul 325 mg (65 mg iron) tablet TAKE ONE TABLET BY MOUTH TWICE A DAY active Not Available Not Available No t Available dexlansop razole 30 mg capsule,b iphase delayed release TAKE ONE CAPSULE BY MOUTH EVERY DAY 2024 active Not Available Not Available Not Avai lable Dexilant 60 mg capsule, delayed release 06/10 completed Medicati on ID: [id number] B rand Name: Dexilant Send Method: E-Prescr ibed Sub s Allowed: subs OK Medic ationGen ericName : Dexilant Not Available Not Available Not Available Myrbetriq 25 mg tablet,ex tended release active Medicati on ID: [id number] B rand Name: Myrbetri q Send Method: E-Prescr ibed Sub s Allowed: subs OK Medic ationGen ericName : Myrbetri q Not Available Not Available Not Available Eliquis 5 mg tablet TAKE ONE TABLET BY MOUTH TWICE A DAY 09/06 completed Not Available Not Available Not Available Breo Ellipta 100 mcg-25 mcg/dose powder for inhalatio n 09/06 completed Medicati on ID: [id number] B rand Name: Breo Ellipta Send Method: E-Prescr ibed Sub s Allowed: subs OK Speci al Instruct ion: INHALE ONE PUFF BY MOUTH EVERY DAY Medi cationGe nericNam e: Breo Ellipta Not Available Not Available Not Available Anoro Ellipta 62.5 mcg-25 mcg/actua tion powder for inhalatio n INHALE 1 PUFF BY MOUTH ONE TIME EACH DAY. active Not Available Not Available No t Available Belsomra 5 mg tablet TAKE ONE-HALF TO ONE TABLET BY MOUTH AT BEDTIME NEEDED.T CHUY 1/2 TO START,IN CREASE TO 1 TABLET IF NECESSAR Y 09/06 completed Not Available Not Available Not Available Gemtesa 75 mg tablet TAKE ONE TABLET BY MOUTH EVERY DAY active Not Available Not Available No t Available Vitals None Recorded Social History None recorded. Functional Status None recorded. Mental Status None recorded. Family History Nothing Reported. Medical History Condition Response Allergies/Hayfever Y Anemia Y Arthritis Y Anxiety Y GERD/Reflux Y High Cholesterol Y Stroke Y Hypertension Y Depression Y Asthma Y Gynecological HistoryNo gynecological history recorded. Obstetrics History GPAL:G 0 P 0 0 0 0 Past Encounters Encounter ID Performer Location Encounter Start Date Encounter Closed Date Diagnosis/Indication Diagnosis SNOMED-CT Code Diagnosis ICD10 Code Diagnosis Note [id number] ALBERTO FAJARDO MD [facility] [address] [address] 09/06/2024 14:30:24 09/06/2024 15:27:53 Postmastoidectomy complication 11532133 H95.192 Left canal wall down mastoidect anh was debrided of accumulate d squamous debris. No signs of acute or chronic inflammati on. No signs of prosthesis dislodgmen t or other mobile anomalies. Follow-up in 1 year for next mastoid debridemen t Mixed cond uctive and sensorineural hearing loss of left ear 6477307103 9107 H90.A32 Sensorineu ral hearing loss in right ear 4854734244 9100 H90.A21 Right Ear:Modera tely-sever e SNHL with good speech discrimina tion.Type A tympanogra m.Left Ear:Modera te to severe MHL with good speech discrimina tion.Type B tympanogra m. [id number] CARSON ALCALA [facility] [address] [address] 09/06/2024 15:15:11 09/12/2024 11:27:39 Mixed conductive and sensorineural hearing loss of left ear 8429268868 9107 H90.A32 Sensorineu ral hearing loss in right ear 4358632086 9100 H90.A21 Right Ear:Modera tely-sever e SNHL with good speech discrimina tion.Type A tympanogra m.Left Ear:Modera te to severe MHL with good speech discrimina tion.Type B tympanogra m. Health Concerns Section Related Observation LastModified by Organization Detai ls LastModified Time None Recorded Concern Status LastModified by Organization Details LastModified Time None Recorded Advance Directives Directive None Recorded Payers Encounter Date Sequence Insurance Name Policy Number Policy Chiu Covered Member ID Chiu Member ID Guarantor Name 09/06/2024 1 [place] [facility] Yaneth Rodriguez [id number] Yaneth Rodriguez 09/06/2024 2 [place] [facility] Yaneth Rodriguez [id number] Yanethra Uzma Daviserson 09/06/2024 1 [place] [facility] Yaneth Daviserson [id number] Yaneth Gusman Rodriguez 09/06/2024 2 [place] [facility] Yaneth Gusman Michael [id number] Yaneth Rodriguez Notes Date Note Type Note Provider Name and Address Organization Details Recorded Time 09/06/2024 text/html Patient with left-sided canal wall down mastoidectomy cavity comes in for mastoid debridement. Patient has hearing loss amenable to amplification. At her last visit she told me that she was gifted a pair of Sofiya hearing aids. I recommended she meet with a local boring machine operator production to have the hearing aids adjusted to match her hearing aids. She lost this paperwork and wants to have her hearing test updated so that she can have the hearing aids adjusted. No recent pain or discharge. She feels like something is knocking around in there in the left ear. ALBERTO FAJARDO MD [address] [place] [address], [phone], [facility] - [facility] 09/06/2024 16:02:07 OBGyn Episode No OBEpisode recorded.
--- OUTSIDE RECORDS SUMMARY | 2024-09-14 18:49 | XMS_ITS | Encounter Summary ---
Author Organization [facility] [place] [address] Care Team Providers Care Flatware Maker Name Role Phone Negrita Bains MD Primary Care Provider [phone] Encounter Details Date Type Department Care Team (Late st Contact Info) Description 08/30/2024 Telephone [facility] - [facility] [address] [facility] [address] [place] [address] Madeline Espinosa MD [address] [place] [address] Social History Tobacco Use Types Packs/Day Years [...] as of this encounter Progress Notes * Angelic Sheikh MA - 08/31/2024 12:[address] Espinosa I called and spoke to Sherley at Dr. Knight's office and the patients last visit was 04/13/24 and her next follow up is 11/16/24. The note from 04/13/25 is scanned in with the records that Mariela scanned in. * Madeline Espinosa MD - 08/30/2024 11:22 PM EDT Hey did we ever get notes from [facility] about recent hospitalizations? Also, can we get most recent notes from her neurologist Dr Knight. Also, can we remind her to get labs drawn? I've reordered labs-may need to be faxed to her lab of choice. documented in this encounter Plan of Treatment Upcoming Encounters Date Type Department Care Team (Late st Contact Info) Description 12/14/2024 3:45 PM EDT Office Visit [facility] [place] [address] [place] [address] Rosa M Ellsworth MD [address] [place] [address] 12/28/2024 1:40 PM EDT Office Visit [facility] - [address] [place] [address] Ivone Coyle, ABIGAIL [address] [place] [address] Scheduled Orders Name Type Priority Associated Diagnoses Orde r Schedule Basic metabolic panel Lab Routine Paroxysmal atrial fibrillation ([facility] V24, [facility]/HCC V28) 1 Occurrences starting 08/30/2024 until 08/30/2025 CBC and differential Lab Routine Paroxysmal atrial fibrillation ([facility] V24, [facility]/H[facility] V28) 1 Occurrences starting 08/30/2024 until 08/30/2025 Prothrombin time with INR Lab Routine Paroxysmal atrial fibrillation ([facility] V24, [facility] V28) 1 Occurrences starting 08/30/2024 until 08/30/2025 Scheduled Procedures Name Priority Associated Diagnoses Date/Ti me LOOP RECORDER INSERTION Atrial fibrillation, unspecified type ([facility] V24, [facility] V28) documented as of this encounter Visit Diagnoses Diagnosis Paroxysmal atrial fibrillation ([facility] V24, [facility] V28)- Primary Atrial fibrillation documented in this encounter Care Teams Flatware Maker Relationship Specialty Start Date End Date Negrita Bains MD [address] [place] [id number] PCP - General Internal Medicine 08/01/24 documented as of this encounter
--- OUTSIDE RECORDS SUMMARY | 2024-09-14 18:49 | XMS_ITS | Clinical Summary ---
Author Organization [facility] Address [address] [place] [phone] Phone Care Team Providers Care Technical Stenographer Name Role Phone Negrita Bains MD Primary Care Provider [phone] Allergies Active Allergy Reactions Criticality Noted Date [...] a day. 180 tablet 2 5 Active losartan (COZAAR) 25 mg tablet Take 1 tablet (25 mg total) by mouth 1 (one) time each day. 90 tablet 1 5 Active ARIPiprazole (Abilify) 2 mg tablet Take 1 tablet (2 mg total) by mouth 1 (one) time each day. Active umeclidinium-vi lanteroL (Anoro Ellipta) 62.5-25 mcg/actuation inhaler Inhale 1 puff by mouth 1 (one) time each day. 1 each 5 08/27/19 26 Active fluticasone propionate (FLONASE) 50 mcg/actuation nasal spray Administer 1 spray into each nostril 1 (one) time each day. Shake gently. Before first use, prime pump. After use, clean tip and replace cap. 16 g 5 08/27/19 26 Active Eliquis 5 mg tablet Take 1 tablet (5 mg total) by mouth 2 (two) times a day. 4 Active aspirin 81 mg EC tablet Take 1 tablet (81 mg total) by mouth. 0 Active calcium carbonate-vitam in D 500 mg-5 mcg (200 unit) per tablet 1 tab, Tab, Oral, BIDWLS, Refills 0 6 Active cefuroxime (CEFTIN) 500 mg tablet Take 1 tablet (500 mg total) by mouth every 12 (twelve) hours. 5 Active ciclopirox (LOPROX) 0.77 % cream 5 Active cetirizine (ZyrTEC) 10 mg tablet TAKE ONE TABLET BY MOUTH EVERY DAY NEEDED FOR ALLERGY SYMPTOMS 4 Active cholecalciferol (VITAMIN D-3) 50 mcg (2,000 unit) tablet 1 tablet (2,000 Units total) 1 (one) time each day at the same time. Active magnesium oxide 250 mg magnesium tablet 1 tablet (250 mg total) 1 (one) time each day at the same time. Active Belsomra 5 mg tablet TAKE ONE-HALF TO ONE TABLET BY MOUTH AT BEDTIME NEEDED.TAKE 1/2 TO START,INCREASE TO 1 TABLET IF NECESSARY 5 Active Active Problems Problem Noted Date Diagnosed Date Asthma 10/14/2022 Back pain 10/14/2022 Chronic interstitial cystitis 10/14/2022 Osteoporosis 10/14/2022 Pleural effusion, right 10/14/2022 Post-pericardiotomy syndrome 10/14/2022 Posttraumatic stress disorder 10/14/2022 Sacroiliitis ([facility] V24) 10/14/2022 Overview (04/12/2024): Last Assessment & Plan: [...] will arrange for an SI joint injection. Assessment & Plan (09/01/2024 4:30 PM EDT): Ms. Rodriguez describes right sided low back or buttock pain very similar to what she had in the left side that was successfully treated with an injection in the SI joint. Says that she has had this pain for over a year and it has been progressive. It makes it hard for her to lift her foot up off the ground when she is walking. She is taking NSAIDs without relief. On exam she had good strength to confrontation in the lower extremities. She had pain with palpation of the right SI joint and a positive Jonathan's maneuver, and a positive SI joint compression test, and a positive Gaenslen's test all on the right. She would like to go for an injection and I think that this is reasonable. We will arrange for it. She can follow-up with us afterwards. Severe obesity ([facility] V24, [facility] V28) 2022 Ulcerative colitis ([facility] V24, [facility] V28) (HFpEF) heart failure with p reserved ejection fraction ([facility] V24, [facility] V28) 06/17/2022 Overview (08/30/2024): Assessment & Plan (08/30/2024 11:21 PM EDT): Euvolemic on exam on current diuretic therapy. Continue current torsemide dosing. However, she has had no blood work done in over 6 months. - Order basic blood work to update medical records. - Send results to primary care physician for review. Wedge fracture of thoracic v ertebra ([facility] V24, [facility] V28) 01/24/2021 Atrial fibrillation ([facility] V24, [facility] V28) 0 11/19/2020 Overview (08/30/2024): previously anticoagulated with Coumadin but has had complications of severe hematuria in the past; is very uncertain based on our lack of access to [facility] records how much A-fib she truly has -Admitted at [facility] in August 2019 for for both GI and bleeding-EGD during that admission showed normal upper endoscopy -At her last visit with Ivone Coyle NP in October 2023, the idea of both watchman and reinitiation of anticoagulation were both addressed but at the time, the patient did not want either Assessment & Plan (08/30/2024 11:21 PM EDT): Now with possible history of transient ischemic attack (TIA): Further investigation is warranted. Episodes of garbled speech, vision problems, and numbness in hands, occurring 3 times in the past 2 weeks. No blood clots found during previous hospitalization in 2023. High blood pressure mimicked stroke symptoms-possible PRES. - Implant an implantable loop recorder (ILR) to assess for irregular rhythms. - For now continue baby aspirin. - Request results from [facility]. - Will try to communicate with Dr. Stewart, neurologist. Orders: ECG 12 lead Case Request EP Lab: Loop recorder insertion Hyperlipidemia 11/19/2020 Overview (04/12/2024): Last Assessment & [...] We will order this at first available. Endocarditis 11/15/2020 Overview (08/30/2024): - following dental work status post bioprosthetic aortic and mitral valve replacements in 01/2018 with mitral valve annular reconstruction -Procedure complicated by right ventricular rupture status post repair - Patient's most recent echocardiogram is from 09/2022 showing normal LVEF 60- 65%, mild to moderate concentric LVH, right ventricle not well-visualized, bioprosthetic aortic valve well-seated with mild prosthetic aortic valve stenosis with peak/mean gradient of 20.4/12 mmHg, prosthetic mitral valve well-seated and functioning normally with trace MR and mean gradient of 5-6 mmHg at a heart rate of 55 bpm, elevated PASP 64 mmHg and ascending aortic dilatation 4.1 cm. When compared to the echocardiogram from 02/2022 there is been minimal increase in the gradients across her bioprosthetic aortic and mitral valves. Fatigue 08/16/2020 Overview (04/12/2024): Last Assessment & [...] echocardiogram. Continue periodic surveillance and SBE prophylaxis. Assessment & Plan (08/30/2024 11:21 PM EDT): See above. Hx of aortic valve replacement 08/16/2020 Overview (04/12/2024): Last Assessment & Plan: The patient's bioprosthetic aortic valve replacement is normally functioning on most recent echocardiogram. Continue periodic surveillance and SBE prophylaxis Assessment & Plan (08/30/2024 11:21 PM EDT): Known murmur of mild prosthetic aortic stenosis. Echocardiogram done at [facility]. - Request results from [facility]. Hypertension 08/16/2020 Overview (04/12/2024): Last Assessment & Plan: Patient's blood pressure is well-controlled in office today. Continue diuretic, beta-bryan and ARB Assessment & Plan (08/30/2024 11:21 PM EDT): Blood pressure at home usually reads around 130-140 mmHg. - Continue current blood pressure medications. - Monitor blood pressure at home to ensure it remains within the target range. Shortness of breath on exertion 08/16/2020 Overview [...] repeat her echocardiogram. Fracture of thoracic spine ([facility] V24, [facility] V28) 05/26/2018 Osteoarthritis of knee 04/12/2018 Gastroesophageal reflux disease without esophagi tis 04/12/2018 Resolved Problems Problem Noted Date Diagnosed Date Resolved Date Chronic diastolic heart fail ure ([facility] V24, CMS/HCC V28) 10/14/2022 08/30/2024 Congestive heart failure ([facility] /[facility] V24, [facility] V28) 11/15/2020 08/30/2024 Overview (04/12/2024): Congestive heart failure Last Assessment & Plan: Her volume status appears acceptable at this time. I will not make any changes to her diuretic therapy. She will call the office for weight gain of more than 3 pounds in 1 day or 5 pounds in 1 week. She does not seem overly compliant with a low-salt diet and I recommend this. Encounters Date Type Department Care Team Description 09/01/2024 2:30 PM EDT Office Visit [facility] [address] [place] [phone] Michael Sweet PA Sacroiliitis (CMS/HCC V24) (Primary Dx) 08/30/2024 1:11 PM EDT - 08/30/2024 11:59 PM EDT Hospital Encounter [facility] - [place] [address] [place] [address] Chronic obstructive pulmonary disease, unspecified COPD type (CMS/HCC V24, CMS/HCC V28) Discharge Disposition: Home or Self Care 08/30/2024 Telephone [facility] - [facility] [address] [facility] [address] [place] [phone] Madeline Machuca MD 08/26/2024 2:00 PM EDT Office Visit [facility] [address] [place] [phone] Rosa M Ellsworth MD Chronic obstructive pulmonary disease, unspecified COPD type (CMS/HCC V24, CMS/HCC V28) (Primary Dx); Chronic heart failure with preserved ejection fraction (CMS/HCC V24, CMS/HCC V28); Pleural effusion, right; Hypoxemia 08/25/2024 Telephone [facility] [address] [facility] [address] [place] [phone] Solange [place], [place] 08/04/2024 Telephone [facility] - [facility] [address] [place] [phone] Negrita Bains MD Medical Records 08/03/2024 1:00 PM EDT Office Visit [facility] - [facility] [address] [facility] [address] [place] [phone] Madeline Machuca MD Atrial fibrillation, unspecified type (CMS/HCC V24, CMS/HCC V28) (Primary Dx); Chronic heart failure with preserved ejection fraction (CMS/HCC V24, [facility] V28); Hx of aortic valve replacement; H/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; Primary hypertension 07/19/2024 Telephone [facility] - [facility] [address] [facility] [address] [place] [address] Ivone Coyle NP Med Refill (Losartan) from Last 3 Months Immunizations Name Administration Dates Next Due Influenza Quadravalent, 0.5m l (Fluad) 65yo and older 03/05/2022 Influenza Quadravalent, 0.5m l (Fluzone High-dose) 65yo and older 04/12/2018 Influenza trivalent, with preservative (Fluzone; Afluria) 6mo and older 03/06/2021,03/10/2020,03/08/2019,2017,03/04/2017 Moderna SARS-CoV-2 COVID-19, mRNA, LNP-S, preservative free 08/27/2020 Tuberculin Skin Test; Unspec ified Formulation 04/20/2018,04/13/2018,03/03/2018 Surgical History Surgery Date Site/Laterality Comments HYSTERECTOMY 01/23/1993 - 02/21/1993 N/A MASTOID SURGERY 10/23/1993 - 11/21/1993 N/A MASTOID SURGERY 01/24/2004 - 02/22/2004 ROTATOR CUFF REPAIR 10/24/2007 - 11/22/2007 Right TOTAL KNEE ARTHROPLASTY 12/23/2008 - 01/22/2009 Left KNEE ARTHROSCOPY 12/23/2009 - 01/22/2010 Right KYPHOSIS SURGERY 03/25/2016 - 04/23/2016 N/A L2 L5 KYPHOSIS SURGERY 04/24/2016 - 05/24/2016 L1 L3 KYPHOSIS SURGERY 09/22/2016 - 10/22/2016 L4 CARDIAC SURGERY 02/18/2018 Valve replacement Medical History Medical History Date Comments Macular degeneration Anemia Congestive heart failure (CHF) (CMS/HCC V24, [facility] /[facility] V28) Ulcerative colitis (CMS/HCC V24, [facility] V28) Asthma Back pain Anxiety Depression Hypertension High cholesterol Interstitial cystitis Arthritis Osteoporosis Achilles tendonitis Bursitis shoulder/hip/sheryl ls Hiatal hernia Diastasis recti Diverticulosis Hx of thyroid nodule Family History Medical History Relation Name Comments Stroke Father Other: pacemaker Mother Stroke Mother Relation Name Status Comments Father Mother Social History Tobacco Use Types Packs/Day Years Used Date Smoking Tobacco: Former Passive Smoke Exposure: Never Smokeless Tobacco: Never Tobacco Cessation:Counseling Given: Not Answered Alcohol Use Standard Drinks/Week Comments No 0 (1 standard drink = 0.6 oz pur e alcohol) Comments Unknown Sex and Gender Information Value Date Recorded Sex Assigned at Not on file Legal Sex Female 7:28 PM EST Gender Identity Not on file Sexual Orientation Not on file Obstetrics History Last Filed Vital Signs Vital Sign Reading Time Taken Comments Blood Pressure 147/89 08/26/2024 2:15 PM EDT Pulse 51 08/26/2024 2:15 PM EDT Temperature 36.7 ??C (98 ??F) 08/26/2024 2:15 PM EDT Respiratory Rate 20 08/26/2024 2:15 PM EDT Oxygen Saturation 95% 08/26/2024 2:15 PM EDT Inhaled Oxygen Concentration - - Weight 89.8 kg (198 lb) 09/01/2024 2:48 PM EDT Height 152.4 cm (5') 09/01/2024 2:48 PM EDT Body Mass Index 38.67 09/01/2024 2:48 PM EDT Plan of Treatment Upcoming Encounters Date Type Department Care Team (Late st Contact Info) Description 12/14/2024 3:45 PM EDT Office Visit [facility] - [place] [address] [place] [phone] Rosa M Ellsworth MD [address] [facility] [address] [place] [address] 12/28/2024 1:40 PM EDT Office Visit [facility] - [facility] [address] [facility] [address] [place] [phone] Ivone Coyle NP [address] [place] [address] Scheduled Procedures Name Priority Associated Diagnoses Date/Ti me LOOP RECORDER INSERTION Atrial fibrillation, unspecified type (CMS/HCC V24, CMS/HCC V28) Health Maintenance Due Date Last Done Comments [...] Influencers of Health Screening 05/03/2022 RSV Immunization Adult Patients (1 - 1-dose 75+ series) 12/23/2023 COVID-19 Vaccine ( season) 2024 03/28/2021, 09/24/2020, 08/27/2020 Hypertension/CHF/CAD Annual BMP Blood Test 02/27/2024 02/26/2023, 02/26/2023 Influenza Vaccine (Season Ended) 2025 03/05/2022, 03/06/2021, 03/10/2020, Additional history exists Cholesterol Screening (Lipid Panel) 06/26/2026 06/26/2021 HIB [...] age to complete this topic Meningococcal B Vaccine Aged Out No l onger eligible based on patient's age to complete this topic RSV Immunization Patients Under 20 months Aged Out No longer eligible based on patient's age to complete this topic Varicella Vaccines Aged Out No longer eligible based on patient's age to complete this topic Procedures Procedure Name Priority Date/Time Associated Diagnosis Comments XR CHEST 2 VIEWS Routine 08/30/2024 1:25 PM EDT Chronic obstructive pulmonary disease, unspecified COPD type (CMS/HCC V24, CMS/HCC V28) ECG 12-LEAD Routine 08/03/2024 1:06 PM EDT Atrial fibrillation, unspecified type (CMS/HCC V24, CMS/HCC V28) ANNUAL BMP BLOOD TEST Routine 02/26/2023 LIPID PANEL Routine 06/26/2021 from Last 3 Months or Most Recently Relevant to Health Maintenance Results * XR Chest 2 Views (08/30/2024 1:25 PM EDT) Anatomical Region Laterality Modality Body Radiographic Anjana ging 08/30/2024 2:48 PM EDT Narrative 08/30/2024 2:50 PM EDT Chest, 2 views. HISTORY: Dyspnea on exertion. No prior studies are available for comparison. There is ??elevation of the right hemidiaphragm and blunting of the right CP angle suggestive of possible small effusion. There is diffuse prominence of the interstitial markings and mild pulmonary vascular congestion. There is arm moderate cardiomegaly. There are post operative changes in the chest with sternotomy wires and aortic valve prosthesis. There is evidence of vertebroplasty in the lower thoracic and lumbar segment. CONCLUSIONS: Suggestion of small right pleural effusion. Possible mild congestive heart failure. Post operative changes. Cardiomegaly. -------- FINAL REPORT -------- Dictated By: Courtney Morrison Dictated Date: 08/30/2024 14:48 ET Assigned Physician: Courtney Morrison Reviewed and Electronically Signed By: Courtney Morrison Signed Date: 08/30/2024 14:50 ET Workstation ID: [id number] Transcribed By: Self Edit Transcribed Date: 08/30/2024 14:48 ET Procedure Note Courtney Morrison MD - 08/30/2024 Chest, 2 views. HISTORY: Dyspnea on exertion. No prior studies are available for comparison. There is elevation of the right hemidiaphragm and blunting of the rightCP angle suggestive of possible small effusion. There is diffuseprominence of the interstitial markings and mild pulmonary vascularcongestion. There is arm moderate cardiomegaly. There are post operativechanges in the chest with sternotomy wires and aortic valve prosthesis.There is evidence of vertebroplasty in the lower thoracic and lumbarsegment. CONCLUSIONS: Suggestion of small right pleural effusion. Possible mildcongestive heart failure. Post operative changes. Cardiomegaly. -------- FINAL REPORT -------- Dictated By: Courtney Morrison Dictated Date: 08/30/2024 14:48 ET Assigned Physician: Courtney Morrison Reviewed and Electronically Signed By: Courtney Morrison Signed Date: 08/30/2024 14:50 ET Workstation ID: [id number] Transcribed By: Self Edit Transcribed Date: 08/30/2024 14:48 ET us Rosa M Ellsworth MD IMG XR PROCEDURES Final Result * ECG 12 lead (08/03/2024 1:06 PM EDT) Ventricular Rate ECG 55 BPM GEMUSE Atrial Rate 55 BPM GEMUSE P-R Interval 156 ms GEMUSE QRS Duration 164 ms GEMUSE Q-T Interval 504 ms GEMUSE QTc 482 ms GEMUSE P Wave [place] 79 degrees GEMUSE R [place] -56 degrees GEMUSE T [place] -34 degrees GEMUSE ECG Interpretation Sinus bradycardia [...] GEMUSE * Annual BMP Blood Test (02/26/2023) Pathologist [facility] Annual BMP Blood Test abstracted Historical Provider HEALTH MAINTENANCE Final Result * Lipid panel (06/26/2021) [facility] LDL/HDL Ratio 2 0 - 4 Triglycerides 146 0 - 150 mg/dL Cholesterol 123 0 - 200 mg/dL HDL 53 >=40 mg/dL LDL Cholesterol 41 0 - 100 mg/dL Blood Venous blood specimen / Unknown Historical Provider LAB BLOOD ORDERABLES Alba l Result from Last 3 Months or Most Recently Relevant to Health Maintenance Insurance [place]ICA[place] - [place] MEDICARE Advance Directives Documents on File Type Date Recorded 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
--- NOTE | 2024-09-14 18:50 | PC.NURSE ---
Unable to straight cath for a urine secondary to trauma. Niharika care provided and purewick applied.
--- NOTE | 2024-09-14 18:52 | PC.NURSE ---
Mich son (Health care proxy) [phone]
[2024-09-14 19:11] LABS: Influenza A PCR NEGATIVE (Negative); Influenza B PCR NEGATIVE (Negative); Resp Syncy Virus RNA Qual PCR NEGATIVE (Negative); SARS COV2 PCR INHOUSE NEGATIVE (Negative)
[2024-09-14] MEDS: Bumetanide 1 MG/4 ML VIAL IVPUSH (19:13)
[2024-09-14 19:27] LABS: Appearance Urine Clear; Color Urine Yellow; Glucose Urine UA Negative (Negative); Leukocyte Esterase Urine Negative (Negative); Nitrite Urine Negative (Negative); PH >= 9.0 (5.0-9.0); Urine Blood Negative (Negative); Urine Ketones Trace mg/dL (Negative); Urine Protein Trace mg/dL (Neg-Trace)
[2024-09-14] MEDS: Metoprolol Tartrate 100 MG TABLET PO (21:27)
--- NOTE | 2024-09-14 22:45 | MHC.EDTECH ---
900mls of urine emptied from canister. Pt clean and dry at this time.
--- NOTE | 2024-09-14 23:42 | PC.NURSE ---
this rn assumed care of pt, pt assisted in getting dressed and ready for discharge
== END 2024-09-14 23:44 | disposition home or self-care (01) ==
PROVIDERS: Registered Nurse Emergency; Emergency Provider Emergency Medicine Emergency Medical Services; PCP Internal Medicine
DX: R05.9 Cough, unspecified (principal); R51.9 Headache, unspecified; I10 Essential (primary) hypertension
CPT/HCPCS: 0241U; 36415; 70450; 71045; 80053; 81003; 83605; 83735; 83880; 84484; 85025; 85610; 87040; 93005; 99285; J1939

== ENCOUNTER → 2024-09-14 17:59 | Outpatient (BNV) | payer MEDICARE, MEDICAID, SELFPAY | PROVIDERS: Emergency Provider Emergency Medicine Emergency Medical Services; PCP Internal Medicine; Visit Provider Internal Medicine | DX: I45.10 Unspecified right bundle-branch block (principal) | CPT/HCPCS: 93010 ==

== ENCOUNTER → 2024-09-14 17:59 | Outpatient (BNV) | payer MEDICARE, MEDICAID, SELFPAY | PROVIDERS: Emergency Provider Emergency Medicine Emergency Medical Services; PCP Internal Medicine; Visit Provider Nuclear Medicine | DX: R51.9 Headache, unspecified (principal); R53.1 Weakness; R06.00 Dyspnea, unspecified | CPT/HCPCS: 70450; 71045 ==

== ENCOUNTER 2024-09-15 21:50 | Inpatient (IN) | payer MEDICARE, MEDICAID, SELFPAY ==
[2024-09-15] VITALS (7 sets, daily range): BP systolic 173–201; BP diastolic 68–126; PULSE 66–91; RESP 13–20; TEMP 36.6–36.8; O2SAT 92–99; BMI 37.0
--- NOTE | ~2024-09-15 | MR_ITS ---
EXAMINATION: MR BRAIN WITHOUT IV CONTRAST HISTORY: stroke TECHNIQUE: Sagittal T1, and axial T1, FLAIR, T2, gradient echo, and diffusion weighted MR images of the brain were obtained. COMPARISON: Correlation is made with an unenhanced head CT and CT angiogram of the head dated 09/15/2024. FINDINGS: There is diffuse prominence of the ventricular system and cortical sulci, consistent with atrophy. Periventricular and subcortical white matter hyperintensities are noted on the FLAIR and T2-weighted images which are nonspecific, but often seen in the setting of small vessel ischemic disease. Again seen is encephalomalacia in the left cerebellum consistent with an old infarct. There are old lacunar infarcts of the right palma radiata and left basal ganglia. There is no mass effect or midline shift. No intra or extra-axial fluid collections are identified. There are no foci of restricted diffusion. There is an 8 mm distal right internal carotid artery aneurysm as seen on CTA. The visualized paranasal sinuses are clear. MR/MR head/brain wo con IMPRESSION: 1. No acute intracranial abnormality. No evidence of an acute infarct. 2. Old left cerebellar infarct. Old lacunar infarcts of the right palma radiata and left basal ganglia. 3. 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 Electronically signed by: Marco Antonio Cobb MD 09/16/2024 01:09 PM EDT
--- NOTE | ~2024-09-15 | CT_ITS ---
CLINICAL HISTORY: Stroke Protocol CT head without contrast Comparison: CT/SR - CT HEAD/BRAIN WO IV CON - 09/14/24 19:50 EDT Findings: No acute intracranial hemorrhage or abnormal extra-axial fluid collection. No findings of mass effect or midline shift. The ventricles and basilar cisterns are patent. Remote bilateral basal ganglia lacunar infarcts. Remote left inferior cerebellar hemisphere infarct. No findings of cytotoxic edema to suggest acute large territory infarct. No significant orbital abnormality. Paranasal sinuses and mastoid air cells clear. Bones intact. IMPRESSION: 1. No acute intracranial findings. Age-related global cerebral volume loss, chronic microvascular ischemic changes, and remote infarcts are unchanged from the previous exam. This document has been electronically signed by: Wing Vera MD on 09/15/2024 22:45:46
--- NOTE | ~2024-09-15 | CT_ITS ---
CLINICAL HISTORY: Stroke Protocol CT angiography head and neck with contrast. 3D Postprocessing. Comparison: None Findings: Exam is limited by suboptimal arterial contrast opacification secondary to mistiming of image acquisition relative to bolus administration. Venous contamination further degrades evaluation. Standard three-vessel aortic arch anatomy. Moderate narrowing, approximately 70%, of the left subclavian artery origin. Dense atherosclerotic calcification at the origin of the left vertebral artery produces at least 60% stenosis. The remainder of the left vertebral arteries cervical segments are widely patent. Normal appearance of the right vertebral artery. Mild narrowing of the bilateral V4 segments. Diffuse mild atherosclerotic narrowing of the basilar artery. Widely patent bilateral common carotid arteries. Heavy atherosclerotic changes of the right carotid bifurcation extending into the right ICA origin producing approximately 70% stenosis. No significant narrowing of the left carotid bifurcation or left extracranial ICA. Intracranial ICA segments are patent with diffuse heavy atherosclerotic changes in the carotid siphons and supraclinoid segments. The origin of the right M1 segment there is fusiform aneurysmal dilatation up to 5.7 mm. Luminal irregularity and areas of mild narrowing throughout the anterior and middle cerebral artery circulation with no hemodynamically significant narrowing or large vessel occlusion identified. Anterior and posterior communicating arteries are intact. Posterior cerebral arteries opacify normally. IMPRESSION: 1. Left subclavian artery 70% stenosis. 2. Right carotid bifurcation and right ICA origin 70% stenosis. 3. Diffuse intracranial atherosclerotic changes in the anterior and middle cerebral artery systems without large vessel occlusion or hemodynamically significant narrowing. 4. 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 This document has been electronically signed by: Wing Vera MD on 09/15/2024 23:05:35
--- NOTE | 2024-09-15 21:54 | ECG_ITS ---
Test Reason : STROKE Blood Pressure : */* mmHG Vent. Rate : 68 BPM Atrial Rate : 68 BPM P-R Int : 170 ms QRS Dur : 162 ms QT Int : 492 ms P-R-T Axes : 79 -86 -21 degrees QTcB Int : 523 ms Normal sinus rhythm Right bundle branch block Left anterior fascicular block Bifascicular block Minimal voltage criteria for LVH, may be normal variant ( R in aVL ) Abnormal ECG When compared with ECG of 14-Sep-2024 18:21, No significant change was found Referred By: Lisbeth Dickerson Electronically Signed By: LEEANNE LIU
--- NOTE | 2024-09-15 21:57 | ED_ITS ---
HPI - Neuro Symptoms/Deficit General Chief Complaint: Altered Mental Status Stated Complaint: unable to speak, fast ed 2 Time Seen by Provider: 09/15/24 21:53 History of Present Illness HPI Narrative: s/p mitral + aortic valve replacement (both prosthetic and complicated with RV rupture s/p repair). History of atrial fibrillation but because of previous bleeding not on Coumadin. Patient presented today last known well time was approximately 19:00 baseline able to speak baseline able to ambulate. Has a history of UTI. Has a history of bleeding from UTI and is not on Coumadin. Sudden went back into check on her at approximately 20:00 patient was very lethargic. Had difficulty with speech. Try to feed her some food patient's worse was then making sense. She was sent to the ED for further evaluation at about 22:00. Related Data Home Medications ?Medication ?Instructions ?Recorded ?Confirmed escitalopram oxalate 20 mg tablet 20 mg PO DAILY 10/30/21 04/20/24 (Lexapro) losartan 25 mg tablet (Cozaar) 25 mg PO DAILY 10/30/21 04/20/24 metoprolol tartrate 100 mg tablet 100 mg PO BID 10/30/21 04/20/24 (Lopressor) doxepin 25 mg capsule 1 cap PO BEDTIME 11/14/21 04/20/24 lorazepam 1 mg tablet 1 mg PO DAILY@1800 Anxiety 11/14/21 04/20/24 albuterol sulfate 2.5 mg/3 mL 1 vial inhalation Q4H PRN wheezing 03/17/22 04/20/24 (0.083 %) solution for nebulization biotin 2,500 mcg capsule 2,500 mcg PO DAILY 03/17/22 04/20/24 ergocalciferol (vitamin D2) 1,250 1,250 mcg PO WE 03/17/22 04/20/24 mcg (50,000 unit) capsule magnesium 250 mg tablet 250 mg PO DAILY 03/17/22 04/20/24 vitamin B complex 1 tab PO DAILY 03/17/22 04/20/24 torsemide 20 mg tablet 2 tab PO DAILY 07/28/22 04/20/24 albuterol sulfate 90 mcg/actuation 2 puff inhalation Q4H PRN wheezing 10/16/22 04/20/24 aerosol inhaler (Ventolin HFA) dexlansoprazole 30 mg 30 mg PO DAILY@1900 05/29/23 04/20/24 capsule,biphase delayed release gabapentin 300 mg capsule 300 mg PO BID 05/29/23 04/20/24 Lactobacillus acidophilus 1 cap PO BID 08/25/23 04/20/24 (Acidophilus capsule) dextran 70-hypromellose (PF) 0.1 1 drp ophthalmic (eye) Q4H PRN Dry 08/25/23 04/20/24 %-0.3 % eye drops in a dropperette Eye(S) (Artificial Tears (PF)) fluticasone furoate 100 1 ea inhalation DAILY PRN Wheezing 08/25/23 04/20/24 mcg-vilanterol 25 mcg/dose inhalation powder (Breo Ellipta) polyethylene glycol 3350 17 gram 17 g PO BID PRN Constipation 08/25/23 04/20/24 oral powder packet omega 1-iav-umb-fish oil 100 100 cap PO DAILY 09/08/23 04/20/24 mg-160 mg-1,000 mg capsule (Fish Oil) vit C 250 mg-vit E 90 mg-zinc 40 1 tab PO BID 09/08/23 04/20/24 mg-copper 1 gx-[id number]-bsrnwk capsule (PreserVision AREDS-2) ketorolac 0.5 % eye drops drp ophthalmic (eye) 01/14/24 04/20/24 Previous Rx's ?Medication ?Instructions ?Recorded solifenacin 10 mg tablet (Vesicare) 10 mg PO DAILY 90 days #90 tabs 11/18/23 simvastatin 40 mg tablet (Zocor) 40 mg PO BEDTIME #90 tabs 12/02/23 cetirizine 10 mg tablet (Zyrtec) 10 mg PO DAILY PRN allergy 01/14/24 symptoms #30 tabs triamcinolone acetonide 0.1 % 1 appl topical BID #15 grams 01/14/24 topical cream estradiol 0.01% (0.1 mg/gram) See Rx Instructions vaginal 3XW 90 01/20/24 vaginal cream days #42.5 grams methenamine hippurate 1 gram tablet 1 g PO DAILY #90 tabs 03/28/24 naproxen 500 mg tablet (Naprosyn) 500 mg PO BID #20 tabs 04/12/24 sulfamethoxazole 800 1 tab PO BID 5 days #10 tabs 05/20/24 mg-trimethoprim 160 mg tablet (Bactrim DS) ascorbic acid (vitamin C) 1,000 mg 1 g PO DAILY 90 days #90 tabs 05/31/24 tablet ferrous sulfate 325 mg (65 mg 325 mg PO BEDTIME 07/21/24 iron) tablet (Feosol) vibegron 75 mg tablet (Gemtesa) 75 mg PO DAILY 90 days #90 tabs 07/28/24 cefuroxime axetil 500 mg tablet 500 mg PO Q12H #10 tabs 09/08/24 Allergies Allergy/AdvReac Type Severity Reaction Status Date / Time adhesive [ADHESIVE] Allergy Unknown LOCAL Verified 09/15/24 22:08 REACTION melatonin Allergy PYSCHOSIS Verified 09/15/24 22:08 blue dye AdvReac Diarrhea Verified 09/15/24 22:08 Review of Systems 2 Review of Systems: Unable to obtain review of systems secondary patient's condition Yes Unobtainable due to mental status PMFSH Past Medical History Medical History Memory loss, short term Carpal tunnel syndrome on both sides Cataract CHF exacerbation History of stroke Abnormal colonoscopy (~04/03/22) Wheezing Anemia Urinary incontinence Right carpal tunnel syndrome Post cardiotomy syndrome PTSD (post-traumatic stress disorder) Osteoarthritis, hip, bilateral Interstitial cystitis Lipid disorder Insomnia Generalized anxiety disorder with panic attacks Major depression, recurrent History of ulcerative colitis Chronic GERD Diastolic congestive heart failure Paroxysmal atrial fibrillation Age related osteoporosis Asthma, moderate persistent Anticoagulant long-term use Iron deficiency anemia Establishing care with new doctor, encounter for Hypertension, essential Surgical History Hx of tonsillectomy Hx of colonoscopy Hx of rotator cuff surgery History of arthroplasty of both knees Hx of hysterectomy Status post mitral valve replacement Status post aortic valve replacement History of kyphoplasty History of artificial heart valve Family History Family History Daughter Mental health disorder Substance use disorder Father Emphysema lung Mother Heart disease Stroke Pacemaker Arthritis Family/Other Colon cancer Sister Crohn's disease Social History Social History Household Members: Children Household Members Other:: son Housing: Apartment Are you a primary lawn caretaker to a significant other at home: No Do you presently have visiting nurse or other home services: No Alcohol intake: never Patient Tobacco Use Status: Former Tobacco user Smoked in Last 30 Days: No e-Cigarette/Vaping Use: Never Used Use of substances other than those prescribed or required for medical reasons: No Substance Use Type: Marijuana Advance Directives Date on File: 03/18/22 service: No Current occupational status: retired Cognitive needs: No Hearing needs: No Vision needs: Yes Physical Exam 2 Vital Signs: Vital Signs: Last Vital Signs Temp 98.3 F 09/15/24 22:06 Pulse 70 09/15/24 22:56 Resp 14 09/15/24 22:56 BP 175/68 H 09/15/24 22:56 Pulse Ox 95 09/15/24 22:56 O2 Del Method Nasal Cannula 09/15/24 22:56 O2 Flow Rate 2 09/15/24 22:56 BMI result Body Mass Index 37.0 Appearance: Alert. No acute distress. Eyes: Pupils equal, round and reactive to light. ENT: Pharynx normal. Neck: Normal inspection. Neck supple. No lymph nodes noted. No crepitus CVS: Normal heart rate and rhythm. Pulses normal. Normal S1 and S2 Respiratory: No respiratory distress. Breath sounds normal. No Wheezing. No rales Abdomen: Soft and nontender. No rigidity. No distention. good BS x4 Skin: Skin warm and dry. Normal skin color. Normal skin turgor. Extremities: No lower extremity edema. Neurovascular intact to all extremities. No Lacerations. No Rash Neuro: Awake alert following simple commands. Able to hand grasp on both upper extremity without any issues. Weakness to bilateral lower extremity unable to lift up against gravity. No sensory deficit. Medications Administered Discontinued Medications Generic Name Dose Route Start Last Admin Trade Name Freq PRN Reason Stop Dose Admin Iohexol 75 ml 09/15/24 22:01 09/15/24 22:01 Iohexol 350 Mg/Ml 100 Ml Infus..Btl IV 09/15/24 22:02 75 ml ONCE ONE Administration Labetalol HCl 10 mg 09/15/24 22:29 09/15/24 22:31 Labetalol Hcl 100 Mg/20 Ml Vial IVPUSH 09/15/24 22:30 10 mg ONCE ONE Administration Labetalol HCl 10 mg 09/15/24 22:47 09/15/24 22:48 Labetalol Hcl 100 Mg/20 Ml Vial IVPUSH 09/15/24 22:48 10 mg ONCE ONE Administration Tenecteplase 21 mg 09/15/24 22:11 09/15/24 22:57 Tenecteplase 50 Mg/10 Ml Kit IVPUSH 09/15/24 22:12 21 mg ONCE ONE Administration Medical Decision Making Medical Decision Making [facility] Narrative: Glucose was over 100 there is no evidence for hypoglycemia. Patient last known well time was 19:00. Able to speak. At 07:30 was noted to be nonverbal. Was sent to the ED for further evaluation. Patient not on Coumadin at this time was on Coumadin previously for atrial fibrillation. I reviewed patient's CT scan of the head which was grossly negative to me. No acute bleeding no fracture no mass. Patient's sugar was checked to be 110 there is no evidence of hypoglycemia. Patient's NIH stroke scale was over 10. Patient's case was discussed with Neurology. Has significant dysarthria and aphasia. Given the risk and benefit elected to give the tnk. Patient blood pressure got extremely elevated. It was 220/quantity. Patient given 2 doses of labetalol. On recheck is now 175 over 70. Patient awake verbally still having difficulty with speech has dysarthria and aphasia. Family state this is not her. NIH stroke scale is high. Discussed with neurology. Feel comfortable with giving TNK. Patient was given TNK at approximately 23:00 after blood pressure has come down to an acceptable level. Patient's case was discussed with the religious education coordinator to be admitted. Differential Diagnosis Differential Diagnoses: The differential diagnosis associated with the presentation includes CVA, UTI, hypoglycemia Admission/Observation Consideration of admission/observation: Escalation of care including admission/observation considered Consult Healthcare Provider Management of the patient was discussed with: Community Support Worker (Informatics Nurse Specialist, radiologist, neurology) Lab Data [facility] Lab Attestation statement: I reviewed the patient's lab results. 09/15/24 22:30 09/15/24 22:30 Labs: Lab Results 09/15/24 09/15/24 Range/Units 22:16 22:30 WBC 11.0 H (4.8-10.8) X10*3/uL RBC 5.56 H (4.20-5.50) X10*6/uL Hgb 15.9 (12.0-16.0) g/dl Hct 46.2 (37.0-47.0) % MCV 83.1 (80.0-98.0) fL MCH 28.6 (27.0-33.0) pg MCHC 34.4 (31.0-35.0) g/dl RDW 12.8 (11.0-16.0) % Plt Count 212 (160-400) X10*3/uL MPV 9.6 (9.4-12.3) fL Immature Gran % (Auto) 0.2 (0.0-0.4) % Neut % (Auto) 82.3 H (45-73) % Lymph % (Auto) 10.4 L (20-40) % Armstrong % (Auto) 5.3 (2-11) % Eos % (Auto) 1.3 (0-4) % Baso % (Auto) 0.5 (0-2) % Lymph # (Auto) 1.1 L (1.2-4.9) X10*3/uL Armstrong # (Auto) 0.6 (0.1-1.2) X10*3/uL Eos # (Auto) 0.1 (0.0-0.4) X10*3/uL Baso # (Auto) 0.1 (0.0-0.2) X10*3/uL Abs Immat Gran (auto) 0.02 (0.00-0.03) X10*3/uL Absolute Neuts (auto) 9.0 H (2.0-8.3) x10*3/uL Absolute Nucleated RBC 0.000 (0.0-0.012) X10*3/uL Nucleated RBC % (auto) 0.0 (0.0-0.2) /100WBC POC Glucose 110 (60-115) mg/dL Independent Interpretation I performed an independent interpretation of an: EKG and CT Scan (CT head negative for bleed) Radiology Impression Discussion of test interpretation with radiology: I have reviewed the radiologist's reading. External Record Review External record reviewed: Inpatient record Chronic Conditions History of heart valve issues previous history of bleeding UTI as history of ulcerative colitis history of aortic valve replacement NIH Stroke Scale Internal: Initial- Upon Arrival Level of Consciousness: Alert Level of Consciousness Questions: Answers both questions correctly Level of Consciousness Commands: Performs both tasks correctly Best Gaze: Normal Visual: No visual loss Facial Palsy: Normal Motor Arm (Right): No drift Motor Arm (Left): No drift Motor Leg (Right): No effort against gravity Motor Leg (Left): No effort against gravity Limb Ataxia: Absent Sensory: Normal Best Language: Mute, global aphasia Dysarthia: Severe dysarthria Extinction and Inattention: No abnormality Score: 11 Critical Care Time Critical Care Time Critical Care Time: Yes Total Critical Care Time: 40 Attestation: I have personally provided 40 minutes of critical care time exclusive of time spent on separately billable procedures. ?Time includes review of lab data, radiology results, discussion with consultants, and monitoring for potential decompensation. ?Interventions were performed as documented above Discharge Plan Discharge Clinical Impression: Acute CVA (cerebrovascular accident) Patient Disposition: Admitted As Inpatient Print Language: Polish
[2024-09-15] MEDS: iohexoL 350 MG/ML 100 ML INFUS..BTL 75 ML IV (22:01)
[2024-09-15 22:23] LABS: Glucose, Whole Blood 110 mg/dL (60-115)
--- NOTE | 2024-09-15 22:29 | MHC.EDTECH ---
Called real radiology @2221 t check on stroke scans. Ct assigned to be read. CTA still going through.
[2024-09-15] MEDS: Labetalol HCL 100 MG/20 ML VIAL 10 MG IVPUSH ×2 (22:31→22:48)
[2024-09-15] MEDS: Tenecteplase 50 MG/10 ML KIT 21 MG IVPUSH (22:57)
[2024-09-15 22:58] LABS: Basophils Absolute Auto 0.1 X10*3/uL (0.0-0.2); Basophils Percent Auto 0.5 % (0-2); Eosinophils Absolute Auto 0.1 X10*3/uL (0.0-0.4); Eosinophils Percent Auto 1.3 % (0-4); Hematocrit 46.2 % (37.0-47.0); Hemoglobin 15.9 g/dl (12.0-16.0); INTERNATIONAL NORM RATIO 1.1 (0.9-1.1); Imm Gran Abs Auto 0.02 X10*3/uL (0.00-0.03); Imm Gran Pct Auto 0.2 % (0.0-0.4); Lymphocytes Absolute Auto 1.1 X10*3/uL (1.2-4.9); Lymphocytes Percent Auto 10.4 % (20-40); MANUAL DIFF FLAG NO; Mean Corpuscular HGB Conc 34.4 g/dl (31.0-35.0); Mean Corpuscular Hemoglobin 28.6 pg (27.0-33.0); Mean Corpuscular Volume 83.1 fL (80.0-98.0); Mean Platelet Volume 9.6 fL (9.4-12.3); Monocytes Absolute Auto 0.6 X10*3/uL (0.1-1.2); Monocytes Percent Auto 5.3 % (2-11); Neutrophils Percent Auto 82.3 % (45-73); Platelet Count 212 X10*3/uL (160-400); Prothrombin Time 12.6 SEC (10.9-12.4); Red Blood Count 5.56 X10*6/uL (4.20-5.50); Red Cell Distribution Width 12.8 % (11.0-16.0)
[2024-09-15 23:01] LABS: Partial Thromboplastin Time 24.5 SEC (26.0-36.8)
[2024-09-15 23:02] LABS: Stroke Lab Use COMPLETE
[2024-09-15 23:06] LABS: Anion Gap 15 (12-20); Blood Urea Nitrogen 14 mg/dL (9-16); Calcium 10.2 mg/dL (8.4-10.2); Carbon Dioxide 27 mmol/L (22-29); Chloride 90 mmol/L (96-108); Cholesterol 137 mg/dL (<200); Creatinine Clr Calc Pharmacy 59.2; Estimated Glomerular Filt Rate > 60; Glucose Random 112 mg/dL (60-115); HDL Cholesterol 53 mg/dL (>40); LDL Cholesterol Calculated 63 mg/dL (<100); Potassium 4.1 mmol/L (3.3-5.1); Sodium 128 mmol/L (135-145); Triglycerides 109 mg/dL (<150)
[2024-09-15 23:11] LABS: Troponin-I High Sensitivity 9.3 ng/L (<3.5-17.0)
--- OUTSIDE RECORDS SUMMARY | 2024-09-15 23:30 | XMS_ITS | Clinical Summary ---
Author Organization [address] [place] [address] [place] [phone] Phone Care Team Providers Care Diagrammer And Seamer Name Role Phone Negrita Bains MD Primary Care Provider [phone] Allergies Active Allergy Reactions Criticality Noted Date [...] 10/14/2022 Sacroiliitis ([facility] V24) 10/14/2022 Overview (04/12/2024): Last Assessment & [...] Severe obesity ([facility] V24, [facility] V28) 2022 Ulcerative colitis ([facility] V24, [facility] V28) (HFpEF) heart failure with p reserved ejection fraction ([facility] V24, [facility] V28) 06/17/2022 Overview (08/30/2024): Assessment & Plan (08/30/2024 11:21 PM EDT): Euvolemic on exam on current diuretic therapy. Continue current torsemide dosing. However, she has had no blood work done in over 6 months. - Order basic blood work to update medical records. - Send results to primary care physician for review. Wedge fracture of thoracic v ertebra ([facility] V24, [facility] V28) 01/24/2021 Atrial fibrillation ([facility] V24, [facility] V28) 0 11/19/2020 Overview (08/30/2024): previously anticoagulated with Coumadin but has had complications of severe hematuria in the past; is very uncertain based on our lack of access to [facility] records how much A-fib she truly has -Admitted at [facility] in August 2019 for for both GI [...] continue baby aspirin. - Request results from [facility]. - Will try to communicate with Dr. [...] mild prosthetic aortic stenosis. Echocardiogram done at [facility]. - Request results from [facility]. Hypertension 08/16/2020 Overview (04/12/2024): Last Assessment & [...] thoracic spine ([facility] V24, [facility] V28) 05/26/2018 Osteoarthritis of knee 04/12/2018 Gastroesophageal reflux disease without esophagi tis 04/12/2018 Resolved Problems Problem Noted Date Diagnosed Date Resolved Date Chronic diastolic heart fail ure ([facility] V24, CMS/HCC V28) 10/14/2022 08/30/2024 Congestive heart failure ([facility] V24, [facility] V28) 11/15/2020 08/30/2024 Overview (04/12/2024): Congestive heart [...] Description 09/01/2024 2:30 PM EDT Office Visit [facility] [address] [facility] [address] [place] [phone] Michael Sweet PA Sacroiliitis (CMS/HCC V24) (Primary Dx) 08/30/2024 1:11 PM EDT - 08/30/2024 11:59 PM EDT Hospital Encounter [facility] - [place] [address] [place] [address] Chronic obstructive pulmonary disease, unspecified COPD type (CMS/HCC V24, CMS/HCC V28) Discharge Disposition: Home or Self Care 08/30/2024 Telephone [facility] Cardiology [facility] [address] [facility] [address] [place] [phone] Madeline Machuca MD 08/26/2024 2:00 PM EDT Office Visit [facility] [address] [place] [phone] Rosa M Ellsworth MD Chronic obstructive pulmonary disease, unspecified COPD type (CMS/HCC V24, CMS/HCC V28) (Primary Dx); Chronic heart failure with preserved ejection fraction (CMS/HCC V24, CMS/HCC V28); Pleural effusion, right; Hypoxemia 08/25/2024 Telephone [facility] [address] [facility] [address] [place] [phone] Solange [place] 08/04/2024 Telephone [facility] Cardiology [facility] [address] [place] [phone] Negrita Bains MD Medical Records 08/03/2024 1:00 PM EDT Office Visit [facility] Cardiology [facility] [address] [facility] [address] [place] [phone] Madeline Machuca MD Atrial fibrillation, unspecified type (CMS/HCC V24, CMS/HCC V28) (Primary Dx); Chronic heart failure with preserved ejection fraction (CMS/HCC V24, [facility] V28); Hx of aortic valve replacement; H/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; Primary hypertension 07/19/2024 Telephone [facility] [address] [facility] [address] [place] [address] Ivone Coyle NP Med Refill [...] Congestive heart failure (CHF) (CMS/HCC V24, [facility] V28) Ulcerative colitis (CMS/HCC V24, [facility] V28) Asthma Back pain Anxiety Depression Hypertension [...] 3:45 PM EDT Office Visit Pulmonolgy - [place] [address] [place] [phone] Rosa M Ellsworth MD [address] [facility] [address] [place] [address] 12/28/2024 1:40 PM EDT Office Visit [facility] [address] [facility] [address] [place] [phone] Ivone Coyle NP [address] [place] [address] Scheduled Procedures Name Priority Associated Diagnoses Date/Ti [...] Signed Date: 08/30/2024 14:50 ET Workstation ID: [id number] Transcribed By: Self Edit Transcribed Date: 08/30/2024 [...] Signed Date: 08/30/2024 14:50 ET Workstation ID: [id number] Transcribed By: Self Edit Transcribed Date: 08/30/2024 14:48 ET us Rosa M Ellsworth MD IMG XR PROCEDURES Final Result * ECG 12 lead (08/03/2024 1:06 PM EDT) Ventricular Rate ECG 55 BPM GEMUSE Atrial Rate 55 BPM GEMUSE P-R Interval 156 ms GEMUSE QRS Duration 164 ms GEMUSE Q-T Interval 504 ms GEMUSE QTc 482 ms GEMUSE P Wave [place] 79 degrees GEMUSE R [place] -56 degrees GEMUSE T [place] -34 degrees GEMUSE ECG Interpretation Sinus bradycardia [...] * Annual BMP Blood Test (02/26/2023) Pathologist [facility] Annual BMP Blood Test abstracted Historical Provider HEALTH MAINTENANCE Final Result * Lipid panel (06/26/2021) [facility] LDL/HDL Ratio 2 0 - 4 Triglycerides [...] Documents on File Type Date Recorded Patient Ecommerce Project Manager Expl anation Health Care Decision (hx) 02/12/2023 DANIEL SANTAMARIA DIRECTIVE Care Teams Diagrammer And Seamer Relationship Specialty Start Date End Date Negrita Bains MD [address] [place] [phone] PCP - General Internal Medicine 08/01/24
--- OUTSIDE RECORDS SUMMARY | 2024-09-15 23:30 | XMS_ITS | Encounter Summary ---
Author [facility] [place] [address] Care Team Providers Care Glazing Machine Operator Name Role Phone Negrita Bains MD Primary Care Provider [phone] Encounter Details Date Type Department Care Team (Late st Contact Info) Description 08/30/2024 Telephone [facility] - [facility] [address] [facility] [address] [place] [address] Madeline Espinosa MD [address] [place] [address] Social History Tobacco Use Types Packs/Day Years [...] Hey did we ever get notes from [facility] about recent hospitalizations? Also, can we [...] 3:45 PM EDT Office Visit Pulmonolgy - [place] [address] [place] [phone] Rosa M Ellsworth MD [address] [place] [address] 12/28/2024 1:40 PM EDT Office Visit [facility] - [address] [place] [address] Ivone Coyle, ABIGAIL [address] [place] [address] Scheduled Orders Name Type Priority Associated Diagnoses Orde r Schedule Basic metabolic panel Lab Routine Paroxysmal atrial fibrillation ([facility]/HCC V24, CMS/HCC V28) 1 Occurrences starting 08/30/2024 until 08/30/2025 CBC and differential Lab Routine Paroxysmal atrial fibrillation ([facility] V24, CMS/HCC V28) 1 Occurrences starting 08/30/2024 until 08/30/2025 Prothrombin time with INR Lab Routine Paroxysmal atrial fibrillation ([facility] V24, [facility] V28) 1 Occurrences starting 08/30/2024 until 08/30/2025 Scheduled Procedures Name Priority Associated Diagnoses Date/Ti me LOOP RECORDER INSERTION Atrial fibrillation, unspecified type ([facility] V24, [facility] V28) documented as of this encounter Visit Diagnoses Diagnosis Paroxysmal atrial fibrillation ([facility] V24, [facility] V28)- Primary Atrial fibrillation documented in this encounter Care Teams Glazing Machine Operator Relationship Specialty Start Date End Date Negrita Bains MD [address] [place] [phone] PCP - General Internal Medicine 08/01/24 documented as of this encounter
--- NOTE | 2024-09-15 23:38 | PC.NURSE ---
This headline writer assumed care of this Pt at this time.
[2024-09-16] VITALS (39 sets, daily range): BP systolic 126–206; BP diastolic 51–98; PULSE 59–88; RESP 13–20; TEMP 36.1–36.9; O2SAT 92–98; BMI 36.6
--- NOTE | 2024-09-16 01:18 | PM.CCHP ---
History of Present Illness Date of Service: 09/16/24 Attending physician on admission: Tal Miner Chief Complaint: Stroke Ms Rodriguez is a 73-year-old female with history of CHF, anemia, CVA, asthma, paroxysmal AFib no anticoagulation, aortic and mitral valve replacement, GERD, ulcerative colitis, interstitial cystitis, recurrent UTIs, PTSD, anxiety? presented to the ER with lethargy and difficulty with speech first noted at 20:00. Last known well time approximately 19:00. She has no difficulty speaking or ambulating at baseline.? Of note, the pt was seen here in the emergency room yesterday complaining of generalized weakness, shortness of breath with cough, elevated blood pressure, urinary frequency, nausea, decreased appetite, headache x3 days.? She also reported an episode of blurred vision which resolved spontaneously. Workup was negative for infection and she was discharged to home. On arrival to the ED,? the patient was taken to CAT scan per stroke protocol.? Her blood pressure was ? 185/81, heart rate? 107, O2 sat 92% on room air, temp 98.3. Laboratory data significant for sodium 128, chloride 90. Imaging:? Head CT showed no acute intracranial findings.? No large vessel occlusion or significant? narrowing noted on head and neck CTA.? ED course: The pt received? a total of 20 mg labetalol.? She was given 21 mg TNK at 22:57. Review of Systems Review of Systems: Yes Unobtainable due to mental condition Neurologic: Reports Abnormal speech present (dysarthria) PMFSH Past Medical History Medical History Memory loss, short term Carpal tunnel syndrome on both sides Cataract CHF exacerbation History of stroke Abnormal colonoscopy (~04/03/22) Wheezing Anemia Urinary incontinence Right carpal tunnel syndrome Post cardiotomy syndrome PTSD (post-traumatic stress disorder) Osteoarthritis, hip, bilateral Interstitial cystitis Lipid disorder Insomnia Generalized anxiety disorder with panic attacks Major depression, recurrent History of ulcerative colitis Chronic GERD Diastolic congestive heart failure Paroxysmal atrial fibrillation Age related osteoporosis Asthma, moderate persistent Anticoagulant long-term use Iron deficiency anemia Establishing care with new doctor, encounter for Hypertension, essential Family History Family History Daughter Mental health disorder Substance use disorder Father Emphysema lung Mother Heart disease Stroke Pacemaker Arthritis Family/Other Colon cancer Sister Crohn's disease Surgical History Surgical History Hx of tonsillectomy Hx of colonoscopy Hx of rotator cuff surgery History of arthroplasty of both knees Hx of hysterectomy Status post mitral valve replacement Status post aortic valve replacement History of kyphoplasty History of artificial heart valve Social History Social History Household Members: Family Household Members Other:: son Housing: House Are you a primary medicare contact specialist to a significant other at home: No Do you presently have visiting nurse or other home services: No Alcohol intake: never Patient Tobacco Use Status: Former Tobacco user Smoked in Last 30 Days: No e-Cigarette/Vaping Use: Never Used Use of substances other than those prescribed or required for medical reasons: Unable to respond Substance Use Type: Marijuana Currently Displaying Signs/Symptoms of Drug Intoxication Withdrawal: No Advance Directives: Yes Advance Directives on File: Yes Advance Directives Date on File: 03/18/22 Do you have a plan to hurt others: No Plan Recently lost weight without trying: No Nutrition Risks: On aspiration precautions Patient : No : No Poor oral hygiene: No service: No Current occupational status: retired Cognitive needs: No Hearing needs: No Vision needs: Yes Meds Allergies Allergy/AdvReac Type Severity Reaction Status Date / Time adhesive [ADHESIVE] Allergy Unknown LOCAL Verified 09/15/24 22:08 REACTION melatonin Allergy PYSCHOSIS Verified 09/15/24 22:08 blue dye AdvReac Diarrhea Verified 09/15/24 22:08 Active Medications: Current Medications Acetaminophen (Acetaminophen 325 Mg Tablet) 650 mg PO Q6H PRN PRN Reason: Pain, Mild 1-3,fever,headache Labetalol HCl (Labetalol Hcl 100 Mg/20 Ml Vial) 10 mg IVPUSH Q10M PRN PRN Reason: sbp >180 Magnesium Hydroxide (Milk Of Magnesia 30 Ml Oral.Susp) 30 ml PO DAILY PRN PRN Reason: Constipation Sodium Chloride (0.9 % Sodium Chloride Flush 3 Ml Syringe) 3 [facility] Medications ?Medication ?Instructions ?Recorded ?Confirmed ?Last Taken ?Type escitalopram oxalate 20 mg tablet 20 mg PO DAILY 10/30/21 04/20/24 08/25/23 History (Lexapro) losartan 25 mg tablet (Cozaar) 25 mg PO DAILY 10/30/21 04/20/24 08/25/23 History metoprolol tartrate 100 mg tablet 100 mg PO BID 10/30/21 04/20/24 08/25/23 History (Lopressor) lorazepam 1 mg tablet 1 mg PO DAILY@1800 Anxiety 11/14/21 04/20/24 08/24/23 History albuterol sulfate 2.5 mg/3 mL 1 vial inhalation Q4H PRN wheezing 03/17/22 04/20/24 02/21/23 08:00 History (0.083 %) solution for nebulization ergocalciferol (vitamin D2) 1,250 1,250 mcg PO WE 03/17/22 04/20/24 08/19/23 History mcg (50,000 unit) capsule magnesium 250 mg tablet 250 mg PO DAILY 03/17/22 04/20/24 08/25/23 History vitamin B complex 1 tab PO DAILY 03/17/22 04/20/24 08/25/23 History albuterol sulfate 90 mcg/actuation 2 puff inhalation Q4H PRN wheezing 10/16/22 04/20/24 02/21/23 08:00 History aerosol inhaler (Ventolin HFA) dexlansoprazole 30 mg 30 mg PO DAILY@1900 05/29/23 04/20/24 08/24/23 History capsule,biphase delayed release gabapentin 300 mg capsule 300 mg PO BID 05/29/23 04/20/24 08/25/23 History dextran 70-hypromellose (PF) 0.1 1 drp ophthalmic (eye) Q4H PRN Dry 08/25/23 04/20/24 Unknown History %-0.3 % eye drops in a dropperette Eye(S) (Artificial Tears (PF)) omega 1-scs-eyv-fish oil 100 100 cap PO DAILY 09/08/23 04/20/24 Unknown History mg-160 mg-1,000 mg capsule (Fish Oil) vit C 250 mg-vit E 90 mg-zinc 40 1 tab PO BID 09/08/23 04/20/24 Unknown History mg-copper 1 [id number]-[id number] capsule (PreserVision AREDS-2) aripiprazole 2 mg tablet 2 mg PO DAILY 09/16/24 Unknown History ciclopirox 0.77 % topical cream 1 appl topical DAILY 09/16/24 Unknown History doxepin 10 mg capsule 10 mg PO BEDTIME insomnia 09/16/24 Unknown History fluticasone propionate 50 1 mcg intranasal DAILY 09/16/24 Unknown History mcg/actuation nasal spray,suspension potassium chloride 10 mEq 10 meq PO DAILY 09/16/24 Unknown History tablet,extended release suvorexant 5 mg tablet (Belsomra) 2.5 mg PO BEDTIME sleep 09/16/24 Unknown History umeclidinium 62.5 mcg-vilanterol 1 ea inhalation DAILY 09/16/24 Unknown History 25 mcg/actuation powdr for inhalation (Anoro Ellipta) Physical Exam Vital Signs: Vital Signs: Last Vital Signs Temp 97.8 F 09/15/24 23:43 Pulse 64 09/16/24 00:38 Resp 18 09/16/24 00:38 BP 179/79 H 09/16/24 00:38 Pulse Ox 98 09/16/24 00:05 O2 Del Method Nasal Cannula 09/16/24 00:38 O2 Flow Rate 2 09/16/24 00:05 BMI result Body Mass Index 37.0 Const: General: anxious and tired appearing; No acute distress Nutritional Appearance: obese HEENT: Head: Yes normocephalic and Yes atraumatic General nose exam: Normal external nose present (Nares patent, septum midline, sinuses nontender bilaterally.) Mouth: Normal oral and palatal mucosa present (No thrush, tongue in midline, mucosa moist.) Throat: Yes other (No erythema, no exudate.) Eyes: General: appearance normal, both eyes and all related structures Pupils: Equal, round and reactive pupils present Neck: Neck: Yes supple (no thyromegaly, trachea midline.) Carotids: normal carotid upstroke Resp: Auscultation: clear to auscultation bilaterally (normal work of breathing, no accessory muscle use) Cardio: Jugular venous distension: no JVD Rate: regular rate Rhythm: regular rhythm Heart sounds: no gallops, no murmurs and no rubs Peripheral pulses: Peripheral pulses 2+ throughout GI: Palpation (GI): Soft to palpation (nondistended.) and nontender Skin: General skin exam: no rashes or lesions noted and turgor normal Wounds: no wounds Neuro: Other: Awake, alert, following simple commands. Unable to shrug right shoulder. Unable to lift right leg. Weak hand supervisor channel process bilaterally. General: Normal light touch and pain sensation and Unable to assess gait Cranial nerves: Yes Equal, round and reactive pupils present Speech: Abnormal speech present (dysarthria) Details: expressive aphasia Gait exam (Neuro): Unable to assess gait Motor exam (neuro): strength not 5/5 throughout and Abnormal motor strength present Pupils: Normal pupillary reactivity/response: bilateral Results Labs 09/16/24 04:53 09/16/24 07:56 Labs: Laboratory Results - last 24 hr 09/15/24 09/15/24 22:16 22:30 MCV 83.1 MCH 28.6 MCHC 34.4 RDW 12.8 Plt Count 212 MPV 9.6 Immature Gran % (Auto) 0.2 Neut % (Auto) 82.3 H Lymph % (Auto) 10.4 L Tift % (Auto) 5.3 Eos % (Auto) 1.3 Baso % (Auto) 0.5 Lymph # (Auto) 1.1 L Tift # (Auto) 0.6 Eos # (Auto) 0.1 Baso # (Auto) 0.1 Abs Immat Gran (auto) 0.02 Absolute Neuts (auto) 9.0 H Absolute Nucleated RBC 0.000 Nucleated RBC % (auto) 0.0 PT 12.6 H INR 1.1 APTT 24.5 L D Anion Gap 15 Estim Creat Clear Calc 59.2 Estimated GFR > 60 POC Glucose 110 Random Glucose 112 Calcium 10.2 D Triglycerides 109 Cholesterol 137 LDL Cholesterol, Calc 63 HDL Cholesterol 53 Assessment and Plan (1) Acute CVA (cerebrovascular accident): Status: Acute (2) Hyponatremia: Status: Acute Plan 73-year-old female with history of CHF, anemia, CVA, asthma, paroxysmal AFib no anticoagulation, aortic and mitral valve replacement, GERD, ulcerative colitis, interstitial cystitis, recurrent UTIs, PTSD, anxiety admitted to ICU for observation post TNK administration. Neuro:? CT head no acute infarct/bleed. No large vessel occlusion or significant? narrowing noted on head and neck CTA. Speech is incoherent. She has significant weakness of both right extremities.? She is s/p TNK. MRI ordered. Appreciate neurology services.? Cardiac: Underlying HTN, CHF,? AFib not on anticoagulation d/t? history of bleed, aortic + mitral valve replacements. Will closely monitor blood pressure, heart rate. Echo in AM.? Pulmonary: No acute issues. Renal: Hyponatremia. Monitor electrolytes, renal indices and urine output.? Endo:? No acute issues.? GI: No acute issues. Underlying ulcerative colitis, GERD. Heme/onc: No acute issues. Misc:? no acute issues Prophylaxis: Pneumatic hoses. No DVT anticoagulation for 24hr post TNK Diet:? NPO per protocol. Speech language consult placed.? Patient's care was discussed in detail with Dr. Miner.? He is aware of all the above as well as the plan of care for this patient. Total time managing care of this patient today: 60 minutes.
--- NOTE | 2024-09-16 01:19 | PC.NURSE ---
Late entry: 2340: pt moaning while BP going off. Not speaking, able to squeeze hands on verbal command. Per son Pt is hard of hearing, needing multiple repeat. 0000: Pt speaking in word salad when asked simple questions. 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 Pt not able to bring legs off of stretcher. Son reports Pt ambulates with cane at home. 0027: Pt stated my arm is so sore , unable to elaborate to which arm, blood pressure cuff changed to right arm. Verbal Reports given to Singh Pt brought over to room 260.
[2024-09-16] MEDS: Labetalol HCL 100 MG/20 ML VIAL 10 MG IVPUSH ×2 (01:21→16:47)
[2024-09-16 04:57] LABS: VBG Base Excess 5.2 mmol/L; VBG HCO3 30 mmol/L (22-26); VBG pCO2 46 mmHg; VBG pH 7.42 (7.32-7.43); VBG pO2 61 mmHg
[2024-09-16 05:00] LABS: Venous Blood Gas Refer to POC result
--- NOTE | 2024-09-16 05:09 | PC.NURSE ---
Addendum entered by Brandon Sanches RN 09/16/24 06:24: SERIAL Q30 VITALS AND NEURO CHECKS X6 HOURS COMPLETE AT 7AM..PER PROVIDER TO TRANSITION TO Q1 HOUR VITALS AND NEURO CHECKS AT 7AM PER POST THROMBOLYTIC CARE PROTOCOL Original Note: ADMIT TO 260-101:10...AWAKE..OPENS EYES TO VERBALCOMMANDPUPILS EQUAL/REACTIVE..LEFT HAND GRASP WEAKER THAN RIGHT..WIGGLES TOES AND MOVES FEET TO COMMAND BUT UNABLE TO LIFT LEGS UP OFF BED...SPEECH INITIALLY INCOMPREHENSIBLE...OVER THE NIGHT 1-2 WORDS AT A TIME SPOKEN CLEARLY FOLLOWED BY INCOMPRENSIBLE WORDS...THIS AM STATED YOUR HANDS ARE FREEZING DURING NEURO ASSESSMENT FOLLOWED BY INCOMPRENSIBLE WORDS...NSR RBBB HR 64-70...BP ELEVATED UPON ADMIT TO ICU..183/83 TO 206/83...SBP GOAL <180...PRN LABETOLOL 10MH IVP X1 GIVEN WITH IMPROVED BP..PROVIDER PRESENT AND AWARE...NO SIGNS OF BLEEDING...#20 ANGIO/PRN ADAPTOR TO RIGHT AC AND LEFT WRIST PATENT WITH GOOD BLOOD RETURN...PURWIK PLACED POST TRANSFER TO ICU..HNV FROM 01:10 TO 05:15...REMAINS NPO AND NO IV FLUIDS INFUSING.
[2024-09-16 05:14] LABS: MANUAL DIFF FLAG NO
[2024-09-16 05:17] LABS: Basophils Absolute Auto 0.1 X10*3/uL (0.0-0.2); Basophils Percent Auto 0.5 % (0-2); Eosinophils Absolute Auto 0.1 X10*3/uL (0.0-0.4); Eosinophils Percent Auto 0.3 % (0-4); Hematocrit 40.2 % (37.0-47.0); Hemoglobin 13.4 g/dl (12.0-16.0); Imm Gran Abs Auto 0.07 X10*3/uL (0.00-0.03); Imm Gran Pct Auto 0.5 % (0.0-0.4); Lymphocytes Absolute Auto 1.2 X10*3/uL (1.2-4.9); Lymphocytes Percent Auto 7.7 % (20-40); Mean Corpuscular HGB Conc 33.3 g/dl (31.0-35.0); Mean Corpuscular Volume 84.1 fL (80.0-98.0); Monocytes Absolute Auto 0.7 X10*3/uL (0.1-1.2); Monocytes Percent Auto 4.3 % (2-11); Neutrophils Absolute Auto 13.2 x10*3/uL (2.0-8.3); Neutrophils Percent Auto 86.7 % (45-73); Platelet Count 218 X10*3/uL (160-400); Red Blood Count 4.78 X10*6/uL (4.20-5.50); Red Cell Distribution Width 12.8 % (11.0-16.0); White Blood Count 15.2 X10*3/uL (4.8-10.8)
--- NOTE | 2024-09-16 07:00 | CA_ITS ---
Transthoracic Echocardiogram Patient (Last, First, Middle): Yaneth Rodriguez M Gender: Female Date of : 1950 Age: 73 Procedure Date: 09/16/2024 Procedure Type: Transthoracic Echocardiogram [place] [facility] [place]: 152.4 cm Weight: 84.82 kg BSA: 1.81 m2 Heart Rate: 64 bpm BP: 151 / 58 mmHg Agricultural Technician: [facility] Referring MD: Jaclyn Prasad NP Symptoms: stroke Study Quality: Fair ECG Rhythm: Sinus Conclusions: - The left ventricular systolic function is hyperdynamic. The visually estimated ejection fraction is >70%. - A bioprosthetic aortic valve is present. The prosthetic aortic valve appears to be functioning normally. - A bioprosthetic mitral valve is present. The prosthetic mitral valve appears to be functioning normally. Findings Left Ventricle Normal left ventricular cavity size. There is moderately increased left ventricular wall thickness. The left ventricular systolic function is hyperdynamic. The visually estimated ejection fraction is >70%. There is no evidence of regional wall motion abnormalities. Diastolic function is indeterminate on the basis of available data. Right Ventricle Normal right ventricular cavity size and systolic function. Atria The left atrium is mildly dilated. The right atrium is normal in size. Aortic Valve A bioprosthetic aortic valve is present. The prosthetic aortic valve appears to be functioning normally. The mean gradient is 12 mmHg. There is no aortic valve regurgitation. Mitral Valve A bioprosthetic mitral valve is present. The prosthetic mitral valve appears to be functioning normally. There is no mitral valve regurgitation. Mean gradient across the mitral valve 4 mm Hg at 62/Min. Pulmonic Valve The pulmonic valve is likely normal. Tricuspid Valve Normal tricuspid valve structure. There is no tricuspid valve regurgitation. Tricuspid regurgitation envelope is inadequate for calculation of right ventricular systolic pressure. Great Vessels The asc aorta is normal in size. Venous The inferior vena cava is normal in size and collapses greater than 50% with inspiration. Pericardium/Pleural There is no evidence of pericardial effusion. Prior Study Comparison No prior study available for comparison. Measurements 2D Linear Measurements IVSd: 1.42 0.6-0.9/0.6-1.0 cm LVIDd: 3.73 3.9-5.3/4.2-5.9 cm LVIDd Index: 2.06 2.4-3.2/2.2-3.1 cm/m2 LVIDs: 1.93 2.0-3.6 cm LVPWd: 1.31 0.7-1.1 cm LA Diam: 4.50 2.7-3.8/3.0-4.0 cm LAIDs Index: 2.49 1.5-2.3 cm/m2 LV Mass: 226.40 67-162/88-224 g LV Mass Index: 125.08 43-95/49-115 g/m2 LVOT Diam: 2.20 3.0+(-)1.3 cm 2D Systolic Function EF 4C: 67.60 >55% EF 2C: 50.30 >55% EF BiP: 60.00 >55% Mitral Valve MV VTI: 0.59 MV Pk Baldeamr: 1.80 MV Mn Baldemar: 0.91 MV Pk Grad: 13.00 MV Mn Grad: 4.00 MV Pk E: 1.53 MV PK A: 0.97 MV Decel Time: 420.00 E/A: 1.60 E'Lateral: 4.57 E'Medial: 2.39 E/E' Med: 64.00 E/E' Lat: 33.50 PHT: 123.00 MVA PHT: 1.79 MVA Continuity: 1.60 Decel Grainger: 3.65 Aortic Valve AoV Pk Baldemar: 2.15 AoV Mn Baldemar: 1.63 AoV VTI: 0.50 AoV Pk Grad: 18.00 Aov Mn Grad: 12.00 WES Cont.VTI: 1.88 LVOT LVOT Pk Baldemar: 1.09 LVOT Mn Baldemar: 0.67 LVOT VTI: 0.25 LVOT Pk Grad: 5.00 LVOT Mn Grad: 2.00 LVOT Diam: 2.20 LVOT Area: 3.80 Diastolic Function MV Pk E: 1.53 MV Pk A: 0.97 E/A: 1.60 E'Medial: 2.39 E/E' Med: 64.00 E' Laterial: 4.57 E/E' Lat: 33.50 Right Ventricle TAPSE (mm): 18.80 Tricuspid Valve RA Press: 3.00 Great Vessels Aorta Sinus of Valsalva: 3.00 2.0-3.5 cm Ao Asc: 3.80 2.1-3.4 cm Updated in Other Vendor System with Status of Final Kendell Stewart MD electronically signed on 09/16/2024 3:41:07 PM with status of Final
[2024-09-16] MEDS: 0.9 % Sodium Chloride Flush 3 ML SYRINGE IVFLUSH ×2 (07:09→17:01)
[2024-09-16 08:30] LABS: Albumin Level 3.9 g/dL (3.5-5.0); Anion Gap 13 (12-20); Blood Urea Nitrogen 14 mg/dL (9-16); Calcium 9.2 mg/dL (8.4-10.2); Carbon Dioxide 26 mmol/L (22-29); Chloride 95 mmol/L (96-108); Creatinine Clr Calc Pharmacy 62.7; Estimated Glomerular Filt Rate > 60; Glucose Random 120 mg/dL (60-115); Magnesium 2.3 mg/dL (1.6-2.6); Phosphorus 4.2 mg/dL (2.7-4.5); Potassium 4.4 mmol/L (3.3-5.1); Sodium 130 mmol/L (135-145)
--- NOTE | 2024-09-16 09:46 | P.CNNE_ITS ---
History of Present Illness Data of Consult Service Date: 09/16/24 Primary Care Provider: Negrita Bains MD [facility] Reason for consult: Aphasia 73 years old woman with past medical history of atrial fibrillation and cardiac valve disease not on anticoagulation came to hospital with new onset of not able to speak and weakness. She was evaluated in emergency room and a diagnosis of aphasia and bilateral weakness was made. With tentative diagnosis of stroke she was treated with TNK. Her blood pressure was high and it was treated according to protocol. There was no sign of any seizure. She was admitted in ICU when I saw her this morning there. She was feeling much better not in any distress. Review of Systems 2 Review of Systems: No recent cold or flu-like illness PMFSH Past Medical History Medical History Memory loss, short term Carpal tunnel syndrome on both sides Cataract CHF exacerbation History of stroke Abnormal colonoscopy (~04/03/22) Wheezing Anemia Urinary incontinence Right carpal tunnel syndrome Post cardiotomy syndrome PTSD (post-traumatic stress disorder) Osteoarthritis, hip, bilateral Interstitial cystitis Lipid disorder Insomnia Generalized anxiety disorder with panic attacks Major depression, recurrent History of ulcerative colitis Chronic GERD Diastolic congestive heart failure Paroxysmal atrial fibrillation Age related osteoporosis Asthma, moderate persistent Anticoagulant long-term use Iron deficiency anemia Establishing care with new doctor, encounter for Hypertension, essential Family History Family History Daughter Mental health disorder Substance use disorder Father Emphysema lung Mother Heart disease Stroke Pacemaker Arthritis Family/Other Colon cancer Sister Crohn's disease Surgical History Surgical History Hx of tonsillectomy Hx of colonoscopy Hx of rotator cuff surgery History of arthroplasty of both knees Hx of hysterectomy Status post mitral valve replacement Status post aortic valve replacement History of kyphoplasty History of artificial heart valve Social History Social History Household Members: Family Household Members Other:: son Housing: House Are you a primary child care giver to a significant other at home: No Do you presently have visiting nurse or other home services: No Alcohol intake: never Patient Tobacco Use Status: Former Tobacco user Smoked in Last 30 Days: No e-Cigarette/Vaping Use: Never Used Use of substances other than those prescribed or required for medical reasons: Unable to respond Substance Use Type: Marijuana Currently Displaying Signs/Symptoms of Drug Intoxication Withdrawal: No Advance Directives: Yes Advance Directives on File: Yes Advance Directives Date on File: 03/18/22 Do you have a plan to hurt others: No Plan Recently lost weight without trying: No Nutrition Risks: On aspiration precautions Patient : No : No Poor oral hygiene: No service: No Current occupational status: retired Cognitive needs: No Hearing needs: No Vision needs: Yes Meds Allergies Allergy/AdvReac Type Severity Reaction Status Date / Time adhesive [ADHESIVE] Allergy Unknown LOCAL Verified 09/15/24 22:08 REACTION melatonin Allergy PYSCHOSIS Verified 09/15/24 22:08 blue dye AdvReac Diarrhea Verified 09/15/24 22:08 Active Medications: Current Medications Acetaminophen (Acetaminophen 325 Mg Tablet) 650 mg PO Q6H PRN PRN Reason: Pain, Mild 1-3,fever,headache Labetalol HCl (Labetalol Hcl 100 Mg/20 Ml Vial) 10 mg IVPUSH Q10M PRN PRN Reason: sbp >180 Last Admin: 09/16/24 01:21 Dose: 10 mg Magnesium Hydroxide (Milk Of Magnesia 30 Ml Oral.Susp) 30 ml PO DAILY PRN PRN Reason: Constipation Sodium Chloride (0.9 % Sodium Chloride Flush 3 Ml Syringe) 3 ml IVFLUSH QSHIFT JENNIFER Last Admin: 09/16/24 07:09 Dose: 3 ml Home Medications ?Medication ?Instructions ?Recorded ?Confirmed ?Last Taken ?Type escitalopram oxalate 20 mg tablet 20 mg PO DAILY 10/30/21 04/20/24 08/25/23 History (Lexapro) losartan 25 mg tablet (Cozaar) 25 mg PO DAILY 10/30/21 04/20/24 08/25/23 History metoprolol tartrate 100 mg tablet 100 mg PO BID 10/30/21 04/20/24 08/25/23 History (Lopressor) lorazepam 1 mg tablet 1 mg PO DAILY@1800 Anxiety 11/14/21 04/20/24 08/24/23 History albuterol sulfate 2.5 mg/3 mL 1 vial inhalation Q4H PRN wheezing 03/17/22 04/20/24 02/21/23 08:00 History (0.083 %) solution for nebulization ergocalciferol (vitamin D2) 1,250 1,250 mcg PO WE 03/17/22 04/20/24 08/19/23 History mcg (50,000 unit) capsule magnesium 250 mg tablet 250 mg PO DAILY 03/17/22 04/20/24 08/25/23 History vitamin B complex 1 tab PO DAILY 03/17/22 04/20/24 08/25/23 History albuterol sulfate 90 mcg/actuation 2 puff inhalation Q4H PRN wheezing 10/16/22 04/20/24 02/21/23 08:00 History aerosol inhaler (Ventolin HFA) dexlansoprazole 30 mg 30 mg PO DAILY@1900 05/29/23 04/20/24 08/24/23 History capsule,biphase delayed release gabapentin 300 mg capsule 300 mg PO BID 05/29/23 04/20/24 08/25/23 History dextran 70-hypromellose (PF) 0.1 1 drp ophthalmic (eye) Q4H PRN Dry 08/25/23 04/20/24 Unknown History %-0.3 % eye drops in a dropperette Eye(S) (Artificial Tears (PF)) omega 6-slz-njw-fish oil 100 100 cap PO DAILY 09/08/23 04/20/24 Unknown History mg-160 mg-1,000 mg capsule (Fish Oil) vit C 250 mg-vit E 90 mg-zinc 40 1 tab PO BID 09/08/23 04/20/24 Unknown History mg-copper 1 tk-kcekzo-djjiua capsule (PreserVision AREDS-2) aripiprazole 2 mg tablet 2 mg PO DAILY 09/16/24 Unknown History ciclopirox 0.77 % topical cream 1 appl topical DAILY 09/16/24 Unknown History doxepin 10 mg capsule 10 mg PO BEDTIME insomnia 09/16/24 Unknown History fluticasone propionate 50 1 mcg intranasal DAILY 09/16/24 Unknown History mcg/actuation nasal spray,suspension potassium chloride 10 mEq 10 meq PO DAILY 09/16/24 Unknown History tablet,extended release suvorexant 5 mg tablet (Belsomra) 2.5 mg PO BEDTIME sleep 09/16/24 Unknown History umeclidinium 62.5 mcg-vilanterol 1 ea inhalation DAILY 09/16/24 Unknown History 25 mcg/actuation powdr for inhalation (Anoro Ellipta) Physical Exam 2 Vital Signs: Vital Signs: Last Vital Signs Temp 97.1 F 09/16/24 08:00 Pulse 63 09/16/24 09:00 Resp 15 09/16/24 09:00 BP 134/62 09/16/24 09:00 Pulse Ox 96 09/16/24 09:00 O2 Del Method Nasal Cannula 09/16/24 09:00 O2 Flow Rate 2 09/16/24 09:00 BMI result Body Mass Index 36.6 Neuro: Other: She is alert and awake with normal spontaneity of speech fluency comprehension and affect. Face is symmetrical. Visual russo are full. Extraocular muscles are intact. There is no obvious focal arm or leg weakness. Plantars are flexor. Speech is normal. Results Labs 09/16/24 04:53 09/16/24 07:56 Labs: Short CBC 09/15/24 09/16/24 Range/Units 22:30 04:53 WBC 11.0 H 15.2 H (4.8-10.8) X10*3/uL Hgb 15.9 13.4 (12.0-16.0) g/dl Hct 46.2 40.2 (37.0-47.0) % Plt Count 212 218 (160-400) X10*3/uL BMP 09/15/24 09/16/24 22:30 07:56 Sodium 128 L 130 L Potassium 4.1 4.4 Chloride 90 L 95 L Carbon Dioxide 27 26 BUN 14 14 Creatinine 0.80 0.75 Calcium 10.2 D 9.2 D Liver Function 09/16/24 Range/Units 07:56 Albumin 3.9 (3.5-5.0) g/dL CTA of brain revealed moderate to severe cortical bilateral frontoparietal atrophy, old left cerebellar embolic looking infarct and moderate generalize atrophy with microvascular disease. CTA of brain revealed moderate right internal carotid artery stenosis, intracranial atherosclerotic disease, and right middle cerebral artery 5.7 mm aneurysm. Assessment and Plan (1) Acute CVA (cerebrovascular accident): Status: Acute 73 years old woman with significant underlying cardiac pathology including history of atrial fibrillation not anticoagulated came to hospital with new complaint of sudden onset of not able to speak and weakness and with tentative diagnosis of ischemic stroke treated with TNK. Now her language was normal and there was no obvious focal weakness on her examination. Imaging revealed significant cerebral cortical frontoparietal atrophy, moderate right internal carotid artery extracranial stenosis, intracranial atherosclerotic disease, and 5.7 mm right middle cerebral artery aneurysm. My recommendation is to obtain a noncontrast MRI of brain 1st to define exact pathology. If ischemic stroke is confirmed, long-term anticoagulation is recommended. Carotid disease should be treated with medical means including blood pressure control, blood thinner, and statin. Cerebral aneurysm should be followed by another scan in 6-12 months. Procedures Date of Service Date of Service: 09/16/24
--- NOTE | 2024-09-16 10:10 | MHC.CM.PN ---
IMM DELIVERED TO SON /HCP [facility]. SON REQUESTS COPY BE LEFT AT BEDSIDE. PT LIVES ALONE BUT HAS RD PROJECT MANAGER ASSIST FROM SON VIA [employer] 38/HRS PER WEEK. PT USES [facility] FOR MOBILITY AND USES A TRANSPORT W/C WHEN GOES OUT WITH SON. +HCP ON FILE AND VERIFIED. [place] [facility] [place] P.T. HAS RECOMMENDED AR AT [place]. PER SON, PT'S FIRST CHOICE WILL BE [facility]. SECOND CHOICE WILL BE [facility] IF [facility] IS UNABLE TO OFFER. CM WILL AWAIT RESPONSE FROM [facility]. CM WILL CONTINUE TO FOLLOW.
--- NOTE | 2024-09-16 10:32 | MHC.SL.SWA ---
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 Patient reports having difficulty swallowing harder meats, especially beef, and regurgitation of solids. D/t hx esophageal dysphagia, recommend CHOPPED/ADVANCED (NDD3) solids and THIN liquids, pills WHOLE in LIQUID. Take small bites, chew food well, alternate with sips of liquid. Patient is able to feed herself w/o issue. She is admitted w/ acute CVA, presents with intermittent aphasia and brief periods of more garbled speech. Oral Medication Intake: Whole with Liquid Please contact the pharmacy regarding appropriate crushable or liquid drug formulations that are available whenever modified delivery is recommended. Compensatory Strategies and Precautions to be Taken for Safe Swallow: Sitting Upright (90 deg) Double Swallow Small Bites and Sips Alternate Liquids/Solids Rate of Ingestion Change Supervision While Eating and Drinking for Safe Swallow: Intermittent Supervision Foods to Avoid: [place] hard or tough foods (i.e. dry meats) Swallowing Recommended Treatments: Pharyngeal Resistive Exer Recommendation for Speech: Inpatient Speech Therapy Comment: INSTRUCTIONAL RESOURCE TEACHER to f/u 1-2x Frequency/Duration: 1-2 f/u Date Range for Service Req: Timeline to reassess: Promotions Director Clinican/Clinical Fellow: No Supervisory Statement: I have reviewed and agree with the student/clinical fellow's documentation: N/A Speech Language Pathologist: Lizabeth Duran M.A., CCC-INSTRUCTIONAL RESOURCE TEACHER
[2024-09-16 11:26] LABS: Glucose, Whole Blood 129 mg/dL (60-115)
--- NOTE | 2024-09-16 12:12 | PHA.MEDREC ---
Addendum entered by Stormy Yuen RPh 09/16/24 12:35: Reviewed by [facility] Original Note: Pharmacy Consult ? Medication Reconciliation Pharmacy has completed the medication reconciliation. Spoke with patients son at bedside who was able to confirm all of the patients medications. The son stated his mom was discharged from here 09/[address] stopped the Ariprazole 2mg tablet. He confirmed the Vitamin D2 tab once a week on Thursday but stated she was here on Thursday and was not able to take it until yesterday. Patients son confirmed the Gabapentin 300mg caps and confirmed his mom has been taking 1 capsule in the morning and at night instead if three times and he states its been working for her like that.
[2024-09-16] MEDS: Midazolam HCl 2 MG/2 ML VIAL 0.5 MG IVPUSH (16:49)
[2024-09-16 17:10] LABS: Glucose, Whole Blood 107 mg/dL (60-115)
[2024-09-16] MEDS: Acetaminophen 325 MG TABLET 650 MG PO (17:17)
[2024-09-16 17:18] LABS: Appearance Urine Cloudy; Color Urine Dark Yellow; Glucose Urine UA Negative (Negative); Leukocyte Esterase Urine Large (3+) (Negative); Nitrite Urine Positive (Negative); Specific Gravity - Urine >= 1.030 (1.005-1.025); UMIC TRIGGER UACC YES; Urine Blood Trace (Negative); Urine Ketones 15 mg/dL (Negative); Urine Protein 100 (2+) mg/dL (Neg-Trace)
[2024-09-16 17:20] LABS: Bacteria Urine 4+ (None Seen); Hyaline Casts Urine 0-2 /LPF (0-2); Squamous Epithelial Cell Urine 0-2 /HPF (0-2); UACC Culture Trigger YES; WBC Urine >50 /HPF (0-5)
--- NOTE | 2024-09-16 18:07 | PC.NURSE ---
Assumed care at 0700- Pt. neurological assessment fluctuating throughout shift- see neuro checks flowsheet. Transfer orders placed to Medical Telemetry-Pt. requiring Q1 neuro checks until 2300 09/16/24- Pt. will remain in ICU until completion of Q1 neuro checks. Pt. transported to MRI with ICU resource RN at 1200- see report. Bedside Echo completed- see report. COMMERCIAL BAKING TEACHER at bedside for swallow eval- see note. Pt. Remains SR/SB with BBB on tele, HR 50s-80s. SBP goal <180- PRN labetelol given once this shift with some effect. Pt. weaned to RA, 1L NC while sleeping. Straight cath completed for UA- see results. UC pending. Pt. son at bedside, updated by this RN. Q2 repositioning completed. Plan of care ongoing.
--- NOTE | 2024-09-16 20:56 | HO.SKINPHOTO ---
Location: Right Upper Arm Category: Stage: Length: Width: Depth: cm
[2024-09-16] MEDS: cefTRIAXone sodium 1 GM VIAL IVPUSH (21:30)
[2024-09-16] MEDS: Albumin Human 25 % 100 ML 133.33 ML IV ×2 (21:30→22:13)
[2024-09-16 21:37] LABS: Lactic Acid 1.8 mmol/L (0.5-2.0)
[2024-09-17] VITALS (9 sets, daily range): BP systolic 140–178; BP diastolic 80–102; PULSE 62–90; RESP 16–20; TEMP 36.1–36.9; O2SAT 92–97; BMI 36.0
[2024-09-17] MEDS: 0.9 % Sodium Chloride Flush 3 ML SYRINGE IVFLUSH ×4 (00:17→20:18)
--- NOTE | 2024-09-17 10:35 | HO.PM.IMPN ---
Subjective Subjective Date of Service: 09/17/24 Interval History: anxious, but neurologically back to normal Physical Exam Vital Signs: Vital Signs: Last Vital Signs Temp 98.4 F 09/17/24 07:36 Pulse 90 09/17/24 07:36 Resp 16 09/17/24 07:36 BP 168/90 H 09/17/24 08:02 Pulse Ox 94 09/17/24 07:36 O2 Del Method Room Air 09/17/24 07:36 O2 Flow Rate 1 09/16/24 16:00 BMI result Body Mass Index 36.0 Neuro: Other: She is alert and awake with normal spontaneity of speech fluency comprehension and affect. Face is symmetrical. Visual russo are full. Extraocular muscles are intact. There is no obvious focal arm or leg weakness. Plantars are flexor. Speech is normal. Objective Data Active Medications Acetaminophen (Acetaminophen 325 Mg Tablet) 650 mg PO Q6H PRN PRN Reason: Pain, Mild 1-3,fever,headache Last Admin: 09/16/24 17:17 Dose: 650 mg Documented By: ANNIKA Albuterol Sulfate (Albuterol Sulfate 90 Mcg 8 Gm Inhaler) 2 puff INHALE Q4H PRN PRN Reason: wheezing Ceftriaxone Sodium (Ceftriaxone Sodium 1 Gm Vial) 1 gm IVPUSH Q24H JENNIFER Last Admin: 09/16/24 21:30 Dose: 1 gm Documented By: ARAMIS Escitalopram Oxalate (Escitalopram Oxalate 20 Mg Tablet) 20 mg PO DAILY [facility] Gabapentin (Gabapentin 300 Mg Capsule) 300 mg PO BID [facility] Labetalol HCl (Labetalol Hcl 100 Mg/20 Ml Vial) 10 mg IVPUSH Q10M PRN PRN Reason: sbp >180 Last Admin: 09/16/24 16:47 Dose: 10 mg Documented By: ANNIKA Lorazepam (Lorazepam 0.5 Mg Tablet) 0.5 mg PO DAILY PRN PRN Reason: Anxiety Lorazepam (Lorazepam 1 Mg Tablet) 1 mg PO DAILY@1800 [facility] Losartan Potassium (Losartan Potassium 25 Mg Tablet) 25 mg PO DAILY [facility]; Protocol Magnesium Hydroxide (Milk Of Magnesia 30 Ml Oral.Susp) 30 ml PO DAILY PRN PRN Reason: Constipation Methenamine Hippurate (Methenamine Hippurate 1 Gm Tablet) 1 gm PO DAILY [facility] Metoprolol Tartrate (Metoprolol Tartrate 100 Mg Tablet) 100 mg PO BID [facility]; Protocol Non-Formulary Medication (Umeclidinium-Vilanterol [Anoro Ellipta]) 1 each INHALE DAILY [facility] Non-Formulary Medication (Dexlansoprazole) 30 mg PO DAILY@1900 [facility] Non-Formulary Medication (Simvastatin [Zocor]) 40 mg PO BEDTIME [facility] Sodium Chloride (0.9 % Sodium Chloride Flush 3 Ml Syringe) 3 ml IVFLUSH QSHIFT [facility] Last Admin: 09/17/24 08:43 Dose: 3 ml Documented By: GEMYM Labs 09/16/24 04:53 09/16/24 07:56 Labs: Laboratory Results - last 24 hr 09/16/24 09/16/24 09/16/24 11:23 17:06 17:07 POC Glucose 129 H 107 Lactic Acid Urine Color Dark Yellow Urine Appearance Cloudy Urine pH 6.[address] >= 1.030 H Urine Protein 100 (2+) H Urine Glucose (UA) Negative Urine Ketones 15 Urine Blood Trace H Urine Nitrite Positive H Ur Leukocyte Esterase Large (3+) H Urine RBC 3-5 H Urine WBC >50 H Ur Squamous Epith Cells 0-2 Urine Bacteria 4+ Hyaline Casts 0-2 09/16/24 21:11 POC Glucose Lactic Acid 1.8 Urine Color Urine Appearance Urine pH Ur Specific [address] Urine Protein Urine Glucose (UA) Urine Ketones Urine Blood Urine Nitrite Ur Leukocyte Esterase Urine RBC Urine WBC Ur Squamous Epith Cells Urine Bacteria Hyaline Casts Assessment and Plan (1) Morbid obesity due to excess calories: Status: Acute Plan 73F PMH chronic diastolic CHF, history of CVA, moderate persistent asthma, paroxysmal AFib no longer on anticoagulation due to GI bleed, bioprosthetic aortic and mitral valve replacements, ulcerative colitis, interstitial cystitis, recurrent UTIs, PTSD, anxiety, obesity presented 09/15/24 with slurred speech and lethargy was given TNK for suspected CVA, downgraded to medical floor after 24 hours, symptoms have resolved. Dysarthria Possible TIA versus hypertensive encephalopathy, MRI negative for acute stroke Restarting blood pressure meds, will be rechallenged with anticoagulation Continue statin Obesity Weight loss recommended Mood disorder Continue Ativan, Lexapro Moderate persistent asthma Continue inhalers Paroxysmal AFib Previously stopped anticoagulation due to GI bleed we will rechallenge with apixaban Continue metoprolol Recurrent UTIs Methenamine DVT prophylaxis with apixaban Full Code reason for continued hospitalization: Monitoring post possible stroke, BP control Quality Stroke Does the patient have a stroke diagnosis?: Yes Reason for No Anti-thrombotic by Day Two: N/A - Med Ordered VTE Prior VTE?: No VTE Risk Level:: Medical - moderate - high VTE Device Contraindication: Treatment Not Indicated VTE Drug Contraindication: N/A - Med Ordered
[2024-09-17] MEDS: Methenamine Hippurate 1 GM TABLET PO (12:02)
[2024-09-17] MEDS: Losartan Potassium 25 MG TABLET PO (12:02)
[2024-09-17] MEDS: Ascorbic Acid 500 MG TABLET PO (12:02)
[2024-09-17] MEDS: Metoprolol Tartrate 100 MG TABLET PO ×2 (12:02→20:12)
[2024-09-17 12:22] LABS: Glucose, Whole Blood 143 mg/dL (60-115)
[2024-09-17] MEDS: Acetaminophen 325 MG TABLET 650 MG PO (16:34)
[2024-09-17 17:48] LABS: Glucose, Whole Blood 116 mg/dL (60-115)
[2024-09-17] MEDS: LORazepam 1 MG TABLET PO (17:50)
[2024-09-17] MEDS: Omeprazole 20 MG CAPSULE.DR PO (17:50)
[2024-09-17] MEDS: cefTRIAXone sodium 1 GM VIAL IVPUSH (20:12)
[2024-09-17] MEDS: Apixaban 5 MG TABLET PO (20:12)
[2024-09-17] MEDS: Atorvastatin Calcium 20 MG TABLET PO (20:12)
[2024-09-17] MEDS: Gabapentin 300 MG CAPSULE PO (20:12)
[2024-09-18] VITALS (12 sets, daily range): BP systolic 140–220; BP diastolic 74–101; PULSE 58–74; RESP 16–20; TEMP 36.2–36.7; O2SAT 90–97; BMI 36.2
[2024-09-18 06:47] LABS: Glucose, Whole Blood 90 mg/dL (60-115)
[2024-09-18 07:46] LABS: Hematocrit 41.1 % (37.0-47.0); Hemoglobin 13.9 g/dl (12.0-16.0); Mean Corpuscular HGB Conc 33.8 g/dl (31.0-35.0); Mean Corpuscular Hemoglobin 28.7 pg (27.0-33.0); Mean Corpuscular Volume 84.9 fL (80.0-98.0); Mean Platelet Volume 9.2 fL (9.4-12.3); Platelet Count 172 X10*3/uL (160-400); Red Blood Count 4.84 X10*6/uL (4.20-5.50); White Blood Count 9.3 X10*3/uL (4.8-10.8)
[2024-09-18 08:06] LABS: Anion Gap 15 (12-20); Blood Urea Nitrogen 11 mg/dL (9-16); Calcium 9.5 mg/dL (8.4-10.2); Carbon Dioxide 26 mmol/L (22-29); Chloride 96 mmol/L (96-108); Creatinine Clr Calc Pharmacy 66.7; Estimated Glomerular Filt Rate > 60; Glucose Random 87 mg/dL (60-115); Potassium 3.8 mmol/L (3.3-5.1); Sodium 133 mmol/L (135-145)
--- NOTE | 2024-09-18 08:32 | MHC.CM.PN ---
Addendum entered by Evette Allen 09/18/24 16:48: [facility] UNABLE TO OFFER, STATING PT DOES NOT QUALIFY FOR THAT LOC CM CALLED PTS SON, WHO AGREES WITH A REFERRAL BEING SENT TO [facility], BUT STATES THERE ARE NO OTHER SNFS HE WOULD AGREE TO HE ALSO STATES HE MAY AGREE TO [facility], HOWEVER THEY HAVE TO BE ON TIME AND STAY LONG ENOUGH TO JUSTIFY HOW MUCH THEY CHARGE THE INSURANCE BAY IS FOLLOWING IN THE EVENT HE AGREES TO [facility] Original Note: MIRELLA MET WITH PTS SON WHO REPORTS PT IS ONLY WILLING TO GO TO [facility] IF SHE IS NOT OFFERED A BED THERE, SHE WILL DC HOME. HE REPORTS HE HAS BEEN CARING FOR HER FOR MANY YEARS, AND OTHER FACILITIES MAKE HER MUCH WORSE HE IS AWARE [facility] HAS NOT OFFERED A BED AT THIS TIME AND UPDATES WERE SENT FOR A DETERMINATION
[2024-09-18] MEDS: Methenamine Hippurate 1 GM TABLET PO (10:17)
[2024-09-18] MEDS: Apixaban 5 MG TABLET PO (10:18)
[2024-09-18] MEDS: Escitalopram Oxalate 20 MG TABLET PO (10:18)
[2024-09-18] MEDS: Ascorbic Acid 500 MG TABLET PO (10:18)
[2024-09-18] MEDS: Gabapentin 300 MG CAPSULE PO ×2 (10:18→21:25)
[2024-09-18] MEDS: 0.9 % Sodium Chloride Flush 3 ML SYRINGE IVFLUSH ×2 (10:18→17:49)
[2024-09-18] MEDS: Losartan Potassium 25 MG TABLET PO (10:41)
--- NOTE | 2024-09-18 11:01 | P.PNIM_ITS ---
Subjective Subjective Date of Service: 09/18/24 Interval History: anxious, but neurologically back to normal Physical Exam 2 Vital Signs: Vital Signs: Last Vital Signs Temp 98.0 F 09/18/24 08:00 Pulse 58 09/18/24 10:45 Resp 20 09/18/24 03:34 BP 142/82 H 09/18/24 10:40 Pulse Ox 93 09/18/24 09:22 O2 Del Method Room Air 09/18/24 09:22 O2 Flow Rate 1 09/16/24 16:00 BMI result Body Mass Index 36.2 Neuro: Other: She is alert and awake with normal spontaneity of speech fluency comprehension and affect. Face is symmetrical. Visual russo are full. Extraocular muscles are intact. There is no obvious focal arm or leg weakness. Plantars are flexor. Speech is normal. Objective Data Active Medications Acetaminophen (Acetaminophen 325 Mg Tablet) 650 mg PO Q6H PRN PRN Reason: Pain, Mild 1-3,fever,headache Last Admin: 09/17/24 16:34 Dose: 650 mg Documented By: ALTHEA Albuterol Sulfate (Albuterol Sulfate 90 Mcg 8 Gm Inhaler) 2 puff INHALE RQ4H PRN PRN Reason: wheezing Apixaban (Apixaban 5 Mg Tablet) 5 mg PO BID [facility] Last Admin: 09/18/24 10:18 Dose: 5 mg Documented By: RUTH Ascorbic Acid (Ascorbic Acid 500 Mg Tablet) 500 mg PO DAILY [facility] Last Admin: 09/18/24 10:18 Dose: 500 mg Documented By: RUTH Atorvastatin Calcium (Atorvastatin Calcium 20 Mg Tablet) 20 mg PO BEDTIME [facility], [facility]1983 Last Admin: 09/17/24 20:12 Dose: 20 mg Documented By: ELISHA Ceftriaxone Sodium (Ceftriaxone Sodium 1 Gm Vial) 1 gm IVPUSH Q24H [facility], [facility] Last Admin: 09/17/24 20:12 Dose: 1 gm Documented By: ELISHA Escitalopram Oxalate (Escitalopram Oxalate 20 Mg Tablet) 20 mg PO DAILY [facility] Last Admin: 09/18/24 10:18 Dose: 20 mg Documented By: RUTH Gabapentin (Gabapentin 300 Mg Capsule) 300 mg PO BID [facility] Last Admin: 09/18/24 10:18 Dose: 300 mg Documented By: RUTH Labetalol HCl (Labetalol Hcl 100 Mg/20 Ml Vial) 10 mg IVPUSH Q10M PRN PRN Reason: sbp >180 Last Admin: 09/16/24 16:47 Dose: 10 mg Documented By: ANNIKA Lorazepam (Lorazepam 0.5 Mg Tablet) 0.5 mg PO DAILY PRN PRN Reason: Anxiety Lorazepam (Lorazepam 1 Mg Tablet) 1 mg PO DAILY@1800 [facility] Last Admin: 09/17/24 17:50 Dose: 1 mg Documented By: ALTHEA Losartan Potassium (Losartan Potassium 25 Mg Tablet) 25 mg PO DAILY [facility]; Protocol Last Admin: 09/18/24 10:41 Dose: 25 mg Documented By: RUTH Magnesium Hydroxide (Milk Of Magnesia 30 Ml Oral.Susp) 30 ml PO DAILY PRN PRN Reason: Constipation Methenamine Hippurate (Methenamine Hippurate 1 Gm Tablet) 1 gm PO DAILY [facility] Last Admin: 09/18/24 10:17 Dose: 1 gm Documented By: RUTH Metoprolol Tartrate (Metoprolol Tartrate 100 Mg Tablet) 100 mg PO BID [facility], [facility]; Protocol Last Admin: 09/18/24 10:44 Dose: Not Given Documented By: RUTH Non-Admin Reason: bradycardic. aware Non-Formulary Medication (Umeclidinium-Vilanterol [Anoro Ellipta]) 1 each INHALE DAILY [facility], [facility] Non-Formulary Medication (Solifenacin [Vesicare]) 10 mg PO DAILY [facility] Non-Formulary Medication (Vibegron [Gemtesa]) 75 mg PO DAILY [facility] Omeprazole (Omeprazole 20 Mg Capsule.) 20 mg PO DAILY@0630 [facility] Last Admin: 09/18/24 05:52 Dose: Not Given Documented By: ELISHA Non-Admin Reason: Patient Refused Sodium Chloride (0.9 % Sodium Chloride Flush 3 Ml Syringe) 3 ml IVFLUSH QSHIFT [facility] Last Admin: 09/18/24 10:18 Dose: 3 ml Documented By: RUTH Labs 09/18/24 07:39 09/18/24 07:39 Labs: Laboratory Results - last 24 hr 09/17/24 09/17/24 09/18/24 12:16 17:43 06:40 MCV MCH MCHC RDW Plt Count MPV Absolute Nucleated RBC Nucleated RBC % (auto) Anion Gap Estim Creat Clear Calc Estimated GFR POC Glucose 143 H 116 H 90 Random Glucose Calcium 09/18/24 07:39 MCV 84.9 MCH 28.7 MCHC 33.8 RDW 13.0 Plt Count 172 MPV 9.2 L Absolute Nucleated RBC 0.000 Nucleated RBC % (auto) 0.0 Anion Gap 15 Estim Creat Clear Calc 66.7 Estimated GFR > 60 POC Glucose Random Glucose 87 Calcium 9.5 Microbiology Microbiology Results: Microbiology 09/16/24 21:11 Blood Culture - Preliminary Blood - Venous No growth after 24 hours. 09/16/24 21:11 Blood Culture - Preliminary Blood - Venous No growth after 24 hours. 09/16/24 17:22 Urine Culture - Preliminary Urine clean catch - Clean Catch Midstream Culture in progress. Assessment and Plan (1) Morbid obesity due to excess calories: Status: Acute Plan 73F PMH chronic diastolic CHF, history of CVA, moderate persistent asthma, paroxysmal AFib no longer on anticoagulation due to GI bleed, bioprosthetic aortic and mitral valve replacements, ulcerative colitis, interstitial cystitis, recurrent UTIs, PTSD, anxiety, obesity presented 09/15/24 with slurred speech and lethargy was given TNK for suspected CVA, downgraded to medical floor after 24 hours, symptoms have resolved. Dysarthria Possible TIA versus hypertensive encephalopathy, MRI negative for acute stroke Restarting blood pressure meds rechallenged with anticoagulation but had severe bruising so will stop Continue statin Obesity Weight loss recommended Mood disorder Continue Ativan, Lexapro Moderate persistent asthma Continue inhalers Paroxysmal AFib not tolerating AC Continue metoprolol Recurrent UTIs Methenamine DVT prophylaxis mechanical due to bruising Full Code reason for continued hospitalization: Monitoring post possible stroke, BP control Quality Stroke Does the patient have a stroke diagnosis?: Yes Reason for No Anti-thrombotic by Day Two: N/A - Med Ordered VTE Prior VTE?: No VTE Risk Level:: Medical - moderate - high VTE Device Contraindication: Treatment Not Indicated VTE Drug Contraindication: N/A - Med Ordered
[2024-09-18 12:09] LABS: Glucose, Whole Blood 175 mg/dL (60-115)
[2024-09-18 12:51] LABS: INR Whole Blood 1.1 (0.9-1.1)
[2024-09-18] MEDS: Phenazopyridine HCL 100 MG TABLET PO (17:48)
[2024-09-18] MEDS: LORazepam 1 MG TABLET PO (17:48)
[2024-09-18] MEDS: Acetaminophen 325 MG TABLET 650 MG PO (17:49)
[2024-09-18] MEDS: Atorvastatin Calcium 20 MG TABLET PO (21:25)
[2024-09-18] MEDS: Metoprolol Tartrate 100 MG TABLET PO (21:25)
[2024-09-18] MEDS: cefTRIAXone sodium 1 GM VIAL IVPUSH (21:26)
[2024-09-18] MEDS: Ibuprofen 400 MG TABLET PO (22:26)
[2024-09-19 00:01] VITALS: BP 144/98
[2024-09-19 03:45] VITALS: BP 188/88; PULSE 67; RESP 18; TEMP 36.7; O2SAT 95
[2024-09-19] MEDS: Losartan Potassium 25 MG TABLET PO (04:43)
[2024-09-19] MEDS: Omeprazole 20 MG CAPSULE.DR PO (05:46)
[2024-09-19 07:10] LABS: Hematocrit 39.2 % (37.0-47.0); Hemoglobin 13.2 g/dl (12.0-16.0); Mean Corpuscular HGB Conc 33.7 g/dl (31.0-35.0); Mean Corpuscular Hemoglobin 28.5 pg (27.0-33.0); Mean Corpuscular Volume 84.7 fL (80.0-98.0); Platelet Count 193 X10*3/uL (160-400); Red Blood Count 4.63 X10*6/uL (4.20-5.50); Red Cell Distribution Width 12.6 % (11.0-16.0); White Blood Count 7.3 X10*3/uL (4.8-10.8)
[2024-09-19 07:19] LABS: Anion Gap 15 (12-20); Blood Urea Nitrogen 14 mg/dL (9-16); Calcium 9.2 mg/dL (8.4-10.2); Carbon Dioxide 25 mmol/L (22-29); Chloride 92 mmol/L (96-108); Creatinine Clr Calc Pharmacy 67.7; Estimated Glomerular Filt Rate > 60; Glucose Random 87 mg/dL (60-115); Potassium 3.7 mmol/L (3.3-5.1); Sodium 128 mmol/L (135-145)
[2024-09-19 07:35] VITALS: BP 194/90; PULSE 61; RESP 18; TEMP 36.1; O2SAT 94
--- NOTE | 2024-09-19 08:24 | HO.PM.IMPN ---
Subjective Subjective Date of Service: 09/19/24 Interval History: anxious, but neurologically back to normal Physical Exam Vital Signs: Vital Signs: Last Vital Signs Temp 97.0 F 09/19/24 07:35 Pulse 61 09/19/24 07:35 Resp 18 09/19/24 07:35 BP 194/90 H 09/19/24 07:35 Pulse Ox 94 09/19/24 07:35 O2 Del Method Room Air 09/19/24 07:35 O2 Flow Rate 1 09/16/24 16:00 BMI result Body Mass Index 36.2 Neuro: Other: She is alert and awake with normal spontaneity of speech fluency comprehension and affect. Face is symmetrical. Visual russo are full. Extraocular muscles are intact. There is no obvious focal arm or leg weakness. Plantars are flexor. Speech is normal. Objective Data Active Medications Acetaminophen (Acetaminophen 325 Mg Tablet) 650 mg PO Q6H PRN PRN Reason: Pain, Mild 1-3,fever,headache Last Admin: 09/18/24 17:49 Dose: 650 mg Documented By: RUTH Albuterol Sulfate (Albuterol Sulfate 90 Mcg 8 Gm Inhaler) 2 puff INHALE RQ4H PRN PRN Reason: wheezing Amlodipine Besylate (Amlodipine Besylate 5 Mg Tablet) 5 mg PO DAILY [facility]; Protocol Ascorbic Acid (Ascorbic Acid 500 Mg Tablet) 500 mg PO DAILY [facility] Last Admin: 09/18/24 10:18 Dose: 500 mg Documented By: RUTH Atorvastatin Calcium (Atorvastatin Calcium 20 Mg Tablet) 20 mg PO BEDTIME [facility] Last Admin: 09/18/24 21:25 Dose: 20 mg Documented By: RUTH Ceftriaxone Sodium (Ceftriaxone Sodium 1 Gm Vial) 1 gm IVPUSH Q24H [facility] Last Admin: 09/18/24 21:26 Dose: 1 gm Documented By: RUTH Escitalopram Oxalate (Escitalopram Oxalate 20 Mg Tablet) 20 mg PO DAILY [facility] Last Admin: 09/18/24 10:18 Dose: 20 mg Documented By: RUTH Gabapentin (Gabapentin 300 Mg Capsule) 300 mg PO BID [facility] Last Admin: 09/18/24 21:25 Dose: 300 mg Documented By: RUTH Labetalol HCl (Labetalol Hcl 100 Mg/20 Ml Vial) 10 mg IVPUSH Q10M PRN PRN Reason: sbp >180 Last Admin: 09/16/24 16:47 Dose: 10 mg Documented By: ANNIKA Lorazepam (Lorazepam 0.5 Mg Tablet) 0.5 mg PO DAILY PRN PRN Reason: Anxiety Lorazepam (Lorazepam 1 Mg Tablet) 1 mg PO DAILY@1800 [facility] Last Admin: 09/18/24 17:48 Dose: 1 mg Documented By: RUTH Losartan Potassium (Losartan Potassium 50 Mg Tablet) 50 mg PO DAILY [facility]; Protocol Magnesium Hydroxide (Milk Of Magnesia 30 Ml Oral.Susp) 30 ml PO DAILY PRN PRN Reason: Constipation Methenamine Hippurate (Methenamine Hippurate 1 Gm Tablet) 1 gm PO DAILY [facility] Last Admin: 09/18/24 10:17 Dose: 1 gm Documented By: RUTH Metoprolol Tartrate (Metoprolol Tartrate 100 Mg Tablet) 100 mg PO BID [facility]; Protocol Last Admin: 09/18/24 21:25 Dose: 100 mg Documented By: RUTH Non-Formulary Medication (Umeclidinium-Vilanterol [Anoro Ellipta]) 1 each INHALE DAILY [facility] Non-Formulary Medication (Solifenacin [Vesicare]) 10 mg PO DAILY [facility] Non-Formulary Medication (Vibegron [Gemtesa]) 75 mg PO DAILY [facility] Omeprazole (Omeprazole 20 Mg Capsule.Dr) 20 mg PO DAILY@0630 [facility] Last Admin: 09/19/24 05:46 Dose: 20 mg Documented By: ISABELLA Phenazopyridine HCl (Phenazopyridine Hcl 100 Mg Tablet) 100 mg PO BIDWM PRN PRN Reason: dysuria Stop: 09/20/24 16:59 Last Admin: 09/18/24 17:48 Dose: 100 mg Documented By: RUTH Sodium Chloride (0.9 % Sodium Chloride Flush 3 Ml Syringe) 3 ml IVFLUSH QSHIFT [facility] Last Admin: 09/19/24 00:19 Dose: Not Given Documented By: ANTOINC Non-Admin Reason: Patient Asleep Labs 09/19/24 06:16 09/19/24 06:16 Labs: Laboratory Results - last 24 hr 09/15/24 09/18/24 09/19/24 22:17 12:00 06:16 MCV 84.7 MCH 28.5 MCHC 33.7 RDW 12.6 Plt Count 193 MPV 10.0 Absolute Nucleated RBC 0.000 Nucleated RBC % (auto) 0.0 PT (Fingerstick) 13.0 INR (Fingerstick) 1.1 Anion Gap 15 Estim Creat Clear Calc 67.7 Estimated GFR > 60 POC Glucose 175 H Random Glucose 87 Calcium 9.2 Microbiology Microbiology Results: Microbiology 09/16/24 17:22 Urine Culture - Preliminary Urine clean catch - Clean Catch Midstream Escherichia coli Gram positive cocci 09/16/24 21:11 Blood Culture - Preliminary Blood - Venous No growth after 48 hours. 09/16/24 21:11 Blood Culture - Preliminary Blood - Venous No growth after 48 hours. Assessment and Plan (1) Morbid obesity due to excess calories: Status: Acute Plan 73F PMH chronic diastolic CHF, history of CVA, moderate persistent asthma, paroxysmal AFib no longer on anticoagulation due to GI bleed, bioprosthetic aortic and mitral valve replacements, ulcerative colitis, interstitial cystitis, recurrent UTIs, PTSD, anxiety, obesity presented 09/15/24 with slurred speech and lethargy was given TNK for suspected CVA, downgraded to medical floor after 24 hours, symptoms have resolved. Dysarthria Possible TIA versus hypertensive encephalopathy, MRI negative for acute stroke Restarting blood pressure meds - increased losartan to 50mg daily, starting amlodipine 5mg daily rechallenged with anticoagulation but had severe bruising so will stop Continue statin hyponatremia acute fluid restrict, monitor Obesity Weight loss recommended Mood disorder Continue Ativan, Lexapro Moderate persistent asthma Continue inhalers Paroxysmal AFib not tolerating AC Continue metoprolol Recurrent UTIs Methenamine DVT prophylaxis mechanical due to bruising Full Code reason for continued hospitalization: BP control, hyponatremia Quality Stroke Does the patient have a stroke diagnosis?: Yes Reason for No Anti-thrombotic by Day Two: N/A - Med Ordered VTE Prior VTE?: No VTE Risk Level:: Medical - moderate - high VTE Device Contraindication: Treatment Not Indicated VTE Drug Contraindication: N/A - Med Ordered
[2024-09-19] MEDS: Losartan Potassium 50 MG TABLET PO (08:35)
[2024-09-19] MEDS: 0.9 % Sodium Chloride Flush 3 ML SYRINGE IVFLUSH ×3 (08:37→21:10)
[2024-09-19] MEDS: amLODIPine Besylate 5 MG TABLET PO (08:37)
[2024-09-19] MEDS: Methenamine Hippurate 1 GM TABLET PO (08:37)
[2024-09-19] MEDS: Gabapentin 300 MG CAPSULE PO ×2 (08:37→20:56)
[2024-09-19] MEDS: Escitalopram Oxalate 20 MG TABLET PO (08:37)
[2024-09-19] MEDS: Ascorbic Acid 500 MG TABLET PO (10:19)
--- NOTE | 2024-09-19 10:33 | MHC.CM.PN ---
EMR REVIEWED, PT W/STROKE, PER HOSPITLALIST PT WILL REMAIN INPT FOR BP CONTROL AND HYPONATREMIA, CM ALSO AWAITING RESPONSE FROM [facility], PER PREVIOUS CM NOTE FROM 09/18 PT'S SON ONLY AGREEABLE TO [facility] FOR STR OTHERWISE WILL TAKE PT HOME, SON MAY OR MAY NOT BE AGREEABLE TO [facility] FOR SERVICES, CM WILL CONT TO FOLLOW DC NEEDS.
[2024-09-19 11:23] VITALS: BP 153/78; PULSE 59; RESP 17; TEMP 36.1; O2SAT 94
[2024-09-19] MEDS: Acetaminophen 325 MG TABLET 650 MG PO ×2 (13:23→19:30)
--- NOTE | 2024-09-19 13:27 | PC.NURSE ---
guy area pain #8 , pt requesting Acetaminophen
--- NOTE | 2024-09-19 15:16 | MHC.SP.ADU ---
Referring provider: Jaclyn Graves Reason for Referral: Cognitive Evaluation Type of Treatment: 43482 Standardized Cognitive Performance Testing, per hour Date of Plan of Treatment: 09/15/24 Onset of Symptoms/Illness: 09/15/24 Date Treatment Started: 09/19/24 Medical Diagnosis: Mild cognitive communication deficits Primary Speech Language Diagnosis: R41.841 Cognitive communication disorder Secondary Speech Language Diagnosis: R41.844 Frontal lobe and executive function deficit History MD note: 73F PMH chronic diastolic CHF, history of CVA, moderate persistent asthma, paroxysmal AFib no longer on anticoagulation due to GI bleed, bioprosthetic aortic and mitral valve replacements, ulcerative colitis, interstitial cystitis, recurrent UTIs, PTSD, anxiety, obesity presented 09/15/24 with slurred speech and lethargy was given TNK for suspected CVA, downgraded to medical floor after 24 hours, symptoms have resolved. Medical History: Other: Medical History Memory loss, short term Carpal tunnel syndrome on both sides Cataract CHF exacerbation History of stroke Abnormal colonoscopy (~04/03/22) Wheezing Anemia Urinary incontinence Right carpal tunnel syndrome Post cardiotomy syndrome PTSD (post-traumatic stress disorder) Osteoarthritis, hip, bilateral Interstitial cystitis Lipid disorder Insomnia Generalized anxiety disorder with panic attacks Major depression, recurrent History of ulcerative colitis Chronic GERD Diastolic congestive heart failure Paroxysmal atrial fibrillation Age related osteoporosis Asthma, moderate persistent Anticoagulant long-term use Iron deficiency anemia Establishing care with new doctor, encounter for Hypertension, essential Surgical History Hx of tonsillectomy Hx of colonoscopy Hx of rotator cuff surgery History of arthroplasty of both knees Hx of hysterectomy Status post mitral valve replacement Status post aortic valve replacement History of kyphoplasty History of artificial heart valve Medication List: Recent Hospitalizations: No Respiratory Needs: Nasal Cannula Patient Orientation: Alert & Oriented x 4 Social History: Employment Status: Retired Highest level of education obtained: Current Living Situation: Pt lives in an apartment on the third floor of a building without an elevator. Pt reports her son is around sometimes to assist her with shopping, etc. and he placed chairs on each landing of the apartment building for pt as she gets short of breath walking up the stairs. Pt endorses frequent SOB with minimal exertion, and wears oxygen at home. Pt has had a history of TIAs and feels her memory is becoming less efficient. Pt is hearing impaired, with hearing aides, but she cannot wear them as they have not been calibrated. Pt reports she has an ENT appointment soon for FRY calibration. Pt has not had NEUROLOGY TECHNOLOGIST tx in previous rehabilitation stays. NEUROLOGY TECHNOLOGIST recc direct intervention to address processing, attention, memory, executive functioning and overall functional communication. Assistive Devices in use: Comment: Past Speech Language Therapy: Other Therapies Seen in Current Calendar Year: Other: Swallowing History: Dysphagia Specific: Comments: Patient was on NC, removed by RN during this assessment, satting on RA at 97. Patient's speech was mostly clear, however, she did have periods of garbled speech and hesitancies with word finding difficulty. Patient commented, Here it goes again. It's hard to speak again. Patient appropriately responded to questions, provided history, and engaged in conversation. She commented on the construction happening outside her window and stated, I cannot believe I had a stroke. After a few minutes, patient then asked, Wait where am I? When asked, she was able to provide her full name, , location, and situation that brought her to the hospital. Discussed observations w/ RN, RN endorsed intermittent aphasia in her interactions with the patient as well. Pre-eval Risk for Aspiration: Neurological Condition Pre-evaluation Dietary Consistencies: Pre-eval Liquid Intake: Pre-eval Medication Intake: Reported Speech, Language, Cognition difficulties: Understanding Attention Memory Cognition Problem Solving Comments: Pt presents with mild deficits in executive functioning, cognition, attention, memory and functional communication characterized by Quality of Life: Patient Stated Goal of Speech-Language Therapy: Assessment Speech Production: Disorganized Clinical Impression: Impaired Observations: Informal Voice Assessment: Voice Loudness: Normal Voice Nasal Resonance: Normal Voice Oral Resonance: Normal Voice Phonatory-based Quality: Breathy Voice Pitch: Normal Voice Other Observations: Inadequate Breath Support Clinical Impression: Impaired Clinicial Observations: Pt presents with mild dysarthria secondary to poor breath support in moments of lengthy verbal expression (press of speech). Tests of Speech & Lang Adults: Clinical Impression: Observations: Tests of Cognition: Clinical Impression: Observations: Augmentative and Alternative Communication: Observations: Impressions and Recommendations Summary: Impact on Daily Function/Activity Limitations: Daily Activities: Moderate Interpersonal Interactions: Moderate Education: Employment: Community: Moderate Prognosis for Improvement: Good Comment: Recommendation for Speech Therapy: Speech Therapy through [facility] Speech Therapy through Rehab Facility Recommended Referrals to be Discussed with Primary Care Provider: Audiological Evaluation Other: See Comment NEUROLOGY TECHNOLOGIST differential diagnosis; NEUROLOGY TECHNOLOGIST in next setting should determine most appropriate standardized assessment relative to pt presentation Patient Education: Completed: Yes Patient/Caregiver Education: Described Results of Evaluation Patient expressed understanding of evaluation Patient requires further education on strategies Comments/Barriers to Learning: Relations Manager Clinican/Clinical Fellow: No Supervisory Statement: N/A Speech Language Pathologist: Yaima Ngo M.S., [facility]-NEUROLOGY TECHNOLOGIST
[2024-09-19 16:00] VITALS: BP 154/70; PULSE 68; RESP 18; TEMP 36.5; O2SAT 92
[2024-09-19] MEDS: LORazepam 1 MG TABLET PO (18:02)
[2024-09-19 19:30] VITALS: BP 145/85; PULSE 70; RESP 20; TEMP 36.3; O2SAT 96
[2024-09-19] MEDS: cefTRIAXone sodium 1 GM VIAL IVPUSH (20:57)
[2024-09-19] MEDS: Atorvastatin Calcium 20 MG TABLET PO (20:57)
[2024-09-19] MEDS: Metoprolol Tartrate 100 MG TABLET PO (21:08)
[2024-09-19] MEDS: Phenazopyridine HCL 100 MG TABLET PO (21:08)
[2024-09-20] VITALS: BP 145/80; PULSE 69; RESP 20; TEMP 36.8; O2SAT 93
[2024-09-20 04:00] VITALS: BP 152/71; PULSE 63; RESP 20; TEMP 36.7; O2SAT 93
[2024-09-20 06:41] LABS: Hematocrit 41.6 % (37.0-47.0); Hemoglobin 14.5 g/dl (12.0-16.0); Mean Corpuscular HGB Conc 34.9 g/dl (31.0-35.0); Mean Corpuscular Hemoglobin 28.5 pg (27.0-33.0); Mean Corpuscular Volume 81.7 fL (80.0-98.0); Mean Platelet Volume 9.6 fL (9.4-12.3); Platelet Count 222 X10*3/uL (160-400); Red Blood Count 5.09 X10*6/uL (4.20-5.50); Red Cell Distribution Width 12.4 % (11.0-16.0); White Blood Count 8.2 X10*3/uL (4.8-10.8)
[2024-09-20 06:54] LABS: Anion Gap 14 (12-20); Blood Urea Nitrogen 12 mg/dL (9-16); Calcium 9.7 mg/dL (8.4-10.2); Carbon Dioxide 25 mmol/L (22-29); Chloride 95 mmol/L (96-108); Creatinine Clr Calc Pharmacy 68.7; Estimated Glomerular Filt Rate > 60; Glucose Random 103 mg/dL (60-115); Potassium 4.1 mmol/L (3.3-5.1); Sodium 130 mmol/L (135-145)
[2024-09-20] MEDS: Acetaminophen 325 MG TABLET 650 MG PO (07:45)
[2024-09-20 08:00] VITALS: BP 140/82; PULSE 56; RESP 19; TEMP 36.1; O2SAT 95
[2024-09-20] MEDS: Losartan Potassium 50 MG TABLET PO (08:54)
[2024-09-20] MEDS: Ascorbic Acid 500 MG TABLET PO (08:54)
[2024-09-20] MEDS: Metoprolol Tartrate 100 MG TABLET PO (08:54)
[2024-09-20] MEDS: Gabapentin 300 MG CAPSULE PO (08:54)
[2024-09-20] MEDS: Methenamine Hippurate 1 GM TABLET PO (08:54)
[2024-09-20] MEDS: amLODIPine Besylate 5 MG TABLET PO (08:54)
[2024-09-20] MEDS: Escitalopram Oxalate 20 MG TABLET PO (08:54)
[2024-09-20] MEDS: 0.9 % Sodium Chloride Flush 3 ML SYRINGE IVFLUSH (08:56)
--- NOTE | 2024-09-20 09:37 | P.PNIM_ITS ---
Subjective Subjective Date of Service: 09/20/24 Interval History: improved Physical Exam 2 Vital Signs: Vital Signs: Last Vital Signs Temp 97.0 F 09/20/24 08:00 Pulse 56 09/20/24 08:00 Resp 19 09/20/24 08:00 BP 140/82 H 09/20/24 08:00 Pulse Ox 95 09/20/24 08:00 O2 Del Method Room Air 09/20/24 08:00 O2 Flow Rate 1 09/16/24 16:00 BMI result Body Mass Index 36.2 Neuro: Other: She is alert and awake with normal spontaneity of speech fluency comprehension and affect. Face is symmetrical. Visual russo are full. Extraocular muscles are intact. There is no obvious focal arm or leg weakness. Plantars are flexor. Speech is normal. Objective Data Active Medications Acetaminophen (Acetaminophen 325 Mg Tablet) 650 mg PO Q6H PRN PRN Reason: Pain, Mild 1-3,fever,headache Last Admin: 09/20/24 07:45 Dose: 650 mg Documented By: MARIYA Albuterol Sulfate (Albuterol Sulfate 90 Mcg 8 Gm Inhaler) 2 puff INHALE RQ4H PRN PRN Reason: wheezing Amlodipine Besylate (Amlodipine Besylate 5 Mg Tablet) 5 mg PO DAILY [facility]; Protocol Last Admin: 09/20/24 08:54 Dose: 5 mg Documented By: REJI Ascorbic Acid (Ascorbic Acid 500 Mg Tablet) 500 mg PO DAILY [facility] Last Admin: 09/20/24 08:54 Dose: 500 mg Documented By: REJI Atorvastatin Calcium (Atorvastatin Calcium 20 Mg Tablet) 20 mg PO BEDTIME [facility] Last Admin: 09/19/24 20:57 Dose: 20 mg Documented By: MARIYA Ceftriaxone Sodium (Ceftriaxone Sodium 1 Gm Vial) 1 gm IVPUSH Q24H [facility] Last Admin: 09/19/24 20:57 Dose: 1 gm Documented By: MARIYA Escitalopram Oxalate (Escitalopram Oxalate 20 Mg Tablet) 20 mg PO DAILY [facility] Last Admin: 09/20/24 08:54 Dose: 20 mg Documented By: REJI Gabapentin (Gabapentin 300 Mg Capsule) 300 mg PO BID [facility] Last Admin: 09/20/24 08:54 Dose: 300 mg Documented By: REJI Labetalol HCl (Labetalol Hcl 100 Mg/20 Ml Vial) 10 mg IVPUSH Q10M PRN PRN Reason: sbp >180 Last Admin: 09/16/24 16:47 Dose: 10 mg Documented By: ANNIKA Lorazepam (Lorazepam 0.5 Mg Tablet) 0.5 mg PO DAILY PRN PRN Reason: Anxiety Lorazepam (Lorazepam 1 Mg Tablet) 1 mg PO DAILY@1800 [facility] Last Admin: 09/19/24 18:02 Dose: 1 mg Documented By: SHANNON Losartan Potassium (Losartan Potassium 50 Mg Tablet) 50 mg PO DAILY [facility]; Protocol Last Admin: 09/20/24 08:54 Dose: 50 mg Documented By: REJI Magnesium Hydroxide (Milk Of Magnesia 30 Ml Oral.Susp) 30 ml PO DAILY PRN PRN Reason: Constipation Methenamine Hippurate (Methenamine Hippurate 1 Gm Tablet) 1 gm PO DAILY [facility] Last Admin: 09/20/24 08:54 Dose: 1 gm Documented By: REJI Metoprolol Tartrate (Metoprolol Tartrate 100 Mg Tablet) 100 mg PO BID [facility]; Protocol Last Admin: 09/20/24 08:54 Dose: 100 mg Documented By: REJI Non-Formulary Medication (Umeclidinium-Vilanterol [Anoro Ellipta]) 1 each INHALE DAILY [facility] Non-Formulary Medication (Solifenacin [Vesicare]) 10 mg PO DAILY [facility] Non-Formulary Medication (Vibegron [Gemtesa]) 75 mg PO DAILY [facility] Omeprazole (Omeprazole 20 Mg Capsule.Dr) 20 mg PO DAILY@0630 [facility] Last Admin: 09/20/24 07:43 Dose: Not Given Documented By: MARIYA Non-Admin Reason: Patient Refused Phenazopyridine HCl (Phenazopyridine Hcl 100 Mg Tablet) 100 mg PO BIDWM PRN PRN Reason: dysuria Stop: 09/20/24 16:59 Last Admin: 09/19/24 21:08 Dose: 100 mg Documented By: MARIYA Sodium Chloride (0.9 % Sodium Chloride Flush 3 Ml Syringe) 3 ml IVFLUSH QSHIFT [facility] Last Admin: 09/20/24 08:56 Dose: 3 ml Documented By: REJI Labs 09/20/24 06:35 09/20/24 06:35 Labs: Laboratory Results - last 24 hr 09/20/24 06:35 MCV 81.7 MCH 28.5 MCHC 34.9 RDW 12.4 Plt Count 222 MPV 9.6 Absolute Nucleated RBC 0.000 Nucleated RBC % (auto) 0.0 Anion Gap 14 Estim Creat Clear Calc 68.7 Estimated GFR > 60 Random Glucose 103 Calcium 9.7 Microbiology Microbiology Results: Microbiology 09/16/24 17:22 Urine Culture - Preliminary Urine clean catch - Clean Catch Midstream Escherichia coli Enterococcus faecalis Assessment and Plan (1) Morbid obesity due to excess calories: Status: Acute Plan 73F PMH chronic diastolic CHF, history of CVA, moderate persistent asthma, paroxysmal AFib no longer on anticoagulation due to GI bleed, bioprosthetic aortic and mitral valve replacements, ulcerative colitis, interstitial cystitis, recurrent UTIs, PTSD, anxiety, obesity presented 09/15/24 with slurred speech and lethargy was given TNK for suspected CVA, downgraded to medical floor after 24 hours, symptoms have resolved. Dysarthria Possible TIA versus hypertensive encephalopathy, MRI negative for acute stroke Restarted blood pressure meds - increased losartan to 50mg daily, started amlodipine 5mg daily rechallenged with anticoagulation but had severe bruising so stopped Continue statin bp much better hyponatremia acute fluid restrict, monitor, improved Obesity Weight loss recommended Mood disorder Continue Ativan, Lexapro Moderate persistent asthma Continue inhalers Paroxysmal AFib not tolerating AC Continue metoprolol Recurrent UTIs Methenamine DVT prophylaxis mechanical due to bruising Full Code reason for continued hospitalization: dispo planning Quality Stroke Does the patient have a stroke diagnosis?: Yes Reason for No Anti-thrombotic by Day Two: N/A - Med Ordered VTE Prior VTE?: No VTE Risk Level:: Medical - moderate - high VTE Device Contraindication: Treatment Not Indicated VTE Drug Contraindication: N/A - Med Ordered
[2024-09-20 11:27] VITALS: BP 131/80; PULSE 58; RESP 18; TEMP 36.3; O2SAT 95
--- NOTE | 2024-09-20 15:09 | MHC.SL.SWA ---
Risk of Aspiration Due to: Neurological Condition Dysphasia Diet Status: Recommend that pt continue with CHOPPED/ADVANCED solids (NDD3) with compensatory strategies to reduce risk of aspiration. Strategies include small bites, chew well, alternate liquid/solid, avoid tough to chew foods, alternate harder to eat foods w/ puree solid, moisten food w/ sauce/gravy. Recommend 1 f/u with [facility] to review strategies and ensure toleration of diet. Liquid Consistency and Strategies for Safe Swallow: Liquid Intake Recommendation: Thin Liquid Intake Strategies: Small Sips Solid Food Consistency: Dietary Recommendations: Regular Additional Modifications to Solid Foods: Moisten w/ sauce/gravy Oral Medication Intake: Whole with Liquid Please contact the pharmacy regarding appropriate crushable or liquid drug formulations that are available whenever modified delivery is recommended. Compensatory Strategies and Precautions to be Taken for Safe Swallow: Sitting Upright (90 deg) Small Bites and Sips Alternate Liquids/Solids Rate of Ingestion Change Avoid Specific Foods Supervision While Eating and Drinking for Safe Swallow: Intermittent Supervision Foods to Avoid: hard/tough to chew foods Swallowing Recommended Treatments: Compens. Strategy Educat. 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 Patient reports having difficulty swallowing harder meats, especially beef, and regurgitation of solids. hx esophageal dysphagia. Patient is able to feed herself w/o issue. She is admitted w/ acute CVA. Pt seen for [facility] tx on this date. No aphasia or garbled speech observed during visit. Recommend that pt continue with CHOPPED/ADVANCED solids (NDD3) with compensatory strategies to reduce risk of aspiration. Strategies include small bites, chew well, alternate liquid/solid, avoid tough to chew foods, alternate harder to eat foods w/ puree solid, moisten food w/ sauce/gravy. Recommend 1 f/u with [facility] to review strategies and ensure toleration of diet. W[employer] Pot Tender Clinican/Clinical Fellow: No Supervisory Statement: I have reviewed and agree with the student/clinical fellow's documentation: N/A Speech Language Pathologist: Bekah Workman M.A., [facility]
--- NOTE | 2024-09-20 15:41 | P.F2F_ITS ---
Service Date Service Date: 09/20/24 Encounter Date of encounter: 09/20/24 Reasons for Services Signs and symptoms assessed: weakness Reason for care home: medication management, medication treatment and teach disease management Reason for physical therapy: home safety and mobility, therapeutic exercises and gait/transfer training Homebound: Leaving the home is medically contraindicated at this time without the asist of a device and/or another person due th the listed conditions above and below. Reason homebound: unsteady gait / fall risk Certification: Based on the above findings, I certify that this patient is confined to the home and needs intermittent care home care, physical therapy and/or speech therapy, or continues to need occupational therapy. The patient is under my care, and I have initiated the establishment of the plan of care. The patient will be followed by a physician who will periodically review the plan of care. Time Spent With Patient Time: Total time managing care of this patient today ____ minutes.
--- NOTE | 2024-09-20 15:45 | PM.DS ---
DS: Providers Provider Date of Service: 09/20/24 Date of admission: 09/15/24 23:29 Date of discharge: 09/20/24 Primary care physician: Negrita Bains MD Consults: 09/15/24 23:06 Consult to Neurology Routine Consulting Provider: [facility] Reason for consultation: stroke Has provider been notified: Yes DS: Diagnosis Discharge Diagnosis (1) Morbid obesity due to excess calories: Status: Acute DS: Summary Hospital Course Hospital Course: from initial hpi: 73-year-old female with history of CHF, anemia, CVA, asthma, paroxysmal AFib no anticoagulation, aortic and mitral valve replacement, GERD, ulcerative colitis, interstitial cystitis, recurrent UTIs, PTSD, anxiety? presented to the ER with lethargy and difficulty with speech first noted at 20:00. Last known well time approximately 19:00. She has no difficulty speaking or ambulating at baseline.? Of note, the pt was seen here in the emergency room yesterday complaining of generalized weakness, shortness of breath with cough, elevated blood pressure, urinary frequency, nausea, decreased appetite, headache x3 days.? She also reported an episode of blurred vision which resolved spontaneously. Workup was negative for infection and she was discharged to home. On arrival to the ED,? the patient was taken to CAT scan per stroke protocol.? Her blood pressure was ? 185/81, heart rate? 107, O2 sat 92% on room air, temp 98.3. Laboratory data significant for sodium 128, chloride 90. Imaging:? Head CT showed no acute intracranial findings.? No large vessel occlusion or significant? narrowing noted on head and neck CTA.? ED course: The pt received? a total of 20 mg labetalol.? She was given 21 mg TNK at 22:57. hospital course: Patient was admitted for dysarthria which initially was treated with CVA and given TNK monitored in the ICU for 24 hours. Symptoms completely resolved. MRI was negative for acute stroke, therefore, diagnosis is possibly TIA versus hypertensive encephalopathy. She was restarted on her blood pressure medications, losartan was increased from 25 mg to 50 mg daily and started on amlodipine 5 mg daily with improvement in blood pressure control. She was rechallenge with anticoagulation with apixaban but started to have severe bruising and had to discontinue. She was continued on statin therapy. Course complicated by hyponatremia which improved with fluid restriction. She was should continue 1.5 L fluid restriction. For obesity weight loss recommended. For mood disorder was continued on Ativan and Lexapro. For moderate persistent asthma continued on inhalers. For paroxysmal AFib not tolerating anticoagulation as mentioned, continued on metoprolol. For recurrent UTIs continued on methenamine. For acute UTI was treated with ceftriaxone and will be discharged on 5 days of amoxicillin. Patient was seen by physical therapy who recommended home with services to which patient will be discharged 1436. Time Attestation Discharge Coordination Time (in mins): 33 Quality: Safe Use of Opioids Does Pt have an Active Cancer Diagnosis on the Problem List?: No Quality: Stroke Does the patient have a stroke diagnosis?: Yes Reason for No Anti-thrombotic at DC: Contraindicated Reason for No Anticoagulant at DC: Contraindicated Reason Not Initiating IV-Tpa: N/A - Med Ordered Reason for No Anti-thrombotic by Day Two: Contraindicated Reason for No Statin at DC: N/A - Med Ordered Physical Exam Vital Signs: Vital Signs: Last Vital Signs Temp 97.3 F 09/20/24 11:27 Pulse 58 09/20/24 11:27 Resp 18 09/20/24 11:27 BP 131/80 09/20/24 11:27 Pulse Ox 95 09/20/24 11:27 O2 Del Method Room Air 09/20/24 08:00 O2 Flow Rate 1 09/16/24 16:00 BMI result Body Mass Index 36.2 DS: Data Data Completed and Pending Completed studies during hospitalization [Text1]: Procedures Control Bleeding in Gastrointestinal Tract, Via Natural or Artificial Opening Endoscopic (04/02/22) Destruction of Cecum, Via Natural or Artificial Opening Endoscopic (04/02/22) Excision of Stomach, Pylorus, Via Natural or Artificial Opening Endoscopic, Diagnostic (08/25/23) Introduction of Other Therapeutic Substance into Lower GI, Via Natural or Artificial Opening Endoscopic (04/02/22) Labs on day of discharge: Laboratory Results - last 24 hr 09/20/24 06:35 WBC 8.2 RBC 5.09 Hgb 14.5 Hct 41.6 MCV 81.7 MCH 28.5 MCHC 34.9 RDW 12.4 Plt Count 222 MPV 9.6 Absolute Nucleated RBC 0.000 Nucleated RBC % (auto) 0.0 Sodium 130 L Potassium 4.1 Chloride 95 L Carbon Dioxide 25 Anion Gap 14 BUN 12 Creatinine 0.68 Estim Creat Clear Calc 68.7 Estimated GFR > 60 Random Glucose 103 Calcium 9.7 Preliminary micro results at discharge 09/16/24 17:22 Urine Culture - Preliminary Urine clean catch - Clean Catch Midstream Escherichia coli Enterococcus faecalis 09/16/24 21:11 Blood Culture - Preliminary Blood - Venous No growth after 48 hours. 09/16/24 21:11 Blood Culture - Preliminary Blood - Venous No growth after 48 hours. Discharge Plan Discharge Anticipated Discharge Date/Time: 09/20/24 15:35 Patient Disposition: Home Health Service Discharge Diagnosis: cva vs hypertensive encephalopathy Referrals: Blake Gamino [Outside] - 1 Week Negrita Bains MD [Primary Care Provider] - 1 Week Discharge Medications: New losartan 50 mg Tablet 50 mg PO DAILY Qty: 90 0RF Protocol: Hold for SBP< HOLD for SBP < : 90 amlodipine 5 mg Tablet 5 mg PO DAILY Qty: 90 0RF Protocol: Hold for SBP< HOLD for SBP < : 90 amoxicillin 500 mg capsule 500 mg PO BID Qty: 10 0RF Continued solifenacin [Vesicare] 10 mg tablet 10 mg PO DAILY 90 Days Qty: 90 4RF simvastatin [Zocor] 40 mg tablet 40 mg PO BEDTIME Qty: 90 3RF methenamine hippurate 1 gram tablet 1 g PO DAILY Qty: 90 1RF ascorbic acid (vitamin C) 1,000 mg tablet 1 g PO DAILY 90 Days Qty: 90 1RF ferrous sulfate [Feosol] 325 mg (65 mg iron) tablet 325 mg PO BEDTIME 5RF Rx Instructions: do not give ferrous sulfate that is blue Gemtesa 75 mg tablet 75 mg PO DAILY 90 Days Qty: 90 1RF lorazepam 1 mg tablet 1 mg PO DAILY@1800 albuterol sulfate 2.5 mg /3 mL (0.083 %) solution for nebulization 1 vial inhalation Q4H PRN (Reason: wheezing) vitamin B complex Tablet 1 tab PO DAILY magnesium 250 mg Tablet 250 mg PO BEDTIME ergocalciferol (vitamin D2) 1,250 mcg (50,000 unit) Capsule 1,250 mcg PO WE@0900 Patient Comments: thursday potassium chloride 10 mEq tablet extended release 10 meq PO DAILY ciclopirox 0.77 % cream 1 appl topical DAILY PRN (Reason: Rash) Anoro Ellipta 62.5-25 mcg/actuation blister with device 1 ea INHALATION DAILY doxepin 10 mg capsule 10 mg PO BEDTIME Belsomra 5 mg tablet 5 mg PO BEDTIME PRN (Reason: sleep) lorazepam 1 mg tablet 0.5 mg PO DAILY PRN (Reason: Anxiety) naproxen 500 mg tablet 500 mg PO BID PRN (Reason: Pain) acetaminophen 500 mg Tablet 1,000 mg PO Q6H PRN (Reason: Pain) Artificial Tears (PF) 0.1-0.3 % Dropperette 1 drp OPHTHALMIC (EYE) Q4H PRN (Reason: Dry Eye(S)) PreserVision AREDS-2 250-90-40-1 mg capsule 1 tab PO BID metoprolol tartrate [Lopressor] 100 mg tablet 100 mg PO BID escitalopram oxalate [Lexapro] 20 mg tablet 20 mg PO DAILY albuterol sulfate [Ventolin HFA] 90 mcg/actuation HFA aerosol inhaler 2 puff inhalation Q4H PRN (Reason: wheezing) gabapentin 300 mg capsule 300 mg PO BID dexlansoprazole 30 mg capsule,biphase delayed releas 30 mg PO DAILY@1900 Discontinued losartan [Cozaar] 25 mg tablet 25 mg PO DAILY Discharge Orders: Discharge Order (Routine); Ordered 09/20/24 Ordered By: Rosales Nino Diet: ndd3 solids, thin liquids Activity on Discharge: As tolerated Stand Alone Forms: Patient Portal Discharge page Print Language: Albanian Other Ambulatory Orders: Basic Metabolic Panel (Routine) Timeframe: 1 Week Facility: [facility] - Location: Laboratory Ordered By: Rosales Nino Care Plan Goals: recovery Health Concerns: htn, uti Plan of Treatment: 5 days amoxil, increase losartan to 50mg daily, started amlodipine fluid restrict 1.5L per day, follow up labs in 1 week Assessment: see above
--- NOTE | 2024-09-20 15:48 | MHC.CM.PN ---
Second IMM given 09/20. Pt is medically cleared for discharge home with [facility]. Pts son Mich will transport her home today.
[2024-09-20 16:00] VITALS: BP 184/79; PULSE 56; RESP 18; TEMP 36.3; O2SAT 96
== END 2024-09-20 16:57 | disposition home health service (06) | DRG 62 ==
LOC: HO.ED 23:28 → HO.EDOVER 23:57 → HO.ICU 09-16 00:16 → HO.IMC 09-16 14:17 → HO.ICU 09-16 14:40 → HO.IMC 09-16 23:20
PROVIDERS: Internal Medicine Pulmonary Disease; Student in an Organized Health Care Education/Training Program; Admitting Provider Nurse Practitioner Family; Emergency Provider Emergency Medicine Emergency Medical Services; PCP Internal Medicine; Visit Provider Internal Medicine
DX: G45.9 Transient cerebral ischemic attack, unspecified (principal); E87.1 Hypo-osmolality and hyponatremia; I67.4 Hypertensive encephalopathy; N39.0 Urinary tract infection, site not specified; I50.32 Chronic diastolic (congestive) heart failure; J45.40 Moderate persistent asthma, uncomplicated; F39 Unspecified mood [affective] disorder; I11.0 Hypertensive heart disease with heart failure; R58 Hemorrhage, not elsewhere classified; T45.515A Adverse effect of anticoagulants, initial encounter; I48.0 Paroxysmal atrial fibrillation; R47.1 Dysarthria and anarthria; E66.9 Obesity, unspecified; Z68.36 Body mass index [BMI] 36.0-36.9, adult; Z71.6 Tobacco abuse counseling; Z95.2 Presence of prosthetic heart valve; Z87.440 Personal history of urinary (tract) infections; Z79.899 Other long term (current) drug therapy
CPT/HCPCS: 0241U; 36415; 70450; 70496; 70498; 70551; 71045; 80048; 80053; 80061; 81001; 81003; 82040; 82803; 82947; 83605; 83735; 83880; 84100; 84484; 85025; 85027; 85610; 85730; 87040; 87086; 87088; 87186; 92526; 92610; 93005; 93306; 96125; 96374; 97110; 97116; 97163; 97167; 97530; 99285; J0696; J1920; J1939; J2250; J3101; P9047; Q9967

== ENCOUNTER → 2024-09-15 21:54 | Outpatient (BNV) | payer MEDICARE, MEDICAID, SELFPAY | PROVIDERS: Admitting Provider Nurse Practitioner Family; Emergency Provider Emergency Medicine Emergency Medical Services; PCP Internal Medicine; Visit Provider Internal Medicine | DX: I45.2 Bifascicular block (principal) | CPT/HCPCS: 93010 ==

== ENCOUNTER → 2024-09-15 21:54 | Outpatient (BNV) | payer MEDICARE, MEDICAID, SELFPAY | PROVIDERS: Emergency Provider Emergency Medicine Emergency Medical Services; Visit Provider Radiology Diagnostic Radiology | DX: I77.1 Stricture of artery (principal); I65.21 Occlusion and stenosis of right carotid artery; I67.1 Cerebral aneurysm, nonruptured; R41.82 Altered mental status, unspecified | CPT/HCPCS: 70450; 70496; 70498 ==

== ENCOUNTER 2024-09-15 23:29 | Outpatient (BNV) | payer MEDICARE, MEDICAID, SELFPAY | END 2024-09-16 00:08 | PROVIDERS: Admitting Provider Nurse Practitioner Family; Emergency Provider Emergency Medicine Emergency Medical Services; PCP Internal Medicine; Visit Provider Radiology Diagnostic Radiology | DX: I72.0 Aneurysm of carotid artery (principal) | CPT/HCPCS: 70551 ==

== ENCOUNTER 2024-09-15 23:29 | Outpatient (BNV) | payer MEDICARE, MEDICAID, SELFPAY | END 2024-09-16 07:00 | PROVIDERS: Admitting Provider Nurse Practitioner Family; Emergency Provider Emergency Medicine Emergency Medical Services; PCP Internal Medicine; Visit Provider Internal Medicine | DX: Z95.2 Presence of prosthetic heart valve (principal) | CPT/HCPCS: 93306 ==

== ENCOUNTER → 2024-09-15 23:29 | Outpatient (BNV) | payer MEDICARE, MEDICAID, SELFPAY | PROVIDERS: Admitting Provider Nurse Practitioner Family; Emergency Provider Emergency Medicine Emergency Medical Services; PCP Internal Medicine; Visit Provider Psychiatry & Neurology Neurology | DX: I63.9 Cerebral infarction, unspecified (principal) | CPT/HCPCS: 99223 ==

== ENCOUNTER → 2024-09-15 23:29 | Outpatient (BNV) | payer MEDICARE, MEDICAID, SELFPAY | PROVIDERS: Admitting Provider Nurse Practitioner Family; Emergency Provider Emergency Medicine Emergency Medical Services; PCP Internal Medicine; Visit Provider Nurse Practitioner Family | DX: I63.9 Cerebral infarction, unspecified (principal); E87.1 Hypo-osmolality and hyponatremia | CPT/HCPCS: 99223 ==

== ENCOUNTER → 2024-09-15 23:29 | Outpatient (BNV) | payer MEDICARE, MEDICAID, SELFPAY | PROVIDERS: Admitting Provider Nurse Practitioner Family; Emergency Provider Emergency Medicine Emergency Medical Services; PCP Internal Medicine; Visit Provider Internal Medicine | DX: E66.01 Morbid (severe) obesity due to excess calories (principal) | CPT/HCPCS: 99232 ==

== ENCOUNTER → 2024-09-21 23:59 | Outpatient (BNV) | payer MEDICARE, MEDICAID, SELFPAY | PROVIDERS: PCP Internal Medicine; Visit Provider Internal Medicine | DX: N39.0 Urinary tract infection, site not specified (principal); F41.1 Generalized anxiety disorder; I97.0 Postcardiotomy syndrome | CPT/HCPCS: G0180 ==

== ENCOUNTER 2024-09-27 14:35 | Outpatient (AMB) | payer MEDICARE, MEDICAID, SELFPAY ==
--- NOTE | 2024-09-27 14:35 | MHC.PC.OV ---
Vital Signs 09/27/24 14:36 Height 5 ft BP 136/82 Blood Pressure Location Lt brachial Position Sitting Pulse 54 Pulse Source Pulse Oximeter Pulse Oximetry (%) 94 Oxygen Delivery Method Room Air Intake Visit Reasons: TCM Allergies adhesive [ADHESIVE] Allergy (Unknown, Verified 09/15/24 22:08) LOCAL REACTION melatonin Allergy (Verified 09/15/24 22:08) PYSCHOSIS blue dye Adverse Reaction (Verified 09/15/24 22:08) Diarrhea Medication List - Last Reconciled 09/27/24 by Negrita Bains MD acetaminophen 1,000 mg PO Q6H PRN albuterol sulfate 1 vial inhalation Q4H PRN albuterol sulfate 90 mcg/actuation (Ventolin HFA) 2 puffs inhalation Q4H PRN amlodipine 5 mg See Protocol PO DAILY amoxicillin 500 mg PO BID ascorbic acid (vitamin C) 1 g PO DAILY 90 days ciclopirox 0.77% 1 appl topical DAILY PRN dexlansoprazole 30 mg PO DAILY@1900 dextran 70-hypromellose (PF) 0.1-0.3 % (Artificial Tears (PF)) 1 drp ophthalmic (eye) Q4H PRN doxepin 10 mg PO BEDTIME ergocalciferol (vitamin D2) 1,250 mcg PO WE@0900 escitalopram oxalate (Lexapro) 20 mg PO DAILY ferrous sulfate (Feosol) 325 mg PO BEDTIME gabapentin 300 mg PO BID lorazepam 1 mg PO DAILY@1800 lorazepam 0.5 mg PO DAILY PRN losartan 50 mg See Protocol PO DAILY magnesium 250 mg PO BEDTIME methenamine hippurate 1 g PO DAILY metoprolol tartrate (Lopressor) 100 mg PO BID naproxen 500 mg PO BID PRN potassium chloride ER 10 mEq PO DAILY simvastatin (Zocor) 40 mg PO BEDTIME solifenacin (Vesicare) 10 mg PO DAILY 90 days suvorexant (Belsomra) 5 mg PO BEDTIME PRN umeclidinium-vilanterol 62.5-25 mcg/actuation (Anoro Ellipta) 1 ea inhalation DAILY vibegron (Gemtesa) 75 mg PO DAILY 90 days vit C,F-Zc-rmeuk-lutein-zeaxan 250-90-40-1 mg (PreserVision AREDS-2) 1 tab PO BID vitamin B complex 1 tab PO DAILY Tobacco use date assessed: 04/20/24 Fall risk assessment: No Falls in past year Last assessed Fall Risk: 09/27/24 Dental Screening Dental Screen Date: 09/27/24 Did you have a dental visit in the last 12 months?: No Did you have a dental problem in the last 6 months where you did not have access to dental care?: No Was dental information given to patient?: Patient declined HPI TCM HPI Details Patient is 73-year-old female came in today for hospital discharge follow-up Date of admission September 15, 2024 date of discharge September 20, 2024 [facility] Patient has a history of cardiomyopathy, chronic Congestive heart failure, anemia, previous history of CVA, asthma, paroxysmal atrial fibrillation but on no anticoagulation, aortic and mitral valve replacement, GERD, ulcerative colitis, interstitial cystitis, recurrent UTIs, PTSD, anxiety Presented to emergency room with chief complaint of lethargy and difficulty with speech Patient has no difficulty with speech or ambulating at baseline One day prior to arrival patient presented to emergency room with a chief complaint of generalized weakness, shortness a breath and cough, found to have elevated blood pressure, also complained of headache decreased appetite and episode of blurred vision, her workup was negative for infection she was evaluated and discharged home Patient have CT scan as per stroke protocol Her blood pressure was elevated on arrival to emergency room at 185/81 with heart rate of 107 oxygen saturation 92% patient was afebrile Labs showed sodium of 128 CT scan of head showed no intracranial findings acute. No large vessel occlusion or significant narrowing on head and neck CTA Patient was given labetalol 20 mg in emergency room And she was given 21 mg of TNK after consultation with Neurology She was admitted and was treated for CVA Her symptoms completely resolved MRI was negative for acute stroke She was diagnosed for possible TIA versus hypertensive encephalopathy. Her losartan was increased to 50 mg and amlodipine 5 mg was added She was challenged with apixaban but started to have severe bruising so it had to be discontinued Statin therapy to be continued She developed hyponatremia which was resolved with fluid restriction And it was recommended that she continue with 1.5 L fluid restriction at home Lexapro and Ativan was continued Inhalers continued for moderate persistent asthma Paroxysmal atrial fibrillation: No anticoagulation, continue metoprolol Methenamine to be continued She was treated for UTI with ceftriaxone and was discharged with 5 days of amoxicillin He was recommended in-home Discharge diagnosis CVA versus hypertensive encephalopathy New medications at discharge losartan 50 mg from 25 mg And amlodipine 5 mg Her other medications are VESIcare 10 mg Simvastatin 40 mg Methenamine 1 g daily Vitamin-C Iron Gemtesa 75 mg Lorazepam 1 mg Albuterol inhaler Magnesium 250 mg daily vitamin-B complex and vitamin-D Potassium chloride 10 mg Anoro Ellipta inhaler Doxepin 10 mg Belsomra 5 mg Metoprolol 100 mg b.i.d. Lexapro 20 mg Gabapentin 300 mg b.i.d. PPI Patient came in today for follow-up She is doing much better Her breathing has improved She has started taking frusemide regularly which she was avoiding before due to frequency of urination Labs will be repeated today to monitor electrolytes She is having physical therapy started this coming Thursday All questions answered to patient and her son who is here with the patient TCM TCM Information Date of Discharge 09/16/24 Discharged From [facility] Interactive Contact Date (Reference documentation from this date) 09/21/24 HPI Comments History of Present Illness Details Date of admission/discharge: September 15 to 09/20/2024 Facility: [facility] Discharge 2/current location: Home Diagnosis/procedure: TIA versus hypertensive encephalopathy New/DC medications: amlodipine 5 mg Changed medication/dozing: Losartan changed from 25 mg to 50 mg Pending labs/tests: None Call to patient: Date/time at 21:58 on 21 of September Outcome How are you feeling? Better Any pain or discomfort? Baseline Do you have any questions about your condition or discharge instructions? No Were you able to get her medications filled? Yes Do you have any questions about your medications? No Were you able to schedule your follow-up appointments? Yes If home health was ordered, have they contacted you? Yes Any outpatient services, if so, are you scheduled? Home physical therapy Are there any additional resources like transportation you might need during your recovery? No Educational needs/resources: Done What support system do you have? Son is helping [facility] Medical History Memory loss, short term Carpal tunnel syndrome on both sides Cataract CHF exacerbation History of stroke Abnormal colonoscopy (~04/03/22) Wheezing Anemia Urinary incontinence Right carpal tunnel syndrome Post cardiotomy syndrome PTSD (post-traumatic stress disorder) Osteoarthritis, hip, bilateral Interstitial cystitis Lipid disorder Insomnia Generalized anxiety disorder with panic attacks Major depression, recurrent History of ulcerative colitis Chronic GERD Diastolic congestive heart failure Paroxysmal atrial fibrillation Age related osteoporosis Asthma, moderate persistent Anticoagulant long-term use Iron deficiency anemia Establishing care with new doctor, encounter for Hypertension, essential Surgical History Hx of tonsillectomy Hx of colonoscopy Hx of rotator cuff surgery History of arthroplasty of both knees Hx of hysterectomy Status post mitral valve replacement Status post aortic valve replacement History of kyphoplasty History of artificial heart valve Family History Daughter Mental health disorder Substance use disorder Father Emphysema lung Mother Heart disease Stroke Pacemaker Arthritis Family/Other Colon cancer Sister Crohn's disease Social History Household Members: Family Household Members Other:: son Housing: House Are you a primary social worker palliative care to a significant other at home: No Do you presently have visiting nurse or other home services: No Alcohol intake: never Patient Tobacco Use Status: Former Tobacco user e-Cigarette/Vaping Use: Never Used Substance Use Type: Marijuana Advance Directives Date on File: 03/18/22 service: No Current occupational status: retired Cognitive needs: No Hearing needs: No Vision needs: Yes Questionnaire Thrive Questionnaire Date Thrive assessed: 09/16/24 AUDIT C Alcohol Use Questionnaire (AUDIT-C) 1. How often do you have a drink containing alcohol?: Never 3. How often do you have six or more drinks on one occasion?: Never Total Score: 0 Score Reviewed/Action Taken: Yes GUANACO-7 AMB Questionnaire GUANACO-7 Date GUANACO - 7 assessed: 10/30/21 Source: Developed by Drs. Marco Antonio Diaz, Janeth Streeter, Alec Gayle and colleagues, with an educational lizett from [employer]. Physical exam (Primary Care) Vital Signs: Last Vital Signs Pulse 54 09/27/24 14:36 BP 136/82 09/27/24 14:36 Pulse Ox 94 09/27/24 14:36 Oxygen Delivery Method Room Air 09/27/24 14:36 Tobacco/Smoking Status: Tobacco use Status Tobacco use date assessed 04/20/24 09/27/24 14:35 Patient Tobacco Use Status Former Tobacco user 09/27/24 14:35 e-Cigarette/Vaping Use Never Used 09/27/24 14:35 Thrive Assessment: Date of Thrive Assessment Date Thrive assessed 04/20/24 09/27/24 14:42 Coding Level of Care Code TCM High MDM <= 7 Days Diagnoses Hospital discharge follow-up Z09 TIA (transient ischemic attack) G45.9 Hypertensive encephalopathy I67.4 Recurrent UTI N39.0 Risk for falls Z91.81 Paroxysmal atrial fibrillation I48.0 Interstitial cystitis N30.10 Nephropathy N28.9 Cardiomyopathy, unspecified type I42.9 Cardiomyopathy type: unspecified Morbid obesity due to excess calories E66.01 Ulcerative colitis with complication, unspecified location K51.978 Ulcerative colitis location: unspecified ulcerative colitis location Digestive disease complication type: unspecified complication Assessment & Plan Assessment & Plan (1) Hospital discharge follow-up: Code(s): Z09 - Encounter for follow-up examination after completed treatment for conditions other than malignant neoplasm Category: Medical (2) TIA (transient ischemic attack): Code(s): G45.9 - Transient cerebral ischemic attack, unspecified Category: Medical (3) Hypertensive encephalopathy: Code(s): I67.4 - Hypertensive encephalopathy Category: Medical (4) Recurrent UTI: Code(s): N39.0 - Urinary tract infection, site not specified Category: Medical (5) Risk for falls: Code(s): Z91.81 - History of falling Category: Medical (6) Paroxysmal atrial fibrillation: Code(s): I48.0 - Paroxysmal atrial fibrillation Category: Medical (7) Interstitial cystitis: Code(s): N30.10 - Interstitial cystitis (chronic) without hematuria Category: Medical (8) Nephropathy: Code(s): N28.9 - Disorder of kidney and ureter, unspecified Category: Medical (9) Cardiomyopathy: Code(s): I42.9 - Cardiomyopathy, unspecified Category: Medical Qualifiers: Cardiomyopathy type: unspecified Qualified Code(s): I42.9 - Cardiomyopathy, unspecified (10) Morbid obesity due to excess calories: Code(s): E66.01 - Morbid (severe) obesity due to excess calories Category: Medical (11) Ulcerative colitis: Code(s): K51.90 - Ulcerative colitis, unspecified, without complications Category: Medical Qualifiers: Ulcerative colitis location: unspecified ulcerative colitis location Digestive disease complication type: unspecified complication Qualified Code(s): K51.919 - Ulcerative colitis, unspecified with unspecified complications Plan Patient is 73-year-old female came in today for hospital discharge follow-up Date of admission September 15, 2024 date of discharge September 20, 2024 [facility] Patient has a history of cardiomyopathy, chronic Congestive heart failure, anemia, previous history of CVA, asthma, paroxysmal atrial fibrillation but on no anticoagulation, aortic and mitral valve replacement, GERD, ulcerative colitis, interstitial cystitis, recurrent UTIs, PTSD, anxiety Presented to emergency room with chief complaint of lethargy and difficulty with speech Patient has no difficulty with speech or ambulating at baseline One day prior to arrival patient presented to emergency room with a chief complaint of generalized weakness, shortness a breath and cough, found to have elevated blood pressure, also complained of headache decreased appetite and episode of blurred vision, her workup was negative for infection she was evaluated and discharged home Patient have CT scan as per stroke protocol Her blood pressure was elevated on arrival to emergency room at 185/81 with heart rate of 107 oxygen saturation 92% patient was afebrile Labs showed sodium of 128 CT scan of head showed no intracranial findings acute. No large vessel occlusion or significant narrowing on head and neck CTA Patient was given labetalol 20 mg in emergency room And she was given 21 mg of TNK after consultation with Neurology She was admitted and was treated for CVA Her symptoms completely resolved MRI was negative for acute stroke She was diagnosed for possible TIA versus hypertensive encephalopathy. Her losartan was increased to 50 mg and amlodipine 5 mg was added She was challenged with apixaban but started to have severe bruising so it had to be discontinued Statin therapy to be continued She developed hyponatremia which was resolved with fluid restriction And it was recommended that she continue with 1.5 L fluid restriction at home Lexapro and Ativan was continued Inhalers continued for moderate persistent asthma Paroxysmal atrial fibrillation: No anticoagulation, continue metoprolol Methenamine to be continued She was treated for UTI with ceftriaxone and was discharged with 5 days of amoxicillin He was recommended in-home Discharge diagnosis CVA versus hypertensive encephalopathy New medications at discharge losartan 50 mg from 25 mg And amlodipine 5 mg Her other medications are VESIcare 10 mg Simvastatin 40 mg Methenamine 1 g daily Vitamin-C Iron Gemtesa 75 mg Lorazepam 1 mg Albuterol inhaler Magnesium 250 mg daily vitamin-B complex and vitamin-D Potassium chloride 10 mg Anoro Ellipta inhaler Doxepin 10 mg Belsomra 5 mg Metoprolol 100 mg b.i.d. Lexapro 20 mg Gabapentin 300 mg b.i.d. PPI Patient came in today for follow-up She is doing much better Her breathing has improved She has started taking frusemide regularly which she was avoiding before due to frequency of urination Labs will be repeated today to monitor electrolytes She is having physical therapy started this coming Thursday All questions answered to patient and her son who is here with the patient Medications: New naproxen 500 mg PO BID PRN 60 tabs 0RF Pain
[2024-09-27 14:36] VITALS: BP 136/82; PULSE 54; O2SAT 94
--- OUTSIDE RECORDS SUMMARY | 2024-09-27 15:54 | XMS_ITS | Clinical Summary ---
Author Organization Unknown Care Team Providers Care Manager Of Revenue Name Role Phone HOMERO ALANIS, MARYANNE Unavailable Unavailable SHANKAR NICHOLAS, SANTA Unavailable Unavailable Payers Payer Name Policy Type Policy Number Effective Date Expira tion Date MEDICARE - NGS [place]/ID - PD [id number] Problems Condition Name Condition Details Condition Category Status Onset Date Resolution Date Last Treatment Date Treating Clinician Comments CEREBRAL INFARCTION, UNSPECIFIED Active 09-15 00:00: 00 Allergies, Adverse Reactions, Alerts Allergy Name Allergy Type Status Severity Reaction(s) Onset Date Inactive Date Treating Clinician Comments NKA Propensity to adverse reactions Active 2024-08 12:57:3 1 Vital Signs Vital Name Observation Time Observation Value Commen ts Temperature 2024-09-21 22:36:00.000 98.4 [degF] BMI (%) 2024-09-21 22:36:00.000 36 kg/m2 Height 2024-09-21 22:36:00.000 60 [in_us] Pulse 2024-09-21 22:36:00.000 56 /min O2 Saturation (%) 2024-09-21 22:36:00.000 95 % Respirations 2024-09-21 22:36:00.000 20 /min Weight (lbs) 2024-09-21 22:36:00.000 187 [lb_av] Systolic Blood Pressure 2024-09-21 22:36:00.000 148 mm [Hg] Diastolic Blood Pressure 2024-09-21 22:36:00.000 86 mm [Hg] Plan of Treatment Planned Activity Planned Date Details Comments Future Scheduled Test SKILLED NU RSE TO EVALUATE PATIENT, IDENTIFY PRIMARY AND CO-MORBID CONDITIONS CODED PER CODING GUIDELINES, AND DEVELOP PATIENT SPECIFIC PLAN OF CARE THAT INCLUDES PATIENT GOAL FOR HOME HEALTH. [code = SKILLED NURSE TO EVALUATE PATIENT, IDENTIFY PRIMARY AND CO-MORBID CONDITIONS CODED PER CODING GUIDELINES, AND DEVELOP PATIENT SPECIFIC PLAN OF CARE THAT INCLUDES PATIENT GOAL FOR HOME HEALTH.] Future Scheduled Test SKILLED NU RSE TO PROVIDE TEACHING/REINFORCEMENT RELATED TO URINARY INCONTINENCE. [code = SKILLED NURSE TO PROVIDE TEACHING/REINFORCEMENT RELATED TO URINARY INCONTINENCE.] Future Scheduled Test SKILLED NU RSE TO ASSESS ANXIETY AND PROVIDE ASSISTANCE TO PATIENT FOR UNDERSTANDING AND MANAGEMENT OF FEELINGS. [code = SKILLED NURSE TO ASSESS ANXIETY AND PROVIDE ASSISTANCE TO PATIENT FOR UNDERSTANDING AND MANAGEMENT OF FEELINGS.] Future Scheduled Test SKILLED NU RSE MAY COLLECT URINE SAMPLE FOR URINE REAGENT STRIP TESTING AND/OR URINALYSIS WITH CS 1-3 PRN IF INDICATED FOR SIGNS AND SYMPTOMS OF UTI. IF REAGENT STRIP TEST IS POSITIVE FOR UTI, SKILLED NURSE TO TAKE URINE SAMPLE TO LAB FOR URINE CS AND REPORT RESULTS TO PHYSICIAN. [code = SKILLED NURSE MAY COLLECT URINE SAMPLE FOR URINE REAGENT STRIP TESTING AND/OR URINALYSIS WITH CS 1-3 PRN IF INDICATED FOR SIGNS AND SYMPTOMS OF UTI. IF REAGENT STRIP TEST IS POSITIVE FOR UTI, SKILLED NURSE TO TAKE URINE SAMPLE TO LAB FOR URINE CS AND REPORT RESULTS TO PHYSICIAN.] Future Scheduled Test SKILLED NU RSE FOR O/A AND TEACHING RELATED TO BREAST CANCER/NEOPLASM INCLUDING SIGNS AND SYMPTOMS OF DISEASE PROGRESSION, TREATMENT, AND MANAGEMENT OF POTENTIAL SIDE EFFECTS. [code = SKILLED NURSE FOR O/A AND TEACHING RELATED TO BREAST CANCER/NEOPLASM INCLUDING SIGNS AND SYMPTOMS OF DISEASE PROGRESSION, TREATMENT, AND MANAGEMENT OF POTENTIAL SIDE EFFECTS.] Future Scheduled Test SKILLED NU RSE FOR O/A, TEACHING RELATED TO ULCERATIVE COLITIS FOR EARLY IDENTIFICATION OF EXACERBATION OF DISEASE PROCESS. [code = SKILLED NURSE FOR O/A, TEACHING RELATED TO ULCERATIVE COLITIS FOR EARLY IDENTIFICATION OF EXACERBATION OF DISEASE PROCESS.] Future Scheduled Test PHYSICAL T HERAPIST TO EVALUATE PATIENT FOR STRENGTH AND GAIT TRAINING [code = PHYSICAL THERAPIST TO EVALUATE PATIENT FOR STRENGTH AND GAIT TRAINING ] Future Scheduled Test SKILLED NU RSE TO INSTRUCT PATIENT/CAREGIVER ON SIGNS AND SYMPTOMS, RISK FACTORS, COMPLICATIONS, AND MANAGEMENT OF ATRIAL FIBRILLATION. [code = SKILLED NURSE TO INSTRUCT PATIENT/CAREGIVER ON SIGNS AND SYMPTOMS, RISK FACTORS, COMPLICATIONS, AND MANAGEMENT OF ATRIAL FIBRILLATION.] Future Scheduled Test SKILLED NU RSE TO PROVIDE TEACHING ON SIGNS AND SYMPTOMS AND MANAGEMENT OF HYPERTENSION. [code = SKILLED NURSE TO PROVIDE TEACHING ON SIGNS AND SYMPTOMS AND MANAGEMENT OF HYPERTENSION.] Future Scheduled Test SKILLED NU RSE FOR O/A, TEACHING AND SELF-MANAGEMENT RELATED TO HEART FAILURE. INSTRUCT PATIENT/CAREGIVER ON SIGNS AND SYMPTOMS OF EXACERBATION TO REPORT AND IMPORTANCE OF OBTAINING AND RECORDING DAILY WEIGHT AND/OR MEASUREMENTS. SN OR TRAINED PATIENT/CAREGIVER TO OBTAIN WEIGHT DAILY AND WEIGHT GAIN OF 2 LBS OVERNIGHT OR 5 LBS IN 1 WEEK TO BE REPORTED TO PHYSICIAN/PROVIDER. IF UNABLE TO WEIGH PATIENT, SN OR TRAINED PATIENT/CAREGIVER TO OBTAIN MEASUREMENT OF CALF IN CM DAILY AND REPORT AN INCREASE OF 2 CM TO PHYSICIAN/PROVIDER. [code = SKILLED NURSE FOR O/A, TEACHING AND SELF-MANAGEMENT RELATED TO HEART FAILURE. INSTRUCT PATIENT/CAREGIVER ON SIGNS AND SYMPTOMS OF EXACERBATION TO REPORT AND IMPORTANCE OF OBTAINING AND RECORDING DAILY WEIGHT AND/OR MEASUREMENTS. SN OR TRAINED PATIENT/CAREGIVER TO OBTAIN WEIGHT DAILY AND WEIGHT GAIN OF 2 LBS OVERNIGHT OR 5 LBS IN 1 WEEK TO BE REPORTED TO PHYSICIAN/PROVIDER. IF UNABLE TO WEIGH PATIENT, SN OR TRAINED PATIENT/CAREGIVER TO OBTAIN MEASUREMENT OF CALF IN CM DAILY AND REPORT AN INCREASE OF 2 CM TO PHYSICIAN/PROVIDER.] Future Scheduled Test SKILLED NU RSE TO INSTRUCT PATIENT/CAREGIVER ON WARNING SIGNS OF CVA, RISK FACTORS, AND METHODS TO MANAGE MCFP EFFECTS OF CVA. [code = SKILLED NURSE TO INSTRUCT PATIENT/CAREGIVER ON WARNING SIGNS OF CVA, RISK FACTORS, AND METHODS TO MANAGE MCFP EFFECTS OF CVA.] Future Scheduled Test SKILLED NU RSE FOR O/A AND SKILLED TEACHING RELATED TO SIGNS AND SYMPTOMS AND MANAGEMENT OF ANEMIA. [code = SKILLED NURSE FOR O/A AND SKILLED TEACHING RELATED TO SIGNS AND SYMPTOMS AND MANAGEMENT OF ANEMIA.] Future Scheduled Test SKILLED NU RSE FOR O/A, TEACHING RELATED TO LIVER CIRRHOSIS FOR EARLY IDENTIFICATION OF EXACERBATION OF DISEASE PROCESS. [code = SKILLED NURSE FOR O/A, TEACHING RELATED TO LIVER CIRRHOSIS FOR EARLY IDENTIFICATION OF EXACERBATION OF DISEASE PROCESS.] Future Scheduled Test PATIENT FRY S A RISK OF HOSPITALIZATION AND ED USE. SKILLED NURSE TO ESTABLISH SUPPORT MEASURES TO MINIMIZE RISK OF HOSPITALIZATION AND ED USE, AND INSTRUCT PATIENT/CAREGIVER ON METHODS TO REDUCE AVOIDABLE HOSPITALIZATION AND ED USE. [code = PATIENT HAS A RISK OF HOSPITALIZATION AND ED USE. SKILLED NURSE TO ESTABLISH SUPPORT MEASURES TO MINIMIZE RISK OF HOSPITALIZATION AND ED USE, AND INSTRUCT PATIENT/CAREGIVER ON METHODS TO REDUCE AVOIDABLE HOSPITALIZATION AND ED USE.] Future Scheduled Test SKILLED NU RSE TO PROVIDE INSTRUCTION TO PATIENT/CAREGIVER RELATED TO DISCHARGE PLANNING. [code = SKILLED NURSE TO PROVIDE INSTRUCTION TO PATIENT/CAREGIVER RELATED TO DISCHARGE PLANNING.] Future Scheduled Test SKILLED NU RSE TO PERFORM ENVIRONMENTAL SAFETY RISK ASSESSMENT AND FALL RISK ASSESSMENT AND PROVIDE INSTRUCTION TO IMPLEMENT ENVIRONMENTAL SAFETY AND FALL PREVENTION STRATEGIES THROUGHOUT THE CERTIFICATION PERIOD. SKILLED NURSE WILL MAINTAIN SITUATIONAL AWARENESS AND WILL NOTIFY CLINICAL HONING MACHINE SET UP OPERATOR AND PHYSICIAN/PROVIDER WITH ANY CHANGE IN CONDITION. [code = SKILLED NURSE TO PERFORM ENVIRONMENTAL SAFETY RISK ASSESSMENT AND FALL RISK ASSESSMENT AND PROVIDE INSTRUCTION TO IMPLEMENT ENVIRONMENTAL SAFETY AND FALL PREVENTION STRATEGIES THROUGHOUT THE CERTIFICATION PERIOD. SKILLED NURSE WILL MAINTAIN SITUATIONAL AWARENESS AND WILL NOTIFY CLINICAL HONING MACHINE SET UP OPERATOR AND PHYSICIAN/PROVIDER WITH ANY CHANGE IN CONDITION.] Future Scheduled Test SKILLED NU RSE FOR OBSERVATION AND ASSESSMENT OF PATIENTS PAIN LEVEL AND EFFECTIVENESS OF PAIN MANAGEMENT REGIMEN. SKILLED NURSE TO INSTRUCT PATIENT/CAREGIVER REGARDING PHARMACOLOGIC AND NON-PHARMACOLOGIC PAIN CONTROL MEASURES. SKILLED NURSE TO REPORT TO PHYSICIAN IF PAIN IS UNCONTROLLED WITH CURRENT PAIN MANAGEMENT REGIMEN. [code = SKILLED NURSE FOR OBSERVATION AND ASSESSMENT OF PATIENTS PAIN LEVEL AND EFFECTIVENESS OF PAIN MANAGEMENT REGIMEN. SKILLED NURSE TO INSTRUCT PATIENT/CAREGIVER REGARDING PHARMACOLOGIC AND NON-PHARMACOLOGIC PAIN CONTROL MEASURES. SKILLED NURSE TO REPORT TO PHYSICIAN IF PAIN IS UNCONTROLLED WITH CURRENT PAIN MANAGEMENT REGIMEN.] Future Scheduled Test SKILLED NU RSE TO ASSESS PATIENT'S SKIN INTEGRITY AND INSTRUCT PATIENT/CAREGIVER ON MEASURES TO PREVENT PRESSURE ULCERS. [code = SKILLED NURSE TO ASSESS PATIENT'S SKIN INTEGRITY AND INSTRUCT PATIENT/CAREGIVER ON MEASURES TO PREVENT PRESSURE ULCERS.] Future Scheduled Test SKILLED NU RSE TO REVIEW PATIENT MEDICATIONS (PRESCRIPTION/OTC). INSTRUCT PATIENT/CAREGIVER ON ALL MEDICATIONS INCLUDING PURPOSE, WHEN TO TAKE, IMPORTANCE OF MEDICATION ADHERENCE, MONITORING OF EFFECTIVENESS, ADVERSE DRUG REACTIONS, POSSIBLE SIDE EFFECTS, AND WHEN TO NOTIFY AGENCY OR PHYSICIAN/PROVIDER OF ANY CONCERNS. [code = SKILLED NURSE TO REVIEW PATIENT MEDICATIONS (PRESCRIPTION/OTC). INSTRUCT PATIENT/CAREGIVER ON ALL MEDICATIONS INCLUDING PURPOSE, WHEN TO TAKE, IMPORTANCE OF MEDICATION ADHERENCE, MONITORING OF EFFECTIVENESS, ADVERSE DRUG REACTIONS, POSSIBLE SIDE EFFECTS, AND WHEN TO NOTIFY AGENCY OR PHYSICIAN/PROVIDER OF ANY CONCERNS.] Goal Patient Goal - WALK BETTER Goal Provider Goal - A PLAN OF CARE WILL BE ESTABLISHED THAT MEETS PATIENT'S MCFP NEEDS AND INCLUDES PATIENT GOAL FOR HOME HEALTH. Goal Provider Goal - PATIENT / CAREGIVER WILL VERBALIZE UNDERSTANDING OF EFFECTS OF URINARY INCONTINENCE BY THE END OF THE CERTIFICATION PERIOD. Goal Provider Goal - SYMPTOMS OF ANXIETY ARE IDENTIFIED AND INTERVENTIONS INITIATED TO ENABLE PATIENT TO UNDERSTAND AND MANAGE FEELINGS THROUGHOUT EPISODE. Goal Provider Goal - URINE SPECIMEN WILL BE OBTAINED PRN FOR SIGNS AND SYMPTOMS OF UTI AND RESULTS WILL BE REPORTED TO PHYSICIAN THROUGHOUT THE CERTIFICATION PERIOD. Goal Provider Goal - PATIENT/CAREGIVER WILL VERBALIZE/DEMONSTRATE MANAGEMENT OF CANCER/NEOPLASM DISEASE AND THE SIDE EFFECTS OF TREATMENTS DURING THIS EPISODE. Goal Provider Goal - EXACERBATIONS OF GASTROINTESTINAL DISEASE WILL BE PROMPTLY IDENTIFIED AND INTERVENTIONS IMPLEMENTED TO MINIMIZE RISKS TO PATIENT BY END OF EPISODE. Goal Provider Goal - A PHYSICAL THERAPY EVALUATION TO BE COMPLETED WITH RECOMMENDATIONS AND/OR WRITTEN PLAN OF TREATMENT ESTABLISHED FOR PHYSICIANS SIGNATURE. Goal Provider Goal - PATIENT/CAREGIVER WILL VERBALIZE UNDERSTANDING OF SIGNS AND SYMPTOMS, COMPLICATIONS, AND MANAGEMENT OF ATRIAL FIBRILLATION THROUGHOUT THE CERTIFICATION PERIOD. Goal Provider Goal - PATIENT/CAREGIVER WILL VERBALIZE SIGNS AND SYMPTOMS OF HYPERTENSION AND WILL BE ABLE TO DEMONSTRATE ABILITY TO MANAGE EXACERBATION BY END OF THE EPISODE. Goal Provider Goal - PATIENT/CAREGIVER WILL VERBALIZE/DEMONSTRATE KNOWLEDGE AND MANAGEMENT OF HEART FAILURE DISEASE PROCESS BY END OF EPISODE. Goal Provider Goal - PATIENT/CAREGIVER WILL DEMONSTRATE COMPLIANCE WITH TREATMENT REGIME AND VERBALIZE SIGNS AND SYMPTOMS TO REPORT WELL POSSIBLE COMPLICATIONS OF CVA BY END OF EPISODE. Goal Provider Goal - PATIENT/CARGIVER WILL VERBALIZE UNDERSTANDING OF ANEMIA INCLUDING SIGNS AND SYMPTOMS, MANAGEMENT OF COMPLICATIONS, AND PRESCRIBED TREATMENT REGIMEN BY END OF EPISODE. Goal Provider Goal - EXACERBATIONS OF LIVER/PANCREATIC DISEASE WILL BE PROMPTLY IDENTIFIED AND INTERVENTIONS IMPLEMENTED TO MINIZMIZE RISKS TO PATIENT BY END OF THE EPISODE. Goal Provider Goal - PATIENT WILL HAVE SUPPORT MEASURES ESTABLISHED TO PREVENT HOSPITALIZATION AND ED USE AND PATIENT/CAREGIVER WILL VERBALIZE/DEMONSTRATE METHODS TO REDUCE AVOIDABLE HOSPITALIZATION AND ED USE BY END OF EPISODE. Goal Provider Goal - PATIENT/CAREGIVER WILL VERBALIZE UNDERSTANDING OF DISCHARGE PLANNING INSTRUCTIONS BY DATE OF DISCHARGE. Goal Provider Goal - PATIENT/CAREGIVER WILL VERBALIZE/DEMONSTRATE EFFECTIVE ENVIRONMENTAL SAFETY AND FALL PREVENTION STRATEGIES, WILL REMAIN SAFE IN THE COMMUNITY, AND WILL BE FREE OF DANGER TO SELF AND OTHERS THROUGHOUT THE CERTIFICATION PERIOD. Goal Provider Goal - PATIENT/CAREGIVER WILL DEMONSTRATE UNDERSTANDING OF PHARMACOLOGIC AND NONPHARMACOLOGIC PAIN CONTROL MEASURES AND PATIENT WILL HAVE IMPROVEMENT IN PAIN INTERFERING WITH ACTIVITY EVIDENCED BY PAIN CONTROLLED AT LEVEL THAT IS ACCEPTABLE TO THE PATIENT BY END OF CERTIFICATION PERIOD. Goal Provider Goal - PATIENT/CAREGIVER WILL VERBALIZE UNDERSTANDING OF PRESSURE ULCER PREVENTION BY END OF THE EPISODE. Goal Provider Goal - PATIENT/CAREGIVER WILL VERBALIZE UNDERSTANDING OF EDUCATION PROVIDED ON MEDICATIONS BY THE END OF THE CERTIFICATION PERIOD. Progress Notes Progress Notes <paragraph>[Visit Date: 2024 by ALEX POND RN]:</paragraph><paragraph>SEE C NOTE</paragraph> Encounters Start Date/Time End Date/Time Encounter Type Admission Type Attending [facility] Care [facility] Care Department Encounter ID Discharge Date Discharge Status Discharge Condition Discharge Reason Percent Goals Met 2024-09-21 00:00:00 2024-11-19 00:00:00 Outpatient NEW ADMISSION [facility] [id number] 80.00
--- OUTSIDE RECORDS SUMMARY | 2024-09-27 15:54 | XMS_ITS | Encounter Summary ---
Author Organization [facility] [place] [address] Care Team Providers Care Lead Vulcanizing Operator Name Role Phone Negrita Bains MD Primary Care Provider [phone] Reason for Visit * Reason Onset Date Comments Med Refill 09/20/2024 Hospital Follow-up 09/20/2024 Hospital foll ow up Encounter Details Date Type Department Care Team ([facility] st Contact Info) Description 09/20/2024 Telephone [facility] [address] [facility] [address] [place] [id number] Smitha Carroll PA [address] [facility] [address] [place] [address] Med Refill; Hospital Follow-up (Hospital follow up ) Social History Tobacco Use Types Packs/Day Years Used Date Smoking Tobacco: Former Passive Smoke Exposure: Never Smokeless Tobacco: Never Alcohol Use Standard Drinks/Week Comments No 0 (1 standard drink = 0.6 oz pur e alcohol) Comments Unknown Sex and Gender Information Value Date Recorded Sex Assigned at Not on file Legal Sex Female 7:28 PM EST Gender Identity Not on file Sexual Orientation Not on file documented as of this encounter Progress Notes * Kita Tyler - 09/22/2024 9:10 AM EDT Spoke with the patients son and scheduled for 09/28/24 with Mich Montiel. * Kita Tyler - 09/21/2024 1:08 PM EDT Good afternoon, please retreive the records from her stay at [facility], thank you. * Miranda Osei - 09/21/2024 11:56 AM EDT Pts son Mich recio , Yaneth was discharged from [facility] yesterday . He would like a call back for a Hospital follow up . She will need a Thursday, Thursday or Slade * Mich Montiel NP - 09/20/2024 1:28 PM EDT Noted thank you * Gemma Hurd MA - 09/20/2024 12:48 PM EDT LINNETTE, Spoke with pts son Mich. She's presently in [facility]. She was originally there for SOB, SBP 225/111 and UTI. Her son states she was not taking her diuretic. They had removed 15 lbs of fluid on her fist hosp stay. Once she was stable , she was d/c home and ended up [facility] complains, [id number] time around she was found to have a minor stroke. Her son its waiting to see if she'll be d/c home or rehab. He will call back with update once she's discharged. * Rosmery Simon - 09/20/2024 10:11 AM EDT Pharmacy called for refill for Torsemide 20 mg one tablet daily for 90 day supply. documented in this encounter Plan of Treatment Upcoming Encounters Date Type Department Care Team (Late st Contact Info) Description 09/29/2024 12:40 PM EDT Office Visit [facility] [address] [facility] [address] [place] [phone] Mich Montiel NP [address] [place] [address] 12/14/2024 3:45 PM EDT Office Visit [facility] [address] [facility] [address] [place] [phone] Rosa M Ellsworth MD [address] [facility] [address] [place] [address] 12/28/2024 1:40 PM EDT Office Visit [facility] [address] [facility] [address] [place] [phone] Ivone Coyle NP [address] [facility] [address] [place] [address] Scheduled Procedures Name Priority Associated Diagnoses Date/Ti me LOOP RECORDER INSERTION Atrial fibrillation, unspecified type (CMS/HCC V24, CMS/HCC V28) documented as of this encounter Visit Diagnoses Not on filedocumented in this encounter Care Teams Lead Vulcanizing Operator Relationship Specialty Start Date End Date Negrita Bains MD [address] [facility] [place] [phone] PCP - General Internal Medicine 08/01/24 documented as of this encounter
--- OUTSIDE RECORDS SUMMARY | 2024-09-27 15:54 | XMS_ITS | Clinical Summary ---
Author Organization [address] [place] [address] [place] [phone] Phone Care Team Providers Care Dry Curer Name Role Phone Negrita Bains MD Primary Care Provider [phone] Allergies Active Allergy Reactions Criticality Noted Date [...] Active Problems Problem Noted Date Diagnosed Date CVA (cerebral vascular accident) ([facility] V24, [place]/[facility] V28) 09/27/2024 Asthma 10/14/2022 Back pain 10/14/2022 Chronic interstitial cystitis 10/14/2022 Osteoporosis 10/14/2022 Pleural effusion, right 10/14/2022 Post-pericardiotomy syndrome 10/14/2022 Posttraumatic stress disorder 10/14/2022 Sacroiliitis ([facility] V24) 10/14/2022 Overview (04/12/2024): Last Assessment [...] can follow-up with us afterwards. Severe obesity ([facility] V24, [facility] V28) 2022 Ulcerative colitis ([facility] V24, [facility] V28) (HFpEF) heart failure with p reserved ejection fraction ([facility] V24, [facility] V28) 06/17/2022 Overview (08/30/2024): Assessment & Plan (08/30/2024 11:21 PM EDT): Euvolemic on exam on current diuretic therapy. Continue current torsemide dosing. However, she has had no blood work done in over 6 months. - Order basic blood work to update medical records. - Send results to primary care physician for review. Wedge fracture of thoracic v ertebra ([facility] V24, [facility] V28) 01/24/2021 Atrial fibrillation ([facility] V24, [facility] V28) 0 11/19/2020 Overview (08/30/2024): previously anticoagulated with Coumadin but has had complications of severe hematuria in the past; is very uncertain based on our lack of access to [facility] records how much A-fib she truly has -Admitted at [facility] in August 2019 for for both GI [...] continue baby aspirin. - Request results from [facility]. - Will try to communicate with Dr. [...] mild prosthetic aortic stenosis. Echocardiogram done at [facility]. - Request results from [facility]. Hypertension 08/16/2020 Overview (04/12/2024): Last Assessment & [...] repeat her echocardiogram. Fracture of thoracic spine ([facility] V24, [facility] V28) 05/26/2018 Osteoarthritis of knee 04/12/2018 Gastroesophageal reflux disease without esophagi tis 04/12/2018 Resolved Problems Problem Noted Date Diagnosed Date Resolved Date Chronic diastolic heart fail ure ([facility] V24, [facility] V28) 10/14/2022 08/30/2024 Congestive heart failure ([facility] V24, [facility] V28) 11/15/2020 08/30/2024 Overview (04/12/2024): Congestive [...] Encounters Date Type Department Care Team Description 09/20/2024 Telephone [facility] [place] [facility] - [facility] [address] [facility] 154 [place] [phone] Smitha Carroll PA Med Refill; Hospital Follow-up (Hospital follow up ) 09/01/2024 2:30 PM EDT Office Visit Neurosurgery [facility] 175 [facility] [address] [place] [address] Michael Sweet PA Sacroiliitis ([facility] V24) (Primary Dx) 08/30/2024 1:11 PM EDT - 08/30/2024 11:59 PM EDT Hospital Encounter [id number] [place] [address] Chronic obstructive pulmonary disease, unspecified COPD type (CMS/HCC V24, CMS/HCC V28) Discharge Disposition: Home or Self Care 08/30/2024 Telephone [facility] - [facility] [address] [facility] [address] [place] [phone] Madeline Machuca MD 08/26/2024 2:00 PM EDT [facility] 175 [facility] [address] [place] [address] Rosa M Ellsworth MD Chronic obstructive pulmonary disease, unspecified COPD type (CMS/HCC V24, CMS/HCC V28) (Primary Dx); Chronic heart failure with preserved ejection fraction (CMS/HCC V24, CMS/HCC V28); Pleural effusion, right; Hypoxemia 08/25/2024 Telephone [facility] 175 [facility] [address] [place] [address] Misty Narvaez MA 08/04/2024 Telephone [facility] [place] [facility] - [address] [place] [address] Negrita Bains MD Medical Records 08/03/2024 1:00 PM EDT Office Visit [facility] [place] [facility] - [address] [place] [address] Madeline Machuca MD Atrial fibrillation, unspecified type (CMS/HCC V24, CMS/HCC V28) (Primary Dx); Chronic heart failure with preserved ejection fraction (CMS/HCC V24, CMS/HCC V28); Hx of aortic valve replacement; H/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; Primary hypertension 07/19/2024 Telephone [facility] Cardiology [place] [facility] - [address] [place] [address] Ivone Coyle NP Med Refill [...] Macular degeneration Anemia Congestive heart failure (CHF) ([facility] V24, [facility] V28) Ulcerative colitis ([facility] V24, [facility] V28) Asthma Back pain Anxiety Depression Hypertension High cholesterol Interstitial cystitis Arthritis Osteoporosis Achilles tendonitis Bursitis shoulder/hip/sheryl ls Hiatal hernia Diastasis recti Diverticulosis Hx of thyroid nodule GERD (gastroesophageal reflux disease) Family History Medical History Relation Name Comments [...] Description 09/29/2024 12:40 PM EDT Office Visit [facility] - [facility] [address] [facility] 154 [place] [phone] Mich Montiel NP [address] [place], [place] [id number] 12/14/2024 3:45 PM EDT Office Visit Pulmonolgy - [address] [place] [phone] Rosa M Ellsworth MD 175 [facility] 200 [place] [address] 12/28/2024 1:40 PM EDT Office Visit [facility] - [facility] 102 300 [facility] 102 [place] [phone] Ivone Coyle, ABIGAIL [address] [facility] 154 [place] [address] Scheduled Procedures Name Priority Associated Diagnoses Date/Ti me LOOP RECORDER INSERTION Atrial fibrillation, unspecified type ([facility] V24, [facility] V28) Health Maintenance Due Date Last Done [...] EDT) Anatomical Region Laterality Modality Body Radiographic Ajnana ging 08/30/2024 2:48 PM EDT Narrative 08/30/2024 [...] Signed Date: 08/30/2024 14:50 ET Workstation ID: [id number] Transcribed By: Self Edit Transcribed Date: 08/30/2024 [...] Signed Date: 08/30/2024 14:50 ET Workstation ID: [id number] Transcribed By: Self Edit Transcribed Date: 08/30/2024 14:48 ET us Rosa M Ellsworth MD IMG XR PROCEDURES Final Result * ECG 12 lead (08/03/2024 1:06 PM EDT) Ventricular Rate ECG 55 BPM GEMUSE Atrial Rate 55 BPM GEMUSE P-R Interval 156 ms GEMUSE QRS Duration 164 ms GEMUSE Q-T Interval 504 ms GEMUSE QTc 482 ms GEMUSE P Wave [place] 79 degrees GEMUSE R [place] -56 degrees GEMUSE T [place] -34 degrees GEMUSE ECG Interpretation Sinus bradycardia [...] * Annual BMP Blood Test (02/26/2023) Pathologist [facility] Annual BMP Blood Test abstracted Historical Provider HEALTH MAINTENANCE Final Result * Lipid panel (06/26/2021) [facility] LDL/HDL Ratio 2 0 - 4 Triglycerides 146 0 - 150 mg/dL Cholesterol 123 0 - 200 mg/dL HDL 53 >=40 mg/dL LDL Cholesterol 41 0 - 100 mg/dL Blood Venous blood specimen / Unknown Result [facility] Historical Provider LAB BLOOD ORDERABLES Alba l Result from Last 3 Months or Most Recently Relevant to Health Maintenance Insurance MEDICAID - [place] MEDICARE Advance Directives Documents on File Type Date Recorded Patient Roll Slicing Machine Tender Expl [facility] Health Care Decision (hx) 02/12/2023 DANIEL SANTAMARIA DIRECTIVE Care Teams Dry Curer Relationship Specialty Start Date End Date Negrita Bains MD [address] [place] [address] PCP - General Internal Medicine 08/01/24
== END 2024-09-27 15:39 | disposition home or self-care (01) ==
LOC: HO.HMCC 14:42
PROVIDERS: PCP Internal Medicine; Visit Provider Internal Medicine
DX: I48.0 Paroxysmal atrial fibrillation (principal); I42.9 Cardiomyopathy, unspecified; E66.01 Morbid (severe) obesity due to excess calories; K51.919 Ulcerative colitis, unspecified with unspecified complications; Z09 Encounter for follow-up examination after completed treatment for conditions other than malignant neoplasm; G45.9 Transient cerebral ischemic attack, unspecified; I67.4 Hypertensive encephalopathy; N39.0 Urinary tract infection, site not specified; Z91.81 History of falling; N30.10 Interstitial cystitis (chronic) without hematuria; N28.9 Disorder of kidney and ureter, unspecified

== ENCOUNTER 2024-09-27 14:35 | Outpatient (REF) | payer MEDICARE, MEDICAID, SELFPAY ==
--- OUTSIDE RECORDS SUMMARY | 2024-09-27 16:17 | XMS_ITS | Encounter Summary ---
Author Organization [facility] [place] [address] Care Team Providers Care Special Delivery Messenger Name Role Phone Negrita Bains MD Primary Care Provider [phone] Reason for Visit * Reason Onset Date Comments Med Refill 09/20/2024 Hospital Follow-up 09/20/2024 Hospital foll ow up Encounter Details Date Type Department Care Team ([facility] st Contact Info) Description 09/20/2024 Telephone [facility] - [facility] [address] [facility] 154 [place] [phone] Smitha Carroll PA 300 [facility] [address] [place] [address] Med Refill; Hospital Follow-up (Hospital follow up [...] retreive the records from her stay at [facility], thank you. * Miranda Osei - 09/21/2024 11:56 AM EDT Pts son Mich recio , Yaneth was discharged from [facility] yesterday . He would like a call back for a Hospital follow up . She will need a Thursday, Thursday or Slade * Mich Montiel NP - 09/20/2024 1:28 PM EDT Noted thank you * Gemma Hurd MA - 09/20/2024 12:48 PM EDT LINNETTE, Spoke with pts son Mich. She's presently in [facility]. She was originally there for SOB, SBP 225/111 and UTI. Her son states she was not taking her diuretic. They had removed 15 lbs of fluid on her fist hosp stay. Once she was stable , she was d/c home and ended up going back to [facility] for same complains, [id number] time around she was found to have [...] Description 09/29/2024 12:40 PM EDT Office Visit [facility] Cardiology [facility] - [facility] [address] [facility] 154 [place] [phone] Mich Montiel NP 300 [place] [address] 12/14/2024 3:45 PM EDT Office Visit Pul[facility]ol[facility] 175 [facility] [address] [place] [phone] Rosa M Ellsworth MD 175 [facility] 200 [place] [address] 12/28/2024 1:40 PM EDT Office Visit [facility] - [facility] 102 300 [facility] 102 [place] [phone] Ivone Coyle NP 300 [facility] [address] [place] [address] Scheduled Procedures Name Priority Associated Diagnoses Date/Ti me LOOP RECORDER INSERTION Atrial fibrillation, unspecified type (CMS/HCC V24, CMS/HCC V28) documented as of this encounter Visit Diagnoses Not on filedocumented in this encounter Care Teams Special Delivery Messenger Relationship Specialty Start Date End Date Negrita Bains MD 262 [facility] [place] [phone] PCP - General Internal Medicine 08/01/24 documented as of this encounter
--- OUTSIDE RECORDS SUMMARY | 2024-09-27 16:18 | XMS_ITS | Clinical Summary ---
Author Organization [address] [place] [address] [place] [phone] Phone Care Team Providers Care Crossing Guard Name Role Phone Negrita Bains MD Primary Care Provider [phone] Allergies Active Allergy Reactions Criticality Noted Date [...] Date Diagnosed Date CVA (cerebral vascular accident) ([facility] V24, C [facility] V28) 09/27/2024 Asthma 10/14/2022 Back pain 10/14/2022 Chronic interstitial cystitis 10/14/2022 Osteoporosis 10/14/2022 Pleural effusion, right 10/14/2022 Post-pericardiotomy syndrome 10/14/2022 Posttraumatic stress disorder 10/14/2022 Sacroiliitis ([facility] V24) 10/14/2022 Overview (04/12/2024): Last [...] can follow-up with us afterwards. Severe obesity ([facility] V24, [facility] V28) 2022 Ulcerative colitis ([facility] V24[facility] V28) (HFpEF) heart failure with p reserved ejection fraction ([facility] V24, [facility] V28) 06/17/2022 Overview (08/30/2024): Assessment & Plan (08/30/2024 11:21 PM EDT): Euvolemic on exam on current diuretic therapy. Continue current torsemide dosing. However, she has had no blood work done in over 6 months. - Order basic blood work to update medical records. - Send results to primary care physician for review. Wedge fracture of thoracic v ertebra ([facility] V24, [facility] V28) 01/24/2021 Atrial fibrillation ([facility] V24, [facility] V28) 0 11/19/2020 Overview (08/30/2024): previously anticoagulated with Coumadin but has had complications of severe hematuria in the past; is very uncertain based on our lack of access to [facility] records how much A-fib she truly has -Admitted at [facility] in August 2019 for for both [...] continue baby aspirin. - Request results from [facility]. - Will try to communicate with [...] mild prosthetic aortic stenosis. Echocardiogram done at [facility]. - Request results from [facility]. Hypertension 08/16/2020 Overview (04/12/2024): Last Assessment [...] repeat her echocardiogram. Fracture of thoracic spine ([facility] V24, [facility] V28) 05/26/2018 Osteoarthritis of knee 04/12/2018 Gastroesophageal reflux disease without esophagi tis 04/12/2018 Resolved Problems Problem Noted Date Diagnosed Date Resolved Date Chronic diastolic heart fail ure ([facility] V24, [facility] V28) 10/14/2022 08/30/2024 Congestive heart failure ([facility] V24, [facility] V28) 11/15/2020 08/30/2024 Overview (04/12/2024): [...] Type Department Care Team Description 09/20/2024 Telephone [facility] Cardiology [facility] - [facility] [address] [facility] 154 [place] [phone] Smitha Carroll PA Med Refill; Hospital Follow-up (Hospital follow up ) 09/01/2024 2:30 PM EDT [facility] 175 [facility] 300 [place] [address] Michael Sweet PA Sacroiliitis ([facility] V24) (Primary Dx) 08/30/2024 1:11 PM EDT - 08/30/2024 11:59 PM EDT Hospital Encounter [address] [place] [address] Chronic obstructive pulmonary disease, unspecified COPD type (CMS/HCC V24, CMS/HCC V28) Discharge Disposition: Home or Self Care 08/30/2024 Telephone [facility] - [facility] [address] [facility] 154 [place] [address] Madeline Machuca MD 08/26/2024 2:00 PM EDT [facility] 175 [facility] 200 [place] [phone] Rosa M Ellsworth MD Chronic obstructive pulmonary disease, unspecified COPD type (CMS/HCC V24, CMS/HCC V28) (Primary Dx); Chronic heart failure with preserved ejection fraction (CMS/HCC V24, CMS/HCC V28); Pleural effusion, right; Hypoxemia 08/25/2024 Telephone [facility] 175 [facility] 300 [place] [address] Misty Narvaez MA 08/04/2024 Telephone [facility] Cardiology [facility] - [address] [place] [phone] Negrita Bains MD Medical Records 08/03/2024 1:00 PM EDT Office Visit [facility] Cardiology [facility] - [address] [place] [address] Madeline Machuca MD Atrial fibrillation, unspecified type (CMS/HCC V24, CMS/HCC V28) (Primary Dx); Chronic heart failure with preserved ejection fraction (CMS/HCC V24, CMS/HCC V28); Hx of aortic valve replacement; H/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; Primary hypertension 07/19/2024 Telephone [facility] Cardiology [facility] - [address] [place] [address] Ivone Coyle NP Med Refill [...] Macular degeneration Anemia Congestive heart failure (CHF) ([facility] V24, [facility] V28) Ulcerative colitis ([facility] V24, [facility] V28) Asthma Back pain Anxiety [...] Description 09/29/2024 12:40 PM EDT Office Visit [facility] - [facility] [address] [facility] [address] [place] [phone] Mich Montiel NP [address] [place], [place] [phone] 12/14/2024 3:45 PM EDT Office Visit Pulmonolgy - [address] [place] [phone] Rosa M Ellsworth MD 175 [facility] 200 [place] [address] 12/28/2024 1:40 PM EDT Office Visit [facility] - [facility] [address] 300 [facility] 102 [place] [phone] Ivone Coyle, ABIGAIL [address] [facility] 154 [place] [address] Scheduled Procedures Name Priority Associated Diagnoses Date/Ti me LOOP RECORDER INSERTION Atrial fibrillation, unspecified type ([facility] V24, [facility] V28) Health Maintenance Due Date Last Done [...] Signed Date: 08/30/2024 14:50 ET Workstation ID: [id number] Transcribed By: Self Edit Transcribed Date: 08/30/2024 [...] Signed Date: 08/30/2024 14:50 ET Workstation ID: [id number] Transcribed By: Self Edit Transcribed Date: 08/30/2024 14:48 ET us Rosa M Ellsworth MD IMG XR PROCEDURES Final Result * ECG 12 lead (08/03/2024 1:06 PM EDT) Ventricular Rate ECG 55 BPM GEMUSE Atrial Rate 55 BPM GEMUSE P-R Interval 156 ms GEMUSE QRS Duration 164 ms GEMUSE Q-T Interval 504 ms GEMUSE QTc 482 ms GEMUSE P Wave [place] 79 degrees GEMUSE R [place] -56 degrees GEMUSE T [place] -34 degrees GEMUSE ECG Interpretation Sinus bradycardia [...] * Annual BMP Blood Test (02/26/2023) Pathologist [facility] Annual BMP Blood Test abstracted Historical Provider HEALTH MAINTENANCE Final Result * Lipid panel (06/26/2021) [facility] [address] [facility] LDL/HDL Ratio 2 0 - 4 Triglycerides 146 0 - 150 mg/dL Cholesterol 123 0 - 200 mg/dL HDL 53 >=40 mg/dL LDL Cholesterol 41 0 - 100 mg/dL Blood Venous blood specimen / Unknown Result 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
--- OUTSIDE RECORDS SUMMARY | 2024-09-27 16:18 | XMS_ITS | Data Portability ---
Author Organization [place] - [facility], Allergy Address [address] [place] [id number] Care Team Providers Care Salmon Gillnet Vessel Operator Name Role Phone MARYANNE VALENTIN Primary Care Provider Assessment Encounter Date Assessment Date Assessment LastModified by Organization Details LastModified Time 09/06/2024 09/06/2024 Audiometric testing today continues to show bilateral hearing loss which should be amenable to amplification. I have given her a copy of her audiogram, medical clearance for amplification and the names of a couple of local audiologists who can program [employer] devices. [email or web address] Not available 09/06/2024 15:10:47 Plan of Treatment [...] Details Recorded Time Postmasto idectomy complicat ion 21311171 Active 2023 Other disorders following mastoidec ioana, left ear; Note: Date Diagnosed : 06/10/2023 1:36 PM (H95.192) Not Available [employer] 02:30:20 Impacted cerumen of bilateral ears [id number] 15907 Active 2021 Impacted cerumen, bilateral ; Note: Changed from H61.22 to H61.23 ( 4 1:42 PM) , Date Diagnosed : 11/05/2021 3:17 PM (H61.22) Not Available 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 4 02:30:22 Sensorine ural hearing loss in right ear 86014134016 100 Active 2018 Sensorine ural hearing loss, unilatera l, right ear, with restricte d hearing on the contralat eral side; Note: Date Diagnosed : 12/08/2018 2:17 PM (H90.A21) Not Available [facility] 4 02:30:18 Severe obesity 56913494346 104 Active 2023 Morbid (severe) obesity due to excess calories; Note: Date Diagnosed : 08/03/2023 2:28 PM (E66.01) Not Available [facility] 4 02:30:13 Asthma 177206708 Active 2023 Other asthma; Note: Date Diagnosed : 08/03/2023 2:25 PM (J45.998) Not Available [facility] 4 02:30:20 Dysphonia 01111613 Active 2023 Hoarsenes s; Note: Date Diagnosed : 08/03/2023 2:25 PM (R49.0) Not Available [facility] 4 02:30:25 Dysphagia 29025714 Active 2023 Dysphagia , pharyngoe sophageal phase; Note: Date Diagnosed : 08/03/2023 2:25 PM (R13.14) Not Available [facility] 4 02:30:29 Problem Notes None recorded. Procedures Surgical History Date Name Laterality Status Provider Name and Address Organization Details Recorded Time Air & Speech Audio with Tymps - 25980, 98455 & 33306 completed CARSON ALCALA [address] [facility],[place] [address], [place], [address], [facility] 09/06/2024 15:23:19 Debridement of Mastoid Cavity left completed ALBERTO FAJARDO MD [address] [facility],[place] [address], [place], [address], [facility] 09/06/2024 15:08:30 Imaging Results Imaging Date Name Status LastModified by [facility] Details LastModified Time 09/07/2024 audiogram completed BARCODE Information no t available 09/07/2024 11:12:34 Procedure Notes None recorded. Medical Equipment None Reported. Allergies Allergen ID Allergen Name Allergen Category Reaction Reaction Severity Criticality Documentation Date Start Date Code Code System Note Provider Name and Address Organization Details Recorded Time 230305 adhesive tape environme nt,medica tion Not available Not available Not available 09/06/2024 05919 UNK Cris moses [facility] 14:49:32 Medications Name Sig Start Date Stop Date Status Note LastModified by Organization Details LastModified Time furosemid e 40 mg tablet 06/10 completed Medicati on ID: [id number] B rand Name: furosemi de Send Method: E-Prescr ibed Sub s Allowed: subs OK Medic ationGen ericName : furosemi de Not Available Not Available Not Available torsemide 20 mg tablet active Medicati on ID: [id number] B rand Name: torsemid e Send Method: E-Prescr ibed Sub s Allowed: subs OK Speci al Instruct ion: TAKE ONE TABLET BY MOUTH EVERY DAY Medi cationGe nericNam e: torsemid e Not Available Not Available Not Available tizanidin e 2 mg tablet 06/10 completed Medicati on ID: [id number] B rand Name: tizanidi ne Send Method: E-Prescr ibed Sub s Allowed: subs OK Medic ationGen ericName : tizanidi ne Not Available Not Available Not Available cetirizin e 10 mg tablet TAKE ONE TABLET BY MOUTH EVERY DAY NEEDED FOR ALLERGY SYMPTOMS 09/06 completed Not Available Not Available Not [...] mg tablet 06/10 completed Medicati on ID: [id number] B rand Name: quetiapi ne Send Method: E-Prescr ibed Sub s Allowed: subs OK Medic ationGen ericName : quetiapi ne Not Available Not Available Not Available potassium chloride ER 10 mEq tablet,ex tended release TAKE ONE TABLET BY MOUTH EVERY DAY active Not Available Not Available No t Available trimethop rim 100 mg tablet 06/10 completed Medicati on ID: 446964 B rand Name: trimetho prim Sen d [...] eye drops 09/06 completed Medicati on ID: [id number] D uration Value: 14 Prescri bed By [...] mg tablet 06/10 completed Medicati on ID: [id number] B rand Name: tramadol Send Method: E-Prescr [...] dental solution 09/06 completed Medicati on ID: 693105 B rand Name: PreviDen t Send Method: [...] mg capsule 06/10 completed Medicati on ID: 093671 B rand Name: nitrofur antoin macrocry stal [...] mg tablet 06/10 completed Medicati on ID: 056159 B rand Name: mirtazap ine Send Method: [...] mg tablet 06/10 completed Medicati on ID: 042828 B rand Name: zolpidem Send Method: E-Prescr ibed Sub s Allowed: subs OK Medic ationGen ericName : zolpidem Not Available Not Available Not Available Vitamin D2 1,250 mcg (50,000 unit) capsule 2018 active Medicati on ID: 667584 B rand Name: Vitamin D2 Send Method: [...] mg tablet 06/10 completed Medicati on ID: 090239 B rand Name: Jantoven Send Method: E-Prescr ibed Sub s Allowed: subs OK Speci al Instruct ion: TAKE 1-2 TABLETS BY MOUTH DAILY DIRECTED BY [facility] Med Kenney Potts me: Jantoven Not Available Not Available Not Available escitalop krathikeyan 5 mg tablet TAKE ONE TABLET BY [...] delayed release 06/10 completed Medicati on ID: 037223 B rand Name: Dexilant Send Method: E-Prescr ibed Sub s Allowed: subs OK Medic ationGen ericName : Dexilant Not Available Not Available Not Available Myrbetriq 25 mg tablet,ex tended release active Medicati on ID: 244240 B rand Name: Myrbetri q Send Method: E-Prescr ibed Sub s Allowed: subs OK Medic ationGen ericName : Myrbetri q Not Available Not Available Not Available Eliquis 5 mg tablet TAKE ONE TABLET BY MOUTH TWICE A DAY 09/06 completed Not Available Not Available Not Available Breo Ellipta 100 mcg-25 mcg/dose powder for inhalatio n 09/06 completed Medicati on ID: 896456 B rand Name: Breo Ellipta Send Method: [...] SNOMED-CT Code Diagnosis ICD10 Code Diagnosis Note [id number] ALBERTO FAJARDO MD [facility] [address] [address] 09/06/2024 14:30:24 09/06/2024 15:27:53 Postmastoidectomy complication [id number] H95.192 Left canal wall down mastoidect anh was debrided of accumulate d squamous debris. No signs of acute or chronic inflammati on. No signs of prosthesis dislodgmen t or other mobile anomalies. Follow-up in 1 year for next mastoid debridemen t Mixed cond uctive and sensorineural hearing loss of left ear [id number] 9107 H90.A32 Sensorineu ral hearing loss in right ear 8435249902 9100 H90.A21 Right Ear:Modera tely-sever e SNHL with good speech discrimina tion.Type A tympanogra m.Left Ear:Modera te to severe MHL with good speech discrimina tion.Type B tympanogra m. [id number] CARSON ALCALA [facility] [address] [address] 09/06/2024 15:15:11 09/12/2024 11:27:39 Mixed conductive and sensorineural hearing loss of left ear 5607555763 9107 H90.A32 Sensorineu ral hearing loss in right ear 6517039012 9100 H90.A21 Right Ear:Modera tely-sever e SNHL [...] ID Guarantor Name 09/06/2024 1 MEDICARE B-[place]: [facility] Yaneth Rodriguez [id number] Yaneth Rodriguez 09/06/2024 2 [place]ID-[place] [facility] Yaneth Rodriguez [id number] Yaneth Daviserson 09/06/2024 1 MEDICARE B-[place]: [facility] [employer] [facility] Yaneth Daviserson [id number] Yaneth Daviserson 09/06/2024 2 [place] [facility] Yaneth Gusman Rodriguez [id number] Yaneth Uzma Michael Notes Date Note Type Note Provider Name and Address Organization Details Recorded Time 09/06/2024 text/html Patient with left-sided canal wall down mastoidectomy cavity comes in for mastoid debridement. Patient has hearing loss amenable to amplification. At her last visit she told me that she was gifted a pair of Sofiya hearing aids. I recommended she meet with a local recreational director to have the hearing aids adjusted to match her hearing aids. She lost this paperwork and wants to have her hearing test updated so that she can have the hearing aids adjusted. No recent pain or discharge. She feels like something is knocking around in there in the left ear. ALBERTO FAJARDO MD [address] [place] [address], [phone], [facility] - [facility] 09/06/2024 16:02:07 OBGyn Episode No OBEpisode recorded.
--- OUTSIDE RECORDS SUMMARY | 2024-09-27 16:18 | XMS_ITS | Encounter Summary ---
Author Organization [facility] Address [address] [place] [address] Care Team Providers Care Health Physicist Name Role Phone Negrita Bains MD Primary Care Provider [phone] Encounter Details Date Type Department Care Team (Late st Contact Info) Description 08/30/2024 Telephone [facility] [address] [facility] [address] [place] [address] Madeline Espinosa MD [address] [place] [address] Social History Tobacco Use Types Packs/Day Years [...] Hey did we ever get notes from [facility] about recent hospitalizations? Also, can we get most recent notes from her neurologist Dr Knight. Also, can we remind her to get labs drawn? I've reordered labs-may need to be faxed to her lab of choice. documented in this encounter Plan of Treatment Upcoming Encounters Date Type Department Care Team (Late st Contact Info) Description 09/29/2024 12:40 PM EDT Office Visit [facility] [address] [facility] [address] [place] [address] Mich Montiel NP [address] [place] [address] 12/14/2024 3:45 PM EDT Office Visit [facility] [address] [facility] [address] [place] [phone] Rosa M Ellsworth MD [address] [facility] [address] [place] [address] 12/28/2024 1:40 PM EDT Office Visit [facility] [address] [place] [phone] Ivone Coyle NP [address] [facility] [address] [place] [address] Scheduled Orders Name Type Priority Associated Diagnoses Orde r Schedule Basic metabolic panel Lab Routine Paroxysmal atrial fibrillation (CMS/HCC V24, CMS/HCC V28) 1 Occurrences starting 08/30/2024 until 08/30/2025 CBC and differential Lab Routine Paroxysmal atrial fibrillation ([facility] [place], [facility] V28) 1 Occurrences starting 08/30/2024 until 08/30/2025 Prothrombin time with INR Lab Routine Paroxysmal atrial fibrillation ([facility] [place]24, [facility] V28) 1 Occurrences starting 08/30/2024 until 08/30/2025 Scheduled Procedures Name Priority Associated Diagnoses Date/Ti me LOOP RECORDER INSERTION Atrial fibrillation, unspecified type ([facility] [place]24, [facility] V28) documented as of this encounter Visit Diagnoses Diagnosis Paroxysmal atrial fibrillation ([facility] [place]24, [facility] V28)- Primary Atrial fibrillation documented in this encounter Care Teams Health Physicist Relationship Specialty Start Date End Date Negrita Bains MD [address] [place] [address] PCP - General Internal Medicine 08/01/24 documented as of this encounter
[2024-09-27 16:25] LABS: Anion Gap 13 (12-20); Blood Urea Nitrogen 24 mg/dL (9-16); Calcium 9.1 mg/dL (8.4-10.2); Carbon Dioxide 25 mmol/L (22-29); Chloride 103 mmol/L (96-108); Estimated Glomerular Filt Rate > 60; Glucose Random 111 mg/dL (60-115); Sodium 136 mmol/L (135-145)
== END 2024-09-27 14:36 | disposition home or self-care (01) ==
LOC: HO.HMGCLDS 14:35
PROVIDERS: Internal Medicine; PCP Internal Medicine; Visit Provider Internal Medicine
DX: Z09 Encounter for follow-up examination after completed treatment for conditions other than malignant neoplasm (principal); G45.9 Transient cerebral ischemic attack, unspecified; I67.4 Hypertensive encephalopathy; I48.0 Paroxysmal atrial fibrillation; N30.10 Interstitial cystitis (chronic) without hematuria; N28.9 Disorder of kidney and ureter, unspecified; I42.9 Cardiomyopathy, unspecified; E66.01 Morbid (severe) obesity due to excess calories; K51.919 Ulcerative colitis, unspecified with unspecified complications; Z79.899 Other long term (current) drug therapy; Z91.81 History of falling; E87.1 Hypo-osmolality and hyponatremia
CPT/HCPCS: 36415; 80048; 99496

== ENCOUNTER 2024-10-11 13:12 | Outpatient (AMB) | payer MEDICARE, MEDICAID, SELFPAY ==
--- NOTE | 2024-10-11 13:32 | A.OFFVIS_ITS ---
Intake Visit Reasons: 3m followup Intake Note: Patient presents today for follow up on: interstitial cystitis, incontinence, recurrent uti Urology Medications: Vitamin C, Methenamine, Vesicare, Gemtesa Blood Thinner: none Allergies to Antibiotic: No Known Allergies PVR: 43ml's Gin Clerk Required: No Accompanied by: Self / Same As Patient Allergies adhesive [ADHESIVE] Allergy (Unknown, Verified 10/11/24 21:54) LOCAL REACTION melatonin Allergy (Verified 10/11/24 21:54) PYSCHOSIS blue dye Adverse Reaction (Verified 10/11/24 21:54) Diarrhea Medication List - Last Reconciled 10/11/24 by NELI Pedroza- acetaminophen 1,000 mg PO Q6H PRN albuterol sulfate 1 vial inhalation Q4H PRN albuterol sulfate 90 mcg/actuation (Ventolin HFA) 2 puffs inhalation Q4H PRN amlodipine 5 mg See Protocol PO DAILY ascorbic acid (vitamin C) 1 g PO DAILY 90 days dexlansoprazole 30 mg PO DAILY@1900 dextran 70-hypromellose (PF) 0.1-0.3 % (Artificial Tears (PF)) 1 drp ophthalmic (eye) Q4H PRN doxepin 10 mg PO BEDTIME ergocalciferol (vitamin D2) 1,250 mcg PO WE@0900 escitalopram oxalate (Lexapro) 20 mg PO DAILY ferrous sulfate (Feosol) 325 mg PO BEDTIME gabapentin 300 mg PO BID lidocaine 5% 1 patch topical DAILY lorazepam 1 mg PO DAILY@1800 lorazepam 0.5 mg PO DAILY PRN losartan 50 mg See Protocol PO DAILY magnesium 250 mg PO BEDTIME methenamine hippurate 1 g PO DAILY metoprolol tartrate (Lopressor) 100 mg PO BID naproxen 500 mg PO BID PRN potassium chloride ER 10 mEq PO DAILY simvastatin (Zocor) 40 mg PO BEDTIME solifenacin (Vesicare) 10 mg PO DAILY 90 days umeclidinium-vilanterol 62.5-25 mcg/actuation (Anoro Ellipta) 1 ea inhalation DAILY vibegron (Gemtesa) 75 mg PO DAILY 90 days vit C,Z-Pw-bmhkk-lutein-zeaxan 250-90-40-1 mg (PreserVision AREDS-2) 1 tab PO BID vitamin B complex 1 tab PO DAILY HPI Comments Details: Yaneth is a pleasant 73-year-old female patient of Dr. Bains who was accompanied by her son Mich at today's office visit. She has a past medical history of?diastolic CHF, iron deficiency anemia, asthma, PAF, ulcerative colitis, depression, macular degeneration, bioprosthetic aortic and mitral valve replacement on anticoagulation. She presents to the office today for follow-up of her ongoing lower urinary tract symptoms, interstitial cystitis, mixed urinary incontinence, and hematuria. In discussion with the patient today she discusses her recent admission to [facility] last month for hypertension, TIA, and a urinary tract infection. She reports having been treated with IV antibiotics for her urinary tract infection. In review of patient's chart it appears urine culture 09/16 E coli and Enterococcus faecalis. She reports compliance with Gemtesa, methenamine, and vitamin-C as prescribed however she does report noncompliance with Estrace cream. She discusses feeling significantly improved since her discharge from the hospital. She does note increased episodes of urinary frequency over the last few days. In office urinalysis results reviewed with the patient today. 1+ leukocytes negative nitrates. We did discussed the importance of avoiding bladder triggers and irritants given her longstanding history of interstitial cystitis. We discussed importance of compliance with Estrace cream. She will restart. We discussed further treatment options of interstitial cystitis to include rescue solutions verses low-dose Cialis for bladder stability. She will continue with current regimen at this time. She otherwise denies flank pain, fever, and or chills. Previous workup has included a microgen 10/15 noting Streptococcus anginosus, finegoldia magna, propionimcrobium lymphophilum, actinotignum schaalii, escherichia coli, anaerococcus prevotii, Enterococcus faecalis, Citrobacter freundii, intestinibacter bartlettii, peptoniphilus lacrimalis, gleimia europaea, corynebacterium sp, prevotella bivia, and Leana glabrata. Also a cystoscopy under sedation with Dr. Arreguin 04/16 noting diffuse mucosal erythema consistent with chronic cystitis. [facility] Medical History Memory loss, short term Carpal tunnel syndrome on both sides Cataract CHF exacerbation History of stroke Abnormal colonoscopy (~04/03/22) Wheezing Anemia Urinary incontinence Right carpal tunnel syndrome Post cardiotomy syndrome PTSD (post-traumatic stress disorder) Osteoarthritis, hip, bilateral Interstitial cystitis Lipid disorder Insomnia Generalized anxiety disorder with panic attacks Major depression, recurrent History of ulcerative colitis Chronic GERD Diastolic congestive heart failure Paroxysmal atrial fibrillation Age related osteoporosis Asthma, moderate persistent Anticoagulant long-term use Iron deficiency anemia Establishing care with new doctor, encounter for Hypertension, essential Surgical History Hx of tonsillectomy Hx of colonoscopy Hx of rotator cuff surgery History of arthroplasty of both knees Hx of hysterectomy Status post mitral valve replacement Status post aortic valve replacement History of kyphoplasty History of artificial heart valve Family History Daughter Mental health disorder Substance use disorder Father Emphysema lung Mother Heart disease Stroke Pacemaker Arthritis Family/Other Colon cancer Sister Crohn's disease Social History Household Members: Family Household Members Other:: son Housing: House Are you a primary family day care provider to a significant other at home: No Do you presently have visiting nurse or other home services: No Alcohol intake: never Patient Tobacco Use Status: Former Tobacco user e-Cigarette/Vaping Use: Never Used Substance Use Type: Marijuana Advance Directives Date on File: 03/18/22 service: No Current occupational status: retired Cognitive needs: No Hearing needs: No Vision needs: Yes Review of Systems Const Reports as per HPI Eyes Reports as per HPI ENT Details: Patient reports she is hard of hearing/deaf Card Reports as per HPI Resp Reports no additional complaints GI Reports as per HPI Reports as per HPI Musc Reports muscle weakness Neuro Details: forgetful Reports as per HPI Psych Reports anxiety and Reports depression Endo Reports no additional complaints Blayne/Lymph Reports as per HPI Physical Exam Const General: cooperative, comfortable, no acute distress, well developed, alert and awake Nutritional Appearance: overweight Orientation/consciousness: patient oriented x3 Limitations: wheelchair HEENT Head: Yes normal to inspection, Yes normocephalic and Yes atraumatic Ears: hearing grossly normal bilaterally Eyes General: appearance normal, both eyes and all related structures Neck Neck: Yes normal visual inspection and Yes trachea midline Chest Chest palpation & inspection: normal inspection of the chest Resp Effort & Inspection: normal respiratory effort and able to speak in complete sentences Cardio Rate: regular rate GI Inspection: Yes normal to inspection General: Yes no CVA tenderness Back/Spine/Pelvis Back: no CVA tenderness Skin General skin exam: no rashes or lesions noted Neuro General: patient oriented x3 Extrem General: Yes normal to inspection Psych Appearance: grossly normal and well kempt Mental Status: mental status grossly normal Speech and movement: Normal speech and movement present and Clear speech present Affect: normal affect Attitude: cooperative Thought process: Normal thought process present Thought content: Normal thought content present Insight: Fair insight present (Psych) Judgement: Fair judgement present (Psych) Office Procedures Post Void Residual Post Residual Void Post Void Residual (PVR): 43 [id number] Void Residual by ultrasound Results AMB Urinalysis, Automated UA Leukoctes 70 Aleisha/uL Last Edit by [place] on 10/11/24 14:21 UA Nitrite Last Edit by [place] on 10/11/24 14:21 UA Urobilinogen 0.2 mg/dL Last Edit by [place] on 10/11/24 14:21 UA Protein 15 mg/dL Last Edit by [place] on 10/11/24 14:21 UA pH 6.0 Last Edit by [place] on 10/11/24 14:21 UA Blood 0 Negrito/uL Last Edit by [place] on 10/11/24 14:21 UA Specific [place] 1.015 Last Edit by [place] on 10/11/24 14:21 UA Ketone Last Edit by [place] on 10/11/24 14:21 UA Bilirubin 0 mg/dL Last Edit by [place] on 10/11/24 14:21 UA Glucose 0 mg/dL Last Edit by [place] on 10/11/24 14:21 Results Reviewed Results Reviewed: Laboratory Last Values Urine pH (Auto) 6.0 10/11/24 14:16 Specific [place] (Auto) 1.015 10/11/24 14:16 Urine Protein (Auto) 15 mg/dL 10/11/24 14:16 Glucose (UA)(Auto) 0 mg/dL 10/11/24 14:16 Urine Blood (Auto) 0 Negrito/uL 10/11/24 14:16 Urine Bilirubin (Auto) 0 mg/dL 10/11/24 14:16 Urine Urobilinogen (Auto) 0.2 mg/dL 10/11/24 14:16 Leukocyte Esterase (Auto) 70 Aleisha/uL 10/11/24 14:16 Assessment & Plan Assessment & Plan (1) Incontinence: Code(s): R32 - Unspecified urinary incontinence Category: Medical (2) Urinary tract infection: Code(s): N39.0 - Urinary tract infection, site not specified Category: Medical Qualifiers: Urinary tract infection type: acute cystitis Hematuria presence: without hematuria Qualified Code(s): N30.00 - Acute cystitis without hematuria (3) Frequency of urination: Code(s): R35.0 - Frequency of micturition Category: Medical (4) Recurrent urinary tract infection: Code(s): N39.0 - Urinary tract infection, site not specified Category: Medical (5) Interstitial cystitis: Code(s): N30.10 - Interstitial cystitis (chronic) without hematuria Category: Medical Plan In office urinalysis results reviewed with the patient today; as noted above. PVR 43 mL. We discussed bladder triggers/irritants. Restart Estrace cream as discussed and prescribed. Continue Gemtesa, methenamine, and vitamin-C as prescribed. We discussed importance of adequate hydration relation to lower urinary tract symptoms as well as overall health and well-being. Previous hospital records were reviewed. We discussed further treatment options of interstitial cystitis to include bladder instillations as well as trial of low-dose Cialis for bladder instability. Follow-up in 3 months with PVR; or sooner with any issues, concerns, and or questions. Orders: Orders AMB Post Void Residual by ultrasound Today R32 - Unspecified urinary incontinence AMB Urinalysis Automated Today Z13.9 - Encounter for screening, unspecified Patient Instructions: The patient had an opportunity to ask questions regarding the treatment plan. All questions were answered. Physical exam, labs, and imaging were discussed and reviewed in detail. As well as risks, benefits, and discussion of treatment choices. No major barriers to understanding were identified. The patient expressed understanding and agreement with the above treatment plan. The patient was made aware they should contact our office by phone for worsening of their current condition, the appearance of new symptoms, or with any questions or concerns. Compliance is encouraged with any medications and follow up testing that is ordered. It is a privilege to be allowed the opportunity to participate in? your urological care.? Again, if you have any questions or concerns If you have any questions or concerns please do not hesitate to contact me. The office is [phone]. This note is constructed using voice recognition software. While every effort has been made to ensure accuracy steam tender errors may have been included. Yours sincerely, ROSEMARIE Pedroza Coding Level of Care Code Est Pt Level 4 (20260) Complex EM visit Add On G2211 Diagnoses Incontinence R32 Acute cystitis without hematuria N30.00 Urinary tract infection type: acute cystitis Hematuria presence: without hematuria Frequency of urination R35.0 Recurrent urinary tract infection N39.0 Interstitial cystitis N30.10 CPT Codes Post Residual Void - PVR CPT Code: 75598-Ciqh Void Residual by ultrasound ([id number]) Time Spent (min) 40
--- OUTSIDE RECORDS SUMMARY | 2024-10-11 14:17 | XMS_ITS | Data Portability ---
Author Organization [place] - [facility], Allergy Address [address] [place] [id number] Care Team Providers Care Public Events Facilities Rental Manager Name Role Phone MARYANNE VALENTIN Primary Care Provider Assessment Encounter Date Assessment Date Assessment LastModified by Organization Details LastModified Time 09/06/2024 09/06/2024 Audiometric testing today continues to show bilateral hearing loss which should be amenable to amplification. I have given her a copy of her audiogram, medical clearance for amplification and the names of a couple of local audiologists who can program [employer] devices. Not available 09/06/2024 15:10:47 Plan of Treatment [...] Details Recorded Time Postmasto idectomy complicat ion 36392734 Active 2023 Other disorders following mastoidec ioana, left ear; Note: Date Diagnosed : 06/10/2023 1:36 PM (H95.192) Not Available [employer] 02:30:20 Impacted cerumen of bilateral ears 63507960427 81879 Active 2021 Impacted cerumen, bilateral ; Note: Changed from H61.22 to H61.23 ( 4 1:42 PM) , Date Diagnosed : 11/05/2021 3:17 PM (H61.22) Not Available [facility] 4 02:30:29 Mixed conductiv e and sensorine ural hearing loss of left ear 17562039381 107 Active 2018 Mixed conductiv e and sensorine ural hearing loss, unilatera l, left ear with restricte d hearing on the contralat eral side; Note: Date Diagnosed : 12/08/2018 2:17 PM (H90.A32) Not Available [facility] 4 02:30:22 Sensorine ural hearing loss in right ear 35663021877 100 Active 2018 Sensorine ural hearing loss, unilatera l, right ear, with restricte d hearing on the contralat eral side; Note: Date Diagnosed : 12/08/2018 2:17 PM (H90.A21) Not Available [facility] 4 02:30:18 Severe obesity 89756296662 104 Active 2023 Morbid (severe) obesity due to excess calories; Note: Date Diagnosed : 08/03/2023 2:28 PM (E66.01) Not Available [facility] 4 02:30:13 Asthma 528775011 Active 2023 Other asthma; Note: Date Diagnosed : 08/03/2023 2:25 PM (J45.998) Not Available [facility] 4 02:30:20 Dysphonia 80662780 Active 2023 Hoarsenes s; Note: Date Diagnosed : 08/03/2023 2:25 PM (R49.0) Not Available [facility] 4 02:30:25 Dysphagia 40684768 Active 2023 Dysphagia , pharyngoe sophageal phase; Note: Date Diagnosed : 08/03/2023 2:25 PM (R13.14) Not Available [facility] 4 02:30:29 Problem Notes None recorded. Procedures Surgical History Date Name Laterality Status Provider Name and Address Organization Details Recorded Time Air & Speech Audio with Tymps - 19624, 95783 & 08731 completed CARSON ALCALA [address] [facility],[place] [address], [place], [address], [facility] 09/06/2024 15:23:19 Debridement of Mastoid Cavity left completed ALBERTO FAJARDO MD [address] [facility],[place] [address], [place], [address], [facility] 09/06/2024 15:08:30 Imaging Results Imaging Date Name Status LastModified by [facility]iz [facility] Details LastModified Time 09/07/2024 audiogram completed BARCODE Information no t available 09/07/2024 11:12:34 Procedure Notes None recorded. Medical Equipment None Reported. Allergies Allergen ID Allergen Name Allergen Category Reaction Reaction Severity Criticality Documentation Date Start Date Code Code System Note Provider Name and Address Organization Details Recorded Time 691870 adhesive tape environme nt,medica tion Not available Not available Not available 09/06/2024 18687 UNK [facility] 14:49:32 Medications Name Sig Start Date Stop Date Status Note LastModified by Organization Details LastModified Time furosemid e 40 mg tablet 06/10 completed Medicati on ID: [id number] B rand Name: furosemi de Send Method: E-Prescr ibed Sub s Allowed: subs OK Medic ationGen ericName : furosemi de Not Available Not Available Not Available torsemide 20 mg tablet active Medicati on ID: 476134 B rand Name: torsemid e Send Method: E-Prescr ibed Sub s Allowed: subs OK Speci al Instruct ion: TAKE ONE TABLET BY MOUTH EVERY DAY Medi cationGe nericNam e: torsemid e Not Available Not Available Not Available tizanidin e 2 mg tablet 06/10 completed Medicati on ID: [id number] B rand Name: tizanidi ne Send Method: [...] mg tablet 06/10 completed Medicati on ID: 103815 B rand Name: quetiapi ne Send Method: E-Prescr ibed Sub s Allowed: subs OK Medic ationGen ericName : quetiapi ne Not Available Not Available Not Available potassium chloride ER 10 mEq tablet,ex tended release TAKE ONE TABLET BY MOUTH EVERY DAY active Not Available Not Available No t Available trimethop rim 100 mg tablet 06/10 completed Medicati on ID: 226812 B rand Name: trimetho prim Sen d [...] eye drops 09/06 completed Medicati on ID: 103552 D uration Value: 14 Prescri bed By [...] mg tablet 06/10 completed Medicati on ID: 725767 B rand Name: tramadol Send Method: E-Prescr [...] dental solution 09/06 completed Medicati on ID: [id number] B rand Name: PreviDen t Send Method: [...] mg capsule 06/10 completed Medicati on ID: 407874 B rand Name: nitrofur antoin macrocry stal [...] mg tablet 06/10 completed Medicati on ID: 658857 B rand Name: mirtazap ine Send Method: [...] mg tablet 06/10 completed Medicati on ID: 093453 B rand Name: zolpidem Send Method: E-Prescr ibed Sub s Allowed: subs OK Medic ationGen ericName : zolpidem Not Available Not Available Not Available Vitamin D2 1,250 mcg (50,000 unit) capsule 2018 active Medicati on ID: 409998 B rand Name: Vitamin D2 Send Method: [...] mg tablet 06/10 completed Medicati on ID: 275781 B rand Name: Jantoven Send Method: E-Prescr ibed Sub s Allowed: subs OK Speci al Instruct ion: TAKE 1-2 TABLETS BY MOUTH DAILY DIRECTED BY [facility] Med Kenney Potts me: Jantoven [...] delayed release 06/10 completed Medicati on ID: [id number] B rand Name: Dexilant Send Method: E-Prescr ibed Sub s Allowed: subs OK Medic ationGen ericName : Dexilant Not Available Not Available Not Available Myrbetriq 25 mg tablet,ex tended release active Medicati on ID: 255982 B rand Name: Myrbetri q Send Method: E-Prescr ibed Sub s Allowed: subs OK Medic ationGen ericName : Myrbetri q Not Available Not Available Not Available Eliquis 5 mg tablet TAKE ONE TABLET BY MOUTH TWICE A DAY 09/06 completed Not Available Not Available Not Available Breo Ellipta 100 mcg-25 mcg/dose powder for inhalatio n 09/06 completed Medicati on ID: [id number] B rand Name: Breo Ellipta Send Method: [...] Y Anemia Y Arthritis Y Anxiety Y High Cholesterol Y GERD/Reflux Y Stroke Y Hypertension Y Depression Y Asthma Y Gynecological HistoryNo gynecological history recorded. Obstetrics History GPAL:G 0 P 0 0 0 0 Past Encounters Encounter ID Performer Location Encounter Start Date Encounter Closed Date Diagnosis/Indication Diagnosis SNOMED-CT Code Diagnosis ICD10 Code Diagnosis Note [id number] ALBERTO FAJARDO MD [facility] [address] [address] 09/06/2024 14:30:24 09/06/2024 15:27:53 Postmastoidectomy complication [id number] H95.192 Left canal wall down mastoidect anh was debrided of accumulate d squamous debris. No signs of acute or chronic inflammati on. No signs of prosthesis dislodgmen t or other mobile anomalies. Follow-up in 1 year for next mastoid debridemen t Mixed cond uctive and sensorineural hearing loss of left ear [id number] 9107 H90.A32 Sensorineu ral hearing loss in right ear 9835908164 9100 H90.A21 Right Ear:Modera tely-sever e SNHL with good speech discrimina tion.Type A tympanogra m.Left Ear:Modera te to severe MHL with good speech discrimina tion.Type B tympanogra m. [id number] CARSON ALCALA [facility] [address] [address] 09/06/2024 15:15:11 09/12/2024 11:27:39 Mixed conductive and sensorineural hearing loss of left ear 7390695642 9107 H90.A32 Sensorineu ral hearing loss in right ear 5928375772 9100 H90.A21 Right Ear:Modera tely-sever e SNHL with good speech discrimina tion.Type A tympanogra m.Left Ear:Modera te to severe MHL with good speech discrimina tion.Type B tympanogra m. Health Concerns Section Related Observation LastModified by Organization Detai ls LastModified Time None Recorded Concern Status LastModified by Organization Details LastModified Time None Recorded Advance Directives Directive None Recorded Payers Insurance Date Sequence Insurance Name Policy Number Policy Chiu Covered Member ID Chiu Member ID Guarantor Name 08/31/2024 1 [place]ARE [place]: [employer] Yaneth Rodriguez [id number] Yaneth Gusman Rodriguez 08/31/2024 2 [place] [facility] [address] Yaneth Gusman Rodriguez [id number] Yaneth Rodriguez Notes Date Note Type Note Provider Name and Address Organization Details Recorded Time 09/06/2024 text/html Patient with left-sided canal wall down mastoidectomy cavity comes in for mastoid debridement. Patient has hearing loss amenable to amplification. At her last visit she told me that she was gifted a pair of Sofiya hearing aids. I recommended she meet with a local production miner to have the hearing aids adjusted to match her hearing aids. She lost this paperwork and wants to have her hearing test updated so that she can have the hearing aids adjusted. No recent pain or discharge. She feels like something is knocking around in there in the left ear. ALBERTO FAJARDO MD [address] [place] [address], [place], [address], [facility] - [facility] 09/06/2024 16:02:07 OBGyn Episode No OBEpisode recorded.
--- OUTSIDE RECORDS SUMMARY | 2024-10-11 14:17 | XMS_ITS | Encounter Summary ---
Author Organization [facility] Address [address] [place] [address] Care Team Providers Care Bending Frame Operator Name Role Phone Negrita Bains MD Primary Care Provider [phone] Encounter Details Date Type Department Care Team (Late st Contact Info) Description 09/29/2024 Telephone [facility] - [facility] 154 300 [facility] 154 [place] [address] Mich Montiel NP 300 [place], [place] [id number] Social History Tobacco Use Types Packs/Day Years [...] as of this encounter Progress Notes * Rachna Ireland MA - 09/30/2024 2:04 PM EDT Spoke with pt to inform her of the pamphlet she will be receiving for the loop recorder procedure, Pt seemed very confused about upcoming procedure, states she was not aware of this procedure, I asked her if she remembers yesterdays office visit with Mich where they discussed the loop recorder, shestates she thought it was for an ultrasound. I spoke with Mich got more info on pts visit and procedure and called pt back and explained she is going in for a loop recorder procedure. Pt also states she is taking torsemide just unsure of how many mg, states her son is the one who takes care of her meds. Pt also aware I will be mailing her thelab slip for BMP within the next week. * Rusty Russ - 09/30/2024 1:31 PM EDT Ynaeth calling back in regards to messages down below, please call back as soon as as we are available. * Rachna Ireland MA - 09/30/2024 12:52 PM EDT Spoke with pt, I was unable to relay message, pt stated she was currently with her therapist and did not have time to speak to me , I asked pt if it was ok to call back later , she stated she might be in bed already, I asked if there was a specific time or day?, she stated she will give me a call back when she can. * Mich Montiel NP - 09/29/2024 4:45 PM EDT Can we please call the patient and let her know that she when she receives her pamphlet of all the information in regards to her upcoming important meant for the loop recorder, there is a phone number with the direct line so that they can speak to someone with all the questions they have in regard to the procedure. Can we get them to update a BMP within the next week or so, can we also verify if they are taking the torsemide and what dosage? documented in this encounter Plan of Treatment Upcoming Encounters Date Type Department Care Team (Latest Contact Info) Description 10/28/2024 11:00 AM EDT Hospital Encounter [facility]iac [place] [address] [place] [address] Parish Morgan MD [address] [address] Paroxysmal atrial fibrillation (CMS/HCC V24, CMS/HCC V28) 10/28/2024 11:00 AM EDT - 10/28/2024 11:30 AM EDT Surgery [facility] [place] [address] [place] [phone] Parish Morgan MD [address] [address] Loop recorder insertion [58464 (CPT??)] 11/09/2024 1:00 PM EDT Appointment [facility] Interventional Radiology [address] [place] [phone] 12/14/2024 3:45 PM EDT [facility] [address] [phone] Rosa M Ellsworth MD [address] [address] 01/11/2025 11:00 AM EDT Ancillary Procedure [facility] Cardiology [facility] [address] [address] 04/11/2025 8:40 AM EST Office Visit [facility] Cardiology [facility] [address] [address] Mich Montiel NP 300 [place] [address] Scheduled Procedures Name Priority Associated Diagnoses Date/Ti me LOOP RECORDER INSERTION Atrial fibrillation, unspecified type ([facility] V24, [facility] V28) documented as of this encounter Visit Diagnoses Not on filedocumented in this encounter Care Teams Bending Frame Operator Relationship Specialty Start Date End Date Negrita Bains MD [address] [place] [address] PCP - General Internal Medicine 08/01/24 documented as of this encounter
--- OUTSIDE RECORDS SUMMARY | 2024-10-11 14:17 | XMS_ITS | Clinical Summary ---
Author Organization 300 [facility] Address 300 [place] [address] Phone Care Team Providers Care Flare Maker Name Role Phone Negrita Bains MD Primary Care Provider [phone] Allergies Active Allergy Reactions Criticality Noted Date [...] 250 mg tablet 1 Tab daily. Active vitamin B complex vit C no.4 (SUPER B COMPLEX + C ORAL) Take by mouth. Activ e calcium carb/vit D3/minerals (CALCIUM-VITAM IN D ORAL) Take 50,000 Units by mouth once a week. Active vitamin C tablet Take 1 tablet (100 mg total) by mouth 1 (one) time each day. 05/21/20 23 Active biotin 5 mg tablet Take by mouth daily. Active dexlansoprazol e (DEXILANT) [address] capsule Take 1 capsule (30 mg total) by mouth 1 (one) time each day. Active escitalopram (LEXAPRO) 20 mg tablet 1 Tab daily. Active escitalopram (LEXAPRO) 5 mg tablet Take 1 Tablet by mouth daily. Taken with 20 mg to equal 25 mg qd 06/10/19 23 Active fluticasone furoate-vilant Senthil (BREO ELLIPTA) 200-25 mcg/dose inhaler Inhale into the lungs daily. Active gabapentin (NEURONTIN) 100 mg capsule Take 2 Capsules by mouth 2 times daily. Active LORazepam (ATIVAN) 1 mg tablet 1 Tab as needed. 1-2 tabs daily as needed Active methenamine hippurate (HIPREX) 1 gram tablet Take 1 tablet (1 g total) by mouth 1 (one) time each day. 05/21/20 23 Active potassium chloride (KLOR-CON) 10 mEq CR tablet Take 1 tablet (10 mEq total) by mouth 1 (one) time each day. 01/06/20 24 Active simvastatin (ZOCOR) 40 mg tablet Take 1 tablet (40 mg total) by mouth 1 (one) time each day. 11/20/19 21 Active solifenacin (VESICARE) 10 mg tablet Take 1 tablet (10 mg total) by mouth 1 (one) time each day. Active vibegron (Gemtesa) 75 mg tablet tablet Take by mouth. Activ e metoprolol tartrate (LOPRESSOR) 100 mg tablet Take 1 tablet (100 mg total) by mouth 2 (two) times a day. 180 tablet 2 06/03/19 25 Active umeclidinium-v ilanteroL (Anoro Ellipta) 62.5-25 mcg/actuation inhaler Inhale 1 puff by mouth 1 (one) time each day. 1 each 08/27/19 25 026 Active calcium carbonate-kirt min D 500 mg-5 mcg (200 unit) per tablet 1 tab, Tab, Oral, BIDWLS, Refills 0 02/10/20 16 Active ciclopirox (LOPROX) 0.77 % cream 09/01/19 25 Active Belsomra 5 mg tablet TAKE ONE-HALF TO ONE TABLET BY MOUTH AT BEDTIME NEEDED.TAKE 1/2 TO START,INCREASE TO 1 TABLET IF NECESSARY 06/09/19 25 Active losartan (COZAAR) 50 mg tablet Take 1 tablet (50 mg total) by mouth 1 (one) time each day. Active amLODIPine (NORVASC) 5 mg tablet Take 1 tablet (5 mg total) by mouth 1 (one) time each day. Active amoxicillin (AMOXIL) 500 mg tablet Take 1 tablet (500 mg total) by mouth 2 (two) times a day. Active multivitamin (MULTIPLE VITAMINS ORAL) Take by mouth 2 times daily. 025 Discontinued Lactobacillus acidophilus (PROBIOTIC ORAL) 2 times daily. 025 Discontinued acetaminophen (TYLENOL) 500 mg tablet as needed. 025 Discontinued(T herapy completed) albuterol 2.5 mg /3 mL (0.083 %) nebulizer solution 11/13/19 025 Discontinued(T herapy completed) albuterol HFA (PROAIR HFA ; PROVENTIL HFA ; VENTOLIN HFA) 90 mcg/actuation inhaler 11/14/19 025 Discontinued(T herapy completed) losartan (COZAAR) 25 mg tablet Take 1 tablet (25 mg total) by mouth 1 (one) time each day. 04/21/20 025 Discontinued torsemide (DEMADEX) 20 mg tablet Take 2 tablets (40 mg total) by mouth 1 (one) time each day. 07/17/19 24 025 Discontinued losartan (COZAAR) 25 mg tablet Take 1 tablet (25 mg total) by mouth 1 (one) time each day. 90 tablet 1 07/19/19 025 Discontinued ARIPiprazole (Abilify) 2 mg tablet Take 1 tablet (2 mg total) by mouth 1 (one) time each day. 025 Discontinued fluticasone propionate (FLONASE) 50 mcg/actuation nasal spray Administer 1 spray into each nostril 1 (one) time each day. Shake gently. Before first use, prime pump. After use, clean tip and replace cap. 16 g 11 08/27/19 025 Discontinued Eliquis 5 mg tablet Take 1 tablet (5 mg total) by mouth 2 (two) times a day. 09/16/19 24 025 Discontinued aspirin 81 mg EC tablet Take 1 tablet (81 mg total) by mouth. 01/10/2009/29/2 025 Discontinued cefuroxime (CEFTIN) 500 mg tablet Take 1 tablet (500 mg total) by mouth every 12 (twelve) hours. 08/19/19 25 025 Discontinued cetirizine (ZyrTEC) 10 mg tablet TAKE ONE TABLET BY MOUTH EVERY DAY NEEDED FOR ALLERGY SYMPTOMS 01/14/20 24 025 Discontinued cholecalcifero l (VITAMIN D-3) 50 mcg (2,000 unit) tablet 1 tablet (2,000 Units total) 1 (one) time each day at the same time. 025 Discontinued magnesium oxide 250 mg magnesium tablet 1 tablet (250 mg total) 1 (one) time each day at the same time. 025 Discontinued Active Problems Problem Noted Date Diagnosed Date CVA (cerebral vascular accident) ([facility] V24, [facility] [place]/[facility] V28) 09/27/2024 Asthma 10/14/2022 Back pain 10/14/2022 Chronic interstitial cystitis 10/14/2022 Osteoporosis 10/14/2022 Pleural effusion, right 10/14/2022 Post-pericardiotomy syndrome 10/14/2022 Posttraumatic stress disorder 10/14/2022 Sacroiliitis ([facility] V24) 10/14/2022 Overview (04/12/2024): Last Assessment [...] can follow-up with us afterwards. Severe obesity ([facility] V24, [facility] V28) 2022 Ulcerative colitis ([facility] V24, [facility] V28) (HFpEF) heart failure with p reserved ejection fraction ([facility] V24, [facility] V28) 06/17/2022 Overview (08/30/2024): Assessment & Plan (09/29/2024 4:44 PM EDT): Patient is not a candidate for SGLT2 inhibitors due to frequent UTIs. Continue with the metoprolol. Patient also using 40 mg of torsemide. I want her to update a BMP. Could potentially look to add in something like a spironolactone in the future based on creatinine and electrolyte values. Orders: Transthoracic echocardiogram (TTE) complete with PRN contrast, bubble, strain, and 3D order panel; Future Assessment & Plan (08/30/2024 11:21 PM EDT): Euvolemic on exam on current diuretic therapy. Continue current torsemide dosing. However, she has had no blood work done in over 6 months. - Order basic blood work to update medical records. - Send results to primary care physician for review. Wedge fracture of thoracic v ertebra ([facility] V24, [facility] V28) 01/24/2021 Atrial fibrillation ([facility] V24, [facility] V28) 0 11/19/2020 Overview (08/30/2024): previously anticoagulated with Coumadin but has had complications of severe hematuria in the past; is very uncertain based on our lack of access to [facility] records how much A-fib she truly has -Admitted at [facility] in August 2019 for for both GI and bleeding-EGD during that admission showed normal upper endoscopy -At her last visit with Ivone Coyle NP in October 2023, the idea of both watchman and reinitiation of anticoagulation were both addressed but at the time, the patient did not want either Assessment & Plan (09/29/2024 4:44 PM EDT): Sinus rhythm at the appointment today. Unable to tolerate anticoagulation, is not on anticoagulation right now. Patient has an appointment for an implanted loop recorder to determine A-fib burden. Patient would be a good candidate for watchman's device. She is rate controlled metoprolol. Assessment & Plan (08/30/2024 11:21 PM EDT): [...] continue baby aspirin. - Request results from [facility]. - Will try to communicate with Dr. Stewart, neurologist. Orders: ECG 12 lead Case Request EP Lab: Loop recorder insertion Hyperlipidemia 11/19/2020 Overview (04/12/2024): Last Assessment & Plan: I do not have a recent lipid profile. Continue statin at current dose for now. If her most recent lipid profile can be sent from her PCPs office, we would greatly appreciated. Assessment & Plan (09/29/2024 4:44 PM EDT): Please continue on the simvastatin 40 mg p.o. daily. Hypersomnia 11/19/2020 Overview (04/12/2024): Last Assessment & [...] surveillance and SBE prophylaxis Assessment & Plan (09/29/2024 4:44 PM EDT): We will update an echocardiogram later this year. Patient was discontinued off of the 81 mg aspirin, this is concerning in light of bioprosthetic valves. She reports she is has a history of being unable even to tolerate aspirin's. Orders: Transthoracic echocardiogram (TTE) complete with PRN contrast, bubble, strain, and 3D order panel; Future Assessment & Plan (08/30/2024 11:21 PM EDT): Known murmur of mild prosthetic aortic stenosis. Echocardiogram done at [facility]. - Request results from [facility]. Hypertension 08/16/2020 Overview (04/12/2024): Last Assessment & Plan: Patient's blood pressure is well-controlled in office today. Continue diuretic, beta-bryan and ARB Assessment & Plan (09/29/2024 4:44 PM EDT): Would like to keep a close eye on this. Patient is taking the increased losartan 50 mg p.o. daily in addition to the amlodipine. Patient can switch to take the amlodipine at night if bothered by lower extremity edema. Educated on the importance of diet lifestyle to help further assist in reducing blood pressure. The patient was encouraged to follow low-salt low-fat diet, make purposeful strides towards weight loss, and engage in routine aerobic exercise as tolerated. Assessment & Plan (08/30/2024 11:21 PM EDT): [...] repeat her echocardiogram. Fracture of thoracic spine ([facility] V24, [facility] V28) 05/26/2018 Osteoarthritis of knee 04/12/2018 Gastroesophageal reflux disease without esophagi tis 04/12/2018 Resolved Problems Problem Noted Date Diagnosed Date Resolved Date Chronic diastolic heart fail ure ([facility] V24, CMS/HCC V28) 10/14/2022 08/30/2024 Congestive heart failure ([facility] S/[facility] V24, [facility] V28) 11/15/2020 08/30/2024 Overview (04/12/2024): Congestive [...] Encounters Date Type Department Care Team Description 09/29/2024 12:40 PM EDT Office Visit [facility] Cardiology [facility] [address] [place] [address] Mich Montiel NP Chronic heart failure with preserved ejection fraction ([facility] V24, [facility] V28) (Primary Dx); Hx of aortic valve replacement; Atrial fibrillation, unspecified type (CMS/HCC V24, CMS/[facility] V28); Hyperlipidemia, unspecified hyperlipidemia type; Primary hypertension 09/29/2024 Telephone [facility] [address] [address] [place] [address] Mich Montiel NP 09/28/2024 Telephone [facility] [address] [place] [address] Parish Morgan MD Procedure (ILR Implant 6.6.25) 09/20/2024 Telephone [facility] [address] [place] [address] Smitha Carroll PA Med Refill; Hospital Follow-up (Hospital follow up ) 09/01/2024 2:30 PM EDT Office Visit Neurosurgery [facility] [address] [facility] [address] [place] [phone] Michael Sweet PA Sacroiliitis (CMS/HCC V24) (Primary Dx) 08/30/2024 1:11 PM EDT - 08/30/2024 11:59 PM EDT Hospital Encounter [facility] [place] [address] [place] [address] Chronic obstructive pulmonary disease, unspecified COPD type (CMS/HCC V24, CMS/HCC V28) Discharge Disposition: Home or Self Care 08/30/2024 Telephone [facility] Cardiology [facility] [address] [facility] 154 [place] [phone] Madeline Espinosa MD 08/26/2024 2:00 PM EDT Office Visit Pul[facility]olgy [facility] [address] [facility] [address] [place] [phone] Rosa M Ellsworth MD Chronic obstructive pulmonary disease, unspecified COPD type (CMS/HCC V24, CMS/HCC V28) (Primary Dx); Chronic heart failure with preserved ejection fraction (CMS/HCC V24, CMS/HCC V28); Pleural effusion, right; Hypoxemia 08/25/2024 Telephone [facility] [address] [facility] [address] [place] [phone] 08/04/2024 Telephone [facility] Cardiology [facility] [address] [place] [address] Negrita Bains MD Medical Records 08/03/2024 1:00 PM EDT Office Visit [facility] Cardiology [facility] [address] [facility] [address] [place] [phone] Madeline Espinosa MD Atrial fibrillation, unspecified type (CMS/HCC V24, CMS/HCC V28) (Primary Dx); Chronic heart failure with preserved ejection fraction (CMS/HCC V24, CMS/HCC V28); Hx of aortic valve replacement; H/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; Primary hypertension 07/19/2024 Telephone [facility] [address] [facility] [address] [place] [address] Ivone Coyle NP Med Refill [...] Congestive heart failure (CHF) (CMS/HCC V24, CMS /HCC V28) Ulcerative colitis (CMS/HCC V24, CMS/HCC V28) Asthma Back pain Anxiety Depression Hypertension [...] Sign Reading Time Taken Comments Blood Pressure 130/90 09/29/2024 12:48 PM EDT Pulse 63 09/29/2024 12:48 PM EDT Temperature 36.7 ??C (98 ??F) 08/26/2024 2:15 PM EDT Respiratory Rate 20 08/26/2024 2:15 PM EDT Oxygen Saturation 95% 09/29/2024 12:48 PM EDT Inhaled Oxygen Concentration - - Weight 86.2 kg (190 lb) 09/29/2024 12:48 PM EDT Height 152.4 cm (5') 09/29/2024 12:48 PM EDT Body Mass Index 37.11 09/29/2024 12:48 PM EDT Plan of Treatment Upcoming Encounters Date Type Department Care Team (Latest Contact Info) Description 10/28/2024 11:00 AM EDT Hospital Encounter [facility] Cardiac Healthcare Insurance Sales Agent [address] [place] [phone] Parish Morgan MD [address] [address] Paroxysmal atrial fibrillation (CMS/HCC V24, CMS/HCC V28) 10/28/2024 11:00 AM EDT - 10/28/2024 11:30 AM EDT Surgery [facility] Cardiac Healthcare Insurance Sales Agent [address] [place] [phone] Parish Morgan MD [address] [address] Loop recorder insertion [[id number] (CPT??)] 11/09/2024 1:00 PM EDT Appointment [facility] Interventional Radiology [address] [place] [phone] 12/14/2024 3:45 PM EDT Office Visit Pulmonolgy - [place] [address] [facility] [address] [place] [phone] Rosa M Ellsworth MD 175 [facility] [address] [place] [address] 01/11/2025 11:00 AM EDT Ancillary Procedure [facility] Cardiology [facility] [address] 300 [facility] [address] [place] [address] 04/11/2025 8:40 AM EST Office Visit [facility] [address] [facility] [address] [place] [address] Mich Montiel NP 300 [place] [address] Scheduled Procedures Name Priority Associated Diagnoses Date/Ti me LOOP RECORDER INSERTION Atrial fibrillation, unspecified type ([facility] V24, [facility] V28) Health Maintenance Due Date Last [...] Signed Date: 08/30/2024 14:50 ET Workstation ID: [id number] Transcribed By: Self Edit Transcribed Date: 08/30/2024 [...] Signed Date: 08/30/2024 14:50 ET Workstation ID: [id number] Transcribed By: Self Edit Transcribed Date: 08/30/2024 14:48 ET Rosa M Ellsworth MD IMG XR PROCEDURES Final Result * ECG 12 lead (08/03/2024 1:06 PM EDT) [facility] Ventricular Rate ECG 55 BPM GEMUSE Atrial Rate 55 BPM GEMUSE P-R Interval 156 ms GEMUSE QRS Duration 164 ms GEMUSE Q-T Interval 504 ms GEMUSE QTc 482 ms GEMUSE P Wave Amorita 79 degrees GEMUSE R Amorita -56 degrees GEMUSE T Amorita -34 degrees GEMUSE ECG Interpretation Sinus bradycardia Right bundle branch block Left anterior fascicular block Bifascicular block Abnormal ECG When compared with ECG of 10-FEB-2023 16:26, Premature atrial complexes are no longer Present T wave inversion more evident in Inferior leads Confirmed by MADELINE ESPINOSA ([id number]) on 08/05/2024 5:24:37 PM GEMUSE 08/03/2024 1:06 PM EDT 08/05/2024 5:24 PM EDT Madeline Espinosa MD ECG ORDERABLES Final Result GEMUSE * Annual BMP Blood Test (02/26/2023) [facility] Annual BMP Blood Test abstracted Historical Provider HEALTH MAINTENANCE Final Result * Lipid panel (06/26/2021) [facility] LDL/HDL Ratio 2 0 - 4 Triglycerides [...] Documents on File Type Date Recorded Patient Commercial Intern Expl anation Health Care Decision (hx) 02/12/2023 DANIEL SANTAMARIA DIRECTIVE Care Teams Flare Maker Relationship Specialty Start Date End Date Negrita Bains MD [address] [place] [address] PCP - General Internal Medicine 08/01/24
--- OUTSIDE RECORDS SUMMARY | 2024-10-11 14:17 | XMS_ITS | Encounter Summary ---
Author Organization [facility] Address [address] [place] [address] Care Team Providers Care Stretcher Helper Name Role Phone Negrita Bains MD Primary Care Provider [phone] Reason for Visit * Reason Onset Date Comments Procedure 09/28/2024 ILR Implant 6.6. 25 Encounter Details Date Type Department Care Team (Late st Contact Info) Description 09/28/2024 Telephone [facility] [address] [facility] [address] [place] [phone] Parish Morgan MD 300 [facility] [address] [place] [address] Procedure (ILR Implant 6.6.25) Social History Tobacco Use Types Packs/Day Years [...] as of this encounter Progress Notes * Neelam Luther - 10/06/2024 2:03 PM EDT Spoke with patient she's all set bloodwork all done * Giovany Samuels - 10/05/2024 4:03 PM EDT Patient called today because she has multiples of orders for blood work and wanted to clarity what she needs to get done before procedure. I see the BPM, complete blood cout, and Prothrombin w/ INR, should she also get CBC and differential done? She is going to the [facility] lab on [facility] in [place]. Please reach out at [phone] to discuss. * Neelam Lutehr - 09/29/2024 9:11 AM EDT Spoke with patients gina Epps about procedure. Scheduled on 10.28.[address] Morgan at [facility] at 11am Mailing packet to patient today Packet mailed to patient includes instructions with medications, follow-up, lab orders, pre/post procedural care, my direct number and pamphlet for procedure Confirmed address on file Arrival time 10am Bloodwork to be done within 30 days of and or at least a week before procedure at any lab of choice, *[facility], [facility] or [facility]* (Labs are not fasting) - ATTACHED TO PACKET (3 papers stapled together) Medication instructions are to hold: TORSEMIDE and ELIQUIS morning of procedure You can take all your regular morning medications with some water These instructions are given verbal and written and understood Patient aware if they do NOT follow these instructions or show up to procedure they will have to berescheduled to next available which could take up to 6 to 10 weeks. Patient will have to be fasting from midnight night before procedure. Patient is to report to [facility] to the 3rd floor - Near Patient Registration Patient agreed to all instructions and date, time and location above via phone Case Request sent documented in this encounter Plan of Treatment Upcoming Encounters Date Type Department Care Team (Latest Contact Info) Description 10/28/2024 11:00 AM EDT Hospital Encounter [facility] [address] [place] [address] Parish Morgan MD [address] [address] Paroxysmal atrial fibrillation (CMS/HCC V24, CMS/HCC V28) 10/28/2024 11:00 AM EDT - 10/28/2024 11:30 AM EDT Surgery [facility] [address] [place] [address] Parish Morgan MD [address] [address] Loop recorder insertion [01745 (CPT??)] 11/09/2024 1:00 PM EDT Appointment [facility] Interventional Radiology [address] [place] [address] 12/14/2024 3:45 PM EDT [facility] [address] [phone] Rosa M Ellsworth MD [address] [address] 01/11/2025 11:00 AM EDT Ancillary Procedure [facility] [address] [phone] 04/11/2025 8:40 AM EST Office Visit [facility] [address] [phone] Mich Montiel NP [address] [place] [address] Scheduled Orders Name Type Priority Associated Diagnoses Orde r Schedule Basic metabolic panel Lab Routine Paroxysmal atrial fibrillation (CMS/HCC V24, CMS/HCC V28) 1 Occurrences starting 09/29/2024 until 09/29/2025 Prothrombin time with INR Lab Routine Paroxysmal atrial fibrillation ([facility] [place] V24, [facility] V28) 1 Occurrences starting 09/29/2024 until 09/29/2025 Complete blood count Lab Routine Paroxysmal atrial fibrillation ([facility] [place] V24, [facility] V28) 1 Occurrences starting 09/29/2024 until 09/29/2025 Scheduled Procedures Name Priority Associated Diagnoses Date/Ti me LOOP RECORDER INSERTION Atrial fibrillation, unspecified type ([facility] [place] [place] V24, [facility] V28) documented as of this encounter Visit Diagnoses Diagnosis Paroxysmal atrial fibrillation ([facility] V24, [facility] V28)- Primary Atrial fibrillation Atrial fibrillation ([facility] V24, [facility] V28)- Primary Atrial fibrillation Paroxysmal atrial fibrillation ([facility] V24, [facility] V28) Atrial fibrillation Paroxysmal atrial fibrillation ([facility] [place] [place] V24, [facility] V28) Atrial fibrillation documented in this encounter Orders Case Request Count Last Ordered Date First Orde red Date CASE REQUEST EP LAB 1 09/29/2024 documented in this encounter Care Teams Stretcher Helper Relationship Specialty Start Date End Date Negrita Bains MD [address] [place] [address] PCP - General Internal Medicine 08/01/24 documented as of this encounter
== END 2024-10-11 14:41 | disposition home or self-care (01) ==
LOC: HO.HUSH 13:13
PROVIDERS: PCP Internal Medicine; Visit Provider Nurse Practitioner Family
DX: R32 Unspecified urinary incontinence (principal); N30.00 Acute cystitis without hematuria; R35.0 Frequency of micturition; N39.0 Urinary tract infection, site not specified; N30.10 Interstitial cystitis (chronic) without hematuria; Z13.9 Encounter for screening, unspecified
CPT/HCPCS: 99214; G2211

== ENCOUNTER → 2024-10-11 13:12 | Outpatient (BNVA) | payer MEDICARE, MEDICAID, SELFPAY | PROVIDERS: PCP Internal Medicine; Visit Provider Nurse Practitioner Family | DX: N39.46 Mixed incontinence (principal); N30.11 Interstitial cystitis (chronic) with hematuria; R35.0 Frequency of micturition | CPT/HCPCS: 51798; 81003; 99212 ==

== ENCOUNTER 2024-10-20 16:02 | Outpatient (REF) | payer MEDICARE, MEDICAID, SELFPAY ==
--- OUTSIDE RECORDS SUMMARY | 2024-10-20 16:07 | XMS_ITS | Clinical Summary ---
Author Organization Unknown Care Team Providers Care Sports Clerk Name Role Phone HOMERO ALANIS, MARYANNE Unavailable Unavailable SHANKAR NICHOLAS, SANTA Unavailable Unavailable Payers Payer Name Policy Type Policy Number Effective Date Expira tion Date MEDICARE - [place] - PDGM [id number] Problems Condition Name Condition Details Condition Category Status Onset Date Resolution Date Last Treatment Date Treating Clinician Comments URINARY TRACT INFECTION, SITE NOT SPECIFIED Active 05-25 00:00: 00 PAROXYSMAL ATRIAL FIBRILLATION Active 05-25 00:00: 00 HYPERTENSIVE HEART DISEASE WITH HEART FAILURE Active 05-25 00:00: 00 UNSPECIFIED DIASTOLIC (CONGESTIVE) HEART FAILURE Active 05-25 00:00: 00 MAJOR DEPRESSIVE DISORDER, RECURRENT, UNSPECIFIED Active 05-25 00:00: 00 UNSPECIFIED CIRRHOSIS OF LIVER Active 05-25 00:00: 00 GENERALIZED ANXIETY DISORDER Active 05-25 00:00: 00 ANEMIA, UNSPECIFIED Active 05-25 00:00: 00 ATHSCL HEART DISEASE OF [place] CORONARY ARTERY W/O ANG PCTRS Active 05-25 00:00: 00 GASTRO-ESOPH AGEAL REFLUX DISEASE WITHOUT ESOPHAGITIS Active 05-25 00:00: 00 OBESITY, UNSPECIFIED Active 05-25 00:00: 00 POSTCARDIOTO MY SYNDROME Active 05-25 00:00: 00 INSOMNIA, UNSPECIFIED Active 05-25 00:00: 00 BILATERAL PRIMARY OSTEOARTHRIT IS OF HIP Active 05-25 00:00: 00 AGE-RELATED OSTEOPOROSIS W/O CURRENT PATHOLOGICAL FRACTURE Active 05-25 00:00: 00 UNSPECIFIED CATARACT Active 05-25 00:00: 00 UNSPECIFIED ASTHMA, UNCOMPLICATE D Active 05-25 00:00: 00 IRON DEFICIENCY ANEMIA, UNSPECIFIED Active 05-25 00:00: 00 ACQUIRED ABSENCE OF BOTH CERVIX AND UTERUS Active 05-25 00:00: 00 PRESENCE OF ARTIFICIAL KNEE JOINT, BILATERAL Active 05-25 00:00: 00 PERSONAL HISTORY OF NICOTINE DEPENDENCE Active 05-25 00:00: 00 PRESENCE OF PROSTHETIC HEART VALVE Active 05-25 00:00: 00 PERSONAL HISTORY OF MALIGNANT NEOPLASM OF BREAST Active 05-25 00:00: 00 CEREBRAL INFARCTION, UNSPECIFIED Active 09-21 00:00: 00 Allergies, Adverse Reactions, Alerts Allergy Name Allergy Type Status Severity Reaction(s) Onset Date Inactive Date Treating Clinician Comments NKA Propensity to adverse reactions Active 2024-08 12:57:3 1 Medications Ordered Medication Name Filled Medication Name Start Date Stop Date Current Medication? Ordering Clinician Indication Dosage Frequency Signature (SIG) Comments Components solifenacin 10 mg tablet 09-14 00:00: 00 Yes [id number] Per instruc tions EVERY DAY Per instructio ns EVERY DAY (route: oral) Med Classific ation: Genitouri nary Therapy aripiprazol e 2 mg tablet 09-09 00:00: 00 09-21 23:59 :00 No [id number] Per instruc tions EVERY DAY Per instructio ns EVERY DAY (route: oral) Med Classific ation: Central Nervous System Agents escitalopra m 20 mg tablet 09-09 00:00: 00 Yes [id number] Per instruc tions ONCE A DAY Per instructio ns ONCE A DAY (route: oral) Med Classific ation: Central Nervous System Agents dexlansopra zole 30 mg capsule,bip hase delayed release 09-01 00:00: 00 Yes [id number] Per instruc tions EVERY DAY Per instructio ns EVERY DAY (route: oral) Med Classific ation: Gastroint estinal Therapy Agents ciclopirox 0.77 % topical cream 08-31 00:00: 00 Yes [id number] Per instruc tions ONCE DAILY Per instructio ns ONCE DAILY (route: topical) Med Classific ation: Dermatolo gical metoprolol tartrate 100 mg tablet 08-29 00:00: 00 Yes [id number] Per instruc tions TWICE A DAY Per instructio ns TWICE A DAY (route: oral) Med Classific ation: Cardiovas cular Therapy Agents doxepin 10 mg capsule 08-28 00:00: 00 Yes [id number] Per instruc tions DAILY AT BEDTIME Per instructio ns DAILY AT BEDTIME (route: oral) Med Classific ation: Central Nervous System Agents methenamine hippurate 1 gram tablet 08-28 00:00: 00 Yes [id number] Per instruc tions EVERY DAY Per instructio ns EVERY DAY (route: oral) Med Classific ation: Genitouri nary Therapy Vitamin C 1,000 mg tablet 08-28 00:00: 00 Yes [id number] Per instruc tions EVERY DAY Per instructio ns EVERY DAY (route: oral) Med Classific ation: Electroly te Balance-N utritiona l Products Anoro Ellipta 62.5 mcg-25 mcg/actuati on powder for inhalation 08-26 00:00: 00 Yes [id number] Per instruc tions ONE TIME EACH DAY Per instructio ns ONE TIME EACH DAY (route: inhalation ) Med Classific ation: Respirato ry Therapy Agents fluticasone propionate 50 mcg/actuati on nasal spray,suspe nsion 08-26 00:00: 00 09-21 00:00 :00 No [id number] Per instruc tions Per instructio ns (route: nasal) Med Classific ation: Respirato ry Therapy Agents simvastatin 40 mg tablet 08-25 00:00: 00 Yes [id number] Per instruc tions DAILY AT BEDTIME Per instructio ns DAILY AT BEDTIME (route: oral) Med Classific ation: Cardiovas cular Therapy Agents acetaminoph en 500 mg tablet 09-21 00:00: 00 Yes [id number] 2 tablet EVERY 6 HOURS 2 tablet EVERY 6 HOURS (route: oral) Med Classific ation: Analgesic , Anti-infl ammatory or Antipyret ic albuterol sulfate 2.5 mg/3 mL (0.083 %) solution for nebulizatio n 09-21 00:00: 00 Yes [id number] 3 mL EVERY 4 HOURS 3 mL EVERY 4 HOURS (route: inhalation ) Med Classific ation: Respirato ry Therapy Agents amlodipine 5 mg tablet 09-21 00:00: 00 Yes [id number] 1 tablet DAILY 1 tablet DAILY (route: oral) Med Classific ation: Cardiovas cular Therapy Agents amoxicillin 500 mg tablet 09-21 00:00: 00 09-26 23:59 :00 No [id number] 1 tablet 2 TIMES DAILY 1 tablet 2 TIMES DAILY (route: oral) Med Classific ation: Anti-Infe ctive Agents Belsomra 5 mg tablet 09-21 00:00: 00 Yes [id number] 1 tablet BEDTIME 1 tablet BEDTIME (route: oral) Med Classific ation: Central Nervous System Agents ergocalcife rol (vitamin D2) 1,250 mcg (50,000 unit) capsule 09-21 00:00: 00 Yes [id number] 1 capsule WEEKLY 1 capsule WEEKLY (route: oral) Med Classific ation: Electroly te Balance-N utritiona l Products ferrous sulfate 325 mg (65 mg iron) tablet 09-21 00:00: 00 Yes [id number] 1 tablet BEDTIME 1 tablet BEDTIME (route: oral) Med Classific ation: Electroly te Balance-N utritiona l Products gabapentin 300 mg capsule 09-21 00:00: 00 Yes [id number] 1 mg 2 TIMES DAILY 1 mg 2 TIMES DAILY (route: oral) Med Classific ation: Central Nervous System Agents Gemtesa 75 mg tablet 09-21 00:00: 00 Yes [id number] 1 tablet DAILY 1 tablet DAILY (route: oral) Med Classific ation: Genitouri nary Therapy lorazepam 1 mg tablet 09-21 00:00: 00 Yes [id number] 1 tablet DAILY 1 tablet DAILY (route: oral) Med Classific ation: Central Nervous System Agents lorazepam 1 mg tablet 09-21 00:00: 00 Yes [id number] .5 tablet DAILY .5 tablet DAILY (route: oral) Med Classific ation: Central Nervous System Agents losartan 50 mg tablet 09-21 00:00: 00 Yes [id number] 1 tablet DAILY 1 tablet DAILY (route: oral) Med Classific ation: Cardiovas cular Therapy Agents magnesium 250 mg tablet 09-21 00:00: 00 Yes [id number] 1 tablet BEDTIME 1 tablet BEDTIME (route: oral) Med Classific ation: Electroly te Balance-N utritiona l Products naproxen 500 mg tablet 09-21 00:00: 00 Yes [id number] 1 tablet 2 TIMES DAILY 1 tablet 2 TIMES DAILY (route: oral) Med Classific ation: Analgesic , Anti-infl ammatory or Antipyret ic potassium chloride ER 10 mEq tablet,exte nded release 09-21 00:00: 00 Yes [id number] 1 tablet DAILY 1 tablet DAILY (route: oral) Med Classific ation: Electroly te Balance-N utritiona l Products PreserVisio n AREDS-2 250 mg-90 mg-40 mg-1 mg capsule 09-21 00:00: 00 Yes [id number] 1 capsule 2 TIMES DAILY 1 capsule 2 TIMES DAILY (route: oral) Med Classific ation: Alternati ve Therapy Ventolin HFA 90 mcg/actuati on aerosol inhaler 09-21 00:00: 00 Yes [id number] 2 puff EVERY 4 HOURS 2 puff EVERY 4 HOURS (route: inhalation ) Med Classific ation: Respirato ry Therapy Agents vitamin B complex tablet 09-21 00:00: 00 Yes [id number] 1 tablet DAILY 1 tablet DAILY (route: oral) Med Classific ation: Electroly te Balance-N utritiona l Products Vital Signs Vital Name Observation Time Observation Value Commen ts Temperature 2024-10-12 12:19:00.000 96.5 [degF] Temperature 2024-09-30 13:05:00.000 96.6 [degF] Temperature 2024-09-28 12:50:00.000 98.1 [degF] Temperature 2024-09-21 22:36:00.000 98.4 [degF] BMI (%) 2024-09-21 22:36:00.000 36 kg/m2 Height 2024-09-21 22:36:00.000 60 [in_us] Pulse 2024-10-12 12:19:00.000 60 /min Pulse 2024-09-30 13:05:00.000 60 /min Pulse 2024-09-28 12:50:00.000 56 /min Pulse 2024-09-21 22:36:00.000 56 /min O2 Saturation (%) 2024-10-12 12:19:00.000 98 % O2 Saturation (%) 2024-09-30 13:05:00.000 98 % O2 Saturation (%) 2024-09-28 12:50:00.000 98 % O2 Saturation (%) 2024-09-21 22:36:00.000 95 % Respirations 2024-10-12 12:19:00.000 18 /min Respirations 2024-09-30 13:05:00.000 18 /min Respirations 2024-09-28 12:50:00.000 18 /min Respirations 2024-09-21 22:36:00.000 20 /min Weight (lbs) 2024-09-21 22:36:00.000 187 [lb_av] Systolic Blood Pressure 2024-10-12 12:19:00.000 130 mm [Hg] Systolic Blood Pressure 2024-09-30 13:05:00.000 130 mm [Hg] Systolic Blood Pressure 2024-09-28 12:50:00.000 142 mm [Hg] Systolic Blood Pressure 2024-09-21 22:36:00.000 148 mm [Hg] Diastolic Blood Pressure 2024-10-12 12:19:00.000 80 mm [Hg] Diastolic Blood Pressure 2024-09-30 13:05:00.000 86 mm [Hg] Diastolic Blood Pressure 2024-09-28 12:50:00.000 80 mm [Hg] Diastolic Blood Pressure 2024-09-21 22:36:00.000 [...] EXACERBATION OF DISEASE PROCESS.] Future Scheduled Test SKILLED NU RSE FOR O/A OF RESPIRATORY SYSTEM TO IDENTIFY CHANGES ASSOCIATED WITH EXACERBATION AND TO PROVIDE SKILLED TEACHING ON MANAGEMENT OF ASTHMA PROCESS. [code = SKILLED NURSE FOR O/A OF RESPIRATORY SYSTEM TO IDENTIFY CHANGES ASSOCIATED WITH EXACERBATION AND TO PROVIDE SKILLED TEACHING ON MANAGEMENT OF ASTHMA PROCESS.] Future Scheduled Test PHYSICAL T HERAPIST [...] CVA, RISK FACTORS, AND METHODS TO MANAGE TILE FINISHER EFFECTS OF CVA. [code = SKILLED NURSE TO INSTRUCT PATIENT/CAREGIVER ON WARNING SIGNS OF CVA, RISK FACTORS, AND METHODS TO MANAGE USP EFFECTS OF CVA.] Future Scheduled Test SKILLED [...] EXACERBATION OF DISEASE PROCESS.] Future Scheduled Test SKILLED NU RSE FOR O/A AND SKILLED TEACHING RELATED TO SIGNS AND SYMPTOMS AND MANAGEMENT OF AGE-RELATED OSTEOPOROSIS, OA. [code = SKILLED NURSE FOR O/A AND SKILLED TEACHING RELATED TO SIGNS AND SYMPTOMS AND MANAGEMENT OF AGE-RELATED OSTEOPOROSIS, OA.] Future Scheduled Test PATIENT FRY S A [...] MAINTAIN SITUATIONAL AWARENESS AND WILL NOTIFY CLINICAL STORE GROUP MANAGER AND PHYSICIAN/PROVIDER WITH ANY CHANGE IN CONDITION. [code = SKILLED NURSE TO PERFORM ENVIRONMENTAL SAFETY RISK ASSESSMENT AND FALL RISK ASSESSMENT AND PROVIDE INSTRUCTION TO IMPLEMENT ENVIRONMENTAL SAFETY AND FALL PREVENTION STRATEGIES THROUGHOUT THE CERTIFICATION PERIOD. SKILLED NURSE WILL MAINTAIN SITUATIONAL AWARENESS AND WILL NOTIFY CLINICAL STORE GROUP MANAGER AND PHYSICIAN/PROVIDER WITH ANY CHANGE IN CONDITION.] [...] NOTIFY AGENCY OR PHYSICIAN/PROVIDER OF ANY CONCERNS.] Future Scheduled Test PHYSICAL T HERAPIST TO EVALUATE PATIENT SECONDARY TO FUNCTIONAL DEFICITS/SAFETY CONCERNS. PHYSICAL THERAPIST TO ASSESS BEST PRACTICE INTERVENTIONS TO ASSIST PATIENTS TO IMPROVE OR STABILIZE MEDICAL STATUS AND PREVENT RE-HOSPITALIZATION. MEASURES INCLUDING REVIEW AND IDENTIFICATION OF CONCERNS FOR THE FOLLOWING AREAS: DEPRESSION, DRUG REGIMEN, ENVIRONMENTAL SAFETY ISSUES AND FALLS, PRESSURE ULCERS, PAIN, AND DISEASE MANAGEMENT. PHYSICAL THERAPY TO ESTABLISH /UPGRADE/DOWNGRADE THERAPEUTIC EXERCISE PROGRAM AND INSTRUCT PATIENT/CAREGIVER ON EXERCISE PRECAUTIONS WITH WRITTEN HOME PROGRAM. MAY INCLUDE PROM, AAROM, AROM, RROM APPROPRIATE TO IMPROVE FUNCTIONAL STRENGTH AND RANGE OF MOTION. PHYSICAL THERAPY TO INSTRUCT PATIENT/CAREGIVER ON SAFE TRANSFER TECHNIQUES USING PROPER BODY MECHANICS AND EQUIPMENT. PHYSICAL THERAPY TO INSTRUCT PATIENT/CAREGIVER ON GAIT TRAINING TECHNIQUES USING APPROPRIATE ASSISTIVE DEVICE, PROPER BODY MECHANICS TO IMPROVE MOBILITY, AND PREVENT INJURY OF PATIENT AND/OR CAREGIVER. PHYSICAL THERAPY TO ASSESS AND RECOMMEND HOME SAFETY ADAPTATIONS AND EDUCATE PATIENT /CAREGIVER ON FALL PREVENTION STRATEGIES. PHYSICAL THERAPY FOR OBSERVATION AND ASSESSMENT OF PAIN, EFFECTIVENESS OF PAIN MANAGEMENT REGIMEN AND SKILLED TEACHING RELATED TO PAIN MANAGEMENT. THERAPIST TO REPORT INCREASED PAIN LEVEL TO PHYSICIAN FOR PROMPT INTERVENTION. PHYSICAL THERAPY TO INSTRUCT PATIENT/CAREGIVER ON BALANCE AND BALANCE STRATEGIES TO IMPROVE SAFE MOBILITY AND REDUCE RISK FOR FALL AND INJURY SUMMARY OF THERAPY EVAL/ASSESSMENT FINDINGS AND REASON(S) SKILLS OF A THERAPIST ARE INDICATED: PHYSICAL THERAPY EVALUATION (09/30/24) PATIENT IS A [place] 73 YO FEMALE WITH PHYSICAL THERAPY REFERRAL AFTER HOSPITALIZATION 09/15-09/20/24 AFTER EXPERIENCING ONSET OF S/S OF CVA, DX: HYPERTENSIVE CRISIS AND UTI. PATIENT WAS TREATED WITH TNK. PMH: HTN, CHF, ANEMIA, CVA, AFIB WITHOUT ANTICOAGULATION, AORTIC AND MITRAL VALVE REPLACEMENTS, GERD, ULCERATIVE COLITIS, INTERSTITIAL CYSTITIS, RECURRENT UTIS, DEPRESSION, PTSD, ANXIETY, MORBID OBESITY. BILAT TKR, CHRONIC BACK PAIN, OA/OP. PATIENT REPORTS: S1 JOINT PROBLEM BEING TREATED BY MD VILLEGAS AND A NEUROLOGIST, 5 KYPHOPLASTIES, 2 CRUSHED VERTEBRAE (T9 AND T11) THAT CANNOT BE REPAIRED, R TKR RESULTED IN R LE NERVE DAMAGE. PATIENT REPORTS PUREWICK USAGE DURING RECENT HOSPITALIZATION DAMAGED HER URINARY SYSTEM. FALLS HISTORY: NO FALLS REPORTED WITHIN PAST 2 YRS. PATIENT LIVES IN A CLUTTERED 3RD FLOOR APARTMENT WITH SON, 4 STEPS WITH RAIL OUTSIDE, 28 STAIRS WITH BILATERAL RAIL INDOORS. PATIENT HAS A CHAIR POSITIONING AT EACH LANDING IN ORDER TO REST. PATIENT'S SON AMBER IS PAID IMAGING CENTER MANAGER 35 HRS/WK. PLOF: USED CANE IN HOME OR FURNITURE SURFED IN HOME, SUPERVISION ON STAIRS WITH SEATED REST BRAKES EACH LANDING CLOF: DME: CANE, LBQC, TRANSPORT WHEELCHAIR, FWW, HANDHELD SHOWERHEAD, TUB CHAIR, GRAB BAR BY TOILET AND BY TUB, FRONT DESK RECEPTIONIST SAFETY RECOMMENDATION: REMOVAL OF OBJECTS OFF FLOOR THAT ARE A TRIPPING HAZARD PATIENT REPORTS 4/10 BACK PAIN AT REST. PATIENT DEMO BILAT LE 1+, EDUC ON EDEMA CONTROL. BILAT LE ROM WFL, BILAT LE STRENGTH 4- TO 4/5. TO INCREASE BILAT LE STRENGTH, PATIENT COMPLETED BILAT LE SEATED THER EXER WITH VERBAL CUES FOR FORM X 10: ANKLE CIRCLES, PLANTAR/DORSIFLEX, HIP FLEX, KNEE EXT. DISPENSED HEP SHEETS. NOT ABLE TO COMPLETE BED MOBILITY ASSESSMENT PATIENT REFUSED TO ALLOW THIS THERAPIST TO VIEW BEDROOM. PATIENT ABLE TO COMPLETE SIT-->STAND FROM RECLINER WITHOUT AD WITH SUPERVISION, VERBAL CUES TO INCREASE HIP EXT. PATIENT AMB 50' WITHOUT AD WITH OCCASIONAL HAND SUPPORT, DEMO FORWARD FLEXED POSTURE, BILAT RECIPROCAL STEPS WITH FOOT FALT AT INITIAL CONTACT, 0 LOB. TINETTI =17/28, FALL RISK. PATIENT PRESENTS WITH THE FOLLOWING DEFICITS: BILAT LE EDEMA, CHRONIC BACK PAIN, DECREASED ENDURANCE, RESULTING IN DIFFICULTY WITH TRANSFERS, AMB AND STAIR NEGOTIATION. [facility]ED [facility] FREQ 1X4WKS TO ADDRESS DEFICITS, MAX SAFETY AND FUNCTIONAL LEVEL IN HOME ENVIRONMENT WITH THER EXER, ESTABLISH HEP, TRANSFER AND GAIT TRAINING, STAIR NEGOTIATION. PATIENT INFORMED ABOUT PHYSICAL THERAPY POC INCLUDING FREQ, VERBALIZED ACCEPTANCE. MD NOTIFIED ABOUT PATIENT STATUS AND POC. [code = PHYSICAL THERAPIST TO EVALUATE PATIENT SECONDARY TO FUNCTIONAL DEFICITS/SAFETY CONCERNS. PHYSICAL THERAPIST TO ASSESS BEST PRACTICE INTERVENTIONS TO ASSIST PATIENTS TO IMPROVE OR STABILIZE MEDICAL STATUS AND PREVENT RE-HOSPITALIZATION. MEASURES INCLUDING REVIEW AND IDENTIFICATION OF CONCERNS FOR THE FOLLOWING AREAS: DEPRESSION, DRUG REGIMEN, ENVIRONMENTAL SAFETY ISSUES AND FALLS, PRESSURE ULCERS, PAIN, AND DISEASE MANAGEMENT. PHYSICAL THERAPY TO ESTABLISH /UPGRADE/DOWNGRADE THERAPEUTIC EXERCISE PROGRAM AND INSTRUCT PATIENT/CAREGIVER ON EXERCISE PRECAUTIONS WITH WRITTEN HOME PROGRAM. MAY INCLUDE PROM, AAROM, AROM, RROM APPROPRIATE TO IMPROVE FUNCTIONAL STRENGTH AND RANGE OF MOTION. PHYSICAL THERAPY TO INSTRUCT PATIENT/CAREGIVER ON SAFE TRANSFER TECHNIQUES USING PROPER BODY MECHANICS AND EQUIPMENT. PHYSICAL THERAPY TO INSTRUCT PATIENT/CAREGIVER ON GAIT TRAINING TECHNIQUES USING APPROPRIATE ASSISTIVE DEVICE, PROPER BODY MECHANICS TO IMPROVE MOBILITY, AND PREVENT INJURY OF PATIENT AND/OR CAREGIVER. PHYSICAL THERAPY TO ASSESS AND RECOMMEND HOME SAFETY ADAPTATIONS AND EDUCATE PATIENT /CAREGIVER ON FALL PREVENTION STRATEGIES. PHYSICAL THERAPY FOR OBSERVATION AND ASSESSMENT OF PAIN, EFFECTIVENESS OF PAIN MANAGEMENT REGIMEN AND SKILLED TEACHING RELATED TO PAIN MANAGEMENT. THERAPIST TO REPORT INCREASED PAIN LEVEL TO PHYSICIAN FOR PROMPT INTERVENTION. PHYSICAL THERAPY TO INSTRUCT PATIENT/CAREGIVER ON BALANCE AND BALANCE STRATEGIES TO IMPROVE SAFE MOBILITY AND REDUCE RISK FOR FALL AND INJURY SUMMARY OF THERAPY EVAL/ASSESSMENT FINDINGS AND REASON(S) SKILLS OF A THERAPIST ARE INDICATED: PHYSICAL THERAPY EVALUATION (09/30/24) PATIENT IS A [place] 73 YO FEMALE WITH PHYSICAL THERAPY REFERRAL AFTER HOSPITALIZATION 09/15-09/20/24 AFTER EXPERIENCING ONSET OF S/S OF CVA, MD DX: HYPERTENSIVE CRISIS AND UTI. PATIENT WAS TREATED WITH TNK. PMH: HTN, CHF, ANEMIA, CVA, AFIB WITHOUT ANTICOAGULATION, AORTIC AND MITRAL VALVE REPLACEMENTS, GERD, ULCERATIVE COLITIS, INTERSTITIAL CYSTITIS, RECURRENT UTIS, DEPRESSION, PTSD, ANXIETY, MORBID OBESITY. BILAT TKR, CHRONIC BACK PAIN, OA/OP. PATIENT REPORTS: S1 JOINT PROBLEM BEING TREATED BY MD VILLEGAS AND A NEUROLOGIST, 5 KYPHOPLASTIES, 2 CRUSHED VERTEBRAE (T9 AND T11) THAT CANNOT BE REPAIRED, R TKR RESULTED IN R LE NERVE DAMAGE. PATIENT REPORTS PUREWICK USAGE DURING RECENT HOSPITALIZATION DAMAGED HER URINARY SYSTEM. FALLS HISTORY: NO FALLS REPORTED WITHIN PAST 2 YRS. PATIENT LIVES IN A CLUTTERED 3RD FLOOR APARTMENT WITH SON, 4 STEPS WITH RAIL OUTSIDE, 28 STAIRS WITH BILATERAL RAIL INDOORS. PATIENT HAS A CHAIR POSITIONING AT EACH LANDING IN ORDER TO REST. PATIENT'S SON AMBER IS PAID IMAGING CENTER MANAGER 35 HRS/WK. PLOF: USED CANE IN HOME OR FURNITURE SURFED IN HOME, SUPERVISION ON STAIRS WITH SEATED REST BRAKES EACH LANDING CLOF: DME: CANE, LBQC, TRANSPORT WHEELCHAIR, FWW, HANDHELD SHOWERHEAD, TUB CHAIR, GRAB BAR BY TOILET AND BY TUB, FRONT DESK RECEPTIONIST SAFETY RECOMMENDATION: REMOVAL OF OBJECTS OFF FLOOR THAT ARE A TRIPPING HAZARD PATIENT REPORTS 4/10 BACK PAIN AT REST. PATIENT DEMO BILAT LE 1+, EDUC ON EDEMA CONTROL. BILAT LE ROM WFL, BILAT LE STRENGTH 4- TO 4/5. TO INCREASE BILAT LE STRENGTH, PATIENT COMPLETED BILAT LE SEATED THER EXER WITH VERBAL CUES FOR FORM X 10: ANKLE CIRCLES, PLANTAR/DORSIFLEX, HIP FLEX, KNEE EXT. DISPENSED HEP SHEETS. NOT ABLE TO COMPLETE BED MOBILITY ASSESSMENT PATIENT REFUSED TO ALLOW THIS THERAPIST TO VIEW BEDROOM. PATIENT ABLE TO COMPLETE SIT-->STAND FROM RECLINER WITHOUT AD WITH SUPERVISION, VERBAL CUES TO INCREASE HIP EXT. PATIENT AMB 50' WITHOUT AD WITH OCCASIONAL HAND SUPPORT, DEMO FORWARD FLEXED POSTURE, BILAT RECIPROCAL STEPS WITH FOOT FALT AT INITIAL CONTACT, 0 LOB. TINETTI =17/28, FALL RISK. PATIENT PRESENTS WITH THE FOLLOWING DEFICITS: BILAT LE EDEMA, CHRONIC BACK PAIN, DECREASED ENDURANCE, RESULTING IN DIFFICULTY WITH TRANSFERS, AMB AND STAIR NEGOTIATION. SKILLED [facility] FREQ 1X4WKS TO ADDRESS DEFICITS, MAX SAFETY AND FUNCTIONAL LEVEL IN HOME ENVIRONMENT WITH THER EXER, ESTABLISH HEP, TRANSFER AND GAIT TRAINING, STAIR NEGOTIATION. PATIENT INFORMED ABOUT PHYSICAL THERAPY POC INCLUDING FREQ, VERBALIZED ACCEPTANCE. MD NOTIFIED ABOUT PATIENT STATUS AND POC.] Goal Patient Goal - WALK BETTER Goal Provider Goal - A PLAN OF CARE WILL BE ESTABLISHED THAT MEETS PATIENT'S CARE HOME NEEDS AND INCLUDES PATIENT GOAL FOR HOME [...] Goal - PATIENT/CAREGIVER WILL VERBALIZE/DEMONSTRATE MANAGEMENT OF RESPIRATORY DISEASE PROCESS. CHANGES IN RESPIRATORY STATUS WILL BE IDENTIFIED AND REPORTED TO PHYSICIAN FOR PROMPT INTERVENTION THROUGHOUT THE CERTIFICATION PERIOD. Goal Provider Goal - A PHYSICAL THERAPY [...] Goal - PATIENT/CAREGIVER WILL VERBALIZE UNDERSTANDING OF MUSCULOSKELETAL DISEASE INCLUDING SIGNS AND SYMPTOMS, MANAGEMENT, AND PRESCRIBED TREATMENT REGIMEN BY END OF EPISODE. Goal Provider Goal - PATIENT WILL [...] THE CERTIFICATION PERIOD. Goal Provider Goal - PHYSICAL THERAPY EVALUATION TO BE COMPLETED WITH RECOMMENDATIONS AND/OR WRITTEN TREATMENT PLAN OF CARE ESTABLISHED FOR THE PHYSICIANS SIGNATURE PATIENT/CAREGIVER VERBALIZES UNDERSTANDING OF THE INITIAL BEST PRACTICE RECOMMENDATIONS. PHYSICIAN TO BE NOTIFIED APPROPRIATE FOR ANY CHANGES OR COMPLICATIONS THROUGHOUT THE CERTIFICATION PERIOD. PATIENT/CAREGIVER WILL PERFORM THERAPEUTIC EXERCISE/S AND DEMONSTRATE PARTICIPATION IN A HOME PROGRAM. PATIENT/CAREGIVER WILL DEMONSTRATE SAFE TRANSFERS USING APPROPRIATE ASSISTIVE DEVICE, BODY MECHANICS AND EQUIPMENT. PATIENT/CAREGIVER WILL DEMONSTRATE IMPROVED GAIT TECHNIQUES TO MINIMIZE RISK OF INJURY. PATIENT/CAREGIVER WILL DEMONSTRATE/VERBALIZE UNDERSTANDING OF RECOMMENDATIONS TO INCREASE SAFETY IN THE HOME AND FALL PREVENTION. INCREASED PAIN OR INEFFECTIVE PAIN CONTROL MEASURES WILL BE IDENTIFIED AND PROMPTLY REPORTED TO THE PHYSICIAN. PATIENT/CAREGIVER WILL DEMONSTRATE EFFECTIVE PAIN MANAGEMENT. PATIENT/CAREGIVER WILL DEMONSTRATE IMPROVED BALANCE AND REDUCE THE RISK OF FALLS AND INJURY. Encounters Start Date/Time End Date/Time Encounter Type Admission Type Attending [facility] Facility Care Department Encounter ID Discharge Date Discharge Status Discharge Condition Discharge Reason Percent Goals Met 2024-09-21 00:00:00 2024-11-19 00:00:00 Outpatient NEW ADMISSION [facility] ED [id number] 18.75
[2024-10-20 16:17] LABS: MANUAL DIFF FLAG NO
[2024-10-20 17:08] LABS: Basophils Absolute Auto 0.1 X10*3/uL (0.0-0.2); Basophils Percent Auto 0.8 % (0-2); Eosinophils Absolute Auto 0.3 X10*3/uL (0.0-0.4); Eosinophils Percent Auto 4.1 % (0-4); Hematocrit 36.5 % (37.0-47.0); Hemoglobin 11.8 g/dl (12.0-16.0); Imm Gran Abs Auto 0.04 X10*3/uL (0.00-0.03); Imm Gran Pct Auto 0.5 % (0.0-0.4); Lymphocytes Absolute Auto 1.4 X10*3/uL (1.2-4.9); Mean Corpuscular HGB Conc 32.3 g/dl (31.0-35.0); Mean Corpuscular Hemoglobin 28.7 pg (27.0-33.0); Mean Corpuscular Volume 88.8 fL (80.0-98.0); Mean Platelet Volume 9.9 fL (9.4-12.3); Monocytes Absolute Auto 0.5 X10*3/uL (0.1-1.2); Neutrophils Absolute Auto 5.3 x10*3/uL (2.0-8.3); Neutrophils Percent Auto 69.6 % (45-73); Platelet Count 190 X10*3/uL (160-400); Red Blood Count 4.11 X10*6/uL (4.20-5.50); Red Cell Distribution Width 13.5 % (11.0-16.0); White Blood Count 7.6 X10*3/uL (4.8-10.8)
[2024-10-20 17:11] LABS: Prothrombin Time 11.9 SEC (10.9-12.4)
[2024-10-20 17:30] LABS: Anion Gap 10 (12-20); Blood Urea Nitrogen 16 mg/dL (9-16); Calcium 9.2 mg/dL (8.4-10.2); Carbon Dioxide 29 mmol/L (22-29); Chloride 103 mmol/L (96-108); Estimated Glomerular Filt Rate > 60; Glucose Random 81 mg/dL (60-115); Potassium 4.4 mmol/L (3.3-5.1); Sodium 138 mmol/L (135-145)
== END 2024-10-20 16:03 | disposition home or self-care (01) ==
LOC: HO.LAB 16:02
PROVIDERS: Absent Provider Internal Medicine Cardiovascular Disease; PCP Internal Medicine; Visit Provider Internal Medicine Cardiovascular Disease
DX: I48.91 Unspecified atrial fibrillation (principal)
CPT/HCPCS: 36415; 80048; 85025; 85610

== ENCOUNTER 2024-11-22 14:18 | Outpatient (AMB) | payer MEDICARE, MEDICAID, SELFPAY ==
--- OUTSIDE RECORDS SUMMARY | 2024-11-21 21:25 | XMS_ITS | Encounter Summary ---
Author Organization [facility] [place] [address] Care Team Providers Care Medical Record Specialist Name Role Phone Negrita Bains MD Primary Care Provider [phone] Encounter Details Date Type Department Care Team (Late st Contact Info) Description 11/21/2024 9:25 PM EDT Ancillary Procedure [facility] [address] [facility] [address] [place] [phone] Arrived Social History Tobacco Use Types Packs/Day Years Used Date Smoking Tobacco: Former Passive Smoke Exposure: Never Smokeless Tobacco: Never Alcohol Use Standard Drinks/Week Comments No 0 (1 standard drink = 0.6 oz pur e alcohol) Comments Unknown Sex and Gender Information Value Date Recorded Sex Assigned at Female 10/24/2024 12:49 PM EDT Legal Sex Female 7:28 PM EST Gender Identity Not on file Sexual Orientation Not on file documented as of this encounter Plan of Treatment Upcoming Encounters Date Type Department Care Team (Late Contact Info) Description 12/13/2024 3:00 PM EDT Office Visit Neurosurgery [facility] [address] [facility] [address] [place] [phone] Michael Sweet PA 175 [facility] [address] [place] [address] 12/14/2024 3:45 PM EDT Office Visit Pulmonolgy - [place] [address] [facility] [address] [place] [phone] Rosa M Ellsworth MD [address] [facility] [address] [place] [address] 01/11/2025 11:00 AM EDT Ancillary Procedure [facility] - [facility] [address] [facility] [address] [place] [address] 04/11/2025 8:40 AM EST Office Visit [facility] [address] [facility] [address] [place] [phone] Mich Montiel NP [address] [place] [address] Scheduled Procedures Name Priority Associated Diagnoses Date/Ti me LOOP RECORDER INSERTION Atrial fibrillation, unspecified type (CMS/HCC V24, CMS/HCC V28) documented as of this encounter Procedures Procedure Name Priority Date/Time Associated Diagnosis Comments CARDIAC DEVICE CHECK- REMOTE- MURJ Routine 11/21/2024 9:23 PM EDT documented in this encounter Results * Cardiac device check - Remote- MURJ (11/21/2024 9:23 PM EDT) Date Time Interrogation Session [id number] CV DEVICE CHECK Type Interrogation Session Remote Scheduled CV DEVICE CHECK Implantable Pulse Generator Bilingual Customer Service Specialist BSX CV DEVICE CHECK Implantable Pulse Generator Type ILR CV DEVICE CHECK Implantable Pulse Generator Model [id number] CV DEVICE CHECK Implantable Pulse Generator Serial Number [id number] CV DEVICE CHECK Implantable Pulse Generator Implant Date 20241028 CV DEVICE CHECK Battery Status Beginning of Service CV DEVICE CHECK Atrial Tachy Statistic AT/AF [place] Percent 0.00 CV DEVICE CHECK Date of Service 2024-11-27 CV DEVICE CHECK Anatomical Region Laterality Modality Device Interroga tion 11/18/2024 12:2 4 AM EDT Impressions 11/21/2024 7:36 AM EDT Normal Remote: No Events * This is a normal remote diagnostic device check * Alerts or events: None * Battery data was reviewed * Battery status: ELDON, * Presenting rhythm reviewed * Heart Rate Histograms reviewed Additional Notes: Pause was false. Lack of connection during implant Narrative Procedure Note Parish Moragn MD - 11/21/2024 IMPRESSION: Normal Remote: No Events * This is a normal remote diagnostic device check * Alerts or events: None * Battery data was reviewed * Battery status: ELDON, * Presenting rhythm reviewed * Heart Rate Histograms reviewed Additional Notes: Pause was false. Lack of connection during implant us Parish Morgan MD CV IMPLANTABLE CARDIAC DEVICE PROCEDURES Final Result documented in this encounter Visit Diagnoses Not on filedocumented in this encounter Care Teams Medical Record Specialist Relationship Specialty Start Date End Date Negrita Bains MD [address] [place] [address] PCP - General Internal Medicine 08/01/24 documented as of this encounter
--- NOTE | 2024-11-22 14:20 | MHC.OFFWIV ---
Intake Vital Signs 11/22/24 14:28 Height 5 ft Weight 188 lb BMI 36.7 BP 130/72 Blood Pressure Location Lt brachial Position Sitting Pulse 53 Pulse Source Pulse Oximeter Pulse Oximetry (%) 95 Oxygen Delivery Method Room Air Intake Visit Reasons: EP-uti, rt side kidney pain Intake Note: pt presents with RT sided flank pain, cloudy urine with foam, discomfort with voiding, pain to uretha, abdominal discomfort Patient Tobacco Use Status: Former Tobacco user Allergies adhesive (ADHESIVE) Allergy (Unknown, Verified 11/22/24 14:21) LOCAL REACTION melatonin Allergy (Verified 11/22/24 14:21) PYSCHOSIS blue dye Adverse Reaction (Verified 11/22/24 14:21) Diarrhea Do you need a note to return to daycare/school/sports/work: No HPI HPI Comments History of Present Illness Details History - The patient is a 73-year-old female here with her son presenting with pain with urination and low back pain. - The patient reports a few days of pain with urination, but not burning. no increase of frequency of urination. - Denies fevers. 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 - The patient experiences low back pain and recently received an injection, but still reports pain above the waistline. - The patient's heart rate is recorded at 55 bpm, consistent with the last five recordings. Denies dizziness or lightheadedness Physical Exam General: Cooperative, healthy appearing, comfortable, no acute distress and well developed Orientation: Patient oriented x3 Limitations: No limitations Head: Normal to inspection Ears: Hearing grossly normal bilaterally Face and sinus: Normal facial exam Neck: Normal visual inspection and Yes full ROM Respiratory: Normal respiratory effort and able to speak in complete sentences. Skin: No rashes or lesions noted Neuro: Patient oriented x3 Back/spine: negative CVA bilaterally PFSH Medical History Memory loss, short term Carpal tunnel syndrome on both sides Cataract CHF exacerbation History of stroke Abnormal colonoscopy (~04/03/22) Wheezing Anemia Urinary incontinence Right carpal tunnel syndrome Post cardiotomy syndrome PTSD (post-traumatic stress disorder) Osteoarthritis, hip, bilateral Interstitial cystitis Lipid disorder Insomnia Generalized anxiety disorder with panic attacks Major depression, recurrent History of ulcerative colitis Chronic GERD Diastolic congestive heart failure Paroxysmal atrial fibrillation Age related osteoporosis Asthma, moderate persistent Anticoagulant long-term use Iron deficiency anemia Establishing care with new doctor, encounter for Hypertension, essential Surgical History Hx of tonsillectomy Hx of colonoscopy Hx of rotator cuff surgery History of arthroplasty of both knees Hx of hysterectomy Status post mitral valve replacement Status post aortic valve replacement History of kyphoplasty History of artificial heart valve Family History Daughter Mental health disorder Substance use disorder Father Emphysema lung Mother Heart disease Stroke Pacemaker Arthritis Family/Other Colon cancer Sister Crohn's disease Social History Household Members: Family Household Members Other:: son Housing: House Are you a primary before and after school daycare worker to a significant other at home: No Do you presently have visiting nurse or other home services: No Alcohol intake: never Patient Tobacco Use Status: Former Tobacco user e-Cigarette/Vaping Use: Never Used Substance Use Type: Marijuana Advance Directives Date on File: 03/18/22 service: No Current occupational status: retired Cognitive needs: No Hearing needs: No Vision needs: Yes Review of Systems Const All systems reviewed & are unremarkable except as noted in HPI and below Physical Exam Vital Signs: Last Vital Signs Pulse 53 11/22/24 14:28 BP 130/72 11/22/24 14:28 Pulse Ox 86 L 11/22/24 14:28 Oxygen Delivery Method Room Air 11/22/24 14:28 BMI result Body Mass Index 36.7 Assessment & Plan Assessment & Plan (1) Dysuria: Code(s): R30.0 - Dysuria Plan: Patient was informed and verbally consented to the use of an ambient scribe for clinic note documentation during this visit. Urinary Tract Infection (Uti) - Urinalysis shows 3 plus leukocytes and 1 plus blood. - A urine culture was ordered to identify the causative organism. - Cefuroxime was prescribed for five days, to be taken twice daily. - The patient was advised to avoid her proton pump inhibitor (PPI) during this treatment and to use TUMS as an alternative. (2) Bradycardia: Code(s): R00.1 - Bradycardia, unspecified Plan: Bradycardia - The patient was advised to inform her machine plug shaper about her heart rate for potential medication adjustment. - The patient is being monitored with a loop recorder. Orders: Orders Urine Culture Today R30.0 - Dysuria Medications: New cefuroxime axetil 500 mg PO Q12H 10 tabs 0RF Coding Level of Care Code Est Pt Level 3 (00710) Diagnoses Dysuria R30.0 Bradycardia R00.1
[2024-11-22 14:28] VITALS: BP 130/72; PULSE 53; O2SAT 95; BMI 36.7
--- OUTSIDE RECORDS SUMMARY | 2024-11-22 15:28 | XMS_ITS | Data Portability ---
Author Organization [place] - [facility], Allergy Address [address] [address] Care Team Providers Care Tool Repairer Bench Name Role Phone MARYANNE VALENTIN Primary Care Provider [phone] Assessment Encounter Date Assessment Date Assessment LastModified by Organization Details LastModified Time 09/06/2024 09/06/2024 Audiometric testing today continues to show bilateral hearing loss which should be amenable to amplification. I have given her a copy of her audiogram, medical clearance for amplification and the names of a couple of local audiologists who can program [facility] devices. Not available 09/06/2024 15:10:47 Plan of [...] Details Recorded Time Postmasto idectomy complicat ion 68950142 Active 2023 Other disorders following mastoidec ioana, left ear; Note: Date Diagnosed : 06/10/2023 1:36 PM (H95.192) Not Available [facility] 02:30:20 Impacted cerumen of bilateral ears 50856860036 22890 Active 2021 Impacted cerumen, bilateral ; Note: Changed from H61.22 to H61.23 ( 4 1:42 PM) , Date Diagnosed : 11/05/2021 3:17 PM (H61.22) Not Available [facility] 4 02:30:29 Mixed conductiv e and sensorine ural hearing loss of left ear 38328809157 107 Active 2018 Mixed conductiv e and sensorine ural hearing loss, unilatera l, left ear with restricte d hearing on the contralat eral side; Note: Date Diagnosed : 12/08/2018 2:17 PM (H90.A32) Not Available [facility] 4 02:30:22 Sensorine ural hearing loss in right ear 02685926389 100 Active 2018 Sensorine ural hearing loss, unilatera l, right ear, with restricte d hearing on the contralat eral side; Note: Date Diagnosed : 12/08/2018 2:17 PM (H90.A21) Not Available [facility] 4 02:30:18 Severe obesity 06284039330 104 Active 2023 Morbid (severe) obesity due to excess calories; Note: Date Diagnosed : 08/03/2023 2:28 PM (E66.01) Not Available [facility] 4 02:30:13 Asthma 450664304 Active 2023 Other asthma; Note: Date Diagnosed : 08/03/2023 2:25 PM (J45.998) Not Available [facility] 4 02:30:20 Dysphonia 65176174 Active 2023 Hoarsenes s; Note: Date Diagnosed : 08/03/2023 2:25 PM (R49.0) Not Available [facility] 4 02:30:25 Dysphagia 77995271 Active 2023 Dysphagia , pharyngoe sophageal phase; Note: Date Diagnosed : 08/03/2023 2:25 PM (R13.14) Not Available [facility] 4 02:30:29 Problem Notes None recorded. Procedures Surgical History Date Name Laterality Status Provider Name and Address Organization Details Recorded Time Air & Speech Audio with Tymps - 02023, 32598 & 75728 completed CARSON ALCALA 100 [facility],[address], [address], [facility] - [facility] 09/06/2024 15:23:19 Debridement of Mastoid Cavity left completed ALBERTO FAJARDO MD 100 [facility],[address], [address], [facility] - [facility] 09/06/2024 15:08:30 Imaging Results None recorded. Procedure Notes None recorded. Medical Equipment None Reported. Allergies Allergen ID Allergen Name Allergen Category Reaction Reaction Severity Criticality Documentation Date Start Date Code Code System Note Provider Name and Address Organization Details Recorded Time 054816 adhesive tape environme nt,medica tion Not available Not available Not available 09/06/2024 12321 UNK Cris [facility] 14:49:32 Medications Name Sig Start Date Stop Date Status Note LastModified by Organization Details LastModified Time furosemid e 40 mg tablet 06/10 completed Medicati on ID: [id number] B rand Name: furosemi de Send Method: E-Prescr ibed Sub s Allowed: subs OK Medic ationGen ericName : furosemi de Not Available Not Available Not Available torsemide 20 mg tablet active Medicati on ID: [id number] B rand Name: torsemid e Send Method: E-Prescr ibed Sub s Allowed: subs OK Speci al Instruct ion: TAKE ONE TABLET BY MOUTH EVERY DAY Medi cationGe nericNam e: torsemid e Not Available Not Available Not Available tizanidin e 2 mg tablet 06/10 completed Medicati on ID: [id number] B rand Name: tizanidi ne Send Method: [...] mg tablet 06/10 completed Medicati on ID: [id number] B rand Name: quetiapi ne Send Method: E-Prescr ibed Sub s Allowed: subs OK Medic ationGen ericName : quetiapi ne Not Available Not Available Not Available potassium chloride ER 10 mEq tablet,ex tended release TAKE ONE TABLET BY MOUTH EVERY DAY active Not Available Not Available No t Available trimethop rim 100 mg tablet 06/10 completed Medicati on ID: [id number] B rand Name: trimetho prim Sen d [...] eye drops 09/06 completed Medicati on ID: [id number] D uration Value: 14 Prescri bed By [...] mg tablet 06/10 completed Medicati on ID: [id number] B rand Name: tramadol Send Method: E-Prescr [...] dental solution 09/06 completed Medicati on ID: [id number] B rand Name: PreviDen t Send Method: [...] mg capsule 06/10 completed Medicati on ID: [id number] B rand Name: nitrofur antoin macrocry stal [...] mg tablet 06/10 completed Medicati on ID: 718375 B rand Name: mirtazap ine Send Method: E-Prescr ibed Sub s Allowed: subs OK [facility] : mirtazap ine Not Available Not [...] mg tablet 06/10 completed Medicati on ID: [id number] B rand Name: zolpidem Send Method: E-Prescr ibed Sub s Allowed: subs OK Medic ationGen ericName : zolpidem Not Available Not Available Not Available Vitamin D2 1,250 mcg (50,000 unit) capsule 2018 active Medicati on ID: 989491 B rand Name: Vitamin D2 Send Method: E-Prescr ibed Sub s Allowed: subs OK Speci al Instruct ion: TAKE ONE CAPSULE BY MOUTH ONCE WEEKLY Uzma Blakeoriana Name: Vitamin D2 Not Available Not Available [...] mg tablet 06/10 completed Medicati on ID: 186074 B rand Name: Jantoven Send Method: E-Prescr ibed Sub s Allowed: subs OK Speci al Instruct ion: TAKE 1-2 TABLETS BY MOUTH DAILY DIRECTED BY DILLON Potts me: Jantoven Not Available Not Available [...] delayed release 06/10 completed Medicati on ID: [id number] B rand Name: Dexilant Send Method: E-Prescr ibed Sub s Allowed: subs OK Medic ationGen ericName : Dexilant Not Available Not Available Not Available Myrbetriq 25 mg tablet,ex tended release active Medicati on ID: [id number] B rand Name: Myrbetri q Send Method: E-Prescr ibed Sub s Allowed: subs OK Medic ationGen ericName : Myrbetri q Not Available Not Available Not Available Eliquis 5 mg tablet TAKE ONE TABLET BY MOUTH TWICE A DAY 09/06 completed Not Available Not Available Not Available Breo Ellipta 100 mcg-25 mcg/dose powder for inhalatio n 09/06 completed Medicati on ID: [id number] B rand Name: Breo Ellipta Send Method: [...] SNOMED-CT Code Diagnosis ICD10 Code Diagnosis Note [id number] ALBERTO FAJARDO MD [facility] [address] [address] 09/06/2024 14:30:24 09/06/2024 15:27:53 Postmastoidectomy complication [id number] H95.192 Left canal wall down mastoidect anh was debrided of accumulate d squamous debris. No signs of acute or chronic inflammati on. No signs of prosthesis dislodgmen t or other mobile anomalies. Follow-up in 1 year for next mastoid debridemen t Mixed cond uctive and sensorineural hearing loss of left ear [id number] 9107 H90.A32 Sensorineu ral hearing loss in right ear 9957543579 9100 H90.A21 Right Ear:Modera tely-sever e SNHL with good speech discrimina tion.Type A tympanogra m.Left Ear:Modera te to severe MHL with good speech discrimina tion.Type B tympanogra m. [id number] CARSON ALCALA [facility] [address] [address] 09/06/2024 15:15:11 09/12/2024 11:27:39 Mixed conductive and sensorineural hearing loss of left ear 6848928463 9107 H90.A32 Sensorineu ral hearing loss in right ear 8180070569 9100 H90.A21 Right Ear:Modera tely-sever e SNHL [...] ID Guarantor Name 08/31/2024 1 [place]IC[place] B-[place]: [employer] Yaneth Rodriguez [id number] Yaneth Rodriguez 08/31/2024 2 [place] [facility] Yaneth Rodriguez [id number] Yaneth Rodriguez Notes Date Note Type Note Provider Name and Address Organization Details Recorded Time 09/06/2024 text/html Patient with left-sided canal wall down mastoidectomy cavity comes in for mastoid debridement. Patient has hearing loss amenable to amplification. At her last visit she told me that she was gifted a pair of Sofiya hearing aids. I recommended she meet with a local motor vehicle technician to have the hearing aids adjusted to match her hearing aids. She lost this paperwork and wants to have her hearing test updated so that she can have the hearing aids adjusted. No recent pain or discharge. She feels like something is knocking around in there in the left ear. ALBERTO FAJARDO MD [address] [place] [address], [place], [address], [facility] - [facility] 09/06/2024 16:02:07 OBGyn Episode No OBEpisode recorded.
== END 2024-11-22 15:32 | disposition home or self-care (01) ==
PROVIDERS: PCP Internal Medicine; Visit Provider Physician Assistant
DX: R30.0 Dysuria (principal); R00.1 Bradycardia, unspecified

== ENCOUNTER 2024-11-22 14:18 | Outpatient (REF) | payer MEDICARE, MEDICAID, SELFPAY | END 2024-11-22 14:19 | disposition home or self-care (01) | LOC: HO.LAB 14:18 | PROVIDERS: PCP Internal Medicine | DX: R30.0 Dysuria (principal) | CPT/HCPCS: 87086; 99212 ==

== ENCOUNTER 2025-01-04 14:00 | Outpatient (REF) | payer MEDICARE, MEDICAID, SELFPAY ==
--- OUTSIDE RECORDS SUMMARY | 2025-01-04 14:23 | XMS_ITS | Clinical Summary ---
Author Organization [facility] Address [address] [place] [address] Phone Care Team Providers Care Molecular Biology Scientist Name Role Phone Negrita Bains MD Primary Care Provider [phone] Allergies Active Allergy Reactions Criticality Noted Date [...] 20 mg tablet 1 Tab daily. Active gabapentin (NEURONTIN) 100 mg capsule 3 capsules (300 mg total). Active LORazepam (ATIVAN) 1 mg tablet 1 [...] a day. 180 tablet 2 5 Active umeclidinium-v ilanteroL (Anoro Ellipta) 62.5-25 mcg/actuation inhaler Inhale 1 puff by mouth 1 (one) time each day. 1 each 11 5 08/27/19 26 Active umeclidinium brm/vilanterol tr (ANORO ELLIPTA INHL) Inhale by mouth. Active amLODIPine (NORVASC) 5 mg tablet Take 1 tablet (5 mg total) by mouth 1 (one) time each day. 90 tablet 3 5 Active losartan (COZAAR) 50 mg tablet Take 1 tablet (50 mg total) by mouth 1 (one) time each day. 90 tablet 3 5 Active torsemide (DEMADEX) 20 mg tablet TAKE TWO TABLETS BY MOUTH EVERY DAY 180 tablet 1 5 Active losartan (COZAAR) 50 mg tablet Take 0.5 tablets (25 mg total) by mouth 1 (one) time each day. 12/09/19 25 Discontin ued(Reord er) amLODIPine (NORVASC) 5 mg tablet Take 1 tablet (5 mg total) by mouth 1 (one) time each day. 12/09/19 25 Discontin ued(Reord er) Active Problems Problem Noted Date Diagnosed Date CVA (cerebral vascular accident) ([facility] V24, [facility] V28) 09/27/2024 Asthma 10/14/2022 Back pain 10/14/2022 Chronic interstitial cystitis 10/14/2022 Osteoporosis 10/14/2022 Pleural effusion, right 10/14/2022 Post-pericardiotomy syndrome 10/14/2022 Posttraumatic stress disorder 10/14/2022 Sacroiliitis ([facility] V24) 10/14/2022 Overview (04/12/2024): Last Assessment & Plan: Ms. Miranda was seen in follow-up. She had an [...] & Plan (09/01/2024 4:30 PM EDT): Ms. Miranda describes right sided low back or buttock [...] can follow-up with us afterwards. Severe obesity ([facility] V24, [facility] V28) 2022 Ulcerative colitis ([facility] V24, [facility] V28) (HFpEF) heart failure with p reserved ejection fraction ([facility] V24, [facility] V28) 06/17/2022 Overview (08/30/2024): Assessment [...] review. Wedge fracture of thoracic v ertebra ([facility] V24, [facility] V28) 01/24/2021 Atrial fibrillation ([facility] V24, [facility] V28) 0 11/19/2020 Overview (08/30/2024): previously anticoagulated with Coumadin but has had complications of severe hematuria in the past; is very uncertain based on our lack of access to [facility] records how much A-fib she truly has -Admitted at [facility] in August 2019 for for both [...] continue baby aspirin. - Request results from [facility]. - Will try to communicate with [...] mild prosthetic aortic stenosis. Echocardiogram done at [facility]. - Request results from [facility]. Hypertension 08/16/2020 Overview (04/12/2024): Last Assessment [...] repeat her echocardiogram. Fracture of thoracic spine ([facility] V24, [facility] V28) 05/26/2018 Osteoarthritis of knee 04/12/2018 Gastroesophageal reflux disease without esophagi tis 04/12/2018 Resolved Problems Problem Noted Date Diagnosed Date Resolved Date Chronic diastolic heart fail ure ([facility] V24, [facility] V28) 10/14/2022 08/30/2024 Congestive heart failure ([facility] V24, [facility] V28) 11/15/2020 08/30/2024 Overview (04/12/2024): [...] Encounters Date Type Department Care Team Description 12/27/2024 6:20 PM EDT Ancillary Procedure [facility] [place] [facility] Cardiology [facility] [address] [place] [address] 11/21/2024 9:25 PM EDT Ancillary Procedure [facility] [address] [place] [address] 11/09/2024 12:08 PM EDT - 11/09/2024 11:59 PM EDT Hospital Encounter [facility] Interventional Radiology [address] [place] [address] Sacroiliitis (CMS/HCC V24) Discharge Disposition: Home or Self Care 11/01/2024 3:50 PM EDT Ancillary Procedure [facility] [address] [place] [address] 10/28/2024 11:00 AM EDT - 10/28/2024 11:30 AM EDT Surgery [facility] Cardiac [facility] [address] [place] [address] Parish Morgan MD Loop recorder insertion [64419 (CPT )] 10/28/2024 9:54 AM EDT - 10/28/2024 12:03 PM EDT Hospital Encounter [facility] Cardiac [facility] [address] [place] [address] Parish Morgan MD Paroxysmal atrial fibrillation (CMS/HCC V24, CMS/HCC V28) Discharge Disposition: Home or Self Care 10/24/2024 Telephone [facility] [place] [facility] Cardiology [facility] [address] [place] [address] Madeline Espinosa MD Lab Results (Faxed a copy of labs to pcp ) from Last 3 Months Immunizations Name [...] Macular degeneration Anemia Congestive heart failure (CHF) ([facility] V24, [facility] V28) Ulcerative colitis ([facility] V24, [facility] V28) Asthma Back pain Anxiety [...] Sign Reading Time Taken Comments Blood Pressure 136/63 11/09/2024 3:00 PM EDT Pulse 58 11/09/2024 3:00 PM EDT Temperature 36.6 C (97.9 F) 11/09/2024 12:43 PM EDT Respiratory Rate 20 11/09/2024 12:43 PM EDT Oxygen Saturation 96% 11/09/2024 3:00 PM EDT Inhaled Oxygen Concentration - - Weight 88 kg (194 lb) 11/09/2024 12:43 PM EDT Height 152.4 cm (5') 11/09/2024 12:43 PM EDT Body Mass Index 37.89 11/09/2024 12:43 PM EDT Plan of Treatment Upcoming Encounters Date Type Department Care Team (Late st Contact Info) Description 04/11/2025 8:40 AM EST Office Visit [facility] [place] [facility] [address] [facility] [address] [place] [id number] Mich Montiel NP [address] [place] [address] Scheduled Procedures Name Priority Associated Diagnoses Date/Ti me LOOP RECORDER INSERTION Atrial fibrillation, unspecified type ([facility] V24, [facility] V28) Health Maintenance Due Date Last Done Comments DTaP,Tdap,and Td Vaccines (1 - Tdap) 12/23/1967 Pneumococcal Vaccine: 50+ Years (1 of 2 - PCV) 12/23/1967 Zoster Vaccines (1 of 2) 1998 Falls Risk Assessment 05/03/2022 Hepatitis C Screening 05/03/2022 Medicare Annual Wellness Visit 05/03/2022 Osteoporosis Screening (Bone Density Screening) 05/03/2022 Social Influencers of Health Screening 05/03/2022 RSV Immunization Adult Patients (1 - 1-dose 75+ series) 12/23/2023 COVID-19 Vaccine ( season) 2024 03/28/2021, 09/24/2020, 08/27/2020 Hypertension/CHF/CAD Annual BMP Blood Test 02/27/2024 02/26/2023, 02/26/2023 Depression Screening 05/25/2024 Influenza Vaccine (#1) 2025 2, 03/06/2021, 03/10/2020, Additional history exists Cholesterol Screening [...] on patient's age to complete this topic Medical Devices Implanted Type Area Strategic Intelligence Officer Device Identifier Shelf Expiration Date Model / Serial / Lot Monitor Cardiac Insert Lux Dx Ii+ - [id number] - [id number] Implanted:Qty: 1 on 10/28/2024 by Parish Morgan MD at [facility] Cardiac Loop Recorder N/A: Chest [employer] MGMT [id number] 01/03/2026 [id number] / [id number] / Procedures Procedure Name Priority Date/Time Associated Diagnosis Comments CARDIAC DEVICE CHECK- REMOTE- MURJ Routine 12/27/2024 6:16 PM EDT CARDIAC DEVICE CHECK- REMOTE- MURJ Routine 11/21/2024 9:23 PM EDT IR INJ ANES/STEROID NERVE SACROILIAC JOINT RIGHT Routine 11/09/2024 2:03 PM EDT Sacroiliitis (CMS/HCC V24) CARDIAC DEVICE CHECK- REMOTE- MURJ Routine 11/01/2024 3:45 PM EDT LOOP RECORDER INSERTION Routine 10/28/2024 11:08 AM EDT Paroxysmal atrial fibrillation (CMS/HCC V24, CMS/HCC V28) EXTERNAL CLINICAL LAB Routine 10/20/2024 10:38 AM EDT HM ANNUAL BMP BLOOD TEST Routine 02/26/2023 LIPID PANEL Routine 06/26/2021 from Last 3 Months or Most Recently Relevant to Health Maintenance Results * Cardiac device check - Remote- MURJ (12/27/2024 6:16 PM EDT) Only the most recent of3 resultswithin the time period is included. Date Time Interrogation Session [id number] CV DEVICE CHECK Type Interrogation Session Remote Scheduled CV DEVICE CHECK Implantable Pulse Generator Strategic Intelligence Officer BSX CV DEVICE CHECK Implantable Pulse Generator Type ILR CV DEVICE CHECK Implantable Pulse Generator Model M312 CV DEVICE CHECK Implantable Pulse Generator Serial Number [id number] CV DEVICE CHECK Implantable Pulse Generator Implant Date 20241028 CV DEVICE CHECK Battery Status Beginning of Service CV DEVICE CHECK Atrial Tachy Statistic AT/AF [place] Percent 0.00 CV DEVICE CHECK Date of Service 2024-12-28 CV DEVICE CHECK Anatomical Region Laterality Modality Device Interroga tion 12/19/2024 12:2 8 AM EDT Impressions 12/27/2024 3:47 PM EDT Normal Remote: No Events * This is a normal remote diagnostic device check * Alerts or events: None * Battery data was reviewed * Battery status: ELDON, * Presenting rhythm reviewed * Heart Rate Histograms reviewed Narrative Procedure Note Parish Morgan MD - 12/27/2024 IMPRESSION: Normal Remote: No Events * This is a normal remote diagnostic device check * Alerts or events: None * Battery data was reviewed * Battery status: ELDON, * Presenting rhythm reviewed * Heart Rate Histograms reviewed us Parish Morgan MD CV IMPLANTABLE CARDIAC DEVICE PROCEDURES Final Result * IR Inj Anes/Steroid Nerve Sacroiliac Joint Right (11/09/2024 2:03 PM EDT) Anatomical Region Laterality Modality Right Interventional R adiology 11/09/2024 2:46 PM EDT Impressions 11/10/2024 12:08 PM EDT Right-sided CT-guided SI joint injection. -------- FINAL REPORT -------- Dictated By: Pat Real Dictated Date: 11/09/2024 14:46 ET Assigned Physician: Esther Mathews Reviewed and Electronically Signed By: Esther Mathews Signed Date: 11/10/2024 12:08 ET Workstation ID: [id number] Transcribed By: Self Edit Transcribed Date: 11/09/2024 14:48 ET Resident/PA/RESIN PAINTER: Pat Real Narrative 11/10/2024 12:08 PM EDT INDICATION: Right SI joint pain PROCEDURE: Right CT-guided SI joint injection under conscious sedation MEDICATIONS: Local anesthesia: 5 cc of 1% buffered lidocaine administered subcutaneously. Sedation: Moderate intravenous sedation was initiated and maintained for 15 minutes while the patient was independently monitored by the radiology nurse under the supervision of the interventional radiologist. A total of 1 mg of Versed and 50 mcg of fentanyl administered during the procedure. Other: 80 mg of Depot Medrol mixed with 2 mL of bupivacaine TECHNIQUE: Informed consent obtained. Patient placed CAMEROONIAN on the CT scan table and multiple axial images obtained of the pelvis for localization. After localization the site was draped and prepped sterilely. Timeout performed followed by administration of local anesthetic. Under CT fluoroscopic guidance a 22-gauge needle was advanced into the posterior aspect of the inferior SI joint. FINDINGS: Initial axial images obtained for localization. CT fluoroscopic images confirm needle positioning within the posterior aspect of the localized joint. Procedure Note Esther Mathews MD - 11/10/2024 INDICATION: Right SI joint pain PROCEDURE: Right CT-guided SI joint injection under conscious sedation MEDICATIONS: Local anesthesia: 5 cc of 1% buffered lidocaine administeredsubcutaneously. Sedation: Moderate intravenous sedation was initiated and maintained for15 minutes while the patient was independently monitored by the radiologynurse under the supervision of the interventional radiologist. A total of1 mg of Versed and 50 mcg of fentanyl administered during the procedure. Other: 80 mg of Depot Medrol mixed with 2 mL of bupivacaine TECHNIQUE: Informed consent obtained. Patient placed CAMEROONIAN on the CT scantable and multiple axial images obtained of the pelvis for localization.After localization the site was draped and prepped sterilely. Timeoutperformed followed by administration of local anesthetic. Under CTfluoroscopic guidance a 22-gauge needle was advanced into the posterioraspect of the inferior SI joint. FINDINGS: Initial axial images obtained for localization. CT fluoroscopicimages confirm needle positioning within the posterior aspect of thelocalized joint. IMPRESSION: Right-sided CT-guided SI joint injection. -------- FINAL REPORT -------- Dictated By: Pta Real Dictated Date: 11/09/2024 14:46 ET Assigned Physician: Esther Mathews Reviewed and Electronically Signed By: Esther Mathews Signed Date: 11/10/2024 12:08 ET Workstation ID: [id number] Transcribed By: Self Edit Transcribed Date: 11/09/2024 14:48 ET Resident/PA/RESIN PAINTER: Pat Real us Michael BARRAGAN IMG IR PROCEDURES Final Resul t * LOOP RECORDER INSERTION (10/28/2024 11:08 AM EDT) Anatomical Region Laterality Modality X-Ray Angiograph y Narrative 11/03/2024 8:26 AM EDT Successful placement of an implantable loop recorder Study Details This patient is an ILR for A-fib management as she has had multiple strokes and relative contraindications to anticoagulation. Procedure Details Procedure: Insertion of an implantable loop recorder Indication: Cryptogenic stroke with question of atrial fibrillation Handkerchief Maker: Parish Morgan MD Device implanted: eWave Interactive Lux DX II model number M312 serial #[id number], R wave 0.3 mV Procedure detail: After obtaining written informed consent the patient was brought to prep and recovery at [facility]. She was prepped in usual sterile fashion. I injected 1% lidocaine with epinephrine at the third intercostal space just left of the sternum. The implantable loop recorder was injected subcutaneously using the introducer device in a standard fashion. Manual compression was used for hemostasis and a small amount of Dermabond placed over the 1 cm incision. There were no immediate complications and the patient was discharged in good condition Impression: Successful implantation of a implantable loop recorder. Result [facility] Parish Morgan MD CV ELECTROPHYSIOLOGY PROCEDURE S Final Result * External clinical lab (10/20/2024 10:38 AM EDT) Result [facility] Historical Provider LAB BLOOD ORDERABLES Alba l Result * Annual BMP Blood Test (02/26/2023) Annual BMP Blood Test abstracted Result [facility] Provider HEALTH MAINTENANCE Final Result * Lipid panel (06/26/2021) LDL/HDL Ratio 2 0 - 4 Triglycerides 146 0 - 150 mg/dL Cholesterol 123 0 - 200 mg/dL HDL 53 >=40 mg/dL LDL Cholesterol 41 0 - 100 mg/dL Blood Venous blood specimen / Unknown Result [facility] Historical Provider LAB BLOOD ORDERABLES Alba l Result from Last 3 Months or Most Recently Relevant to Health Maintenance Insurance MEDICAID - [place] MEDICARE Advance Directives Documents on File Type Date Recorded Patient Deck[employer] [facility] Care Decision (hx) 02/12/2023 DANIEL SANTAMARIA DIRECTIVE Care Teams Molecular Biology Scientist Relationship Specialty Start Date End Date Negrita Bains MD [address] [place] [address] PCP - General Internal Medicine 08/01/24
--- OUTSIDE RECORDS SUMMARY | 2025-01-04 14:23 | XMS_ITS | Clinical Summary ---
Author Organization [facility] Address [address] [place] [id number] Phone Care Team Providers Care Fine Grade Bulldozer Operator Name Role Phone Wellington Manuel MD Primary Care Provider [phone] Allergies Active Allergy Reactions Criticality Noted Date Comments Nsaids (Non-Steroidal Anti-I nflammatory Drug) 10/08/2018 Medications warfarin (COUMADIN) 4 MG tablet Take 4 mg by mouth daily. Active furosemide (LASIX) 10 mg/mL solution Take by mouth daily. Active Social History Tobacco Use Types Packs/Day Years Used Date Smoking Tobacco: Former Alcohol Use Standard Drinks/Week Comments Not Currently 0 (1 standard drink = 0.6 oz pur e alcohol) Education Answer Date Recorded Are you interested in more education? Not on nidhi e 09/19/2022 Are you concerned about learning? Not on file 09/19/2022 No 09/19/2022 No 09/19/2022 Digital Access Answer Date Recorded No 10/18/2022 No 10/18/2022 No 10/18/2022 Reliable internet access at home? Not on file 10/18/2022 Device with a working camera? Not on file Comments Unknown Sex and Gender Information Value Date Recorded Sex Assigned at Female 10/08/2018 2:48 PM EDT Legal Sex Female 2:31 PM EDT Gender Identity Female 10/08/2018 2:48 PM EDT Sexual Orientation Straight 10/08/2018 2: 48 PM EDT Last Filed Vital Signs Vital Sign Reading Time Taken Comments Blood Pressure 114/50 10/08/2018 6:43 PM EDT Pulse 72 10/08/2018 6:43 PM EDT Temperature 36.8 C (98.2 F) 10/08/2018 6:43 PM EDT Respiratory Rate 19 10/08/2018 6:43 PM EDT Oxygen Saturation 99% 10/08/2018 6:43 PM EDT Inhaled Oxygen Concentration - - Weight 77.1 kg (170 lb) 10/08/2018 2:44 PM EDT Height 149.9 cm (4' 11 ) 10/08/2018 2:44 PM EDT Body Mass Index 34.34 10/08/2018 2:44 PM EDT Plan of Treatment Health Maintenance Due Date Last Done Comments Adult Td,Tdap Booster 1948 LIPID PANEL 1948 DEPRESSION SCREENING 1960 SMOKING Hx and SMOKELESS TOB ACCO SCREENING 1961 HEPATITIS C SCREENING 1966 PNEUMOCOCCAL VACCINES (50+ y ears) (1 of 1 - PCV) 1998 ZOSTER VACCINES (1 of 2) 1998 OSTEOPOROSIS SCREENING INITI AL (ONE-TIME) 2013 RSV VACCINE (1 - 1-dose 75+ series) 12/23/2023 COVID-19 VACCINE (2 - 2023-2 5 season) 2024 09/24/2020 HEPATITIS A VACCINES Aged Out No long er eligible based on patient's age to complete this topic HIB VACCINES Aged Out No longer eligi ble based on patient's age to complete this topic MENINGOCOCCAL VACCINES (ACWY) Aged Out No longer eligible based on patient's age to complete this topic MENINGOCOCCAL VACCINES (B) Aged Out N o longer eligible based on patient's age to complete this topic Medical Devices Not on file Insurance #[address] [place] [address] MEDICARE PART A & B [place] NET FULL MEDICARE PART A & B [employer] [facility] NET FULL MEDICARE PART A & B MEDICARE PART A & B MEDICARE PART A & B HEALTH SAFETY NET FULL #[address] [place] [address] MEDICARE PART A & B [address] [place] [address] MEDICARE PART A & B FULL Member Subscriber Plan / Payer (Ef fective 2023-Present) Name:Yaneth Rodrigeuz Relation to Subscriber:Self Name:Yaneth Rodriguez Payer ID:Not on file Group ID:Not on file Type:Medicaid Address: [id number] [place] [id number] MEDICARE PART A & B [employer] SAFETY NET FULL [address] [place] [address] MEDICARE PART A & B FULL Care Teams Fine Grade Bulldozer Operator Relationship Specialty Start Date End Date Wellington Manuel MD [address] [place] [phone] PCP - General Pulmonary Disease 10/08/18 Additional Source Comments The information contained in this document represents components of the legal health record. It is not the complete legal health record.[facility]
[2025-01-04 17:23] LABS: Appearance Urine Cloudy; Glucose Urine UA Negative (Negative); PH 5.5 (5.0-9.0); Specific Gravity - Urine 1.020 (1.005-1.025); UMIC TRIGGER UA YES
== END 2025-01-04 14:01 | disposition home or self-care (01) ==
LOC: HO.HMGCLDS 14:00
PROVIDERS: PCP Internal Medicine; Referring Provider Nurse Practitioner Family; Visit Provider Internal Medicine
DX: N39.0 Urinary tract infection, site not specified (principal); E55.9 Vitamin D deficiency, unspecified; R32 Unspecified urinary incontinence
CPT/HCPCS: 36415; 81001; 82306; 87086

== ENCOUNTER 2025-01-10 14:23 | Outpatient (AMB) | payer MEDICARE, MEDICAID, SELFPAY ==
--- NOTE | 2025-01-10 14:41 | MHC.OFFVIS ---
Intake Visit Reasons: 3M follow up/ PVR Intake Note: Patient presents today for 3m follow up/PVR Urology Medications:Vitamin C, Methenamine, Vesicare, Gemtesa Blood Thinner:None Allergies to Antibiotic:No Known Allergies PVR: 11ml Appliance Repairer Required: No Accompanied by: Self / Same As Patient Allergies adhesive (ADHESIVE) Allergy (Unknown, Verified 01/10/25 21:49) LOCAL REACTION melatonin Allergy (Verified 01/10/25 21:49) PYSCHOSIS blue dye Adverse Reaction (Verified 01/10/25 21:49) Diarrhea Medication List - Last Reconciled 01/10/25 by NELI Pedroza-DANG acetaminophen 1,000 mg PO Q6H PRN albuterol sulfate 1 vial inhalation Q4H PRN albuterol sulfate 90 mcg/actuation (Ventolin HFA) 2 puffs inhalation Q4H PRN amlodipine 5 mg See Protocol PO DAILY ascorbic acid (vitamin C) 1 g PO DAILY 90 days aspirin (Adult Aspirin Regimen) 81 mg PO DAILY cefuroxime axetil 500 mg PO Q12H dexlansoprazole 30 mg PO DAILY@1900 dextran 70-hypromellose (PF) 0.1-0.3 % (Artificial Tears (PF)) 1 drp ophthalmic (eye) Q4H PRN doxepin 25 mg PO BEDTIME ergocalciferol (vitamin D2) 1,250 mcg PO WE@0900 escitalopram oxalate (Lexapro) 20 mg PO DAILY ferrous sulfate (Feosol) 325 mg PO BEDTIME gabapentin 300 mg PO BID Lactobacillus acidophilus (Acidophilus capsule) 50,000 mmu cells PO DAILY lidocaine 5% 1 patch topical DAILY lorazepam 1 mg PO DAILY@1800 lorazepam 0.5 mg PO DAILY PRN losartan 50 mg See Protocol PO DAILY magnesium 250 mg PO BEDTIME methenamine hippurate 1 g PO DAILY metoprolol tartrate (Lopressor) 100 mg PO BID wt-tbm-FA-vit A-tosqpy-viafqnf 200 mcg-15 mcg- 5 mg-1 mg (PreserVision AREDS 2 Plus Multivit) caps PO naproxen 500 mg PO BID PRN potassium chloride ER 10 mEq PO DAILY simvastatin (Zocor) 40 mg PO BEDTIME solifenacin (Vesicare) 10 mg PO DAILY 90 days torsemide 40 mg PO DAILY umeclidinium-vilanterol 62.5-25 mcg/actuation (Anoro Ellipta) 1 ea inhalation DAILY vibegron (Gemtesa) 75 mg PO DAILY 90 days vit C,R-Dz-gcrkt-lutein-zeaxan 250-90-40-1 mg (PreserVision AREDS-2) 1 tab PO BID vitamin B complex 1 tab PO DAILY HPI Comments Details: Yaneth is a pleasant 73-year-old female patient of Dr. Bains who was accompanied by her son Mich at today's office visit. She has a past medical history of?diastolic CHF, iron deficiency anemia, asthma, PAF, ulcerative colitis, depression, macular degeneration, bioprosthetic aortic and mitral valve replacement on anticoagulation. She presents to the office today for follow-up of her ongoing lower urinary tract symptoms, interstitial cystitis, mixed urinary incontinence, and hematuria. In discussion with the patient today she discusses having experienced UTI like symptoms last month at which time she followed up with urgent care and has since completed antibiotic treatment (cefuroxime). She also discusses having recently experience a viral illness in his had ongoing coughing and has noted worsening symptoms of her incontinence with increase in coughing. She does continue to report compliance with Gemtesa, methenamine, and vitamin-C. She reports she has not been compliant with Estrace cream however she will attempt to apply as prescribed. She discusses having had insurance covers with [employer] and has not been taking this medication however does not feel this is made a difference in her overactive bladder symptoms. In office urinalysis results reviewed with the patient today negative leukocytes, negative nitrates, and negative microscopic hematuria. She discusses having followed up with audiology in [place] and has since been wearing her hearing aids and has found this helpful. We did discuss further treatment options of interstitial cystitis to include rescue solutions verses low-dose Cialis for bladder stability. We also discussed in office urodynamics for further assessment evaluation however given patient's previous trauma she does not wish to undergo any other treatment options for her interstitial cystitis and or urinary incontinence. She would like to continue with current regimen at this time. She otherwise denies flank pain, fever, and or chills. Previous workup has included a microgen 10/15 noting Streptococcus anginosus, finegoldia magna, propionimcrobium lymphophilum, actinotignum schaalii, escherichia coli, anaerococcus prevotii, Enterococcus faecalis, Citrobacter freundii, intestinibacter bartlettii, peptoniphilus lacrimalis, gleimia europaea, corynebacterium sp, prevotella bivia, and Leana glabrata. Also a cystoscopy under sedation with Dr. Arreguin 04/16 noting diffuse mucosal erythema consistent with chronic cystitis. Previous urine cultures are as follows: 03/15 E coli, 04/15 Enterococcus faecalis, 07/17 Klebsiella pneumoniae, 08/14 E coli, 01/14 Raoultella planticola, 09/15 E coli, 05/17 Klebsiella pneumoniae, 09/16 E coli/Enterococcus faecalis [facility] Medical History (Updated 01/10/25 @ 22:17 by Jeannie Sanchez [facility]) Incontinence Memory loss, short term Carpal tunnel syndrome on both sides Cataract CHF exacerbation History of stroke Abnormal colonoscopy (~04/03/22) Wheezing Anemia Urinary incontinence Right carpal tunnel syndrome Post cardiotomy syndrome PTSD (post-traumatic stress disorder) Osteoarthritis, hip, bilateral Interstitial cystitis Lipid disorder Insomnia Generalized anxiety disorder with panic attacks Major depression, recurrent History of ulcerative colitis Chronic GERD Diastolic congestive heart failure Paroxysmal atrial fibrillation Age related osteoporosis Asthma, moderate persistent Anticoagulant long-term use Iron deficiency anemia Establishing care with new doctor, encounter for Hypertension, essential Surgical History Hx of tonsillectomy Hx of colonoscopy Hx of rotator cuff surgery History of arthroplasty of both knees Hx of hysterectomy Status post mitral valve replacement Status post aortic valve replacement History of kyphoplasty History of artificial heart valve Family History Daughter Mental health disorder Substance use disorder Father Emphysema lung Mother Heart disease Stroke Pacemaker Arthritis Family/Other Colon cancer Sister Crohn's disease Social History Household Members: Family Household Members Other:: son Housing: House Are you a primary client care manager to a significant other at home: No Do you presently have visiting nurse or other home services: No Alcohol intake: never Patient Tobacco Use Status: Former Tobacco user e-Cigarette/Vaping Use: Never Used Substance Use Type: Marijuana Advance Directives Date on File: 03/18/22 service: No Current occupational status: retired Cognitive needs: No Hearing needs: No Vision needs: Yes Review of Systems Const Reports as per [facility] Eyes Reports as per [facility] ENT Reports as per [facility] Card Reports as per [facility] Resp Reports no additional complaints GI Reports as per [facility] Reports as per [facility] Musc Reports as per [facility] Neuro Reports as per [facility] Psych Reports no additional complaints Endo Reports no additional complaints Blayne/Lymph Reports as per [facility] Physical Exam Const General: cooperative, healthy appearing, comfortable, no acute distress, well developed, alert and awake Nutritional Appearance: overweight Orientation/consciousness: patient oriented x3 Limitations: wheelchair HEENT Head: Yes normal to inspection, Yes normocephalic and Yes atraumatic Ears: hearing grossly normal bilaterally Eyes General: appearance normal, both eyes and all related structures Neck Neck: Yes normal visual inspection and Yes trachea midline Chest Chest palpation & inspection: normal inspection of the chest Resp Effort & Inspection: normal respiratory effort and able to speak in complete sentences Cardio Rate: regular rate GI Inspection: Yes normal to inspection General: Yes no CVA tenderness Back/Spine/Pelvis Back: no CVA tenderness Skin General skin exam: no rashes or lesions noted Neuro General: patient oriented x3 Extrem General: Yes normal to inspection Psych Appearance: grossly normal and well kempt Mental Status: mental status grossly normal Speech and movement: Normal speech and movement present and Clear speech present Affect: normal affect Attitude: cooperative Thought process: Normal thought process present Thought content: Normal thought content present Insight: Fair insight present (Psych) Judgement: Fair judgement present (Psych) Results AMB Urinalysis, Automated UA Leukoctes 0 Aleisha/uL Last Edit by Valentine Orlando on 01/10/25 16:30 UA Nitrite Negative Last Edit by Valentine Orlando on 01/10/25 16:30 UA Urobilinogen 17 mg/dL Last Edit by Valentine Orlando on 01/10/25 16:30 UA Protein 0 mg/dL Last Edit by Valentine Orlando on 01/10/25 16:30 UA pH 6.0 Last Edit by Valentine Orlando on 01/10/25 16:30 UA Blood 0 Negrito/uL Last Edit by Valentine Orlando on 01/10/25 16:30 UA Specific [place] 1.010 Last Edit by Valentine Orlando on 01/10/25 16:30 UA Ketone Negative Last Edit by Valentine Orlando on 01/10/25 16:30 UA Bilirubin 0 mg/dL Last Edit by Valentine Orlando on 01/10/25 16:30 UA Glucose 0 mg/dL Last Edit by Valentine Orlando on 01/10/25 16:30 Results Reviewed Results Reviewed: Laboratory Last Values Urine pH (Auto) 6.0 01/10/25 16:13 Specific [place] (Auto) 1.010 01/10/25 16:13 Urine Protein (Auto) 0 mg/dL 01/10/25 16:13 Glucose (UA)(Auto) 0 mg/dL 01/10/25 16:13 Urine Ketones (Auto) Negative 01/10/25 16:13 Urine Blood (Auto) 0 Negrito/uL 01/10/25 16:13 Urine Nitrite (Auto) Negative 01/10/25 16:13 Urine Bilirubin (Auto) 0 mg/dL 01/10/25 16:13 Urine Urobilinogen (Auto) 17 mg/dL 01/10/25 16:13 Leukocyte Esterase (Auto) 0 Aleisha/uL 01/10/25 16:13 Assessment & Plan Assessment & Plan (1) Interstitial cystitis: Code(s): N30.10 - Interstitial cystitis (chronic) without hematuria Category: Medical (2) Urine incontinence: Code(s): R32 - Unspecified urinary incontinence Category: Medical (3) Frequency of urination: Code(s): R35.0 - Frequency of micturition Category: Medical (4) Recurrent UTI: Code(s): N39.0 - Urinary tract infection, site not specified Category: Medical Plan In office urinalysis results reviewed with the patient today; as noted above. PVR 11 mL. Continue Gemtesa, Estrace, methenamine, and vitamin-C as prescribed. We did discussed further treatment options of incontinence as well as interstitial cystitis Will continue with current regimen at this time. Discussed UTI prevention with D mannose supplement, vitamin-C, increasing fluid intake, behavioral therapy with timed voiding, perineal hygiene and postcoital voiding, and management of constipation with stool softeners and increased fiber intake. She currently denies any UTI like symptoms. Follow-up in 3 months with PVR; or sooner with any issues, concerns, and or questions. Orders: Orders AMB Urinalysis Automated Today Z13.9 - Encounter for screening, unspecified AMB Post Void Residual by ultrasound Today N39.0 - Urinary tract infection, site not specified Medications: Discontinued solifenacin (Vesicare) Discontinued Reason: Insurance Denied 10 mg PO DAILY 90 days 90 tabs 4RF cefuroxime axetil Discontinued Reason: Patient Completed Course 500 mg PO Q12H 10 tabs 0RF Patient Instructions: The patient had an opportunity to ask questions regarding the treatment plan. All questions were answered. Physical exam, labs, and imaging were discussed and reviewed in detail. As well as risks, benefits, and discussion of treatment choices. No major barriers to understanding were identified. The patient expressed understanding and agreement with the above treatment plan. The patient was made aware they should contact our office by phone for worsening of their current condition, the appearance of new symptoms, or with any questions or concerns. Compliance is encouraged with any medications and follow up testing that is ordered. It is a privilege to be allowed the opportunity to participate in? your urological care.? Again, if you have any questions or concerns If you have any questions or concerns please do not hesitate to contact me. The office is [phone]. This note is constructed using voice recognition software. While every effort has been made to ensure accuracy unhairing inspector errors may have been included. Yours sincerely, ROSEMARIE Pedroza Coding Level of Care Code Est Pt Level 4 (58330) Complex EM visit Add On G2211 Diagnoses Interstitial cystitis N30.10 Urine incontinence R32 Frequency of urination R35.0 Recurrent UTI N39.0
--- OUTSIDE RECORDS SUMMARY | 2025-01-10 15:44 | XMS_ITS | Clinical Summary ---
Author Organization [facility] Address [address] [place] [address] Phone Care Team Providers Care Design Analyst Name Role Phone Negrita Bains MD Primary Care Provider [phone] Allergies Active Allergy Reactions Criticality Noted Date [...] a day. 180 tablet 2 5 Active umeclidinium-vi lanteroL (Anoro Ellipta) 62.5-25 mcg/actuation [...] EVERY DAY 180 tablet 1 5 Active Active Problems Problem Noted Date Diagnosed Date CVA (cerebral vascular accident) ([facility] V24, C [facility] V28) 09/27/2024 Asthma 10/14/2022 Back pain 10/14/2022 Chronic interstitial cystitis 10/14/2022 Osteoporosis 10/14/2022 Pleural effusion, right 10/14/2022 Post-pericardiotomy syndrome 10/14/2022 Posttraumatic stress disorder 10/14/2022 Sacroiliitis ([facility] V24) 10/14/2022 Overview (04/12/2024): Last [...] can follow-up with us afterwards. Severe obesity ([facility] V24, [facility] V28) 2022 Ulcerative colitis ([facility] V24, [facility] V28) (HFpEF) heart failure with p reserved ejection fraction ([facility] V24, [facility] V28) 06/17/2022 Overview (08/30/2024): Assessment [...] review. Wedge fracture of thoracic v ertebra ([facility] V24, [facility] V28) 01/24/2021 Atrial fibrillation ([facility] V24, [facility] V28) 0 11/19/2020 Overview (08/30/2024): previously anticoagulated with Coumadin but has had complications of severe hematuria in the past; is very uncertain based on our lack of access to [facility] records how much A-fib she truly has -Admitted at [facility] in August 2019 for for [...] continue baby aspirin. - Request results from [facility]. - Will try to communicate [...] mild prosthetic aortic stenosis. Echocardiogram done at [facility]. - Request results from [facility]. Hypertension 08/16/2020 Overview (04/12/2024): Last [...] repeat her echocardiogram. Fracture of thoracic spine ([facility] V24, [facility] V28) 05/26/2018 Osteoarthritis of knee 04/12/2018 Gastroesophageal reflux disease without esophagi tis 04/12/2018 Resolved Problems Problem Noted Date Diagnosed Date Resolved Date Chronic diastolic heart fail ure ([facility] V24, [facility] V28) 10/14/2022 08/30/2024 Congestive heart failure ([facility] /[facility] V24, [facility] V28) 11/15/2020 08/30/2024 Overview (04/12/2024): [...] Description 12/27/2024 6:20 PM EDT Ancillary Procedure [facility] [address] [place] [address] 11/21/2024 9:25 PM EDT Ancillary Procedure [facility] [address] [facility] [address] [place] [address] 11/09/2024 12:08 PM EDT - 11/09/2024 11:59 PM EDT Hospital Encounter [facility] Interventional Radiology [address] [place] [address] Sacroiliitis ([facility] V24) Discharge Disposition: Home or Self Care 11/01/2024 3:50 PM EDT Ancillary Procedure [facility] [address] [facility] [address] [place] [address] 10/28/2024 11:00 AM EDT - 10/28/2024 11:30 AM EDT Surgery [facility] Cardiac Database Marketing Manager [address] [place] [address] Parish Morgan MD Loop recorder insertion [20376 (CPT )] 10/28/2024 9:54 AM EDT - 10/28/2024 12:03 PM EDT Hospital Encounter [facility] Cardiac Database Marketing Manager [address] [place] [address] Parish Morgan MD Paroxysmal atrial fibrillation (CMS/HCC V24, CMS/HCC V28) Discharge Disposition: Home or Self Care 10/24/[address] [facility] [address] [facility] [address] [place] [address] Madeline Espinosa MD Lab Results (Faxed a [...] Macular degeneration Anemia Congestive heart failure (CHF) ([facility] V24, [facility] V28) Ulcerative colitis ([facility] V24, [facility] V28) Asthma Back pain Anxiety [...] Description 04/11/2025 8:40 AM EST Office Visit [facility] [address] [facility] [address] [place] [address] Mich Montiel NP [address] [place], [place] [id number] Scheduled Procedures Name Priority Associated Diagnoses Date/Ti me LOOP RECORDER INSERTION Atrial fibrillation, unspecified type ([facility] V24, [facility] V28) Health Maintenance Due Date [...] Depression Screening 05/25/2024 Influenza Vaccine (#1) 2025 , 03/06/2021, 03/10/2020, Additional history exists Cholesterol Screening [...] this topic Medical Devices Implanted Type Area End Touching Machine Operator Device Identifier Shelf Expiration Date Model / Serial / Lot Monitor Cardiac Insert Lux Dx Ii+ - [id number] - [id number] Implanted:Qty: 1 on 10/28/2024 by Parish Morgan MD at [facility] Cardiac Loop Recorder N/A: Chest [employer] MGMT [id number] 01/03/2026 [id number] / [id number] / Procedures Procedure Name Priority Date/Time Associated [...] CLINICAL LAB Routine 10/20/2024 10:38 AM EDT ANNUAL BMP BLOOD TEST Routine 02/26/2023 LIPID PANEL Routine 06/26/2021 from Last 3 Months or Most Recently Relevant to Health Maintenance Results * Cardiac device check - Remote- MURJ (12/27/2024 6:16 PM EDT) Only the most recent of3 resultswithin the time period is included. Date Time Interrogation Session [id number] CV DEVICE CHECK Type Interrogation Session Remote Scheduled CV DEVICE CHECK Implantable Pulse Generator End Touching Machine Operator BSX CV DEVICE CHECK Implantable Pulse Generator Type ILR CV DEVICE CHECK Implantable Pulse Generator Model M312 CV DEVICE CHECK Implantable Pulse Generator Serial Number [id number] CV DEVICE CHECK Implantable Pulse Generator Implant Date 20241028 CV DEVICE CHECK Battery Status Beginning of Service CV DEVICE CHECK Atrial Tachy Statistic AT/AF [place]ose[place] Percent 0.00 CV DEVICE CHECK Date of [...] Signed Date: 11/10/2024 12:08 ET Workstation ID: [id number] Transcribed By: Self Edit Transcribed Date: 11/09/2024 14:48 ET Resident/PA/DAY CAMP UNIT LEADER: Pat Real Narrative 11/10/2024 12:08 PM EDT [...] bupivacaine TECHNIQUE: Informed consent obtained. Patient placed MALAGASY on the CT scan table and multiple [...] bupivacaine TECHNIQUE: Informed consent obtained. Patient placed MALAGASY on the CT scantable and multiple axial [...] Signed Date: 11/10/2024 12:08 ET Workstation ID: [id number] Transcribed By: Self Edit Transcribed Date: 11/09/2024 14:48 ET Resident/PA/DAY CAMP UNIT LEADER: Pat Real us Michael BARRAGAN IMG IR [...] Cryptogenic stroke with question of atrial fibrillation Utilization Review Nurse: Parish Morgan MD Device implanted: [employer] Lux DX II model number M312 serial #[id number], R wave 0.3 mV Procedure detail: After obtaining written informed consent the patient was brought to prep and recovery at [facility]. She was prepped in usual sterile fashion. [...] Successful implantation of a implantable loop recorder. us Parish Morgan MD CV ELECTROPHYSIOLOGY PROCEDURE S Final Result * External clinical lab (10/20/2024 10:38 AM EDT) Historical Provider LAB BLOOD ORDERABLES Alba l Result * Annual BMP Blood Test (02/26/2023) Pathologist [facility] Annual BMP Blood Test abstracted Historical Provider HEALTH MAINTENANCE Final Result * Lipid panel (06/26/2021) [facility] LDL/HDL Ratio 2 0 - [...] Documents on File Type Date Recorded Patient Head Loader Expl anation Health Care Decision (hx) 02/12/2023 DANIEL SANTAMARIA DIRECTIVE Care Teams Design Analyst Relationship Specialty Start Date End Date Negrita Bains MD [address] [place] [address] PCP - General Internal Medicine 08/01/24
--- OUTSIDE RECORDS SUMMARY | 2025-01-10 15:44 | XMS_ITS | Clinical Summary ---
Author Organization [facility] Address [address] [place] [phone] Phone Care Team Providers Care Theatre Professor Name Role Phone Wellington Manuel MD Primary Care Provider [phone] Allergies Active Allergy Reactions Criticality Noted Date [...] Medical Devices Not on file Insurance #[address] [place] [address] MEDICARE PART A & B [employer] NET FULL MEDICARE PART A & B [employer] [facility] NET FULL MEDICARE PART A & B MEDICARE PART A & B MEDICARE PART A & B HEALTH SAFETY NET FULL #[address] [place] [address] MEDICARE PART A & B [address] [place] [address] MEDICARE PART A & B FULL Member Subscriber Plan / Payer (Ef fective 2023-Present) Name:Yaneth Rodriguez Relation to Subscriber:Self Name:Yaneth Rodriguez Payer ID:Not on file Group ID:Not on file Type:Medicaid Address: [facility], [id number] [place] [id number] MEDICARE PART A & B [employer] SAFETY NET FULL [address] [place] [address] MEDICARE PART A & B FULL Care Teams Theatre Professor Relationship Specialty Start Date End Date Wellington Manuel MD [address] [place] [address] PCP - General Pulmonary Disease 10/08/18 Additional Source Comments The information contained in this document represents components of the legal health record. It is not the complete legal health record.[facility]
== END 2025-01-10 15:43 | disposition home or self-care (01) ==
LOC: HO.HUSH 14:24
PROVIDERS: PCP Internal Medicine; Visit Provider Nurse Practitioner Family
DX: N30.10 Interstitial cystitis (chronic) without hematuria (principal); R32 Unspecified urinary incontinence; R35.0 Frequency of micturition; N39.0 Urinary tract infection, site not specified; Z13.9 Encounter for screening, unspecified
CPT/HCPCS: 99214; G2211

== ENCOUNTER → 2025-01-10 14:23 | Outpatient (BNVA) | payer MEDICARE, MEDICAID, SELFPAY | PROVIDERS: PCP Internal Medicine; Visit Provider Nurse Practitioner Family | DX: N30.10 Interstitial cystitis (chronic) without hematuria (principal); R32 Unspecified urinary incontinence; R35.0 Frequency of micturition | CPT/HCPCS: 81003; 99212 ==

== ENCOUNTER 2025-01-25 13:08 | Outpatient (REF) | payer MEDICARE, MEDICAID, SELFPAY ==
[2025-01-25 14:11] LABS: Appearance Urine Cloudy; Glucose Urine UA 100 mg/dL (Negative); PH 6.0 (5.0-9.0); Specific Gravity - Urine 1.025 (1.005-1.025); UMIC TRIGGER UA YES
--- OUTSIDE RECORDS SUMMARY | 2025-01-25 15:28 | XMS_ITS | Clinical Summary ---
Author Organization [facility] Address [address] [place] [id number] Phone Care Team Providers Care Horseshoer Name Role Phone Wellington Manuel MD Primary Care Provider [phone] Allergies Active Allergy Reactions Criticality Noted Date [...] DEPRESSION SCREENING 1960 SMOKING Hx and SMOKELESS TOBACCO SCREENING 1961 HEPATITIS C SCREENING 1966 PNEUMOCOCCAL VACCINES (50+ years) (1 of 1 - PCV) 1998 ZOSTER VACCINES (1 of 2) 1998 OSTEOPOROSIS SCREENING INITI AL (ONE-TIME) 2013 RSV VACCINE (1 - 1-dose 75+ series) 12/23/2023 INFLUENZA VACCINE (#1) 2024 , 03/08/2019, 03/04/2017 COVID-19 VACCINE (2 - 2024-2 6 season) 2025 09/24/2020 HEPATITIS A VACCINES Aged Out No [...] Medical Devices Not on file Insurance #[address] [place] [address] MEDICARE PART A & B NET FULL #[address] [place] [address] MEDICARE PART A & B FULL Member Subscriber Plan / Payer (Ef fective 2023-Present) Name:Yaneth Rodriguez Relation to Subscriber:Self Name:Yaneth Rodriguez Payer ID:Not on file Group ID:Not on file Type:Medicaid Address: [place] [id number] [place] [id number] MEDICARE PART A & B MEDICARE PART A & B MEDICARE PART A & B HEALTH SAFETY NET FULL MEDICARE PART A & B MEDICARE PART A & B FULL MEDICARE PART A & B Userlike Live Chat NET FULL MEDICARE PART A & B [employer] Live Chat NET FULL Care Teams Horseshoer Relationship Specialty Start Date End Date Wellington Manuel MD [address] [place] [id number] PCP - General Pulmonary Disease 10/08/18 Additional Source Comments The information contained in this document represents components of the legal health record. It is not the complete legal health record.[facility]
--- OUTSIDE RECORDS SUMMARY | 2025-01-25 15:28 | XMS_ITS | Clinical Summary ---
Author Organization [facility] Address [address] [place] [address] Phone Care Team Providers Care Textile Machine Mechanic Name Role Phone Negrita Bains MD Primary Care Provider [phone] Allergies Active Allergy Reactions Criticality Noted Date [...] Date Diagnosed Date CVA (cerebral vascular accident) ([facility] V24, C MS/[facility] V28) 09/27/2024 Asthma 10/14/2022 Back pain 10/14/2022 Chronic interstitial cystitis 10/14/2022 Osteoporosis 10/14/2022 Pleural effusion, right 10/14/2022 Post-pericardiotomy syndrome 10/14/2022 Posttraumatic stress disorder 10/14/2022 Sacroiliitis ([facility] V24) 10/14/2022 Overview (04/12/2024): Last [...] can follow-up with us afterwards. Severe obesity ([facility] V24, [facility] V28) 2022 Ulcerative colitis ([facility] V24, [facility] V28) (HFpEF) heart failure with p reserved ejection fraction ([facility] V24, [facility] V28) 06/17/2022 Overview (08/30/2024): Assessment [...] review. Wedge fracture of thoracic v ertebra ([facility] V24, [facility] V28) 01/24/2021 Atrial fibrillation ([facility] V24, [facility] V28) 0 11/19/2020 Overview (08/30/2024): previously anticoagulated with Coumadin but has had complications of severe hematuria in the past; is very uncertain based on our lack of access to [facility] records how much A-fib she truly has -Admitted at [facility] in August 2019 for for both [...] continue baby aspirin. - Request results from [facility]. - Will try to communicate with [...] mild prosthetic aortic stenosis. Echocardiogram done at [facility]. - Request results from [facility]. Hypertension 08/16/2020 Overview (04/12/2024): Last Assessment [...] repeat her echocardiogram. Fracture of thoracic spine ([facility] V24, [facility] V28) 05/26/2018 Osteoarthritis of knee 04/12/2018 Gastroesophageal reflux disease without esophagi tis 04/12/2018 Resolved Problems Problem Noted Date Diagnosed Date Resolved Date Chronic diastolic heart fail ure ([facility] V24, [facility] V28) 10/14/2022 08/30/2024 Congestive heart failure ([facility] /[facility] V24, [facility] V28) 11/15/2020 08/30/2024 Overview (04/12/2024): [...] Description 12/27/2024 6:20 PM EDT Ancillary Procedure [facility] [address] [place] [address] 11/21/2024 9:25 PM EDT Ancillary Procedure [facility] [address] [place] [address] 11/09/2024 12:08 PM EDT - 11/09/2024 11:59 PM EDT Hospital Encounter [facility] Interventional Radiology [address] [place] [address] Sacroiliitis ([facility] V24) Discharge Disposition: Home or Self Care 11/01/2024 3:50 PM EDT Ancillary Procedure [facility] [address] [place] [address] 10/28/2024 11:00 AM EDT - 10/28/2024 11:30 AM EDT Surgery [facility]iac [employer] [address] [place] [address] Parish Morgan MD Loop recorder insertion [40899 (CPT )] 10/28/2024 9:54 AM EDT - 10/28/2024 12:03 PM EDT Hospital Encounter [facility] [address] [place] [address] Parish Morgan MD Paroxysmal atrial fibrillation (CMS/HCC V24, CMS/HCC V28) Discharge Disposition: Home or Self Care from Last 3 Months Immunizations Name Administration [...] Macular degeneration Anemia Congestive heart failure (CHF) ([facility] V24, [facility] V28) Ulcerative colitis ([facility] V24, CMS/[facility] V28) Asthma Back pain Anxiety [...] Description 04/11/2025 8:40 AM EST Office Visit [facility] [address] [facility] [address] [place] [address] Mich Montiel NP [address] [place] [address] [place] [address] Scheduled Procedures Name Priority Associated Diagnoses Date/Ti me LOOP RECORDER INSERTION Atrial fibrillation, unspecified type ([facility] V24, [facility] V28) Health Maintenance Due Date Last [...] this topic Medical Devices Implanted Type Area Refrigeration Lead Device Identifier Shelf Expiration Date Model / Serial / Lot Monitor Cardiac Insert Lux Dx Ii+ - [id number] - [id number] Implanted:Qty: 1 on 10/28/2024 by Pairsh Morgan MD at [facility] Cardiac Loop Recorder N/A: Chest [employer] MGMT [id number] 01/03/2026 [id number] / [id number] / Procedures Procedure Name Priority Date/Time Associated [...] Paroxysmal atrial fibrillation (CMS/HCC V24, CMS/HCC V28) ANNUAL BMP BLOOD TEST Routine 02/26/2023 LIPID PANEL Routine 06/26/2021 from Last 3 Months or Most Recently Relevant to Health Maintenance Results * Cardiac device check - Remote- MURJ (12/27/2024 6:16 PM EDT) Only the most recent of3 resultswithin the time period is included. Date Time Interrogation Session [id number] CV DEVICE CHECK Type Interrogation Session Remote Scheduled CV DEVICE CHECK Implantable Pulse Generator Refrigeration Lead BSX CV DEVICE CHECK Implantable Pulse Generator Type ILR CV DEVICE CHECK Implantable Pulse Generator Model M312 CV DEVICE CHECK Implantable Pulse Generator Serial Number [id number] CV DEVICE CHECK Implantable Pulse Generator Implant Date [id number] CV DEVICE CHECK Battery Status Beginning of Service CV DEVICE CHECK Atrial Tachy Statistic AT/AF Wilmot Percent 0.00 CV DEVICE CHECK Date of [...] rhythm reviewed * Heart Rate Histograms reviewed Parish Morgan MD CV IMPLANTABLE CARDIAC DEVICE [...] Mathews Reviewed and Electronically Signed By: Esther Mathwes Signed Date: 11/10/2024 12:08 ET Workstation ID: [id number] Transcribed By: Self Edit Transcribed Date: 11/09/2024 14:48 ET Resident/PA/FORM RAISER: Pat Real Narrative 11/10/2024 12:08 PM EDT [...] bupivacaine TECHNIQUE: Informed consent obtained. Patient placed AUSTRALIAN on the CT scan table and multiple [...] bupivacaine TECHNIQUE: Informed consent obtained. Patient placed AUSTRALIAN on the CT scantable and multiple axial [...] Signed Date: 11/10/2024 12:08 ET Workstation ID: [id number] Transcribed By: Self Edit Transcribed Date: 11/09/2024 14:48 ET Resident/PA/FORM RAISER: Pat Real Result [facility] Michael BARRAGAN IMG IR PROCEDURES Final Resul [...] Cryptogenic stroke with question of atrial fibrillation Escapement Matcher: Parish Morgan MD Device implanted: [employer] Lux DX II model number M312 serial #[id number], R wave 0.3 mV Procedure detail: After obtaining written informed consent the patient was brought to prep and recovery at [facility]. She was prepped in usual [...] Successful implantation of a implantable loop recorder. Parish Morgan MD CV ELECTROPHYSIOLOGY PROCEDURE S Final Result * Annual BMP Blood Test (02/26/2023) Pathologist [facility] Annual BMP Blood Test abstracted Result [facility] Historical Provider HEALTH MAINTENANCE Final Result * Lipid panel (06/26/2021) Pathologist [facility] LDL/HDL Ratio 2 0 - 4 Triglycerides 146 0 - 150 mg/dL Cholesterol 123 0 - 200 mg/dL HDL 53 >=40 mg/dL LDL Cholesterol 41 0 - 100 mg/dL Blood Venous blood specimen / Unknown us Historical Provider LAB BLOOD ORDERABLES Alba l Result from Last 3 Months or Most Recently Relevant to Health Maintenance Insurance MEDICA[place] - [place] MEDICARE Advance Directives Documents on File Type Date Recorded Patient Sales Service Rep Expl anation Health Care Decision (hx) 02/12/2023 DANIEL SANTAMARIA DIRECTIVE Care Teams Textile Machine Mechanic Relationship Specialty Start Date End Date Negrita Bains MD [address] [place] [address] PCP - General Internal Medicine 08/01/24
[2025-01-29 15:43] LABS: Vitamin D 25-OH, D2 4 ng/mL; Vitamin D 25-OH, D3 51 ng/mL; Vitamin D 25-OH, Total 55 ng/mL (30-100)
== END 2025-01-25 13:09 | disposition home or self-care (01) ==
LOC: HO.LAB 13:08
PROVIDERS: Absent Provider Nurse Practitioner Family; PCP Internal Medicine; Visit Provider Internal Medicine
DX: N30.10 Interstitial cystitis (chronic) without hematuria (principal); E55.9 Vitamin D deficiency, unspecified; N39.0 Urinary tract infection, site not specified; I50.32 Chronic diastolic (congestive) heart failure; D50.9 Iron deficiency anemia, unspecified; F41.1 Generalized anxiety disorder; Z91.81 History of falling; I48.0 Paroxysmal atrial fibrillation; N28.9 Disorder of kidney and ureter, unspecified; I42.9 Cardiomyopathy, unspecified; Z79.899 Other long term (current) drug therapy
CPT/HCPCS: 36415; 81001; 82306; 87086; 96127; 99212

== ENCOUNTER 2025-01-25 15:08 | Outpatient (AMB) | payer MEDICARE, MEDICAID, SELFPAY ==
[2025-01-25 15:11] VITALS: BP 130/70; PULSE 54; O2SAT 91; BMI 38.3
--- NOTE | 2025-01-25 15:11 | MHC.PC.OV ---
Vital Signs 01/25/25 15:11 Height 5 ft Weight 196 lb BMI 38.3 BP 130/70 Blood Pressure Location Lt brachial Position Sitting Pulse 54 Pulse Source Pulse Oximeter Pulse Oximetry (%) 91 L Intake Visit Reasons: med followup - see comments Allergies adhesive (ADHESIVE) Allergy (Unknown, Verified 01/25/25 15:12) LOCAL REACTION melatonin Allergy (Verified 01/25/25 15:12) PYSCHOSIS blue dye Adverse Reaction (Verified 01/25/25 15:12) Diarrhea Medication List - Last Reconciled 01/25/25 by Negrita Bains MD albuterol sulfate 1 vial inhalation Q4H PRN albuterol sulfate 90 mcg/actuation (Ventolin HFA) 2 puffs inhalation Q4H PRN amlodipine 5 mg See Protocol PO DAILY ascorbic acid (vitamin C) 1 g PO DAILY 90 days dexlansoprazole 30 mg PO DAILY doxepin 25 mg PO BEDTIME ergocalciferol (vitamin D2) 1,250 mcg PO WE@0900 escitalopram oxalate (Lexapro) 20 mg PO DAILY ferrous sulfate (Feosol) 325 mg PO BEDTIME gabapentin 300 mg PO BID Lactobacillus acidophilus (Acidophilus capsule) 50,000 mmu cells PO DAILY lorazepam 1 mg PO BID PRN losartan 25 mg See Protocol PO DAILY magnesium 250 mg PO BEDTIME methenamine hippurate 1 g PO DAILY metoprolol tartrate (Lopressor) 100 mg PO BID [id number]-[id number]-vit L-azhrma-nsydjtq 200 mcg-15 mcg- 5 mg-1 mg (PreserVision AREDS 2 Plus Multivit) caps PO potassium chloride ER 10 mEq PO DAILY simvastatin (Zocor) 40 mg PO BEDTIME torsemide 40 mg PO DAILY umeclidinium-vilanterol 62.5-25 mcg/actuation (Anoro Ellipta) 1 ea inhalation DAILY vibegron (Gemtesa) 75 mg PO DAILY 90 days vitamin B complex 1 tab PO DAILY Tobacco use date assessed: 01/25/25 Fall risk assessment: No Falls in past year Last assessed Fall Risk: 01/25/25 Dental Screening Dental Screen Date: 09/27/24 HPI med followup - see comments HPI Details History The patient is a 74-year-old female presenting with chronic heart failure, paroxysmal atrial fibrillation, and urinary symptoms. Chronic Heart Failure: - History of congestive heart failure with preserved ejection fraction. - Medications for blood pressure and heart conditions are managed by a dental associate. - Last cardiology visit was in September, and an echocardiography was planned but delayed due to illness. - Patient reported ongoing oxygen use. Paroxysmal Atrial Fibrillation: - Patient has an implanted loop recorder. - Managed by a dental associate, Dr. Padgett. - Last seen by the dental associate in September by [facility]. Urinary Symptoms (Incontinence and Pain): - Reports of severe bladder incontinence and chronic urinary issues. - Described pain and swelling in the urethral area, making urination painful. - Has used estradiol cream for urinary complaints, but discontinued due to bleeding, then resumed on advice.. Respiratory Issues: - Recent acute respiratory issues tied to wheezing episodes post-grocery outing. - Recently recovered from a severe viral infection - Uses supplemental oxygen as needed. - patient states that she has not taken diuretic as she was planning on leaving the home today And the days when she does not take it she can hear herself wheeze a little Medical History: - Congestive heart failure with preserved ejection fraction - Paroxysmal atrial fibrillation - Multiple sclerosis - Regular degeneration (possibly macular degeneration) - Chronic anemia - Ulcerative colitis - Psychiatric history including depression and anxiety - Interstitial cystitis - Benign thyroid nodule Surgical History: - Hysterectomy - Total knee replacement, both left and right - Retinal repair - Kyphoplasty at L2 - Open-heart valve replacement surgery - Implantation of a loop recorder Medications: - Amlodipine - Gemtesia - Midoprolol - Losartan - Lexapro - Gabapentin - Torsemide - Potassium chloride - Magnesium - Doxepin - Estradiol cream - Occasional oxycodone for pain Social History:n - Experiences urinary incontinence affecting her sleep and day-to-day life Problem List - Congestive Heart Failure with preserved ejection fraction - Paroxysmal Atrial Fibrillation - Interstitial Cystitis - Urinary Incontinence - polypharmacy due to numerous medical problems - wheelchair dependent for ambulation outside the house, and in need of new wheelchair - waiting for vitamin-D report - anemia of chronic disease [place] [facility] - Reproduction Machine Loader: Dr. Padgett and Dr. Madeline Espinosa - Leather Sponger: [facility] [place] - Logistics Project Manager: Dr. Kirkpatrick - Psychiatrist: Dr. Vera - Urology at [facility] - Primary Care: Dr. Garcia Patient Instructions - Take water pills as advised when home to reduce fluid retention and alleviate wheezing. - Use oxygen when necessary to assist with breathing. - Follow the urinalysis results for any changes. - Continue using estradiol cream as advised. - Consider use of lidocaine cream for urinary discomfort if needed. Review of Systems General: No fever no chills neurological: No headaches ear nose throat: No sore throat no hearing difficulty no ear pain cardiovascular: No syncope, no chest pain, no palpitations gastrointestinal: No nausea vomiting or diarrhea Physical Exam general: No acute distress, sitting in wheelchair HEENT: No acute findings neck: Supple respiratory system: Wheezing noted mild while talking, air entry good cardiovascular: S1-S2 gastrointestinal: No pain extremities: Swelling noted on ankles 1+ edema pitting DEHYDRATION PLANT OPERATOR: Alert awake oriented x3 skin: Normal turgor PFSH Medical History Status post placement of implantable loop recorder H/O cataract Incontinence Memory loss, short term Carpal tunnel syndrome on both sides Cataract CHF exacerbation History of stroke Abnormal colonoscopy (~04/03/22) Wheezing Anemia Urinary incontinence Right carpal tunnel syndrome Post cardiotomy syndrome PTSD (post-traumatic stress disorder) Osteoarthritis, hip, bilateral Interstitial cystitis Lipid disorder Insomnia Generalized anxiety disorder with panic attacks Major depression, recurrent History of ulcerative colitis Chronic GERD Diastolic congestive heart failure Paroxysmal atrial fibrillation Age related osteoporosis Asthma, moderate persistent Anticoagulant long-term use Iron deficiency anemia Establishing care with new doctor, encounter for Hypertension, essential Surgical History H/O detached retina repair H/O total knee replacement History of mastoidectomy Hx of tonsillectomy Hx of colonoscopy Hx of rotator cuff surgery History of arthroplasty of both knees Hx of hysterectomy Status post mitral valve replacement Status post aortic valve replacement History of kyphoplasty History of artificial heart valve Family History Daughter Mental health disorder Substance use disorder Father Emphysema lung Mother Heart disease Stroke Pacemaker Arthritis Family/Other Colon cancer Sister Crohn's disease Social History Household Members: Family Household Members Other:: son Housing: House Are you a primary sub acute care nurse to a significant other at home: No Do you presently have visiting nurse or other home services: No Alcohol intake: never Patient Tobacco Use Status: Former Tobacco user e-Cigarette/Vaping Use: Never Used Substance Use Type: Marijuana Advance Directives Date on File: 03/18/22 service: No Current occupational status: retired Cognitive needs: No Hearing needs: No Vision needs: Yes Questionnaire PHQ-9 Over the last 2 weeks, how often have you been bothered by any of the following problems? 1. Little interest or pleasure in doing things: several days 2. Feeling down, depressed, or hopeless: several days 3. Trouble falling or staying asleep, or sleeping too much: not at all 4. Feeling tired or having little energy: more than half the days 5. Poor appetite or overeating: several days 6. Feeling bad about yourself - or that you are a failure or have let yourself or your family down: not at all 7. Trouble concentrating on things, such as reading the newspaper or watching television: not at all 8. Moving or speaking so slowly that other people could have noticed. Or the opposite - being so fidgety or restless that you have been moving around a lot more than usual: not at all 9. Thoughts that you would be better off or of hurting yourself in some way: not at all Total score: 5 Depression Screening Interpretation: Negative Depression Screening Done: Yes 18492 - PHQ-9 Billing: Yes Source: Developed by Drs. Marco Antonio Diaz, Janeth Streeter, Alec Gayle and colleagues, with an educational lizett from [employer]. Thrive Questionnaire Date Thrive assessed: 01/25/25 I am a: Patient What is your living situation today?: I choose not to answer this question Within the past 12 months, did the food you bought not last and you didn't have the money to get more?: I choose not to answer this question Within the past 12 months, did you worry whether your food would run out before you got money to buy more?: I choose not to answer this question Do you have trouble paying for medicines?: I choose not to answer this question Do you have trouble getting transportation to medical appointments?: I choose not to answer this question Do you have trouble paying your heating and electricity bill?: I choose not to answer this question Do you have trouble taking care of your child, family member or friend?: I choose not to answer this question Do you have trouble with day-to-day activities such as bathing, preparing meals, shopping, managing finances, etc.?: I choose not to answer this question Are you currently unemployed and looking for a job?: I choose not to answer this question Are you interested in more education?: I choose not to answer this question Please select the resources that you would like help with: None Currently or been in a relationship where the following occur: I choose not to answer THRIVE Score: 0 AUDIT C Alcohol Use Questionnaire (AUDIT-C) 1. How often do you have a drink containing alcohol?: Never 3. How often do you have six or more drinks on one occasion?: Never Total Score: 0 Score Reviewed/Action Taken: Yes GUANACO-7 AMB Questionnaire GUANACO-7 Date GUANACO - 7 assessed: 01/25/25 Feeling nervous, anxious, or on edge: 0 = Not at all Not being able to stop or control worryin = Not at all Worrying too much about different things: 0 = Not at all Trouble relaxin = Not at all Being so restless that it is hard to sit still: 0 = Not at all Becoming easily annoyed or irritable: 0 = Not at all Feeling afraid as if something awful might happen: 0 = Not at all Total GUANACO-7 score (0-4 normal; 5-9 mild; 10-14 moderate; 15-21 severe): 0 Source: Developed by Drs. Marco Antonio Diaz, Janeth Streeter, Alec Gayle and colleagues, with an educational lizett from [employer]. GUANACO-7 Assessment Billing GUANACO-7 Assessment Tool: GUANACO-7 Assessment 10791 Physical exam (Primary Care) Vital Signs: Last Vital Signs Pulse 54 01/25/25 15:11 BP 130/70 01/25/25 15:11 Pulse Ox 91 L 01/25/25 15:11 BMI result Body Mass Index 38.3 Tobacco/Smoking Status: Tobacco use Status Tobacco use date assessed 01/25/25 01/25/25 15:13 Patient Tobacco Use Status Former Tobacco user 01/25/25 15:13 e-Cigarette/Vaping Use Never Used 01/25/25 15:13 PHQ-9: PHQ-9 Score PHQ-9: Total score 5 01/25/25 15:55 Depression Screening Interpretation: Negative Thrive Assessment: Date of Thrive Assessment Date Thrive assessed 01/25/25 01/25/25 15:13 Currently or been in a relationship where the following occur: I choose not to answer Coding Level of Care Code Est Pt Level 5 (54532) Diagnoses Chronic heart failure with preserved ejection fraction I50.32 Iron deficiency anemia, unspecified iron deficiency anemia type D50.9 Anemia type: iron deficiency Iron deficiency anemia type: unspecified iron deficiency Recurrent UTI N39.0 Anxiety, generalized F41.1 Risk for falls Z91.81 Paroxysmal atrial fibrillation I48.0 Interstitial cystitis N30.10 Nephropathy N28.9 Cardiomyopathy, unspecified type I42.9 Cardiomyopathy type: unspecified Additional Codes GUANACO-7 Assessment Billing - GUANACO-7 Assessment Tool: GUANACO-7 Assessment 07355 ([id number]) PHQ-9 - 30306 - PHQ-9 Billing: Yes ([id number]) Time Spent (min) 40 Comment Reviewing chart/cardiology consultation/labs/jfvg-le-tmsz with patient and son/coordinatio Assessment & Plan Assessment & Plan (1) Chronic heart failure with preserved ejection fraction: Code(s): I50.32 - Chronic diastolic (congestive) heart failure Category: Medical (2) Anemia: Code(s): D64.9 - Anemia, unspecified Category: Medical Qualifiers: Anemia type: iron deficiency Iron deficiency anemia type: unspecified iron deficiency Qualified Code(s): D50.9 - Iron deficiency anemia, unspecified (3) Recurrent UTI: Code(s): N39.0 - Urinary tract infection, site not specified Category: Medical (4) Anxiety, generalized: Code(s): F41.1 - Generalized anxiety disorder Category: Medical (5) Risk for falls: Code(s): Z91.81 - History of falling Category: Medical (6) Paroxysmal atrial fibrillation: Code(s): I48.0 - Paroxysmal atrial fibrillation Category: Medical (7) Interstitial cystitis: Code(s): N30.10 - Interstitial cystitis (chronic) without hematuria Category: Medical (8) Nephropathy: Code(s): N28.9 - Disorder of kidney and ureter, unspecified Category: Medical (9) Cardiomyopathy: Code(s): I42.9 - Cardiomyopathy, unspecified Category: Medical Qualifiers: Cardiomyopathy type: unspecified Qualified Code(s): I42.9 - Cardiomyopathy, unspecified Plan History The patient is a 74-year-old female presenting with chronic heart failure, paroxysmal atrial fibrillation, and urinary symptoms. Chronic Heart Failure: - History of congestive heart failure with preserved ejection fraction. - Medications for blood pressure and heart conditions are managed by a dental associate. - Last cardiology visit was in September, and an echocardiography was planned but delayed due to illness. - Patient reported ongoing oxygen use. Paroxysmal Atrial Fibrillation: - Patient has an implanted loop recorder. - Managed by a dental associate, Dr. Padgett. - Last seen by the dental associate in September by [facility]. Urinary Symptoms (Incontinence and Pain): - Reports of severe bladder incontinence and chronic urinary issues. - Described pain and swelling in the urethral area, making urination painful. - Has used estradiol cream for urinary complaints, but discontinued due to bleeding, then resumed on advice.. Respiratory Issues: - Recent acute respiratory issues tied to wheezing episodes post-grocery outing. - Recently recovered from a severe viral infection - Uses supplemental oxygen as needed. - patient states that she has not taken diuretic as she was planning on leaving the home today And the days when she does not take it she can hear herself wheeze a little Medical History: - Congestive heart failure with preserved ejection fraction - Paroxysmal atrial fibrillation - Multiple sclerosis - Regular degeneration (possibly macular degeneration) - Chronic anemia - Ulcerative colitis - Psychiatric history including depression and anxiety - Interstitial cystitis - Benign thyroid nodule Surgical History: - Hysterectomy - Total knee replacement, both left and right - Retinal repair - Kyphoplasty at L2 - Open-heart valve replacement surgery - Implantation of a loop recorder Medications: - Amlodipine - Gemtesia - Midoprolol - Losartan - Lexapro - Gabapentin - Torsemide - Potassium chloride - Magnesium - Doxepin - Estradiol cream - Occasional oxycodone for pain Social History:n - Experiences urinary incontinence affecting her sleep and day-to-day life Problem List - Congestive Heart Failure with preserved ejection fraction - Paroxysmal Atrial Fibrillation - Interstitial Cystitis - Urinary Incontinence - polypharmacy due to numerous medical problems - wheelchair dependent for ambulation outside the house, and in need of new wheelchair - waiting for vitamin-D report - anemia of chronic disease [place] [facility] - Reproduction Machine Loader: Dr. Padgett and Dr. Madeline Espinosa - Leather Sponger: [facility] [place] - Logistics Project Manager: Dr. Kirkpatrick - Psychiatrist: Dr. Vera - Urology at [facility] - Primary Care: Dr. Garcia Patient Instructions - Take water pills as advised when home to reduce fluid retention and alleviate wheezing. - Use oxygen when necessary to assist with breathing. - Follow the urinalysis results for any changes. - Continue using estradiol cream as advised. - Consider use of lidocaine cream for urinary discomfort if needed. Medications: Changed From losartan 50 mg See Protocol PO DAILY 90 tabs 0RF To losartan 25 mg See Protocol PO DAILY
== END 2025-01-25 16:26 | disposition home or self-care (01) ==
LOC: HO.HMCC 15:09
PROVIDERS: PCP Internal Medicine; Visit Provider Internal Medicine
DX: I50.32 Chronic diastolic (congestive) heart failure (principal); I48.0 Paroxysmal atrial fibrillation; I42.9 Cardiomyopathy, unspecified; D50.9 Iron deficiency anemia, unspecified; N39.0 Urinary tract infection, site not specified; F41.1 Generalized anxiety disorder; Z91.81 History of falling; N30.10 Interstitial cystitis (chronic) without hematuria; N28.9 Disorder of kidney and ureter, unspecified

== ENCOUNTER 2025-03-16 14:36 | Outpatient (REF) | payer MEDICARE, MEDICAID, SELFPAY | END 2025-03-16 14:37 | disposition home or self-care (01) | LOC: HO.LAB 14:36 | PROVIDERS: PCP Internal Medicine; Visit Provider Nurse Practitioner Family | DX: N39.0 Urinary tract infection, site not specified (principal) | CPT/HCPCS: 81003; 87086; 99212 ==

== ENCOUNTER 2025-03-16 14:36 | Outpatient (AMB) | payer MEDICARE, MEDICAID, SELFPAY ==
--- NOTE | 2025-03-16 14:42 | AM.OFFWIN_ITS ---
Intake Vital Signs 03/16/25 14:43 Height 5 ft Weight 191 lb BMI 37.3 BP 150/80 H Blood Pressure Location Lt brachial Position Sitting Pulse 59 Pulse Source Pulse Oximeter Temp 98.2 F Temp Source Oral Pulse Oximetry (%) 94 Oxygen Delivery Method Room Air Intake Visit Reasons: EP - ?UTI Intake Note: Bladder pain and unitary pain started a couple of weeks ago. Patient Tobacco Use Status: Former Tobacco user Allergies adhesive (ADHESIVE) Allergy (Unknown, Verified 03/16/25 15:02) LOCAL REACTION melatonin Allergy (Verified 03/16/25 15:02) PYSCHOSIS blue dye Adverse Reaction (Verified 03/16/25 15:02) Diarrhea Do you need a note to return to daycare/school/sports/work: No HPI HPI Comments History of Present Illness Details 74 y/o Female Patient who presents to [facility] walk in clinic today for c/o ongoing lower urinary tract symptoms, interstitial cystitis, and mixed urinary incontinence. Reports for the past 2 days, she has been experiencing bladder pressure, dysuria and urinary incontinence. She is being followed by Urology and was last seen 01/10/25. She is currently prescribed Gemtesa, methenamine, and vitamin-C. She reports she has not been compliant with Estrace cream(vaginal) due to difficulties on applying on herself. She was advised treatment options such as rescue solutions verses low-dose Cialis for bladder stability, and urodynamics but given patient's previous trauma she does not want to undergo any other treatment options for now. They discussed using mild sedation in the office. [facility] Medical History Status post placement of implantable loop recorder H/O cataract Incontinence Memory loss, short term Carpal tunnel syndrome on both sides Cataract CHF exacerbation History of stroke Abnormal colonoscopy (~04/03/22) Wheezing Anemia Urinary incontinence Right carpal tunnel syndrome Post cardiotomy syndrome PTSD (post-traumatic stress disorder) Osteoarthritis, hip, bilateral Interstitial cystitis Lipid disorder Insomnia Generalized anxiety disorder with panic attacks Major depression, recurrent History of ulcerative colitis Chronic GERD Diastolic congestive heart failure Paroxysmal atrial fibrillation Age related osteoporosis Asthma, moderate persistent Anticoagulant long-term use Iron deficiency anemia Establishing care with new doctor, encounter for Hypertension, essential Surgical History H/O detached retina repair H/O total knee replacement History of mastoidectomy Hx of tonsillectomy Hx of colonoscopy Hx of rotator cuff surgery History of arthroplasty of both knees Hx of hysterectomy Status post mitral valve replacement Status post aortic valve replacement History of kyphoplasty History of artificial heart valve Family History Daughter Mental health disorder Substance use disorder Father Emphysema lung Mother Heart disease Stroke Pacemaker Arthritis Family/Other Colon cancer Sister Crohn's disease Social History Household Members: Family Household Members Other:: son Housing: House Are you a primary multi care technician to a significant other at home: No Do you presently have visiting nurse or other home services: No Alcohol intake: never Patient Tobacco Use Status: Former Tobacco user e-Cigarette/Vaping Use: Never Used Substance Use Type: Marijuana Advance Directives Date on File: 03/18/22 service: No Current occupational status: retired Cognitive needs: No Hearing needs: No Vision needs: Yes Physical Exam Vital Signs: Last Vital Signs Temp 98.2 F 03/16/25 14:43 Pulse 59 03/16/25 14:43 BP 150/80 H 03/16/25 14:43 Pulse Ox 94 03/16/25 14:43 Oxygen Delivery Method Room Air 03/16/25 14:43 BMI result Body Mass Index 37.3 Const General: no acute distress; No comfortable Nutritional Appearance: obese Orientation/consciousness: patient oriented x3 Limitations: wheelchair Resp Effort & Inspection: normal respiratory effort Cardio Rhythm: regular rhythm Neuro General: patient oriented x3 Psych Speech and movement: Normal speech and movement present Results AMB Urinalysis, Automated UA Leukoctes 500 Aleisha/uL Last Edit by Edilberto Newton MA on 03/16/25 15:13 3+ Edilberto Newton 03/16/25 15:13 UA Nitrite Negative Last Edit by Edilberto Newton MA on 03/16/25 15:13 UA Urobilinogen 0.2 mg/dL Last Edit by Edilberto Newton MA on 03/16/25 15:13 UA Protein 30 mg/dL Last Edit by Edilberto Newton MA on 03/16/25 15:13 1+ Edilberto Newton 03/16/25 15:13 UA pH 6.0 Last Edit by Edilberto Newton MA on 03/16/25 15:13 UA Blood 10 Negrito/uL Last Edit by Edilberto Newton MA on 03/16/25 15:13 UA Specific [place] 1.015 Last Edit by Edilberto Newton MA on 03/16/25 15:1 3 UA Ketone Negative Last Edit by Edilberto Newton MA on 03/16/25 15:13 UA Bilirubin 0 mg/dL Last Edit by Edilberto Newton MA on 03/16/25 15:13 UA Glucose 100 mg/dL Last Edit by Edilberto Newton MA on 03/16/25 15:13 Results Reviewed Results Reviewed: Laboratory Last Values Urine pH (Auto) 6.0 03/16/25 14:41 Specific [place] (Auto) 1.015 03/16/25 14:41 Urine Protein (Auto) 30 mg/dL H* 03/16/25 14:41 Glucose (UA)(Auto) 100 mg/dL H 03/16/25 14:41 Urine Ketones (Auto) Negative 03/16/25 14:41 Urine Blood (Auto) 10 Negrito/uL H 03/16/25 14:41 Urine Nitrite (Auto) Negative 03/16/25 14:41 Urine Bilirubin (Auto) 0 mg/dL 03/16/25 14:41 Urine Urobilinogen (Auto) 0.2 mg/dL 03/16/25 14:41 Leukocyte Esterase (Auto) 500 Aleisha/uL H* 03/16/25 14:41 Assessment & Plan Assessment & Plan (1) Recurrent urinary tract infection: Code(s): N39.0 - Urinary tract infection, site not specified Plan: Urinalysis positive for LEUK Ordered Urine culture. Ordered Cephalexin - per Patient this worked well in the past. Patient requesting this. F/U with Urology. Orders: Orders 2 AMB Urinalysis Automated Today Z13.9 - Encounter for screening, unspecified Urine Culture Today N30.90 - Cystitis, unspecified without hematuria Medications: New cephalexin 500 mg PO BID 14 caps 0RF 7 days N39.0 - Urinary tract infection, site not specified Coding Level of Care Code Est Pt Level 4 (65826) Diagnoses Recurrent urinary tract infection N39.0 Time Spent (min) 20
[2025-03-16 14:43] VITALS: BP 150/80; PULSE 59; TEMP 36.8; O2SAT 94; BMI 37.3
--- OUTSIDE RECORDS SUMMARY | 2025-03-16 18:28 | XMS_ITS | Clinical Summary ---
Author Organization [facility] Address [address] [place] [phone] Phone Care Team Providers Care Dulite Machine Bluer Name Role Phone Wellington Manuel MD Primary Care Provider Allergies Active Allergy [...] Medical Devices Not on file Insurance #3 [place] [address] MEDICARE PART A & B NET FULL #[address] [place] [address] MEDICARE PART A & B FULL Member Subscriber Plan / Payer (Ef fective 2023-Present) Name:Yaneth Rodriguez Relation to Subscriber:Self Name:Yaneth Rodriguez Payer ID:Not on file Group ID:Not on file Type:Medicaid Address: [place] [id number] [place] [id number] MEDICARE PART A & B MEDICARE PART A & B MEDICARE PART A & B [employer] NET FULL MEDICARE PART A & B MEDICARE PART A & B FULL MEDICARE PART A & B [employer] NET FULL MEDICARE PART A & B [employer] NET FULL Care Teams Dulite Machine Bluer Relationship Specialty Start Date End Date Wellington Manuel MD [address] [place] [id number] PCP - General Pulmonary Disease 10/08/18 Additional Source Comments The information contained in this document represents components of the legal health record. It is not the complete legal health record.[facility]
--- OUTSIDE RECORDS SUMMARY | 2025-03-16 18:28 | XMS_ITS | Data Portability ---
Author Organization [place] - [facility], Allergy Address [address] [address] Care Team Providers Care Wax Ball Knock Out Worker Name Role Phone MARYANNE VALENTIN Primary Care Provider Assessment Encounter Date Assessment Date Assessment LastModified by Organization Details LastModified Time 09/06/2024 09/06/2024 Audiometric testing today continues to show bilateral hearing loss which should be amenable to amplification. I have given her a copy of her audiogram, medical clearance for amplification and the names of a couple of local audiologists who can program Ranku devices. [email or web address] Not available 09/06/2024 15:10:47 Plan of Treatment [...] Name and Address Organization Details Recorded Time Mixed conductiv e and sensorine ural hearing loss of left ear [id number] 107 Active 2018 Mixed conductiv e and sensorine ural hearing loss, unilatera l, left ear with restricte d hearing on the contralat eral side; Note: Date Diagnosed : 12/08/2018 2:17 PM (H90.A32) Not Available [facility] 4 02:30:22 Sensorine ural hearing loss in right ear [id number] 100 Active 2018 Sensorine ural hearing loss, unilatera l, right ear, with restricte d hearing on the contralat eral side; Note: Date Diagnosed : 12/08/2018 2:17 PM (H90.A21) Not Available [facility] 4 02:30:18 Impacted cerumen of bilateral ears [id number] 45781 Active 2021 Impacted cerumen, bilateral ; Note: Changed from H61.22 to H61.23 ( 4 1:42 PM) , Date Diagnosed : 11/05/2021 3:17 PM (H61.22) Not Available [facility] 4 02:30:29 Postmasto idectomy complicat ion 22484343 Active 2023 Other disorders following mastoidec ioana, left ear; Note: Date Diagnosed : 06/10/2023 1:36 PM (H95.192) Not Available [facility] 4 02:30:20 Severe obesity 67022401030 104 Active 2023 Morbid (severe) obesity due to excess calories; Note: Date Diagnosed : 08/03/2023 2:28 PM (E66.01) Not Available [facility] 4 02:30:13 Asthma 186770819 Active 2023 Other asthma; Note: Date Diagnosed : 08/03/2023 2:25 PM (J45.998) Not Available [facility] 4 02:30:20 Dysphonia 36718691 Active 2023 Hoarsenes s; Note: Date Diagnosed : 08/03/2023 2:25 PM (R49.0) Not Available [facility] 4 02:30:25 Dysphagia 91356329 Active 2023 Dysphagia , pharyngoe sophageal phase; Note: Date Diagnosed : 08/03/2023 2:25 PM (R13.14) Not Available [facility] 4 02:30:29 Problem Notes None recorded. Procedures Surgical History Date Name Laterality Status Provider Name and Address Organization Details Recorded Time Air & Speech Audio with Tymps - 43578, 97717 & 55669 completed CARSON ALCALA 100 [facility],[address], [address], [facility] - [facility] 09/06/2024 15:23:19 Debridement of Mastoid Cavity left completed ALBERTO FAJARDO MD 100 [facility],[address], [address], [facility] - [facility] 09/06/2024 15:08:30 Imaging Results None recorded. Procedure Notes None recorded. Medical Equipment None Reported. Allergies Allergen ID Allergen Name Allergen Category Reaction Reaction Severity Criticality Documentation Date Start Date Code Code System Note Provider Name and Address Organization Details Recorded Time 795743 adhesive tape environme nt,medica tion Not available Not available Not available 09/06/2024 Cris moses [facility] 14:49:32 Medications Name Sig Start Date Stop Date Status Note LastModified by Organization Details LastModified Time furosemid e 40 mg tablet 06/10 completed Medicati on ID: [id number] B rand Name: furosemi de Send Method: E-Prescr ibed Sub s Allowed: subs OK Medic ationGen ericName : furosemi de Not Available Not Available Not Available torsemide 20 mg tablet active Medicati on ID: [id number] B rand Name: torsemid e Send Method: E-Prescr ibed Sub s Allowed: subs OK Speci al Instruct ion: TAKE ONE TABLET BY MOUTH EVERY DAY Medi cationGe nericNam e: torsemid e Not Available Not Available Not Available tizanidin e 2 mg tablet 06/10 completed Medicati on ID: 537990 B rand Name: tizanidi ne Send Method: [...] mg tablet 06/10 completed Medicati on ID: [id number] B rand Name: quetiapi ne Send Method: E-Prescr ibed Sub s Allowed: subs OK Medic ationGen ericName : quetiapi ne Not Available Not Available Not Available potassium chloride ER 10 mEq tablet,ex tended release TAKE ONE TABLET BY MOUTH EVERY DAY active Not Available Not Available No t Available trimethop rim 100 mg tablet 06/10 completed Medicati on ID: 505771 B rand Name: trimetho prim Sen d [...] eye drops 09/06 completed Medicati on ID: [id number] D uration Value: 14 Prescri bed By [...] mg tablet 06/10 completed Medicati on ID: [id number] B rand Name: tramadol Send Method: E-Prescr [...] dental solution 09/06 completed Medicati on ID: [id number] B rand Name: PreviDen t Send Method: [...] mg capsule 06/10 completed Medicati on ID: [id number] B rand Name: nitrofur antoin macrocry stal [...] mg tablet 06/10 completed Medicati on ID: 223131 B rand Name: mirtazap ine Send Method: [...] mg tablet 06/10 completed Medicati on ID: 413170 B rand Name: zolpidem Send Method: E-Prescr ibed Sub s Allowed: subs OK Medic ationGen ericName : zolpidem Not Available Not Available Not Available Vitamin D2 1,250 mcg (50,000 unit) capsule 2018 active Medicati on ID: 768843 B rand Name: Vitamin D2 Send Method: E-Prescr ibed Sub s Allowed: subs OK Speci al Instruct ion: TAKE ONE CAPSULE BY MOUTH ONCE WEEKLY Uzma Baca Name: Vitamin D2 Not Available Not Available [...] mg tablet 06/10 completed Medicati on ID: [id number] B rand Name: Jantoven Send Method: E-Prescr ibed Sub s Allowed: subs OK Speci al Instruct ion: TAKE 1-2 TABLETS BY MOUTH DAILY DIRECT[facility] BY [facility] Kenney Potts me: Jantoven Not Available [...] delayed release 06/10 completed Medicati on ID: [id number] B rand Name: Dexilant Send Method: E-Prescr ibed Sub s Allowed: subs OK Medic ationGen ericName : Dexilant Not Available Not Available Not Available Myrbetriq 25 mg tablet,ex tended release active Medicati on ID: [id number] B rand Name: Myrbetri q Send Method: E-Prescr ibed Sub s Allowed: subs OK Medic ationGen ericName : Myrbetri q Not Available Not Available Not Available Eliquis 5 mg tablet TAKE ONE TABLET BY MOUTH TWICE A DAY 09/06 completed Not Available Not Available Not Available Breo Ellipta 100 mcg-25 mcg/dose powder for inhalatio n 09/06 completed Medicati on ID: [id number] B rand Name: Breo Ellipta Send Method: [...] Diagnosis SNOMED-CT Code Diagnosis ICD10 Code Diagnosis IMO Codes Diagnosis Note [id number] ALBERTO FAJARDO MD [facility] [address] [address] 09/06/2024 14:30:24 09/06/2024 15:27:53 Postmastoidectomy complication [id number] H95.192 Left canal wall down mastoidect anh was debrided of accumulate d squamous debris. No signs of acute or chronic inflammati on. No signs of prosthesis dislodgmen t or other mobile anomalies. Follow-up in 1 year for next mastoid debridemen t Mixed cond uctive and sensorineural hearing loss of left ear [id number] 9107 H90.A32 Sensorineu ral hearing loss in right ear 0913406678 9100 H90.A21 Right Ear:Modera tely-sever e SNHL with good speech discrimina tion.Type A tympanogra m.Left Ear:Modera te to severe MHL with good speech discrimina tion.Type B tympanogra m. [id number] CARSON ACLALA [facility] [address] [address] 09/06/2024 15:15:11 09/12/2024 11:27:39 Mixed conductive and sensorineural hearing loss of left ear [id number] 9107 H90.A32 Sensorineu ral hearing loss in right ear 4096024924 9100 H90.A21 Right Ear:Modera tely-sever e SNHL [...] ID Guarantor Name 08/31/2024 1 [place]ICARE B[place]: [employer] Yaneth Rodriguez [id number] Yaneth Rodriguez 08/31/2024 2 MEDICAID-[place]: [facility] Yaneth Rodriguez [id number] Yaneth Rodriguez Notes Date Note Type Note Provider Name and Address Organization Details Recorded Time 09/06/2024 text/html Patient with left-sided canal wall down mastoidectomy cavity comes in for mastoid debridement. Patient has hearing loss amenable to amplification. At her last visit she told me that she was gifted a pair of Sofiya hearing aids. I recommended she meet with a local senior technical business analyst to have the hearing aids adjusted to match her hearing aids. She lost this paperwork and wants to have her hearing test updated so that she can have the hearing aids adjusted. No recent pain or discharge. She feels like something is knocking around in there in the left ear. ALBERTO FAJARDO MD [address] [place] [address], [place], [address], [facility] - [facility] 09/06/2024 16:02:07 OBGyn Episode No OBEpisode recorded.
--- OUTSIDE RECORDS SUMMARY | 2025-03-16 18:28 | XMS_ITS | Clinical Summary ---
Author Organization 300 [facility] Address [address] [place] [address] Phone Care Team Providers Care Electrical Checkout Mechanic Name Role Phone Negrita Bains MD Primary Care Provider [phone] Allergies Active Allergy Reactions Criticality Noted Date [...] 1 (one) time each day. 05/21/20 Active simvastatin (ZOCOR) 40 mg tablet Take 1 tablet (40 mg total) by mouth 1 (one) time each day. 11/20/19 Active solifenacin (VESICARE) 10 mg tablet Take 1 tablet (10 mg total) by mouth 1 (one) time each day. Active vibegron (Gemtesa) 75 mg tablet tablet Take by mouth. Activ e umeclidinium-v ilanteroL (Anoro Ellipta) 62.5-25 mcg/actuation inhaler Inhale 1 puff by mouth 1 (one) time each day. 1 each 08/27/19 25 026 Active umeclidinium brm/vilanterol tr (ANORO ELLIPTA INHL) Inhale by mouth. Active amLODIPine (NORVASC) 5 mg tablet Take 1 tablet (5 mg total) by mouth 1 (one) time each day. 90 tablet 3 12/09/19 25 Active losartan (COZAAR) 50 mg tablet Take 1 tablet (50 mg total) by mouth 1 (one) time each day. 90 tablet 3 12/09/19 25 Active torsemide (DEMADEX) 20 mg tablet TAKE TWO TABLETS BY MOUTH EVERY DAY 180 tablet 1 12/22/19 25 Active potassium chloride (KLOR-CON) 10 mEq CR tablet TAKE ONE TABLET BY MOUTH EVERY DAY 90 tablet 3 02/03/20 25 Active metoprolol tartrate (LOPRESSOR) 100 mg tablet TAKE ONE TABLET BY MOUTH TWICE A DAY 180 tablet 3 03/02/20 25 Active metoprolol tartrate (LOPRESSOR) 100 mg tablet Take 1 tablet (100 mg total) by mouth 2 (two) times a day. 180 tablet 2 06/03/19 25 025 Discontinued Active Problems Problem Noted Date Diagnosed Date CVA (cerebral vascular accident) (CMS/HCC V24, C MS/HCC V28) 09/27/2024 Asthma 10/14/2022 Back pain 10/14/2022 Chronic interstitial cystitis 10/14/2022 Osteoporosis 10/14/2022 Pleural effusion, right 10/14/2022 Post-pericardiotomy syndrome 10/14/2022 Posttraumatic stress disorder 10/14/2022 Sacroiliitis ([facility] V24) 10/14/2022 Overview (04/12/2024): Last [...] with us afterwards. Severe obesity ([facility] V24, [facility] V28) 2022 Ulcerative colitis ([facility] V24, [facility] V28) (HFpEF) heart failure with p reserved ejection fraction ([facility] V24, [facility] V28) 06/17/2022 Overview (08/30/2024): Assessment [...] fracture of thoracic v ertebra ([facility] V24, [facility] V28) 01/24/2021 Atrial fibrillation ([facility] V24, [facility] V28) 0 11/19/2020 Overview (08/30/2024): previously anticoagulated with Coumadin but has had complications of severe hematuria in the past; is very uncertain based on our lack of access to [facility] records how much A-fib she truly has -Admitted at [facility] in August 2019 for for both [...] continue baby aspirin. - Request results from [facility]. - Will try to communicate with [...] mild prosthetic aortic stenosis. Echocardiogram done at [facility]. - Request results from [facility]. Hypertension 08/16/2020 Overview (04/12/2024): Last Assessment [...] echocardiogram. Fracture of thoracic spine ([facility] V24, [facility] V28) 05/26/2018 Osteoarthritis of knee 04/12/2018 Gastroesophageal reflux disease without esophagi tis 04/12/2018 Resolved Problems Problem Noted Date Diagnosed Date Resolved Date Chronic diastolic heart fail ure ([facility] V24, [facility] V28) 10/14/2022 08/30/2024 Congestive heart failure ([facility] V24, [facility] V28) 11/15/2020 08/30/2024 Overview (04/12/2024): [...] Encounters Date Type Department Care Team Description 02/28/2025 5:25 PM EDT Ancillary Procedure [facility] [address] [place] [address] 02/24/2025 [facility] [address] [place] [phone] [place] 01/30/2025 3:45 PM EDT Ancillary Procedure [facility] [address] [place] [address] 12/27/2024 6:20 PM EDT Ancillary Procedure [facility] [address] [facility] [address] [place] [address] from Last 3 Months Immunizations Immunization Administration Dates Next Due Influenza Quadravalent, 0.5m [...] Macular degeneration Anemia Congestive heart failure (CHF) ([facility] V24, [facility] V28) Ulcerative colitis ([facility] V24, [facility] V28) Asthma Back pain Anxiety [...] Care Team (Late st Contact Info) Description 03/17/2025 2:00 PM EDT Office Visit Neurosurgery [facility] [address] [place] [phone] Michael Sweet PA [address] [place] [address] 07/05/2025 10:40 AM EST Office Visit [facility] [address] [facility] [address] [place] [phone] Mich Montiel NP [address] [place] [address] Scheduled Procedures Name Priority Associated Diagnoses Date/Ti me LOOP RECORDER INSERTION Atrial fibrillation, unspecified type ([facility] V24, [facility] V28) Health Maintenance Due Date [...] Patients (1 - 1-dose 75+ series) 12/23/2023 Hypertension/CHF/CAD Annual BMP Blood Test 02/27/2024 02/26/2023, 02/26/2023 Depression Screening 05/25/2024 COVID-19 Vaccine ( season) 2025 03/28/2021, 09/24/2020, 08/27/2020 Influenza Vaccine (#1) 2025 , 03/06/2021, 03/10/2020, [...] this topic Medical Devices Implanted Type Area Transit Department Clerk Device Identifier Shelf Expiration Date Model / Serial / Lot Monitor Cardiac Insert Lux Dx Ii+ - [id number] - [id number] Implanted:Qty: 1 on 10/28/2024 by Parish Morgan MD at [facility] Cardiac Loop Recorder N/A: Chest [employer] MGMT [id number] 01/03/2026 [id number] / [id number] / Procedures Procedure Name Priority Date/Time Associated Diagnosis Comments CARDIAC DEVICE CHECK- REMOTE- MURJ Routine 02/28/2025 5:23 PM EDT CARDIAC DEVICE CHECK- REMOTE- MURJ Routine 01/30/2025 3:42 PM EDT CARDIAC DEVICE CHECK- REMOTE- MURJ Routine 12/27/2024 6:16 PM EDT ANNUAL BMP BLOOD TEST Routine 02/26/2023 LIPID PANEL Routine 06/26/2021 from Last 3 Months or Most Recently Relevant to Health Maintenance Results * Cardiac device check - Remote- MURJ (02/28/2025 5:23 PM EDT) Only the most recent of3 resultswithin the time period is included. Date Time Interrogation Session [id number] CV DEVICE CHECK Type Interrogation Session Remote Scheduled CV DEVICE CHECK Implantable Pulse Generator Transit Department Clerk BSX CV DEVICE CHECK Implantable Pulse Generator Type ILR CV DEVICE CHECK Implantable Pulse Generator Model [id number] CV DEVICE CHECK Implantable Pulse Generator Serial Number [id number] CV DEVICE CHECK Implantable Pulse Generator Implant Date 20241028 CV DEVICE CHECK Battery Status Beginning of Service CV DEVICE CHECK Atrial Tachy Statistic AT/AF [place] Percent 0.00 CV DEVICE CHECK Date of Service 2025-03-02 CV DEVICE CHECK Anatomical Region Laterality Modality Device Interroga tion 02/20/2025 1:37 AM EDT Impressions 02/28/2025 2:06 PM EDT Normal Remote: No Events * This is a normal remote diagnostic device check * Alerts or events: None * Battery data was reviewed * Battery status: ELDON, * Presenting rhythm reviewed * Heart Rate Histograms reviewed Narrative Procedure Note Parish Morgan MD - 02/28/2025 IMPRESSION: Normal Remote: No Events * This is a normal remote diagnostic device check * Alerts or events: None * Battery data was reviewed * Battery status: ELDON, * Presenting rhythm reviewed * Heart Rate Histograms reviewed Parish Morgan MD CV IMPLANTABLE CARDIAC DEVICE PROCEDURES Final Result * Annual BMP Blood Test (02/26/2023) Pathologist [facility] Annual BMP Blood Test abstracted Historical Provider HEALTH MAINTENANCE Final Result * Lipid panel (06/26/2021) Pathologist [facility] LDL/HDL Ratio 2 0 - 4 Triglycerides 146 0 - 150 mg/dL Cholesterol 123 0 - 200 mg/dL HDL 53 >=40 mg/dL LDL Cholesterol 41 0 - 100 mg/dL Blood Venous blood specimen / Unknown Historical Provider LAB BLOOD ORDERABLES Alba l Result from Last 3 Months or Most Recently Relevant to Health Maintenance Insurance MEDICARE MEDICAID [place] Advance Directives Documents on File Type Date Recorded Patient Boot And Saddle Repair Person Expl [facility] Care Decision (hx) 02/12/2023 DANIEL SANTAMARIA DIRECTIVE Care Teams Electrical Checkout Mechanic Relationship Specialty Start Date End Date Negrita Bains MD [address] [place] [address] PCP - General Internal Medicine 08/01/24
== END 2025-03-16 16:09 | disposition home or self-care (01) ==
PROVIDERS: PCP Internal Medicine; Visit Provider Nurse Practitioner Family
DX: N39.0 Urinary tract infection, site not specified (principal); Z13.9 Encounter for screening, unspecified

== ENCOUNTER 2025-04-11 15:07 | Outpatient (AMB) | payer MEDICARE, MEDICAID, SELFPAY ==
--- NOTE | 2025-04-11 15:16 | MHC.OFFVIS ---
Intake Visit Reasons: 3M PVR Intake Note: Patient presents today for 3m follow up/PVR Urology Medications:Potassium, Methenamine, Gemtesa, Vitamin B complex Blood Thinner:None Allergies to Antibiotic:No Known Allergies PVR: 0ml Integrated Circuit Design Engineer Required: No Accompanied by: Self / Same As Patient Allergies adhesive (ADHESIVE) Allergy (Unknown, Verified 04/11/25 22:18) LOCAL REACTION melatonin Allergy (Verified 04/11/25 22:18) PYSCHOSIS blue dye Adverse Reaction (Verified 04/11/25 22:18) Diarrhea Medication List - Last Reconciled 04/11/25 by ROSEMARIE Pedroza albuterol sulfate 1 vial inhalation Q4H PRN albuterol sulfate 90 mcg/actuation (Ventolin HFA) 2 puffs inhalation Q4H PRN amlodipine 5 mg See Protocol PO DAILY amoxicillin-pot clavulanate 500-125 mg (Augmentin) 1 tab PO Q8H 10 days ascorbic acid (vitamin C) 1 g PO DAILY 90 days dexlansoprazole 30 mg PO DAILY doxepin 25 mg PO BEDTIME ergocalciferol (vitamin D2) 1,250 mcg PO WE@0900 escitalopram oxalate (Lexapro) 20 mg PO DAILY ferrous sulfate (Feosol) 325 mg PO BEDTIME gabapentin 300 mg PO BID Lactobacillus acidophilus (Acidophilus capsule) 50,000 mmu cells PO DAILY lorazepam 1 mg PO BID PRN losartan 25 mg See Protocol PO DAILY magnesium 250 mg PO BEDTIME methenamine hippurate 1 g PO DAILY metoprolol tartrate (Lopressor) 100 mg PO BID qs-vdi-NU-vit L-wsktff-wfupfwy 200 mcg-15 mcg- 5 mg-1 mg (PreserVision AREDS 2 Plus Multivit) caps PO potassium chloride ER 10 mEq PO DAILY simvastatin (Zocor) 40 mg PO BEDTIME torsemide 40 mg PO DAILY umeclidinium-vilanterol 62.5-25 mcg/actuation (Anoro Ellipta) 1 ea inhalation DAILY vibegron (Gemtesa) 75 mg PO DAILY 90 days vitamin B complex 1 tab PO DAILY HPI Comments Details: Yaneth is a pleasant 74-year-old female patient of Dr. Bains who was accompanied by her son Mich at today's office visit. She has a past medical history of?diastolic CHF, iron deficiency anemia, asthma, PAF, ulcerative colitis, depression, macular degeneration, bioprosthetic aortic and mitral valve replacement on anticoagulation. She presents to the office today for follow-up of her ongoing lower urinary tract symptoms, interstitial cystitis, mixed urinary incontinence, and hematuria. In discussion with the patient today she reports since her last office visit here 3 months ago she seeked urgent care services through [facility] for UTI like symptoms at which time she was treated with a short course of cephalexin in recommendations were made to follow-up with urology. She reports since completion of cephalexin she has felt a significant improvement in episodes of incontinence she had been experiencing. She reports typically at baseline she experiences urinary urgency and frequency related to her longstanding history of interstitial cystitis however when she has a urinary tract infection she feels she has no ability to hold her urination. She has recently undergone microgen testing 04/07/25 that noted E coli, Campylobacter ureolyticus, prevotella bivia, and porphyromans somareae and has since started a course of Augmentin. She reports compliance with Gemtesa as prescribed. However does endorse to not always applying Estrace cream as prescribed. She is currently holding methenamine and vitamin-C as she is on antibiotic therapy for recent microgen results. In office urinalysis results reviewed with the patient today. PVR 0 mL. We did review further treatment options for recurrent urinary tract infections as well as mixed urinary incontinence and lower urinary tract symptoms patient continues to experience. We did discuss further treatment options of interstitial cystitis to include rescue solutions verses low-dose Cialis for bladder stability. We also discussed in office urodynamics for further assessment evaluation however given patient's previous trauma she does not wish to undergo any other treatment options for her interstitial cystitis and or urinary incontinence at this time. She would like to continue with current regimen at this time. She otherwise denies flank pain, fever, and or chills. Previous workup has included a microgen 10/15 noting Streptococcus anginosus, finegoldia magna, propionimcrobium lymphophilum, actinotignum schaalii, escherichia coli, anaerococcus prevotii, Enterococcus faecalis, Citrobacter freundii, intestinibacter bartlettii, peptoniphilus lacrimalis, gleimia europaea, corynebacterium sp, prevotella bivia, and Leana glabrata. Also a cystoscopy under sedation with Dr. Arreguin 04/16 noting diffuse mucosal erythema consistent with chronic cystitis. Previous urine cultures are as follows: 03/15 E coli, 04/15 Enterococcus faecalis, 07/17 Klebsiella pneumoniae, 08/14 E coli, 01/14 Raoultella planticola, 09/15 E coli, 12 Klebsiella pneumoniae, 09/16 E coli/Enterococcus faecalis PFS Medical History Status post placement of implantable loop recorder H/O cataract Incontinence Memory loss, short term Carpal tunnel syndrome on both sides Cataract CHF exacerbation History of stroke Abnormal colonoscopy (~04/03/22) Wheezing Anemia Urinary incontinence Right carpal tunnel syndrome Post cardiotomy syndrome PTSD (post-traumatic stress disorder) Osteoarthritis, hip, bilateral Interstitial cystitis Lipid disorder Insomnia Generalized anxiety disorder with panic attacks Major depression, recurrent History of ulcerative colitis Chronic GERD Diastolic congestive heart failure Paroxysmal atrial fibrillation Age related osteoporosis Asthma, moderate persistent Anticoagulant long-term use Iron deficiency anemia Establishing care with new doctor, encounter for Hypertension, essential Surgical History H/O detached retina repair H/O total knee replacement History of mastoidectomy Hx of tonsillectomy Hx of colonoscopy Hx of rotator cuff surgery History of arthroplasty of both knees Hx of hysterectomy Status post mitral valve replacement Status post aortic valve replacement History of kyphoplasty History of artificial heart valve Family History Daughter Mental health disorder Substance use disorder Father Emphysema lung Mother Heart disease Stroke Pacemaker Arthritis Family/Other Colon cancer Sister Crohn's disease Social History Household Members: Family Household Members Other:: son Housing: House Are you a primary acute care nursing assistant to a significant other at home: No Do you presently have visiting nurse or other home services: No Alcohol intake: never Patient Tobacco Use Status: Former Tobacco user e-Cigarette/Vaping Use: Never Used Substance Use Type: Marijuana Advance Directives Date on File: 03/18/22 service: No Current occupational status: retired Cognitive needs: No Hearing needs: No Vision needs: Yes Review of Systems Const Reports as per HPI Eyes Reports as per HPI ENT Reports as per HPI Card Reports as per HPI Resp Reports no additional complaints GI Reports as per HPI Reports as per HPI Musc Reports as per [facility] Neuro Reports as per [facility] Psych Reports no additional complaints Endo Reports no additional complaints Blayne/Lymph Reports as per HPI Physical Exam Const General: cooperative, healthy appearing, comfortable, no acute distress, well developed, alert and awake Nutritional Appearance: overweight Orientation/consciousness: patient oriented x3 Limitations: wheelchair HEENT Head: Yes normal to inspection, Yes normocephalic and Yes atraumatic Ears: hearing grossly normal bilaterally Eyes General: appearance normal, both eyes and all related structures Neck Neck: Yes normal visual inspection and Yes trachea midline Chest Chest palpation & inspection: normal inspection of the chest Resp Effort & Inspection: normal respiratory effort and able to speak in complete sentences Cardio Rate: regular rate GI Inspection: Yes normal to inspection General: Yes no CVA tenderness Back/Spine/Pelvis Back: no CVA tenderness Skin General skin exam: no rashes or lesions noted Neuro General: patient oriented x3 Extrem General: Yes normal to inspection Psych Appearance: grossly normal and well kempt Mental Status: mental status grossly normal Speech and movement: Normal speech and movement present and Clear speech present Affect: normal affect Attitude: cooperative Thought process: Normal thought process present Thought content: Normal thought content present Insight: Fair insight present (Psych) Judgement: Fair judgement present (Psych) Office Procedures Post Void Residual Post Residual Void Post Void Residual (PVR): 0 [id number] Void Residual by ultrasound Results AMB Urinalysis, Automated UA Leukoctes 0 Aleisha/uL Last Edit by Valentine Orlando on 04/11/25 17:05 UA Nitrite Negative Last Edit by Valentine Orlando on 04/11/25 17:05 UA Urobilinogen 0.2 mg/dL Last Edit by Valentine Orlando on 04/11/25 17:05 UA Protein 15 mg/dL Last Edit by Valentine Orlando on 04/11/25 17:05 UA pH 6.5 Last Edit by Valentine Orlando on 04/11/25 17:05 UA Blood 0 Negrito/uL Last Edit by Valentine Orlando on 04/11/25 17:05 UA Specific [place] 1.010 Last Edit by Valentine Orlando on 04/11/25 17:05 UA Ketone Negative Last Edit by Valentine Orlando on 04/11/25 17:05 UA Bilirubin 0 mg/dL Last Edit by Valentine Orlando on 04/11/25 17:05 UA Glucose 0 mg/dL Last Edit by Valentine Orlando on 04/11/25 17:05 Results Reviewed Results Reviewed: Laboratory Last Values Urine pH (Auto) 6.5 04/11/25 16:36 Specific [place] (Auto) 1.010 04/11/25 16:36 Urine Protein (Auto) 15 mg/dL 04/11/25 16:36 Glucose (UA)(Auto) 0 mg/dL 04/11/25 16:36 Urine Ketones (Auto) Negative 04/11/25 16:36 Urine Blood (Auto) 0 Negrito/uL 04/11/25 16:36 Urine Nitrite (Auto) Negative 04/11/25 16:36 Urine Bilirubin (Auto) 0 mg/dL 04/11/25 16:36 Urine Urobilinogen (Auto) 0.2 mg/dL 04/11/25 16:36 Leukocyte Esterase (Auto) 0 Aleisha/uL 04/11/25 16:36 Assessment & Plan Assessment & Plan (1) Interstitial cystitis: Code(s): N30.10 - Interstitial cystitis (chronic) without hematuria Category: Medical (2) Urine incontinence: Code(s): R32 - Unspecified urinary incontinence Category: Medical (3) Frequency of urination: Code(s): R35.0 - Frequency of micturition Category: Medical (4) Urinary tract infection: Code(s): N39.0 - Urinary tract infection, site not specified Category: Medical Qualifiers: Urinary tract infection type: acute cystitis Hematuria presence: without hematuria Qualified Code(s): N30.00 - Acute cystitis without hematuria Plan In office urinalysis results reviewed with the patient today; as noted above. PVR 0 mL. We discussed importance of completing antibiotic therapy as prescribed. Previous microgen results reviewed with the patient today; as noted above. Continue Gemtesa as discussed and prescribed. We discussed restart of Estrace cream as well as methenamine and vitamin-C status post completion of antibiotic therapy. We did discussed at length potential causes of lower urinary tract symptoms patient is experiencing as well as further treatment options and risks and benefits of these treatment options. All questions were answered. Discussed UTI prevention with D mannose supplement, vitamin-C, increasing fluid intake, behavioral therapy with timed voiding, perineal hygiene and postcoital voiding, and management of constipation with stool softeners and increased fiber intake Will continue with current regimen at this time. Follow-up in 3 months with PVR; or sooner with any issues, concerns, and or questions. Orders: Orders AMB Urinalysis Automated Today N30.10 - Interstitial cystitis (chronic) without hematuria, N39.0 - Urinary tract infection, site not specified, R30.0 - Dysuria, R31.0 - Gross hematuria, R32 - Unspecified urinary incontinence AMB Post Void Residual by ultrasound Today N30.10 - Interstitial cystitis (chronic) without hematuria, N39.0 - Urinary tract infection, site not specified, R31.0 - Gross hematuria, R32 - Unspecified urinary incontinence Patient Instructions: The patient had an opportunity to ask questions regarding the treatment plan. All questions were answered. Physical exam, labs, and imaging were discussed and reviewed in detail. As well as risks, benefits, and discussion of treatment choices. No major barriers to understanding were identified. The patient expressed understanding and agreement with the above treatment plan. The patient was made aware they should contact our office by phone for worsening of their current condition, the appearance of new symptoms, or with any questions or concerns. Compliance is encouraged with any medications and follow up testing that is ordered. It is a privilege to be allowed the opportunity to participate in? your urological care.? Again, if you have any questions or concerns If you have any questions or concerns please do not hesitate to contact me. The office is [phone]. This note is constructed using voice recognition software. While every effort has been made to ensure accuracy chief design branch errors may have been included. Yours sincerely, ROSEMARIE Pedroza Coding Level of Care Code Est Pt Level 4 (62225) Complex EM visit Add On G2211 Diagnoses Interstitial cystitis N30.10 Urine incontinence R32 Frequency of urination R35.0 Acute cystitis without hematuria N30.00 Urinary tract infection type: acute cystitis Hematuria presence: without hematuria CPT Codes Post Residual Void - PVR CPT Code: 80873-[id number] Void Residual by ultrasound ([id number])
--- OUTSIDE RECORDS SUMMARY | 2025-04-12 13:08 | XMS_ITS | Clinical Summary ---
Author Organization [facility] Address [address] [place] [address] Phone Care Team Providers Care Regulatory Compliance Manager Name Role Phone Wellington Manuel MD Primary Care Provider [phone] Allergies Active Allergy Reactions Criticality Noted Date [...] Medical Devices Not on file Insurance #[address] [place] [address] MEDICARE PART A & B NET FULL #[address] [place] [address] MEDICARE PART A & B FULL Member Subscriber Plan / Payer (Ef fective 2023-Present) Name:Yaneth Rodriguez Relation to Subscriber:Self Name:Yaneth Rodriguez Payer ID:Not on file Group ID:Not on file Type:Medicaid Address: [place] [id number] [place] [id number] MEDICARE PART A & B MEDICARE PART A & B MEDICARE PART A & B HEALTH SAFETY NET FULL MEDICARE PART A & B MEDICARE PART A & B FULL MEDICARE PART A & B Zang NET FULL MEDICARE PART A & B Zang NET FULL Care Teams Regulatory Compliance Manager Relationship Specialty Start Date End Date Wellington Manuel MD [address] [place] [id number] PCP - General Pulmonary Disease 10/08/18 Additional Source Comments The information contained in this document represents components of the legal health record. It is not the complete legal health record.[facility]
--- OUTSIDE RECORDS SUMMARY | 2025-04-12 13:08 | XMS_ITS | Data Portability ---
Author Organization [place] - [facility], Allergy Address [address] [address] Care Team Providers Care Microcomputer Technician Name Role Phone MARYANNE VALENTIN Primary Care Provider [phone] Assessment Encounter Date Assessment Date Assessment LastModified by Organization Details LastModified Time 09/06/2024 09/06/2024 Audiometric testing today continues to show bilateral hearing loss which should be amenable to amplification. I have given her a copy of her audiogram, medical clearance for amplification and the names of a couple of local audiologists who can program Ant[employer] devices. [email or web address] Not available 09/06/2024 15:10:47 Plan of Treatment [...] sensorine ural hearing loss of left ear [id number] 107 Active 2018 Mixed conductiv e and sensorine ural hearing loss, unilatera l, left ear with restricte d hearing on the contralat eral side; Note: Date Diagnosed : 12/08/2018 2:17 PM (H90.A32) Not Available [facility] 4 02:30:22 Sensorine ural hearing loss in right ear 58012691857 100 Active 2018 Sensorine ural hearing loss, unilatera l, right ear, with restricte d hearing on the contralat eral side; Note: Date Diagnosed : 12/08/2018 2:17 PM (H90.A21) Not Available [facility] 4 02:30:18 Impacted cerumen of bilateral ears [id number] 17601 Active 2021 Impacted cerumen, bilateral ; Note: Changed from H61.22 to H61.23 ( 4 1:42 PM) , Date Diagnosed : 11/05/2021 3:17 PM (H61.22) Not Available [facility] 4 02:30:29 Postmasto idectomy complicat ion 25393853 Active 2023 Other disorders following mastoidec ioana, left ear; Note: Date Diagnosed : 06/10/2023 1:36 PM (H95.192) Not Available [facility] 4 02:30:20 Severe obesity 22880295458 104 Active 2023 Morbid (severe) obesity due to excess calories; Note: Date Diagnosed : 08/03/2023 2:28 PM (E66.01) Not Available [facility] 4 02:30:13 Asthma 326349250 Active 2023 Other asthma; Note: Date Diagnosed : 08/03/2023 2:25 PM (J45.998) Not Available [facility] 4 02:30:20 Dysphonia 83515673 Active 2023 Hoarsenes s; Note: Date Diagnosed : 08/03/2023 2:25 PM (R49.0) Not Available [facility] 4 02:30:25 Dysphagia 23139155 Active 2023 Dysphagia , pharyngoe sophageal phase; Note: Date Diagnosed : 08/03/2023 2:25 PM (R13.14) Not Available [facility] 4 02:30:29 Problem Notes None recorded. Procedures Surgical History Date Name Laterality Status Provider Name and Address Organization Details Recorded Time Air & Speech Audio with Tymps - 32116, 85421 & 47219 completed CARSON ALCALA [address] [facility],[address], [address], [facility] - [facility] 09/06/2024 15:23:19 Debridement of Mastoid Cavity left completed ALBERTO FAJARDO MD 100 [facility],[address], [address], [facility] - [facility] 09/06/2024 15:08:30 Imaging Results None recorded. Procedure Notes None recorded. Medical Equipment None Reported. Allergies Allergen ID Allergen Name Allergen Category Reaction Reaction Severity Criticality Documentation Date Start Date Code Code System Note Provider Name and Address Organization Details Recorded Time 343087 adhesive tape environme nt,medica tion Not available Not available Not available 09/06/2024 Cris moses [facility] 14:49:32 Medications Name Sig Start Date Stop Date Status Note LastModified by Organization Details LastModified Time furosemid e 40 mg tablet 06/10 completed Medicati on ID: [id number] B rand Name: furosemi de Send Method: E-Prescr ibed Sub s Allowed: subs OK Medic ationGen ericName : furosemi de Not Available Not Available Not Available torsemide 20 mg tablet active Medicati on ID: 180389 B rand Name: torsemid e Send Method: E-Prescr ibed Sub s Allowed: subs OK Speci al Instruct ion: TAKE ONE TABLET BY MOUTH EVERY DAY Medi cationGe nericNam e: torsemid e Not Available Not Available Not Available tizanidin e 2 mg tablet 06/10 completed Medicati on ID: 073787 B rand Name: tizanidi ne Send Method: [...] mg tablet 06/10 completed Medicati on ID: 031687 B rand Name: quetiapi ne Send Method: E-Prescr ibed Sub s Allowed: subs OK Medic ationGen ericName : quetiapi ne Not Available Not Available Not Available potassium chloride ER 10 mEq tablet,ex tended release TAKE ONE TABLET BY MOUTH EVERY DAY active Not Available Not Available No t Available trimethop rim 100 mg tablet 06/10 completed Medicati on ID: 743326 B rand Name: trimetho prim Sen d [...] eye drops 09/06 completed Medicati on ID: [id number] D uration Value: 14 Prescri bed By [...] mg tablet 06/10 completed Medicati on ID: [id number] B rand Name: tramadol Send Method: E-Prescr [...] dental solution 09/06 completed Medicati on ID: 842861 B rand Name: PreviDen t Send Method: [...] mg capsule 06/10 completed Medicati on ID: 951087 B rand Name: nitrofur antoin macrocry stal [...] mg tablet 06/10 completed Medicati on ID: 709452 B rand Name: mirtazap ine Send Method: [...] mg tablet 06/10 completed Medicati on ID: 163027 B rand Name: zolpidem Send Method: E-Prescr ibed Sub s Allowed: subs OK Medic ationGen ericName : zolpidem Not Available Not Available Not Available Vitamin D2 1,250 mcg (50,000 unit) capsule 2018 active Medicati on ID: 503672 B rand Name: Vitamin D2 Send Method: [...] mg tablet 06/10 completed Medicati on ID: [id number] B rand Name: Jantoven Send Method: E-Prescr ibed Sub s Allowed: subs OK Speci al Instruct ion: TAKE 1-2 TABLETS BY MOUTH DAILY DIRECTED BY [facility] Kenney Potts me: Jantoven Not Available [...] delayed release 06/10 completed Medicati on ID: [id number] B rand Name: Dexilant Send Method: E-Prescr ibed Sub s Allowed: subs OK Medic ationGen ericName : Dexilant Not Available Not Available Not Available Myrbetriq 25 mg tablet,ex tended release active Medicati on ID: [id number] B rand Name: Myrbetri q Send Method: E-Prescr ibed Sub s Allowed: subs OK Medic ationGen ericName : Myrbetri q Not Available Not Available Not Available Eliquis 5 mg tablet TAKE ONE TABLET BY MOUTH TWICE A DAY 09/06 completed Not Available Not Available Not Available Breo Ellipta 100 mcg-25 mcg/dose powder for inhalatio n 09/06 completed Medicati on ID: [id number] B rand Name: Breo Ellipta Send Method: [...] ICD10 Code Diagnosis IMO Codes Diagnosis Note [id number] ALBERTO FAJARDO MD [facility] [address] [address] 09/06/2024 14:30:24 09/06/2024 15:27:53 Postmastoidectomy complication [id number] H95.192 Left canal wall down mastoidect anh was debrided of accumulate d squamous debris. No signs of acute or chronic inflammati on. No signs of prosthesis dislodgmen t or other mobile anomalies. Follow-up in 1 year for next mastoid debridemen t Mixed cond uctive and sensorineural hearing loss of left ear [id number] 9107 H90.A32 Sensorineu ral hearing loss in right ear 8498308706 9100 H90.A21 Right Ear:Modera tely-sever e SNHL with good speech discrimina tion.Type A tympanogra m.Left Ear:Modera te to severe MHL with good speech discrimina tion.Type B tympanogra m. [id number] CARSON ALCALA [facility] [address] [address] 09/06/2024 15:15:11 09/12/2024 11:27:39 Mixed conductive and sensorineural hearing loss of left ear 6919036660 9107 H90.A32 Sensorineu ral hearing loss in right ear 9687642575 9100 H90.A21 Right Ear:Modera tely-sever e SNHL [...] ID Guarantor Name 08/31/2024 1 MEDICARE B-[place]: [employer] SERVICES Yaneth Rodriguez [id number] Yaneth Rodriguez 08/31/2024 2 [place]ID[place] [facility] Yaneth Rodriguez [id number] Yaneth Rodriguez Notes Date Note Type Note Provider Name and Address Organization Details Recorded Time 09/06/2024 text/html Patient with left-sided canal wall down mastoidectomy cavity comes in for mastoid debridement. Patient has hearing loss amenable to amplification. At her last visit she told me that she was gifted a pair of Sofiya hearing aids. I recommended she meet with a local chemistry professor to have the hearing aids adjusted to match her hearing aids. She lost this paperwork and wants to have her hearing test updated so that she can have the hearing aids adjusted. No recent pain or discharge. She feels like something is knocking around in there in the left ear. ALBERTO FAJARDO MD [address] [place] [address], [place], [address], [facility] - [facility] 09/06/2024 16:02:07 OBGyn Episode No OBEpisode recorded.
== END 2025-04-11 16:15 | disposition home or self-care (01) ==
LOC: HO.HUSH 15:08
PROVIDERS: PCP Internal Medicine; Visit Provider Nurse Practitioner Family
DX: R31.0 Gross hematuria (principal); N30.10 Interstitial cystitis (chronic) without hematuria; R32 Unspecified urinary incontinence; R30.0 Dysuria; N39.0 Urinary tract infection, site not specified; R35.0 Frequency of micturition; N30.00 Acute cystitis without hematuria
CPT/HCPCS: 99214; G2211

== ENCOUNTER → 2025-04-11 15:07 | Outpatient (BNVA) | payer MEDICARE, MEDICAID, SELFPAY | PROVIDERS: PCP Internal Medicine; Visit Provider Nurse Practitioner Family | DX: N30.10 Interstitial cystitis (chronic) without hematuria (principal); R32 Unspecified urinary incontinence; R35.0 Frequency of micturition; N30.00 Acute cystitis without hematuria | CPT/HCPCS: 51798; 81003; 99212 ==

== ENCOUNTER 2025-05-09 13:18 | Outpatient (REF) | payer MEDICARE, MEDICAID, SELFPAY ==
[2025-05-09 16:11] LABS: MANUAL DIFF FLAG NO
[2025-05-09 16:28] LABS: Hematocrit 40.4 % (37.0-47.0); Hemoglobin 13.2 g/dl (12.0-16.0); Imm Gran Abs Auto 0.06 X10*3/uL (0.00-0.03); Imm Gran Pct Auto 0.7 % (0.0-0.4); Lymphocytes Absolute Auto 1.1 X10*3/uL (1.2-4.9); Mean Corpuscular HGB Conc 32.7 g/dl (31.0-35.0); Mean Corpuscular Hemoglobin 28.3 pg (27.0-33.0); Mean Corpuscular Volume 86.7 fL (80.0-98.0); NRBC Abs Auto 0.000 X10*3/uL (0.0-0.012); NRBC Pct Auto 0.0 /100WBC (0.0-0.2); Platelet Count 233 X10*3/uL (160-400); Red Blood Count 4.66 X10*6/uL (4.20-5.50); White Blood Count 8.4 X10*3/uL (4.8-10.8)
[2025-05-09 16:52] LABS: Alanine Aminotransferase 14 U/L (0-31); Albumin Level 4.3 g/dL (3.5-5.0); Alkaline Phosphatase 88 U/L (39-117); Anion Gap 12 (12-20); Aspartate Amino Transferase 22 U/L (5-31); Blood Urea Nitrogen 14 mg/dL (9-16); Calcium 9.4 mg/dL (8.4-10.2); Carbon Dioxide 30 mmol/L (22-29); Chloride 97 mmol/L (96-108); Estimated Glomerular Filt Rate > 60; Potassium 4.5 mmol/L (3.3-5.1); Sodium 134 mmol/L (135-145); Total Protein 6.8 g/dL (6.5-8.0)
[2025-05-09 16:55] LABS: Ferritin 176 ng/mL (10-250)
[2025-05-13 13:38] LABS: Vitamin D 25-OH, D2 <4 ng/mL; Vitamin D 25-OH, D3 62 ng/mL; Vitamin D 25-OH, Total 62 ng/mL (30-100)
[2025-06-15 15:26] LABS: Appearance Urine Turbid; Glucose Urine UA Negative (Negative); PH 6.5 (5.0-9.0); Specific Gravity - Urine <= 1.005 (1.005-1.025); UMIC TRIGGER UA YES
== END 2025-05-09 13:19 | disposition home or self-care (01) ==
LOC: HO.HMGCLDS 13:18
PROVIDERS: Nurse Practitioner Family; PCP Internal Medicine; Visit Provider Internal Medicine
DX: R42 Dizziness and giddiness (principal); D50.9 Iron deficiency anemia, unspecified; R19.7 Diarrhea, unspecified; N39.0 Urinary tract infection, site not specified; K51.919 Ulcerative colitis, unspecified with unspecified complications; R26.2 Difficulty in walking, not elsewhere classified; Z91.81 History of falling; Z79.899 Other long term (current) drug therapy
CPT/HCPCS: 36415; 80053; 82306; 82728; 83721; 84443; 85025; 99212

== ENCOUNTER 2025-05-09 13:18 | Outpatient (AMB) | payer MEDICARE, MEDICAID, SELFPAY ==
--- NOTE | 2025-05-09 13:22 | MHC.PC.OV ---
Vital Signs 05/09/25 13:26 Height 5 ft Weight 188 lb BMI 36.7 BP 130/72 Blood Pressure Location Lt brachial Position Sitting Pulse 60 Pulse Source Pulse Oximeter Pulse Oximetry (%) 92 Oxygen Delivery Method Room Air Intake Visit Reasons: 3 months f/up Allergies adhesive (ADHESIVE) Allergy (Unknown, Verified 04/11/25 22:18) LOCAL REACTION melatonin Allergy (Verified 04/11/25 22:18) PYSCHOSIS blue dye Adverse Reaction (Verified 04/11/25 22:18) Diarrhea Medication List - Last Reconciled 05/09/25 by Negrita Bains MD albuterol sulfate 1 vial inhalation Q4H PRN albuterol sulfate 90 mcg/actuation (Ventolin HFA) 2 puffs inhalation Q4H PRN amlodipine 5 mg See Protocol PO DAILY ascorbic acid (vitamin C) 1 g PO DAILY 90 days dexlansoprazole 30 mg PO DAILY doxepin 25 mg PO BEDTIME ergocalciferol (vitamin D2) 1,250 mcg PO WE@0900 escitalopram oxalate (Lexapro) 20 mg PO DAILY ferrous sulfate (Feosol) 325 mg PO BEDTIME gabapentin 300 mg PO BID Lactobacillus acidophilus (Acidophilus capsule) 50,000 mmu cells PO DAILY lorazepam 1 mg PO BID PRN losartan 25 mg See Protocol PO DAILY magnesium 250 mg PO BEDTIME methenamine hippurate 1 g PO DAILY metoprolol tartrate (Lopressor) 100 mg PO BID [id number]-SC-vit C-ixtotm-rfhumjc 200 mcg-15 mcg- 5 mg-1 mg (PreserVision AREDS 2 Plus Multivit) caps PO potassium chloride ER 10 mEq PO DAILY simvastatin (Zocor) 40 mg PO BEDTIME torsemide 40 mg PO DAILY umeclidinium-vilanterol 62.5-25 mcg/actuation (Anoro Ellipta) 1 ea inhalation DAILY vibegron (Gemtesa) 75 mg PO DAILY 90 days vitamin B complex 1 tab PO DAILY Tobacco use date assessed: 01/25/25 Dental Screening Dental Screen Date: 09/27/24 HPI HPI Comments History of Present Illness Details History of Present Illness The patient is a 74 year old female presenting with recurrent urinary tract infections, urinary incontinence, diarrhea, and trouble breathing. Recurrent Urinary Tract Infections (UTIs): - The patient reports a history of recurring UTIs and has been on and off antibiotics for almost the entire year. - She was treated with Keflex twice, and then her urologist prescribed Augmentin three times a day for 10 days after a culture was sent out. - Despite these treatments, she reports having something going on now. Urinary Incontinence: - The patient has been experiencing painful and extreme incontinence for months, which worsens at a certain point. - The incontinence has led to significant spending on disposable products, over $100 in three weeks in February. Dyspnea: - The patient reports having trouble breathing, which occurs primarily in the winter due to cold, dry air. - She now uses her oxygen almost every night, an increase from occasional use previously. - She uses a nebulizer and recently received a prescription for the solutions after a delay with the terrazzo polisher helper, Dr. Ellsworth, regarding a required Medicare code. - She also has an inhaler for use as needed and uses a humidifier, though it does not seem to help. Diarrhea: - The patient is experiencing uncontrolled diarrhea, which began after her recent course of antibiotics. - She is taking probiotics (acidophilus) in the morning and at night. - She has an endoscopy scheduled for July with Dr. Cunningham to check her stomach. Medical History: - Recurrent urinary tract infections for the past year. - Two episodes of food poisoning, one of which was severe and caused vertigo. - Water retention requiring low water consumption. - History of seeing a gis coordinator and terrazzo polisher helper with [facility]. - Recent ultrasound. Social History: - The patient experiences significant financial burden due to the cost of disposable incontinence products. Diagnostic Results: - Labs: Last labs were in September of this year. - Recent ultrasound was performed. - Urine culture was sent out by the urologist. [facility] Medical History Status post placement of implantable loop recorder H/O cataract Incontinence Memory loss, short term Carpal tunnel syndrome on both sides Cataract CHF exacerbation History of stroke Abnormal colonoscopy (~04/03/22) Wheezing Anemia Urinary incontinence Right carpal tunnel syndrome Post cardiotomy syndrome PTSD (post-traumatic stress disorder) Osteoarthritis, hip, bilateral Interstitial cystitis Lipid disorder Insomnia Generalized anxiety disorder with panic attacks Major depression, recurrent History of ulcerative colitis Chronic GERD Diastolic congestive heart failure Paroxysmal atrial fibrillation Age related osteoporosis Asthma, moderate persistent Anticoagulant long-term use Iron deficiency anemia Establishing care with new doctor, encounter for Hypertension, essential Surgical History H/O detached retina repair H/O total knee replacement History of mastoidectomy Hx of tonsillectomy Hx of colonoscopy Hx of rotator cuff surgery History of arthroplasty of both knees Hx of hysterectomy Status post mitral valve replacement Status post aortic valve replacement History of kyphoplasty History of artificial heart valve Family History Daughter Mental health disorder Substance use disorder Father Emphysema lung Mother Heart disease Stroke Pacemaker Arthritis Family/Other Colon cancer Sister Crohn's disease Social History Household Members: Family Household Members Other:: son Housing: House Are you a primary healthcare economics consultant to a significant other at home: No Do you presently have visiting nurse or other home services: No Alcohol intake: never Patient Tobacco Use Status: Former Tobacco user e-Cigarette/Vaping Use: Never Used Substance Use Type: Marijuana Advance Directives Date on File: 03/18/22 service: No Current occupational status: retired Cognitive needs: No Hearing needs: No Vision needs: Yes Questionnaire Thrive Questionnaire Date Thrive assessed: 01/25/25 I am a: Patient What is your living situation today?: I choose not to answer this question Within the past 12 months, did the food you bought not last and you didn't have the money to get more?: I choose not to answer this question Within the past 12 months, did you worry whether your food would run out before you got money to buy more?: I choose not to answer this question Do you have trouble paying for medicines?: I choose not to answer this question Do you have trouble getting transportation to medical appointments?: I choose not to answer this question Do you have trouble paying your heating and electricity bill?: I choose not to answer this question Do you have trouble taking care of your child, family member or friend?: I choose not to answer this question Do you have trouble with day-to-day activities such as bathing, preparing meals, shopping, managing finances, etc.?: I choose not to answer this question Are you currently unemployed and looking for a job?: I choose not to answer this question Are you interested in more education?: I choose not to answer this question Please select the resources that you would like help with: None Currently or been in a relationship where the following occur: I choose not to answer THRIVE Score: 0 GUANACO-7 AMB Questionnaire GUANACO-7 Date GUANACO - 7 assessed: 01/25/25 Source: Developed by Drs. Marco Antonio Diaz, Janeth Streeter, Alec Gayle and colleagues, with an educational lizett from [employer]. Review of Systems Narrative Review of Systems - General: No fever no chills - Neurological: No headaches - Ear nose throat: No sore throat no hearing difficulty no ear pain - Cardiovascular: No syncope, no chest pain, no palpitations - Gastrointestinal: No nausea vomiting Physical exam (Primary Care) Vital Signs: Last Vital Signs Pulse 60 05/09/25 13:26 BP 130/72 05/09/25 13:26 Pulse Ox 92 05/09/25 13:26 Oxygen Delivery Method Room Air 05/09/25 13:26 BMI result Body Mass Index 36.7 Tobacco/Smoking Status: Tobacco use Status Tobacco use date assessed 01/25/25 05/09/25 13:24 Patient Tobacco Use Status Former Tobacco user 05/09/25 13:24 e-Cigarette/Vaping Use Never Used 05/09/25 13:24 Thrive Assessment: Date of Thrive Assessment Date Thrive assessed 01/25/25 05/09/25 13:24 Currently or been in a relationship where the following occur: I choose not to answer Narrative Physical Exam General: No acute distress, sitting in wheel chair HEENT: No acute findings Neck: Supple Respiratory system: clear to ausculatation Cardiovascular: S1-S2 Gastrointestinal: no pain Extremities: No new findings TUNNEL HEADING INSPECTOR: Alert awake oriented x3 motor intact Skin: Normal turgor Coding Level of Care Code Est Pt Level 4 (16928) Add On Problem Visit Only Diagnoses Iron deficiency anemia, unspecified iron deficiency anemia type D50.9 Anemia type: iron deficiency Iron deficiency anemia type: unspecified iron deficiency Diarrhea, unspecified type R19.7 Diarrhea type: unspecified type Recurrent UTI N39.0 Ulcerative colitis with complication, unspecified location K51.919 Ulcerative colitis location: unspecified ulcerative colitis location Digestive disease complication type: unspecified complication Vertigo R42 Difficulty in walking R26.2 Risk for falls Z91.81 Assessment & Plan Assessment & Plan (1) Anemia: Code(s): D64.9 - Anemia, unspecified Category: Medical Qualifiers: Anemia type: iron deficiency Iron deficiency anemia type: unspecified iron deficiency Qualified Code(s): D50.9 - Iron deficiency anemia, unspecified (2) Diarrhea: Code(s): R19.7 - Diarrhea, unspecified Category: Medical Qualifiers: Diarrhea type: unspecified type Qualified Code(s): R19.7 - Diarrhea, unspecified (3) Recurrent UTI: Code(s): N39.0 - Urinary tract infection, site not specified Category: Medical (4) Ulcerative colitis: Code(s): K51.90 - Ulcerative colitis, unspecified, without complications Category: Medical Qualifiers: Ulcerative colitis location: unspecified ulcerative colitis location Digestive disease complication type: unspecified complication Qualified Code(s): K51.919 - Ulcerative colitis, unspecified with unspecified complications (5) Vertigo: Code(s): R42 - Dizziness and giddiness Category: Medical (6) Difficulty in walking: Code(s): R26.2 - Difficulty in walking, not elsewhere classified Category: Medical (7) Risk for falls: Code(s): Z91.81 - History of falling Category: Medical Plan Problem List - Recurrent Urinary Tract Infections (UTIs) - Urinary Incontinence - Diarrhea - Dyspnea - Vertigo Plan - Advised the patient to contact her Medicare insurance company to inquire about coverage for disposable incontinence products; a prescription can be provided if they are covered. - Ordered a stool test to evaluate for C Diff as a cause of her diarrhea, which has started after a course of antibiotics. - Ordered blood tests, including a hemoglobin check, as labs have not been done since September. - Ordered a urine sample for analysis. - Will send a message to the patient's urologist for further evaluation of her urinary issues.. - Advised increasing fluid intake with something like Pedialyte when experiencing diarrhea to prevent dehydration, despite her usual fluid restriction for water retention. - Will communicate any positive test results to the patient. - Advised to follow up in three months. Orders: Orders CDiff Gene PCR Today D50.9 - Iron deficiency anemia, unspecified, R19.7 - Diarrhea, unspecified Comprehensive Met. Panel Today D50.9 - Iron deficiency anemia, unspecified, R19.7 - Diarrhea, unspecified LDL Cholesterol Direct Today D50.9 - Iron deficiency anemia, unspecified, R19.7 - Diarrhea, unspecified TSH reflex Free T4 Today D50.9 - Iron deficiency anemia, unspecified, R19.7 - Diarrhea, unspecified Ferritin Today D50.9 - Iron deficiency anemia, unspecified, R19.7 - Diarrhea, unspecified Vitamin B12 Today D50.9 - Iron deficiency anemia, unspecified, R19.7 - Diarrhea, unspecified Complete Blood Count Auto Diff Today D50.9 - Iron deficiency anemia, unspecified, R19.7 - Diarrhea, unspecified Vitamin D 25-OH (D2 and D3) Today D50.9 - Iron deficiency anemia, unspecified, R19.7 - Diarrhea, unspecified UA CC w/rflx Micro + Cult Today N39.0 - Urinary tract infection, site not specified
[2025-05-09 13:26] VITALS: BP 130/72; PULSE 60; O2SAT 92; BMI 36.7
--- OUTSIDE RECORDS SUMMARY | 2025-05-09 17:19 | XMS_ITS | Clinical Summary ---
Author Organization [address] [facility] [place] Address [address] [place] [address] Phone Care Team Providers Care Roof Fitter Name Role Phone Negrita Bains MD Primary Care Provider [phone] Allergies Active Allergy Reactions Criticality Noted Date Comments Adhesive 08/16/2020 Other reaction(s): Unknown Niacin 11/15/2020 Medications ferrous sulfate 325 mg (65 mg elemental iron) tablet Take by mouth at bedtime. Taken one tablet Twice daily if she experiences more bleeding then take 06/10/19 23 Active magnesium 250 mg tablet 1 Tab daily. Active vitamin B complex vit C no.4 (SUPER B COMPLEX + C ORAL) Take by mouth. Activ e calcium carb/vit D3/minerals (CALCIUM-VITAMIN D ORAL) Take 50,000 Units by mouth [...] (one) time each day. 05/21/20 23 Active simvastatin (ZOCOR) 40 mg tablet Take 1 tablet (40 mg total) by mouth 1 (one) time each day. 11/20/19 21 Active solifenacin (VESICARE) 10 mg tablet Take 1 tablet (10 mg total) by mouth 1 (one) time each day. Active vibegron (Gemtesa) 75 mg tablet tablet Take by mouth. A ctive umeclidinium-ang anteroL (Anoro Ellipta) 62.5-25 mcg/actuation inhaler Inhale 1 [...] DAY 180 tablet 3 03/02/20 25 Active cephalexin (KEFLEX) 500 mg capsule 03/16/20 25 Active lidocaine (LIDODERM) 5 % patch APPLY 1 PATCH TO SKIN ON THE MOST PAINFUL AREA DAILY FOR UP TO 12 HOURS DIRECTED 10/29/19 25 Active naproxen (NAPROSYN) 500 mg tablet Take 1 tablet (500 mg total) by mouth 2 (two) times a day if needed. for pain 09/28/19 25 Active doxepin (SINEquan) 25 mg capsule TAKE ONE CAPSULE BY MOUTH DAILY AT BEDTIME FOR INSOMNIA 02/25/20 25 Active albuterol HFA (PROAIR HFA ; PROVENTIL HFA ; VENTOLIN HFA) 90 mcg/actuation inhaler Inhale 2 puffs by mouth every 6 (six) hours if needed for wheezing. 6.7 g 3 04/19/20 25 Active albuterol 2.5 mg /3 mL (0.083 %) nebulizer solutionIndicati ons:Severe persistent asthma without complication (CMS/HCC V28) Take 3 mL (2.5 mg total) by nebulization every 6 (six) hours if needed for wheezing. 360 mL 3 04/28/20 25 026 Active albuterol 2.5 mg /3 mL (0.083 %) nebulizer solution Take 3 mL (2.5 mg total) by nebulization every 6 (six) hours if needed for wheezing. 75 mL 3 04/19/20 25 025 Discontin ued(Reord er) albuterol 2.5 mg /3 mL (0.083 %) nebulizer solution Take 3 mL (2.5 mg total) by nebulization every 6 (six) hours if needed for wheezing. 360 mL 3 04/24/20 25 025 Discontin ued(Reord er) albuterol 2.5 mg /3 mL (0.083 %) nebulizer solutionIndicati ons:Cough, unspecified type Take 3 mL (2.5 mg total) by nebulization every 6 (six) hours if needed for wheezing. 360 mL 3 04/26/20 25 025 Discontin ued(Reord er) Hospital, Clinic, or Other Facility Administered Medication Ordered Dose Route Frequency Start Date End Date Status perflutren lipid microsphere (DEFINITY) 1.3 mL in sodium chloride 0.9% 8.7 mL injection 10 mL IV Once in imaging 04/26/2025 04/26/2025 End ed Active Problems Problem Noted Date Diagnosed Date Mid back pain 03/17/2025 Assessment & Plan (03/17/2025 3:36 PM EDT): Ms. Rodriguez describes mid back pain. She is status post kyphoplasty at all lumbar levels. She has tenderness at the bra line and around T9-10. She is otherwise neurologically intact. I am going to order x-rays of the thoracic spine. I talked to her about obtaining a nuclear medicine bone density test and a referral to endocrinology for what I presume is significant osteoporosis. She declined and said that she would discuss that with her primary care doctor. I told her I would be in touch after reviewing the x-rays of the thoracic spine. CVA (cerebral vascular accident) 09/27/2024 Asthma 10/14/2022 Back pain 10/14/2022 Chronic [...] can follow-up with us afterwards. Severe obesity 10/14/2022 Ulcerative colitis 10/14/2022 (HFpEF) heart failure with preserved ejection fr action 06/17/2022 Overview (08/30/2024): Assessment & Plan (09/29/2024 [...] physician for review. Wedge fracture of thoracic vertebra 01/24/2021 Atrial fibrillation 11/19/2020 Overview (08/30/2024): previously anticoagulated with Coumadin but has had complications of severe hematuria in the past; is very uncertain based on our lack of access to [facility] records how much A-fib she truly has -Admitted at [facility] in August 2019 for for [...] continue baby aspirin. - Request results from [facility]. - Will try to communicate [...] mild prosthetic aortic stenosis. Echocardiogram done at [facility]. - Request results from [facility]. Hypertension 08/16/2020 Overview (04/12/2024): Last [...] her echocardiogram. Fracture of thoracic spine 05/26/2018 Osteoarthritis of knee 04/12/2018 Gastroesophageal reflux disease without esophagi tis 04/12/2018 Resolved Problems Problem Noted Date Diagnosed Date Resolved Date Chronic diastolic heart failure 10/14/2022 08/30/2024 Congestive heart failure 11/15/202012/2024 Overview (04/12/2024): Congestive heart failure Last Assessment [...] Encounters Date Type Department Care Team Description 05/09/2025 Telephone [facility] - [address] [place] [address] Mich Montiel NP 04/27/2025 10:30 PM EST Ancillary Procedure [facility] - [address] [place] [address] 04/26/2025 12:30 PM EST Ancillary Procedure [facility] - [address] [place] [address] Chronic heart failure with preserved ejection fraction (CMS/HCC V24, CMS/HCC V28); Hx of aortic valve replacement 04/07/2025 10:15 PM EST Ancillary Procedure [facility] - [address] [place] [address] 04/04/2025 Telephone [facility] [address] [facility] [address] [place] [address] Michael Sweet PA 04/04/2025 Telephone [facility] - [address] [place] [address] Parish Morgan MD 03/30/2025 5:17 PM EST - 03/30/2025 11:59 PM EST [facility] Xray [address] [place] [address] Mid back pain Discharge Disposition: Home or Self Care 03/17/2025 2:00 PM EDT Office Visit [facility] [address] [facility] [address] [place] [address] Michael Sweet PA Mid back pain (Primary Dx) 02/28/2025 5:25 PM EDT Ancillary Procedure [facility] - [address] [place] [address] 02/24/2025 Telephone [facility] [address] [facility] [address] [place] [address] Misty Narvaez MA from Last 3 Months Immunizations Immunization Administration Dates Next Due Influenza Quadravalent, 0.5m l (Fluad) 65yo and older 03/05/2022 Influenza Quadravalent, 0.5m l (Fluzone High-dose) 65yo and older 04/12/2018 Influenza trivalent, with preservative (Fluzone; Afluria) 6mo and older 03/06/2021,03/10/2020,03/08/2019,2017,03/04/2017 Moderna SARS-CoV-2 COVID-19, mRNA, LNP-S, preservative free 08/27/2020 Surgical History Surgery Date Site/Laterality Comments HYSTERECTOMY [...] Macular degeneration Anemia Congestive heart failure (CHF) ([facility] V24, [facility] V28) Ulcerative colitis ([facility] V24, [facility] V28) Asthma Back pain Anxiety [...] on file Sexual Orientation Not on file Last Filed Vital Signs Vital Sign Reading Time Taken Comments Blood Pressure 144/72 04/26/2025 1:20 PM EST Pulse 58 11/09/2024 3:00 PM EDT Temperature 36.6 C (97.9 F) 11/09/2024 12:43 PM EDT Respiratory Rate 20 11/09/2024 12:43 PM EDT Oxygen Saturation 96% 11/09/2024 3:00 PM EDT Inhaled Oxygen Concentration - - Weight 86.6 kg (191 lb) 04/26/2025 1:20 PM EST Height 154.9 cm (5' 1 ) 04/26/2025 1:20 PM EST Body Mass Index 36.09 04/26/2025 1:20 PM EST Plan of Treatment Upcoming Encounters Date Type Department Care Team (Late st Contact Info) Description 06/06/2025 2:00 PM EST Office Visit Pulmonology - [address] [place] [address] Rosa M Ellsworth MD [address] [place] [phone] Scheduled Procedures Name Priority Associated Diagnoses Date/Ti me LOOP RECORDER INSERTION Atrial fibrillation, unspecified type ([facility] V24, [facility] V28) Health Maintenance Due Date Last Done Comments Drug Screen 1950 Non-Opioid Controlled Substance Agreement 1950 DTaP,Tdap,and Td Vaccines (1 - Tdap) 12/23/1967 [...] 03/28/2021, 09/24/2020, 08/27/2020 Influenza Vaccine (#1) 2025 2, 03/06/2021, 03/10/2020, [...] this topic Medical Devices Implanted Type Area Fingerprint Technician Device Identifier Shelf Expiration Date Model / Serial / Lot Monitor Cardiac Insert Lux Dx Ii+ - [id number] - [id number] Implanted:Qty: 1 on 10/28/2024 by Parish Morgan MD at [facility] Cardiac Loop Recorder N/A: Chest [employer] MGMT [id number] 01/03/2026 [id number] / [id number] / Procedures Procedure Name Priority Date/Time Associated Diagnosis Comments CARDIAC DEVICE CHECK- REMOTE- MURJ Routine 04/27/2025 10:26 PM EST TRANSTHORACIC ECHOCARDIOGRAM (TTE) COMPLETE W/ CONTRAST Routine 04/26/2025 1:21 PM EST Chronic heart failure with preserved ejection fraction (CMS/HCC V24, CMS/HCC V28) Hx of aortic valve replacement CARDIAC DEVICE CHECK- REMOTE- MURJ Routine 04/07/2025 10:14 PM EST XR THORACIC SPINE 2 VIEWS Routine 03/30/2025 5:47 PM EST Mid back pain CARDIAC DEVICE CHECK- REMOTE- MURJ Routine 02/28/2025 5:23 PM EDT ANNUAL BMP BLOOD TEST Routine 02/26/2023 LIPID PANEL Routine 06/26/2021 from Last 3 Months or Most Recently Relevant to Health Maintenance Results * Cardiac device check - Remote- MURJ (04/27/2025 10:26 PM EST) Only the most recent of3 resultswithin the time period is included. Date Time Interrogation Session [id number] CV DEVICE CHECK Type Interrogation Session Remote Scheduled CV DEVICE CHECK Implantable Pulse Generator Fingerprint Technician BSX CV DEVICE CHECK Implantable Pulse Generator Type ILR CV DEVICE CHECK Implantable Pulse Generator Model M312 CV DEVICE CHECK Implantable Pulse Generator Serial Number [id number] CV DEVICE CHECK Implantable Pulse Generator Implant Date 20241028 CV DEVICE CHECK Battery Status Beginning of Service CV DEVICE CHECK Atrial Tachy Statistic AT/AF [place] Percent 0.00 CV DEVICE CHECK Date of Service 2025-05-08 CV DEVICE CHECK Anatomical Region Laterality Modality Device Interroga tion 04/26/2025 12:3 1 AM EST Impressions 04/26/2025 5:16 PM EST Normal Remote: No Events * This is a normal remote diagnostic device check * Alerts or events: None * Battery data was reviewed * Battery status: ELDON, * Presenting rhythm reviewed * Heart Rate Histograms reviewed Additional Notes: symptom not rhythm related Narrative Procedure Note Parish Morgan MD - 04/27/2025 IMPRESSION: Normal Remote: No Events * This is a normal remote diagnostic device check * Alerts or events: None * Battery data was reviewed * Battery status: ELDON, * Presenting rhythm reviewed * Heart Rate Histograms reviewed Additional Notes: symptom not rhythm related Parish Morgan MD CV IMPLANTABLE CARDIAC DEVICE PROCEDURES Final Result * (ABNORMAL) TRANSTHORACIC ECHOCARDIOGRAM (TTE) COMPLETE W/ CONTRAST (04/26/2025 1:21 PM EST) Left Atrium Minor [place] 6.1 cm CV PACS LA Area Sys (A2C) 24 cm2 CV PACS AV Mean Gradient 15 mmHg CV PACS Ao VTI 57.8 cm CV PACS AV Peak [place] 2.7 m/s CV PACS AV Peak Gradient 28 mmHg CV PACS Ascending Aorta 4.1 cm CV PACS IVC Proximal 2.1 cm CV PACS IVSD 1.4(A) 0.6 - 0.9 cm CV PACS LVIDD 3.5(A) 3.8 - 5.2 cm CV PACS LVIDS 2.0(A) 2.2 - 3.5 cm CV PACS LVOT Mean Grad 2 mmHg CV PACS LVOT Peak VTI 23.4 cm CV PACS LVOT Mean [place] 0.7 m/s CV PACS LVOT Peak [place] 1.0 m/s CV PACS LVOT Peak Gradient 4 mmHg CV PACS LVPWD 1.4(A) 0.6 - 0.9 cm CV PACS MV Deceleration [place] 7.7 m/s2 CV PACS E Wave Deceleration Time 420(A) 119 - 242 ms CV PACS MV PHT 123 ms CV PACS MV Peak A [place] 0.56 m/s CV PACS MV Peak E [place] 2.02 m/s CV PACS MV Mean Gradient 5 mmHg CV PACS MV VTI 63.4 cm CV PACS Mitral Valve Max Velocity 2.7 m/s CV PACS MV Peak Gradient 29 mmHg CV PACS MV Area PHT 1.8 cm2 CV PACS RV S' 10 cm/s CV PACS TAPSE 15 mm CV PACS Relative Wall Thickness ratio 0.80 CV PACS LVOT:AV VTI Index 0.40 CV PACS FS 43 % CV PACS LV Mass 2D 173 g CV PACS MV VTI:LVOT VTI ratio 2.7 CV PACS AV Velocity Ratio 0.37 CV PACS E/A Ratio 3.6 CV PACS BSA 1.93 m2 CV PACS LVIDD Index 1.89 cm/m2 CV PACS LVIDS Index 1.08 cm/m2 CV PACS LV Mass Index 2D 93(A) 44 - 88 g/m2 CV PACS Ascending Aorta Index 2.22 cm/m2 CV PACS Est. RA Pressure 15 mmHg CV PACS AV Acceleration Time 86 ms CV PACS Anatomical Region Laterality Modality Ultrasound Narrative 05/05/2025 2:34 PM EST Left ventricle cavity is small. There is moderate, concentric left ventricular hypertrophy. There is normal left ventricular regional wall motion. Paradoxic septal motion is noted in keeping with prior cardiac surgery. There also appears to be septal flattening in diastole consistent with RV volume overload. Left ventricular systolic function is in the normal range with an ejection fraction of 60-65%. Right ventricle cavity is moderately enlarged. Right ventricular systolic function is moderately reduced. A bioprosthetic aortic valve is present. Prosthetic valve appears to be functioning normally with a gradient within the expected range. There is no significant aortic insufficiency noted. A bioprosthetic mitral valve is present. Prosthetic valve appears to be functioning normally with a gradient within the expected range. There is no significant mitral regurgitation noted. Shorten pulmonic valve acceleration time with flying W Doppler profile suggestive of severe pulmonary hypertension. Could not estimate RV systolic pressure via tricuspid regurgitation jet method due to insufficient tricuspid regurgitation jet. There is evidence of high right atrial pressure. The ascending aorta is dilated (4.1 cm) for age and body surface area. There is moderate left atrial enlargement. Compared with echocardiogram report from 10/02/2022, findings appear to be unchanged. I suspect there was not actual stenosis of the bioprosthesis based on the measurements given. Cannot readily pull up prior images to compare [id number] myself. Left Ventricle Left ventricle cavity is small. There is moderate concentric hypertrophy. Systolic function is normal with an ejection fraction of 60-65%. There are no regional LV wall motion abnormalities. Unable to assess diastolic function due to mitral valve replacement. There is abnormal septal motion consistent with post-operative status. There may also be septal flattening in diastole consistent with RV volume overload. Right Ventricle Right ventricle was not well visualized. Right ventricle cavity is moderately dilated. Systolic function is moderately reduced. Left Atrium Left atrium volume index is moderately increased. Right Atrium Right atrium was not well visualized. IVC/SVC RA pressure is estimated to be 15 mmHg (IVC diameter >21 mm and decreases <50% during inspiration). Mitral Valve There is a bioprosthetic mitral valve. The prosthetic valve appears to be functioning normally. There is no regurgitation. The gradient recorded across the prosthetic mitral valve is within the expected range. MV mean gradient is 5 mmHg. Tricuspid Valve The leaflets exhibit normal excursion. There is mild regurgitation. Cannot assess RVSP. Aortic Valve There is a bioprosthetic valve. The prosthetic valve appears to be functioning normally. There is no regurgitation. The gradient recorded across the prosthetic aortic valve is within the expected range. Dimensionless index is 0.4 with an acceleration time of 86 ms. Pulmonic Valve The pulmonic valve was not well visualized. Shorten pulmonic valve acceleration time with flying W Doppler profile consistent with severe pulmonary hypertension. There is trace pulmonic valve regurgitation. There is no evidence of pulmonic valve stenosis. Ascending Aorta The ascending aorta is (4.1 cm). Pericardium There is an anterior fat pad. There is no pericardial effusion. Study Details Overall the study quality was technically difficult. Definity contrast was given to enhance imaging. Study was difficult due to: poor endocardial visualization, patient body habitus and poor acoustic windows. us Mich Montiel NP CV ECHO PROCEDURES Final Result * XR Thoracic Spine 2 Views (03/30/2025 5:47 PM EST) Anatomical Region Laterality Modality Spine, T-spine Radiographic Anjana ging 03/31/2025 8:07 AM EST Impressions 03/31/2025 8:12 AM EST Limited study. Osteopenia. Multiple compression deformities. Although detail is limited no convincing interval change in the mid or lower thoracic spine. Evidence of augmentation cement in the lumbar spine at multiple levels -------- FINAL REPORT -------- Dictated By: Shant Manuel Dictated Date: 03/31/2025 08:07 ET Assigned Physician: Shant Manuel Reviewed and Electronically Signed By: Shant Manuel Signed Date: 03/31/2025 08:12 ET Workstation ID: [id number] Transcribed By: Self Edit Transcribed Date: 03/31/2025 08:07 ET Narrative 03/31/2025 8:12 AM EST EXAMINATION: THORACIC SPINE CLINICAL INFORMATION: Back pain COMPARISON: Selected parasagittal reformatted images from CT 02/10/23 TECHNIQUE: Frontal and lateral views thoracic spine FINDINGS: There is a monitoring device projected over the left hemidiaphragm. Evidence of previous sternotomy. Prosthetic aortic valve. Faint density likely related to the mitral valve. Osteopenia and overlying costal cartilage limit detail. Using the previous CT to assist with numbering the opaque cement seen in the upper lumbar spine is likely at L1. T12 is relatively normal volume. There is probably unchanged severe volume loss greatest anteriorly at T11. Moderate volume loss in the 9 is likely unchanged. There is probably some volume loss at T4. The upper thoracic and cervicothoracic junction region are not well evaluated. No large paraspinal abnormality. The lungs appear abnormal Procedure Note Shant Manuel MD - 03/31/2025 EXAMINATION: THORACIC SPINE CLINICAL INFORMATION: Back pain COMPARISON: Selected parasagittal reformatted images from CT 02/10/23 TECHNIQUE: Frontal and lateral views thoracic spine FINDINGS: There is a monitoring device projected over the left hemidiaphragm.Evidence of previous sternotomy. Prosthetic aortic valve. Faint densitylikely related to the mitral valve. Osteopenia and overlying costal cartilage limit detail. Using the previous CT to assist with numbering the opaque cement seen inthe upper lumbar spine is likely at L1. T12 is relatively normal volume.There is probably unchanged severe volume loss greatest anteriorly at T11.Moderate volume loss in the 9 is likely unchanged. There is probably somevolume loss at T4. The upper thoracic and cervicothoracic junction region are not wellevaluated. No large paraspinal abnormality. The lungs appear abnormal IMPRESSION: Limited study. Osteopenia. Multiple compression deformities. Althoughdetail is limited no convincing interval change in the mid or lowerthoracic spine. Evidence of augmentation cement in the lumbar spine at multiple levels -------- FINAL REPORT -------- Dictated By: Shant Manuel Dictated Date: 03/31/2025 08:07 ET Assigned Physician: Shant Manuel Reviewed and Electronically Signed By: Shant Manuel Signed Date: 03/31/2025 08:12 ET Workstation ID: [id number] Transcribed By: Self Edit Transcribed Date: 03/31/2025 08:07 ET Michael BARRAGAN IMG XR PROCEDURES Final Resul t * Annual BMP Blood Test (02/26/2023) Annual [...] Documents on File Type Date Recorded Patient Mobile Architect Expl anation Health Care Decision (hx) 02/12/2023 DANIEL SANTAMARIA DIRECTIVE Care Teams Roof Fitter Relationship Specialty Start Date End Date Negrita Bains MD [address] [place] [address] PCP - General Internal Medicine 08/01/24
--- OUTSIDE RECORDS SUMMARY | 2025-05-09 17:19 | XMS_ITS | Clinical Summary ---
Author Organization [facility] Address [address] [place] [address] Phone Care Team Providers Care Financial Administrator Name Role Phone Wellington Manuel MD Primary Care Provider [phone] Allergies Active Allergy Reactions Criticality Noted Date [...] Medical Devices Not on file Insurance #[address] [place] [address] MEDICARE PART A & B NET FULL #[address] [place] [address] MEDICARE PART A & B FULL Member Subscriber Plan / Payer (Ef fective 2023-Present) Name:Yaneth Rodriguez Relation to Subscriber:Self Name:Yaneth Rodriguez Payer ID:Not on file Group ID:Not on file Type:Medicaid Address: [place] [id number] [place] [id number] MEDICARE PART A & B MEDICARE PART A & B MEDICARE PART A & B [employer] NET FULL MEDICARE PART A & B MEDICARE PART A & B FULL MEDICARE PART A & B [employer] NET FULL MEDICARE PART A & B [employer] NET FULL Care Teams Financial Administrator Relationship Specialty Start Date End Date Wellington Manuel MD [address] [place] [phone] PCP - General Pulmonary Disease 10/08/18 Additional Source Comments The information contained in this document represents components of the legal health record. It is not the complete legal health record.[facility]
--- OUTSIDE RECORDS SUMMARY | 2025-05-09 17:20 | XMS_ITS | Encounter Summary ---
Author Organization [facility] [place] [address] Care Team Providers Care Icu Specialist Name Role Phone Negrita Bains MD Primary Care Provider [phone] Encounter Details Date Type Department Care Team (Late st Contact Info) Description 05/09/2025 Telephone [facility] - [facility] [address] [facility] [address] [place] [address] Mich Montiel NP [address] [place] [address] [place] [phone] Social History Tobacco Use Types Packs/Day Years [...] as of this encounter Progress Notes * Mich Montiel NP - 05/09/2025 12:06 PM EST Can we call and asked the patient how she is feeling? There was some elevated pressures on her echocardiogram that might be suggestive of some fluid overload, has she been checking her weights at home? I think we should try to schedule her to come in for an appointment within the next few weeks. documented in this encounter Plan of Treatment Upcoming Encounters Date Type Department Care Team (Late st Contact Info) Description 06/06/2025 2:00 PM EST Office Visit Pulmonology - [place] [address] [facility] [address] [place] [phone] Rosa M Ellsworth MD [address] [place] [phone] Scheduled Procedures Name Priority Associated Diagnoses Date/Ti me LOOP RECORDER INSERTION Atrial fibrillation, unspecified type (CMS/HCC V24, CMS/HCC V28) documented as of this encounter Visit Diagnoses Not on filedocumented in this encounter Care Teams Icu Specialist Relationship Specialty Start Date End Date Negrita Bains MD [address] [place] [address] PCP - General Internal Medicine 08/01/24 documented as of this encounter
--- OUTSIDE RECORDS SUMMARY | 2025-05-09 17:20 | XMS_ITS ---
DAILY UNDER BREASTS, GROIN AND ABDOMINA L FOLDS. 09/06 completed Not Available Not Available Not Available escitalop karthikeyan 20 mg tablet TAKE ONE TABLET BY MOUTH EVERY DAY TAKE WITH 5MG TABLET) active Not Available Not Available No t Available Jantoven 2 mg tablet 06/10 completed Medicati on ID: [id number] rand Name: Jantoven Send Method: E-Prescr ibed Sub s Allowed: subs OK Speci al Instruct ion: TAKE 1-2 TABLETS BY MOUTH DAILY DIRECTED BY [facility] kristy Delroy me: Jantoven Not Available Not Available [...] delayed release 06/10 completed Medicati on ID: [id number] B rand Name: Dexilant Send Method: E-Prescr ibed Sub s Allowed: subs OK Medic ationGen ericName : Dexilant Not Available Not Available Not Available Myrbetriq 25 mg tablet,ex tended release active Medicati on ID: [id number] B rand Name: Myrbetri q Send Method: E-Prescr ibed Sub s Allowed: subs OK Medic ationGen ericName : Myrbetri q Not Available Not Available Not Available Eliquis 5 mg tablet TAKE ONE TABLET BY MOUTH TWICE A DAY 09/06 completed Not Available Not Available Not Available Breo Ellipta 100 mcg-25 mcg/dose powder for inhalatio n 09/06 completed Medicati on ID: [id number] B rand Name: Linda Denton Send Method: E-Prescr ibed Sub s Allowed: [...] ICD10 Code Diagnosis IMO Codes Diagnosis Note [id number] ALBERTO FAJARDO MD [facility] [address] [address] 09/06/2024 14:30:24 09/06/2024 15:27:53 Postmastoidectomy complication [id number] H95.192 Left canal wall down mastoidect anh was debrided of accumulate d squamous debris. No signs of acute or chronic inflammati on. No signs of prosthesis dislodgmen t or other mobile anomalies. 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 [id number] CARSON ALCALA [facility] [address] [place] [address] 09/06/2024 15:15:11 09/12/2024 11:27:39 Mixed conductive and sensorineural hearing loss of left ear [id number] 9107 H90.A32 Sensorineu ral hearing loss in right ear [id number] 9100 H90.A21 Right Ear:Modera tely-sever e SNHL [...] ID Guarantor Name 08/31/2024 1 [place]ICARE B[place]: [employer] Yaneth Rodriguez [id number] Yaneth Rodriguez 08/31/2024 2 [place] [facility] Yaneth Rodriguez [id number] Yaneth Rodriguez Notes Date Note Type Note Provider Name and Address Organization Details Recorded Time 09/06/2024 text/html Patient with left-sided canal wall down mastoidectomy cavity comes in for mastoid debridement. Patient has hearing loss amenable to amplification. At her last visit she told me that she was gifted a pair of Sofiya hearing aids. I recommended she meet with a local merchandising director to have the hearing aids adjusted to match her hearing aids. She lost this paperwork and wants to have her hearing test updated so that she can have the hearing aids adjusted. No recent pain or discharge. She feels like something is knocking around in there in the left ear. ALBERTO FAJARDO MD [address] [address], [place], [address], [facility] - [facility] 09/06/2024 16:02:07 OBGyn Episode No OBEpisode recorded.
== END 2025-05-09 13:55 | disposition home or self-care (01) ==
LOC: HO.HMCC 13:19
PROVIDERS: PCP Internal Medicine; Visit Provider Internal Medicine
DX: D50.9 Iron deficiency anemia, unspecified (principal); R19.7 Diarrhea, unspecified; N39.0 Urinary tract infection, site not specified; K51.919 Ulcerative colitis, unspecified with unspecified complications; R42 Dizziness and giddiness; R26.2 Difficulty in walking, not elsewhere classified; Z91.81 History of falling